=== PATIENT | female | born 1975 | race Caucasian/White ===

== ENCOUNTER 2017-10-29 17:30 | Inpatient (IN) | payer SELFPAY ==
[~2017-10-29] VITALS: Ht 162.6 cm; Wt 47.0 kg
[~2017-10-29 17:30] MED LIST: Z.0.NO CURRENT MEDS
[2017-10-29 17:32] VITALS: BP 131/87; PULSE 118; RESP 20; TEMP 99.1; O2SAT 99
[2017-10-29] MEDS ORDERED: CLINDAMYCIN INJ 900 MG in SODIUM CHLORIDE 0.9% INJ 100 ML IV ONE (19:45)
[2017-10-29] MEDS ORDERED: MORPHINE SULFATE 4 MG/ML INJ IV PUSH ONE (19:45)
[2017-10-29] MEDS ORDERED: SODIUM CHLORIDE 0.9% FLUSH 10 ML FLUSH IVF PRN (19:45)
[2017-10-29] MEDS ORDERED: ONDANSETRON HCL 4 MG/2 ML VIAL IV PUSH ONE (19:45)
--- NOTE | 2017-10-29 21:13 | PD ---
HPI . Lower extremity infection Chief Complaint: Skin Problem Time Seen by Provider: 19:36 Travel History International Travel<30 days: No Contact w/Intl Traveler<30days: No Traveled to known affect area: No History of Present Illness HPI This patient presents complaining with bilateral lower extremity pain. Onset of symptoms was approximately 5 days ago. She reports an associated low-grade fever. Her symptoms have been getting progressively worse. She rates the pain 10/10. It is worse on the left leg than the right leg. Patient denies IV drug abuse or skin popping. Patient admits that she was hospitalized an outside facility from approximately 10/26 until approximately 10/28. She then left AMA. She is not able to give me any meaningful history regarding her stay in the hospital there. PFSH Past Medical History Anxiety: Yes Diminished Hearing: No Gastrointestinal Disorders: Yes (crohn's) Hepatitis: Yes (hep c) Tetanus Vaccination: Unknown Influenza Vaccination: No ?: Not Past Surgical History Abdominal Surgery: Yes (EXPLORATORY LAP) Hysterectomy: Yes Social History Alcohol Use: No Tobacco Use: Yes (/2 PPD) Substance Use: Yes (HX IV DRUGS) Allergies-Medications (Allergen,Severity, Reaction): Coded Allergies: codeine (Verified Allergy, Severe, 10/29/17) ketorolac (Verified Allergy, Severe, 10/29/17) penicillin G (Unverified Allergy, Severe, 10/29/17) Reported Meds & Prescriptions Reported Meds & Active Scripts Active No Active Prescriptions or Reported Medications Review of Systems Except as stated in HPI: all other systems reviewed are Neg General / Constitutional: Positive: Fever Gastrointestinal: No: Nausea, Vomiting, Diarrhea Skin: Positive Change in Pigmentation, Positive Lesions Physical Exam Narrative GENERAL: This is a thin, chronically ill-appearing woman who looks older than her stated age of 42. SKIN: warm/dry. She has numerous pitted lesions on her arms and legs. She has large, black blisters on both lower extremities. Other areas of her lower extremities have tightly adherent black tissue. She has redness and warmth of the skin of the lower extremities, left worse than right. She has a similar lesion on the left auricle. HEAD: Normocephalic. EYES: Pupils equal and round. No scleral icterus. No injection or drainage. ENT: No nasal bleeding or discharge. Mucous membranes pink and moist. NECK: Trachea midline. Full range of motion without pain.. CARDIOVASCULAR: Regular rate and rhythm. Heart sounds are normal. RESPIRATORY: No accessory muscle use. Clear to auscultation. Breath sounds equal bilaterally. GASTROINTESTINAL: Abdomen soft. Nontender. Bowel sounds present. Nondistended. MUSCULOSKELETAL: No obvious deformities. NEUROLOGICAL: Awake and alert. No obvious cranial nerve deficits. Motor grossly within normal limits. Normal speech. PSYCHIATRIC: Appropriate mood and affect; insight and judgment normal. Data Data Last Documented VS Vital Signs Date Time Temp Pulse Resp B/P (MAP) Pulse Ox O2 Delivery O2 Flow Rate FiO2 10/29/17 17:32 99.1 118 20 131/87 (102) 99 Room Air Orders Orders Basic Metabolic Panel (Bmp) (10/29/17 19:43) Complete Blood Count With Diff (10/29/17 19:43) Blood Culture (10/29/17 19:43) Iv Access Insert/Monitor (10/29/17 19:43) Sodium Chloride 0.9% Flush (Ns Flush) (10/29/17 19:45) Clindamycin Inj (Cleocin Inj) (10/29/17 19:45) Morphine Inj (Morphine Inj) (10/29/17 19:45) Ondansetron Inj (Zofran Inj) (10/29/17 19:45) Ct Tib/Fib W Iv Contrast (10/29/17 ) Ct Tib/Fib W Iv Contrast (10/29/17 ) Drug Screen, Random Urine (10/29/17 20:47) Iohexol 350 Inj (Omnipaque 350 Inj) (10/29/17 23:19) Admit Order (Ed Use Only) (10/30/17 ) Vital Signs (Adult) Q4H (10/30/17 00:04) Diet Heart Healthy (10/30/17 Breakfast) Activity Oob With Assistance (10/30/17 00:04) Notify Dr: Other (10/30/17 00:04) Labs Laboratory Tests Test 10/29/17 21:08 10/29/17 21:35 Urine Opiates Screen POS Urine Barbiturates Screen NEG Urine Amphetamines Screen NEG Urine Benzodiazepines Screen NEG Urine Cocaine Screen POS Urine Cannabinoids Screen NEG White Blood Count 7.5 TH/MM3 Red Blood Count 4.13 MIL/MM3 Hemoglobin 11.2 GM/DL Hematocrit 33.5 % Mean Corpuscular Volume 81.2 FL Mean Corpuscular Hemoglobin 27.1 PG Mean Corpuscular Hemoglobin Concent 33.4 % Red Cell Distribution Width 15.7 % Platelet Count 211 TH/MM3 Mean Platelet Volume 8.4 FL Neutrophils (%) (Auto) 55.3 % Lymphocytes (%) (Auto) 32.7 % Monocytes (%) (Auto) 10.5 % Eosinophils (%) (Auto) 1.1 % Basophils (%) (Auto) 0.4 % Neutrophils # (Auto) 4.2 TH/MM3 Lymphocytes # (Auto) 2.5 TH/MM3 Monocytes # (Auto) 0.8 TH/MM3 Eosinophils # (Auto) 0.1 TH/MM3 Basophils # (Auto) 0.0 TH/MM3 CBC Comment DIFF FINAL Differential Comment Blood Urea Nitrogen 9 MG/DL Creatinine 0.73 MG/DL Random Glucose 89 MG/DL Calcium Level 8.3 MG/DL Sodium Level 133 MEQ/L Potassium Level 3.5 MEQ/L Chloride Level 99 MEQ/L Carbon Dioxide Level 27.7 MEQ/L Anion Gap 6 MEQ/L Estimat Glomerular Filtration Rate 87 ML/MIN MDM Medical Decision Making Medical Screen Exam Complete: Yes Emergency Medical Condition: Yes Medical Record Reviewed: Yes (medical records were obtained from [facility]. She had a drug screen positive for amphetamines, cocaine and opiates. She had a normal white blood count of 7.2 on 10/28. Blood cultures there were negative. Bilateral lower extremity ultrasounds were negative. ID consult was obtained. She was treated there with vancomycin, aztreonam and minocycline.) Differential Diagnosis My differential diagnosis includes but is not limited to localized wound infection, cellulitis, abscess Narrative Course This patient presents with cellulitis and necrotic skin of both lower extremities, left worse than right. I have ordered a CT of her lower extremities to rule out necrotizing fasciitis. Routine labs and blood cultures are also pending. I have ordered clindamycin. This was before I saw ID's recommendations for vancomycin, aztreonam and minocycline. However, her blood cultures there were negative. These medications were possibly not working. CBC & BMP Diagram 10/29/17 21:35 Calcium Level 8.3 L Drug screen is positive for opiates and cocaine CTs shows soft tissue swelling but no evidence of abscess and no evidence of necrotizing fasciitis. The patient will be admitted to the hospital for IV antibiotics and aggressive wound care. Sepsis Criteria SIRS Criteria (2 or more): Heart rate over 90 Sepsis Criteria (SIRS+source): Infect source susp/known Physician Communication Physician Communication Dr. Cifuentes Diagnosis Primary Impression: Cellulitis of leg, right Additional Impression: Cellulitis of leg, left Admitting Information Admitting Physician Requests: Admit Scripts No Active Prescriptions or Reported Meds Condition: Stable Oralia Dinh MD Oct 29, 2017 21:13
[2017-10-29 22:29] LABS: AUTOMATED NEUTROPHIL # 4.2 TH/MM3 (1.8-7.7); BASOPHIL % 0.4 % (0.0-2.0); EOSINOPHIL # 0.1 TH/MM3 (0-0.4); EOSINOPHIL % 1.1 % (0.0-4.0); HEMATOCRIT 33.5 % (35.0-46.0); HEMO FLAGS DIFF FINAL; LYMPH % 32.7 % (9.0-44.0); LYMPHOCYTE # 2.5 TH/MM3 (1.0-4.8); MEAN CELL VOLUME 81.2 FL (80.0-100.0); MEAN CORPUSCULAR HEMOGLOBIN 27.1 PG (27.0-34.0); MEAN CORPUSCULAR HGB CONC 33.4 % (32.0-36.0); MONO % 10.5 % (0.0-8.0); NEUT % 55.3 % (16.0-70.0); PLATELET COUNT 211 TH/MM3 (150-450); RED BLOOD COUNT 4.13 MIL/MM3 (4.00-5.30); RED CELL DISTRIBUTION WIDTH 15.7 % (11.6-17.2); WHITE BLOOD COUNT 7.5 TH/MM3 (4.0-11.0)
[2017-10-29 22:51] LABS: BICARBONATE 27.7 MEQ/L (21.0-32.0); POTASSIUM 3.5 MEQ/L (3.5-5.1)
[2017-10-29] MEDS ORDERED: IOHEXOL 350 MG/ML 10 ML VIAL (for RAD DIAG) IVCONTRAST ONE (23:19)
--- NOTE | 2017-10-29 23:44 | RADRPT ---
EXAM DATE/TIME: 10/29/2017 23:14 [facility] COMPARISON: No previous studies available for comparison. INDICATIONS : Bilateral lower leg infections. IV CONTRAST: 100 cc Omnipaque 350 (iohexol) IV ; Cumulative dose for multiple exams. RADIATION DOSE: 7.29 CTDIvol (mGy) ; Combined studies MEDICAL HISTORY : Hepatitis C. IVDU SURGICAL HISTORY : None. ENCOUNTER: Initial ACUITY: 1 day PAIN SCALE: 10/10 LOCATION: Bilateral lower legs. TECHNIQUE: Volumetric scanning of the tibia and fibula was performed. Using automated exposure control and adju stment of the mA and/or kV according to patient size, radiation dose was kept as low as reasonably ac hievable to obtain optimal diagnostic quality images. DICOM format image data is available [facility] for review and comparison. FINDINGS: BONES: No evidence of fracture. Alignment is within normal limits. JOINTS: No evidence of joint narrowing or effusion. SOFT TISSUES: Muscles, tendons, and neurovascular structures are grossly unremarkable. No evidence of mass, organi zed fluid collection or foreign body. There is subcutaneous edema of the left leg from the knee infer iorly to the foot greatest dorsally. No focal fluid collections are identified. No evidence of absces s. There is prominent edema along the lateral posterior aspect of the foot in the region of the heel. CONCLUSION: Soft tissue swelling without evidence for abscess or evidence of osteomyelitis. Juan Walker MD on October 29, 2017 at 23:40 Board Certified Radiologist. This report was verified electronically.
--- NOTE | 2017-10-29 23:45 | RADRPT ---
EXAM DATE/TIME: 10/29/2017 23:14 [facility] COMPARISON: CT TIBIA/FIBULA, W/CONTRAST, LEFT, October 29, 2017, 23:14. INDICATIONS : Bilateral lower leg infections. IV CONTRAST: 100 cc Omnipaque 350 (iohexol) IV ; Cumulative dose for multiple exams. RADIATION DOSE: 7.29 CTDIvol (mGy) ; Combined studies MEDICAL HISTORY : Hepatitis C. IVDU SURGICAL HISTORY : None. ENCOUNTER: Initial ACUITY: 1 week PAIN SCALE: 10/10 LOCATION: Bilateral lower legs. TECHNIQUE: Volumetric scanning of the tibia and fibula was performed. Using automated exposure control and adju stment of the mA and/or kV according to patient size, radiation dose was kept as low as reasonably ac hievable to obtain optimal diagnostic quality images. DICOM format image data is available [facility] for review and comparison. FINDINGS: BONES: No evidence of fracture. Alignment is within normal limits. JOINTS: No evidence of joint narrowing or effusion. SOFT TISSUES: Muscles, tendons, and neurovascular structures are grossly unremarkable. No evidence of mass, organi zed fluid collection or foreign body. The there is mild subcutaneous edema of the lower leg increasin g dorsally at the level of the foot without evidence for abscess, mass or osteomyelitis. CONCLUSION: Mild diffuse subcutaneous edema as above. No abscess. Juan Walker MD on October 29, 2017 at 23:43 Board Certified Radiologist. This report was verified electronically.
[2017-10-30] VITALS (8 sets, daily range): BP systolic 103–144; BP diastolic 65–101; PULSE 91–106; RESP 18–20; TEMP 98.4–99.5; O2SAT 95–100
[2017-10-30] MEDS ORDERED: SENNOSIDES 8.6 MG TAB PO PRN (00:15)
[2017-10-30] MEDS: HEPARIN SODIUM - SQ 10,000 UNITS/ML VIAL SQ SCH ×2 (00:15→14:30)
[2017-10-30] MEDS ORDERED: ACETAMINOPHEN 325 MG TAB PO PRN (00:15)
[2017-10-30] MEDS ORDERED: MAGNESIUM HYDROXIDE SUSP 30 ML CUP PO PRN (00:15)
[2017-10-30] MEDS ORDERED: SODIUM CHLORIDE 0.9% FLUSH 10 ML FLUSH IV FLUSH PRN (00:15)
[2017-10-30] MEDS ORDERED: NALOXONE HCL 0.4 MG/ML AMP IV PUSH PRN (00:15)
[2017-10-30] MEDS ORDERED: LACTULOSE SYRUP 20 GM/30 ML CUP PO PRN (00:15)
[2017-10-30] MEDS ORDERED: BISACODYL 10 MG SUPP RECTAL PRN (00:15)
[2017-10-30] MEDS ORDERED: Vancomycin Consult Pharmacy 1 EA OTHER SCH (00:15)
[2017-10-30] MEDS ORDERED: PIPERACIL-TAZO 3.375 GM PREMIX 50 ML IV SCH ×2 (01:30→09:00)
[2017-10-30] MEDS ORDERED: VANCOMYCIN INJ 800 MG in SODIUM CHLOR 0.9% 250 ML INJ 250 ML IV SCH (02:00)
[2017-10-30 07:53] LABS: AUTOMATED NEUTROPHIL # 3.5 TH/MM3 (1.8-7.7); BASOPHIL % 0.5 % (0.0-2.0); EOSINOPHIL # 0.1 TH/MM3 (0-0.4); HEMATOCRIT 32.6 % (35.0-46.0); HEMO FLAGS DIFF FINAL; LYMPH % 28.8 % (9.0-44.0); LYMPHOCYTE # 1.7 TH/MM3 (1.0-4.8); MEAN CELL VOLUME 80.8 FL (80.0-100.0); MEAN CORPUSCULAR HEMOGLOBIN 26.5 PG (27.0-34.0); MEAN CORPUSCULAR HGB CONC 32.8 % (32.0-36.0); MONO % 10.1 % (0.0-8.0); NEUT % 59.6 % (16.0-70.0); PLATELET COUNT 232 TH/MM3 (150-450); RED BLOOD COUNT 4.03 MIL/MM3 (4.00-5.30); RED CELL DISTRIBUTION WIDTH 15.5 % (11.6-17.2); WHITE BLOOD COUNT 5.8 TH/MM3 (4.0-11.0)
[2017-10-30 08:11] LABS: POTASSIUM 3.8 MEQ/L (3.5-5.1)
[2017-10-30] MEDS: SODIUM CHLORIDE 0.9% FLUSH 10 ML FLUSH IV FLUSH SCH ×2 (08:30→21:51)
[2017-10-30] MEDS: DOCUSATE SODIUM 50 MG/SENNA 8.6 MG TAB PO SCH ×2 (08:30→21:50)
--- NOTE | 2017-10-30 08:33 | HHI.HP ---
[facility] Service [facility] Primary Care Physician No Primary Care Physician Admission Diagnosis cellulitis Diagnoses: (1) Cellulitis of leg, right Diagnosis: Principal Chief Complaint: infection of both legs Travel History International Travel<30 Days: No Contact w/Intl Traveler <30 Da: No Traveled to Known Affected Are: No History of Present Illness patient is a 42 y/o female with history of Crohn's disease and hepatitis C, who presented to ER with pain, swelling and erythema of both legs. she says that it started as a ' black spot' on the left leg. this gradually got worse with progressive swelling and erythema of both legs- more on the left side. she went to [place] where she was started on antibiotics- however she left against medical advice.she says that she had on and off low grade fever. pain was moderate at the time of my evaluation. Review of Systems Constitutional: COMPLAINS OF: Fever, DENIES: Weight loss, Chills, Night Sweats Eyes: DENIES: Blurred vision, Diplopia, Vision loss, Double Vision Ears, nose, mouth, throat: DENIES: Tinnitus, Vertigo, Throat pain, Epistaxis Respiratory: DENIES: Apneas, Cough, Snoring, Wheezing, Hemoptysis, Sputum production, Shortness of breath Cardiovascular: DENIES: Chest pain, Palpitations, Syncope, Dyspnea on Exertion , PND, Lower Extremity Edema, Orthopnea, Claudication Gastrointestinal: DENIES: Abdominal pain, Black stools, Bloody stools, Constipation, Diarrhea, Nausea, Vomiting, Difficulty Swallowing, Anorexia Genitourinary: DENIES: Urinary frequency, Urgency, Hematuria, Dysuria Musculoskeletal: COMPLAINS OF: Muscle aches (both legs.), DENIES: Joint pain, Stiffness, Joint Swelling Integumentary: DENIES: Rash Neurologic: DENIES: Abnormal gait, Headache, Localized weakness, Paresthesias, Seizures, Speech Problems, Tremor, Poor Balance Psychiatric: DENIES: Anxiety, Confusion, Mood changes, Depression, Hallucinations, Agitation, Suicidal Ideation, Homicidal Ideation, Delusions Past Family Social History Past Medical History Crohn's disease. hepatitis C. Past Surgical History hysterectomy. Reported Medications none reported. Allergies: Coded Allergies: codeine (Verified Allergy, Severe, 10/29/17) ketorolac (Verified Allergy, Severe, 10/29/17) penicillin G (Verified Allergy, Intermediate, Rash, 10/30/17) Active Ordered Medications Current Medications Sodium Chloride (NS Flush) 2 ml UNSCH PRN IVF FLUSH AFTER USING IV ACCESS; Start 10/29/17 at 19:45 Clindamycin Phosphate 900 mg/ Sodium Chloride 106 ml @ 200 mls/hr ONCE ONCE IV Last administered on 10/29/17 21:56; Start 10/29/17 at 19:45; Stop at 20:16; Status DC Morphine Sulfate (Morphine Inj) 4 mg ONCE ONCE IV PUSH Last administered on 21:56; Start 10/29/17 at 19:45; Stop 10/29/17 at 19:49; Status DC Ondansetron HCl (Zofran Inj) 4 mg ONCE ONCE IV PUSH Last administered on 21:57; Start 10/29/17 at 19:45; Stop 10/29/17 at 19:49; Status DC Iohexol (Omnipaque 350 Inj) 100 ml STK-MED ONCE IVCONTRAST Last administered on 10/29/17 23:19; Start 10/29/17 at 23:19; Stop 10/29/17 at 23:20; Status DC Sodium Chloride (NS Flush) 2 ml UNSCH PRN IV FLUSH FLUSH AFTER USING IV ACCESS ; Start 10/30/17 at 00:15 Sodium Chloride (NS Flush) 2 ml BID IV FLUSH ; Start 10/30/17 at 09:00 Acetaminophen (Tylenol) 650 mg Q4H PRN PO TEMP > 100.4; Start 10/30/17 at 00:15 Ondansetron HCl (Zofran Inj) 4 mg Q6H PRN IVP NAUSEA OR VOMITING; Start at 00:15 Heparin Sodium (Porcine) (Heparin Inj) 5,000 units Q12H SQ ; Start 10/30/17 at 00:15 Naloxone HCl (Narcan Inj) 0.4 mg UNSCH PRN IV PUSH SEE LABEL COMMENTS; Start 10/30/17 at 00:15 Senna/Docusate Sodium (Damari-Colace) 1 tab BID PO ; Start 10/30/17 at 09:00 Magnesium Hydroxide (Milk Of Magnesia Liq) 30 ml Q12H PRN PO Mild constipation ; Start 10/30/17 at 00:15 Sennosides (Senokot) 17.2 mg Q12H PRN PO Moderate constipation; Start 10/30/17 at 00:15 Bisacodyl (Dulcolax Supp) 10 mg DAILY PRN RECTAL SEVERE CONSITIPATION/ IF NPO; Start 10/30/17 at 00:15 Lactulose (Lactulose Liq) 30 ml DAILY PRN PO SEVERE CONSITIPATION/ IF PO; Start 10/30/17 at 00:15 Pharmacy Profile Note 0 ml @ 0 mls/hr UNSCH OTHER ; Start 10/30/17 at 00:15 Vancomycin HCl 800 mg/Sodium Chloride 258 ml @ 250 mls/hr DAILY@0200 IV Last administered on 10/30/17 02:43; Start 10/30/17 at 02:00; Stop 10/30/17 at 06:00 ; Status DC Piperacillin Sod/ Tazobactam Sod 50 ml @ 100 mls/hr Q6H IV Last administered on 10/30/17 02:43; Start 10/30/17 at 01:30; Stop 10/30/17 at 07:31; Status DC Piperacillin Sod/ Tazobactam Sod 50 ml @ 100 mls/hr Q6H IV ; Start 10/30/17 at 09:00 Family History not relevant to this presentation. Social History smokes half a pack a day. doesn't drink. no illicit drug abuse. Physical Exam Vital Signs Vital Signs Date Time Temp Pulse Resp B/P (MAP) Pulse Ox O2 Delivery O2 Flow Rate FiO2 10/30/17 08:18 99.5 101 18 122/88 (99) 96 10/30/17 06:34 99.5 106 18 109/65 (80) 95 10/30/17 01:50 99.1 104 19 106/76 (86) 97 10/30/17 01:00 102 20 103/67 (79) 96 10/29/17 17:32 99.1 118 20 131/87 (102) 99 Room Air Physical Exam GENERAL: This is a well-nourished, well-developed patient, in no apparent distress. SKIN: erythema of both legs. HEAD: Atraumatic. Normocephalic. No temporal or scalp tenderness. EYES: Pupils equal round and reactive. Extraocular motions intact. No scleral icterus. No injection or drainage. ENT: Nose without bleeding, purulent drainage or septal hematoma. Throat without erythema, tonsillar hypertrophy or exudate. Uvula midline. Airway patent. NECK: Trachea midline. No JVD or lymphadenopathy. Supple, nontender, no meningeal signs. CARDIOVASCULAR: Regular rate and rhythm without murmurs, gallops, or rubs. RESPIRATORY: Clear to auscultation. Breath sounds equal bilaterally. No wheezes , rales, or rhonchi. GASTROINTESTINAL: Abdomen soft, non-tender, nondistended. No hepato-splenomegaly , or palpable masses. No guarding. MUSCULOSKELETAL: both legs/ feet warm, tender with some erythema- more on the left side. NEUROLOGICAL: Awake and alert. Cranial nerves II through XII intact. Motor and sensory grossly within normal limits. Five out of 5 muscle strength in all muscle groups. Normal speech. Laboratory Laboratory Tests Test 10/29/17 21:08 10/29/17 21:35 10/30/17 07:19 Urine Opiates Screen POS Urine Barbiturates Screen NEG Urine Amphetamines Screen NEG Urine Benzodiazepines Screen NEG Urine Cocaine Screen POS Urine Cannabinoids Screen NEG White Blood Count 7.5 5.8 Red Blood Count 4.13 4.03 Hemoglobin 11.2 10.7 Hematocrit 33.5 32.6 Mean Corpuscular Volume 81.2 80.8 Mean Corpuscular Hemoglobin 27.1 26.5 Mean Corpuscular Hemoglobin Concent 33.4 32.8 Red Cell Distribution Width 15.7 15.5 Platelet Count 211 232 Mean Platelet Volume 8.4 7.8 Neutrophils (%) (Auto) 55.3 59.6 Lymphocytes (%) (Auto) 32.7 28.8 Monocytes (%) (Auto) 10.5 10.1 Eosinophils (%) (Auto) 1.1 1.0 Basophils (%) (Auto) 0.4 0.5 Neutrophils # (Auto) 4.2 3.5 Lymphocytes # (Auto) 2.5 1.7 Monocytes # (Auto) 0.8 0.6 Eosinophils # (Auto) 0.1 0.1 Basophils # (Auto) 0.0 0.0 CBC Comment DIFF FINAL DIFF FINAL Differential Comment Blood Urea Nitrogen 9 7 Creatinine 0.73 0.60 Random Glucose 89 106 Calcium Level 8.3 8.2 Sodium Level 133 135 Potassium Level 3.5 3.8 Chloride Level 99 101 Carbon Dioxide Level 27.7 26.0 Anion Gap 6 8 Estimat Glomerular Filtration Rate 87 109 Date/Time Source Procedure Growth Status 10/29/17 21:50 Blood Peripheral Aerobic Blood Culture Pending Received 10/29/17 21:50 Blood Peripheral Anaerobic Blood Culture Pending Received Result Diagram: 10/30/17 0719 10/30/17 0719 Imaging Last Impressions Lower Extremity CT 10/29/17 0000 Signed Impressions: Service Date/Time: Sunday, October 29, 2017 23:14 - CONCLUSION: Mild diffuse subcutaneous edema as above. No abscess. MD Hernán Luong VTE Risk Assessment Hernán VTE Risk Assessment: Mod/High Risk (score >= 2) [place] Risk Assessment Model Point Value = 1 Point Value = 2 Point Value = 3 Point Value = 5 Age 41-60 Minor surgery BMI > 25 kg/m2 Swollen legs Varicose veins or History of unexplained or recurrent spontaneous Oral contraceptives or hormone replacement Sepsis (< 1 month) Serious lung disease, including pneumonia (< 1 month) Abnormal pulmonary function Acute myocardial infarction Congestive heart failure (< 1 month) History of inflammatory bowel disease Medical patient at bed rest Age 61-74 Arthroscopic surgery Major open surgery (> 45 min) Laparoscopic surgery (> 45 min) Malignancy Confined to bed (> 72 hours) Immobilizing plaster cast Central venous access Age >= 75 History of VTE Family history of VTE Factor V Leiden Prothrombin [id number] Lupus anticoagulant Anticardiolipin antibodies Elevated serum homocysteine Heparin-induced thrombocytopenia Other congenital or acquired thrombophilia Stroke (< 1 month) Elective arthroplasty Hip, pelvis, or leg fracture Acute spinal cord injury (< 1 month) Prophylaxis Regimen Total Risk Factor Score Risk Level Prophylaxis Regimen 0-1 Low Early ambulation 2 Moderate Order ONE of the following: *Sequential Compression Device (SCD) *Heparin 5000 units SQ BID 3-4 Higher Order ONE of the following medications: *Heparin 5000 units SQ TID *Enoxaparin/Lovenox 40 mg SQ daily (WT < 150 kg, CrCl > 30 mL/min) *Enoxaparin/Lovenox 30 mg SQ daily (WT < 150 kg, CrCl > 10-29 mL/min) *Enoxaparin/Lovenox 30 mg SQ BID (WT < 150 kg, CrCl > 30 mL/min) AND/OR *Sequential Compression Device (SCD) 5 or more Highest Order ONE of the following medications: *Heparin 5000 units SQ TID (Preferred with Epidurals) *Enoxaparin/Lovenox 40 mg SQ daily (WT < 150 kg, CrCl > 30 mL/min) *Enoxaparin/Lovenox 30 mg SQ daily (WT < 150 kg, CrCl > 10-29 mL/min) *Enoxaparin/Lovenox 30 mg SQ BID (WT < 150 kg, CrCl > 30 mL/min) AND *Sequential Compression Device (SCD) Assessment and Plan Assessment and Plan A/P - cellulitis of both lower extremities continue with broad spectrum IV antibiotics- follow the cultures- consulted wound care- will consult ID. -history of Crohn's disease and hepatitis C- f/u as outpatient. -DVT prophylaxis with subq Heparin. Discussed Condition With the patient. Physician Certification 2 Midnight Certification Type: Admission for Inpatient Services Order for Inpatient Services The services are ordered in accordance with Medicare regulations or non- Medicare payer requirements, as applicable. In the case of services not specified as inpatient-only, they are appropriately provided as inpatient services in accordance with the 2-midnight benchmark. Estimated LOS (days): 2 days is the estimated time the patient will need to remain in the hospital, assuming treatment plan goals are met and no additional complications. Post-Hospital Plan: Home Brandin Davis MD Oct 30, 2017 08:32
[2017-10-30] MEDS ORDERED: ACETAMINOPHEN/HYDROcodone 325 MG/5 MG TAB PO PRN (08:45)
[2017-10-30] MEDS: oxyCODONE/ACETAMINOPHEN 5 MG/325 MG TAB PO PRN ×3 (09:43→21:57)
--- NOTE | 2017-10-30 13:32 | PD.ID.CON ---
History of Present Illness Service ID Consult Requested By Reason for Consult Evaluation and Mment of Cellulitis bilateral LE and vasculitis. 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 Patient was recently seen at that hospital between 10/26/2017 to 10/28/2017. Per records it appears patient was thought to have severe sepsis and underwent sepsis workup including blood cultures which are negative on 2016 when I reviewed the received the records. The cultures are not final and need to be followed up. Patient was noted to have an acute change in mental status and had extensive purpura involving bilateral lower extremities and behind both ears. Presenting complaint per review of records is bruising of the lower extremities and pain. She reportedly was positive for cocaine and also had injected a synthetic IV illicit drug (per review of ID MD notes). Patient underwent a CT brain which did not show any acute abnormalities. CT Abd pelvis did not show any abscesses or infectious foci. Patient reportedly improved in mentation and then due to some unknown reason signed out AMA from . Patient received Azactam IV, Vanco IV, Minocycline and Levaquin at other hospital. ID consulted for evaluation and MMent of cellulitis bilateral LE and vasculitis. Review of Systems ROS Limitations: Poor Historian Past Family Social History Allergies: Coded Allergies: codeine (Verified Allergy, Severe, 10/29/17) ketorolac (Verified Allergy, Severe, 10/29/17) penicillin G (Verified Allergy, Intermediate, Rash, 10/30/17) Past Medical History Crohn's disease per history Hepatitis C treatment melissa Recurrent cellulitis Past Surgical History Appendectomy Hysterectomy ? Some bowel surgery for Crohn's Reported Medications Reported Meds & Active Scripts Active No Active Prescriptions or Reported Medications Active Ordered Medications Current Medications Medications (Trade) Dose Ordered Sig/Malgorzata Route Start Time Stop Time Status Last Admin (NS Flush) 2 ml UNSCH PRN IVF 10/29/17 19:45 (NS Flush) 2 ml UNSCH PRN IV FLUSH 10/30/17 00:15 (NS Flush) 2 ml BID IV FLUSH 10/30/17 09:00 10/30/17 08:30 (Tylenol) 650 mg Q4H PRN PO 10/30/17 00:15 (Zofran Inj) 4 mg Q6H PRN IVP 10/30/17 00:15 (Heparin Inj) 5,000 units Q12H SQ 10/30/17 00:15 (Narcan Inj) 0.4 mg UNSCH PRN IV PUSH 10/30/17 00:15 (Damari-Colace) 1 tab BID PO 10/30/17 09:00 (Milk Of Magnesia Liq) 30 ml Q12H PRN PO 10/30/17 00:15 (Senokot) 17.2 mg Q12H PRN PO 10/30/17 00:15 (Dulcolax Supp) 10 mg DAILY PRN RECTAL 10/30/17 00:15 (Lactulose Liq) 30 ml DAILY PRN PO 10/30/17 00:15 Pharmacy Profile Note 0 ml @ 0 mls/hr UNSCH OTHER 10/30/17 00:15 Piperacillin Sod/ Tazobactam Sod 50 ml @ 100 mls/hr Q6H IV 10/30/17 09:00 10/30/17 08:30 (Percocet 5-325 Mg) 1 tab Q4H PRN PO 10/30/17 10:00 10/30/17 09:43 Miscellaneous Information SPECIFIC LAB TO BE DRAWN:VANCO DATE TO... ONCE ONCE .XX 10/31/17 14:45 10/31/17 14:46 Vancomycin HCl 750 mg/Sodium Chloride 257.5 ml @ 250 mls/hr Q12H IV 10/30/17 15:00 Family History reviewed and NC to current ID problems. Social History reports her 1 year back. She denies IVDA but records indicate she admitted to RN at that hospital "used synthetic IV drugs" Drug screen positive for Cocaine. Smokes 1 ppd or more for many years. Does not want to quit. Counseled for 15 mins. Denies alcohol. Physical Exam Vital Signs Vital Signs Date Time Temp Pulse Resp B/P (MAP) Pulse Ox O2 Delivery O2 Flow Rate FiO2 10/30/17 11:54 98.5 101 18 126/88 (101) 100 10/30/17 08:18 99.5 101 18 122/88 (99) 96 10/30/17 06:34 99.5 106 18 109/65 (80) 95 12/9/17 01:50 99.1 104 19 106/76 (86) 97 10/30/17 01:00 102 20 103/67 (79) 96 10/29/17 17:32 99.1 118 20 131/87 (102) 99 Room Air Physical Exam GENERAL: This is a well-nourished, well-developed patient, in no apparent distress. SKIN: No rashes, ecchymoses or lesions. Cool and dry. HEAD: Atraumatic. Normocephalic. No temporal or scalp tenderness. EYES: Pupils equal round and reactive. Extraocular motions intact. No scleral icterus. No injection or drainage. ENT: Nose without bleeding, purulent drainage or septal hematoma. Throat without erythema, tonsillar hypertrophy or exudate. Uvula midline. Airway patent. NECK: Trachea midline. Supple, nontender, no meningeal signs. CARDIOVASCULAR: Regular rate and rhythm without murmurs, gallops, or rubs. RESPIRATORY: Clear to auscultation. Breath sounds equal bilaterally. No wheezes , rales, or rhonchi. GASTROINTESTINAL: Abdomen soft, non-tender, nondistended. MUSCULOSKELETAL: Bilateral LE with bluish black discoloration on legs, toes, hand finger tips, behind the ears. LLE with blister on heel with fluid. Tenderness on Left foot and sensitive to touch. Around these skin lesions there is area of erythema, warmth noted. NEUROLOGICAL: Awake and alert. Cranial nerves II through XII intact. Motor and sensory grossly within normal limits. Five out of 5 muscle strength in all muscle groups. Normal speech. Psych cooperative IV line sites with no e.o infection. Laboratory Laboratory Tests Test 10/29/17 21:08 10/29/17 21:35 10/30/17 07:19 Urine Opiates Screen POS Urine Barbiturates Screen NEG Urine Amphetamines Screen NEG Urine Benzodiazepines Screen NEG Urine Cocaine Screen POS Urine Cannabinoids Screen NEG White Blood Count 7.5 5.8 Red Blood Count 4.13 4.03 Hemoglobin 11.2 10.7 Hematocrit 33.5 32.6 Mean Corpuscular Volume 81.2 80.8 Mean Corpuscular Hemoglobin 27.1 26.5 Mean Corpuscular Hemoglobin Concent 33.4 32.8 Red Cell Distribution Width 15.7 15.5 Platelet Count 211 232 Mean Platelet Volume 8.4 7.8 Neutrophils (%) (Auto) 55.3 59.6 Lymphocytes (%) (Auto) 32.7 28.8 Monocytes (%) (Auto) 10.5 10.1 Eosinophils (%) (Auto) 1.1 1.0 Basophils (%) (Auto) 0.4 0.5 Neutrophils # (Auto) 4.2 3.5 Lymphocytes # (Auto) 2.5 1.7 Monocytes # (Auto) 0.8 0.6 Eosinophils # (Auto) 0.1 0.1 Basophils # (Auto) 0.0 0.0 CBC Comment DIFF FINAL DIFF FINAL Differential Comment Blood Urea Nitrogen 9 7 Creatinine 0.73 0.60 Random Glucose 89 106 Calcium Level 8.3 8.2 Sodium Level 133 135 Potassium Level 3.5 3.8 Chloride Level 99 101 Carbon Dioxide Level 27.7 26.0 Anion Gap 6 8 Estimat Glomerular Filtration Rate 87 109 Date/Time Source Procedure Growth Status 10/29/17 21:50 Blood Peripheral Aerobic Blood Culture - Preliminary NO GROWTH IN 1 DAY Resulted 10/29/17 21:50 Blood Peripheral Anaerobic Blood Culture - Preliminary NO GROWTH IN 1 DAY Resulted Result Diagram: 10/30/17 0719 10/30/17 0719 Imaging Last Impressions Lower Extremity CT 10/29/17 0000 Signed Impressions: Service Date/Time: Sunday, October 29, 2017 23:14 - CONCLUSION: Mild diffuse subcutaneous edema as above. No abscess. Juan Walker MD Assessment and Plan Assessment and Plan Cellulitis bilateral LE associated vasculitic changes. Heel with vasculitis changes. 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 Possible Endocarditis but these lesions don't look like septic emboli as they are on the ears bilaterally. Hepatitis C (can cause cryoglobulinemia) IVDA per records at Blood cultures pending from need to be followed. Penicillin allergy: rash, N/V. Recs DC Zosyn IV (patient reportedly allergic to Penicillin and recd Azactam at other hospital) Start Cefepime IV d/w RN to watch for s.o allergy and call if airway issues or rash. Already switching antibiotic but the Penicillin will likely be still in her body till eliminated for another 24 hours. Continue Vanco IV (target 10-15) Vascular surgery consult (vasculitis) Vasculitis workup: AMIE, SLE, RA, Cryoglobulinemia (cocaine, synthetic drugs IV, Hep C induced cryoglobulinemia) Check 2 D ECHO to r/o endocarditis. Follow blood cultures from [facility]. d/w RN and pt. Critical thinking and decision making. Allergies reviewed. [facility] records reviewed. Zora Pompa MD Oct 30, 2017 13:32
[2017-10-30] MEDS: ONDANSETRON HCL 4 MG/2 ML VIAL IVP PRN ×2 (14:38→20:31)
[2017-10-30] MEDS: CEFEPIME INJ 2,000 MG in SODIUM CHLORIDE 0.9% INJ 100 ML IV SCH ×2 (16:02→21:50)
[2017-10-30] MEDS: VANCOMYCIN INJ 750 MG in SODIUM CHLOR 0.9% 250 ML INJ 250 ML IV SCH (17:28)
[2017-10-30 17:35] LABS: RHEUMATOID FACTOR TRIGGER LESS THAN 10.0 IU/ML (0.0-14.9)
[2017-10-30] MEDS ORDERED: oxyCODONE/ACETAMINOPHEN 5 MG/325 MG TAB PO PRN (19:45)
[2017-10-30] MEDS: MORPHINE SULFATE 4 MG/ML INJ IV PRN (20:32)
[2017-10-31] VITALS: BP 143/100; PULSE 89; RESP 18; TEMP 98.4; O2SAT 97
[2017-10-31] MEDS: MORPHINE SULFATE 4 MG/ML INJ IV PRN ×6 (00:40→21:41)
[2017-10-31] MEDS: HEPARIN SODIUM - SQ 10,000 UNITS/ML VIAL SQ SCH ×3 (00:41→23:57)
[2017-10-31] MEDS: VANCOMYCIN INJ 750 MG in SODIUM CHLOR 0.9% 250 ML INJ 250 ML IV SCH ×2 (03:08→16:33)
[2017-10-31] MEDS: oxyCODONE/ACETAMINOPHEN 5 MG/325 MG TAB PO PRN ×6 (03:08→23:57)
[2017-10-31 04:00] VITALS: BP 139/95; PULSE 101; RESP 17; TEMP 98.2; O2SAT 97
[2017-10-31] MEDS: CEFEPIME INJ 2,000 MG in SODIUM CHLORIDE 0.9% INJ 100 ML IV SCH ×3 (04:52→21:41)
[2017-10-31 08:24] VITALS: BP 137/101; PULSE 94; RESP 17; TEMP 97.6; O2SAT 99
--- NOTE | 2017-10-31 08:47 | HHI.PR ---
Subjective Remarks f/u; lower extremity cellulitis in no acute distress. remains afebrile. still with some pain to both lower extremities. d/w the RN. Objective Vitals Vital Signs Date Time Temp Pulse Resp B/P (MAP) Pulse Ox O2 Delivery O2 Flow Rate FiO2 10/31/17 08:24 97.6 94 17 137/101 (113) 99 10/31/17 04:00 98.2 101 17 139/95 (110) 97 10/31/17 00:00 98.4 89 18 143/100 (114) 97 10/30/17 21:58 141/92 (108) 10/30/17 20:45 98.4 96 20 144/101 (115) 97 10/30/17 16:27 98.4 91 18 135/98 (110) 98 10/30/17 11:54 98.5 101 18 126/88 (101) 100 I/O 10/30/17 10/30/17 10/30/17 10/31/17 10/31/17 10/31/17 07:00 15:00 23:00 07:00 15:00 23:00 Intake Total 300 ml 290 ml 200 ml 590 ml Balance 300 ml 290 ml 200 ml 590 ml Intake Oral 240 ml 240 ml IV Total 300 ml 50 ml 200 ml 350 ml # Voids 2 4 1 # Bowel Movements 1 Result Diagram: 10/30/17 0719 10/30/17 0719 Imaging Last Impressions Lower Extremity CT 10/29/17 0000 Signed Impressions: Service Date/Time: Sunday, October 29, 2017 23:14 - CONCLUSION: Mild diffuse subcutaneous edema as above. No abscess. Juan Walker MD Objective Remarks GENERAL: This is a well-nourished, well-developed patient, in no apparent distress. CARDIOVASCULAR: Regular rate and regular rhythm without murmurs, gallops, or rubs. RESPIRATORY: Clear to auscultation. Breath sounds equal bilaterally. No wheezes , rales, or rhonchi. GASTROINTESTINAL: Abdomen soft, non-tender, nondistended. Normal, active bowel sounds MUSCULOSKELETAL: swelling of the left foot/leg NEURO: Alert & Oriented x4 to person, place, time, situation. Moves all ext x4 skin; erythema over both lower extremities Medications and IVs Current Medications Sodium Chloride (NS Flush) 2 ml UNSCH PRN IVF FLUSH AFTER USING IV ACCESS; Start 10/29/17 at 19:45; Stop 10/30/17 at 19:46; Status DC Clindamycin Phosphate 900 mg/ Sodium Chloride 106 ml @ 200 mls/hr ONCE ONCE IV Last administered on 10/29/17 21:56; Start 10/29/17 at 19:45; Stop at 20:16; Status DC Morphine Sulfate (Morphine Inj) 4 mg ONCE ONCE IV PUSH Last administered on 21:56; Start 10/29/17 at 19:45; Stop 10/29/17 at 19:49; Status DC Ondansetron HCl (Zofran Inj) 4 mg ONCE ONCE IV PUSH Last administered on 21:57; Start 10/29/17 at 19:45; Stop 10/29/17 at 19:49; Status DC Iohexol (Omnipaque 350 Inj) 100 ml STK-MED ONCE IVCONTRAST Last administered on 10/29/17 23:19; Start 10/29/17 at 23:19; Stop 10/29/17 at 23:20; Status DC Sodium Chloride (NS Flush) 2 ml UNSCH PRN IV FLUSH FLUSH AFTER USING IV ACCESS ; Start 10/30/17 at 00:15 Sodium Chloride (NS Flush) 2 ml BID IV FLUSH Last administered on 10/30/17 21: 51; Start 10/30/17 at 09:00 Acetaminophen (Tylenol) 650 mg Q4H PRN PO FEVER; Start 10/30/17 at 00:15 Ondansetron HCl (Zofran Inj) 4 mg Q6H PRN IVP NAUSEA OR VOMITING Last administered on 10/30/17 20:31; Start 10/30/17 at 00:15 Heparin Sodium (Porcine) (Heparin Inj) 5,000 units Q12H SQ Last administered on 10/30/17 14:30; Start 10/30/17 at 00:15 Naloxone HCl (Narcan Inj) 0.4 mg UNSCH PRN IV PUSH SEE LABEL COMMENTS; Start 10/30/17 at 00:15 Senna/Docusate Sodium (Damari-Colace) 1 tab BID PO ; Start 10/30/17 at 09:00 Magnesium Hydroxide (Milk Of Magnesia Liq) 30 ml Q12H PRN PO Mild constipation ; Start 10/30/17 at 00:15 Sennosides (Senokot) 17.2 mg Q12H PRN PO Moderate constipation; Start 10/30/17 at 00:15 Bisacodyl (Dulcolax Supp) 10 mg DAILY PRN RECTAL SEVERE CONSITIPATION/ IF NPO; Start 10/30/17 at 00:15 Lactulose (Lactulose Liq) 30 ml DAILY PRN PO SEVERE CONSITIPATION/ IF PO; Start 10/30/17 at 00:15 Pharmacy Profile Note 0 ml @ 0 mls/hr UNSCH OTHER ; Start 10/30/17 at 00:15 Vancomycin HCl 800 mg/Sodium Chloride 258 ml @ 250 mls/hr DAILY@0200 IV Last administered on 10/30/17 02:43; Start 10/30/17 at 02:00; Stop 10/30/17 at 06:00 ; Status DC Piperacillin Sod/ Tazobactam Sod 50 ml @ 100 mls/hr Q6H IV Last administered on 10/30/17 02:43; Start 10/30/17 at 01:30; Stop 10/30/17 at 07:31; Status DC Piperacillin Sod/ Tazobactam Sod 50 ml @ 100 mls/hr Q6H IV Last administered on 10/30/17 08:30; Start 10/30/17 at 09:00; Stop 10/30/17 at 13:56; Status DC Acetaminophen/ Hydrocodone Bitart (Festus 5-325 Mg) 1 tab Q4H PRN PO PAIN 6-10 ; Start 10/30/17 at 08:45; Status UNV Oxycodone/ Acetaminophen (Percocet 5-325 Mg) 1 tab Q4H PRN PO PAIN SCALE 6 TO 10 Last administered on 10/30/17 14:29; Start 10/30/17 at 10:00; Stop 10/30/17 at 19:43; Status DC Miscellaneous Information SPECIFIC LAB TO BE DRAWN:VANCO DATE TO... ONCE ONCE .XX ; Start 10/31/17 at 14:45; Stop 10/31/17 at 14:46 Vancomycin HCl 750 mg/Sodium Chloride 257.5 ml @ 250 mls/hr Q12H IV Last administered on 10/31/17 03:08; Start 10/30/17 at 15:00 Cefepime HCl 2000 mg/Sodium Chloride 100 ml @ 200 mls/hr Q8H IV Last administered on 10/31/17 04:52; Start 10/30/17 at 14:00 Oxycodone/ Acetaminophen (Percocet 5-325 Mg) 1 tab Q4H PRN PO PAIN SCALE 1 TO 5; Start 10/30/17 at 19:45 Oxycodone/ Acetaminophen (Percocet 5-325 Mg) 2 tab Q4H PRN PO PAIN SCALE 6 TO 10 Last administered on 10/31/17 07:20; Start 10/30/17 at 19:45 Morphine Sulfate (Morphine Inj) 2 mg Q4H PRN IV BREAKTHROUGH PAIN Last administered on 10/31/17 04:23; Start 10/30/17 at 20:00 A/P Problem List: (1) Cellulitis of leg, right ICD Code: L03.115 - Cellulitis of right lower limb Status: Acute Assessment and Plan A/P - cellulitis of both lower extremities ID consult appreciated; started on Vanco and Cefepime- blood cultures negative so far. RF negative- AMIE / HIV screen pending- echo pending- will follow the serology. vascular surgery consulted. ( [facility] records reviewed.) -history of Crohn's disease and hepatitis C- f/u as outpatient. -DVT prophylaxis with subq Heparin. Brandin Davis MD Oct 31, 2017 08:47
[2017-10-31] MEDS: DOCUSATE SODIUM 50 MG/SENNA 8.6 MG TAB PO SCH ×2 (09:00→19:51)
[2017-10-31] MEDS: SODIUM CHLORIDE 0.9% FLUSH 10 ML FLUSH IV FLUSH SCH ×2 (09:00→21:41)
--- NOTE | 2017-10-31 10:12 | PD.VS.CON ---
History of Present Illness Chief Complaint: B LE vasculitis Consult Requested by: Medical service History of Present Illness 42 yo female with hepatitis and Crohn's who presents with worsening of recurrent B LE skin lesions that are very painful. They have happened in the past and are on both legs as well as finger and ears. She is not on steroids chronically. She admits to cocaine use. Past/Family/Social History Past Medical History Crohn's hepatitis Past Surgical History ex lap for Crohn's [employer] surgery Social History + tobacco + IVDA + cocaine Family History NC Home Medications No Active Prescriptions or Reported Meds Coded Allergies: codeine (Verified Allergy, Severe, 10/29/17) ketorolac (Verified Allergy, Severe, 10/29/17) penicillin G (Verified Allergy, Intermediate, Rash, 10/30/17) Review of Systems Constitutional: COMPLAINS OF: Chills Cardiovascular: DENIES: Chest pain, Lower Extremity Edema, Claudication Gastrointestinal: COMPLAINS OF: Abdominal pain, Diarrhea Musculoskeletal: COMPLAINS OF: Joint Swelling, Back pain Integumentary: COMPLAINS OF: Abnormal pigmentation, Rash Neurologic: COMPLAINS OF: Abnormal gait Physical Exam Vitals/I&O Date Time Temp Pulse Resp B/P (MAP) Pulse Ox O2 Delivery O2 Flow Rate FiO2 10/31/17 08:24 97.6 94 17 137/101 (113) 99 10/31/17 04:00 98.2 101 17 139/95 (110) 97 10/31/17 00:00 98.4 89 18 143/100 (114) 97 10/30/17 21:58 141/92 (108) 10/30/17 20:45 98.4 96 20 144/101 (115) 97 10/30/17 16:27 98.4 91 18 135/98 (110) 98 10/30/17 11:54 98.5 101 18 126/88 (101) 100 10/31/17 10/31/17 10/31/17 07:00 15:00 23:00 Intake Total 590 ml Balance 590 ml Neuro: No distress, conversant HEENT: anicteric sclera Neck: no JVD Heart: reg rate Lungs: coarse B Vascular: palpable DP bilaterally Extremities: erythematous irregularly shaped lesions B LE paz anterior shins, sparing the feet Laboratory Tests Test 10/30/17 15:40 Rheumatoid Factor Screen NEGATIVE Rheumatoid Factor Titer Date/Time Source Procedure Growth Status 10/29/17 21:50 Blood Peripheral Aerobic Blood Culture - Preliminary NO GROWTH IN 1 DAY Resulted 10/29/17 21:50 Blood Peripheral Anaerobic Blood Culture - Preliminary NO GROWTH IN 1 DAY Resulted Assessment and Plan Plan Likely vasculitis of some etiology - drugs/autoimmune. 1. Wound care 2. Potentially steroids, check ESR 3. Dermatology/rheumatology consult 4. Unlikely to need vascular intervention Thomas Jerome MD FACS [employer] car chauffeur [facility] - Heart and Vascular Surgery at [facility] [phone] Thomas Jerome MD Oct 31, 2017 10:12
[2017-10-31 12:19] VITALS: BP 143/102; PULSE 118; RESP 18; TEMP 97.9; O2SAT 99
--- NOTE | 2017-10-31 13:35 | HHI.IDPN ---
Subjective Subjective Remarks is a 42 y/o CF with PMHx significant for recurrent cellulitis, Hepatitis C treatment naive, reported history of IVDA per [facility] records. Patient was recently seen at that hospital between 10/26/2017 to 10/28/2017. Per records it appears patient was thought to have severe sepsis and underwent sepsis workup including blood cultures which are negative on 2016 when I reviewed the received the records. The cultures are not final and need to be followed up. Patient was noted to have an acute change in mental status and had extensive purpura involving bilateral lower extremities and behind both ears. Presenting complaint per review of records is bruising of the lower extremities and pain. She reportedly was positive for cocaine and also had injected a synthetic IV illicit drug (per review of ID MD notes). Patient underwent a CT brain which did not show any acute abnormalities. CT Abd pelvis did not show any abscesses or infectious foci. Patient reportedly improved in mentation and then due to some unknown reason signed out AMA from . Patient received Azactam IV, Vanco IV, Minocycline and Levaquin at other hospital. ID consulted for evaluation and MMent of cellulitis bilateral LE and vasculitis. Overnight events reviewed. No fevers No rash Reports 3 bowel movements On further questioning patient reports she has nausea and diarrhea every few weeks but not on any treatment for Crohns disease. She reports being diagnosed with Crohns disease in [id number] period at a hospital in [place]. she reports she had appendectomy after which her flares started. she had an EGD and ? colonoscopy then. Antibiotics cefepime IV Vanco IV Lines PIV sites with no e.o infection Past Medical History Past Medical History Crohn's disease per history Hepatitis C treatment melissa Recurrent cellulitis Past Surgical History Appendectomy Hysterectomy ? Some bowel surgery for Crohn's Allergies: Coded Allergies: codeine (Verified Allergy, Severe, 10/29/17) ketorolac (Verified Allergy, Severe, 10/29/17) penicillin G (Verified Allergy, Intermediate, Rash, 10/30/17) Objective . Vital Signs Date Time Temp Pulse Resp B/P (MAP) Pulse Ox O2 Delivery O2 Flow Rate FiO2 10/31/17 12:19 97.9 118 18 143/102 (116) 99 10/31/17 08:24 97.6 94 17 137/101 (113) 99 10/31/17 04:00 98.2 101 17 139/95 (110) 97 10/31/17 00:00 98.4 89 18 143/100 (114) 97 10/30/17 21:58 141/92 (108) 10/30/17 20:45 98.4 96 20 144/101 (115) 97 10/30/17 16:27 98.4 91 18 135/98 (110) 98 10/31/17 10/31/17 11/01/17 15:00 23:00 07:00 # Voids 1 . Laboratory Tests Test 10/29/17 21:35 10/30/17 07:19 White Blood Count 7.5 TH/MM3 5.8 TH/MM3 Red Blood Count 4.13 MIL/MM3 4.03 MIL/MM3 Hemoglobin 11.2 GM/DL 10.7 GM/DL Hematocrit 33.5 % 32.6 % Mean Corpuscular Volume 81.2 FL 80.8 FL Mean Corpuscular Hemoglobin 27.1 PG 26.5 PG Mean Corpuscular Hemoglobin Concent 33.4 % 32.8 % Red Cell Distribution Width 15.7 % 15.5 % Platelet Count 211 TH/MM3 232 TH/MM3 Mean Platelet Volume 8.4 FL 7.8 FL Neutrophils (%) (Auto) 55.3 % 59.6 % Lymphocytes (%) (Auto) 32.7 % 28.8 % Monocytes (%) (Auto) 10.5 % 10.1 % Eosinophils (%) (Auto) 1.1 % 1.0 % Basophils (%) (Auto) 0.4 % 0.5 % Neutrophils # (Auto) 4.2 TH/MM3 3.5 TH/MM3 Lymphocytes # (Auto) 2.5 TH/MM3 1.7 TH/MM3 Monocytes # (Auto) 0.8 TH/MM3 0.6 TH/MM3 Eosinophils # (Auto) 0.1 TH/MM3 0.1 TH/MM3 Basophils # (Auto) 0.0 TH/MM3 0.0 TH/MM3 CBC Comment DIFF FINAL DIFF FINAL Differential Comment Laboratory Tests Test 10/29/17 21:35 10/30/17 07:19 Blood Urea Nitrogen 9 MG/DL 7 MG/DL Creatinine 0.73 MG/DL 0.60 MG/DL Random Glucose 89 MG/DL 106 MG/DL Calcium Level 8.3 MG/DL 8.2 MG/DL Sodium Level 133 MEQ/L 135 MEQ/L Potassium Level 3.5 MEQ/L 3.8 MEQ/L Chloride Level 99 MEQ/L 101 MEQ/L Carbon Dioxide Level 27.7 MEQ/L 26.0 MEQ/L Anion Gap 6 MEQ/L 8 MEQ/L Estimat Glomerular Filtration Rate 87 ML/MIN 109 ML/MIN Microbiology Date/Time Source Procedure Growth Status 10/29/17 21:50 Blood Peripheral Aerobic Blood Culture - Preliminary NO GROWTH IN 2 DAYS Resulted 10/29/17 21:50 Blood Peripheral Anaerobic Blood Culture - Preliminary NO GROWTH IN 2 DAYS Resulted 10/29/17 21:35 Blood Peripheral Aerobic Blood Culture - Preliminary NO GROWTH IN 2 DAYS Resulted 10/29/17 21:35 Blood Peripheral Anaerobic Blood Culture - Preliminary NO GROWTH IN 2 DAYS Resulted Imaging Last Impressions Lower Extremity CT 10/29/17 0000 Signed Impressions: Service Date/Time: Sunday, October 29, 2017 23:14 - CONCLUSION: Mild diffuse subcutaneous edema as above. No abscess. Juan Walker MD Physical Exam GENERAL: This is a well-nourished, well-developed patient, in no apparent distress. SKIN: No rashes, ecchymoses or lesions. Cool and dry. HEAD: Atraumatic. Normocephalic. No temporal or scalp tenderness. EYES: Pupils equal round and reactive. Extraocular motions intact. No scleral icterus. No injection or drainage. ENT: Nose without bleeding, purulent drainage or septal hematoma. Throat without erythema, tonsillar hypertrophy or exudate. Uvula midline. Airway patent. NECK: Trachea midline. Supple, nontender, no meningeal signs. CARDIOVASCULAR: Regular rate and rhythm without murmurs, gallops, or rubs. RESPIRATORY: Clear to auscultation. Breath sounds equal bilaterally. No wheezes , rales, or rhonchi. GASTROINTESTINAL: Abdomen soft, non-tender, nondistended. MUSCULOSKELETAL: Bilateral LE with bluish black discoloration on legs, toes, hand finger tips, behind the ears. LLE with blister on heel with fluid. Tenderness on Left foot and sensitive to touch. Around these skin lesions there is area of erythema, warmth noted. NEUROLOGICAL: Awake and alert. Cranial nerves II through XII intact. Motor and sensory grossly within normal limits. Five out of 5 muscle strength in all muscle groups. Normal speech. Psych cooperative IV line sites with no e.o infection. Assessment & Plan Remarks Cellulitis bilateral LE associated vasculitic changes. Heel with vasculitis changes. 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 Possible Endocarditis but these lesions don't look like septic emboli as they are on the ears bilaterally. Hepatitis C (can cause cryoglobulinemia) IVDA per records at Blood cultures pending from need to be followed. Penicillin allergy: rash, N/V. Recs Continue Cefepime IV Continue Vanco IV (target 10-15) Vascular surgery consult (vasculitis) appreciated. Follow Vasculitis workup: AMIE, SLE, RA, Cryoglobulinemia (cocaine, synthetic drugs IV, Hep C induced cryoglobulinemia) Follow 2 D ECHO to r/o endocarditis. Follow blood cultures from [facility]. d/w Dr. Davis: needs GI eval to confirm diagnosis of Crohns related vasculitis or pyoderma gangreonosum etc. Once EGD and Colonoscopy done patient can be started on steroid trial. 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 d/w RN and pt. Critical thinking and decision making. Allergies reviewed. records reviewed. Zora Pompa MD Oct 31, 2017 13:35
--- NOTE | 2017-10-31 14:18 | ECHRPT ---
Indication: sepsis/ endocarditis CONCLUSIONS The left ventricular systolic function is moderately reduced with an estimated ejection fraction in the range of 40-45%. Trace mitral valve regurgitation. There is trace tricuspid valve regurgitation. No evidence for endocarditis BP: 139 / 95 HR: 110 Rhythm: MEASUREMENTS (Male / Female) Normal Values Technical Quality:Good 2D ECHO LV Diastolic Diameter PLAX 4.2 cm 4.2 - 5.9 / 3.9 - 5.3 cm LV Systolic Diameter PLAX 3.3 cm IVS Diastolic Thickness 1.0 cm 0.6 - 1.0 / 0.6 - 0.9 cm LVPW Diastolic Thickness 0.7 cm 0.6 - 1.0 / 0.6 - 0.9 cm LV Relative Wall Thickness 0.4 RV Internal Dim ED PLAX 1.7 cm LA Systolic Diameter LX 3.5 cm 3.0 - 4.0 / 2.7 - 3.8 cm LV Ejection Fraction MOD 4C 40.5 % LV Cardiac Index MOD 4C 2414.2 cm/minm LV Ejection Fraction 4C AL 40.0 % LV Cardiac Index 4C AL 2467.4 cm/minm DOPPLER MR Peak Velocity 543.0 cm/s MR Peak Gradient 117.9 mmHg Mitral E Point Velocity 58.2 cm/s Mitral A Point Velocity 63.7 cm/s Mitral E to A Ratio 0.9 TR Peak Velocity 221.0 cm/s TR Peak Gradient 19.5 mmHg Right Atrial Pressure 10.0 mmHg Pulmonary Artery Systolic Pressu 29.5 mmHg Right Ventricular Systolic Press 29.5 mmHg FINDINGS LEFT VENTRICLE Normal left ventricular size. Wall thickness is normal. The left ventricular systolic function is moderately reduced with an estimated ejection fraction in the range of 40-45%. There is global left ventricular dysfunction. RIGHT VENTRICLE Normal right ventricular size and systolic function. LEFT ATRIUM The left atrial size is normal. RIGHT ATRIUM The right atrial size is normal. ATRIAL SEPTUM Normal atrial septal thickness without atrial level shunting by limited color doppler interrogation. AORTA The aortic root and proximal ascending aorta are normal in size on limited imaging. MITRAL VALVE Structurally normal mitral valve. No mitral valve stenosis. Trace mitral valve regurgitation. AORTIC VALVE Trileaflet aortic valve. No aortic valve regurgitation. No aortic valve stenosis. TRICUSPID VALVE Structurally normal tricuspid valve. There is trace tricuspid valve regurgitation. No tricuspid valve stenosis. PULMONARY VALVE No pulmonary valve regurgitation or stenosis. VESSELS The inferior vena cava is normal in size. PERICARDIUM No pericardial effusion. Prosper Conner DO (Electronically Signed) Final Date:31 October 2017 14:17
[2017-10-31] MEDS ORDERED: PHARMACY ORDERED LAB ONE (14:45)
[2017-10-31 15:47] LABS: VANCOMYCIN TROUGH 5.4 MCG/ML (5.0-10.0)
[2017-10-31 16:53] VITALS: BP 111/80; PULSE 98; RESP 18; TEMP 97.4; O2SAT 98
[2017-10-31 18:42] LABS: BACTERIA, URINE RARE /hpf; BLOOD, URINE MOD (NEG); COMMENT (UR) CULTURE INDICATED; CULTURE IF INDICATED CULTURE INDICATED; GLUCOSE,URINE NEG (NEG); KETONE, URINE TRACE mg/dL (NEG); MUCUS URINE FEW /lpf (OCC); NITRITE,URINE NEG (NEG); SQUAMOUS EPITHELIAL CELL URINE 7 /hpf (0-5); URINE COLOR YELLOW (YELLW/STRAW)
[2017-10-31 19:52] VITALS: BP 134/85; PULSE 119; RESP 18; TEMP 98.6; O2SAT 96
[2017-11-01] VITALS: BP 131/94; PULSE 103; RESP 21; TEMP 99.9; O2SAT 96
[2017-11-01] MEDS: MORPHINE SULFATE 4 MG/ML INJ IV PRN ×5 (01:53→17:58)
[2017-11-01] MEDS: VANCOMYCIN INJ 750 MG in SODIUM CHLOR 0.9% 250 ML INJ 250 ML IV SCH ×3 (01:53→23:59)
[2017-11-01] MEDS: oxyCODONE/ACETAMINOPHEN 5 MG/325 MG TAB PO PRN ×5 (04:54→20:53)
[2017-11-01] MEDS: CEFEPIME INJ 2,000 MG in SODIUM CHLORIDE 0.9% INJ 100 ML IV SCH ×3 (05:05→23:59)
[2017-11-01 05:09] VITALS: BP 139/98; PULSE 115; RESP 20; TEMP 99.3; O2SAT 97
--- NOTE | 2017-11-01 07:37 | HHI.PR ---
Subjective Remarks in no acute distress. Tmax 99.9. pain to the legs seems to be better. no new complaints. Objective Vitals Vital Signs Date Time Temp Pulse Resp B/P (MAP) Pulse Ox O2 Delivery O2 Flow Rate FiO2 11/01/17 05:09 99.3 115 20 139/98 (112) 97 11/01/17 00:00 99.9 103 21 131/94 (106) 96 10/31/17 19:52 98.6 119 18 134/85 (101) 96 10/31/17 16:53 97.4 98 18 111/80 (90) 98 10/31/17 12:19 97.9 118 18 143/102 (116) 99 10/31/17 08:24 97.6 94 17 137/101 (113) 99 I/O 10/31/17 10/31/17 10/31/17 11/01/17 11/01/17 11/01/17 07:00 15:00 23:00 07:00 15:00 23:00 Intake Total 590 ml 100 ml 837.5 ml 350 ml Balance 590 ml 100 ml 837.5 ml 350 ml Intake Oral 240 ml 480 ml IV Total 350 ml 100 ml 357.5 ml 350 ml # Voids 4 1 3 Result Diagram: 10/30/1719 10/30/1719 Imaging Last Impressions Lower Extremity CT 10/29/17 0000 Signed Impressions: Service Date/Time: Sunday, October 29, 2017 23:14 - CONCLUSION: Mild diffuse subcutaneous edema as above. No abscess. Juan Walker MD Objective Remarks GENERAL: This is a well-nourished, well-developed patient, in no apparent distress. CARDIOVASCULAR: Regular rate and regular rhythm without murmurs, gallops, or rubs. RESPIRATORY: Clear to auscultation. Breath sounds equal bilaterally. No wheezes , rales, or rhonchi. GASTROINTESTINAL: Abdomen soft, non-tender, nondistended. Normal, active bowel sounds MUSCULOSKELETAL: swelling of the left foot/leg NEURO: Alert & Oriented x4 to person, place, time, situation. Moves all ext x4 skin; erythema over both lower extremities Medications and IVs Current Medications Sodium Chloride (NS Flush) 2 ml UNSCH PRN IVF FLUSH AFTER USING IV ACCESS; Start 10/29/17 at 19:45; Stop 10/30/17 at 19:46; Status DC Clindamycin Phosphate 900 mg/ Sodium Chloride 106 ml @ 200 mls/hr ONCE ONCE IV Last administered on 10/29/17 21:56; Start 10/29/17 at 19:45; Stop at 20:16; Status DC Morphine Sulfate (Morphine Inj) 4 mg ONCE ONCE IV PUSH Last administered on 21:56; Start 10/29/17 at 19:45; Stop 10/29/17 at 19:49; Status DC Ondansetron HCl (Zofran Inj) 4 mg ONCE ONCE IV PUSH Last administered on 21:57; Start 10/29/17 at 19:45; Stop 10/29/17 at 19:49; Status DC Iohexol (Omnipaque 350 Inj) 100 ml STK-MED ONCE IVCONTRAST Last administered on 10/29/17 23:19; Start 10/29/17 at 23:19; Stop 10/29/17 at 23:20; Status DC Sodium Chloride (NS Flush) 2 ml UNSCH PRN IV FLUSH FLUSH AFTER USING IV ACCESS ; Start 10/30/17 at 00:15 Sodium Chloride (NS Flush) 2 ml BID IV FLUSH Last administered on 10/31/17 21 :41; Start 10/30/17 at 09:00 Acetaminophen (Tylenol) 650 mg Q4H PRN PO FEVER; Start 10/30/17 at 00:15 Ondansetron HCl (Zofran Inj) 4 mg Q6H PRN IVP NAUSEA OR VOMITING Last administered on 10/30/17 20:31; Start 10/30/17 at 00:15 Heparin Sodium (Porcine) (Heparin Inj) 5,000 units Q12H SQ Last administered on 10/31/17 13:25; Start 10/30/17 at 00:15 Naloxone HCl (Narcan Inj) 0.4 mg UNSCH PRN IV PUSH SEE LABEL COMMENTS; Start 10/30/17 at 00:15 Senna/Docusate Sodium (Damari-Colace) 1 tab BID PO ; Start 10/30/17 at 09:00 Magnesium Hydroxide (Milk Of Magnesia Liq) 30 ml Q12H PRN PO Mild constipation ; Start 10/30/17 at 00:15 Sennosides (Senokot) 17.2 mg Q12H PRN PO Moderate constipation; Start 10/30/17 at 00:15 Bisacodyl (Dulcolax Supp) 10 mg DAILY PRN RECTAL SEVERE CONSITIPATION/ IF NPO; Start 10/30/17 at 00:15 Lactulose (Lactulose Liq) 30 ml DAILY PRN PO SEVERE CONSITIPATION/ IF PO; Start 10/30/17 at 00:15 Pharmacy Profile Note 0 ml @ 0 mls/hr UNSCH OTHER ; Start 10/30/17 at 00:15 Vancomycin HCl 800 mg/Sodium Chloride 258 ml @ 250 mls/hr DAILY@0200 IV Last administered on 10/30/17 02:43; Start 10/30/17 at 02:00; Stop 10/30/17 at 06:00 ; Status DC Piperacillin Sod/ Tazobactam Sod 50 ml @ 100 mls/hr Q6H IV Last administered on 10/30/17 02:43; Start 10/30/17 at 01:30; Stop 10/30/17 at 07:31; Status DC Piperacillin Sod/ Tazobactam Sod 50 ml @ 100 mls/hr Q6H IV Last administered on 10/30/17 08:30; Start 10/30/17 at 09:00; Stop 10/30/17 at 13:56; Status DC Acetaminophen/ Hydrocodone Bitart (Grulla 5-325 Mg) 1 tab Q4H PRN PO PAIN 6-10 ; Start 10/30/17 at 08:45; Status UNV Oxycodone/ Acetaminophen (Percocet 5-325 Mg) 1 tab Q4H PRN PO PAIN SCALE 6 TO 10 Last administered on 10/30/17 14:29; Start 10/30/17 at 10:00; Stop 10/30/17 at 19:43; Status DC Miscellaneous Information SPECIFIC LAB TO BE DRAWN:VANCO DATE TO... ONCE ONCE .XX Last administered on 10/31/17 14:35; Start 10/31/17 at 14:45; Stop 09/07 at 14:46; Status DC Vancomycin HCl 750 mg/Sodium Chloride 257.5 ml @ 250 mls/hr Q12H IV Last administered on 11/01/17 01:53; Start 10/30/17 at 15:00 Cefepime HCl 2000 mg/Sodium Chloride 100 ml @ 200 mls/hr Q8H IV Last administered on 11/01/17 05:05; Start 10/30/17 at 14:00 Oxycodone/ Acetaminophen (Percocet 5-325 Mg) 1 tab Q4H PRN PO PAIN SCALE 1 TO 5; Start 10/30/17 at 19:45 Oxycodone/ Acetaminophen (Percocet 5-325 Mg) 2 tab Q4H PRN PO PAIN SCALE 6 TO 10 Last administered on 11/01/17 04:54; Start 10/30/17 at 19:45 Morphine Sulfate (Morphine Inj) 2 mg Q4H PRN IV BREAKTHROUGH PAIN Last administered on 11/01/17 06:09; Start 10/30/17 at 20:00 Miscellaneous Information SPECIFIC LAB TO BE DRAWN:VANCO DATE TO... 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 ESR 69- RF negative- AMIE / HIV screen pending- echo with EF45% and no endocarditis- will follow the serology. vascular surgery consult appreciated; and no surgical interventions at this time. previously d/w ; GI consulted for questionable history of Crohn's disease- will consider steroid trial after the GI evaluation/ work-up. ( [facility] records reviewed.) - hepatitis C- f/u as outpatient. -DVT prophylaxis with subq Heparin. Discharge Planning not ready for discharge yet- pending GI evaluation/ work-up. Brandin Davis MD Nov 01, 2017 07:37
[2017-11-01 08:00] VITALS: BP 144/91; PULSE 100; RESP 20; TEMP 98.3; O2SAT 99
[2017-11-01 08:08] LABS: AUTOMATED NEUTROPHIL # 7.4 TH/MM3 (1.8-7.7); BASOPHIL # 0.1 TH/MM3 (0-0.2); BASOPHIL % 0.6 % (0.0-2.0); EOSINOPHIL # 0.1 TH/MM3 (0-0.4); EOSINOPHIL % 0.7 % (0.0-4.0); HEMATOCRIT 36.7 % (35.0-46.0); HEMO FLAGS DIFF FINAL; LYMPH % 12.5 % (9.0-44.0); LYMPHOCYTE # 1.1 TH/MM3 (1.0-4.8); MEAN CORPUSCULAR HEMOGLOBIN 27.9 PG (27.0-34.0); MONO % 4.5 % (0.0-8.0); NEUT % 81.7 % (16.0-70.0); PLATELET COUNT 322 TH/MM3 (150-450); RED BLOOD COUNT 4.48 MIL/MM3 (4.00-5.30); RED CELL DISTRIBUTION WIDTH 16.1 % (11.6-17.2); WHITE BLOOD COUNT 9.1 TH/MM3 (4.0-11.0)
[2017-11-01] MEDS: SODIUM CHLORIDE 0.9% FLUSH 10 ML FLUSH IV FLUSH SCH ×2 (08:43→20:54)
[2017-11-01] MEDS: DOCUSATE SODIUM 50 MG/SENNA 8.6 MG TAB PO SCH ×2 (08:45→20:54)
[2017-11-01 08:46] LABS: ALKALINE PHOSPHATASE 87 U/L (45-117); ALT (GPT) 12 U/L (10-53); ANION GAP 7 MEQ/L (5-15); AST (GOT) 19 U/L (15-37); BLOOD UREA NITROGEN 8 MG/DL (7-18); CHLORIDE 97 MEQ/L (98-107); GLOMERULAR FILTRATION RATE 92 ML/MIN (>89); SODIUM (NA) 131 MEQ/L (136-145); TOTAL BILIRUBIN ADULT 0.3 MG/DL (0.2-1.0)
--- NOTE | 2017-11-01 10:47 | PD.CONS ---
HPI History of Present Illness This is a frail 42 year old who came into the hospital on 10/30/17 with pain, cellulitis, and edema in her lower extremities bilateral. Patient is currently being treated with IV antibiotics and medical management for her lower extremities. Patient has a history of Crohn's disease and hepatitis C which was diagnosed approximately 10-15 years ago according to patient. She has not been on any active treatment for many years. Current symptoms are nausea and vomiting 1 week, which are now resolving with medical treatment; patient has had dark brown diarrhea for the past couple of days at least 2 times a day. Patient has no history that she remembers for EGD/colonoscopy, this does note some symptoms of her sclera being dry and icteric. Patient has had many stressors in her life over the past year which include losing a male partner, she also notes a 25 pound weight loss, decreased appetite and fraility. Patient states she had a significant history of drug usage predominantly cocaine and currently patient tested positive for her current hospital stay. She states that she had been clean for several years, up until this past week. Gastroenterology has been consult could to assist with her history of Crohn's disease and hepatitis C. (Jazmine Schroeder) PFSH Past Medical History Crohn's disease. hepatitis C. Illicit drug usage predominantly cocaine Fraility was weight loss Diarrhea Nausea vomiting Anorexia Stressors Past Surgical History hysterectomy. (Jazmine Schroeder) Coded Allergies: codeine (Verified Allergy, Severe, 10/29/17) ketorolac (Verified Allergy, Severe, 10/29/17) penicillin G (Verified Allergy, Intermediate, Rash, 10/30/17) Medications Administered Medications Medications (Trade) Dose Ordered Sig/Malgorzata Route PRN Reason Start Time Stop Time Status Last Admin Dose Admin Sodium Chloride (NS Flush) 2 ml BID IV FLUSH 10/30/17 09:00 11/01/17 08:43 Ondansetron HCl (Zofran Inj) 4 mg Q6H PRN IVP NAUSEA OR VOMITING 10/30/17 00:15 10/30/17 20:31 Heparin Sodium (Porcine) (Heparin Inj) 5,000 units Q12H SQ 10/30/17 00:15 10/31/17 13:25 Vancomycin HCl 750 mg/Sodium Chloride 257.5 ml @ 250 mls/hr Q12H IV 10/30/17 15:00 11/01/17 01:53 Cefepime HCl 2000 mg/Sodium Chloride 100 ml @ 200 mls/hr Q8H IV 10/30/17 14:00 11/01/17 05:05 Oxycodone/ Acetaminophen (Percocet 5-325 Mg) 2 tab Q4H PRN PO PAIN SCALE 6 TO 10 10/30/17 19:45 11/01/17 08:44 Morphine Sulfate (Morphine Inj) 2 mg Q4H PRN IV BREAKTHROUGH PAIN 10/30/17 20:00 11/01/17 10:10 Family History not relevant to this presentation. Social History smokes half a pack a day. doesn't drink. Smoked crack cocaine approximately a week ago (Jazmine Schroeder) Review of Systems Constitutional: COMPLAINS OF: Fatigue, Weight loss Gastrointestinal: COMPLAINS OF: Diarrhea, Nausea, Vomiting Musculoskeletal: COMPLAINS OF: Stiffness Integumentary: COMPLAINS OF: Rash (cellulitis lower extremities with unhealed wounds) (Jazmine Schroeder) GI Exam Vitals I&O Vital Signs Date Time Temp Pulse Resp B/P (MAP) Pulse Ox O2 Delivery O2 Flow Rate FiO2 11/01/17 08:00 98.3 100 20 144/91 (108) 99 11/01/17 05:09 99.3 115 20 139/98 (112) 97 11/01/17 00:00 99.9 103 21 131/94 (106) 96 10/31/17 19:52 98.6 119 18 134/85 (101) 96 10/31/17 16:53 97.4 98 18 111/80 (90) 98 10/31/17 12:19 97.9 118 18 143/102 (116) 99 I/O 10/31/17 10/31/17 10/31/17 11/01/17 11/01/17 11/01/17 07:00 15:00 23:00 07:00 15:00 23:00 Intake Total 590 ml 100 ml 837.5 ml 350 ml Balance 590 ml 100 ml 837.5 ml 350 ml Intake Oral 240 ml 480 ml IV Total 350 ml 100 ml 357.5 ml 350 ml # Voids 4 1 3 Imaging Last Impressions Lower Extremity CT 10/29/17 0000 Signed Impressions: Service Date/Time: Sunday, October 29, 2017 23:14 - CONCLUSION: Mild diffuse subcutaneous edema as above. No abscess. Juan Walker MD Laboratory Test 10/31/17 14:40 10/31/17 16:35 11/01/17 07:00 Erythrocyte Sedimentation Rate 69 mm/hr C-Reactive Protein 2.66 MG/DL Vancomycin Level Trough 5.4 MCG/ML Complement C3 139 MG/DL Complement C4 17 MG/DL Urine Color YELLOW Urine Turbidity HAZY Urine pH 6.0 Urine Specific [place] 1.033 Urine Protein 30 mg/dL Urine Glucose (UA) NEG mg/dL Urine Ketones TRACE mg/dL Urine Occult Blood MOD Urine Nitrite NEG Urine Bilirubin NEG Urine Urobilinogen LESS THAN 2.0 MG/DL Urine Leukocyte Esterase LARGE Urine RBC 32 /hpf Urine WBC 53 /hpf Urine Squamous Epithelial Cells 7 /hpf Urine Bacteria RARE /hpf Urine Mucus FEW /lpf Microscopic Urinalysis Comment CULTURE INDICATED White Blood Count 9.1 TH/MM3 Red Blood Count 4.48 MIL/MM3 Hemoglobin 12.5 GM/DL Hematocrit 36.7 % Mean Corpuscular Volume 82.0 FL Mean Corpuscular Hemoglobin 27.9 PG Mean Corpuscular Hemoglobin Concent 34.0 % Red Cell Distribution Width 16.1 % Platelet Count 322 TH/MM3 Mean Platelet Volume 8.8 FL Neutrophils (%) (Auto) 81.7 % Lymphocytes (%) (Auto) 12.5 % Monocytes (%) (Auto) 4.5 % Eosinophils (%) (Auto) 0.7 % Basophils (%) (Auto) 0.6 % Neutrophils # (Auto) 7.4 TH/MM3 Lymphocytes # (Auto) 1.1 TH/MM3 Monocytes # (Auto) 0.4 TH/MM3 Eosinophils # (Auto) 0.1 TH/MM3 Basophils # (Auto) 0.1 TH/MM3 CBC Comment DIFF FINAL Differential Comment Blood Urea Nitrogen 8 MG/DL Creatinine 0.69 MG/DL Random Glucose 102 MG/DL Total Protein 7.9 GM/DL Albumin 2.8 GM/DL Calcium Level 9.1 MG/DL Alkaline Phosphatase 87 U/L Aspartate Amino Transf (AST/SGOT) 19 U/L Alanine Aminotransferase (ALT/SGPT) 12 U/L Total Bilirubin 0.3 MG/DL Sodium Level 131 MEQ/L Potassium Level 4.0 MEQ/L Chloride Level 97 MEQ/L Carbon Dioxide Level 27.0 MEQ/L Anion Gap 7 MEQ/L Estimat Glomerular Filtration Rate 92 ML/MIN Date/Time Source Procedure Growth Status 10/29/17 21:50 Blood Peripheral Aerobic Blood Culture - Preliminary NO GROWTH IN 2 DAYS Resulted 10/29/17 21:50 Blood Peripheral Anaerobic Blood Culture - Preliminary NO GROWTH IN 2 DAYS Resulted 10/31/17 16:35 Urine Clean Catch Urine Culture Pending Received Physical Examination HEENT: Pupils round and reactive to light; normocephalic; atraumatic; pale Throat is dry, reddened tongue NECK: Neck is supple, no JVD, no lymphadenopathy. CHEST: Chest is clear to auscultation and percussion. CARDIAC: Mild tachycardia, Regular rate and rhythm with no murmur gallop or rubs. ABDOMEN: Soft, flat, nondistended, nontender; no hepatosplenomegaly; bowel sounds are present in all four quadrants. EXTREMITIES: No clubbing, cyanosis, or edema., Cellulitis with wounds bilateral lower extremities SKIN: Thin skin turgor, left upper arm scarring; no rash; no jaundice. PENSION ADMINISTRATOR: No focal deficits; alert and oriented times three. (Jazmine Schroeder) Assessment and Plan Assessment: (1) Cocaine abuse ICD Codes: F14.10 - Cocaine abuse, uncomplicated (2) Nausea & vomiting ICD Codes: R11.2 - Nausea with vomiting, unspecified (3) Diarrhea ICD Codes: R19.7 - Diarrhea, unspecified (4) Hepatitis C ICD Codes: B19.20 - Unspecified viral hepatitis C without hepatic coma (5) Crohn's disease ICD Codes: K50.90 - Crohn's disease, unspecified, without complications Plan Crohn's disease, patient has labs that are pending which includes AMIE, still having diarrhea stools worse over the past 2 days, denies any obvious blood, no history of colonoscopy that she remembers Plan CT of the abdomen for initial workup, plan for colonoscopy in the a.m.. Be nothing by mouth at midnight, currently we'll maintain nothing by mouth for CT abdomen today, GoLYTELY prep at 1600. We will add clear liquids this p.m. for her diet., Elevated CRP level noted from admission 2.66 Nausea and vomiting, weight loss, Medical management, EGD scheduled for a.m. with colonoscopy. After testing completed this morning patient can have clear liquids. Protonix 40 mg IV daily Diarrhea Plan stool studies for ova and parasite, culture, C. difficile, H pylori, lesli After testing and workup complete will decide on any acute changes in her plan of care Patient was seen per myself and Dr. Juárez, this note was done on his behalf (Jazmine Schroeder) Assessment: (1) Cocaine abuse ICD Codes: F14.10 - Cocaine abuse, uncomplicated (2) Nausea & vomiting ICD Codes: R11.2 - Nausea with vomiting, unspecified (3) Diarrhea ICD Codes: R19.7 - Diarrhea, unspecified (4) Hepatitis C ICD Codes: B19.20 - Unspecified viral hepatitis C without hepatic coma (5) Crohn's disease ICD Codes: K50.90 - Crohn's disease, unspecified, without complications Physician Comments Patient seen and examined Agree with above Continue with current supportive care Monitor labs Await stool studies, C. difficile negative so far Plan for an EGD and a colonoscopy Await CT of the abdomen Patient advised to stop substance abuse (Nilay Juárez MD) Problem Qualifiers (1) Hepatitis C: Qualified Codes: B18.2 - Chronic viral hepatitis C Jazmine Schroeder Nov 01, 2017 10:47 Nilay Juárez MD Nov 01, 2017 20:53
[2017-11-01 11:49] VITALS: BP 134/90; PULSE 103; RESP 20; TEMP 98.1; O2SAT 97
[2017-11-01] MEDS ORDERED: DIATRIZOATE MEGLUM/DIATRIZOATE SOD 9 ML CUP PO ONE (12:00)
[2017-11-01] MEDS: HEPARIN SODIUM - SQ 10,000 UNITS/ML VIAL SQ SCH ×2 (12:21→23:23)
[2017-11-01] MEDS ORDERED: PHARMACY ORDERED LAB ONE (13:45)
--- NOTE | 2017-11-01 15:59 | PD.WCN.NOT ---
Wound Consult Description: Received consult from Doctor Esau for wound management of Bilateral LE Communicated with: RN José Luis lucio and Doctor Gareth Recommendation: 1. Please consult podiatry 2.Please paint all blisters, wounds covered by intact discolored purple skin and intact eschar to BLE with povidone-iodine BID and leave all areas open to air, until seen by podiatry Additional Information: Patient seen on for evaluation of bilateral LE wound management. Patient already seen by Vascular surgery. No dressings or surgery was recommended by Vascular surgeon.Patient is noted with areas of intact purple discolored skin that is not open, and large bulla that is partially deflated to L heel. Entire area from L lower leg to L heel measures ~21cm x ~18cm . R austin is noted with diffuse areas of eschar from Anterior R austin extending to R heel. Measuring 16 cm x 19cm x eschar. Painted all intact discolored skin, bulla and areas of intact eschar with povidone -iodine and left areas open to air.Recommendations noted above Kady Chaparro [facility] Nov 01, 2017 15:59
[2017-11-01] MEDS ORDERED: PEG (High)/E-LYTE SOLN 4000 ML BTL PO ONE (16:00)
[2017-11-01 16:58] VITALS: BP 129/85; PULSE 104; RESP 20; TEMP 98.9; O2SAT 96
[2017-11-01] MEDS ORDERED: VANCOMYCIN INJ 750 MG in SODIUM CHLOR 0.9% 250 ML INJ 250 ML IV SCH (17:00)
--- NOTE | 2017-11-01 18:10 | HHI.IDPN ---
Note Infectious Disease Note ID Coverage: Notes reviewed. Patient tells me that she left [facility] because she was not being treated with respect there. She has large purpuric patches with surrounding erythema at the legs at large blister at the left heel, and several other purpuric small patches at the extremities and behind the ears. Afebrile. 2D ECHO without signs of endocarditis. ROS - General Review of Systems ROS Limitations: Poor Historian PFSH Past Family Social History Allergies: Coded Allergies: codeine (Verified Allergy, Severe, 10/29/17) ketorolac (Verified Allergy, Severe, 10/29/17) penicillin G (Verified Allergy, Intermediate, Rash, 10/30/17) Past Medical History Crohn's disease per history Hepatitis C treatment melissa Recurrent cellulitis Past Surgical History Appendectomy Hysterectomy ? Some bowel surgery for Crohn's Reported Medications Reported Meds & Active Scripts Active No Active Prescriptions or Reported Medications Active Ordered Medications Current Medications Medications (Trade) Dose Ordered Sig/Malgorzata Route PRN Reason Start Time Stop Time Status Last Admin Dose Admin Sodium Chloride (NS Flush) 2 ml UNSCH PRN IV FLUSH FLUSH AFTER USING IV ACCESS 10/30/17 00:15 Sodium Chloride (NS Flush) 2 ml BID IV FLUSH 10/30/17 09:00 11/01/17 08:43 Acetaminophen (Tylenol) 650 mg Q4H PRN PO FEVER 10/30/17 00:15 Ondansetron HCl (Zofran Inj) 4 mg Q6H PRN IVP NAUSEA OR VOMITING 10/30/17 00:15 10/30/17 20:31 Heparin Sodium (Porcine) (Heparin Inj) 5,000 units Q12H SQ 10/30/17 00:15 10/31/17 13:25 Naloxone HCl (Narcan Inj) 0.4 mg UNSCH PRN IV PUSH SEE LABEL COMMENTS 10/30/17 00:15 Senna/Docusate Sodium (Damari-Colace) 1 tab BID PO 10/30/17 09:00 Magnesium Hydroxide (Milk Of Magnesia Liq) 30 ml Q12H PRN PO Mild constipation 10/30/17 00:15 Sennosides (Senokot) 17.2 mg Q12H PRN PO Moderate constipation 10/30/17 00:15 Bisacodyl (Dulcolax Supp) 10 mg DAILY PRN RECTAL SEVERE CONSITIPATION/ IF NPO 10/30/17 00:15 Lactulose (Lactulose Liq) 30 ml DAILY PRN PO SEVERE CONSITIPATION/ IF PO 10/30/17 00:15 Pharmacy Profile Note 0 ml @ 0 mls/hr UNSCH OTHER 10/30/17 00:15 Cefepime HCl 2000 mg/Sodium Chloride 100 ml @ 200 mls/hr Q8H IV 10/30/17 14:00 11/01/17 12:21 Oxycodone/ Acetaminophen (Percocet 5-325 Mg) 1 tab Q4H PRN PO PAIN SCALE 1 TO 5 10/30/17 19:45 Oxycodone/ Acetaminophen (Percocet 5-325 Mg) 2 tab Q4H PRN PO PAIN SCALE 6 TO 10 10/30/17 19:45 11/01/17 17:04 Morphine Sulfate (Morphine Inj) 2 mg Q4H PRN IV BREAKTHROUGH PAIN 10/30/17 20:00 11/01/17 13:57 Vancomycin HCl 750 mg/Sodium Chloride 257.5 ml @ 250 mls/hr Q8H IV 11/02/17 00:00 Miscellaneous Information SPECIFIC LAB TO BE ... ONCE ONCE .XX 11/02/17 15:45 11/02/17 15:46 Social History per record. reports her 1 year back. She denies IVDA but records indicate she admitted to RN at that hospital "used synthetic IV drugs" Drug screen positive for Cocaine. Smokes 1 ppd or more for many years. Does not want to quit. Counseled for 15 mins. Denies alcohol. Physical Exam OBJECTIVE: Vital Signs Date Time Temp Pulse Resp B/P (MAP) Pulse Ox O2 Delivery O2 Flow Rate FiO2 11/01/17 16:58 98.9 104 20 129/85 (100) 96 11/01/17 11:49 98.1 103 20 134/90 (105) 97 11/01/17 08:00 98.3 100 20 144/91 (108) 99 11/01/17 05:09 99.3 115 20 139/98 (112) 97 11/01/17 00:00 99.9 103 21 131/94 (106) 96 10/31/17 19:52 98.6 119 18 134/85 (101) 96 Laboratory Tests Test 10/31/17 14:40 11/01/17 07:00 Erythrocyte Sedimentation Rate 69 mm/hr White Blood Count 9.1 TH/MM3 Red Blood Count 4.48 MIL/MM3 Hemoglobin 12.5 GM/DL Hematocrit 36.7 % Mean Corpuscular Volume 82.0 FL Mean Corpuscular Hemoglobin 27.9 PG Mean Corpuscular Hemoglobin Concent 34.0 % Red Cell Distribution Width 16.1 % Platelet Count 322 TH/MM3 Mean Platelet Volume 8.8 FL Neutrophils (%) (Auto) 81.7 % Lymphocytes (%) (Auto) 12.5 % Monocytes (%) (Auto) 4.5 % Eosinophils (%) (Auto) 0.7 % Basophils (%) (Auto) 0.6 % Neutrophils # (Auto) 7.4 TH/MM3 Lymphocytes # (Auto) 1.1 TH/MM3 Monocytes # (Auto) 0.4 TH/MM3 Eosinophils # (Auto) 0.1 TH/MM3 Basophils # (Auto) 0.1 TH/MM3 CBC Comment DIFF FINAL Differential Comment Laboratory Tests Test 10/31/17 14:40 11/01/17 07:00 C-Reactive Protein 2.66 MG/DL Blood Urea Nitrogen 8 MG/DL Creatinine 0.69 MG/DL Random Glucose 102 MG/DL Total Protein 7.9 GM/DL Albumin 2.8 GM/DL Calcium Level 9.1 MG/DL Alkaline Phosphatase 87 U/L Aspartate Amino Transf (AST/SGOT) 19 U/L Alanine Aminotransferase (ALT/SGPT) 12 U/L Total Bilirubin 0.3 MG/DL Sodium Level 131 MEQ/L Potassium Level 4.0 MEQ/L Chloride Level 97 MEQ/L Carbon Dioxide Level 27.0 MEQ/L Anion Gap 7 MEQ/L Estimat Glomerular Filtration Rate 92 ML/MIN Microbiology Date/Time Source Procedure Growth Status 10/29/17 21:50 Blood Peripheral Aerobic Blood Culture - Preliminary NO GROWTH IN 3 DAYS Resulted 10/29/17 21:50 Blood Peripheral Anaerobic Blood Culture - Preliminary NO GROWTH IN 3 DAYS Resulted 10/29/17 21:35 Blood Peripheral Aerobic Blood Culture - Preliminary NO GROWTH IN 3 DAYS Resulted 10/29/17 21:35 Blood Peripheral Anaerobic Blood Culture - Preliminary NO GROWTH IN 3 DAYS Resulted 10/31/17 16:35 Urine Clean Catch Urine Culture - Preliminary NO GROWTH IN 24 HOURS. Resulted GENERAL: Patient is in no acute distress. HEENT: EOMI, No icterus. NECK: Supple. LUNGS: Clear breath sounds. CARDIAC: Regular rate and rhythm ABDOMEN: Soft, non tender. EXTREMITIES: No CCE. large purpuric patches with surrounding erythema at the legs at large blister at the left heel, and several other purpuric small patches at the extremities and the ears. SKIN: No diffuse rash. Assessment and Plan Assessment and Plan Assessment and Plan Cellulitis bilateral LE associated vasculitic changes. Heel with vasculitis changes. 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 Possible Endocarditis but these lesions don't look like septic emboli as they are on the ears bilaterally. Hepatitis C (can cause cryoglobulinemia) IVDA per records at Blood cultures pending from need to be followed. Penicillin allergy: rash, N/V. Recs Continue Cefepime IV Watch for allergic reaction and call if airway issues or rash. Already switching antibiotic but the Penicillin will likely be still in her body till eliminated for another 24 hours. Continue Vanco IV (target 10-15) Vascular surgery consult (vasculitis) Vasculitis workup: AMIE, SLE, RA, Cryoglobulinemia (cocaine, synthetic drugs IV, Hep C induced cryoglobulinemia) Check 2 D ECHO to r/o endocarditis. Follow blood cultures from [facility]. Sean Julien MD Nov 01, 2017 18:10
[2017-11-01 20:00] VITALS: BP 143/96; PULSE 128; RESP 18; TEMP 100.8; O2SAT 98
[2017-11-01 20:07] LABS: C. DIFF EPI 027 PRESUMPTIVE NEGATIVE (NEGATIVE)
[2017-11-01] MEDS ORDERED: IOHEXOL 350 MG/ML 10 ML VIAL (for RAD DIAG) IVCONTRAST ONE (21:18)
--- NOTE | 2017-11-01 21:46 | RADRPT ---
EXAM DATE/TIME: 11/01/2017 21:16 [facility] COMPARISON: No previous studies available for comparison. INDICATIONS : Abdomen pain. IV CONTRAST: 75 cc Omnipaque 350 (iohexol) IV ORAL CONTRAST: Prescribed oral contrast ingested. RADIATION DOSE: 5.15 CTDIvol (mGy) MEDICAL HISTORY : Cirrhosis. Hepatitis C. carcinoma; cervical. SURGICAL HISTORY : Hysterectomy. ENCOUNTER: Initial ACUITY: 1 day PAIN SCALE: 5/10 LOCATION: Bilateral abdomen TECHNIQUE: Volumetric scanning of the abdomen and pelvis was performed. Using automated exposure control and ad justment of the mA and/or kV according to patient size, radiation dose was kept as low as reasonably achievable to obtain optimal diagnostic quality images. DICOM format image data is available electro nically for review and comparison. FINDINGS: LOWER LUNGS: The visualized lower lungs are clear. LIVER: Homogeneous density without lesion. There is no dilation of the biliary tree. No calcified gallston es. SPLEEN: Normal size without lesion. PANCREAS: Within normal limits. KIDNEYS: Normal in size and shape. There is no mass, stone or hydronephrosis. ADRENAL GLANDS: Within normal limits. VASCULAR: There is no aortic aneurysm. BOWEL/MESENTERY: The stomach, small bowel, and colon demonstrate no acute abnormality. There is no free intraperitone al air or fluid. ABDOMINAL WALL: Within normal limits. RETROPERITONEUM: There is no lymphadenopathy. BLADDER: No wall thickening or mass. REPRODUCTIVE: Within normal limits. INGUINAL: There is no lymphadenopathy or hernia. MUSCULOSKELETAL: Within normal limits for patient age. CONCLUSION: 1. No acute findings on abdomen and pelvic CT. Kevin Wells MD on November 01, 2017 at 21:40 Board Certified Radiologist. This report was verified electronically.
--- NOTE | 2017-11-01 23:51 | PD.CONS ---
History of Present Illness Service Foot and Ankle Surgery/Podiatry Consult Requested By Reason for Consult Bilateral ischemic ulcers Primary Care Physician No Primary Care Physician Diagnoses: History of Present Illness is a 42 y/o female with PMHx significant for recurrent cellulitis, Hepatitis C, reported history of IVDA per [facility] records, reports IV drug use about 15-20 years ago but denies current IV drug use. Patient was admitted for treatment of severe sepsis at [facility] however she left AMA because she did not like how she was being treated. She had extensive purpura involving bilateral lower extremities and behind both ears. Per admitting physician she reportedly was positive for cocaine and also had injected a synthetic IV illicit drug. She states the lesions to her b/l are very painful. She reports multiple lesions to upper and lower extremities in the past but this is the worst she has seen it. Patient denies any N,V,F,Ch at this time. States the blister to her left LE started first and it has progressively worsened. Review of Systems Constitutional: COMPLAINS OF: Fatigue, Weight loss Endocrine: COMPLAINS OF: Heat/cold intolerance Eyes: DENIES: Blurred vision Ears, nose, mouth, throat: COMPLAINS OF: Ear Pain, DENIES: Vertigo Respiratory: DENIES: Cough Cardiovascular: DENIES: Chest pain Gastrointestinal: COMPLAINS OF: Abdominal pain Musculoskeletal: COMPLAINS OF: Muscle aches Hematologic/lymphatic: COMPLAINS OF: Bruising Neurologic: DENIES: Abnormal gait Psychiatric: DENIES: Confusion Past Family Social History Allergies: Coded Allergies: codeine (Verified Allergy, Severe, 10/29/17) ketorolac (Verified Allergy, Severe, 10/29/17) penicillin G (Verified Allergy, Intermediate, Rash, 10/30/17) Past Medical History Hep C and Crohn's Disease Active Ordered Medications Current Medications Medications (Trade) Dose Ordered Sig/Malgorzata Route Start Time Stop Time Status Last Admin (NS Flush) 2 ml UNSCH PRN IV FLUSH 10/30/17 00:15 (NS Flush) 2 ml BID IV FLUSH 10/30/17 09:00 11/01/17 20:54 (Tylenol) 650 mg Q4H PRN PO 10/30/17 00:15 (Zofran Inj) 4 mg Q6H PRN IVP 10/30/17 00:15 10/30/17 20:31 (Heparin Inj) 5,000 units Q12H SQ 10/30/17 00:15 10/31/17 13:25 (Narcan Inj) 0.4 mg UNSCH PRN IV PUSH 10/30/17 00:15 (Damari-Colace) 1 tab BID PO 10/30/17 09:00 (Milk Of Magnesia Liq) 30 ml Q12H PRN PO 10/30/17 00:15 (Senokot) 17.2 mg Q12H PRN PO 10/30/17 00:15 (Dulcolax Supp) 10 mg DAILY PRN RECTAL 10/30/17 00:15 (Lactulose Liq) 30 ml DAILY PRN PO 10/30/17 00:15 Pharmacy Profile Note 0 ml @ 0 mls/hr UNSCH OTHER 10/30/17 00:15 Cefepime HCl 2000 mg/Sodium Chloride 100 ml @ 200 mls/hr Q8H IV 10/30/17 14:00 11/01/17 12:21 (Percocet 5-325 Mg) 1 tab Q4H PRN PO 10/30/17 19:45 (Percocet 5-325 Mg) 2 tab Q4H PRN PO 10/30/17 19:45 11/01/17 20:53 (Morphine Inj) 2 mg Q4H PRN IV 10/30/17 20:00 11/01/17 17:58 Vancomycin HCl 750 mg/Sodium Chloride 257.5 ml @ 250 mls/hr Q8H IV 11/02/17 00:00 Miscellaneous Information SPECIFIC LAB TO BE SURY... ONCE ONCE .XX 11/02/17 15:45 11/02/17 15:46 Social History Reported use of IV drugs in the past Physical Exam Vital Signs Vital Signs Date Time Temp Pulse Resp B/P (MAP) Pulse Ox O2 Delivery O2 Flow Rate FiO2 11/01/17 16:58 98.9 104 20 129/85 (100) 96 11/01/17 11:49 98.1 103 20 134/90 (105) 97 11/01/17 08:00 98.3 100 20 144/91 (108) 99 11/01/17 05:09 99.3 115 20 139/98 (112) 97 11/01/17 00:00 99.9 103 21 131/94 (106) 96 Physical Exam GENERAL: In no apparent distress. SKIN: Cool and dry. Ecchymosis, bilateral LE ischemic lesions. HEAD: Atraumatic. EYES: Pupils equal round and reactive. ENT: . Airway patent. RESPIRATORY: No labored breathing. MUSCULOSKELETAL: Pain on palpation to bilateral LE. NEUROLOGICAL: Awake and alert. Normal Speech. Lower Extremity Physical Exam: Vasc: DP/PT 2/4 bilaterally. SOFTWARE MANAGER under 3 secs to bilateral LE. No edema noted to bilateral LE. Neuro: Gross sensation intact. No hyperalgesia noted to bilateral LE. Derm: Bilateral LE purpura with ischemic ulcers encompassion over 50% of bilateral LE. Eschars noted with no clear final demarcations noted to lesions. Mild damari eschar erythema noted. No drainage noted to bilateral LE lesions. Left lateral ankle blood blister with fluctuant in nature. Upon puncture with 18 ' gauge needle sero-sanginous drainage noted, no purulent drainage noted. MSK: Pain on palpation to bilateral LE. ROM WNL to bilateral ankles. No pain on ROM to bilateral ankles. Laboratory Laboratory Tests Test 11/01/17 07:00 11/01/17 15:15 11/01/17 17:30 White Blood Count 9.1 Red Blood Count 4.48 Hemoglobin 12.5 Hematocrit 36.7 Mean Corpuscular Volume 82.0 Mean Corpuscular Hemoglobin 27.9 Mean Corpuscular Hemoglobin Concent 34.0 Red Cell Distribution Width 16.1 Platelet Count 322 Mean Platelet Volume 8.8 Neutrophils (%) (Auto) 81.7 Lymphocytes (%) (Auto) 12.5 Monocytes (%) (Auto) 4.5 Eosinophils (%) (Auto) 0.7 Basophils (%) (Auto) 0.6 Neutrophils # (Auto) 7.4 Lymphocytes # (Auto) 1.1 Monocytes # (Auto) 0.4 Eosinophils # (Auto) 0.1 Basophils # (Auto) 0.1 CBC Comment DIFF FINAL Differential Comment Blood Urea Nitrogen 8 Creatinine 0.69 Random Glucose 102 Total Protein 7.9 Albumin 2.8 Calcium Level 9.1 Alkaline Phosphatase 87 Aspartate Amino Transf (AST/SGOT) 19 Alanine Aminotransferase (ALT/SGPT) 12 Total Bilirubin 0.3 Sodium Level 131 Potassium Level 4.0 Chloride Level 97 Carbon Dioxide Level 27.0 Anion Gap 7 Estimat Glomerular Filtration Rate 92 Vancomycin Level Trough 4.8 Stool C. difficile Toxin (PCR) NEGATIVE Stl C. difficile Toxin Epiderm 027 PRESUMPTIVE NEGATIVE Date/Time Source Procedure Growth Status 10/29/17 21:50 Blood Peripheral Aerobic Blood Culture - Preliminary NO GROWTH IN 3 DAYS Resulted 10/29/17 21:50 Blood Peripheral Anaerobic Blood Culture - Preliminary NO GROWTH IN 3 DAYS Resulted 11/01/17 17:30 Stool Stool Cryptosporidium Exam Pending Received 11/01/17 17:30 Stool Stool Stool Pus (JACOB) Pending Received 11/01/17 17:30 Stool Stool Giardia Antigen (JACOB) Pending Received 10/31/17 16:35 Urine Clean Catch Urine Culture - Preliminary NO GROWTH IN 24 HOURS. Resulted Result Diagram: 11/01/17 0700 11/01/17 0700 Assessment and Plan Assessment and Plan 42 year old female with bilateral ischemic ulcers Patient evaluated and treated with all questions answered Recommend awaiting demarcation before proceeding with enzymatic debridement with Santyl No surgical intervention anticipated at this time Left lateral ankle blister decompressed with 18 gauge need with nurse present, time out performed, oral consent given by patient Dressed left lateral ankle with DSD Will follow patient while in house and monitor progress Xrays to bilateral Steph Vogel DPM Nov 01, 2017 23:51
[2017-11-01] MEDS: ONDANSETRON HCL 4 MG/2 ML VIAL IVP PRN (23:58)
[2017-11-02] VITALS: BP 94/62; PULSE 94; RESP 18; TEMP 98.5; O2SAT 97
[2017-11-02] MEDS: oxyCODONE/ACETAMINOPHEN 5 MG/325 MG TAB PO PRN ×3 (02:54→20:14)
[2017-11-02 04:00] VITALS: BP 109/69; PULSE 92; RESP 18; TEMP 97.9; O2SAT 99
[2017-11-02] MEDS: CEFEPIME INJ 2,000 MG in SODIUM CHLORIDE 0.9% INJ 100 ML IV SCH ×3 (06:08→22:11)
[2017-11-02] MEDS: MORPHINE SULFATE 4 MG/ML INJ IV PRN ×5 (06:11→22:10)
[2017-11-02 08:00] VITALS: BP 124/86; PULSE 92; RESP 18; TEMP 98.4; O2SAT 98
[2017-11-02] MEDS: VANCOMYCIN INJ 750 MG in SODIUM CHLOR 0.9% 250 ML INJ 250 ML IV SCH ×3 (08:00→23:15)
--- NOTE | 2017-11-02 08:16 | HHI.PR ---
Subjective Remarks in no acute distress. febrile last night; T max 100.8. pain to the legs seems to be fairly controlled. awaiting colonoscopy. Objective Vitals Vital Signs Date Time Temp Pulse Resp B/P (MAP) Pulse Ox O2 Delivery O2 Flow Rate FiO2 11/02/17 04:00 97.9 92 18 109/69 (82) 99 11/02/17 00:00 98.5 94 18 94/62 (73) 97 11/01/17 20:00 100.8 128 18 143/96 (112) 98 11/01/17 16:58 98.9 104 20 129/85 (100) 96 11/01/17 11:49 98.1 103 20 134/90 (105) 97 I/O 11/01/17 11/01/17 11/01/17 11/02/17 11/02/17 11/02/17 07:00 15:00 23:00 07:00 15:00 23:00 Intake Total 350 ml Balance 350 ml IV Total 350 ml # Voids 3 Result Diagram: 11/01/17 0700 11/01/17 0700 Imaging Last Impressions Abdomen/Pelvis CT 11/01/17 0000 Signed Impressions: Service Date/Time: Wednesday, November 01, 2017 21:16 - CONCLUSION: 1. No acute findings on abdomen and pelvic CT. Kevin Wells MD Lower Extremity CT 10/29/17 0000 Signed Impressions: Service Date/Time: Sunday, October 29, 2017 23:14 - CONCLUSION: Mild diffuse subcutaneous edema as above. No abscess. Juan Walker MD Objective Remarks GENERAL: This is a well-nourished, well-developed patient, in no apparent distress. CARDIOVASCULAR: Regular rate and regular rhythm without murmurs, gallops, or rubs. RESPIRATORY: Clear to auscultation. Breath sounds equal bilaterally. No wheezes , rales, or rhonchi. GASTROINTESTINAL: Abdomen soft, non-tender, nondistended. Normal, active bowel sounds MUSCULOSKELETAL: swelling of the left foot/leg NEURO: Alert & Oriented x4 to person, place, time, situation. Moves all ext x4 skin; erythema over both lower extremities Procedures decompression of the left ankle blister- Medications and IVs Current Medications Sodium Chloride (NS Flush) 2 ml UNSCH PRN IVF FLUSH AFTER USING IV ACCESS; Start 10/29/17 at 19:45; Stop 10/30/17 at 19:46; Status DC Clindamycin Phosphate 900 mg/ Sodium Chloride 106 ml @ 200 mls/hr ONCE ONCE IV Last administered on 10/29/17 21:56; Start 10/29/17 at 19:45; Stop at 20:16; Status DC Morphine Sulfate (Morphine Inj) 4 mg ONCE ONCE IV PUSH Last administered on 21:56; Start 10/29/17 at 19:45; Stop 10/29/17 at 19:49; Status DC Ondansetron HCl (Zofran Inj) 4 mg ONCE ONCE IV PUSH Last administered on 21:57; Start 10/29/17 at 19:45; Stop 10/29/17 at 19:49; Status DC Iohexol (Omnipaque 350 Inj) 100 ml STK-MED ONCE IVCONTRAST Last administered on 10/29/17 23:19; Start 10/29/17 at 23:19; Stop 10/29/17 at 23:20; Status DC Sodium Chloride (NS Flush) 2 ml UNSCH PRN IV FLUSH FLUSH AFTER USING IV ACCESS ; Start 10/30/17 at 00:15 Sodium Chloride (NS Flush) 2 ml BID IV FLUSH Last administered on 11/01/17 20 :54; Start 10/30/17 at 09:00 Acetaminophen (Tylenol) 650 mg Q4H PRN PO FEVER; Start 10/30/17 at 00:15 Ondansetron HCl (Zofran Inj) 4 mg Q6H PRN IVP NAUSEA OR VOMITING Last administered on 11/01/17 23:58; Start 10/30/17 at 00:15 Heparin Sodium (Porcine) (Heparin Inj) 5,000 units Q12H SQ Last administered on 10/31/17 13:25; Start 10/30/17 at 00:15 Naloxone HCl (Narcan Inj) 0.4 mg UNSCH PRN IV PUSH SEE LABEL COMMENTS; Start 10/30/17 at 00:15 Senna/Docusate Sodium (Damari-Colace) 1 tab BID PO ; Start 10/30/17 at 09:00 Magnesium Hydroxide (Milk Of Magnesia Liq) 30 ml Q12H PRN PO Mild constipation ; Start 10/30/17 at 00:15 Sennosides (Senokot) 17.2 mg Q12H PRN PO Moderate constipation; Start 10/30/17 at 00:15 Bisacodyl (Dulcolax Supp) 10 mg DAILY PRN RECTAL SEVERE CONSITIPATION/ IF NPO; Start 10/30/17 at 00:15 Lactulose (Lactulose Liq) 30 ml DAILY PRN PO SEVERE CONSITIPATION/ IF PO; Start 10/30/17 at 00:15 Pharmacy Profile Note 0 ml @ 0 mls/hr UNSCH OTHER ; Start 10/30/17 at 00:15 Vancomycin HCl 800 mg/Sodium Chloride 258 ml @ 250 mls/hr DAILY@0200 IV Last administered on 10/30/17 02:43; Start 10/30/17 at 02:00; Stop 10/30/17 at 06:00 ; Status DC Piperacillin Sod/ Tazobactam Sod 50 ml @ 100 mls/hr Q6H IV Last administered on 10/30/17 02:43; Start 10/30/17 at 01:30; Stop 10/30/17 at 07:31; Status DC Piperacillin Sod/ Tazobactam Sod 50 ml @ 100 mls/hr Q6H IV Last administered on 10/30/17 08:30; Start 10/30/17 at 09:00; Stop 10/30/17 at 13:56; Status DC Acetaminophen/ Hydrocodone Bitart (Warren 5-325 Mg) 1 tab Q4H PRN PO PAIN 6-10 ; Start 10/30/17 at 08:45; Status UNV Oxycodone/ Acetaminophen (Percocet 5-325 Mg) 1 tab Q4H PRN PO PAIN SCALE 6 TO 10 Last administered on 10/30/17 14:29; Start 10/30/17 at 10:00; Stop 10/30/17 at 19:43; Status DC Miscellaneous Information SPECIFIC LAB TO BE DRAWN:VANCO DATE TO... ONCE ONCE .XX Last administered on 10/31/17 14:35; Start 10/31/17 at 14:45; Stop 09/07 at 14:46; Status DC Vancomycin HCl 750 mg/Sodium Chloride 257.5 ml @ 250 mls/hr Q12H IV Last administered on 11/01/17 16:00; Start 10/30/17 at 15:00; Stop 11/01/17 at 17: 11; Status DC Cefepime HCl 2000 mg/Sodium Chloride 100 ml @ 200 mls/hr Q8H IV Last administered on 11/02/17 06:08; Start 10/30/17 at 14:00 Oxycodone/ Acetaminophen (Percocet 5-325 Mg) 1 tab Q4H PRN PO PAIN SCALE 1 TO 5; Start 10/30/17 at 19:45 Oxycodone/ Acetaminophen (Percocet 5-325 Mg) 2 tab Q4H PRN PO PAIN SCALE 6 TO 10 Last administered on 11/02/17 02:54; Start 10/30/17 at 19:45 Morphine Sulfate (Morphine Inj) 2 mg Q4H PRN IV BREAKTHROUGH PAIN Last administered on 11/02/17 06:11; Start 10/30/17 at 20:00 Miscellaneous Information SPECIFIC LAB TO BE DRAWN:VANCO DATE TO... ONCE ONCE .XX Last administered on 11/01/17 13:58; Start 11/01/17 at 13:45; Stop 10/08 at 13:46; Status DC Polyethylene Glycol/ Electrolytes (Colyte Liq) 4,000 ml ONCE ONCE PO Last administered on 11/01/17 16:00; Start 11/01/17 at 16:00; Stop 11/01/17 at 16 :01; Status DC Diatrizoate Meglum/ Diatrizoate Sod ( Gastroview Liq) 18 ml ONCE ONCE PO Last administered on 11/01/17 12:21; Start 11/01/17 at 12:00; Stop 11/01/17 at 12:01; Status DC Vancomycin HCl 750 mg/Sodium Chloride 257.5 ml @ 250 mls/hr Q8H IV ; Start 10/08 at 17:00; Stop 11/01/17 at 17:13; Status DC Vancomycin HCl 750 mg/Sodium Chloride 257.5 ml @ 250 mls/hr Q8H IV Last administered on 11/01/17 23:59; Start 11/02/17 at 00:00 Miscellaneous Information SPECIFIC LAB TO BE SURY... ONCE ONCE .XX ; Start 11/07 at 15:45; Stop 11/02/17 at 15:46 Iohexol (Omnipaque 350 Inj) 75 ml STK-MED ONCE IVCONTRAST Last administered on 11/01/17t 21:18; Start 11/01/17 at 21:18; Stop 11/01/17 at 21:19; Status DC A/P Problem List: (1) Cellulitis of leg, right ICD Code: L03.115 - Cellulitis of right lower limb Status: Acute Assessment and Plan A/P - cellulitis of both lower extremities superimposed on vasculitis continue Vanco and Cefepime- blood cultures negative so far. ESR 69- RF negative- AMIE negative / HIV screen negative- echo with EF45% and no endocarditis- will follow the serology. vascular surgery consult appreciated; and no surgical interventions at this time. podiatry consult appreciated- s/p decompression of the left ankle blister. wound care following. previously d/w ; GI consulted for questionable history of Crohn's disease- will consider steroid trial after the GI evaluation/ work-up. awaiting colonoscopy today. - hepatitis C- f/u as outpatient. -DVT prophylaxis with subq Heparin. Discharge Planning not ready for discharge yet- work-up on cellulitis/vasculitis in progress. Brandin Davis MD Nov 02, 2017 08:16
[2017-11-02] MEDS: SODIUM CHLORIDE 0.9% FLUSH 10 ML FLUSH IV FLUSH SCH ×2 (08:25→20:12)
[2017-11-02] MEDS: DOCUSATE SODIUM 50 MG/SENNA 8.6 MG TAB PO SCH ×2 (08:26→20:12)
[2017-11-02] MEDS ORDERED: MORPHINE SULFATE 2 MG/ML INJ IV PUSH ONE (09:00)
--- NOTE | 2017-11-02 09:29 | RADRPT ---
EXAM DATE/TIME: 11/02/2017 08:47 [facility] COMPARISON: No previous studies available for comparison. INDICATIONS : Chronic ulcers. Pain in entire ankle. MEDICAL HISTORY : Cirrhosis. Hepatitis C. carcinoma; cervical SURGICAL HISTORY : Hysterectomy. ENCOUNTER: Subsequent ACUITY: 4 - 6 days PAIN SCORE: 7/10 LOCATION: Right Ankle FINDINGS: Three view exam was performed of the right ankle. The bony structures are in normal alignment. No e vidence of fracture or dislocation. Small probable ulcer in the heel region. No significant soft tiss ue emphysema. The ankle mortise is intact. No radiopaque foreign bodies are seen. Bony mineralizati on is normal. CONCLUSION: 1. Small ulcer in the heel region without significant subcutaneous emphysema, radiopaque foreign body or bony erosive change. Lenny Dee MD on November 02, 2017 at 9:26 Board Certified Radiologist. This report was verified electronically.
--- NOTE | 2017-11-02 09:30 | RADRPT ---
EXAM DATE/TIME: 11/02/2017 08:48 [place] COMPARISON: No previous studies available for comparison. INDICATIONS : Chronic ulcers. Pain in entire ankle. MEDICAL HISTORY : Cirrhosis. Hepatitis C. carcinoma; cervical SURGICAL HISTORY : Hysterectomy. ENCOUNTER: Subsequent ACUITY: 4 - 6 days PAIN SCORE: 7/10 LOCATION: Left Ankle FINDINGS: Three view exam was performed of the left ankle. The bony structures are in normal alignment. No ev idence of fracture, dislocation, or soft tissue swelling. The ankle mortise is intact. No radiopaqu e foreign bodies are seen. Bony mineralization is normal. CONCLUSION: 1. Unremarkable radiographs of the left ankle. Specifically, no subcutaneous emphysema or erosive bon y change. Lenny Dee MD on November 02, 2017 at 9:28 Board Certified Radiologist. This report was verified electronically.
--- NOTE | 2017-11-02 11:10 | HHI.IDPN ---
Note Infectious Disease Note ID Coverage: Patient without complaints. Afebrile. Going for colonoscopy today. 2D ECHO without signs of endocarditis. Past Family Social History Allergies: Coded Allergies: codeine (Verified Allergy, Severe, 10/29/17) ketorolac (Verified Allergy, Severe, 10/29/17) penicillin G (Verified Allergy, Intermediate, Rash, 10/30/17) Past Medical History Crohn's disease per history Hepatitis C treatment melissa Recurrent cellulitis Past Surgical History Appendectomy Hysterectomy ? Some bowel surgery for Crohn's Reported Medications Reported Meds & Active Scripts Active No Active Prescriptions or Reported Medications Active Ordered Medications Current Medications Medications (Trade) Dose Ordered Sig/Malgorzata Route PRN Reason Start Time Stop Time Status Last Admin Dose Admin Sodium Chloride (NS Flush) 2 ml UNSCH PRN IV FLUSH FLUSH AFTER USING IV ACCESS 10/30/17 00:15 Sodium Chloride (NS Flush) 2 ml BID IV FLUSH 10/30/17 09:00 11/01/17 20:54 Acetaminophen (Tylenol) 650 mg Q4H PRN PO FEVER 10/30/17 00:15 Ondansetron HCl (Zofran Inj) 4 mg Q6H PRN IVP NAUSEA OR VOMITING 10/30/17 00:15 11/01/17 23:58 Heparin Sodium (Porcine) (Heparin Inj) 5,000 units Q12H SQ 10/30/17 00:15 10/31/17 13:25 Naloxone HCl (Narcan Inj) 0.4 mg UNSCH PRN IV PUSH SEE LABEL COMMENTS 10/30/17 00:15 Senna/Docusate Sodium (Damari-Colace) 1 tab BID PO 10/30/17 09:00 Magnesium Hydroxide (Milk Of Magnesia Liq) 30 ml Q12H PRN PO Mild constipation 10/30/17 00:15 Sennosides (Senokot) 17.2 mg Q12H PRN PO Moderate constipation 10/30/17 00:15 Bisacodyl (Dulcolax Supp) 10 mg DAILY PRN RECTAL SEVERE CONSITIPATION/ IF NPO 10/30/17 00:15 Lactulose (Lactulose Liq) 30 ml DAILY PRN PO SEVERE CONSITIPATION/ IF PO 10/30/17 00:15 Pharmacy Profile Note 0 ml @ 0 mls/hr UNSCH OTHER 10/30/17 00:15 Cefepime HCl 2000 mg/Sodium Chloride 100 ml @ 200 mls/hr Q8H IV 10/30/17 14:00 11/02/17 06:08 Oxycodone/ Acetaminophen (Percocet 5-325 Mg) 1 tab Q4H PRN PO PAIN SCALE 1 TO 5 10/30/17 19:45 Oxycodone/ Acetaminophen (Percocet 5-325 Mg) 2 tab Q4H PRN PO PAIN SCALE 6 TO 10 10/30/17 19:45 11/02/17 02:54 Morphine Sulfate (Morphine Inj) 2 mg Q4H PRN IV BREAKTHROUGH PAIN 10/30/17 20:00 11/02/17 06:11 Vancomycin HCl 750 mg/Sodium Chloride 257.5 ml @ 250 mls/hr Q8H IV 11/02/17 00:00 11/01/17 23:59 Miscellaneous Information SPECIFIC LAB TO BE ... ONCE ONCE .XX 11/02/17 15:45 11/02/17 15:46 Social History per record. reports her 1 year back. She denies IVDA but records indicate she admitted to RN at that hospital "used synthetic IV drugs" Drug screen positive for Cocaine. Smokes 1 ppd or more for many years. Does not want to quit. Counseled for 15 mins. Denies alcohol. Physical Exam OBJECTIVE: Vital Signs Date Time Temp Pulse Resp B/P (MAP) Pulse Ox O2 Delivery O2 Flow Rate FiO2 11/02/17 08:00 98.4 92 18 124/86 (99) 98 11/02/17 04:00 97.9 92 18 109/69 (82) 99 11/02/17 00:00 98.5 94 18 94/62 (73) 97 11/01/17 20:00 100.8 128 18 143/96 (112) 98 11/01/17 16:58 98.9 104 20 129/85 (100) 96 11/01/17 11:49 98.1 103 20 134/90 (105) 97 Laboratory Tests Test 10/31/17 14:40 11/01/17 07:00 Erythrocyte Sedimentation Rate 69 mm/hr White Blood Count 9.1 TH/MM3 Red Blood Count 4.48 MIL/MM3 Hemoglobin 12.5 GM/DL Hematocrit 36.7 % Mean Corpuscular Volume 82.0 FL Mean Corpuscular Hemoglobin 27.9 PG Mean Corpuscular Hemoglobin Concent 34.0 % Red Cell Distribution Width 16.1 % Platelet Count 322 TH/MM3 Mean Platelet Volume 8.8 FL Neutrophils (%) (Auto) 81.7 % Lymphocytes (%) (Auto) 12.5 % Monocytes (%) (Auto) 4.5 % Eosinophils (%) (Auto) 0.7 % Basophils (%) (Auto) 0.6 % Neutrophils # (Auto) 7.4 TH/MM3 Lymphocytes # (Auto) 1.1 TH/MM3 Monocytes # (Auto) 0.4 TH/MM3 Eosinophils # (Auto) 0.1 TH/MM3 Basophils # (Auto) 0.1 TH/MM3 CBC Comment DIFF FINAL Differential Comment Laboratory Tests Test 10/31/17 14:40 11/01/17 07:00 C-Reactive Protein 2.66 MG/DL Blood Urea Nitrogen 8 MG/DL Creatinine 0.69 MG/DL Random Glucose 102 MG/DL Total Protein 7.9 GM/DL Albumin 2.8 GM/DL Calcium Level 9.1 MG/DL Alkaline Phosphatase 87 U/L Aspartate Amino Transf (AST/SGOT) 19 U/L Alanine Aminotransferase (ALT/SGPT) 12 U/L Total Bilirubin 0.3 MG/DL Sodium Level 131 MEQ/L Potassium Level 4.0 MEQ/L Chloride Level 97 MEQ/L Carbon Dioxide Level 27.0 MEQ/L Anion Gap 7 MEQ/L Estimat Glomerular Filtration Rate 92 ML/MIN Microbiology Date/Time Source Procedure Growth Status 11/01/17 17:30 Stool Stool Cryptosporidium Exam Pending Resulted 11/01/17 17:30 Stool Stool Stool Pus (JACOB) - Final Resulted 11/01/17 17:30 Stool Stool Giardia Antigen (JACOB) Pending Resulted 11/01/17 17:30 Stool Stool Pending Received 10/31/17 16:35 Urine Clean Catch Urine Culture - Final NO GROWTH IN 48 HOURS. Complete GENERAL: Patient is in no acute distress. HEENT: EOMI, No icterus. NECK: Supple. No adenopathy. LUNGS: Clear breath sounds. CARDIAC: Regular rate and rhythm ABDOMEN: Soft, non tender. EXTREMITIES: No CCE. large purpuric patches with surrounding erythema at the legs and large blister at the left heel, and several other purpuric small patches at the extremities and at the left ear. SKIN: No diffuse rash. Assessment and Plan Cellulitis bilateral LE associated vasculitic changes. Heel with vasculitic changes. 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 Possible Endocarditis but these lesions don't look like septic emboli. Hepatitis C (can cause cryoglobulinemia) IVDA per records at Blood cultures pending from need to be followed. Penicillin allergy: rash, N/V. Recs Continue Cefepime IV Watch for allergic reaction and call if airway issues or rash. Already switching antibiotic but the Penicillin will likely be still in her body till eliminated for another 24 hours. Continue Vanco IV (target 10-15) Vascular surgery consult (vasculitis) Vasculitis workup: AMIE, SLE, RA, Cryoglobulinemia (cocaine, synthetic drugs IV, Hep C induced cryoglobulinemia) Follow blood cultures from [facility]. Negative blood cultures here. Sean Julien MD Nov 02, 2017 11:10
[2017-11-02 12:00] VITALS: BP 127/90; PULSE 95; RESP 18; TEMP 98.5; O2SAT 99
[2017-11-02] MEDS ORDERED: VANCOMYCIN INJ 750 MG in SODIUM CHLOR 0.9% 250 ML INJ 250 ML IV SCH (12:00)
[2017-11-02] MEDS: HEPARIN SODIUM - SQ 10,000 UNITS/ML VIAL SQ SCH ×2 (12:15→23:15)
[2017-11-02] MEDS ORDERED: MAGNESIUM CITRATE SOLN 300 ML BTL PO ONE ×2 (15:15→20:00)
--- NOTE | 2017-11-02 15:18 | PD.PROCEDR ---
GI Procedure PROCEDURE PERFORMED EGD followed by an incomplete colonoscopy due to poor prep INDICATION FOR PROCEDURE Nausea, vomiting, diarrhea, history of Crohn's disease PROCEDURE: The procedure, risks and benefits were discussed with Ms. Sprague and informed consent was obtained. Anesthesia sedated her with Diprivan. She was placed in the left lateral decubitus position. EGD: The Pentax videoscope was introduced through the oropharynx and advanced to the second portion of the duodenum under direct visualization. Retroflexion was performed in the stomach. FINDINGS: The esophagus this was normal The stomach this was normal The duodenum this was normal Colonoscopy: The Pentax videoscope was introduced through the rectum and advanced to the proximal transverse colon. Retroflexion was performed in the rectum. Colonic prep was poor FINDINGS: This was an incomplete colonoscopy due to poor prep but what little colonic mucosa that was seen was unremarkable and within normal limits ESTIMATED BLOOD LOSS: None SPECIMENS REMOVED: None COMPLICATIONS: None IMPRESSION: Normal EGD Incomplete colonoscopy PLAN: Repeat colonoscopy No evidence of Crohn's at this point, unremarkable CT of the abdomen Continue with current supportive care Nilay Juárez MD Nov 02, 2017 15:18
[2017-11-02] MEDS ORDERED: PHARMACY ORDERED LAB ONE (15:45)
[2017-11-02 16:00] VITALS: BP 152/100; PULSE 97; RESP 18; TEMP 98.3; O2SAT 99
[2017-11-02] MEDS ORDERED: DO NOT ADM ANY ANTICOAGULANT DRUGS PRN (19:00)
[2017-11-02 20:00] VITALS: BP 122/80; PULSE 87; RESP 18; TEMP 98.4; O2SAT 97
[2017-11-03] VITALS (8 sets, daily range): BP systolic 115–128; BP diastolic 69–82; PULSE 76–107; RESP 16–22; TEMP 97.6–98.9; O2SAT 95–100
[2017-11-03] MEDS: oxyCODONE/ACETAMINOPHEN 5 MG/325 MG TAB PO PRN ×5 (00:28→20:54)
[2017-11-03] MEDS: MORPHINE SULFATE 4 MG/ML INJ IV PRN ×5 (02:44→21:58)
[2017-11-03] MEDS ORDERED: MAGNESIUM CITRATE SOLN 300 ML BTL PO ONE (05:00)
[2017-11-03] MEDS: CEFEPIME INJ 2,000 MG in SODIUM CHLORIDE 0.9% INJ 100 ML IV SCH ×3 (05:49→18:00)
--- NOTE | 2017-11-03 07:43 | HHI.PR ---
Subjective Remarks in no acute distress. pain seems to be better. afebrile. awaiting colonoscopy. Objective Vitals Vital Signs Date Time Temp Pulse Resp B/P (MAP) Pulse Ox O2 Delivery O2 Flow Rate FiO2 11/03/17 04:00 97.6 82 18 124/82 (96) 99 11/03/17 01:02 97 11/03/17 00:00 98.1 90 18 118/78 (91) 97 11/02/17 20:00 98.4 87 18 122/80 (94) 97 11/02/17 16:00 98.3 97 18 152/100 (117) 99 11/02/17 15:00 108 18 123/86 (98) 97 Room Air 11/02/17 12:36 18 11/02/17 12:00 98.5 95 18 127/90 (102) 99 11/02/17 08:00 98.4 92 18 124/86 (99) 98 I/O 11/02/17 11/02/17 11/02/17 11/03/17 11/03/17 11/03/17 07:00 15:00 23:00 07:00 15:00 23:00 Intake Total 300 ml Balance 300 ml Other 300 ml Result Diagram: 11/01/17 0700 11/01/17 0700 Imaging Last Impressions Ankle X-Ray 11/02/17 0000 Signed Impressions: Service Date/Time: Thursday, November 02, 2017 08:47 - CONCLUSION: 1. Small ulcer in the heel region without significant subcutaneous emphysema, radiopaque foreign body or bony erosive change. Lenny Dee MD Abdomen/Pelvis CT 11/01/17 0000 Signed Impressions: Service Date/Time: Wednesday, November 01, 2017 21:16 - CONCLUSION: 1. No acute findings on abdomen and pelvic CT. Kevin Wells MD Lower Extremity CT 10/29/17 0000 Signed Impressions: Service Date/Time: Sunday, October 29, 2017 23:14 - CONCLUSION: Mild diffuse subcutaneous edema as above. No abscess. Juan Walker MD Objective Remarks GENERAL: This is a well-nourished, well-developed patient, in no apparent distress. CARDIOVASCULAR: Regular rate and regular rhythm without murmurs, gallops, or rubs. RESPIRATORY: Clear to auscultation. Breath sounds equal bilaterally. No wheezes , rales, or rhonchi. GASTROINTESTINAL: Abdomen soft, non-tender, nondistended. Normal, active bowel sounds MUSCULOSKELETAL: swelling of the left foot/leg NEURO: Alert & Oriented x4 to person, place, time, situation. Moves all ext x4 skin; erythema over both lower extremities Procedures decompression of the left ankle blister- EGD/ colonoscopy. Medications and IVs Inpatient Medications Acetaminophen (Tylenol) 650 mg Q4H PRN PO FEVER; Start 10/30/17 at 00:15 Bisacodyl (Dulcolax Supp) 10 mg DAILY PRN RECTAL SEVERE CONSITIPATION/ IF NPO; Start 10/30/17 at 00:15 Cefepime HCl 2000 mg/Sodium Chloride 100 ml @ 200 mls/hr Q8H IV Last administered on 11/03/17 05:49; Start 10/30/17 at 14:00 Clindamycin Phosphate 900 mg/ Sodium Chloride 106 ml @ 200 mls/hr ONCE ONCE IV Last administered on 10/29/17 21:56; Start 10/29/17 at 19:45; Stop at 20:16; Status DC Diatrizoate Meglum/ Diatrizoate Sod ( Gastroview Liq) 18 ml ONCE ONCE PO Last administered on 11/01/17 12:21; Start 11/01/17 at 12:00; Stop 11/01/17 at 12:01; Status DC Heparin Sodium (Porcine) (Heparin Inj) 5,000 units Q12H SQ Last administered on 10/31/17 13:25; Start 10/30/17 at 00:15 Lactulose (Lactulose Liq) 30 ml DAILY PRN PO SEVERE CONSITIPATION/ IF PO; Start 10/30/17 at 00:15 Magnesium Hydroxide (Milk Of Magnesia Liq) 30 ml Q12H PRN PO Mild constipation ; Start 10/30/17 at 00:15 Magnesium Citrate (Citroma Liq) 300 ml ONCE ONCE PO Last administered on 11/03 05:00; Start 11/03/17 at 05:00; Stop 11/03/17 at 05:01; Status DC Miscellaneous Information ALL NURSING DEPARTME... UNSCH PRN .XX SEE LABEL COMMENTS; Start 11/02/17 at 19:00; Stop 11/03/17 at 18:59 Morphine Sulfate (Morphine Inj) 2 mg ONCE ONCE IV PUSH Last administered on 08:31; Start 11/02/17 at 09:00; Stop 11/02/17 at 09:01; Status DC Naloxone HCl (Narcan Inj) 0.4 mg UNSCH PRN IV PUSH SEE LABEL COMMENTS; Start 10/30/17 at 00:15 Ondansetron HCl (Zofran Inj) 4 mg Q6H PRN IVP NAUSEA OR VOMITING Last administered on 11/01/17 23:58; Start 10/30/17 at 00:15 Oxycodone/ Acetaminophen (Percocet 5-325 Mg) 2 tab Q4H PRN PO PAIN SCALE 6 TO 10 Last administered on 11/03/17 05:51; Start 10/30/17 at 19:45 Pharmacy Profile Note 0 ml @ 0 mls/hr UNSCH OTHER ; Start 10/30/17 at 00:15 Piperacillin Sod/ Tazobactam Sod 50 ml @ 100 mls/hr Q6H IV Last administered on 10/30/17 08:30; Start 10/30/17 at 09:00; Stop 10/30/17 at 13:56; Status DC Polyethylene Glycol/ Electrolytes (Colyte Liq) 4,000 ml ONCE ONCE PO Last administered on 11/01/17 16:00; Start 11/01/17 at 16:00; Stop 11/01/17 at 16 :01; Status DC Senna/Docusate Sodium (Damari-Colace) 1 tab BID PO ; Start 10/30/17 at 09:00 Sennosides (Senokot) 17.2 mg Q12H PRN PO Moderate constipation; Start 10/30/17 at 00:15 Sodium Chloride (NS Flush) 2 ml BID IV FLUSH Last administered on 11/02/17 20 :12; Start 10/30/17 at 09:00 Vancomycin HCl 750 mg/Sodium Chloride 257.5 ml @ 250 mls/hr Q8H IV Last administered on 11/02/17 23:15; Start 11/02/17 at 16:00 Vancomycin HCl 800 mg/Sodium Chloride 258 ml @ 250 mls/hr DAILY@0200 IV Last administered on 12/9/17at 02:43; Start 10/30/17 at 02:00; Stop 10/30/17 at 06:00 ; Status DC A/P Problem List: (1) Cellulitis of leg, right ICD Code: L03.115 - Cellulitis of right lower limb Status: Acute Assessment and Plan A/P - cellulitis of both lower extremities superimposed on vasculitis continue Vanco and Cefepime- blood cultures negative so far. ESR 69- RF negative- AMIE negative / HIV screen negative- echo with EF45% and no endocarditis- will follow the serology. vascular surgery consult appreciated; and no surgical interventions at this time. podiatry consult appreciated- s/p decompression of the left ankle blister. wound care following. previously d/w ; GI consulted for questionable history of Crohn's disease- will consider steroid trial after the GI evaluation/ work-up. s/p EGD which was unremarkable- colonoscopy was a poor prep; plan for repeat colonoscopy today. f/u with rheumatology as outpatient. - hepatitis C- f/u as outpatient. -DVT prophylaxis with subq Heparin. Discharge Planning not ready for discharge yet- work-up for cellulitis/vasculitis in progress. Brandin Davis MD Nov 03, 2017 07:43
[2017-11-03] MEDS: VANCOMYCIN INJ 750 MG in SODIUM CHLOR 0.9% 250 ML INJ 250 ML IV SCH ×3 (08:00→16:27)
[2017-11-03] MEDS: SODIUM CHLORIDE 0.9% FLUSH 10 ML FLUSH IV FLUSH SCH ×2 (08:31→20:55)
[2017-11-03] MEDS: DOCUSATE SODIUM 50 MG/SENNA 8.6 MG TAB PO SCH ×2 (08:31→20:54)
[2017-11-03] MEDS: HEPARIN SODIUM - SQ 10,000 UNITS/ML VIAL SQ SCH (11:43)
[2017-11-03] MEDS ORDERED: PHARMACY ORDERED LAB ONE (15:45)
--- NOTE | 2017-11-03 15:58 | EKG ---
Date Performed: 11/02/2017 Time Performed: 13:14:38 PTAGE: 42 years EKG: Sinus rhythm MODERATE T-WAVE ABNORMALITY, CONSIDER ANTERIOR ISCHEMIA ABNORMAL ECG NO PREVIOUS TRACING DOCTOR: Johnny Reynolds Interpretating Date/Time 11/03/2017 15:56:58
--- NOTE | 2017-11-03 22:30 | HHI.GIFU ---
Subjective Remarks Patient seen in the holding area prior to colonoscopy she was complaining that she had been waiting for a couple of hours Objective Vitals I&O Vital Signs Date Time Temp Pulse Resp B/P (MAP) Pulse Ox O2 Delivery O2 Flow Rate FiO2 11/03/17 20:00 98.9 107 22 127/79 (95) 97 11/03/17 17:45 99 21 11/03/17 12:57 97.9 79 16 128/69 (88) 100 11/03/17 12:00 100 11/03/17 08:12 97.9 76 18 115/76 (89) 95 11/03/17 04:00 97.6 82 18 124/82 (96) 99 11/03/17 01:02 97 11/03/17 00:00 98.1 90 18 118/78 (91) 97 I/O 11/02/17 11/02/17 11/02/17 11/03/17 11/03/17 11/03/17 07:00 15:00 23:00 07:00 15:00 23:00 Intake Total 300 ml 257.5 ml 757.5 ml Balance 300 ml 257.5 ml 757.5 ml IV Total 257.5 ml 757.5 ml Other 300 ml # Voids 4 Laboratory Laboratory Tests Test 11/03/17 12:15 11/03/17 15:45 Creatinine 0.58 Estimat Glomerular Filtration Rate 113 Vancomycin Level Trough 16.5 Date/Time Source Procedure Growth Status 10/29/17 21:50 Blood Peripheral Aerobic Blood Culture - Final NO GROWTH IN 5 DAYS Complete 10/29/17 21:50 Blood Peripheral Anaerobic Blood Culture - Final NO GROWTH IN 5 DAYS Complete 11/01/17 17:30 Stool Stool Cryptosporidium Exam Pending Resulted 11/01/17 17:30 Stool Stool Stool Pus (JACOB) - Final Resulted 11/01/17 17:30 Stool Stool Giardia Antigen (JACOB) Pending Resulted 10/31/17 16:35 Urine Clean Catch Urine Culture - Final NO GROWTH IN 48 HOURS. Complete Imaging Last Impressions Ankle X-Ray 11/02/17 0000 Signed Impressions: Service Date/Time: Thursday, November 02, 2017 08:47 - CONCLUSION: 1. Small ulcer in the heel region without significant subcutaneous emphysema, radiopaque foreign body or bony erosive change. Lenny Dee MD Abdomen/Pelvis CT 11/01/17 0000 Signed Impressions: Service Date/Time: Wednesday, November 01, 2017 21:16 - CONCLUSION: 1. No acute findings on abdomen and pelvic CT. Kevin Wells MD Lower Extremity CT 10/29/17 0000 Signed Impressions: Service Date/Time: Sunday, October 29, 2017 23:14 - CONCLUSION: Mild diffuse subcutaneous edema as above. No abscess. Juan Walker MD Physical Exam HEENT: normocephalic; atraumatic; no jaundice. Throat is clear. NECK: Neck is supple, CHEST: Chest is clear to auscultation and percussion. CARDIAC: Regular rate and rhythm with no murmur gallop or rubs. ABDOMEN: Soft, nondistended, mildly tender with no rebound or guarding; no hepatosplenomegaly; bowel sounds are present in all four quadrants. EXTREMITIES: No clubbing, cyanosis, or edema. SKIN: Normal; no rash; no jaundice. CONTINUOUS TOWEL ROLLER: No focal deficits; alert and oriented times three. Assessment and Plan Assessment: (1) Cocaine abuse ICD Codes: F14.10 - Cocaine abuse, uncomplicated (2) Nausea & vomiting ICD Codes: R11.2 - Nausea with vomiting, unspecified (3) Diarrhea ICD Codes: R19.7 - Diarrhea, unspecified (4) Hepatitis C ICD Codes: B19.20 - Unspecified viral hepatitis C without hepatic coma (5) Crohn's disease ICD Codes: K50.90 - Crohn's disease, unspecified, without complications Plan Crohn's disease by history and his fact when asking about the detail this is a very weak history this was a diagnosis that occurred about 15 years ago and there has been no recurrences since then and the CT scan of the abdomen shows no small bowel or large bowel abnormalities, patient has labs that are pending which includes AMIE, still having diarrhea stools worse over the past 2 days, denies any obvious blood, no history of colonoscopy that she remembers Plan CT of the abdomen for initial workup, plan for colonoscopy in the a.m.. Be nothing by mouth at midnight, currently we'll maintain nothing by mouth for CT abdomen today, GoLYTELY prep at 1600. We will add clear liquids this p.m. for her diet., Elevated CRP level noted from admission 2.66 Nausea and vomiting, weight loss, Medical management, EGD scheduled for a.m. with colonoscopy. After testing completed this morning patient can have clear liquids. Protonix 40 mg IV daily Diarrhea Plan stool studies for ova and parasite, culture, C. difficile, H pylori, lesli After testing and workup complete will decide on any acute changes in her plan of care Unfortunately in spite of the fact that the patient was almost due for her endoscopy and she had prepped she made a decision not to go through with the endoscopy and decided to go back to the floor We will revisit this issue tomorrow with the patient In the meanwhile continue with current supportive care Problem Qualifiers (1) Hepatitis C: Qualified Codes: B18.2 - Chronic viral hepatitis C Nilay Juárez MD Nov 03, 2017 22:30
[2017-11-04] MEDS: CEFEPIME INJ 2,000 MG in SODIUM CHLORIDE 0.9% INJ 100 ML IV SCH ×2 (00:53→09:10)
[2017-11-04] MEDS: HEPARIN SODIUM - SQ 10,000 UNITS/ML VIAL SQ SCH ×2 (00:53→11:18)
[2017-11-04] MEDS: oxyCODONE/ACETAMINOPHEN 5 MG/325 MG TAB PO PRN ×6 (00:53→21:45)
[2017-11-04] MEDS: MORPHINE SULFATE 4 MG/ML INJ IV PRN (02:10)
[2017-11-04 04:00] VITALS: BP 128/73; PULSE 95; RESP 18; TEMP 99.5; O2SAT 94
[2017-11-04] MEDS: VANCOMYCIN INJ 750 MG in SODIUM CHLOR 0.9% 250 ML INJ 250 ML IV SCH ×2 (05:49→17:41)
[2017-11-04 07:23] LABS: AUTOMATED NEUTROPHIL # 3.6 TH/MM3 (1.8-7.7); BASOPHIL # 0.1 TH/MM3 (0-0.2); BASOPHIL % 0.9 % (0.0-2.0); EOSINOPHIL # 0.2 TH/MM3 (0-0.4); HEMATOCRIT 36.4 % (35.0-46.0); HEMO FLAGS DIFF FINAL; LYMPH % 23.2 % (9.0-44.0); LYMPHOCYTE # 1.3 TH/MM3 (1.0-4.8); MEAN CELL VOLUME 81.9 FL (80.0-100.0); MEAN CORPUSCULAR HEMOGLOBIN 26.3 PG (27.0-34.0); MEAN CORPUSCULAR HGB CONC 32.2 % (32.0-36.0); MONO % 8.1 % (0.0-8.0); NEUT % 63.8 % (16.0-70.0); PLATELET COUNT 306 TH/MM3 (150-450); RED BLOOD COUNT 4.45 MIL/MM3 (4.00-5.30); RED CELL DISTRIBUTION WIDTH 15.8 % (11.6-17.2); WHITE BLOOD COUNT 5.6 TH/MM3 (4.0-11.0)
[2017-11-04 07:44] LABS: BICARBONATE 24.9 MEQ/L (21.0-32.0); POTASSIUM 4.2 MEQ/L (3.5-5.1)
[2017-11-04] MEDS: DOCUSATE SODIUM 50 MG/SENNA 8.6 MG TAB PO SCH ×2 (07:59→20:13)
[2017-11-04] MEDS: MORPHINE SULFATE 2 MG/ML INJ IV PUSH PRN ×4 (08:00→20:13)
[2017-11-04 08:12] VITALS: BP 140/65; PULSE 94; RESP 20; TEMP 98.8; O2SAT 96
[2017-11-04] MEDS: SODIUM CHLORIDE 0.9% FLUSH 10 ML FLUSH IV FLUSH SCH ×2 (08:16→20:12)
[2017-11-04 12:01] VITALS: BP 131/82; PULSE 93; RESP 20; TEMP 98.5; O2SAT 95
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
--- NOTE | 2017-11-04 13:19 | HHI.IDPN ---
Note Infectious Disease Note ID Coverage: Notes reviewed. Patient notes that she feels okay. Notes that she had severe pain after the bedsheet pulled off a dried part of the skin lesion at the lateral left leg last night. Afebrile. Previous large purpuric patches with surrounding erythema at the legs are now drying and forming necrotic scabs. 2D ECHO without signs of endocarditis. Past Family Social History Allergies: Coded Allergies: codeine (Verified Allergy, Severe, 10/29/17) ketorolac (Verified Allergy, Severe, 10/29/17) penicillin G (Verified Allergy, Intermediate, Rash, 10/30/17) Past Medical History Crohn's disease per history Hepatitis C treatment melissa Recurrent cellulitis Past Surgical History Appendectomy Hysterectomy ? Some bowel surgery for Crohn's Reported Medications Reported Meds & Active Scripts Active No Active Prescriptions or Reported Medications Active Ordered Medications Current Medications Medications (Trade) Dose Ordered Sig/Malgorzata Route PRN Reason Start Time Stop Time Status Last Admin Dose Admin Sodium Chloride (NS Flush) 2 ml UNSCH PRN IV FLUSH FLUSH AFTER USING IV ACCESS 10/30/17 00:15 Sodium Chloride (NS Flush) 2 ml BID IV FLUSH 10/30/17 09:00 11/04/17 08:16 Acetaminophen (Tylenol) 650 mg Q4H PRN PO FEVER 10/30/17 00:15 Ondansetron HCl (Zofran Inj) 4 mg Q6H PRN IVP NAUSEA OR VOMITING 10/30/17 00:15 11/01/17 23:58 Heparin Sodium (Porcine) (Heparin Inj) 5,000 units Q12H SQ 10/30/17 00:15 11/04/17 00:53 Naloxone HCl (Narcan Inj) 0.4 mg UNSCH PRN IV PUSH SEE LABEL COMMENTS 10/30/17 00:15 Senna/Docusate Sodium (Damari-Colace) 1 tab BID PO 10/30/17 09:00 Magnesium Hydroxide (Milk Of Magnesia Liq) 30 ml Q12H PRN PO Mild constipation 10/30/17 00:15 Sennosides (Senokot) 17.2 mg Q12H PRN PO Moderate constipation 10/30/17 00:15 Bisacodyl (Dulcolax Supp) 10 mg DAILY PRN RECTAL SEVERE CONSITIPATION 10/30/17 00:15 Lactulose (Lactulose Liq) 30 ml DAILY PRN PO SEVERE CONSITIPATION 10/30/17 00:15 Pharmacy Profile Note 0 ml @ 0 mls/hr UNSCH OTHER 10/30/17 00:15 Oxycodone/ Acetaminophen (Percocet 5-325 Mg) 1 tab Q4H PRN PO PAIN SCALE 1 TO 5 10/30/17 19:45 Oxycodone/ Acetaminophen (Percocet 5-325 Mg) 2 tab Q4H PRN PO PAIN SCALE 6 TO 10 10/30/17 19:45 11/04/17 09:47 Cefepime HCl 2000 mg/Sodium Chloride 100 ml @ 200 mls/hr Q8H IV 11/03/17 18:00 11/04/17 09:10 Vancomycin HCl 750 mg/Sodium Chloride 257.5 ml @ 250 mls/hr Q12H IV 11/04/17 06:00 11/04/17 05:49 Miscellaneous Information SPECIFIC LAB TO BE DRAWN:VA... ONCE ONCE .XX 11/04/17 17:45 11/04/17 17:46 Morphine Sulfate (Morphine Inj) 2 mg Q4H PRN IV PUSH BREAKTHROUGH PAIN 11/04/17 07:30 11/04/17 11:59 Social History per record. reports her 1 year back. She denies IVDA but records indicate she admitted to RN at that hospital "used synthetic IV drugs" Drug screen positive for Cocaine. Smokes 1 ppd or more for many years. Does not want to quit. Counseled for 15 mins. Denies alcohol. Physical Exam OBJECTIVE: Vital Signs Date Time Temp Pulse Resp B/P (MAP) Pulse Ox O2 Delivery O2 Flow Rate FiO2 11/04/17 12:31 18 11/04/17 12:01 98.5 93 20 131/82 (98) 95 11/04/17 10:38 16 11/04/17 08:12 98.8 94 20 140/65 (90) 96 11/04/17 04:00 99.5 95 18 128/73 (91) 94 11/03/17 20:00 98.9 107 17 127/79 (95) 97 11/03/17 17:45 99 21 Laboratory Tests Test 11/04/17 05:44 White Blood Count 5.6 TH/MM3 Red Blood Count 4.45 MIL/MM3 Hemoglobin 11.7 GM/DL Hematocrit 36.4 % Mean Corpuscular Volume 81.9 FL Mean Corpuscular Hemoglobin 26.3 PG Mean Corpuscular Hemoglobin Concent 32.2 % Red Cell Distribution Width 15.8 % Platelet Count 306 TH/MM3 Mean Platelet Volume 8.0 FL Neutrophils (%) (Auto) 63.8 % Lymphocytes (%) (Auto) 23.2 % Monocytes (%) (Auto) 8.1 % Eosinophils (%) (Auto) 4.0 % Basophils (%) (Auto) 0.9 % Neutrophils # (Auto) 3.6 TH/MM3 Lymphocytes # (Auto) 1.3 TH/MM3 Monocytes # (Auto) 0.5 TH/MM3 Eosinophils # (Auto) 0.2 TH/MM3 Basophils # (Auto) 0.1 TH/MM3 CBC Comment DIFF FINAL Differential Comment Laboratory Tests Test 11/03/17 12:15 11/04/17 05:44 Creatinine 0.58 MG/DL 0.61 MG/DL Estimat Glomerular Filtration Rate 113 ML/MIN 107 ML/MIN Blood Urea Nitrogen 10 MG/DL Random Glucose 86 MG/DL Calcium Level 8.4 MG/DL Sodium Level 131 MEQ/L Potassium Level 4.2 MEQ/L Chloride Level 98 MEQ/L Carbon Dioxide Level 24.9 MEQ/L Anion Gap 8 MEQ/L Microbiology Date/Time Source Procedure Growth Status 11/01/17 17:30 Stool Stool Cryptosporidium Exam - Final NEGATIVE - NO CRYPTOSPORIDIUM ANTIGEN... Complete 11/01/17 17:30 Stool Stool Stool Pus (JACOB) - Final Complete 11/01/17 17:30 Stool Stool Giardia Antigen (JACOB) - Final NEGATIVE - NO GIARDIA ANTIGEN DETECTE... Complete 11/01/17 17:30 Stool Stool - Final NO ENTERIC PATHOGENS DETECTED BY PCR... Complete GENERAL: Patient is in no acute distress. HEENT: NIKKO. EOMI, No icterus. NECK: Supple. No adenopathy. LUNGS: Clear breath sounds. CARDIAC: Regular rate and rhythm ABDOMEN: Soft, non tender. EXTREMITIES: No CCE. large purpuric patches now necrotic scabs with less erythema at the legs. Large blister at the left heel has broken. SKIN: No diffuse rash. NEUROLOGIC: Non focal. Assessment and Plan Assessment and Plan Cellulitis bilateral LE associated vasculitic changes. Heel with vasculitis changes. 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 Possible Endocarditis but these lesions don't look like septic emboli as they are on the ears bilaterally. Hepatitis C (can cause cryoglobulinemia) IVDA per records at Blood cultures pending from need to be followed. Penicillin allergy: rash, N/V. Recs Stop Cefepime. 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 Sean Julien MD Nov 04, 2017 13:19
[2017-11-04] MEDS ORDERED: diphenhydrAMINE HCL 50 MG/ML VIAL IV PRN (13:30)
[2017-11-04] MEDS ORDERED: diphenhydrAMINE HCL 50 MG/ML VIAL IM ONE (13:30)
--- NOTE | 2017-11-04 13:38 | HHI.GIFU ---
Subjective Remarks Pt sitting up in bad in NAD. Asking to do colonoscopy again. c/o itchy red welts on legs. (Sallie Salazar) Objective Vitals I&O Vital Signs Date Time Temp Pulse Resp B/P (MAP) Pulse Ox O2 Delivery O2 Flow Rate FiO2 11/04/17 12:31 18 11/04/17 12:01 98.5 93 20 131/82 (98) 95 11/04/17 10:38 16 11/04/17 08:12 98.8 94 20 140/65 (90) 96 11/04/17 04:00 99.5 95 18 128/73 (91) 94 11/03/17 20:00 98.9 107 17 127/79 (95) 97 11/03/17 17:45 99 21 I/O 11/03/17 11/03/17 11/03/17 11/04/17 11/04/17 11/04/17 07:00 15:00 23:00 07:00 15:00 23:00 Intake Total 257.5 ml 757.5 ml Balance 257.5 ml 757.5 ml IV Total 257.5 ml 757.5 ml # Voids 4 7 # Bowel Movements 2 Laboratory Laboratory Tests Test 11/03/17 15:45 11/04/17 05:44 Vancomycin Level Trough 16.5 White Blood Count 5.6 Red Blood Count 4.45 Hemoglobin 11.7 Hematocrit 36.4 Mean Corpuscular Volume 81.9 Mean Corpuscular Hemoglobin 26.3 Mean Corpuscular Hemoglobin Concent 32.2 Red Cell Distribution Width 15.8 Platelet Count 306 Mean Platelet Volume 8.0 Neutrophils (%) (Auto) 63.8 Lymphocytes (%) (Auto) 23.2 Monocytes (%) (Auto) 8.1 Eosinophils (%) (Auto) 4.0 Basophils (%) (Auto) 0.9 Neutrophils # (Auto) 3.6 Lymphocytes # (Auto) 1.3 Monocytes # (Auto) 0.5 Eosinophils # (Auto) 0.2 Basophils # (Auto) 0.1 CBC Comment DIFF FINAL Differential Comment Blood Urea Nitrogen 10 Creatinine 0.61 Random Glucose 86 Calcium Level 8.4 Sodium Level 131 Potassium Level 4.2 Chloride Level 98 Carbon Dioxide Level 24.9 Anion Gap 8 Estimat Glomerular Filtration Rate 107 Date/Time Source Procedure Growth Status 10/29/17 21:50 Blood Peripheral Aerobic Blood Culture - Final NO GROWTH IN 5 DAYS Complete 10/29/17 21:50 Blood Peripheral Anaerobic Blood Culture - Final NO GROWTH IN 5 DAYS Complete 11/01/17 17:30 Stool Stool Cryptosporidium Exam - Final NEGATIVE - NO CRYPTOSPORIDIUM ANTIGEN... Complete 11/01/17 17:30 Stool Stool Stool Pus (JACOB) - Final Complete 11/01/17 17:30 Stool Stool Giardia Antigen (JACOB) - Final NEGATIVE - NO GIARDIA ANTIGEN DETECTE... Complete 10/31/17 16:35 Urine Clean Catch Urine Culture - Final NO GROWTH IN 48 HOURS. Complete Physical Exam HEENT: normocephalic; atraumatic; no jaundice. Throat is clear. NECK: Neck is supple, CHEST: Chest is clear to auscultation and percussion. CARDIAC: Regular rate and rhythm with no murmur gallop or rubs. ABDOMEN: Soft, nondistended, mildly tender with no rebound or guarding; no hepatosplenomegaly; bowel sounds are present in all four quadrants. EXTREMITIES: No clubbing, cyanosis, necrotic skin right ankle SKIN: Normal; no jaundice. wheels and erythema BLE COMPUTER INFORMATION SYSTEMS INSTRUCTOR: No focal deficits; alert and oriented times three. (Sallie Salazar) Assessment and Plan Plan -Crohn's disease by history and his fact when asking about the detail this is a very weak history this was a diagnosis that occurred about 15 years ago and there has been no recurrences since then and the CT scan of the abdomen shows no small bowel or large bowel abnormalities, AMIE neg. will do colonoscopy tomorrow -Nausea and vomiting, weight loss- s/p EGD normal. incomplete colonoscopy with poor prep. was scheduled for colonoscopy yesterday and she refused -Diarrhea stool studies neg, c diff neg - ?allergic reaction - wheels and redness BLE d/w primary, getting benadryl PLAN - colonoscopy tomorrow - obtain consent - clears today - NPO after midnight - Mg Citrate x 3 (2 today, 1 tomorrow am) - further recs to follow This pt seen by myself and Dr Juárez and this note is written on her behalf (Sallie Salazar) Physician Comments Patient seen and examined Agree with above Continue with current supportive care Monitor labs Colonoscopy tomorrow (Nilay Juárez MD) Sallie Salazar Nov 04, 2017 13:38 Nilay Juárez MD Nov 04, 2017 20:19
[2017-11-04 13:39] VITALS: O2SAT 95
[2017-11-04] MEDS: predniSONE 20 MG TAB PO SCH ×2 (13:45→20:13)
[2017-11-04] MEDS ORDERED: MAGNESIUM CITRATE SOLN 300 ML BTL PO ONE ×2 (13:45→18:00)
[2017-11-04 15:51] LABS: CRYOCRIT ND % (NONE DETECTED)
[2017-11-04 16:50] VITALS: BP 154/99; PULSE 107; RESP 20; TEMP 99; O2SAT 99
[2017-11-04] MEDS ORDERED: PHARMACY ORDERED LAB ONE (17:45)
[2017-11-05] VITALS (7 sets, daily range): BP systolic 84–155; BP diastolic 66–98; PULSE 71–105; RESP 18–20; TEMP 97.7–98.7; O2SAT 96–100
[2017-11-05] MEDS: HEPARIN SODIUM - SQ 10,000 UNITS/ML VIAL SQ SCH ×2 (00:15→12:15)
[2017-11-05] MEDS: MORPHINE SULFATE 2 MG/ML INJ IV PUSH PRN ×6 (00:25→23:29)
[2017-11-05] MEDS: oxyCODONE/ACETAMINOPHEN 5 MG/325 MG TAB PO PRN ×5 (02:23→21:47)
[2017-11-05] MEDS ORDERED: LACTATED RINGER'S 1000 ML IV PRN (03:15)
[2017-11-05] MEDS ORDERED: POVIDONE IODINE 5% (ANTISEPSIS KIT) 4 APPLICATIONS EACH NARE PRN (03:15)
[2017-11-05] MEDS ORDERED: CHLORHEXIDINE GLUCONATE 2 % 1 PACK (2 CLOTHS) TOPICAL PRN (03:15)
[2017-11-05] MEDS: VANCOMYCIN INJ 750 MG in SODIUM CHLOR 0.9% 250 ML INJ 250 ML IV SCH ×2 (06:35→18:32)
[2017-11-05] MEDS: ONDANSETRON HCL 4 MG/2 ML VIAL IVP PRN (06:36)
[2017-11-05] MEDS ORDERED: MAGNESIUM CITRATE SOLN 300 ML BTL PO ONE (07:00)
[2017-11-05 07:53] LABS: THROMBIN TIME FOR LA ND sec (13-19)
[2017-11-05] MEDS: SODIUM CHLORIDE 0.9% FLUSH 10 ML FLUSH IV FLUSH SCH ×2 (08:27→21:00)
[2017-11-05] MEDS: predniSONE 20 MG TAB PO SCH ×2 (08:29→21:47)
[2017-11-05] MEDS: DOCUSATE SODIUM 50 MG/SENNA 8.6 MG TAB PO SCH ×2 (08:29→21:00)
--- NOTE | 2017-11-05 10:21 | HHI.PR ---
Subjective Remarks Pt seen earlier this morning, denies any CP/SOB/N/V waiting for her colonoscopy Objective Vitals Vital Signs Date Time Temp Pulse Resp B/P (MAP) Pulse Ox O2 Delivery O2 Flow Rate FiO2 11/05/17 08:04 97.8 72 20 84/ 98 11/05/17 04:00 98.7 71 18 127/73 (91) 97 11/05/17 00:00 98.6 94 18 127/66 (86) 96 11/04/17 18:59 16 11/04/17 16:50 99.0 107 20 154/99 (117) 99 11/04/17 16:06 16 11/04/17 13:39 95 11/04/17 12:01 98.5 93 20 131/82 (98) 95 I/O 11/04/17 11/04/17 11/04/17 11/05/17 11/05/17 11/05/17 07:00 15:00 23:00 07:00 15:00 23:00 Intake Total 960 ml Balance 960 ml Intake Oral 960 ml # Voids 7 4 # Bowel Movements 2 Result Diagram: 11/04/17 0544 11/05/17 0510 Imaging Last Impressions Ankle X-Ray 11/02/17 0000 Signed Impressions: Service Date/Time: Thursday, November 02, 2017 08:47 - CONCLUSION: 1. Small ulcer in the heel region without significant subcutaneous emphysema, radiopaque foreign body or bony erosive change. Lenny Dee MD Abdomen/Pelvis CT 11/01/17 0000 Signed Impressions: Service Date/Time: Wednesday, November 01, 2017 21:16 - CONCLUSION: 1. No acute findings on abdomen and pelvic CT. Kevin Wells MD Lower Extremity CT 10/29/17 0000 Signed Impressions: Service Date/Time: Sunday, October 29, 2017 23:14 - CONCLUSION: Mild diffuse subcutaneous edema as above. No abscess. Juan Walker MD Objective Remarks GENERAL: sitting up in bed CARDIOVASCULAR: Regular rate and regular rhythm without murmurs RESPIRATORY: Clear to auscultation. Breath sounds equal bilaterally. No wheezes GASTROINTESTINAL: Abdomen soft, non-tender, nondistended. Normal, active bowel sounds MUSCULOSKELETAL: multiple open sores in leg, non draining NEURO: Moves all ext x4 skin; erythema improving over both lower extremities Procedures decompression of the left ankle blister- EGD/ colonoscopy. A/P Problem List: (1) Cellulitis of leg, right ICD Code: L03.115 - Cellulitis of right lower limb Status: Acute Assessment and Plan - cellulitis of both lower extremities superimposed on vasculitis on Vanco. Pt did have an allergic reaction to the cefepime which was d/zeferino yesterday. On benadryl prn and prednisone 20mg PO BID. blood cultures negative so far. ESR 69- RF negative- AMIE negative / HIV screen negative- echo with EF45% and no endocarditis- thus far serology testing neg. vascular surgery consult appreciated; and no surgical interventions at this time. Pt does need to f/u w rheumatology/derm as an outpatient. podiatry consult appreciated- s/p decompression of the left ankle blister. dressing in place. wound care following. previously d/w ; GI consulted for questionable history of Crohn's disease- plan was initially to start steroid trial after the GI evaluation/ work -up, however pt developped hives w cefepime and was started on prednisone 20mg po BID Pt is scheduled for a repeat colonoscopy today s/p EGD which was unremarkable- colonoscopy was a poor prep; plan for repeat tomorrow as stated above. - hepatitis C- f/u as outpatient. -DVT prophylaxis with subq Heparin. Discharge Planning colonoscopy scheduled for today. Awaiting final recs from ID and GI continue vanco. needs f/u w rheumatology/derm as outpatient. Christina Lyons MD Nov 05, 2017 10:21
[2017-11-05] MEDS ORDERED: LIDOCAINE HCL 1% PF 5 ML SYRINGE OTHER ONE (12:00)
[2017-11-05] MEDS ORDERED: PROPOFOL 200 MG/20 ML AMP IV ONE (12:00)
--- NOTE | 2017-11-05 12:52 | HHI.GIFU ---
Subjective Remarks Colonoscopy performed to the on license of [facility]. Prep was suboptimal but copious washing was performed. No polyps or tumor were seen. There is mild diverticulosis. Tortuous colon. No bleeding sites seen. Objective Vitals I&O Vital Signs Date Time Temp Pulse Resp B/P (MAP) Pulse Ox O2 Delivery O2 Flow Rate FiO2 11/05/17 08:04 97.8 72 20 122/84 (97) 98 11/05/17 04:00 98.7 71 18 127/73 (91) 97 11/05/17 00:00 98.6 94 18 127/66 (86) 96 11/04/17 18:59 16 11/04/17 16:50 99.0 107 20 154/99 (117) 99 11/04/17 16:06 16 11/04/17 13:39 95 I/O 11/04/17 11/04/17 11/04/17 11/05/17 11/05/17 11/05/17 07:00 15:00 23:00 07:00 15:00 23:00 Intake Total 960 ml Balance 960 ml Intake Oral 960 ml # Voids 7 4 # Bowel Movements 2 Laboratory Laboratory Tests Test 11/05/17 05:10 Creatinine 0.48 Estimat Glomerular Filtration Rate 140 Date/Time Source Procedure Growth Status 10/29/17 21:50 Blood Peripheral Aerobic Blood Culture - Final NO GROWTH IN 5 DAYS Complete 10/29/17 21:50 Blood Peripheral Anaerobic Blood Culture - Final NO GROWTH IN 5 DAYS Complete 11/01/17 17:30 Stool Stool Cryptosporidium Exam - Final NEGATIVE - NO CRYPTOSPORIDIUM ANTIGEN... Complete 11/01/17 17:30 Stool Stool Stool Pus (JACOB) - Final Complete 11/01/17 17:30 Stool Stool Giardia Antigen (JACOB) - Final NEGATIVE - NO GIARDIA ANTIGEN DETECTE... Complete 10/31/17 16:35 Urine Clean Catch Urine Culture - Final NO GROWTH IN 48 HOURS. Complete Physical Exam HEENT: normocephalic; atraumatic; no jaundice. Throat is clear. NECK: Neck is supple, CHEST: Chest is clear to auscultation and percussion. CARDIAC: Regular rate and rhythm with no murmur gallop or rubs. ABDOMEN: Soft, nondistended, mildly tender with no rebound or guarding; no hepatosplenomegaly; bowel sounds are present in all four quadrants. EXTREMITIES: No clubbing, cyanosis, necrotic skin right ankle SKIN: Normal; no jaundice. wheels and erythema BLE SATELLITE INSTRUCTION FACILITATOR: No focal deficits; alert and oriented times three. Assessment and Plan Assessment: (1) Cocaine abuse ICD Codes: F14.10 - Cocaine abuse, uncomplicated (2) Nausea & vomiting ICD Codes: R11.2 - Nausea with vomiting, unspecified (3) Diarrhea ICD Codes: R19.7 - Diarrhea, unspecified (4) Hepatitis C ICD Codes: B19.20 - Unspecified viral hepatitis C without hepatic coma (5) Crohn's disease ICD Codes: K50.90 - Crohn's disease, unspecified, without complications Plan -Crohn's disease by history and his fact when asking about the detail this is a very weak history this was a diagnosis that occurred about 15 years ago and there has been no recurrences since then and the CT scan of the abdomen shows no small bowel or large bowel abnormalities, AMIE neg. will do colonoscopy tomorrow -Nausea and vomiting, weight loss- s/p EGD normal. incomplete colonoscopy with poor prep. was scheduled for colonoscopy yesterday and she refused -Diarrhea stool studies neg, c diff neg - ?allergic reaction - wheels and redness BLE d/w primary, getting benadryl PLAN - colonoscopy tomorrow - obtain consent - clears today - NPO after midnight - Mg Citrate x 3 (2 today, 1 tomorrow am) - further recs to follow This pt seen by myself and Dr Juárez and this note is written on her behalf Physician Comments No evidence of crohns disease on colonoscopy, but subopitmal exam due to retained stool. Terminal ileum not seen due to looping. Problem Qualifiers (1) Hepatitis C: Qualified Codes: B18.2 - Chronic viral hepatitis C Emile Galvan MD Nov 05, 2017 12:52
[2017-11-06] VITALS (7 sets, daily range): BP systolic 113–162; BP diastolic 73–93; PULSE 79–122; RESP 18–20; TEMP 97.9–98.6; O2SAT 94–99
[2017-11-06] MEDS: HEPARIN SODIUM - SQ 10,000 UNITS/ML VIAL SQ SCH ×2 (00:07→11:34)
[2017-11-06] MEDS: oxyCODONE/ACETAMINOPHEN 5 MG/325 MG TAB PO PRN ×6 (01:43→22:11)
[2017-11-06] MEDS: MORPHINE SULFATE 2 MG/ML INJ IV PUSH PRN ×6 (03:26→23:28)
[2017-11-06] MEDS ORDERED: PHARMACY ORDERED LAB ONE (05:45)
[2017-11-06] MEDS: DOCUSATE SODIUM 50 MG/SENNA 8.6 MG TAB PO SCH ×2 (09:00→21:00)
[2017-11-06] MEDS: predniSONE 20 MG TAB PO SCH ×2 (09:31→21:02)
[2017-11-06] MEDS: SODIUM CHLORIDE 0.9% FLUSH 10 ML FLUSH IV FLUSH SCH ×2 (09:34→21:04)
--- NOTE | 2017-11-06 11:33 | HHI.PR ---
Subjective Remarks patient seen bedside. States her legs are very painful and she has noticed improvement. Reports pain to left ankle. Objective Vital Signs Date Time Temp Pulse Resp B/P (MAP) Pulse Ox O2 Delivery O2 Flow Rate FiO2 11/06/17 08:00 97.9 90 19 113/79 (90) 99 11/06/17 07:56 94 21 11/06/17 04:45 98.2 88 20 123/73 (90) 98 11/06/17 00:22 98.6 122 20 162/81 (108) 95 11/05/17 21:46 97 11/05/17 20:00 98.5 105 20 155/98 (117) 100 11/05/17 15:36 97.7 87 20 132/91 (105) 100 11/05/17 14:10 100 11/05/17 12:52 97.7 75 16 116/75 (89) 100 I/O 11/05/17 11/05/17 11/05/17 11/06/17 11/06/17 11/06/17 07:00 15:00 23:00 07:00 15:00 23:00 Intake Total 460 ml Balance 460 ml Intake Oral 460 ml # Voids 3 3 # Bowel Movements 1 Result Diagram: 11/04/17 0544 11/05/17 0510 Other Results Laboratory Tests Test 11/05/17 05:10 11/06/17 07:25 Creatinine 0.48 MG/DL Estimat Glomerular Filtration Rate 140 ML/MIN Vancomycin Level Trough 3.8 MCG/ML Objective Remarks Vasc: DP/PT 2/4 bilaterally. WORLD LANGUAGE TEACHER under 3 secs to bilateral LE. No edema noted to bilateral LE. Neuro: Gross sensation intact. No hyperalgesia noted to bilateral LE. Derm: Bilateral LE purpura with ischemic ulcers encompassion over 50% of bilateral LE. Eschars noted with demarcation improvement noted to lesions. Mild damari eschar erythema noted. No drainage noted to bilateral LE lesions. Left lateral ankle blood blister resolving and improvement noted. MSK: Pain on palpation to bilateral LE. Decreased ROM noted to left ankle. Increased edema and erythema noted to left ankle. Pain on palpation to anterior ankle. Medications and IVs Current Medications Medications (Trade) Dose Ordered Sig/Malgorzata Route Start Time Stop Time Status Last Admin (NS Flush) 2 ml UNSCH PRN IV FLUSH 10/30/17 00:15 (NS Flush) 2 ml BID IV FLUSH 10/30/17 09:00 11/06/17 09:34 (Tylenol) 650 mg Q4H PRN PO 10/30/17 00:15 (Zofran Inj) 4 mg Q6H PRN IVP 10/30/17 00:15 11/05/17 06:36 (Heparin Inj) 5,000 units Q12H SQ 10/30/17 00:15 11/04/17 00:53 (Narcan Inj) 0.4 mg UNSCH PRN IV PUSH 10/30/17 00:15 (Damari-Colace) 1 tab BID PO 10/30/17 09:00 (Milk Of Magnesia Liq) 30 ml Q12H PRN PO 10/30/17 00:15 (Senokot) 17.2 mg Q12H PRN PO 10/30/17 00:15 (Dulcolax Supp) 10 mg DAILY PRN RECTAL 10/30/17 00:15 (Lactulose Liq) 30 ml DAILY PRN PO 10/30/17 00:15 Pharmacy Profile Note 0 ml @ 0 mls/hr UNSCH OTHER 10/30/17 00:15 (Percocet 5-325 Mg) 1 tab Q4H PRN PO 10/30/17 19:45 (Percocet 5-325 Mg) 2 tab Q4H PRN PO 10/30/17 19:45 11/06/17 09:55 (Morphine Inj) 2 mg Q4H PRN IV PUSH 11/04/17 07:30 11/06/17 07:03 (Deltasone) 20 mg BID PO 11/04/17 13:45 11/06/17 09:31 Lactated Ringer's 1,000 ml @ 30 mls/hr Q24H PRN IV 11/05/17 03:15 11/08/17 03:14 11/05/17 11:05 (Betadine 5% Antisepsis Kit) 1 applic REAL ESTATE SALESPERSON PRN EACH NARE 11/05/17 03:15 11/08/17 03:14 (Chlorhexidine 2% Cloth) 3 pack REAL ESTATE SALESPERSON PRN TOPICAL 11/05/17 03:15 11/08/17 03:14 Vancomycin HCl 750 mg/Sodium Chloride 257.5 ml @ 250 mls/hr Q8H IV 11/06/17 12:00 Miscellaneous Information SPECIFIC LAB TO BE SURY... ONCE ONCE .XX 11/07/17 11:45 11/07/17 11:46 Assessment and Plan Assessment and Plan 42 year old female with bilateral skin necrosis/ulcers Patient evaluated and treated with all questions answered Ok to proceed with santyl to Left lateral heel, Anterior tibial ulcer; Right medial heel ulcer and anterior leg ulcer. Apply nickel thick and only to areas with demarcated eschar. Dressed left lateral ankle with DSD Xrays reviewed Concern for possible septic ankle/ankle infection secondary to increased redness pain and decreased mobility to left ankle -MRI ordered of the left ankle Steph Zhou DPM Nov 06, 2017 11:33
--- NOTE | 2017-11-06 11:44 | HHI.GIFU ---
Subjective Remarks Pt sitting up in bed, in no apparent distress. Just finished eating breakfast. Matthew nausea, vomiting, abdominal pain. Continued diarrhea since drinking GoLYTELY for procedure. Objective Vitals I&O Vital Signs Date Time Temp Pulse Resp B/P (MAP) Pulse Ox O2 Delivery O2 Flow Rate FiO2 11/06/17 08:00 97.9 90 19 113/79 (90) 99 11/06/17 07:56 94 21 11/06/17 04:45 98.2 88 20 123/73 (90) 98 11/06/17 00:22 98.6 122 20 162/81 (108) 95 11/05/17 21:46 97 11/05/17 20:00 98.5 105 20 155/98 (117) 100 11/05/17 15:36 97.7 87 20 132/91 (105) 100 11/05/17 14:10 100 11/05/17 12:52 97.7 75 16 116/75 (89) 100 I/O 11/05/17 11/05/17 11/05/17 11/06/17 11/06/17 11/06/17 07:00 15:00 23:00 07:00 15:00 23:00 Intake Total 460 ml Balance 460 ml Intake Oral 460 ml # Voids 3 3 # Bowel Movements 1 Laboratory Laboratory Tests Test 11/06/17 07:25 Vancomycin Level Trough 3.8 Date/Time Source Procedure Growth Status 10/29/17 21:50 Blood Peripheral Aerobic Blood Culture - Final NO GROWTH IN 5 DAYS Complete 10/29/17 21:50 Blood Peripheral Anaerobic Blood Culture - Final NO GROWTH IN 5 DAYS Complete 11/01/17 17:30 Stool Stool Cryptosporidium Exam - Final NEGATIVE - NO CRYPTOSPORIDIUM ANTIGEN... Complete 11/01/17 17:30 Stool Stool Stool Pus (JACOB) - Final Complete 11/01/17 17:30 Stool Stool Giardia Antigen (JACOB) - Final NEGATIVE - NO GIARDIA ANTIGEN DETECTE... Complete 10/31/17 16:35 Urine Clean Catch Urine Culture - Final NO GROWTH IN 48 HOURS. Complete Imaging Last Impressions Ankle X-Ray 11/02/17 0000 Signed Impressions: Service Date/Time: Thursday, November 02, 2017 08:47 - CONCLUSION: 1. Small ulcer in the heel region without significant subcutaneous emphysema, radiopaque foreign body or bony erosive change. Lenny Dee MD Abdomen/Pelvis CT 11/01/17 0000 Signed Impressions: Service Date/Time: Wednesday, November 01, 2017 21:16 - CONCLUSION: 1. No acute findings on abdomen and pelvic CT. Kevin Wells MD Lower Extremity CT 10/29/17 0000 Signed Impressions: Service Date/Time: Sunday, October 29, 2017 23:14 - CONCLUSION: Mild diffuse subcutaneous edema as above. No abscess. Juan Walker MD Physical Exam HEENT: Normocephalic; atraumatic CHEST: CTA CARDIAC: RRR ABDOMEN: Soft, nondistended, nontender; no hepatosplenomegaly; bowel sounds active x 4. EXTREMITIES: No clubbing, cyanosis, necrotic skin right ankle. CHILDREN'S AIDE: No focal deficits; alert and oriented times three. Assessment and Plan Assessment: (1) Cocaine abuse ICD Codes: F14.10 - Cocaine abuse, uncomplicated (2) Nausea & vomiting ICD Codes: R11.2 - Nausea with vomiting, unspecified (3) Diarrhea ICD Codes: R19.7 - Diarrhea, unspecified (4) Hepatitis C ICD Codes: B19.20 - Unspecified viral hepatitis C without hepatic coma (5) Crohn's disease ICD Codes: K50.90 - Crohn's disease, unspecified, without complications Plan Assessment: - Diarrhea- Stool studies and C. Diff negative. Continued diarrhea since taking GoLYTELY. Colonoscopy (11/05) --> Prep was suboptimal but copious washing was performed. No polyps or tumor were seen. Mild diverticulosis. Tortuous colon. No bleeding sites seen. - Nausea/vomiting/weight loss- EGD (11/02) --> Normal EGD. Pt reported history of Crohns disease, not on medical management, reports diagnosis approx 15 years ago. No evidence on EGD or colonoscopy. AMIE negative. CT abdomen/pelvis (11/01) --> No acute findings on CT. PLAN - Continue current supportive care - Will add Cholestyramine 4gm daily as needed for continued diarrhea This pt has been seen and examined by myself and Dr. Galvan and this note is written on his behalf Problem Qualifiers (1) Hepatitis C: Qualified Codes: B18.2 - Chronic viral hepatitis C Day Arias [facility] Nov 06, 2017 11:44
[2017-11-06] MEDS: SILVER SULFADIAZINE 1% CR 400 GM JAR TOPICAL SCH (12:00)
[2017-11-06] MEDS: VANCOMYCIN INJ 750 MG in SODIUM CHLOR 0.9% 250 ML INJ 250 ML IV SCH ×2 (12:28→21:03)
--- NOTE | 2017-11-06 15:36 | HHI.IDPN ---
Note Infectious Disease Note ID Coverage: Notes reviewed. Patient notes that she feels okay. She had developed itchy rash at the thighs and lower abdomen 2 days ago and cefepime was stopped. Notes itching at the legs. Rash has resolved. Afebrile. Colonoscopy show no evidence of chron's disease. Previous large purpuric patches with surrounding erythema at the legs are now drying and forming necrotic scabs. 2D ECHO without signs of endocarditis. Past Family Social History Allergies: Coded Allergies: codeine (Verified Allergy, Severe, 10/29/17) ketorolac (Verified Allergy, Severe, 10/29/17) penicillin G (Verified Allergy, Intermediate, Rash, 10/30/17) Past Medical History Crohn's disease per history Hepatitis C treatment melissa Recurrent cellulitis Past Surgical History Appendectomy Hysterectomy ? Some bowel surgery for Crohn's Reported Medications Reported Meds & Active Scripts Active No Active Prescriptions or Reported Medications Active Ordered Medications Current Medications Medications (Trade) Dose Ordered Sig/Malgorzata Route PRN Reason Start Time Stop Time Status Last Admin Dose Admin Sodium Chloride (NS Flush) 2 ml UNSCH PRN IV FLUSH FLUSH AFTER USING IV ACCESS 10/30/17 00:15 Sodium Chloride (NS Flush) 2 ml BID IV FLUSH 10/30/17 09:00 11/06/17 09:34 Acetaminophen (Tylenol) 650 mg Q4H PRN PO FEVER 10/30/17 00:15 Ondansetron HCl (Zofran Inj) 4 mg Q6H PRN IVP NAUSEA OR VOMITING 10/30/17 00:15 11/05/17 06:36 Heparin Sodium (Porcine) (Heparin Inj) 5,000 units Q12H SQ 10/30/17 00:15 11/04/17 00:53 Naloxone HCl (Narcan Inj) 0.4 mg UNSCH PRN IV PUSH SEE LABEL COMMENTS 10/30/17 00:15 Senna/Docusate Sodium (Damari-Colace) 1 tab BID PO 10/30/17 09:00 Magnesium Hydroxide (Milk Of Magnesia Liq) 30 ml Q12H PRN PO Mild constipation 10/30/17 00:15 Sennosides (Senokot) 17.2 mg Q12H PRN PO Moderate constipation 10/30/17 00:15 Bisacodyl (Dulcolax Supp) 10 mg DAILY PRN RECTAL SEVERE CONSITIPATION 10/30/17 00:15 Lactulose (Lactulose Liq) 30 ml DAILY PRN PO SEVERE CONSITIPATION 10/30/17 00:15 Pharmacy Profile Note 0 ml @ 0 mls/hr UNSCH OTHER 10/30/17 00:15 Oxycodone/ Acetaminophen (Percocet 5-325 Mg) 1 tab Q4H PRN PO PAIN SCALE 1 TO 5 10/30/17 19:45 Oxycodone/ Acetaminophen (Percocet 5-325 Mg) 2 tab Q4H PRN PO PAIN SCALE 6 TO 10 10/30/17 19:45 11/06/17 14:16 Morphine Sulfate (Morphine Inj) 2 mg Q4H PRN IV PUSH BREAKTHROUGH PAIN 11/04/17 07:30 11/06/17 15:18 Prednisone (Deltasone) 20 mg BID PO 11/04/17 13:45 11/06/17 09:31 Lactated Ringer's 1,000 ml @ 30 mls/hr Q24H PRN IV SEE LABEL COMMENTS 11/05/17 03:15 11/08/17 03:14 11/05/17 11:05 Povidone Iodine (Betadine 5% Antisepsis Kit) 1 applic HYDROLOGIC MODELER PRN EACH NARE SEE LABEL COMMENTS 11/05/17 03:15 11/08/17 03:14 Chlorhexidine Gluconate (Chlorhexidine 2% Cloth) 3 pack HYDROLOGIC MODELER PRN TOPICAL SEE LABEL COMMENTS 11/05/17 03:15 11/08/17 03:14 Vancomycin HCl 750 mg/Sodium Chloride 257.5 ml @ 250 mls/hr Q8H IV 11/06/17 12:00 11/06/17 12:28 Miscellaneous Information SPECIFIC LAB TO BE SURY... ONCE ONCE .XX 11/07/17 11:45 11/07/17 11:46 Cholestyramine Resin (Questran 4 Gm Pkt) 4 gm DAILY PO 11/07/17 09:00 Silver Sulfadiazine (Silvadene 1% Cream (400 Gm)) 1 applic DAILY TOPICAL 11/06/17 12:00 Social History per record. reports her 1 year back. She denies IVDA but records indicate she admitted to RN at that hospital "used synthetic IV drugs" Drug screen positive for Cocaine. Smokes 1 ppd or more for many years. Does not want to quit. Counseled for 15 mins. Denies alcohol. Physical Exam OBJECTIVE: Vital Signs Date Time Temp Pulse Resp B/P (MAP) Pulse Ox O2 Delivery O2 Flow Rate FiO2 11/06/17 12:00 98.0 115 18 146/93 (110) 98 11/06/17 08:00 97.9 90 19 113/79 (90) 99 11/06/17 07:56 94 21 11/06/17 04:45 98.2 88 20 123/73 (90) 98 11/06/17 00:22 98.6 122 20 162/81 (108) 95 11/05/17 21:46 97 11/05/17 20:00 98.5 105 20 155/98 (117) 100 11/05/17 15:36 97.7 87 20 132/91 (105) 100 Laboratory Tests Test 11/05/17 05:10 Creatinine 0.48 MG/DL Estimat Glomerular Filtration Rate 140 ML/MIN Microbiology Date/Time Source Procedure Growth Status 11/01/17 17:30 Stool Stool Cryptosporidium Exam - Final NEGATIVE - NO CRYPTOSPORIDIUM ANTIGEN... Complete 11/01/17 17:30 Stool Stool Stool Pus (JACOB) - Final Complete 11/01/17 17:30 Stool Stool Giardia Antigen (JACOB) - Final NEGATIVE - NO GIARDIA ANTIGEN DETECTE... Complete 11/01/17 17:30 Stool Stool - Final NO ENTERIC PATHOGENS DETECTED BY PCR... Complete GENERAL: Patient is in no acute distress. HEENT: NIKKO. EOMI, No icterus. NECK: Supple. No adenopathy. LUNGS: Clear breath sounds. CARDIAC: Regular rate and rhythm ABDOMEN: Soft, non tender. EXTREMITIES: No CCE. large necrotic scabbed patches at the legs. No new lesions. SKIN: No diffuse rash. NEUROLOGIC: Non focal. Assessment and Plan Assessment and Plan Cellulitis bilateral LE associated vasculitic changes. Heel with vasculitis changes. 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 Possible Endocarditis but these lesions don't look like septic emboli as they are on the ears bilaterally. Hepatitis C (can cause cryoglobulinemia) IVDA per records at Blood cultures pending from need to be followed. Penicillin allergy: rash, N/V. Developed rash with Cefepime. Skin lesions are improving. Continue prednisone. 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 Reordered for am. Blood cultures from [facility] are negative. Sean Julien MD Nov 06, 2017 15:36
[2017-11-06] MEDS: diphenhydrAMINE HCL 25 MG CAP PO PRN ×2 (16:13→21:02)
--- NOTE | 2017-11-06 16:29 | RADRPT ---
EXAM DATE/TIME: 11/06/2017 14:39 [place] COMPARISON: No previous studies available for comparison. INDICATIONS : Osteomyelitis. MEDICAL HISTORY : None. SURGICAL HISTORY : Hysterectomy. Appendectomy. ENCOUNTER: Initial ACUITY: 1 day PAIN SCORE: 5/10 LOCATION: Left ankle TECHNIQUE: Multiplanar, multisequence MRI examination was performed without contrast. FINDINGS: There is focal marrow edema at the lateral malleolus on the T2-weighted sequences. This is not associ ated with any significant signal abnormality on T1. This makes osteomyelitis less likely. A small ank le joint effusion. Tendons and ligaments appear intact. Ankle mortise is intact. No fracture identifi ed. CONCLUSION: 1. No definite evidence for osteomyelitis. Mild focal marrow edema at the lateral malleolus posterior ly. Trace joint fluid. No tendon rupture. Kevin Wells MD on November 06, 2017 at 16:23 Board Certified Radiologist. This report was verified electronically.
--- NOTE | 2017-11-06 19:57 | HHI.PR ---
Subjective Remarks Pt. mostly complains of pain in her ankles, and shows me large healing areas of denuded skin. She is glad to hear her colonoscopy did not show active Crohn's disease. Objective Vital Signs Date Time Temp Pulse Resp B/P (MAP) Pulse Ox O2 Delivery O2 Flow Rate FiO2 11/06/17 16:00 97.9 80 19 132/76 (94) 97 11/06/17 12:00 98.0 115 18 146/93 (110) 98 11/06/17 11:39 17 11/06/17 08:00 97.9 90 19 113/79 (90) 99 11/06/17 07:56 94 21 11/06/17 04:45 98.2 88 20 123/73 (90) 98 11/06/17 00:22 98.6 122 20 162/81 (108) 95 11/05/17 21:46 97 11/05/17 20:00 98.5 105 20 155/98 (117) 100 I/O 11/05/17 11/05/17 11/05/17 11/06/17 11/06/17 11/06/17 07:00 15:00 23:00 07:00 15:00 23:00 Intake Total 460 ml 480 ml Balance 460 ml 480 ml Intake Oral 460 ml 480 ml # Voids 3 3 2 # Bowel Movements 1 1 Result Diagram: 11/04/17 0544 11/05/17 0510 Objective Remarks GENERAL: Thin woman, alert, oriented, appropriate SKIN: Warm and dry. HEAD: Normocephalic. EYES: No scleral icterus. No injection or drainage. NECK: Supple, trachea midline. No JVD or lymphadenopathy. CARDIOVASCULAR: Regular rate and rhythm without murmurs, gallops, or rubs. RESPIRATORY: Breath sounds equal bilaterally. No accessory muscle use. GASTROINTESTINAL: Abdomen soft, non-tender, nondistended. MUSCULOSKELETAL: No cyanosis, or edema. BACK: Nontender without obvious deformity. No CVA tenderness. EXTREMITIES: large areas of scabs and deflated blisters overlying raw skin on both ankles that look similar to a healing 3rd degree burn. Scabs are dry and pulling from edges. No erythema or edema. Assessment and Plan Problem List: (1) Cellulitis of leg, left ICD Codes: L03.116 - Cellulitis of left lower limb Status: Acute (2) Cellulitis of leg, right ICD Codes: L03.115 - Cellulitis of right lower limb Status: Acute (3) Hepatitis C ICD Codes: B19.20 - Unspecified viral hepatitis C without hepatic coma Assessment and Plan Cellulitis of both extremities - Vasculitis may have been underlying cause based on quality of ulcerations - Continue Vancomycin - Cefepime stopped due to drug reaction - Appreciate podiatry and vascular surgery consult - Appreciate wound care - Silvadene cream added due to dry quality of scabs and edges beginning to tear h/o Crohn's Disease - Colonoscopy showed no active disease h/o Hep C - no change in therapy DVT Prophylaxis - Sub Q Heparin Discharge planning - She will need outpatient wound care, will discuss with case management - ID to recommend antibiotic course based on cultures Problem Qualifiers (1) Hepatitis C: Qualified Codes: B18.2 - Chronic viral hepatitis C Naresh Kruse MD Nov 06, 2017 19:57
--- NOTE | 2017-11-06 23:33 | HHI.PR ---
Subjective Remarks Patient seen bedside. States her legs are improving with painful and she has noticed improvement. Reports improving pain to left ankle. Objective Vital Signs Date Time Temp Pulse Resp B/P (MAP) Pulse Ox O2 Delivery O2 Flow Rate FiO2 11/06/17 20:00 97.9 79 19 131/83 (99) 96 11/06/17 16:00 97.9 80 19 132/76 (94) 97 11/06/17 12:00 98.0 115 18 146/93 (110) 98 11/06/17 11:39 17 11/06/17 08:00 97.9 90 19 113/79 (90) 99 11/06/17 07:56 94 21 11/06/17 04:45 98.2 88 20 123/73 (90) 98 11/06/17 00:22 98.6 122 20 162/81 (108) 95 I/O 11/06/17 11/06/17 11/06/17 11/07/17 11/07/17 11/07/17 07:00 15:00 23:00 07:00 15:00 23:00 Intake Total 480 ml Balance 480 ml Intake Oral 480 ml # Voids 3 2 # Bowel Movements 1 1 Result Diagram: 11/04/17 0544 11/05/17 0510 Imaging Last 72 hours Impressions Ankle MRI 11/06/17 0000 Signed Impressions: Service Date/Time: Monday, November 06, 2017 14:39 - CONCLUSION: 1. No definite evidence for osteomyelitis. Mild focal marrow edema at the lateral malleolus posteriorly. Trace joint fluid. No tendon rupture. Kevin Wells MD Other Results Laboratory Tests Test 11/05/17 05:10 11/06/17 07:25 Creatinine 0.48 MG/DL Estimat Glomerular Filtration Rate 140 ML/MIN Vancomycin Level Trough 3.8 MCG/ML Objective Remarks Vasc: DP/PT 2/4 bilaterally. POWER PLANT MECHANIC under 3 secs to bilateral LE. No edema noted to bilateral LE. Neuro: Gross sensation intact. No hyperalgesia noted to bilateral LE. Derm: Bilateral LE purpura with ischemic ulcers encompassion over 50% of bilateral LE. Eschars noted with demarcation improvement noted to lesions. Mild damari eschar erythema noted. No drainage noted to bilateral LE lesions. Left lateral ankle blood blister resolving and improvement noted. MSK: Pain on palpation to bilateral LE. Decreased ROM noted to left ankle - improvement noted. Decreasing edema and erythema noted to left ankle. Pain on palpation to anterior ankle. Medications and IVs Current Medications Medications (Trade) Dose Ordered Sig/Malgorzata Route Start Time Stop Time Status Last Admin (NS Flush) 2 ml UNSCH PRN IV FLUSH 10/30/17 00:15 (NS Flush) 2 ml BID IV FLUSH 10/30/17 09:00 11/06/17 21:04 (Tylenol) 650 mg Q4H PRN PO 10/30/17 00:15 (Zofran Inj) 4 mg Q6H PRN IVP 10/30/17 00:15 11/05/17 06:36 (Heparin Inj) 5,000 units Q12H SQ 10/30/17 00:15 11/04/17 00:53 (Narcan Inj) 0.4 mg UNSCH PRN IV PUSH 10/30/17 00:15 (Damari-Colace) 1 tab BID PO 10/30/17 09:00 (Milk Of Magnesia Liq) 30 ml Q12H PRN PO 10/30/17 00:15 (Senokot) 17.2 mg Q12H PRN PO 10/30/17 00:15 (Dulcolax Supp) 10 mg DAILY PRN RECTAL 10/30/17 00:15 (Lactulose Liq) 30 ml DAILY PRN PO 10/30/17 00:15 Pharmacy Profile Note 0 ml @ 0 mls/hr UNSCH OTHER 10/30/17 00:15 (Percocet 5-325 Mg) 1 tab Q4H PRN PO 10/30/17 19:45 (Percocet 5-325 Mg) 2 tab Q4H PRN PO 10/30/17 19:45 11/06/17 22:11 (Morphine Inj) 2 mg Q4H PRN IV PUSH 11/04/17 07:30 11/06/17 19:35 (Deltasone) 20 mg BID PO 11/04/17 13:45 11/06/17 21:02 Lactated Ringer's 1,000 ml @ 30 mls/hr Q24H PRN IV 11/05/17 03:15 11/08/17 03:14 11/05/17 11:05 (Betadine 5% Antisepsis Kit) 1 applic AS400 PROGRAMMER PRN EACH NARE 11/05/17 03:15 11/08/17 03:14 (Chlorhexidine 2% Cloth) 3 pack AS400 PROGRAMMER PRN TOPICAL 11/05/17 03:15 11/08/17 03:14 Vancomycin HCl 750 mg/Sodium Chloride 257.5 ml @ 250 mls/hr Q8H IV 11/06/17 12:00 11/06/17 21:03 Miscellaneous Information SPECIFIC LAB TO BE SURY... ONCE ONCE .XX 11/07/17 11:45 11/07/17 11:46 (Questran 4 Gm Pkt) 4 gm DAILY PO 11/07/17 09:00 (Silvadene 1% Cream (400 Gm)) 1 applic DAILY TOPICAL 11/06/17 12:00 (Benadryl) 25 mg Q6H PRN PO 11/06/17 15:30 11/06/17 21:02 Assessment and Plan Assessment and Plan 42 year old female with bilateral skin necrosis/ulcers Patient evaluated and treated with all questions answered Ok to proceed with santyl to left lateral heel, Anterior tibial ulcer; Right medial heel ulcer and anterior leg ulcer. Apply nickel thick and only to areas with demarcated eschar. Dressed left lateral ankle with DSD MRI reviewed Please reconsult of there are any changes Steph Zhou DPM Nov 06, 2017 23:33
[2017-11-07] VITALS: BP 144/91; PULSE 76; RESP 18; TEMP 97.9; O2SAT 97
[2017-11-07] MEDS: HEPARIN SODIUM - SQ 10,000 UNITS/ML VIAL SQ SCH ×3 (00:15→23:34)
[2017-11-07] MEDS: oxyCODONE/ACETAMINOPHEN 5 MG/325 MG TAB PO PRN ×5 (02:38→20:18)
[2017-11-07 04:00] VITALS: BP 139/91; PULSE 66; RESP 18; TEMP 98; O2SAT 98
[2017-11-07] MEDS: MORPHINE SULFATE 2 MG/ML INJ IV PUSH PRN ×4 (04:32→22:45)
[2017-11-07] MEDS: VANCOMYCIN INJ 750 MG in SODIUM CHLOR 0.9% 250 ML INJ 250 ML IV SCH ×3 (04:33→20:18)
[2017-11-07] MEDS: diphenhydrAMINE HCL 25 MG CAP PO PRN ×4 (04:41→22:44)
[2017-11-07 08:00] VITALS: BP 144/89; PULSE 82; RESP 18; TEMP 98; O2SAT 97
[2017-11-07] MEDS: DOCUSATE SODIUM 50 MG/SENNA 8.6 MG TAB PO SCH ×2 (09:00→20:19)
[2017-11-07] MEDS: SODIUM CHLORIDE 0.9% FLUSH 10 ML FLUSH IV FLUSH SCH ×2 (09:00→20:18)
[2017-11-07] MEDS ORDERED: MORPHINE SULFATE 2 MG/ML INJ IM ONE (09:30)
[2017-11-07] MEDS: CHOLESTYRAMINE 4 GM PACKET PO SCH (10:09)
[2017-11-07] MEDS: SILVER SULFADIAZINE 1% CR 400 GM JAR TOPICAL SCH (10:09)
[2017-11-07] MEDS: predniSONE 20 MG TAB PO SCH ×2 (10:09→20:18)
[2017-11-07] MEDS ORDERED: PHARMACY ORDERED LAB ONE ×2 (11:45→19:45)
--- NOTE | 2017-11-07 13:05 | HHI.GIFU ---
Subjective Remarks Lying in bed, in no apparent distress. Tolerating diet. Reports intermittent abdominal cramping. Continues to have diarrhea, but states this is improving. Objective Vitals I&O Vital Signs Date Time Temp Pulse Resp B/P (MAP) Pulse Ox O2 Delivery O2 Flow Rate FiO2 11/07/17 08:00 98.0 82 18 144/89 (107) 97 11/07/17 07:31 18 11/07/17 04:00 98.0 66 18 139/91 (107) 98 11/07/17 00:00 97.9 76 18 144/91 (108) 97 11/06/17 20:00 97.9 79 19 131/83 (99) 96 11/06/17 16:00 97.9 80 19 132/76 (94) 97 I/O 11/06/17 11/06/17 11/06/17 11/07/17 11/07/17 11/07/17 06:59 14:59 22:59 06:59 14:59 22:59 Intake Total 480 ml Balance 480 ml Intake Oral 480 ml # Voids 3 4 2 # Bowel Movements 1 1 0 Laboratory Laboratory Tests Test 11/07/17 06:37 Creatinine 0.52 Estimat Glomerular Filtration Rate 128 Date/Time Source Procedure Growth Status 10/29/17 21:50 Blood Peripheral Aerobic Blood Culture - Final NO GROWTH IN 5 DAYS Complete 10/29/17 21:50 Blood Peripheral Anaerobic Blood Culture - Final NO GROWTH IN 5 DAYS Complete 11/01/17 17:30 Stool Stool Cryptosporidium Exam - Final NEGATIVE - NO CRYPTOSPORIDIUM ANTIGEN... Complete 11/01/17 17:30 Stool Stool Stool Pus (JACOB) - Final Complete 11/01/17 17:30 Stool Stool Giardia Antigen (JACOB) - Final NEGATIVE - NO GIARDIA ANTIGEN DETECTE... Complete 10/31/17 16:35 Urine Clean Catch Urine Culture - Final NO GROWTH IN 48 HOURS. Complete Imaging Last Impressions Ankle MRI 11/06/17 0000 Signed Impressions: Service Date/Time: Monday, November 06, 2017 14:39 - CONCLUSION: 1. No definite evidence for osteomyelitis. Mild focal marrow edema at the lateral malleolus posteriorly. Trace joint fluid. No tendon rupture. Kevin Wells MD Ankle X-Ray 11/02/17 0000 Signed Impressions: Service Date/Time: Thursday, November 02, 2017 08:47 - CONCLUSION: 1. Small ulcer in the heel region without significant subcutaneous emphysema, radiopaque foreign body or bony erosive change. Lenny Dee MD Abdomen/Pelvis CT 11/01/17 0000 Signed Impressions: Service Date/Time: Wednesday, November 01, 2017 21:16 - CONCLUSION: 1. No acute findings on abdomen and pelvic CT. Kevin Wells MD Lower Extremity CT 10/29/17 0000 Signed Impressions: Service Date/Time: Sunday, October 29, 2017 23:14 - CONCLUSION: Mild diffuse subcutaneous edema as above. No abscess. Juan Walker MD Physical Exam HEENT: Normocephalic; atraumatic CHEST: CTA CARDIAC: RRR ABDOMEN: Soft, nondistended, nontender; no hepatosplenomegaly; bowel sounds active x 4. EXTREMITIES: No clubbing, cyanosis, necrotic skin right ankle. ENTRY LEVEL RECEPTIONIST: No focal deficits; alert and oriented times three. Assessment and Plan Assessment: (1) Cocaine abuse ICD Codes: F14.10 - Cocaine abuse, uncomplicated (2) Nausea & vomiting ICD Codes: R11.2 - Nausea with vomiting, unspecified (3) Diarrhea ICD Codes: R19.7 - Diarrhea, unspecified (4) Hepatitis C ICD Codes: B19.20 - Unspecified viral hepatitis C without hepatic coma (5) Crohn's disease ICD Codes: K50.90 - Crohn's disease, unspecified, without complications Plan ASSESSMENT: - Diarrhea- Stool studies and C. Diff negative. Continued diarrhea since taking GoLYTELY. Colonoscopy (11/05) --> Prep was suboptimal but copious washing was performed. No polyps or tumor were seen. Mild diverticulosis. Tortuous colon. No bleeding sites seen. - Nausea/vomiting/weight loss- EGD (11/02) --> Normal EGD. Pt reported history of Crohns disease, not on medical management, reports diagnosis approx 15 years ago. No evidence on EGD or colonoscopy. AMIE negative. CT abdomen/pelvis (11/01) --No acute findings on CT. 11/07/17--Reports continued diarrhea, but improving. Has mild abdominal cramping , intermittent. PLAN: - Continue current supportive care - Cholestyramine 4gm daily as needed for continued diarrhea - Patient stable from GI standpoint, will sign off. Please re-consult as needed. Patient seen and examined by Dr. Galvan and myself and this note is written on his behalf. Problem Qualifiers (1) Hepatitis C: Qualified Codes: B18.2 - Chronic viral hepatitis C Rhoda Farmer Nov 07, 2017 13:05
--- NOTE | 2017-11-07 15:28 | HHI.PR ---
Subjective Remarks Pt. complains of tight skin on ulceration scars/scabs that are healing following vasculitis/cellulitis. She is ambulatory. Objective Vital Signs Date Time Temp Pulse Resp B/P (MAP) Pulse Ox O2 Delivery O2 Flow Rate FiO2 11/07/17 08:00 98.0 82 18 144/89 (107) 97 11/07/17 07:31 18 11/07/17 04:00 98.0 66 18 139/91 (107) 98 11/07/17 00:00 97.9 76 18 144/91 (108) 97 11/06/17 20:00 97.9 79 19 131/83 (99) 96 11/06/17 16:00 97.9 80 19 132/76 (94) 97 I/O 11/06/17 11/06/17 11/06/17 11/07/17 11/07/17 11/07/17 07:00 15:00 23:00 07:00 15:00 23:00 Intake Total 480 ml Balance 480 ml Intake Oral 480 ml # Voids 3 4 2 # Bowel Movements 1 1 0 Result Diagram: 11/04/17 0544 11/07/17 0637 Objective Remarks GENERAL: Thin woman, alert, oriented, appropriate SKIN: Warm and dry. HEAD: Normocephalic. EYES: No scleral icterus. No injection or drainage. NECK: Supple, trachea midline. No JVD or lymphadenopathy. CARDIOVASCULAR: Regular rate and rhythm without murmurs, gallops, or rubs. RESPIRATORY: Breath sounds equal bilaterally. No accessory muscle use. GASTROINTESTINAL: Abdomen soft, non-tender, nondistended. MUSCULOSKELETAL: No cyanosis, or edema. BACK: Nontender without obvious deformity. No CVA tenderness. EXTREMITIES: large areas of scabs and deflated blisters overlying raw skin on both ankles that look similar to a healing 3rd degree burn. Scabs are dry and pulling from edges. No erythema or edema. Assessment and Plan Problem List: (1) Cellulitis of leg, left ICD Codes: L03.116 - Cellulitis of left lower limb Status: Acute (2) Cellulitis of leg, right ICD Codes: L03.115 - Cellulitis of right lower limb Status: Acute (3) Hepatitis C ICD Codes: B19.20 - Unspecified viral hepatitis C without hepatic coma Assessment and Plan Cellulitis of both extremities - Vasculitis may have been underlying cause based on quality of ulcerations - Continue Vancomycin - Cefepime stopped due to drug reaction - Appreciate podiatry and vascular surgery consult - Silvadene cream to moisten scars and reduce risk of infection h/o Crohn's Disease - Colonoscopy showed no active disease h/o Hep C - no change in therapy DVT Prophylaxis - Sub Q Heparin Discharge planning - She will need outpatient wound care, will discuss with case management - ID to recommend antibiotic course based on cultures - Likely discharge on Wednesday Problem Qualifiers (1) Hepatitis C: Qualified Codes: B18.2 - Chronic viral hepatitis C Naresh Kruse MD Nov 07, 2017 15:28
[2017-11-07 16:00] VITALS: BP 139/93; PULSE 91; RESP 18; TEMP 97.6; O2SAT 99
[2017-11-07 20:14] VITALS: BP 133/86; PULSE 86; RESP 20; TEMP 98.1; O2SAT 97
[2017-11-08] VITALS (7 sets, daily range): BP systolic 133–171; BP diastolic 85–104; PULSE 79–92; RESP 18–20; TEMP 97.7–98.5; O2SAT 96–99
[2017-11-08] MEDS: oxyCODONE/ACETAMINOPHEN 5 MG/325 MG TAB PO PRN ×6 (00:30→20:42)
[2017-11-08] MEDS: MORPHINE SULFATE 2 MG/ML INJ IV PUSH PRN ×6 (02:49→23:22)
[2017-11-08] MEDS: VANCOMYCIN INJ 750 MG in SODIUM CHLOR 0.9% 250 ML INJ 250 ML IV SCH ×2 (03:03→12:56)
[2017-11-08] MEDS: diphenhydrAMINE HCL 25 MG CAP PO PRN ×3 (06:41→20:42)
[2017-11-08] MEDS: DOCUSATE SODIUM 50 MG/SENNA 8.6 MG TAB PO SCH ×2 (09:00→20:42)
[2017-11-08] MEDS: CHOLESTYRAMINE 4 GM PACKET PO SCH (09:00)
[2017-11-08] MEDS: SODIUM CHLORIDE 0.9% FLUSH 10 ML FLUSH IV FLUSH SCH ×2 (09:00→20:42)
[2017-11-08] MEDS: predniSONE 20 MG TAB PO SCH ×2 (09:00→20:42)
[2017-11-08] MEDS: SILVER SULFADIAZINE 1% CR 400 GM JAR TOPICAL SCH (09:01)
[2017-11-08 11:42] LABS: AUTOMATED NEUTROPHIL # 6.6 TH/MM3 (1.8-7.7); BASOPHIL % 0.2 % (0.0-2.0); EOSINOPHIL % 0.4 % (0.0-4.0); HEMATOCRIT 31.4 % (35.0-46.0); HEMO FLAGS DIFF FINAL; LYMPH % 14.8 % (9.0-44.0); LYMPHOCYTE # 1.3 TH/MM3 (1.0-4.8); MEAN CELL VOLUME 80.8 FL (80.0-100.0); MEAN CORPUSCULAR HEMOGLOBIN 27.3 PG (27.0-34.0); MEAN CORPUSCULAR HGB CONC 33.7 % (32.0-36.0); MONO % 8.5 % (0.0-8.0); NEUT % 76.1 % (16.0-70.0); PLATELET COUNT 425 TH/MM3 (150-450); RED BLOOD COUNT 3.88 MIL/MM3 (4.00-5.30); RED CELL DISTRIBUTION WIDTH 16.1 % (11.6-17.2); WHITE BLOOD COUNT 8.7 TH/MM3 (4.0-11.0)
[2017-11-08] MEDS ORDERED: PHARMACY ORDERED LAB ONE (11:45)
[2017-11-08] MEDS: HEPARIN SODIUM - SQ 10,000 UNITS/ML VIAL SQ SCH (12:15)
[2017-11-08 12:46] LABS: BACTERIA, URINE OCC /hpf; BLOOD, URINE MOD (NEG); COMMENT (UR) CULT NOT INDICATED; CULTURE IF INDICATED CULT NOT INDICATED; GLUCOSE,URINE NEG (NEG); KETONE, URINE NEG (NEG); MUCUS URINE FEW /lpf (OCC); NITRITE,URINE NEG (NEG); PH, URINE 5.5 (5.0-8.5); SQUAMOUS EPITHELIAL CELL URINE 1 /hpf (0-5); URINE COLOR LIGHT-YELLOW (YELLW/STRAW)
--- NOTE | 2017-11-08 15:11 | HHI.IDPN ---
Note Infectious Disease Note ID Coverage: Notes reviewed. Patient notes that she feels okay. No itching. Afebrile Rash has resolved. . Colonoscopy show no evidence of chron's disease. Previous large purpuric patches with surrounding erythema at the legs became dry and are being treated with Silverdene cream. 2D ECHO without signs of endocarditis. Past Family Social History Allergies: Coded Allergies: codeine (Verified Allergy, Severe, 10/29/17) ketorolac (Verified Allergy, Severe, 10/29/17) penicillin G (Verified Allergy, Intermediate, Rash, 10/30/17) Past Medical History Crohn's disease per history Hepatitis C treatment melissa Recurrent cellulitis Past Surgical History Appendectomy Hysterectomy ? Some bowel surgery for Crohn's Reported Medications Reported Meds & Active Scripts Active No Active Prescriptions or Reported Medications Active Ordered Medications Current Medications Medications (Trade) Dose Ordered Sig/Malgorzata Route PRN Reason Start Time Stop Time Status Last Admin Dose Admin Sodium Chloride (NS Flush) 2 ml UNSCH PRN IV FLUSH FLUSH AFTER USING IV ACCESS 10/30/17 00:15 Sodium Chloride (NS Flush) 2 ml BID IV FLUSH 10/30/17 09:00 11/08/17 09:00 Acetaminophen (Tylenol) 650 mg Q4H PRN PO FEVER 10/30/17 00:15 Ondansetron HCl (Zofran Inj) 4 mg Q6H PRN IVP NAUSEA OR VOMITING 10/30/17 00:15 11/05/17 06:36 Heparin Sodium (Porcine) (Heparin Inj) 5,000 units Q12H SQ 10/30/17 00:15 11/07/17 12:22 Naloxone HCl (Narcan Inj) 0.4 mg UNSCH PRN IV PUSH SEE LABEL COMMENTS 10/30/17 00:15 Senna/Docusate Sodium (Damari-Colace) 1 tab BID PO 10/30/17 09:00 Magnesium Hydroxide (Milk Of Magnesia Liq) 30 ml Q12H PRN PO Mild constipation 10/30/17 00:15 Sennosides (Senokot) 17.2 mg Q12H PRN PO Moderate constipation 10/30/17 00:15 Bisacodyl (Dulcolax Supp) 10 mg DAILY PRN RECTAL SEVERE CONSITIPATION 10/30/17 00:15 Lactulose (Lactulose Liq) 30 ml DAILY PRN PO SEVERE CONSITIPATION 10/30/17 00:15 Pharmacy Profile Note 0 ml @ 0 mls/hr UNSCH OTHER 10/30/17 00:15 Oxycodone/ Acetaminophen (Percocet 5-325 Mg) 1 tab Q4H PRN PO PAIN SCALE 1 TO 5 10/30/17 19:45 Oxycodone/ Acetaminophen (Percocet 5-325 Mg) 2 tab Q4H PRN PO PAIN SCALE 6 TO 10 10/30/17 19:45 11/08/17 12:56 Morphine Sulfate (Morphine Inj) 2 mg Q4H PRN IV PUSH BREAKTHROUGH PAIN 11/04/17 07:30 11/08/17 10:48 Prednisone (Deltasone) 20 mg BID PO 11/04/17 13:45 11/08/17 09:00 Vancomycin HCl 750 mg/Sodium Chloride 257.5 ml @ 250 mls/hr Q8H IV 11/06/17 12:00 11/08/17 12:56 Cholestyramine Resin (Questran 4 Gm Pkt) 4 gm DAILY PO 11/07/17 09:00 11/08/17 09:00 Silver Sulfadiazine (Silvadene 1% Cream (400 Gm)) 1 applic DAILY TOPICAL 11/06/17 12:00 11/08/17 09:01 Diphenhydramine HCl (Benadryl) 25 mg Q6H PRN PO itch 11/06/17 15:30 11/08/17 12:30 Social History per record. reports her 1 year back. She denies IVDA but records indicate she admitted to RN at that hospital "used synthetic IV drugs" Drug screen positive for Cocaine. Smokes 1 ppd or more for many years. Does not want to quit. Counseled for 15 mins. Denies alcohol. Physical Exam OBJECTIVE: Vital Signs Date Time Temp Pulse Resp B/P (MAP) Pulse Ox O2 Delivery O2 Flow Rate FiO2 11/08/17 12:00 97.8 91 18 142/85 (104) 97 11/08/17 08:00 98.3 91 18 171/98 (122) 99 11/08/17 06:39 159/100 (119) 11/08/17 05:07 97.7 79 18 153/104 (120) 98 11/08/17 00:27 98.1 88 20 140/97 (111) 96 11/07/17 20:14 98.1 86 20 133/86 (102) 97 11/07/17 18:32 18 11/07/17 16:50 17 11/07/17 16:00 97.6 91 18 139/93 (108) 99 Laboratory Tests Test 11/08/17 11:12 White Blood Count 8.7 TH/MM3 Red Blood Count 3.88 MIL/MM3 Hemoglobin 10.6 GM/DL Hematocrit 31.4 % Mean Corpuscular Volume 80.8 FL Mean Corpuscular Hemoglobin 27.3 PG Mean Corpuscular Hemoglobin Concent 33.7 % Red Cell Distribution Width 16.1 % Platelet Count 425 TH/MM3 Mean Platelet Volume 7.7 FL Neutrophils (%) (Auto) 76.1 % Lymphocytes (%) (Auto) 14.8 % Monocytes (%) (Auto) 8.5 % Eosinophils (%) (Auto) 0.4 % Basophils (%) (Auto) 0.2 % Neutrophils # (Auto) 6.6 TH/MM3 Lymphocytes # (Auto) 1.3 TH/MM3 Monocytes # (Auto) 0.7 TH/MM3 Eosinophils # (Auto) 0.0 TH/MM3 Basophils # (Auto) 0.0 TH/MM3 CBC Comment DIFF FINAL Differential Comment Laboratory Tests Test 11/07/17 06:37 Creatinine 0.52 MG/DL Estimat Glomerular Filtration Rate 128 ML/MIN PE: GENERAL: Patient is in no acute distress. HEENT: NIKKO. EOMI, No icterus. NECK: Supple. No adenopathy. LUNGS: Clear breath sounds. CARDIAC: Regular rate and rhythm ABDOMEN: Soft, non tender. EXTREMITIES: No CCE. large necrotic scabbed patches at the legs. Silverdene dressing applied. SKIN: No diffuse rash. NEUROLOGIC: Non focal. Assessment and Plan Assessment and Plan Cellulitis bilateral LE associated vasculitic changes. Heel with vasculitis changes. 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 Hepatitis C (can cause cryoglobulinemia) IVDA per records at Penicillin allergy: rash, N/V. Developed rash with Cefepime. Skin lesions are improving. I think that she is responding well to the steroids. Recs Stop Vancomycin. Continue prednisone PO taper. Wound care. She can be discharged from ID standpoint. Sean Julien MD Nov 08, 2017 15:11
--- NOTE | 2017-11-08 18:42 | HHI.PR ---
Subjective Remarks Pt. still has pain with ambulation and request crutches for her discharge. Objective Vital Signs Date Time Temp Pulse Resp B/P (MAP) Pulse Ox O2 Delivery O2 Flow Rate FiO2 11/08/17 16:00 98.5 92 18 133/88 (103) 97 11/08/17 12:00 97.8 91 18 142/85 (104) 97 11/08/17 08:00 98.3 91 18 171/98 (122) 99 11/08/17 06:39 159/100 (119) 11/08/17 05:07 97.7 79 18 153/104 (120) 98 11/08/17 00:27 98.1 88 20 140/97 (111) 96 11/07/17 20:14 98.1 86 20 133/86 (102) 97 I/O 11/07/17 11/07/17 11/07/17 11/08/17 11/08/17 11/08/17 07:00 15:00 23:00 07:00 15:00 23:00 Intake Total 250 ml 1000 ml Balance 250 ml 1000 ml Intake Oral 1000 ml IV Total 250 ml # Voids 2 3 2 # Bowel Movements 0 1 Result Diagram: 11/08/17 1112 11/07/17 0637 Objective Remarks GENERAL: Thin woman, alert, oriented, appropriate SKIN: Warm and dry. HEAD: Normocephalic. EYES: No scleral icterus. No injection or drainage. NECK: Supple, trachea midline. No JVD or lymphadenopathy. CARDIOVASCULAR: Regular rate and rhythm without murmurs, gallops, or rubs. RESPIRATORY: Breath sounds equal bilaterally. No accessory muscle use. GASTROINTESTINAL: Abdomen soft, non-tender, nondistended. MUSCULOSKELETAL: No cyanosis, or edema. BACK: Nontender without obvious deformity. No CVA tenderness. EXTREMITIES: large areas of scabs and deflated blisters overlying raw skin on both ankles that look similar to a healing 3rd degree burn. Wounds have silvadene cream now and are under dressings. Assessment and Plan Problem List: (1) Cellulitis of leg, left ICD Codes: L03.116 - Cellulitis of left lower limb Status: Acute (2) Cellulitis of leg, right ICD Codes: L03.115 - Cellulitis of right lower limb Status: Acute (3) Hepatitis C ICD Codes: B19.20 - Unspecified viral hepatitis C without hepatic coma Assessment and Plan Cellulitis of both extremities, wide wounds - Vasculitis may have been underlying cause based on quality of ulcerations - Cultures were negative, IV antibiotic stopped by ID, recommend PO taper of prednisone - Appreciate podiatry and vascular surgery consult - Silvadene cream to moisten scars and reduce risk of infection h/o Crohn's Disease - Colonoscopy showed no active disease h/o Hep C - no change in therapy DVT Prophylaxis - Sub Q Heparin Discharge planning - Discharge once outpatient wound care follow up is arranged Problem Qualifiers (1) Hepatitis C: Qualified Codes: B18.2 - Chronic viral hepatitis C Naresh Kruse MD Nov 08, 2017 6:42 pm
[2017-11-09] MEDS: HEPARIN SODIUM - SQ 10,000 UNITS/ML VIAL SQ SCH (00:15)
[2017-11-09 00:41] VITALS: BP 153/96; PULSE 99; RESP 19; TEMP 98; O2SAT 97
[2017-11-09] MEDS: oxyCODONE/ACETAMINOPHEN 5 MG/325 MG TAB PO PRN (00:57)
== END 2017-11-09 01:22 | disposition left against medical advice (07) | DRG 603 ==
LOC: NEPC 17:30 → NEDA 10-30 00:05 → N05A 10-30 01:31
PROVIDERS: ADMIT Family Medicine; ATTEND Family Medicine
PROC: 0DJ08ZZ Inspection of Upper Intestinal Tract, Via Natural or Artificial Opening Endoscopic (ICD-10-PCS; principal; 2017-11-02 14:28)
PROC: 0DJD8ZZ Inspection of Lower Intestinal Tract, Via Natural or Artificial Opening Endoscopic (ICD-10-PCS; 2017-11-02 14:28)
PROC: 0DJD8ZZ Inspection of Lower Intestinal Tract, Via Natural or Artificial Opening Endoscopic (ICD-10-PCS; 2017-11-05)
DX: L03.115 Cellulitis of right lower limb (principal); D69.2 Other nonthrombocytopenic purpura; Z68.1 Body mass index [BMI] 19.9 or less, adult; F14.10 Cocaine abuse, uncomplicated; L03.116 Cellulitis of left lower limb; B18.2 Chronic viral hepatitis C; F17.210 Nicotine dependence, cigarettes, uncomplicated; I77.6 Arteritis, unspecified; Z88.0 Allergy status to penicillin; R63.4 Abnormal weight loss; K57.30 Diverticulosis of large intestine without perforation or abscess without bleeding; F41.9 Anxiety disorder, unspecified; T36.1X5A Adverse effect of cephalosporins and other beta-lactam antibiotics, initial encounter; L50.0 Allergic urticaria
CPT/HCPCS: 36415; 73610; 73701; 73721; 74177; 76937; 80048; 80053; 80202; 80307; 81001; 82565; 82595; 82948; 85025; 85598; 85613; 85652; 85730; 86038; 86140; 86160; 86430; 86703; 87015; 87040; 87086; 87205; 87328; 87329; 87338; 87493; 87506; 93005; 93306; 96365; 96375; J0692; J1200; J1644; J2270; J2405; J2543; J3370; J7050; J7120; J7512; Q9963; Q9967

== ENCOUNTER 2017-12-31 10:59 | Inpatient (IN) | payer SELFPAY ==
[~2017-12-31] VITALS: Ht 162.6 cm; Wt 45.0 kg
[2017-12-31] MEDS ORDERED: SODIUM CHLOR 0.9% 1000 ML INJ 800 ML IV ONE (12:03)
[2017-12-31] MEDS ORDERED: AZTREONAM INJ 2,000 MG in SODIUM CHLORIDE 0.9% INJ 100 ML IV STA (12:03)
[2017-12-31] MEDS ORDERED: metroNIDAZOLE 500 MG INJ 100 ML IV STA (12:03)
[2017-12-31] MEDS ORDERED: SODIUM CHLOR 0.9% 1000 ML INJ 1,000 ML IV ONE (12:03)
[2017-12-31] MEDS ORDERED: VANCOMYCIN INJ 1,000 MG in SODIUM CHLOR 0.9% 250 ML INJ 250 ML IV STA (12:03)
[2017-12-31] MEDS ORDERED: MORPHINE SULFATE 2 MG/ML INJ IV PUSH ONE ×2 (12:15→15:45)
[2017-12-31] MEDS ORDERED: ONDANSETRON HCL 4 MG/2 ML VIAL IV PUSH ONE (12:15)
--- NOTE | 2017-12-31 12:17 | PD ---
HPI Chief Complaint: Skin Problem Time Seen by Provider: 11:32 Travel History International Travel<30 days: No Contact w/Intl Traveler<30days: No Traveled to known affect area: No History of Present Illness HPI 42-year-old female with history of asthma, Crohn's, COPD, presents to emergency department for evaluation of wounds on her bilateral lower extremities. Patient was seen, evaluated, and admitted to the hospital in October 2017 for evaluation of lower extremity cellulitis. Patient states then she did have some wounds but they were healing. She was unable to follow-up with any outpatient providers. She states over the last week the wound that were once scabbed over and black and have began to blister and peel off. They're weeping. She reports subjective fever and chills. She states that she feels weak. She reports severe pain in the lower extremities. It is constant. She has no other symptoms to report. PFSH Past Medical History Asthma: Yes (HAVE BEEN TOLD IN THE PAST TO HAVE ASTHMA ) Anxiety: Yes Cancer: Yes (CERVICAL CANCER ) Cardiovascular Problems: No Diminished Hearing: No Endocrine: No Gastrointestinal Disorders: Yes (crohn's) Genitourinary: No Hepatitis: Yes (hep c) Immune Disorder: No Neurologic: No Reproductive: Yes Respiratory: Yes Past Surgical History Abdominal Surgery: Yes (EXPLORATORY LAP) Hysterectomy: Yes Social History Alcohol Use: No Tobacco Use: Yes (/2 PPD) Substance Use: No Allergies-Medications (Allergen,Severity, Reaction): Coded Allergies: codeine (Verified Allergy, Severe, 10/29/17) ketorolac (Verified Allergy, Severe, 10/29/17) penicillin G (Verified Allergy, Intermediate, Rash, 10/30/17) Reported Meds & Prescriptions Reported Meds & Active Scripts Active No Active Prescriptions or Reported Medications Review of Systems Except as stated in HPI: all other systems reviewed are Neg Physical Exam Narrative GENERAL: Disheveled, ill-appearing female patient, lying in bed, in no acute distress. SKIN: Focused skin assessment warm/dry. Multiple skin lesions on the extremities. On the left posterior lateral lower extremity there is a 20 cm x 8 cm open wound with serous drainage and some yellow soft. There is a 10 cm diameter necrotic wound on the left heel. On the right lateral distal lower extremity there is also a wound that appears to be necrotic in nature. Mild swelling of the bilateral distal lower extremities. Distal pulses are palpable. HEAD: Atraumatic. Normocephalic. EYES: Pupils equal and round. No scleral icterus. No injection or drainage. ENT: No nasal bleeding or discharge. Mucous membranes pink and moist. NECK: Trachea midline. No JVD. CARDIOVASCULAR: Tachycardic rate and rhythm. No murmur appreciated. RESPIRATORY: No accessory muscle use. Clear to auscultation. Breath sounds equal bilaterally. GASTROINTESTINAL: Abdomen soft, non-tender, nondistended. Hepatic and splenic margins not palpable. MUSCULOSKELETAL: No obvious deformities. No clubbing. No cyanosis. NEUROLOGICAL: Awake and alert. No obvious cranial nerve deficits. Motor grossly within normal limits. Normal speech. Data Data Last Documented VS Vital Signs Date Time Temp Pulse Resp B/P (MAP) Pulse Ox O2 Delivery O2 Flow Rate FiO2 12/31/17 14:15 89 16 116/81 (93) 98 Room Air 12/31/17 12:15 2.00 Orders Orders Sepsis Workup Initiated (12/31/17 ) Electrocardiogram (12/31/17 12:03) Complete Blood Count With Diff (12/31/17 12:03) Comprehensive Metabolic Panel (12/31/17 12:03) Lactic Acid Sepsis Protocol (12/31/17 12:03) Urinalysis - C+S If Indicated (12/31/17 12:03) Blood Culture (12/31/17 12:03) Chest, Single Ap (12/31/17 12:03) Blood Glucose (12/31/17 12:03) Ecg Monitoring (12/31/17 12:03) Iv Access Insert/Monitor (12/31/17 12:03) Oximetry (12/31/17 12:03) Oxygen Administration (12/31/17 12:03) Ondansetron Inj (Zofran Inj) (12/31/17 12:15) Sodium Chlor 0.9% 1000 Ml Inj (Ns 1000 M (12/31/17 12:03) Sodium Chlor 0.9% 1000 Ml Inj (Ns 1000 M (12/31/17 12:03) Aztreonam Inj (Azactam Inj) (12/31/17 12:03) Metronidazole 500 Mg Inj (Flagyl 500 Mg (12/31/17 12:03) Vancomycin Inj (Vancomycin Inj) (12/31/17 12:03) Morphine Inj (Morphine Inj) (12/31/17 12:15) Wound Culture And Gram Stain (12/31/17 12:31) Tibia/Fibula (Ap/Lat) (12/31/17 ) Tibia/Fibula (Ap/Lat) (12/31/17 ) Morphine Inj (Morphine Inj) (12/31/17 15:45) Labs Laboratory Tests Test 12/31/17 12:20 12/31/17 14:15 White Blood Count 6.3 TH/MM3 Red Blood Count 4.85 MIL/MM3 Hemoglobin 12.3 GM/DL Hematocrit 37.1 % Mean Corpuscular Volume 76.6 FL Mean Corpuscular Hemoglobin 25.4 PG Mean Corpuscular Hemoglobin Concent 33.2 % Red Cell Distribution Width 16.9 % Platelet Count 296 TH/MM3 Mean Platelet Volume 8.3 FL Neutrophils (%) (Auto) 67.8 % Lymphocytes (%) (Auto) 23.8 % Monocytes (%) (Auto) 7.0 % Eosinophils (%) (Auto) 0.6 % Basophils (%) (Auto) 0.8 % Neutrophils # (Auto) 4.2 TH/MM3 Lymphocytes # (Auto) 1.5 TH/MM3 Monocytes # (Auto) 0.4 TH/MM3 Eosinophils # (Auto) 0.0 TH/MM3 Basophils # (Auto) 0.1 TH/MM3 CBC Comment DIFF FINAL Differential Comment Blood Urea Nitrogen 7 MG/DL Creatinine 0.76 MG/DL Random Glucose 96 MG/DL Total Protein 8.6 GM/DL Albumin 2.9 GM/DL Calcium Level 8.8 MG/DL Alkaline Phosphatase 137 U/L Aspartate Amino Transf (AST/SGOT) 20 U/L Alanine Aminotransferase (ALT/SGPT) 15 U/L Total Bilirubin 0.3 MG/DL Sodium Level 128 MEQ/L Potassium Level 3.7 MEQ/L Chloride Level 92 MEQ/L Carbon Dioxide Level 29.6 MEQ/L Anion Gap 6 MEQ/L Estimat Glomerular Filtration Rate 83 ML/MIN Lactic Acid Level 1.3 mmol/L Urine Color LIGHT-YELLOW Urine Turbidity CLEAR Urine pH 6.5 Urine Specific [place] 1.003 Urine Protein NEG mg/dL Urine Glucose (UA) NEG mg/dL Urine Ketones NEG mg/dL Urine Occult Blood SMALL Urine Nitrite NEG Urine Bilirubin NEG Urine Urobilinogen LESS THAN 2.0 MG/DL Urine Leukocyte Esterase LARGE Urine RBC 5 /hpf Urine WBC 4 /hpf Urine Squamous Epithelial Cells <1 /hpf Microscopic Urinalysis Comment CATH-CULT NOT IND MDM Medical Decision Making Medical Screen Exam Complete: Yes Emergency Medical Condition: Yes Medical Record Reviewed: Yes Differential Diagnosis Cellulitis versus abscess versus chronic wound versus acute wound versus necrotizing fasciitis versus recurrent wound versus sepsis Narrative Course 42-year-old female presents to emergency department for evaluation of worsening bilateral lower extremity wounds. Patient appears unwell. She is tachycardic with a known source. She does meet sepsis criteria. Sepsis protocol was initiated. Patient is treated for pain and given antibiotics for wound coverage. Laboratory Tests Test 12/31/17 12:20 12/31/17 14:15 White Blood Count 6.3 TH/MM3 Red Blood Count 4.85 MIL/MM3 Hemoglobin 12.3 GM/DL Hematocrit 37.1 % Mean Corpuscular Volume 76.6 FL Mean Corpuscular Hemoglobin 25.4 PG Mean Corpuscular Hemoglobin Concent 33.2 % Red Cell Distribution Width 16.9 % Platelet Count 296 TH/MM3 Mean Platelet Volume 8.3 FL Neutrophils (%) (Auto) 67.8 % Lymphocytes (%) (Auto) 23.8 % Monocytes (%) (Auto) 7.0 % Eosinophils (%) (Auto) 0.6 % Basophils (%) (Auto) 0.8 % Neutrophils # (Auto) 4.2 TH/MM3 Lymphocytes # (Auto) 1.5 TH/MM3 Monocytes # (Auto) 0.4 TH/MM3 Eosinophils # (Auto) 0.0 TH/MM3 Basophils # (Auto) 0.1 TH/MM3 CBC Comment DIFF FINAL Differential Comment Blood Urea Nitrogen 7 MG/DL Creatinine 0.76 MG/DL Random Glucose 96 MG/DL Total Protein 8.6 GM/DL Albumin 2.9 GM/DL Calcium Level 8.8 MG/DL Alkaline Phosphatase 137 U/L Aspartate Amino Transf (AST/SGOT) 20 U/L Alanine Aminotransferase (ALT/SGPT) 15 U/L Total Bilirubin 0.3 MG/DL Sodium Level 128 MEQ/L Potassium Level 3.7 MEQ/L Chloride Level 92 MEQ/L Carbon Dioxide Level 29.6 MEQ/L Anion Gap 6 MEQ/L Estimat Glomerular Filtration Rate 83 ML/MIN Lactic Acid Level 1.3 mmol/L Urine Color LIGHT-YELLOW Urine Turbidity CLEAR Urine pH 6.5 Urine Specific [place] 1.003 Urine Protein NEG mg/dL Urine Glucose (UA) NEG mg/dL Urine Ketones NEG mg/dL Urine Occult Blood SMALL Urine Nitrite NEG Urine Bilirubin NEG Urine Urobilinogen LESS THAN 2.0 MG/DL Urine Leukocyte Esterase LARGE Urine RBC 5 /hpf Urine WBC 4 /hpf Urine Squamous Epithelial Cells <1 /hpf Microscopic Urinalysis Comment CATH-CULT NOT IND Last Impressions Chest X-Ray 12/31/17 1203 Signed Impressions: Service Date/Time: Sunday, December 31, 2017 12:35 - CONCLUSION: 1. Scattered emphysematous changes bilaterally. 2. No focal infiltrate or pulmonary vascular congestion. Thomas Kennedy MD Tibia/Fibula X-Ray 12/31/17 0000 Signed Impressions: Service Date/Time: Sunday, December 31, 2017 13:43 - CONCLUSION: No osteomyelitis. Ata Friedman MD FACR Tibia/Fibula X-Ray 12/31/17 0000 Signed Impressions: Service Date/Time: Sunday, December 31, 2017 13:43 - CONCLUSION: 1. Plain film findings suggestive of multiple soft tissue ulcers in the left lower leg. 2. Osseous structures are all intact. No fracture or osteomyelitis. Nathan Ryder MD Findings are reviewed and discussed with my attending physician. She is also assess the patient. We feel it is in the patient's best interest to be admitted for further evaluation and care of these wounds. Plan is discussed with the patient. She is in agreement with this plan care. Sepsis Criteria SIRS Criteria (2 or more): Heart rate over 90 Sepsis Criteria (SIRS+source): Infect source susp/known Diagnosis Primary Impression: Sepsis Qualified Codes: A41.9 - Sepsis, unspecified organism Additional Impressions: Bilateral leg ulcer Qualified Codes: L97.912 - Non-pressure chronic ulcer of unspecified part of right lower leg with fat layer exposed; L97.922 - Non-pressure chronic ulcer of unspecified part of left lower leg with fat layer exposed Cellulitis of leg Qualified Codes: L03.119 - Cellulitis of unspecified part of limb Admitting Information Admitting Physician Requests: Admit Scripts No Active Prescriptions or Reported Meds Condition: Stable Florencia Torres Dec 31, 2017 12:17
[2017-12-31 12:42] LABS: AUTOMATED NEUTROPHIL # 4.2 TH/MM3 (1.8-7.7); BASOPHIL # 0.1 TH/MM3 (0-0.2); BASOPHIL % 0.8 % (0.0-2.0); EOSINOPHIL % 0.6 % (0.0-4.0); HEMATOCRIT 37.1 % (35.0-46.0); HEMOGLOBIN 12.3 GM/DL (11.6-15.3); LYMPH % 23.8 % (9.0-44.0); LYMPHOCYTE # 1.5 TH/MM3 (1.0-4.8); MEAN CELL VOLUME 76.6 FL (80.0-100.0); MEAN CORPUSCULAR HEMOGLOBIN 25.4 PG (27.0-34.0); MEAN CORPUSCULAR HGB CONC 33.2 % (32.0-36.0); MEAN PLATELET VOLUME 8.3 FL (7.0-11.0); MONOCYTE # 0.4 TH/MM3 (0-0.9); NEUT % 67.8 % (16.0-70.0); PLATELET COUNT 296 TH/MM3 (150-450); RED BLOOD COUNT 4.85 MIL/MM3 (4.00-5.30); RED CELL DISTRIBUTION WIDTH 16.9 % (11.6-17.2); WHITE BLOOD COUNT 6.3 TH/MM3 (4.0-11.0)
[2017-12-31 12:57] LABS: ALBUMIN 2.9 GM/DL (3.4-5.0); ALT (GPT) 15 U/L (10-53); AST (GOT) 20 U/L (15-37); BICARBONATE 29.6 MEQ/L (21.0-32.0); BLOOD UREA NITROGEN 7 MG/DL (7-18); CALCIUM 8.8 MG/DL (8.5-10.1); CHLORIDE 92 MEQ/L (98-107); CREATININE 0.76 MG/DL (0.50-1.00); GLOMERULAR FILTRATION RATE 83 ML/MIN (>89); GLUCOSE,RANDOM 96 MG/DL (74-106); SODIUM (NA) 128 MEQ/L (136-145)
[2017-12-31 12:59] LABS: ALKALINE PHOSPHATASE 137 U/L (45-117); TOTAL BILIRUBIN ADULT 0.3 MG/DL (0.2-1.0); TOTAL PROTEIN 8.6 GM/DL (6.4-8.2)
--- NOTE | 2017-12-31 13:13 | RADRPT ---
EXAM DATE/TIME: 12/31/2017 12:35 [facility] COMPARISON: No previous studies available for comparison. INDICATIONS : Fever. MEDICAL HISTORY : None. SURGICAL HISTORY : Hysterectomy. Appendectomy. ENCOUNTER: Initial ACUITY: 1 day PAIN SCORE: 0/10 LOCATION: Bilateral chest FINDINGS: Scattered emphysematous changes are noted bilaterally. There is no acute focal alveolar consolidation . No pulmonary edema is noted. The heart is normal. CONCLUSION: 1. Scattered emphysematous changes bilaterally. 2. No focal infiltrate or pulmonary vascular congestion. Thomas Kennedy MD on December 31, 2017 at 13:09 Board Certified Radiologist. This report was verified electronically.
[2017-12-31 14:15] VITALS: BP 116/81; PULSE 89; RESP 16; O2SAT 98
[2017-12-31 14:30] LABS: BILIRUBIN, URINE NEG (NEG); BLOOD, URINE SMALL (NEG); GLUCOSE,URINE NEG (NEG); KETONE, URINE NEG (NEG); NITRITE,URINE NEG (NEG); PH, URINE 6.5 (5.0-8.5); SQUAMOUS EPITHELIAL CELL URINE <1 /hpf (0-5); URINE COLOR LIGHT-YELLOW (YELLW/STRAW); URINE LEUKOCYTE ESTERASE LARGE (NEG)
--- NOTE | 2017-12-31 14:39 | PD ---
Physical Exam Date Seen by Provider: Dec 31, 2017 Time Seen by Provider: 12:30 Narrative I, Dr. Velázquez , have reviewed the advance practice practitioner's documentation and am in agreement, met with the patient face to face, made the diagnosis, and the medical decision making was done by me. *My assessment and Findings: Patient seen and evaluated nurse practitioner, please see nurse practitioner note for further details. Patient is here with worsening and leg wounds, appears to have large wounds to the legs which have been worsening. She has significant edema as well in both legs and surrounding cellulitis. IV antibiotics are initiated after cultures were drawn. At this point, my plan would be to admit the patient for further treatment and will likely need evaluation for possible need for debridement and wound care. Laboratory Tests Test 12/31/17 12:20 12/31/17 14:15 Mean Corpuscular Volume 76.6 FL (80.0-100.0) Mean Corpuscular Hemoglobin 25.4 PG (27.0-34.0) Total Protein 8.6 GM/DL (6.4-8.2) Albumin 2.9 GM/DL (3.4-5.0) Alkaline Phosphatase 137 U/L (45-117) Sodium Level 128 MEQ/L (136-145) Chloride Level 92 MEQ/L (98-107) Estimat Glomerular Filtration Rate 83 ML/MIN (>89) Urine Occult Blood SMALL (NEG) Urine Leukocyte Esterase LARGE (NEG) Urine RBC 5 /hpf (0-3) Last 24 hours Impressions Chest X-Ray 12/31/17 1203 Signed Impressions: Service Date/Time: Sunday, December 31, 2017 12:35 - CONCLUSION: 1. Scattered emphysematous changes bilaterally. 2. No focal infiltrate or pulmonary vascular congestion. Thomas Kennedy MD Data Data Last Documented VS Vital Signs Date Time Temp Pulse Resp B/P (MAP) Pulse Ox O2 Delivery O2 Flow Rate FiO2 12/31/17 14:15 89 16 116/81 (93) 98 Room Air 12/31/17 12:15 2.00 Orders Orders Sepsis Workup Initiated (12/31/17 ) Electrocardiogram (12/31/17 12:03) Complete Blood Count With Diff (12/31/17 12:03) Comprehensive Metabolic Panel (12/31/17 12:03) Lactic Acid Sepsis Protocol (12/31/17 12:03) Urinalysis - C+S If Indicated (12/31/17 12:03) Blood Culture (12/31/17 12:03) Chest, Single Ap (12/31/17 12:03) Blood Glucose (12/31/17 12:03) Ecg Monitoring (12/31/17 12:03) Iv Access Insert/Monitor (12/31/17 12:03) Oximetry (12/31/17 12:03) Oxygen Administration (12/31/17 12:03) Ondansetron Inj (Zofran Inj) (12/31/17 12:15) Sodium Chlor 0.9% 1000 Ml Inj (Ns 1000 M (12/31/17 12:03) Sodium Chlor 0.9% 1000 Ml Inj (Ns 1000 M (12/31/17 12:03) Aztreonam Inj (Azactam Inj) (12/31/17 12:03) Metronidazole 500 Mg Inj (Flagyl 500 Mg (12/31/17 12:03) Vancomycin Inj (Vancomycin Inj) (12/31/17 12:03) Morphine Inj (Morphine Inj) (12/31/17 12:15) Wound Culture And Gram Stain (12/31/17 12:31) Tibia/Fibula (Ap/Lat) (12/31/17 ) Tibia/Fibula (Ap/Lat) (12/31/17 ) Labs Laboratory Tests Test 12/31/17 12:20 12/31/17 14:15 White Blood Count 6.3 TH/MM3 Red Blood Count 4.85 MIL/MM3 Hemoglobin 12.3 GM/DL Hematocrit 37.1 % Mean Corpuscular Volume 76.6 FL Mean Corpuscular Hemoglobin 25.4 PG Mean Corpuscular Hemoglobin Concent 33.2 % Red Cell Distribution Width 16.9 % Platelet Count 296 TH/MM3 Mean Platelet Volume 8.3 FL Neutrophils (%) (Auto) 67.8 % Lymphocytes (%) (Auto) 23.8 % Monocytes (%) (Auto) 7.0 % Eosinophils (%) (Auto) 0.6 % Basophils (%) (Auto) 0.8 % Neutrophils # (Auto) 4.2 TH/MM3 Lymphocytes # (Auto) 1.5 TH/MM3 Monocytes # (Auto) 0.4 TH/MM3 Eosinophils # (Auto) 0.0 TH/MM3 Basophils # (Auto) 0.1 TH/MM3 CBC Comment DIFF FINAL Differential Comment Blood Urea Nitrogen 7 MG/DL Creatinine 0.76 MG/DL Random Glucose 96 MG/DL Total Protein 8.6 GM/DL Albumin 2.9 GM/DL Calcium Level 8.8 MG/DL Alkaline Phosphatase 137 U/L Aspartate Amino Transf (AST/SGOT) 20 U/L Alanine Aminotransferase (ALT/SGPT) 15 U/L Total Bilirubin 0.3 MG/DL Sodium Level 128 MEQ/L Potassium Level 3.7 MEQ/L Chloride Level 92 MEQ/L Carbon Dioxide Level 29.6 MEQ/L Anion Gap 6 MEQ/L Estimat Glomerular Filtration Rate 83 ML/MIN Lactic Acid Level 1.3 mmol/L Urine Color LIGHT-YELLOW Urine Turbidity CLEAR Urine pH 6.5 Urine Specific [place] 1.003 Urine Protein NEG mg/dL Urine Glucose (UA) NEG mg/dL Urine Ketones NEG mg/dL Urine Occult Blood SMALL Urine Nitrite NEG Urine Bilirubin NEG Urine Urobilinogen LESS THAN 2.0 MG/DL Urine Leukocyte Esterase LARGE Urine RBC 5 /hpf Urine WBC 4 /hpf Urine Squamous Epithelial Cells <1 /hpf Microscopic Urinalysis Comment CATH-CULT NOT IND MDM Medical Record Reviewed: Yes Supervised Visit with JUNIOR: Yes Diagnosis Primary Impression: Cellulitis of leg Additional Impression: Bilateral leg ulcer Admitting Information Admitting Physician Requests: Admit Scripts No Active Prescriptions or Reported Meds Fili Velázquez MD Dec 31, 2017 14:39
--- NOTE | 2017-12-31 14:57 | RADRPT ---
EXAM DATE/TIME: 12/31/2017 13:43 [facility] COMPARISON: No previous studies available for comparison. INDICATIONS : Infection, inflammation,large open sores covering both lower legs on all sides for 2 months MEDICAL HISTORY : cellulitis SURGICAL HISTORY : Hysterectomy. Appendectomy. ENCOUNTER: Initial ACUITY: 2 months PAIN SCORE: 10/10 LOCATION: Left lower legs FINDINGS: Soft tissue swelling with skin defects. No osteo myelitis or subcutaneous air. CONCLUSION: No osteomyelitis. Ata Friedman MD FACR on December 31, 2017 at 14:54 Board Certified Radiologist. This report was verified electronically.
--- NOTE | 2017-12-31 15:05 | RADRPT ---
EXAM DATE/TIME: 12/31/2017 13:43 [place] COMPARISON: No previous studies available for comparison. INDICATIONS : Left lower leg pain, swelling for 2 months MEDICAL HISTORY : Cellulitis SURGICAL HISTORY : Hysterectomy. Appendectomy. ENCOUNTER: Initial ACUITY: 2 months PAIN SCORE: 10/10 LOCATION: Left lower leg FINDINGS: Two view examination of the left tibia demonstrates multiple low density areas overlying the tibia an d fibula appear to represent regional soft tissue ulcers. These are seen anteriorly, posteriorly and laterally. Osseous structures themselves appear intact CONCLUSION: 1. Plain film findings suggestive of multiple soft tissue ulcers in the left lower leg. 2. Osseous structures are all intact. No fracture or osteomyelitis. Nathan Ryder MD on December 31, 2017 at 15:01 Board Certified Radiologist. This report was verified electronically.
[2017-12-31] MEDS ORDERED: diphenhydrAMINE HCL 50 MG/ML VIAL IV PUSH ONE (16:00)
[2017-12-31] MEDS ORDERED: methylPREDNISolone SOD SUCC 125 MG/2 ML VIAL IV PUSH ONE (16:00)
[2017-12-31 16:01] VITALS: BP 131/89; PULSE 115; RESP 16; O2SAT 96
--- NOTE | 2017-12-31 16:38 | HHI.HP ---
HPI Service [facility] Primary Care Physician No Primary Care Physician Admission Diagnosis Diagnoses: Chief Complaint: Leg Ulcers Travel History International Travel<30 Days: No Contact w/Intl Traveler <30 Da: No Traveled to Known Affected Are: No History of Present Illness This is a pleasant 42 y/o Female with History of COPD, Crohn's Disease, who came to ER with bilateral lower extremities ulcers Patient was seen, evaluated, and admitted to the hospital in October 2017 for evaluation of lower extremity cellulitis. Patient states then she did have some wounds but they were healing. She was unable to follow-up with any outpatient providers. She states over the last week the wound that were once scabbed over and black and have began to blister and peel off. They're weeping. She reports subjective fever and chills. She states that she feels weak. She reports severe pain in the lower extremities. seen in her bedroom, has chronic ulcer specially on the left foot and ankle, had allergic reaction to Vancomycin will continue Aztreonam asked for Podiatry specialist and Vascular epic willow specialist, wound care consult. Review of Systems Constitutional: DENIES: Fever, Chills, Change in appetite Endocrine: DENIES: Heat/cold intolerance Eyes: DENIES: Blurred vision, Eye pain Except as stated in HPI: all other systems reviewed are Neg Past Family Social History Past Medical History COPD Anxiety Cervical Cancer 1993 Crohn's Disease Hepatitis C Past Surgical History Exploratory Laparotomy Hysterectomy Reported Medications Reported Meds & Active Scripts Active No Active Prescriptions or Reported Medications Allergies: Coded Allergies: codeine (Verified Allergy, Severe, 12/31/17) ketorolac (Verified Allergy, Severe, 12/31/17) vancomycin (Verified Allergy, Severe, 12/31/17) hives, itching, dyspnea penicillin G (Verified Allergy, Intermediate, Rash, 12/31/17) Active Ordered Medications Current Medications Medications (Trade) Dose Ordered Sig/Malgorzata Route Start Time Stop Time Status Last Admin Sodium Chloride 1,000 ml @ 100 mls/hr Q10H IV 12/31/17 18:00 (NS Flush) 2 ml UNSCH PRN IV FLUSH 12/31/17 16:45 (NS Flush) 2 ml BID IV FLUSH 12/31/17 21:00 (Tylenol) 650 mg Q4H PRN PO 12/31/17 16:45 (Zofran Inj) 4 mg Q6H PRN IVP 12/31/17 16:45 (Narcan Inj) 0.4 mg UNSCH PRN IV PUSH 12/31/17 16:45 (Senokot) 17.2 mg Q12H PRN PO 12/31/17 16:45 (Dulcolax Supp) 10 mg DAILY PRN RECTAL 12/31/17 16:45 (Lactulose Liq) 30 ml DAILY PRN PO 12/31/17 16:45 (Duoneb Neb) 1 ampule Q4HR NEB NEB 12/31/17 20:00 (Mucinex Er) 600 mg BID PO 12/31/17 21:00 Family History Asked and denied. Social History Tobacco dependence half pack daily Physical Exam Vital Signs Vital Signs Date Time Temp Pulse Resp B/P (MAP) Pulse Ox O2 Delivery O2 Flow Rate FiO2 12/31/17 16:01 115 16 131/89 (103) 96 Room Air 12/31/17 14:15 89 16 116/81 (93) 98 Room Air 12/31/17 12:15 98 Nasal Cannula 2.00 Physical Exam GENERAL: Disheveled, ill-appearing female patient, lying in bed, in no acute distress. SKIN: Focused skin assessment warm/dry. Multiple skin lesions on the extremities. On the left posterior lateral lower extremity there is a 20 cm x 8 cm open wound with serous drainage and some yellow soft. There is a 10 cm diameter necrotic wound on the left heel. On the right lateral distal lower extremity there is also a wound that appears to be necrotic in nature. Mild swelling of the bilateral distal lower extremities. Distal pulses are palpable. HEAD: Atraumatic. Normocephalic. EYES: Pupils equal and round. No scleral icterus. No injection or drainage. ENT: No nasal bleeding or discharge. Mucous membranes pink and moist. NECK: Trachea midline. No JVD. CARDIOVASCULAR: Tachycardic rate and rhythm. No murmur appreciated. RESPIRATORY: No accessory muscle use. Clear to auscultation. Breath sounds equal bilaterally. GASTROINTESTINAL: Abdomen soft, non-tender, nondistended. Hepatic and splenic margins not palpable. MUSCULOSKELETAL: No obvious deformities. No clubbing. No cyanosis. NEUROLOGICAL: Awake and alert. No obvious cranial nerve deficits. Motor grossly within normal limits. Normal speech. Laboratory Laboratory Tests Test 12/31/17 12:20 12/31/17 14:15 White Blood Count 6.3 Red Blood Count 4.85 Hemoglobin 12.3 Hematocrit 37.1 Mean Corpuscular Volume 76.6 Mean Corpuscular Hemoglobin 25.4 Mean Corpuscular Hemoglobin Concent 33.2 Red Cell Distribution Width 16.9 Platelet Count 296 Mean Platelet Volume 8.3 Neutrophils (%) (Auto) 67.8 Lymphocytes (%) (Auto) 23.8 Monocytes (%) (Auto) 7.0 Eosinophils (%) (Auto) 0.6 Basophils (%) (Auto) 0.8 Neutrophils # (Auto) 4.2 Lymphocytes # (Auto) 1.5 Monocytes # (Auto) 0.4 Eosinophils # (Auto) 0.0 Basophils # (Auto) 0.1 CBC Comment DIFF FINAL Differential Comment Blood Urea Nitrogen 7 Creatinine 0.76 Random Glucose 96 Total Protein 8.6 Albumin 2.9 Calcium Level 8.8 Alkaline Phosphatase 137 Aspartate Amino Transf (AST/SGOT) 20 Alanine Aminotransferase (ALT/SGPT) 15 Total Bilirubin 0.3 Sodium Level 128 Potassium Level 3.7 Chloride Level 92 Carbon Dioxide Level 29.6 Anion Gap 6 Estimat Glomerular Filtration Rate 83 Lactic Acid Level 1.3 Urine Color LIGHT-YELLOW Urine Turbidity CLEAR Urine pH 6.5 Urine Specific [place] 1.003 Urine Protein NEG Urine Glucose (UA) NEG Urine Ketones NEG Urine Occult Blood SMALL Urine Nitrite NEG Urine Bilirubin NEG Urine Urobilinogen LESS THAN 2.0 Urine Leukocyte Esterase LARGE Urine RBC 5 Urine WBC 4 Urine Squamous Epithelial Cells <1 Microscopic Urinalysis Comment CATH-CULT NOT IND Date/Time Source Procedure Growth Status 12/31/17 12:20 Blood Peripheral Aerobic Blood Culture Pending Received 12/31/17 12:20 Blood Peripheral Anaerobic Blood Culture Pending Received 12/31/17 12:50 Wound Leg Gram Stain Pending Received 12/31/17 12:50 Wound Leg Wound Culture Pending Received Result Diagram: 12/31/17 1220 12/31/17 1220 Imaging Last Impressions Chest X-Ray 12/31/17 1203 Signed Impressions: Service Date/Time: Sunday, December 31, 2017 12:35 - CONCLUSION: 1. Scattered emphysematous changes bilaterally. 2. No focal infiltrate or pulmonary vascular congestion. Thomas Kennedy MD Tibia/Fibula X-Ray 12/31/17 0000 Signed Impressions: Service Date/Time: Sunday, December 31, 2017 13:43 - CONCLUSION: No osteomyelitis. Ata Friedman MD FACR Caprini VTE Risk Assessment Caprini VTE Risk Assessment: Mod/High Risk (score >= 2) Caprini Risk Assessment Model Point Value = 1 Point Value = 2 Point Value = 3 Point Value = 5 Age 41-60 Minor surgery BMI > 25 kg/m2 Swollen legs Varicose veins or History of unexplained or recurrent spontaneous Oral contraceptives or hormone replacement Sepsis (< 1 month) Serious lung disease, including pneumonia (< 1 month) Abnormal pulmonary function Acute myocardial infarction Congestive heart failure (< 1 month) History of inflammatory bowel disease Medical patient at bed rest Age 61-74 Arthroscopic surgery Major open surgery (> 45 min) Laparoscopic surgery (> 45 min) Malignancy Confined to bed (> 72 hours) Immobilizing plaster cast Central venous access Age >= 75 History of VTE Family history of VTE Factor V Leiden Prothrombin [id number] Lupus anticoagulant Anticardiolipin antibodies Elevated serum homocysteine Heparin-induced thrombocytopenia Other congenital or acquired thrombophilia Stroke (< 1 month) Elective arthroplasty Hip, pelvis, or leg fracture Acute spinal cord injury (< 1 month) Prophylaxis Regimen Total Risk Factor Score Risk Level Prophylaxis Regimen 0-1 Low Early ambulation 2 Moderate Order ONE of the following: *Sequential Compression Device (SCD) *Heparin 5000 units SQ BID 3-4 Higher Order ONE of the following medications: *Heparin 5000 units SQ TID *Enoxaparin/Lovenox 40 mg SQ daily (WT < 150 kg, CrCl > 30 mL/min) *Enoxaparin/Lovenox 30 mg SQ daily (WT < 150 kg, CrCl > 10-29 mL/min) *Enoxaparin/Lovenox 30 mg SQ BID (WT < 150 kg, CrCl > 30 mL/min) AND/OR *Sequential Compression Device (SCD) 5 or more Highest Order ONE of the following medications: *Heparin 5000 units SQ TID (Preferred with Epidurals) *Enoxaparin/Lovenox 40 mg SQ daily (WT < 150 kg, CrCl > 30 mL/min) *Enoxaparin/Lovenox 30 mg SQ daily (WT < 150 kg, CrCl > 10-29 mL/min) *Enoxaparin/Lovenox 30 mg SQ BID (WT < 150 kg, CrCl > 30 mL/min) AND *Sequential Compression Device (SCD) Assessment and Plan Assessment and Plan 1. Bilateral Leg Ulcer specially on left leg extensive ulcer Stage III that covers left ankle area, Achilles tendon area and ankle posterior and medial area with purulent secretion, will continue Aztreonam Flagyl asked for Vascular epic willow specialist, wound care consult. 2. COPD by history will continue Bronchodilator, Mucolytic and incentive spirometry non exacerbated at this time 3. Crohn's Disease by history 4. Hepatitis C by history 5. Anxiety disorder 6. Cervical Cancer 1992 7. UTI continue antibiotics. 8. tobacco dependence strongly recommended to stop smoking. Nicotine replacement started. DVT prophylaxis with Heparin. Code Status Full code. Discussed Condition With Florencia Torres Physician Certification 2 Midnight Certification Type: Admission for Inpatient Services Order for Inpatient Services The services are ordered in accordance with Medicare regulations or non- Medicare payer requirements, as applicable. In the case of services not specified as inpatient-only, they are appropriately provided as inpatient services in accordance with the 2-midnight benchmark. Estimated LOS (days): 3 days is the estimated time the patient will need to remain in the hospital, assuming treatment plan goals are met and no additional complications. Post-Hospital Plan: Not yet determined Spenser Hernandez MD Dec 31, 2017 16:38
[2017-12-31] MEDS ORDERED: BISACODYL 10 MG SUPP RECTAL PRN (16:45)
[2017-12-31] MEDS ORDERED: ACETAMINOPHEN 325 MG TAB PO PRN (16:45)
[2017-12-31] MEDS ORDERED: LACTULOSE SYRUP 20 GM/30 ML CUP PO PRN (16:45)
[2017-12-31] MEDS ORDERED: SENNOSIDES 8.6 MG TAB PO PRN (16:45)
[2017-12-31] MEDS ORDERED: NALOXONE HCL 0.4 MG/ML AMP IV PUSH PRN (16:45)
[2017-12-31 18:30] VITALS: BP 125/92; PULSE 96; RESP 16; O2SAT 96
[2017-12-31 20:00] VITALS: BP 120/79; PULSE 97; RESP 16; TEMP 97.2; O2SAT 96
[2017-12-31] MEDS: RESP: ALBUTEROL 2.5 MG/IPRATROPIUM 0.5 MG NEB (SCH) NEB (20:00)
[2017-12-31] MEDS: ENOXAPARIN SODIUM 40 MG/0.4 ML SYRINGE SQ SCH (20:00)
[2017-12-31] MEDS: ACETAMINOPHEN/HYDROcodone 325 MG/5 MG TAB PO PRN (21:45)
[2017-12-31] MEDS: SODIUM CHLOR 0.9% 1000 ML INJ 1,000 ML IV SCH (21:49)
[2017-12-31] MEDS: guaiFENesin E.R. 600 MG TAB PO SCH (21:50)
[2017-12-31] MEDS: metroNIDAZOLE 500 MG INJ 100 ML IV SCH (21:50)
[2017-12-31] MEDS: SODIUM CHLORIDE 0.9% FLUSH 10 ML FLUSH IV FLUSH SCH (21:51)
[2017-12-31] MEDS: MORPHINE SULFATE 2 MG/ML INJ IV PUSH PRN (23:44)
[2017-12-31 23:47] LABS: CHOLESTEROL/ HDL RATIO 7.77 RATIO; FREE T4 2.51 NG/DL (0.76-1.46); HDL CHOLESTEROL 21.1 MG/DL (40.0-60.0)
[2018-01-01] VITALS (7 sets, daily range): BP systolic 104–120; BP diastolic 71–81; PULSE 69–100; RESP 16–18; TEMP 95.4–98; O2SAT 95–98
[2018-01-01] MEDS: AZTREONAM INJ 2,000 MG in SODIUM CHLORIDE 0.9% INJ 100 ML IV SCH ×2 (00:37→10:56)
[2018-01-01] MEDS: ACETAMINOPHEN/HYDROcodone 325 MG/5 MG TAB PO PRN ×2 (01:43→05:35)
[2018-01-01] MEDS: MORPHINE SULFATE 2 MG/ML INJ IV PUSH PRN ×6 (02:49→23:05)
[2018-01-01] MEDS: RESP: ALBUTEROL 2.5 MG/IPRATROPIUM 0.5 MG NEB (SCH) NEB ×6 (04:00→19:22)
[2018-01-01] MEDS: SODIUM CHLOR 0.9% 1000 ML INJ 1,000 ML IV SCH ×3 (04:00→23:11)
[2018-01-01] MEDS: metroNIDAZOLE 500 MG INJ 100 ML IV SCH ×2 (05:35→12:38)
[2018-01-01] MEDS: SODIUM CHLORIDE 0.9% FLUSH 10 ML FLUSH IV FLUSH SCH ×2 (07:36→23:04)
[2018-01-01] MEDS: NICOTINE 21 MG/24 HR PATCH T-DERMAL SCH (07:37)
[2018-01-01] MEDS: guaiFENesin E.R. 600 MG TAB PO SCH ×2 (07:38→23:04)
[2018-01-01] MEDS: REMOVE OLD PATCH T-DERMAL SCH (07:41)
[2018-01-01 08:13] LABS: AUTOMATED NEUTROPHIL # 2.3 TH/MM3 (1.8-7.7); BASOPHIL % 1.3 % (0.0-2.0); EOSINOPHIL % 0.1 % (0.0-4.0); HEMATOCRIT 29.9 % (35.0-46.0); HEMOGLOBIN 10.1 GM/DL (11.6-15.3); LYMPH % 22.7 % (9.0-44.0); LYMPHOCYTE # 0.8 TH/MM3 (1.0-4.8); MEAN CELL VOLUME 77.4 FL (80.0-100.0); MEAN CORPUSCULAR HEMOGLOBIN 26.1 PG (27.0-34.0); MEAN CORPUSCULAR HGB CONC 33.7 % (32.0-36.0); MEAN PLATELET VOLUME 8.7 FL (7.0-11.0); MONO % 6.9 % (0.0-8.0); MONOCYTE # 0.2 TH/MM3 (0-0.9); PLATELET COUNT 202 TH/MM3 (150-450); RED BLOOD COUNT 3.87 MIL/MM3 (4.00-5.30); RED CELL DISTRIBUTION WIDTH 16.6 % (11.6-17.2); WHITE BLOOD COUNT 3.4 TH/MM3 (4.0-11.0)
[2018-01-01 08:18] LABS: INTERNATIONAL NORMALIZED RATIO 1.1 RATIO; PROTHROMBIN TIME - PATIENT 10.7 SEC (9.8-11.6)
[2018-01-01 08:39] LABS: ALBUMIN 1.9 GM/DL (3.4-5.0); ALKALINE PHOSPHATASE 88 U/L (45-117); ALT (GPT) 10 U/L (10-53); AST (GOT) 17 U/L (15-37); BICARBONATE 24.7 MEQ/L (21.0-32.0); BLOOD UREA NITROGEN 11 MG/DL (7-18); CALCIUM 8.3 MG/DL (8.5-10.1); CHLORIDE 108 MEQ/L (98-107); CREATININE 0.64 MG/DL (0.50-1.00); GLOMERULAR FILTRATION RATE 101 ML/MIN (>89); GLUCOSE,RANDOM 140 MG/DL (74-106); SODIUM (NA) 139 MEQ/L (136-145); TOTAL BILIRUBIN ADULT 0.1 MG/DL (0.2-1.0); TOTAL PROTEIN 5.9 GM/DL (6.4-8.2)
[2018-01-01] MEDS ORDERED: traMADol HCL 50 MG TAB PO PRN (10:00)
--- NOTE | 2018-01-01 10:01 | HHI.PR ---
Subjective Remarks Follow up wounds. Patient reports significant pain with removal of bandages on her lower extremities. She reports fever, chills. Objective Vitals Vital Signs Date Time Temp Pulse Resp B/P (MAP) Pulse Ox O2 Delivery O2 Flow Rate FiO2 01/01/18 08:00 96.5 69 16 104/77 (86) 98 01/01/18 07:41 18 01/01/18 04:58 96.3 100 16 108/71 (83) 96 01/01/18 00:00 98.0 85 18 106/74 (85) 95 12/31/17 20:00 97.2 97 16 120/79 (93) 96 12/31/17 18:55 12/31/17 18:30 96 16 125/92 (103) 96 Room Air 12/31/17 16:01 115 16 131/89 (103) 96 Room Air 12/31/17 14:15 89 16 116/81 (93) 98 Room Air 12/31/17 12:15 98 Nasal Cannula 2.00 I/O 12/31/17 12/31/17 12/31/17 01/01/18 01/01/18 01/01/18 07:00 15:00 23:00 07:00 15:00 23:00 Intake Total 100 ml 780 ml Balance 100 ml 780 ml Intake Oral 580 ml IV Total 100 ml 200 ml # Voids 3 Result Diagram: 01/01/18 0721 01/01/18 0721 Imaging Last Impressions Chest X-Ray 12/31/17 1203 Signed Impressions: Service Date/Time: Sunday, December 31, 2017 12:35 - CONCLUSION: 1. Scattered emphysematous changes bilaterally. 2. No focal infiltrate or pulmonary vascular congestion. Thomas Kennedy MD Tibia/Fibula X-Ray 12/31/17 0000 Signed Impressions: Service Date/Time: Sunday, December 31, 2017 13:43 - CONCLUSION: No osteomyelitis. Ata Friedman MD FACR Objective Remarks General: No acute distress. Heart: Regular rate and rhythm. No murmur. Lungs: Clear to auscultation bilaterally. No wheezes, rales, or rhonchi. Breathing is nonlabored. Abdomen: Soft, nontender, nondistended. Extremities: No lower extremity edema. Psych: Alert and oriented. Skin: Multiple wounds on both lower extremities, left greater than right. There is a necrotic wound overlying the left heel. There is a wound on the lateral right foot with central eschar. She also has smaller wounds on the fingers of both hands. Procedures None Urinary Catheter: No Vascular Central Line Catheter: No A/P Assessment and Plan 1. Bilateral lower extremity wounds: Patient has ulcerative lesions on both lower extremities. There is a large ulceration on the left lower leg that covers most of the ankle. Continue IV antibiotics. Vascular surgery and wound care consults are pending. Consult podiatry. 2. Bilateral hand wounds: Consult hand surgery. 3. History of COPD: Continue bronchodilators, incentive spirometry. Not currently in exacerbation. 4. History of Crohn's disease: Stable. 5. History of hepatitis C: Follow-up as outpatient. 6. UTI: Continue antibiotics. Urine cultures pending. 7. Tobacco abuse: Counseled to quit smoking. Continue nicotine patch. 8. DVT prophylaxis: Lovenox. 9. Hyponatremia: Sodium improved with IV fluids. James Hutchinson MD Jan 01, 2018 10:01
[2018-01-01] MEDS ORDERED: ACETAMINOPHEN/HYDROcodone 325 MG/5 MG TAB PO PRN (10:15)
[2018-01-01] MEDS: ACETAMINOPHEN/HYDROcodone 325 MG/7.5 MG TAB PO PRN ×3 (10:18→21:30)
[2018-01-01] MEDS: ONDANSETRON HCL 4 MG/2 ML VIAL IVP PRN (11:02)
[2018-01-01 11:32] LABS: HEMOGLOBIN A1C 5.7 % (4.3-6.0)
--- NOTE | 2018-01-01 12:10 | MB ---
cc: SALEEM RANDALL MD DATE OF CONSULTATION: 01/01/3018. REASON FOR CONSULTATION: Bilateral finger wounds. HISTORY OF PRESENT ILLNESS: The patient is a 42-year-old right hand dominant female with history of COPD, Crohn's and hepatitis C admitted to the hospital yesterday with complaints of bilateral lower extremity wounds and was found to have wounds over both hands; hence, hand surgery was consulted. Patient states she has noticed the lesion over the dorsal aspect of her fingers for the past three to four days. On further questioning, she states a similar kind of lesion started on both feet the past two to three years which used to resolve on its own. For the past two to three months, she has had worsening of the lesions involving both of her feet and now it has progressed to a big wound over both feet. The patient denies any injury. Denies any tingling or numbness. Denies any similar complaints over the fingers in the past. She also complains of mild drainage and pain over the lesions on the fingers. PAST MEDICAL HISTORY / PAST SURGICAL HISTORY: Significant for: 1. Crohn's. 2. Hepatitis C. PHYSICAL EXAMINATION: On examination, the patient is alert and oriented times three. Examination of the right hand reveals a scab-like lesion over the dorsal aspect of the proximal phalanx region of the index and middle fingers. Mild surrounding erythema noted. Very mild tenderness noted. No drainage noted. The scab appears to be dry. No evidence of drainage noted. She is able to make a full fist. She has full extension of the fingers. She has intact sensation distally. Examination of the left hand reveals scabbed lesions over the dorsal aspect of the proximal phalanx region of the index and middle fingers with mild surrounding swelling. No purulent drainage noted. Mild tenderness noted. Mild surrounding erythema noted. She is able to make a full fist. The patient has full extension of the fingers. The patient has intact sensation distally. LABORATORY STUDIES: Lab work was reviewed. She has a white count of 3.4 with neutrophils of 69%. ASSESSMENT: A 42-year-old female with history of Crohn's and hepatitis C with bilateral symmetrical scabbed lesions over the dorsal aspect of the fingers and chronic wounds over the lower extremities. PLAN: The patient has symmetrical scab-like lesions over the dorsal aspect of the fingers with crusting. She also has had similar lesions in the past involving her feet. I suspect she has systemic cause causing these lesions. No need for surgical debridement of the lesion at the present time. The recommendation will be to get an infectious disease consult for further input and systemic workup to rule out autoimmune conditions. Hand surgery will closely follow. Saleem Randall MD SE/MIKE /11:37 AM /11:57 AM CHEN
--- NOTE | 2018-01-01 13:10 | MB ---
cc: DAVID TORRES MD DATE OF CONSULTATION: 01/01/2018. REASON FOR CONSULTATION: Peripheral vascular changes and vasculitis wounds of the legs. HISTORY OF PRESENT ILLNESS: This 42-year-old female appearing much older than her actual age presents repeatedly to the hospital with a skin defect and ulcers of both legs, left more than right. She was here just about two months ago with bilateral lower extremity cellulitis and was treated, went out, did not receive any therapy from anywhere, did not follow with anybody, and now she is back. The patient now has severe erosive ulcers on both feet, left more than right, involving the heels and question arises about any vascular compromise. PAST SURGICAL HISTORY: 1. Exploratory laparotomy which was apparently negative. 2. Hysterectomy. PAST MEDICAL HISTORY: 1. Cervical cancer. 2. Crohn's disease. 3. Hepatitis C. 4. COPD. SOCIAL HISTORY: The patient smokes about a pack a day of cigarettes, of not more, and has been losing weight lately. PHYSICAL EXAMINATION: GENERAL: The physical examination reveals a 42-year-old female appearing much older than her actual age, appearing malnourished. HEAD, EYES, EARS, NOSE, THROAT: Normocephalic. No trauma to the head. Pupils equal and reactive. Extraocular muscles intact. NECK: Bilateral carotid pulses. No bruits. CHEST: Bilateral breath sounds decreased over both lung reddy. The patient has lost a lot of weight. She is essentially very thin and emaciated-appearing. HEART: Regular rhythm. The patient did not have any arrhythmias while I was there. ABDOMEN: Soft, patulous. Active bowel sounds. EXTREMITIES: The patient has palpable femoral, palpable popliteal and palpable dorsalis pedis and posterior tibial pulses bilaterally. There is no sign of vascular deficit. Below the level of the knee, the patient has multiple areas of black scabs and then on the left foot she has basically deep erosive lesions on the left heel/Achilles tendon area and somewhat laterally on the ankle. On the right side, it is somewhat less but similar. NEUROLOGIC: She is grossly intact. IMPRESSION AND RECOMMENDATIONS: 1. This patient does not have any significant degree of peripheral vascular disease that would require further workup for that. 2. As far as her general picture is concerned, just the very notion of Crohn's disease as a thought brings to the differential diagnosis a plethora of reticuloendothelial vasoreactive hypercoagulable states including Lupus, scleroderma, ankylosing spondylitis, the scope of Crohn's disease changes in the various types of vasculitides that we see in practice with immunoreactive elements causing distal embolization and occlusion of small vessels including, of course, Buerger's disease associated with smoking. This patient certainly presents almost like a Buerger's disease but with somewhat unusual pattern of skin changes. Therefore immune workup is essential. 3. As far as the vascular progression is concerned, while the patient does not have any major vessel disease, obviously capillaries are involved and the patient has atrophy of both legs. With these defects of her heels, she is at a high risk of losing both legs above the knee in the next few months if this infection progresses to osteomyelitis because then it will be unstoppable. 4. As far as the patient's weight loss is concerned, obviously this may related to the whole picture. The patient states she does not drink and I am not sure what other factors may be contributing to this. Right now from a vascular point, there is nothing to contribute; however, if the patient requires any amputations, I will be available. Thank you very much for the referral. David DANGELO/MIKE /12:13 PM /12:57 PM
[2018-01-01 14:12] LABS: RHEUMATOID FACTOR SCREEN NEGATIVE (NEGATIVE)
[2018-01-01] MEDS: SODIUM CHLORIDE 0.9% FLUSH 10 ML FLUSH IV FLUSH PRN ×2 (14:58→18:45)
--- NOTE | 2018-01-01 17:48 | PD.ID.CON ---
History of Present Illness Service Infectious disease Consult Requested By Dr. Hutchinson Reason for Consult Evaluation and management of bilateral lower extremity ulcers in a patient with hepatitis C and cryoglobulins positive Primary Care Physician No Primary Care Physician Diagnoses: History of Present Illness is a 42 y/o CF with PMHx significant for recurrent cellulitis, Hepatitis C treatment naive,, IV drug abuse, reported history of Crohn's disease , COPD. Patient was seen, evaluated, and admitted to the hospital in October 2017 for evaluation of lower extremity cellulitis. Patient states then she did have some wounds but they were healing. Upon review of the records it appears that she was discharged on a tapering steroid dose. She was unable to follow-up with any outpatient providers. She states over the last week the wound that were once scabbed over and black and have began to blister and peel off. She reports subjective fever and chills. She states that she feels weak. She reports severe pain in the lower extremities. During her past admission and her workup was positive for hepatitis C as well as cryoglobulins were positive. ID consulted for evaluation and MMent of cellulitis bilateral LE and vasculitis. Review of Systems ROS Limitations: Poor Historian Constitutional: COMPLAINS OF: Fever, Chills, DENIES: Diaphoretic episodes, Fatigue, Weight gain, Weight loss, Dizziness, Change in appetite, Night Sweats Endocrine: DENIES: Abnorml menstrual pattern, Heat/cold intolerance, Polydipsia , Polyuria, Polyphagia Eyes: DENIES: Blurred vision, Diplopia, Eye inflammation, Eye pain, Vision loss , Photosensitivity, Double Vision Ears, nose, mouth, throat: DENIES: Tinnitus, Hearing loss, Vertigo, Nasal discharge, Oral lesions, Throat pain, Hoarseness, Ear Pain, Running Nose, Epistaxis, Sinus Pain, Toothache, Odynophagia Respiratory: DENIES: Apneas, Cough, Snoring, Wheezing, Hemoptysis, Sputum production, Shortness of breath Cardiovascular: DENIES: Chest pain, Palpitations, Syncope, Dyspnea on Exertion , PND, Lower Extremity Edema, Orthopnea, Claudication Gastrointestinal: DENIES: Abdominal pain, Black stools, Bloody stools, Constipation, Diarrhea, Nausea, Vomiting, Difficulty Swallowing, Anorexia Genitourinary: DENIES: Abnormal vaginal bleeding, Dysmenorrhea, Dyspareunia, Sexual dysfunction, Urinary frequency, Urinary incontinence, Urgency, Hematuria , Dysuria, Nocturia, Vaginal discharge Musculoskeletal: DENIES: Joint pain, Muscle aches, Stiffness, Joint Swelling, Back pain, Neck pain Integumentary: COMPLAINS OF: Abnormal pigmentation, Rash, DENIES: Pruritus, Nail changes, Breast masses, Breast skin changes, Nipple discharge Hematologic/lymphatic: DENIES: Bruising, Lymphadenopathy Immunologic/allergic: DENIES: Eczema, Urticaria Neurologic: DENIES: Abnormal gait, Headache, Localized weakness, Paresthesias, Seizures, Speech Problems, Tremor, Poor Balance Psychiatric: DENIES: Anxiety, Confusion, Mood changes, Depression, Hallucinations, Agitation, Suicidal Ideation, Homicidal Ideation, Delusions Except as stated in HPI: all other systems reviewed are Neg Past Family Social History Allergies: Coded Allergies: codeine (Verified Allergy, Severe, 12/31/17) ketorolac (Verified Allergy, Severe, 12/31/17) vancomycin (Verified Allergy, Severe, 12/31/17) hives, itching, dyspnea penicillin G (Verified Allergy, Intermediate, Rash, 12/31/17) Past Medical History Crohn's disease per history Hepatitis C treatment melissa Recurrent cellulitis Past Surgical History Appendectomy Hysterectomy ? Some bowel surgery for Crohn's Reported Medications Reported Meds & Active Scripts Active No Active Prescriptions or Reported Medications Active Ordered Medications Current Medications Medications (Trade) Dose Ordered Sig/Malgorzata Route Start Time Stop Time Status Last Admin Sodium Chloride 1,000 ml @ 100 mls/hr Q10H IV 12/31/17 18:00 01/01/18 08:49 (NS Flush) 2 ml UNSCH PRN IV FLUSH 12/31/17 16:45 01/01/18 14:58 (NS Flush) 2 ml BID IV FLUSH 12/31/17 21:00 01/01/18 07:36 (Tylenol) 650 mg Q4H PRN PO 12/31/17 16:45 (Zofran Inj) 4 mg Q6H PRN IVP 12/31/17 16:45 01/01/18 11:02 (Narcan Inj) 0.4 mg UNSCH PRN IV PUSH 12/31/17 16:45 (Senokot) 17.2 mg Q12H PRN PO 12/31/17 16:45 (Dulcolax Supp) 10 mg DAILY PRN RECTAL 12/31/17 16:45 (Lactulose Liq) 30 ml DAILY PRN PO 12/31/17 16:45 (Duoneb Neb) 1 ampule Q4HR NEB NEB 12/31/17 20:00 (Mucinex Er) 600 mg BID PO 12/31/17 21:00 01/01/18 07:38 Aztreonam 2000 mg/ Sodium Chloride 100 ml @ 200 mls/hr Q12H IV 12/31/17 23:00 01/01/18 10:56 Metronidazole 100 ml @ 100 mls/hr Q8H IV 12/31/17 21:00 01/01/18 12:38 (Lovenox Inj) 40 mg Q24H SQ 12/31/17 20:00 (Habitrol 21 Mg Patch.24 Hr) 1 patch DAILY T-DERMAL 01/01/18 09:00 01/01/18 07:37 Miscellaneous Information 1 DAILY T-DERMAL 01/01/18 09:00 01/01/18 07:41 (Morphine Inj) 2 mg Q4H PRN IV PUSH 01/01/18 10:00 01/01/18 14:58 ([place] 5-325 Mg) 1 tab Q6H PRN PO 01/01/18 10:15 ([place] 7.5-325 Mg) 1 tab Q6H PRN PO 01/01/18 10:15 01/01/18 14:09 Family History reviewed and NC to current ID problems. Social History reports her 1 year back. She admits to intravenous drug abuse in the past Smokes 1 ppd or more for many years. Does not want to quit. Counseled for 15 mins. Denies alcohol. Physical Exam Vital Signs Vital Signs Date Time Temp Pulse Resp B/P (MAP) Pulse Ox O2 Delivery O2 Flow Rate FiO2 01/01/18 16:00 96.9 70 16 119/81 (94) 96 01/01/18 15:01 18 01/01/18 15:01 18 01/01/18 12:00 80 01/01/18 12:00 95.4 80 17 107/74 (85) 97 01/01/18 08:00 96.5 69 16 104/77 (86) 98 01/01/18 07:41 18 01/01/18 04:58 96.3 100 16 108/71 (83) 96 01/01/18 00:00 98.0 85 18 106/74 (85) 95 12/31/17 20:00 97.2 97 16 120/79 (93) 96 12/31/17 18:55 12/31/17 18:30 96 16 125/92 (103) 96 Room Air Physical Exam GENERAL: This is a thin built, poorly nourished patient, in no apparent distress. SKIN: Chronic skin changes. HEAD: Atraumatic. Normocephalic. No temporal or scalp tenderness. EYES: Pupils equal round and reactive. Extraocular motions intact. No scleral icterus. No injection or drainage. ENT: Nose without bleeding, purulent drainage or septal hematoma. Throat without erythema, tonsillar hypertrophy or exudate. Uvula midline. Airway patent. NECK: Trachea midline. Supple, nontender, no meningeal signs. CARDIOVASCULAR: Heart sounds audible RESPIRATORY: Clear to auscultation. Breath sounds equal bilaterally. No wheezes , rales, or rhonchi. GASTROINTESTINAL: Abdomen soft, non-tender, nondistended. MUSCULOSKELETAL: Bilateral lower extremity dressings patient deferred exam today. Upper extremity with eschar-like coin-shaped lesions. NEUROLOGICAL: Awake and alert. Cranial nerves II through XII intact. Motor and sensory grossly within normal limits. Five out of 5 muscle strength in all muscle groups. Normal speech. Psych cooperative IV line sites with no evidence of infection. Laboratory Laboratory Tests Test 01/01/18 07:21 01/01/18 13:20 White Blood Count 3.4 Red Blood Count 3.87 Hemoglobin 10.1 Hematocrit 29.9 Mean Corpuscular Volume 77.4 Mean Corpuscular Hemoglobin 26.1 Mean Corpuscular Hemoglobin Concent 33.7 Red Cell Distribution Width 16.6 Platelet Count 202 Mean Platelet Volume 8.7 Neutrophils (%) (Auto) 69.0 Lymphocytes (%) (Auto) 22.7 Monocytes (%) (Auto) 6.9 Eosinophils (%) (Auto) 0.1 Basophils (%) (Auto) 1.3 Neutrophils # (Auto) 2.3 Lymphocytes # (Auto) 0.8 Monocytes # (Auto) 0.2 Eosinophils # (Auto) 0.0 Basophils # (Auto) 0.0 CBC Comment DIFF FINAL Differential Comment Prothrombin Time 10.7 Prothromb Time International Ratio 1.1 Blood Urea Nitrogen 11 Creatinine 0.64 Random Glucose 140 Total Protein 5.9 Albumin 1.9 Calcium Level 8.3 Alkaline Phosphatase 88 Aspartate Amino Transf (AST/SGOT) 17 Alanine Aminotransferase (ALT/SGPT) 10 Total Bilirubin 0.1 Sodium Level 139 Potassium Level 4.3 Chloride Level 108 Carbon Dioxide Level 24.7 Anion Gap 6 Estimat Glomerular Filtration Rate 101 Erythrocyte Sedimentation Rate 49 C-Reactive Protein 4.46 Rheumatoid Factor Screen NEGATIVE Rheumatoid Factor Titer Date/Time Source Procedure Growth Status 12/31/17 12:20 Blood Peripheral Aerobic Blood Culture - Preliminary NO GROWTH IN 1 DAY Resulted 12/31/17 12:20 Blood Peripheral Anaerobic Blood Culture - Preliminary NO GROWTH IN 1 DAY Resulted 12/31/17 12:50 Wound Leg Gram Stain - Final Resulted 12/31/17 12:50 Wound Culture - Preliminary Staphylococcus Aureus Strep Not A,B D Resulted Result Diagram: 01/01/18 0721 01/01/18 0721 Imaging Last Impressions Chest X-Ray 12/31/17 1203 Signed Impressions: Service Date/Time: Sunday, December 31, 2017 12:35 - CONCLUSION: 1. Scattered emphysematous changes bilaterally. 2. No focal infiltrate or pulmonary vascular congestion. Thomas Kennedy MD Tibia/Fibula X-Ray 12/31/17 0000 Signed Impressions: Service Date/Time: Sunday, December 31, 2017 13:43 - CONCLUSION: No osteomyelitis. Ata Friedman MD FACR Assessment and Plan Assessment and Plan Chronic lower extremity skin ulcerations with infection versus colonization Staph aureus and strep infection versus colonization Possible lower extremity cellulitis Hepatitis C positive Cryoglobulinemia History of Crohn's disease Penicillin allergy Vanco allergy Recommendations: Discontinue Azactam discontinue Flagyl Start ceftriaxone IV(MSSA and strep). I reviewed with the patient is no history of airway swelling or lip swelling suggestive of anaphylaxis. Follow cultures Follow clinically Discussed with the patient: Needs to quit smoking. Needs follow-up with blade sharpener as well as GI for possible initiation of treatment for hep C. Treatment of hep C may help with controlling these chronic ulcers probably related to cryoglobulinemia. While in the hospital when site clinically evaluated on the subsequent follow- up visit and might consider using oral steroids for a short period of time. Zora Pompa MD Jan 01, 2018 17:48
[2018-01-01] MEDS: cefTRIAXone INJ 2,000 MG in SODIUM CHLORIDE 0.9% INJ 100 ML IV SCH (18:22)
[2018-01-01] MEDS: diphenhydrAMINE HCL 25 MG CAP PO PRN (18:38)
[2018-01-01] MEDS: ENOXAPARIN SODIUM 40 MG/0.4 ML SYRINGE SQ SCH (23:04)
[2018-01-02] VITALS (7 sets, daily range): BP systolic 127–149; BP diastolic 80–103; PULSE 72–107; RESP 16–18; TEMP 95.9–100.5; O2SAT 96–100
--- NOTE | 2018-01-02 00:16 | EKG ---
Date Performed: 12/31/2017 Time Performed: 12:34:15 PTAGE: 42 years EKG: SINUS TACHYCARDIA POSSIBLE RIGHT ATRIAL ENLARGEMENT POSSIBLE LEFT ATRIAL ENLARGEMENT ABNORM AL RHYTHM ECG PREVIOUS TRACING : 11/02/2017 13.14 Compared to prior tracing, no longer with anterior ST/T wa ve changes DOCTOR: Prosper Conner Interpretating Date/Time 01/02/2018 00:14:52
[2018-01-02] MEDS: MORPHINE SULFATE 2 MG/ML INJ IV PUSH PRN ×5 (03:01→20:16)
[2018-01-02] MEDS: SODIUM CHLORIDE 0.9% FLUSH 10 ML FLUSH IV FLUSH PRN ×2 (03:02→07:28)
[2018-01-02] MEDS: ACETAMINOPHEN/HYDROcodone 325 MG/7.5 MG TAB PO PRN ×4 (04:09→22:01)
[2018-01-02] MEDS: RESP: ALBUTEROL 2.5 MG/IPRATROPIUM 0.5 MG NEB (SCH) NEB ×6 (04:36→20:00)
[2018-01-02 06:13] LABS: AUTOMATED NEUTROPHIL # 3.9 TH/MM3 (1.8-7.7); BASOPHIL % 0.7 % (0.0-2.0); EOSINOPHIL # 0.1 TH/MM3 (0-0.4); EOSINOPHIL % 1.4 % (0.0-4.0); HEMATOCRIT 31.4 % (35.0-46.0); HEMOGLOBIN 10.2 GM/DL (11.6-15.3); LYMPH % 24.5 % (9.0-44.0); LYMPHOCYTE # 1.4 TH/MM3 (1.0-4.8); MEAN CELL VOLUME 78.1 FL (80.0-100.0); MEAN CORPUSCULAR HEMOGLOBIN 25.5 PG (27.0-34.0); MEAN CORPUSCULAR HGB CONC 32.6 % (32.0-36.0); MEAN PLATELET VOLUME 8.2 FL (7.0-11.0); MONO % 6.7 % (0.0-8.0); MONOCYTE # 0.4 TH/MM3 (0-0.9); NEUT % 66.7 % (16.0-70.0); PLATELET COUNT 308 TH/MM3 (150-450); RED BLOOD COUNT 4.01 MIL/MM3 (4.00-5.30); RED CELL DISTRIBUTION WIDTH 16.7 % (11.6-17.2); WHITE BLOOD COUNT 5.8 TH/MM3 (4.0-11.0)
[2018-01-02 06:43] LABS: BICARBONATE 26.3 MEQ/L (21.0-32.0); CALCIUM 7.8 MG/DL (8.5-10.1); CREATININE 0.57 MG/DL (0.50-1.00)
[2018-01-02] MEDS: SODIUM CHLOR 0.9% 1000 ML INJ 1,000 ML IV SCH ×2 (07:30→15:21)
[2018-01-02] MEDS: NICOTINE 21 MG/24 HR PATCH T-DERMAL SCH (08:42)
[2018-01-02] MEDS: guaiFENesin E.R. 600 MG TAB PO SCH ×2 (08:42→22:00)
[2018-01-02] MEDS: REMOVE OLD PATCH T-DERMAL SCH (08:44)
[2018-01-02] MEDS: SODIUM CHLORIDE 0.9% FLUSH 10 ML FLUSH IV FLUSH SCH ×2 (08:44→20:16)
--- NOTE | 2018-01-02 11:33 | HHI.PR ---
Subjective Remarks Follow up wounds, bacteremia. Patient states that she feels a little better today. Still with pain from the wounds. No dyspnea, chest pain. Objective Vitals Vital Signs Date Time Temp Pulse Resp B/P (MAP) Pulse Ox O2 Delivery O2 Flow Rate FiO2 01/02/18 10:52 17 01/02/18 08:00 95.9 83 17 140/103 (115) 97 01/02/18 08:00 72 01/02/18 07:33 18 01/02/18 04:00 96.2 84 18 131/84 (100) 97 01/02/18 00:00 97.4 82 18 132/80 (97) 97 01/01/18 20:00 97.0 80 18 120/79 (93) 98 01/01/18 19:22 97 21 01/01/18 16:00 96.9 70 16 119/81 (94) 96 01/01/18 12:00 80 01/01/18 12:00 95.4 80 17 107/74 (85) 97 I/O 01/01/18 01/01/18 01/01/18 01/02/18 01/02/18 01/02/18 07:00 15:00 23:00 07:00 15:00 23:00 Intake Total 780 ml 1920 ml 360 ml Output Total 1400 ml 1500 ml Balance 780 ml 520 ml -1140 ml Intake Oral 580 ml 1920 ml 360 ml IV Total 200 ml Output Urine Total 1400 ml 1500 ml # Voids 3 # Bowel Movements 0 0 Result Diagram: 01/02/18 0452 01/02/18 0452 Imaging Last Impressions Chest X-Ray 12/31/17 1203 Signed Impressions: Service Date/Time: Sunday, December 31, 2017 12:35 - CONCLUSION: 1. Scattered emphysematous changes bilaterally. 2. No focal infiltrate or pulmonary vascular congestion. Thomas Kennedy MD Tibia/Fibula X-Ray 12/31/17 0000 Signed Impressions: Service Date/Time: Sunday, December 31, 2017 13:43 - CONCLUSION: No osteomyelitis. Ata Friedman MD FACR Objective Remarks General: No acute distress. Heart: Regular rate and rhythm. No murmur. Lungs: Clear to auscultation bilaterally. No wheezes, rales, or rhonchi. Breathing is nonlabored. Abdomen: Soft, nontender, nondistended. Extremities: No lower extremity edema. Psych: Alert and oriented. Skin: Multiple wounds on both lower extremities are bandaged. She also has smaller wounds on the fingers of both hands. Procedures None Urinary Catheter: No Vascular Central Line Catheter: No A/P Assessment and Plan 1. Bilateral lower extremity wounds: Patient has ulcerative lesions on both lower extremities. There is a large ulceration on the left lower leg that covers most of the ankle. Continue IV antibiotics. Appreciate vascular surgery and infectious disease recommendations. Wound care consult is pending. Podiatry consult is pending. 2. Bilateral hand wounds: Appreciate hand surgery recommendations. 3. History of COPD: Continue bronchodilators, incentive spirometry. Not currently in exacerbation. 4. History of Crohn's disease: Stable. 5. History of hepatitis C: Follow-up as outpatient. 6. UTI: Continue antibiotics. 7. Tobacco abuse: Counseled to quit smoking. Continue nicotine patch. 8. DVT prophylaxis: Lovenox. 9. Hyponatremia: Resolved. 10. Bacteremia: Blood cultures growing gram positive cocci. Repeat blood cultures. Continue antibiotics. Await further ID of cultures. James Hutchinson MD Jan 02, 2018 11:33
[2018-01-02] MEDS: ONDANSETRON HCL 4 MG/2 ML VIAL IVP PRN (12:06)
[2018-01-02] MEDS: diphenhydrAMINE HCL 25 MG CAP PO PRN ×3 (12:06→22:00)
[2018-01-02] MEDS ORDERED: Vancomycin Consult Pharmacy 1 EA OTHER SCH (12:30)
[2018-01-02] MEDS: VANCOMYCIN INJ 750 MG in SODIUM CHLOR 0.9% 250 ML INJ 250 ML IV SCH (15:21)
[2018-01-02] MEDS: cefTRIAXone INJ 2,000 MG in SODIUM CHLORIDE 0.9% INJ 100 ML IV SCH (17:40)
[2018-01-02] MEDS: ENOXAPARIN SODIUM 40 MG/0.4 ML SYRINGE SQ SCH (20:00)
[2018-01-03] VITALS (8 sets, daily range): BP systolic 99–132; BP diastolic 70–94; PULSE 80–124; RESP 14–20; TEMP 95.7–100.7; O2SAT 91–98
[2018-01-03] MEDS: MORPHINE SULFATE 2 MG/ML INJ IV PUSH PRN ×6 (00:42→21:52)
[2018-01-03] MEDS: SODIUM CHLORIDE 0.9% FLUSH 10 ML FLUSH IV FLUSH PRN ×2 (00:42→05:11)
[2018-01-03] MEDS: VANCOMYCIN INJ 750 MG in SODIUM CHLOR 0.9% 250 ML INJ 250 ML IV SCH ×3 (00:50→15:04)
[2018-01-03] MEDS: RESP: ALBUTEROL 2.5 MG/IPRATROPIUM 0.5 MG NEB (SCH) NEB ×6 (03:00→19:28)
[2018-01-03] MEDS: diphenhydrAMINE HCL 25 MG CAP PO PRN ×4 (04:07→20:30)
[2018-01-03] MEDS: SODIUM CHLOR 0.9% 1000 ML INJ 1,000 ML IV SCH ×2 (05:12→16:53)
[2018-01-03] MEDS: guaiFENesin E.R. 600 MG TAB PO SCH ×2 (08:53→20:30)
[2018-01-03] MEDS: SODIUM CHLORIDE 0.9% FLUSH 10 ML FLUSH IV FLUSH SCH ×2 (08:53→20:31)
[2018-01-03] MEDS: NICOTINE 21 MG/24 HR PATCH T-DERMAL SCH (08:54)
[2018-01-03] MEDS: REMOVE OLD PATCH T-DERMAL SCH (08:54)
--- NOTE | 2018-01-03 09:46 | PD.CONS ---
History of Present Illness Service Foot and ankle surgery/podiatry Consult Requested By Reason for Consult bilateral lower extremity ulcers Primary Care Physician No Primary Care Physician Diagnoses: History of Present Illness Podiatry consulted for 42-year-old female well known to the service with past medical history recurrent cellulitis, hep Celsius, IV drug abuse, history of Crohn's disease, COPD for bilateral lower extremity ulcers. Patient was admitted back in October 2017 and she was discharged on Silvadene and dry sterile dressings. She states she has been performing dressing changes. When asked why she did not follow-up patient stated she did not get a chance to. She reports extreme pain in bilateral legs. Review of Systems Constitutional: DENIES: Fever Eyes: DENIES: Blurred vision Respiratory: DENIES: Cough, Shortness of breath Cardiovascular: DENIES: Chest pain Musculoskeletal: DENIES: Joint pain Neurologic: COMPLAINS OF: Abnormal gait Psychiatric: DENIES: Anxiety, Confusion, Mood changes Past Family Social History Allergies: Coded Allergies: codeine (Verified Allergy, Severe, 12/31/17) ketorolac (Verified Allergy, Severe, 12/31/17) vancomycin (Verified Allergy, Severe, 12/31/17) hives, itching, dyspnea penicillin G (Verified Allergy, Intermediate, Rash, 12/31/17) Past Medical History As reported in HPI Active Ordered Medications Current Medications Medications (Trade) Dose Ordered Sig/Malgorzata Route Start Time Stop Time Status Last Admin Sodium Chloride 1,000 ml @ 100 mls/hr Q10H IV 12/31/17 18:00 01/03/18 05:12 (NS Flush) 2 ml UNSCH PRN IV FLUSH 12/31/17 16:45 01/03/18 05:11 (NS Flush) 2 ml BID IV FLUSH 12/31/17 21:00 01/03/18 08:53 (Tylenol) 650 mg Q4H PRN PO 12/31/17 16:45 (Zofran Inj) 4 mg Q6H PRN IVP 12/31/17 16:45 01/02/18 12:06 (Narcan Inj) 0.4 mg UNSCH PRN IV PUSH 12/31/17 16:45 (Senokot) 17.2 mg Q12H PRN PO 12/31/17 16:45 (Dulcolax Supp) 10 mg DAILY PRN RECTAL 12/31/17 16:45 (Lactulose Liq) 30 ml DAILY PRN PO 12/31/17 16:45 (Duoneb Neb) 1 ampule Q4HR NEB NEB 12/31/17 20:00 (Mucinex Er) 600 mg BID PO 12/31/17 21:00 01/03/18 08:53 (Lovenox Inj) 40 mg Q24H SQ 12/31/17 20:00 01/01/18 23:04 (Habitrol 21 Mg Patch.24 Hr) 1 patch DAILY T-DERMAL 01/01/18 09:00 01/03/18 08:54 Miscellaneous Information 1 DAILY T-DERMAL 01/01/18 09:00 01/03/18 08:54 (Morphine Inj) 2 mg Q4H PRN IV PUSH 01/01/18 10:00 01/03/18 13:21 ([place] 5-325 Mg) 1 tab Q6H PRN PO 01/01/18 10:15 01/03/18 04:08 ([place] 7.5-325 Mg) 1 tab Q6H PRN PO 01/01/18 10:15 01/03/18 09:48 Ceftriaxone Sodium 2000 mg/ Sodium Chloride 100 ml @ 200 mls/hr Q24H IV 01/01/18 18:00 01/02/18 17:40 (Benadryl) 25 mg Q6H PRN PO 01/01/18 18:30 01/03/18 09:48 Pharmacy Profile Note 0 ml @ 0 mls/hr UNSCH OTHER 01/02/18 12:30 Vancomycin HCl 750 mg/Sodium Chloride 257.5 ml @ 250 mls/hr Q8H IV 01/02/18 15:00 01/03/18 06:24 Miscellaneous Information SPECIFIC LAB TO BE SURY... ONCE ONCE .XX 01/03/18 14:45 01/03/18 14:46 (Santyl Oint) 1 applic DAILY TOPICAL 01/03/18 09:45 01/03/18 13:20 Physical Exam Vital Signs Vital Signs Date Time Temp Pulse Resp B/P (MAP) Pulse Ox O2 Delivery O2 Flow Rate FiO2 01/03/18 08:00 100.0 94 17 115/87 (96) 95 01/03/18 04:00 98.4 112 20 130/87 (101) 95 01/03/18 00:00 100.7 103 18 132/94 (107) 94 01/02/18 22:06 97 Nasal Cannula 01/02/18 20:00 100.5 101 18 147/93 (111) 96 01/02/18 16:59 18 01/02/18 16:00 97.2 107 16 127/86 (100) 97 01/02/18 15:24 18 01/02/18 12:00 106 01/02/18 12:00 95.9 103 17 149/98 (115) 100 Physical Exam GENERAL: This is a well-nourished, well-developed patient, in no apparent distress. SKIN: . Cool and dry. HEAD: Atraumatic. Normocephalic. EYES: Pupils equal round and reactive. Extraocular motions intact. No scleral icterus. No injection or drainage. ENT: Airway patent. NECK: Trachea midline. . RESPIRATORY:Non labored breathing. MUSCULOSKELETAL: Pain on palpation to bilateral LE. NEUROLOGICAL: Awake and alert. Normal speech. Vasc: DP / PT 2/4 bilaterally. Capillary refill time under 3 seconds to bilateral digits. Neuro: Gross incision intact. No hyperalgesia noted. Derm: Bilateral lower extremity ulcers with granular bases, right lateral ulcer noted to have eschar as well as left posterior calcaneal ulcer. no thai wound erythema noted. No local signs of infection. No probe to bone, no exposed tendon or muscle MSK: Pain on palpation to bilateral LE. Laboratory Date/Time Source Procedure Growth Status 01/02/18 13:05 Blood Peripheral Aerobic Blood Culture Pending Received 01/02/18 13:05 Blood Peripheral Anaerobic Blood Culture Pending Received 12/31/17 12:50 Wound Leg Gram Stain - Final Complete 12/31/17 12:50 Wound Culture - Final Staphylococcus Aureus Strep Not A,B D Complete Result Diagram: 01/02/18 0452 01/02/18 0452 Imaging Last Impressions Chest X-Ray 12/31/17 1203 Signed Impressions: Service Date/Time: Sunday, December 31, 2017 12:35 - CONCLUSION: 1. Scattered emphysematous changes bilaterally. 2. No focal infiltrate or pulmonary vascular congestion. Thomsa Kennedy MD Tibia/Fibula X-Ray 12/31/17 0000 Signed Impressions: Service Date/Time: Sunday, December 31, 2017 13:43 - CONCLUSION: No osteomyelitis. Ata Friedman MD FACR Assessment and Plan Assessment and Plan 42-year-old female with bilateral lower extremity ulcers Patient evaluated examined of all questions answered Significant improvement noted from last admission in October granulation noted to base of the ulcers Continue with local wound care Local wound care to consist of Santyl with moist to dry dressing Encouraged patient to follow up in office with myself Dr. Zhou Podiatry signing off Please re-consult as needed Steph Zhou DPM Jan 03, 2018 09:46
[2018-01-03] MEDS: ACETAMINOPHEN/HYDROcodone 325 MG/7.5 MG TAB PO PRN ×3 (09:48→20:30)
--- NOTE | 2018-01-03 10:20 | PD.CAR.PN ---
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 and hence the changes Patient does not require any major vascular reconstruction at this time but in the face of advanced changes in her foot this may not be reversible and she may end up with an amputation We will be available but nothing to add right now to the care from vascular point Objective: Vital Signs Date Time Temp Pulse Resp B/P (MAP) Pulse Ox O2 Delivery O2 Flow Rate FiO2 01/03/18 10:12 95 01/03/18 08:00 100.0 94 17 115/87 (96) 95 01/03/18 04:00 98.4 112 20 130/87 (101) 95 01/03/18 00:00 100.7 103 18 132/94 (107) 94 01/02/18 22:06 97 Nasal Cannula 01/02/18 20:00 100.5 101 18 147/93 (111) 96 01/02/18 16:59 18 01/02/18 16:00 97.2 107 16 127/86 (100) 97 01/02/18 15:24 18 01/02/18 12:00 106 01/02/18 12:00 95.9 103 17 149/98 (115) 100 Result Diagram: 01/02/1845101/02/18451 David Mays MD Jan 03, 2018 10:20
--- NOTE | 2018-01-03 11:34 | HHI.PR ---
Subjective Remarks Follow up leg wounds, bacteremia. Patient states that the pain is a little better today. No chest pain, dyspnea. Some nausea. Objective Vitals Vital Signs Date Time Temp Pulse Resp B/P (MAP) Pulse Ox O2 Delivery O2 Flow Rate FiO2 01/03/18 10:12 95 01/03/18 08:00 100.0 94 17 115/87 (96) 95 01/03/18 04:00 98.4 112 20 130/87 (101) 95 01/03/18 00:00 100.7 103 18 132/94 (107) 94 01/02/18 22:06 97 Nasal Cannula 01/02/18 20:00 100.5 101 18 147/93 (111) 96 01/02/18 16:59 18 01/02/18 16:00 97.2 107 16 127/86 (100) 97 01/02/18 15:24 18 01/02/18 12:00 106 01/02/18 12:00 95.9 103 17 149/98 (115) 100 I/O 01/02/18 01/02/18 01/02/18 01/03/18 01/03/18 01/03/18 07:00 15:00 23:00 07:00 15:00 23:00 Intake Total 360 ml 1120 ml 1497.5 ml Output Total 1500 ml 1200 ml Balance -1140 ml 1120 ml 297.5 ml Intake Oral 360 ml 1120 ml 240 ml IV Total 1257.5 ml Output Urine Total 1500 ml 1200 ml # Voids 5 # Bowel Movements 0 2 0 Result Diagram: 01/02/18 0452 01/02/18 0452 Imaging Last Impressions Chest X-Ray 12/31/17 1203 Signed Impressions: Service Date/Time: Sunday, December 31, 2017 12:35 - CONCLUSION: 1. Scattered emphysematous changes bilaterally. 2. No focal infiltrate or pulmonary vascular congestion. Thomas Kennedy MD Tibia/Fibula X-Ray 12/31/17 0000 Signed Impressions: Service Date/Time: Sunday, December 31, 2017 13:43 - CONCLUSION: No osteomyelitis. Ata Friedman MD FACR Objective Remarks General: No acute distress. Heart: Regular rate and rhythm. No murmur. Lungs: Clear to auscultation bilaterally. No wheezes, rales, or rhonchi. Breathing is nonlabored. Abdomen: Soft, nontender, nondistended. Extremities: No lower extremity edema. Psych: Alert and oriented. Skin: Multiple wounds on both lower extremities are bandaged. She also has smaller wounds on the fingers of both hands. Procedures None Urinary Catheter: No Vascular Central Line Catheter: No A/P Assessment and Plan 1. Bilateral lower extremity wounds: Patient has ulcerative lesions on both lower extremities. There is a large ulceration on the left lower leg that covers most of the ankle. Continue IV antibiotics. Appreciate vascular surgery , podiatry, and infectious disease recommendations. Continue Santyl ointment with dressing changes. 2. Bilateral hand wounds: Appreciate hand surgery recommendations. 3. History of COPD: Continue bronchodilators, incentive spirometry. Not currently in exacerbation. 4. History of Crohn's disease: Stable. 5. History of hepatitis C: Follow-up as outpatient. 6. UTI: Continue antibiotics. 7. Tobacco abuse: Counseled to quit smoking. Continue nicotine patch. 8. DVT prophylaxis: Lovenox. 9. Hyponatremia: Resolved. 10. Bacteremia: Blood cultures growing gram positive cocci. Repeat blood cultures. Continue antibiotics. Await further ID of cultures. Patient has continued to have fevers. James Hutchinson MD Jan 03, 2018 11:34
[2018-01-03 13:01] LABS: ANA SCREEN POS (NEG)
[2018-01-03] MEDS: COLLAGENASE OINT 30 GM TUBE TOPICAL SCH (13:20)
[2018-01-03] MEDS ORDERED: PHARMACY ORDERED LAB ONE (14:45)
--- NOTE | 2018-01-03 17:05 | HHI.IDPN ---
Subjective Subjective Remarks is a 42 y/o CF with PMHx significant for recurrent cellulitis, Hepatitis C treatment naive,, IV drug abuse, reported history of Crohn's disease , COPD. Patient was seen, evaluated, and admitted to the hospital in October 2017 for evaluation of lower extremity cellulitis. Patient states then she did have some wounds but they were healing. Upon review of the records it appears that she was discharged on a tapering steroid dose. She was unable to follow-up with any outpatient providers. She states over the last week the wound that were once scabbed over and black and have began to blister and peel off. She reports subjective fever and chills. She states that she feels weak. She reports severe pain in the lower extremities. During her past admission and her workup was positive for hepatitis C as well as cryoglobulins were positive. ID consulted for evaluation and MMent of cellulitis bilateral LE and vasculitis. Overnight events reviewed. No fever No rash no diarrhea Has a girlfriend living in the room with her. Antibiotics Ceftriaxone IV Vancomycin IV Lines Line sites with no evidence of infection. Past Medical History Past Medical History Crohn's disease per history Hepatitis C treatment melissa Recurrent cellulitis Past Surgical History Appendectomy Hysterectomy ? Some bowel surgery for Crohn's Allergies: Coded Allergies: codeine (Verified Allergy, Severe, 12/31/17) ketorolac (Verified Allergy, Severe, 12/31/17) penicillin G (Verified Allergy, Intermediate, Rash, 12/31/17) Objective . Vital Signs Date Time Temp Pulse Resp B/P (MAP) Pulse Ox O2 Delivery O2 Flow Rate FiO2 01/03/18 13:26 18 01/03/18 10:48 18 01/03/18 10:12 95 01/03/18 10:00 95.7 120 19 104/74 (84) 91 01/03/18 08:00 100.0 94 17 115/87 (96) 95 01/03/18 08:00 95 01/03/18 04:00 98.4 112 20 130/87 (101) 95 01/03/18 00:00 100.7 103 18 132/94 (107) 94 01/02/18 22:06 97 Nasal Cannula 01/02/18 20:00 100.5 101 18 147/93 (111) 96 . Laboratory Tests Test 01/02/18 04:52 White Blood Count 5.8 TH/MM3 Red Blood Count 4.01 MIL/MM3 Hemoglobin 10.2 GM/DL Hematocrit 31.4 % Mean Corpuscular Volume 78.1 FL Mean Corpuscular Hemoglobin 25.5 PG Mean Corpuscular Hemoglobin Concent 32.6 % Red Cell Distribution Width 16.7 % Platelet Count 308 TH/MM3 Mean Platelet Volume 8.2 FL Neutrophils (%) (Auto) 66.7 % Lymphocytes (%) (Auto) 24.5 % Monocytes (%) (Auto) 6.7 % Eosinophils (%) (Auto) 1.4 % Basophils (%) (Auto) 0.7 % Neutrophils # (Auto) 3.9 TH/MM3 Lymphocytes # (Auto) 1.4 TH/MM3 Monocytes # (Auto) 0.4 TH/MM3 Eosinophils # (Auto) 0.1 TH/MM3 Basophils # (Auto) 0.0 TH/MM3 CBC Comment DIFF FINAL Differential Comment Laboratory Tests Test 01/02/18 04:52 Blood Urea Nitrogen 6 MG/DL Creatinine 0.57 MG/DL Random Glucose 89 MG/DL Calcium Level 7.8 MG/DL Sodium Level 137 MEQ/L Potassium Level 4.9 MEQ/L Chloride Level 103 MEQ/L Carbon Dioxide Level 26.3 MEQ/L Anion Gap 8 MEQ/L Estimat Glomerular Filtration Rate 115 ML/MIN C-Reactive Protein 2.30 MG/DL Microbiology Date/Time Source Procedure Growth Status 01/02/18 13:05 Blood Peripheral Aerobic Blood Culture - Preliminary NO GROWTH IN 1 DAY Resulted 01/02/18 13:05 Blood Peripheral Anaerobic Blood Culture - Preliminary NO GROWTH IN 1 DAY Resulted 01/02/18 12:59 Blood Peripheral Aerobic Blood Culture - Preliminary NO GROWTH IN 1 DAY Resulted 01/02/18 12:59 Blood Peripheral Anaerobic Blood Culture - Preliminary NO GROWTH IN 1 DAY Resulted Imaging Last Impressions Chest X-Ray 12/31/17 1203 Signed Impressions: Service Date/Time: Sunday, December 31, 2017 12:35 - CONCLUSION: 1. Scattered emphysematous changes bilaterally. 2. No focal infiltrate or pulmonary vascular congestion. Thomas Kennedy MD Tibia/Fibula X-Ray 12/31/17 0000 Signed Impressions: Service Date/Time: Sunday, December 31, 2017 13:43 - CONCLUSION: No osteomyelitis. Ata Friedman MD FACR Physical Exam GENERAL: This is a thin built, poorly nourished patient, in no apparent distress. SKIN: Chronic skin changes. HEAD: Atraumatic. Normocephalic. No temporal or scalp tenderness. EYES: Pupils equal round and reactive. Extraocular motions intact. No scleral icterus. No injection or drainage. ENT: Nose without bleeding, purulent drainage or septal hematoma. Throat without erythema, tonsillar hypertrophy or exudate. Uvula midline. Airway patent. NECK: Trachea midline. Supple, nontender, no meningeal signs. CARDIOVASCULAR: Heart sounds audible RESPIRATORY: Clear to auscultation. Breath sounds equal bilaterally. No wheezes , rales, or rhonchi. GASTROINTESTINAL: Abdomen soft, non-tender, nondistended. MUSCULOSKELETAL: Bilateral lower extremity dressings patient deferred exam today. Upper extremity with eschar-like coin-shaped lesions. NEUROLOGICAL: Awake and alert. Cranial nerves II through XII intact. Motor and sensory grossly within normal limits. Five out of 5 muscle strength in all muscle groups. Normal speech. Psych cooperative IV line sites with no evidence of infection. Assessment & Plan Remarks Chronic lower extremity skin ulcerations with infection versus colonization Staph aureus and strep infection versus colonization Possible lower extremity cellulitis Hepatitis C positive Cryoglobulinemia History of Crohn's disease Penicillin allergy Vanco allergy Recommendations: Continue ceftriaxone IV (MSSA and strep). Discontinue vancomycin IV 2-D echo no report in chart. Nurse as well as Dr. Hutchinson made aware. If ECHO negative for endocarditis and repeat blood cultures negative may be able to DC on shorter regimen. Needs wound care established. consult for hyperbaric oxygen and wound care clinic on discharge. Follow clinically Zora Pompa MD Jan 03, 2018 17:05
[2018-01-03] MEDS: cefTRIAXone INJ 2,000 MG in SODIUM CHLORIDE 0.9% INJ 100 ML IV SCH (17:35)
[2018-01-03] MEDS: ENOXAPARIN SODIUM 40 MG/0.4 ML SYRINGE SQ SCH (20:00)
[2018-01-03] MEDS ORDERED: VANCOMYCIN 1 GM/200 ML PREMIX IV SCH (23:00)
[2018-01-04] VITALS (9 sets, daily range): BP systolic 105–150; BP diastolic 72–91; PULSE 72–110; RESP 14–17; TEMP 95.9–98.6; O2SAT 92–98
[2018-01-04] MEDS: RESP: ALBUTEROL 2.5 MG/IPRATROPIUM 0.5 MG NEB (SCH) NEB ×6 (00:27→19:48)
[2018-01-04] MEDS: ACETAMINOPHEN/HYDROcodone 325 MG/7.5 MG TAB PO PRN ×4 (02:41→21:30)
[2018-01-04] MEDS: diphenhydrAMINE HCL 25 MG CAP PO PRN ×4 (02:43→21:31)
[2018-01-04] MEDS: SODIUM CHLOR 0.9% 1000 ML INJ 1,000 ML IV SCH ×3 (02:53→20:00)
[2018-01-04] MEDS: MORPHINE SULFATE 2 MG/ML INJ IV PUSH PRN ×6 (03:49→23:54)
[2018-01-04] MEDS: REMOVE OLD PATCH T-DERMAL SCH (07:54)
[2018-01-04] MEDS: SODIUM CHLORIDE 0.9% FLUSH 10 ML FLUSH IV FLUSH SCH ×2 (07:54→19:58)
[2018-01-04] MEDS: guaiFENesin E.R. 600 MG TAB PO SCH ×2 (07:55→19:58)
[2018-01-04] MEDS: COLLAGENASE OINT 30 GM TUBE TOPICAL SCH (07:55)
[2018-01-04] MEDS: NICOTINE 21 MG/24 HR PATCH T-DERMAL SCH (07:55)
--- NOTE | 2018-01-04 14:42 | ECHRPT ---
Indication: vasculitis vs emboli CONCLUSIONS The left ventricle is not well visualized. Normal left ventricular size. Wall thickness is normal. The left ventricular systolic function is normal with an estimated ejection fraction in the range of 50-55%. No definite regional wall motion abnormalities. Structurally normal mitral valve. [id number] mitral valve regurgitation. The aortic valve is not well visualized. Structurally normal tricuspid valve. There is trace tricuspid valve regurgitation. BP: / HR: Rhythm: MEASUREMENTS (Male / Female) Normal Values Technical Quality:Fair 2D ECHO LV Diastolic Diameter PLAX 4.9 cm 4.2 - 5.9 / 3.9 - 5.3 cm LV Systolic Diameter PLAX 3.9 cm IVS Diastolic Thickness 0.7 cm 0.6 - 1.0 / 0.6 - 0.9 cm LVPW Diastolic Thickness 0.8 cm 0.6 - 1.0 / 0.6 - 0.9 cm LV Relative Wall Thickness 0.3 RV Internal Dim ED PLAX 2.6 cm M-MODE Aortic Root Diameter MM 3.4 cm LA Systolic Diameter MM 2.1 cm LA Ao Ratio MM 0.6 AV Cusp Separation MM 2.4 cm DOPPLER Mitral E Point Velocity 55.3 cm/s Mitral A Point Velocity 56.8 cm/s Mitral E to A Ratio 1.0 LV E' Lateral Velocity 7.6 cm/s Mitral E to LV E' Lateral Ratio 7.3 LV E' Septal Velocity 6.2 cm/s Mitral E to LV E' Septal Ratio 8.9 FINDINGS LEFT VENTRICLE The left ventricle is not well visualized. Normal left ventricular size. Wall thickness is normal. The left ventricular systolic function is normal with an estimated ejection fraction in the range of 50-55%. No definite regional wall motion abnormalities. RIGHT VENTRICLE Normal right ventricular size and systolic function. LEFT ATRIUM The left atrial size is normal. RIGHT ATRIUM The right atrial size is normal. ATRIAL SEPTUM Normal atrial septal thickness without atrial level shunting by limited color doppler interrogation. AORTA The aortic root and proximal ascending aorta are normal in size on limited imaging. MITRAL VALVE Structurally normal mitral valve. [id number] mitral valve regurgitation. AORTIC VALVE The aortic valve is not well visualized. TRICUSPID VALVE Structurally normal tricuspid valve. There is trace tricuspid valve regurgitation. PULMONARY VALVE The pulmonary valve is not well visualized. VESSELS The inferior vena cava is normal in size. PERICARDIUM No pericardial effusion. Daryl Ferguson MD (Electronically Signed) Final Date:04 January 2018 14:42
--- NOTE | 2018-01-04 15:57 | HHI.PR ---
Subjective Remarks The patient reported that the pain medications were helping. She said that once she leaves the hospital she will be staying at a hotel. She said she worked with physical therapy today. Discussed with nursing. Objective Vitals Vital Signs Date Time Temp Pulse Resp B/P (MAP) Pulse Ox O2 Delivery O2 Flow Rate FiO2 01/04/18 12:00 95.9 91 15 110/80 (90) 95 01/04/18 08:47 97 01/04/18 08:00 96.9 72 16 120/88 (99) 97 01/04/18 04:00 98.6 81 14 110/72 (85) 98 01/04/18 04:00 90 01/04/18 03:54 18 01/04/18 03:41 18 01/04/18 00:00 79 01/04/18 00:00 98.6 81 14 105/74 (84) 98 01/03/18 20:00 89 01/03/18 20:00 98.6 80 14 102/74 (83) 98 01/03/18 16:00 124 01/03/18 16:00 99.0 109 17 99/70 (80) 94 I/O 01/03/18 01/03/18 01/03/18 01/04/18 01/04/18 01/04/18 07:00 15:00 23:00 07:00 15:00 23:00 Intake Total 1497.5 ml 950 ml 1000 ml Output Total 1200 ml 1050 ml Balance 297.5 ml -100 ml 1000 ml Intake Oral 240 ml 850 ml IV Total 1257.5 ml 100 ml 1000 ml Output Urine Total 1200 ml 1050 ml # Bowel Movements 0 0 Result Diagram: 01/02/18 0452 01/02/18 0452 Imaging Last Impressions Chest X-Ray 12/31/17 1203 Signed Impressions: Service Date/Time: Sunday, December 31, 2017 12:35 - CONCLUSION: 1. Scattered emphysematous changes bilaterally. 2. No focal infiltrate or pulmonary vascular congestion. Thomas Kennedy MD Tibia/Fibula X-Ray 12/31/17 0000 Signed Impressions: Service Date/Time: Sunday, December 31, 2017 13:43 - CONCLUSION: No osteomyelitis. Ata Friedman MD FACR Objective Remarks General: No acute distress. HEENT: NC, AT. Heart: Regular rate and rhythm. No murmur. Lungs: Clear to auscultation bilaterally. No wheezes, rales, or rhonchi. Breathing is nonlabored. Abdomen: Soft, nontender, nondistended. Extremities: No lower extremity edema. Neuro: Alert and oriented. Skin: Multiple wounds on both lower extremities are bandaged. She also has smaller wounds on the fingers of both hands. Psych: Mood and affect appropriate. Procedures None Medications and IVs Current Medications Medications (Trade) Dose Ordered Sig/Malgorzata Route Start Time Stop Time Status Last Admin Sodium Chloride 1,000 ml @ 100 mls/hr Q10H IV 12/31/17 18:00 01/04/18 10:49 (NS Flush) 2 ml UNSCH PRN IV FLUSH 12/31/17 16:45 01/03/18 05:11 (NS Flush) 2 ml BID IV FLUSH 12/31/17 21:00 01/04/18 07:54 (Tylenol) 650 mg Q4H PRN PO 12/31/17 16:45 (Zofran Inj) 4 mg Q6H PRN IVP 12/31/17 16:45 01/02/18 12:06 (Narcan Inj) 0.4 mg UNSCH PRN IV PUSH 12/31/17 16:45 (Senokot) 17.2 mg Q12H PRN PO 12/31/17 16:45 (Dulcolax Supp) 10 mg DAILY PRN RECTAL 12/31/17 16:45 (Lactulose Liq) 30 ml DAILY PRN PO 12/31/17 16:45 (Duoneb Neb) 1 ampule Q4HR NEB NEB 12/31/17 20:00 (Mucinex Er) 600 mg BID PO 12/31/17 21:00 01/04/18 07:55 (Lovenox Inj) 40 mg Q24H SQ 12/31/17 20:00 01/01/18 23:04 (Habitrol 21 Mg Patch.24 Hr) 1 patch DAILY T-DERMAL 01/01/18 09:00 01/04/18 07:55 Miscellaneous Information 1 DAILY T-DERMAL 01/01/18 09:00 01/04/18 07:54 (Morphine Inj) 2 mg Q4H PRN IV PUSH 01/01/18 10:00 01/04/18 12:32 ([place] 5-325 Mg) 1 tab Q6H PRN PO 01/01/18 10:15 01/03/18 04:08 ([place] 7.5-325 Mg) 1 tab Q6H PRN PO 01/01/18 10:15 01/04/18 15:21 Ceftriaxone Sodium 2000 mg/ Sodium Chloride 100 ml @ 200 mls/hr Q24H IV 01/01/18 18:00 01/03/18 17:35 (Benadryl) 25 mg Q6H PRN PO 01/01/18 18:30 01/04/18 15:23 (Santyl Oint) 1 applic DAILY TOPICAL 01/03/18 09:45 01/04/18 07:55 A/P Assessment and Plan Bilateral lower extremity wounds/ bacteremia Patient has ulcerative lesions on both lower extremities. There is a large ulceration on the left lower leg that covers most of the ankle. Appreciate vascular surgery, podiatry, and infectious disease recommendations. Blood cultures growing staph aureus and staph epidermidis. Wound culture growing strep and staph aureus. - Continue Santyl ointment with dressing changes. - continue IV antibiotics. - wound physician consult pending. Bilateral hand wounds Appreciate hand surgery recommendations. - autoimmune work-up in progress. AMIE is positive. History of COPD Stable. - Continue bronchodilators, incentive spirometry. Tobacco abuse Counseled to quit smoking. - Continue nicotine patch. DVT prophylaxis: Balaji Bellamy DO Jan 04, 2018 15:57
[2018-01-04] MEDS: cefTRIAXone INJ 2,000 MG in SODIUM CHLORIDE 0.9% INJ 100 ML IV SCH (16:45)
[2018-01-04] MEDS: ENOXAPARIN SODIUM 40 MG/0.4 ML SYRINGE SQ SCH (19:58)
[2018-01-05] VITALS: BP 149/82; PULSE 102; RESP 16; TEMP 98.4; O2SAT 95
[2018-01-05 04:00] VITALS: BP 137/62; PULSE 92; RESP 16; TEMP 98.9; O2SAT 97
[2018-01-05] MEDS: ACETAMINOPHEN/HYDROcodone 325 MG/7.5 MG TAB PO PRN ×4 (04:27→23:02)
[2018-01-05] MEDS: diphenhydrAMINE HCL 25 MG CAP PO PRN ×4 (04:28→23:02)
[2018-01-05] MEDS: MORPHINE SULFATE 2 MG/ML INJ IV PUSH PRN ×5 (05:35→22:10)
[2018-01-05 08:00] VITALS: BP 138/85; PULSE 79; PULSE 84; RESP 17; TEMP 96.3; O2SAT 96
[2018-01-05] MEDS: guaiFENesin E.R. 600 MG TAB PO SCH ×2 (09:12→20:42)
[2018-01-05] MEDS: NICOTINE 21 MG/24 HR PATCH T-DERMAL SCH (09:13)
[2018-01-05] MEDS: SODIUM CHLORIDE 0.9% FLUSH 10 ML FLUSH IV FLUSH SCH ×2 (09:13→20:42)
[2018-01-05] MEDS: REMOVE OLD PATCH T-DERMAL SCH (09:13)
[2018-01-05] MEDS: SODIUM CHLOR 0.9% 1000 ML INJ 1,000 ML IV SCH ×3 (09:14→22:12)
[2018-01-05] MEDS: COLLAGENASE OINT 30 GM TUBE TOPICAL SCH (09:16)
[2018-01-05 10:40] LABS: ANA PATTERN SPECKLED
[2018-01-05 12:00] VITALS: BP 138/92; PULSE 105; PULSE 106; RESP 17; TEMP 97.6; O2SAT 92
[2018-01-05 12:44] LABS: HEMATOCRIT 32.8 % (35.0-46.0); HEMOGLOBIN 10.7 GM/DL (11.6-15.3); MEAN CELL VOLUME 78.1 FL (80.0-100.0); MEAN CORPUSCULAR HEMOGLOBIN 25.4 PG (27.0-34.0); MEAN CORPUSCULAR HGB CONC 32.5 % (32.0-36.0); MEAN PLATELET VOLUME 7.7 FL (7.0-11.0); PLATELET COUNT 225 TH/MM3 (150-450); WHITE BLOOD COUNT 3.4 TH/MM3 (4.0-11.0)
[2018-01-05 12:46] LABS: BICARBONATE 26.2 MEQ/L (21.0-32.0); CALCIUM 7.9 MG/DL (8.5-10.1); CREATININE 0.54 MG/DL (0.50-1.00)
--- NOTE | 2018-01-05 15:14 | HHI.PR ---
Subjective Remarks The patient was shaving her legs. She said that she had significant pain, especially in her left heel. She said that she had some numbness and tingling in the left foot. Discussed with nursing. Objective Vitals Vital Signs Date Time Temp Pulse Resp B/P (MAP) Pulse Ox O2 Delivery O2 Flow Rate FiO2 01/05/18 12:00 97.6 105 17 138/92 (107) 92 01/05/18 08:00 79 01/05/18 08:00 96.3 84 17 138/85 (102) 96 01/05/18 05:40 17 01/05/18 05:27 18 01/05/18 04:00 98.9 92 16 137/62 (87) 97 01/05/18 00:00 98.4 102 16 149/82 (104) 95 01/04/18 23:58 105 01/04/18 20:00 98.4 102 16 150/89 (109) 95 01/04/18 19:45 101 01/04/18 16:00 98.3 110 17 146/91 (109) 92 I/O 01/04/18 01/04/18 01/04/18 01/05/18 01/05/18 01/05/18 07:00 15:00 23:00 07:00 15:00 23:00 Intake Total 1000 ml 1775 ml 480 ml Output Total 1100 ml Balance 1000 ml 675 ml 480 ml Intake Oral 675 ml 480 ml IV Total 1000 ml 1100 ml Output Urine Total 1100 ml # Voids 2 # Bowel Movements 1 0 Result Diagram: 01/05/18 1139 01/05/18 1139 Imaging Last Impressions Chest X-Ray 12/31/17 1203 Signed Impressions: Service Date/Time: Sunday, December 31, 2017 12:35 - CONCLUSION: 1. Scattered emphysematous changes bilaterally. 2. No focal infiltrate or pulmonary vascular congestion. Thomas Kennedy MD Tibia/Fibula X-Ray 12/31/17 0000 Signed Impressions: Service Date/Time: Sunday, December 31, 2017 13:43 - CONCLUSION: No osteomyelitis. Ata Friedman MD FACR Objective Remarks General: No acute distress. HEENT: NC, AT. Heart: Regular rate and rhythm. No murmur. Lungs: Clear to auscultation bilaterally. No wheezes, rales, or rhonchi. Breathing is nonlabored. Abdomen: Soft, nontender, nondistended. Extremities: No lower extremity edema. Neuro: Alert and oriented. Skin: Multiple wounds on both lower extremities. She also has smaller wounds on the fingers of both hands. Psych: Mood and affect appropriate. Procedures None Medications and IVs Current Medications Medications (Trade) Dose Ordered Sig/Malgorzata Route Start Time Stop Time Status Last Admin Sodium Chloride 1,000 ml @ 100 mls/hr Q10H IV 12/31/17 18:00 01/05/18 09:14 (NS Flush) 2 ml UNSCH PRN IV FLUSH 12/31/17 16:45 01/03/18 05:11 (NS Flush) 2 ml BID IV FLUSH 12/31/17 21:00 01/04/18 19:58 (Tylenol) 650 mg Q4H PRN PO 12/31/17 16:45 (Zofran Inj) 4 mg Q6H PRN IVP 12/31/17 16:45 01/02/18 12:06 (Narcan Inj) 0.4 mg UNSCH PRN IV PUSH 12/31/17 16:45 (Senokot) 17.2 mg Q12H PRN PO 12/31/17 16:45 (Dulcolax Supp) 10 mg DAILY PRN RECTAL 12/31/17 16:45 (Lactulose Liq) 30 ml DAILY PRN PO 12/31/17 16:45 (Mucinex Er) 600 mg BID PO 12/31/17 21:00 01/05/18 09:12 (Lovenox Inj) 40 mg Q24H SQ 12/31/17 20:00 01/01/18 23:04 (Habitrol 21 Mg Patch.24 Hr) 1 patch DAILY T-DERMAL 01/01/18 09:00 01/05/18 09:13 Miscellaneous Information 1 DAILY T-DERMAL 01/01/18 09:00 01/05/18 09:13 (Morphine Inj) 2 mg Q4H PRN IV PUSH 01/01/18 10:00 01/05/18 14:04 ([place] 5-325 Mg) 1 tab Q6H PRN PO 01/01/18 10:15 01/03/18 04:08 ([place] 7.5-325 Mg) 1 tab Q6H PRN PO 01/01/18 10:15 01/05/18 10:38 Ceftriaxone Sodium 2000 mg/ Sodium Chloride 100 ml @ 200 mls/hr Q24H IV 01/01/18 18:00 01/04/18 16:45 (Benadryl) 25 mg Q6H PRN PO 01/01/18 18:30 01/05/18 10:37 (Santyl Oint) 1 applic DAILY TOPICAL 01/03/18 09:45 01/05/18 09:16 A/P Assessment and Plan Bilateral lower extremity wounds/ bacteremia Patient has ulcerative lesions on both lower extremities. There is a large ulceration on the left lower leg that covers most of the ankle. Appreciate vascular surgery, podiatry, and infectious disease recommendations. Blood cultures growing staph aureus and staph epidermidis. Wound culture growing strep and staph aureus. - Continue Santyl ointment with dressing changes. - continue IV antibiotics per ID. - wound physician consult pending. - PT. Bilateral hand wounds Appreciate hand surgery recommendations. - autoimmune work-up in progress. AMIE is positive. Will need outpt follow-up. History of COPD Stable. - Continue bronchodilators, incentive spirometry. Tobacco abuse Counseled to quit smoking. - Continue nicotine patch. DVT prophylaxis: Lovenox Discharge Planning The pt plans on going to a hotel upon discharge Balaji Barakat DO Jan 05, 2018 15:14
[2018-01-05 16:00] VITALS: BP 163/88; PULSE 112; RESP 17; TEMP 98.1; O2SAT 94
[2018-01-05] MEDS: cefTRIAXone INJ 2,000 MG in SODIUM CHLORIDE 0.9% INJ 100 ML IV SCH (16:31)
--- NOTE | 2018-01-05 17:39 | HHI.PR ---
Subjective Remarks hand wound follow up denies any pain or drainage over the fingers complains of pain over the leg region Objective Vital Signs Date Time Temp Pulse Resp B/P (MAP) Pulse Ox O2 Delivery O2 Flow Rate FiO2 01/05/18 16:00 98.1 112 17 163/88 (113) 94 01/05/18 12:00 106 01/05/18 12:00 97.6 105 17 138/92 (107) 92 01/05/18 08:00 79 01/05/18 08:00 96.3 84 17 138/85 (102) 96 01/05/18 05:40 17 01/05/18 05:27 18 01/05/18 04:00 98.9 92 16 137/62 (87) 97 01/05/18 00:00 98.4 102 16 149/82 (104) 95 01/04/18 23:58 105 01/04/18 20:00 98.4 102 16 150/89 (109) 95 01/04/18 19:45 101 I/O 01/04/18 01/04/18 01/04/18 01/05/18 01/05/18 01/05/18 07:00 15:00 23:00 07:00 15:00 23:00 Intake Total 1000 ml 1775 ml 480 ml 1000 ml Output Total 1100 ml Balance 1000 ml 675 ml 480 ml 1000 ml Intake Oral 675 ml 480 ml IV Total 1000 ml 1100 ml 1000 ml Output Urine Total 1100 ml # Voids 2 # Bowel Movements 1 0 bilateral hand: healing scabs over the dorsal aspect of the fingers no active infection noted able to make a full fist full extension of the fingers Result Diagram: 01/05/18 1139 01/05/18 1139 Assessment and Plan Assessment and Plan 42 year old female with bilateral finger wounds progressing well Plan: wounds are healing up no active hand surgery management needed at present time. Paul Marie MD Jan 05, 2018 17:39
[2018-01-05 20:00] VITALS: BP 134/90; PULSE 95; PULSE 96; RESP 20; TEMP 98.8; O2SAT 94
[2018-01-05] MEDS: ENOXAPARIN SODIUM 40 MG/0.4 ML SYRINGE SQ SCH (20:00)
[2018-01-06] VITALS: BP 129/88; PULSE 102; PULSE 109; RESP 22; TEMP 98.7; O2SAT 94
[2018-01-06] MEDS: MORPHINE SULFATE 2 MG/ML INJ IV PUSH PRN ×4 (02:07→19:54)
[2018-01-06 04:03] VITALS: BP 136/94; PULSE 92; RESP 16; TEMP 97.8; O2SAT 95
[2018-01-06 08:00] VITALS: BP 139/85; PULSE 121; RESP 20; TEMP 98.1; O2SAT 96
[2018-01-06] MEDS: guaiFENesin E.R. 600 MG TAB PO SCH ×2 (08:13→19:53)
[2018-01-06] MEDS: diphenhydrAMINE HCL 25 MG CAP PO PRN ×3 (08:13→21:48)
[2018-01-06] MEDS: ACETAMINOPHEN/HYDROcodone 325 MG/7.5 MG TAB PO PRN ×3 (08:13→21:49)
[2018-01-06] MEDS: REMOVE OLD PATCH T-DERMAL SCH (08:14)
[2018-01-06] MEDS: NICOTINE 21 MG/24 HR PATCH T-DERMAL SCH (08:14)
[2018-01-06] MEDS: SODIUM CHLORIDE 0.9% FLUSH 10 ML FLUSH IV FLUSH SCH ×2 (08:30→19:54)
[2018-01-06] MEDS: COLLAGENASE OINT 30 GM TUBE TOPICAL SCH (09:53)
--- NOTE | 2018-01-06 10:46 | PD.WOU.CON ---
Patient Intake Chief Complaint Bilateral lower extremity wounds. Consult Requested by Primary Care Physician No Primary Care Physician Coded Allergies: codeine (Verified Allergy, Severe, 12/31/17) ketorolac (Verified Allergy, Severe, 12/31/17) penicillin G (Verified Allergy, Intermediate, Rash, 12/31/17) Vital Signs Date Time Temp Pulse Resp B/P (MAP) Pulse Ox O2 Delivery O2 Flow Rate FiO2 01/06/18 08:00 98.1 121 20 139/85 (103) 96 01/06/18 04:03 97.8 92 16 136/94 (108) 95 01/06/18 00:00 102 01/06/18 00:00 98.7 109 22 129/88 (102) 94 01/05/18 20:00 96 01/05/18 20:00 98.8 95 20 134/90 (105) 94 01/05/18 16:00 98.1 112 17 163/88 (113) 94 01/05/18 12:00 106 01/05/18 12:00 97.6 105 17 138/92 (107) 92 Lab and Radiology Results Radiology Last Impressions Chest X-Ray 12/31/17 1203 Signed Impressions: Service Date/Time: Sunday, December 31, 2017 12:35 - CONCLUSION: 1. Scattered emphysematous changes bilaterally. 2. No focal infiltrate or pulmonary vascular congestion. Thomas Kennedy MD Tibia/Fibula X-Ray 12/31/17 0000 Signed Impressions: Service Date/Time: Sunday, December 31, 2017 13:43 - CONCLUSION: No osteomyelitis. Ata Friedman MD FACR Alaina Rey MD Jan 06, 2018 10:46
--- NOTE | 2018-01-06 11:51 | HHI.PR ---
Subjective Remarks The patient said that she still had a lot of pain in her left heel, especially with ambulating. She said she talked with the wound care doctor. Discussed with nursing and wound care. Objective Vitals Vital Signs Date Time Temp Pulse Resp B/P (MAP) Pulse Ox O2 Delivery O2 Flow Rate FiO2 01/06/18 08:00 98.1 121 20 139/85 (103) 96 01/06/18 04:03 97.8 92 16 136/94 (108) 95 01/06/18 00:00 102 01/06/18 00:00 98.7 109 22 129/88 (102) 94 01/05/18 20:00 96 01/05/18 20:00 98.8 95 20 134/90 (105) 94 01/05/18 16:00 98.1 112 17 163/88 (113) 94 01/05/18 12:00 106 01/05/18 12:00 97.6 105 17 138/92 (107) 92 I/O 01/05/18 01/05/18 01/05/18 01/06/18 01/06/18 01/06/18 07:00 15:00 23:00 07:00 15:00 23:00 Intake Total 480 ml 1000 ml 2182 ml 720 ml 120 ml Balance 480 ml 1000 ml 2182 ml 720 ml 120 ml Intake Oral 480 ml 1182 ml 720 ml 120 ml IV Total 1000 ml 1000 ml # Voids 2 10 3 # Bowel Movements 0 2 1 Result Diagram: 01/05/18 1139 01/05/18 1139 Imaging Last Impressions Chest X-Ray 12/31/17 1203 Signed Impressions: Service Date/Time: Sunday, December 31, 2017 12:35 - CONCLUSION: 1. Scattered emphysematous changes bilaterally. 2. No focal infiltrate or pulmonary vascular congestion. Thomas Kennedy MD Tibia/Fibula X-Ray 12/31/17 0000 Signed Impressions: Service Date/Time: Sunday, December 31, 2017 13:43 - CONCLUSION: No osteomyelitis. Ata Friedman MD FACR Objective Remarks General: No acute distress. HEENT: NC, AT. Heart: Regular rate and rhythm. No murmur. Lungs: Clear to auscultation bilaterally. No wheezes, rales, or rhonchi. Breathing is nonlabored. Abdomen: Soft, nontender, nondistended. Extremities: No lower extremity edema. Pain in left heel. Neuro: Alert and oriented. Skin: Multiple wounds on both lower extremities. She also has smaller wounds on the fingers of both hands. Psych: Mood and affect appropriate. Procedures None Medications and IVs Current Medications Medications (Trade) Dose Ordered Sig/Malgorzata Route Start Time Stop Time Status Last Admin Sodium Chloride 1,000 ml @ 100 mls/hr Q10H IV 12/31/17 18:00 01/05/18 22:12 (NS Flush) 2 ml UNSCH PRN IV FLUSH 12/31/17 16:45 01/03/18 05:11 (NS Flush) 2 ml BID IV FLUSH 12/31/17 21:00 01/06/18 08:30 (Tylenol) 650 mg Q4H PRN PO 12/31/17 16:45 (Zofran Inj) 4 mg Q6H PRN IVP 12/31/17 16:45 01/02/18 12:06 (Narcan Inj) 0.4 mg UNSCH PRN IV PUSH 12/31/17 16:45 (Senokot) 17.2 mg Q12H PRN PO 12/31/17 16:45 (Dulcolax Supp) 10 mg DAILY PRN RECTAL 12/31/17 16:45 (Lactulose Liq) 30 ml DAILY PRN PO 12/31/17 16:45 (Mucinex Er) 600 mg BID PO 12/31/17 21:00 01/06/18 08:13 (Lovenox Inj) 40 mg Q24H SQ 12/31/17 20:00 01/01/18 23:04 (Habitrol 21 Mg Patch.24 Hr) 1 patch DAILY T-DERMAL 01/01/18 09:00 01/06/18 08:14 Miscellaneous Information 1 DAILY T-DERMAL 01/01/18 09:00 01/06/18 08:14 (Morphine Inj) 2 mg Q4H PRN IV PUSH 01/01/18 10:00 01/06/18 09:29 ([place] 5-325 Mg) 1 tab Q6H PRN PO 01/01/18 10:15 01/03/18 04:08 ([place] 7.5-325 Mg) 1 tab Q6H PRN PO 01/01/18 10:15 01/06/18 08:13 Ceftriaxone Sodium 2000 mg/ Sodium Chloride 100 ml @ 200 mls/hr Q24H IV 01/01/18 18:00 01/05/18 16:31 (Benadryl) 25 mg Q6H PRN PO 01/01/18 18:30 01/06/18 08:13 (Santyl Oint) 1 applic DAILY TOPICAL 01/03/18 09:45 01/06/18 09:53 A/P Assessment and Plan Bilateral lower extremity wounds/ bacteremia Patient has ulcerative lesions on both lower extremities. There is a large ulceration on the left lower leg that covers most of the ankle. Appreciate vascular surgery, podiatry, and infectious disease recommendations. Blood cultures growing staph aureus and staph epidermidis. Wound culture growing strep and staph aureus. Wound care consult appreciated. - Continue Santyl ointment with dressing changes. - continue IV antibiotics per ID. - wound care clinic follow-up. Wounds are healing very well per physician. - PT. Bilateral hand wounds Appreciate hand surgery recommendations. - autoimmune work-up in progress. AMIE is positive. Will need outpt follow-up. History of COPD Stable. - Continue bronchodilators, incentive spirometry. Tobacco abuse Counseled to quit smoking. - Continue nicotine patch. Left heel pain Ongoing. - X ray pending. DVT prophylaxis: Lovenox Discharge Planning The pt plans on going to a hotel upon discharge Balaji Barakat DO Jan 06, 2018 11:51
[2018-01-06 12:00] VITALS: BP 125/83; PULSE 92; RESP 19; TEMP 98.4; O2SAT 95
[2018-01-06] MEDS: SODIUM CHLOR 0.9% 1000 ML INJ 1,000 ML IV SCH (15:10)
[2018-01-06 16:00] VITALS: BP 118/74; PULSE 105; RESP 19; TEMP 98.6; O2SAT 95
--- NOTE | 2018-01-06 17:02 | RADRPT ---
EXAM DATE/TIME: 01/06/2018 14:02 [facility] COMPARISON: No previous studies available for comparison. INDICATIONS : Left foot/heel pain. MEDICAL HISTORY : Cellulitis SURGICAL HISTORY : None. ENCOUNTER: Initial ACUITY: 1 week PAIN SCORE: 9/10 LOCATION: Left foot FINDINGS: Mild cortical irregularity of the talus near the subtalar joint. Osseous structures are otherwise int act. No evidence for erosive change or acute fracture. Mild soft tissue prominence along the plantar aspect of the hindfoot. No radiodense foreign bodies or subcutaneous emphysema. CONCLUSION: 1. Mild cortical irregularity of the talus near the subtalar joint which is likely artifactual. Howev er, a subtle fracture of the lateral process of the talus may have a similar appearance in the approp riate setting of trauma. This does not have the appearance of osteomyelitis. 2. Otherwise, no evidence for acute fracture or bony destruction to suggest osteomyelitis. Lenny Dee MD on January 06, 2018 at 16:57 Board Certified Radiologist. This report was verified electronically.
[2018-01-06] MEDS: cefTRIAXone INJ 2,000 MG in SODIUM CHLORIDE 0.9% INJ 100 ML IV SCH (17:15)
[2018-01-06] MEDS: ENOXAPARIN SODIUM 40 MG/0.4 ML SYRINGE SQ SCH (19:54)
[2018-01-06 20:00] VITALS: BP 134/92; PULSE 94; RESP 16; TEMP 98.7; O2SAT 97
[2018-01-07] VITALS: BP 152/87; PULSE 88; RESP 18; TEMP 98.1; O2SAT 95
[2018-01-07 00:20] VITALS: PULSE 87
[2018-01-07] MEDS: SODIUM CHLOR 0.9% 1000 ML INJ 1,000 ML IV SCH ×2 (00:56→09:39)
[2018-01-07] MEDS: MORPHINE SULFATE 2 MG/ML INJ IV PUSH PRN ×4 (00:57→15:08)
[2018-01-07] MEDS: diphenhydrAMINE HCL 25 MG CAP PO PRN ×3 (03:59→14:41)
[2018-01-07 04:00] VITALS: BP 167/89; PULSE 108; RESP 20; TEMP 99.4; O2SAT 94
[2018-01-07] MEDS: ACETAMINOPHEN/HYDROcodone 325 MG/7.5 MG TAB PO PRN ×3 (04:00→14:41)
[2018-01-07 08:00] VITALS: BP 124/87; PULSE 96; RESP 20; TEMP 98.9; O2SAT 98
[2018-01-07] MEDS: guaiFENesin E.R. 600 MG TAB PO SCH (08:05)
[2018-01-07] MEDS: SODIUM CHLORIDE 0.9% FLUSH 10 ML FLUSH IV FLUSH SCH (08:05)
[2018-01-07] MEDS: NICOTINE 21 MG/24 HR PATCH T-DERMAL SCH (08:05)
[2018-01-07] MEDS: REMOVE OLD PATCH T-DERMAL SCH (08:05)
[2018-01-07] MEDS: COLLAGENASE OINT 30 GM TUBE TOPICAL SCH (08:05)
[2018-01-07 12:00] VITALS: BP_SYST 130; BP_SYST 138; BP_DIAS 83; BP_DIAS 96; PULSE 82; PULSE 92; RESP 16; RESP 18; TEMP 97; TEMP 97.6; O2SAT 93
[2018-01-07] MEDS ORDERED: EPIN1INJ21 IV PUSH (13:51)
[2018-01-07] MEDS ORDERED: EPIN1INJ21 SQ (13:51)
[2018-01-07] MEDS ORDERED: SOLU250I IV PUSH (13:51)
[2018-01-07] MEDS ORDERED: DALB1SOL IV (13:51)
--- NOTE | 2018-01-07 13:54 | HHI.FF ---
Infusion Therapy Location of Infusion Therapy: Ambulatory Infusion Therapy Order Patient Information Appointment Date: Jan 07, 2018 Patient Weight 45 kg Diagnosis: Diagnosis Bilateral LE cellulitis and infected ulcers. Coded Allergies: codeine (Verified Allergy, Severe, 12/31/17) ketorolac (Verified Allergy, Severe, 12/31/17) penicillin G (Verified Allergy, Intermediate, Rash, 12/31/17) Administer Medication Dalvance (Dalbavancin) 1500 mg IV x 1 dose only. 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 [] May leave port accessed during therapy. [] May leave peripheral site accessed for duration of therapy. [x] If patient has SOB or respiratory distress, check oxygen saturation. If less than 90% or clinical signs of respiratory distress, administer oxygen at 2 L/min. via nasal cannula and notify physician. [x] Anaphylaxis/Reaction orders: * Stop infusion. * Keep IV line open with saline flush. * Notify physician. * Monitor vital signs every 15 minutes until symptoms resolve. * Check Oxygen saturation; Oxygen at 2 L/min. via nasal cannula if less than 90% or clinical signs of respiratory distress. * Administer diphenhydramine (Benadryl) 25 mg IV STAT, (unless patient has received as pre-med). May repeat once, if necessary. * Solu-Cortef 250 mg IVP over 30-60 seconds, use 100 mg vials for each dissolution. * Epinephrine (1mg/1 ml) 0.3 mg subcutaneously or IVP now with any signs of respiratory distress. * Check with physician for new additional pre-med orders if patient is re- challenged or re-treated. [x] May remove PICC line when treatment complete, after confirming with Physician. [x] If the patient is admitted to the hospital, the ED, or transferred via [facility] , complete transfer form including medication reconciliation order sheet. Laboratory Tests Additional Information Dose to be administered in infusion clinic at [facility] using a PIV. Ok to leave PIV from hospital in place. Zora Pompa MD Jan 07, 2018 13:54
--- NOTE | 2018-01-07 13:58 | HHI.PR ---
Addendum to Inpatient Note Addendum Reason: Additional Documentation Additional Information dw Hepas, CM Infusion orders in chart and EMAR for Dalvance. Dalvance infusion x 1 dose in infusion clinic at [facility] today. Ok to DC from ID standpoint. Will sign off please call back if any change in clinical condition or questions. Zora Pompa MD Jan 07, 2018 13:58
[2018-01-07] MEDS ORDERED: NICO21DI25 T-DERMAL (14:15)
[2018-01-07] MEDS ORDERED: HYDR-3516 PO (14:15)
[2018-01-07] MEDS ORDERED: DALBAVANCIN INJ 1,500 MG in DEXTROSE 5% IN WATE 500 ML INJ 500 ML IV STA ×2 (15:28)
[2018-01-07] MEDS ORDERED: ASP: Location of Dalbavancin administration OTHER ONE (15:30)
[2018-01-07] MEDS ORDERED: ASP: No known hypersensitivity to Vanco, Telavancin, Dalbavancin OTHER ONE (15:30)
[2018-01-07] MEDS ORDERED: ASP: Does not meet inpatient admission criteria OTHER ONE (15:30)
[2018-01-07] MEDS ORDERED: ASP: Only reason for admit - IV antibiotics OTHER ONE (15:30)
[2018-01-07] MEDS ORDERED: MISCELLANEOUS PHARMACY INFORMATION XX ONE (15:30)
--- NOTE | 2018-01-07 15:46 | HHI.PR ---
Subjective Remarks The patient says that she is unable to afford a hotel during week. She says she will be able to afford one on Wednesday. Discussed with nursing and infectious disease as well as case management. She still can't walk on her left foot. Objective Vitals Vital Signs Date Time Temp Pulse Resp B/P (MAP) Pulse Ox O2 Delivery O2 Flow Rate FiO2 01/07/18 12:00 97.0 92 18 138/96 (110) 93 01/07/18 11:11 18 01/07/18 08:00 98.9 96 20 124/87 (99) 98 01/07/18 04:00 99.4 108 20 167/89 (115) 94 01/07/18 00:20 87 01/07/18 00:00 98.1 88 18 152/87 (108) 95 01/06/18 20:00 98.7 94 16 134/92 (106) 97 01/06/18 16:00 98.6 105 19 118/74 (89) 95 I/O 01/06/18 01/06/18 01/06/18 01/07/18 01/07/18 01/07/18 07:00 15:00 23:00 07:00 15:00 23:00 Intake Total 720 ml 120 ml 480 ml Balance 720 ml 120 ml 480 ml Intake Oral 720 ml 120 ml 480 ml # Voids 3 2 # Bowel Movements 1 2 Result Diagram: 01/05/18 1139 01/05/18 1139 Imaging Last Impressions Foot X-Ray 01/06/18 0000 Signed Impressions: Service Date/Time: December 14:02 - CONCLUSION: 1. Mild cortical irregularity of the talus near the subtalar joint which is likely artifactual. However, a subtle fracture of the lateral process of the talus may have a similar appearance in the appropriate setting of trauma. This does not have the appearance of osteomyelitis. 2. Otherwise, no evidence for acute fracture or bony destruction to suggest osteomyelitis. Lenny Dee MD Chest X-Ray 12/31/17 1203 Signed Impressions: Service Date/Time: Sunday, December 31, 2017 12:35 - CONCLUSION: 1. Scattered emphysematous changes bilaterally. 2. No focal infiltrate or pulmonary vascular congestion. Thomas Kennedy MD Tibia/Fibula X-Ray 12/31/17 0000 Signed Impressions: Service Date/Time: Sunday, December 31, 2017 13:43 - CONCLUSION: No osteomyelitis. Ata Friedman MD FACR Objective Remarks General: No acute distress. HEENT: NC, AT. Heart: Regular rate and rhythm. No murmur. Lungs: Clear to auscultation bilaterally. No wheezes, rales, or rhonchi. Breathing is nonlabored. Abdomen: Soft, nontender, nondistended. Extremities: No lower extremity edema. Pain in left heel. Neuro: Alert and oriented. Skin: Multiple wounds on both lower extremities. She also has smaller wounds on the fingers of both hands. Psych: Mood and affect appropriate. Procedures None Medications and IVs Current Medications Medications (Trade) Dose Ordered Sig/Malgorzata Route Start Time Stop Time Status Last Admin (NS Flush) 2 ml UNSCH PRN IV FLUSH 12/31/17 16:45 01/03/18 05:11 (NS Flush) 2 ml BID IV FLUSH 12/31/17 21:00 01/06/18 19:54 (Tylenol) 650 mg Q4H PRN PO 12/31/17 16:45 (Zofran Inj) 4 mg Q6H PRN IVP 12/31/17 16:45 01/02/18 12:06 (Narcan Inj) 0.4 mg UNSCH PRN IV PUSH 12/31/17 16:45 (Senokot) 17.2 mg Q12H PRN PO 12/31/17 16:45 (Dulcolax Supp) 10 mg DAILY PRN RECTAL 12/31/17 16:45 (Lactulose Liq) 30 ml DAILY PRN PO 12/31/17 16:45 (Mucinex Er) 600 mg BID PO 12/31/17 21:00 01/07/18 08:05 (Lovenox Inj) 40 mg Q24H SQ 12/31/17 20:00 01/01/18 23:04 (Habitrol 21 Mg Patch.24 Hr) 1 patch DAILY T-DERMAL 01/01/18 09:00 01/07/18 08:05 Miscellaneous Information 1 DAILY T-DERMAL 01/01/18 09:00 01/07/18 08:05 ([place] 7.5-325 Mg) 1 tab Q6H PRN PO 01/01/18 10:15 01/07/18 14:41 (Benadryl) 25 mg Q6H PRN PO 01/01/18 18:30 01/07/18 14:41 (Santyl Oint) 1 applic DAILY TOPICAL 01/03/18 09:45 01/07/18 08:05 Dalbavancin 1500 mg/Dextrose 500 ml @ 1,000 mls/hr ONCE STAT IV 01/07/18 15:28 01/07/18 15:57 A/P Assessment and Plan Bilateral lower extremity wounds/ bacteremia Patient has ulcerative lesions on both lower extremities. There is a large ulceration on the left lower leg that covers most of the ankle. Appreciate vascular surgery, podiatry, and infectious disease recommendations. Blood cultures growing staph aureus and staph epidermidis. Wound culture growing strep and staph aureus. Wound care consult appreciated. - Continue Santyl ointment with dressing changes. - continue IV antibiotics per ID. Infusion of Dalvance has been ordered. - wound care clinic follow-up. Wounds are healing very well per physician. - PT. Bilateral hand wounds Appreciate hand surgery recommendations. - autoimmune work-up in progress. AMIE is positive. Will need outpt follow-up. History of COPD Stable. - Continue bronchodilators, incentive spirometry. Tobacco abuse Counseled to quit smoking. - Continue nicotine patch. Left heel pain Pt unable to bear weight. X ray with questionable fracture. - MRI pending. DVT prophylaxis: Lovenox Discharge Planning D/c to [facility] Wednesday Balaji Barakat DO Jan 07, 2018 15:46
[2018-01-07] MEDS ORDERED: GADODIAMIDE PF 287 MG/ML 10 ML VIAL (for RAD MRI) IVCONTRAST ONE (19:15)
[2018-01-07] MEDS: ENOXAPARIN SODIUM 40 MG/0.4 ML SYRINGE SQ SCH (19:17)
--- NOTE | 2018-01-07 20:19 | RADRPT ---
EXAM DATE/TIME: 01/07/2018 18:44 [facility] COMPARISON: TIBIA/FIBULA LEFT (AP/LAT), December 31, 2017, 13:43. INDICATIONS : Osteomyelitis. CONTRAST: 9 cc Omniscan (gadodiamide) IV MEDICAL HISTORY : Carcinoma, ovarian. SURGICAL HISTORY : Hysterectomy. ENCOUNTER: Initial ACUITY: 1 day PAIN SCORE: 5/10 LOCATION: Left foot. TECHNIQUE: Multiplanar, multisequence MRI examination was performed without contrast and after the intravenous a dministration of gadolinium. FINDINGS: There is some ulceration and soft tissue swelling around the heel spurs along the lateral aspect sara a and enhancement of the soft tissues postcontrast characteristic of a cellulitis. There is no signif icant marrow edema or marrow enhancement to suggest osteomyelitis at the calcaneus. There is no ankle joint effusion. The Achilles insertion demonstrates some mild tendinopathy. Plantar fascial insertio n intact. CONCLUSION: 1. Cellulitis at the right heel with some ulceration. No drainable fluid collections. No definite lyubov dence for osteomyelitis. Kevin Wells MD on January 07, 2018 at 20:12 Board Certified Radiologist. This report was verified electronically.
--- NOTE | 2018-01-08 10:28 | HHI.DCPOC ---
Discharge Care Plan Diagnosis: (1) Wounds, multiple open, lower extremity Goals to Promote Your Health * To prevent worsening of your condition and complications * To maintain your health at the optimal level Directions to Meet Your Goals Take your medications as prescribed Follow your dietary instruction Follow activity as directed Keep your appointments as scheduled Take your immunizations and boosters as scheduled If your symptoms worsen call your PCP, if no PCP go to Urgent Care Center or Emergency Room Smoking is Dangerous to Your Health. Avoid second hand smoke Call the 24-hour hour crisis hotline for domestic abuse at Balaji Barakat DO Jan 08, 2018 10:28
--- NOTE | 2018-01-08 10:32 | HHI.DS ---
Discharge Summary Admission Date Dec 31, 2017 at 16:33 Discharge Date: Jan 07, 2018 Admitting Diagnosis (1) Wounds, multiple open, lower extremity ICD Code: S81.809A - Unspecified open wound, unspecified lower leg, initial encounter Diagnosis: Principal Procedures None Brief History - From Admission This is a pleasant 42 y/o Female with History of COPD, Crohn's Disease, who came to ER with bilateral lower extremities ulcers Patient was seen, evaluated, and admitted to the hospital in October 2017 for evaluation of lower extremity cellulitis. Patient states then she did have some wounds but they were healing. She was unable to follow-up with any outpatient providers. She states over the last week the wound that were once scabbed over and black and have began to blister and peel off. They're weeping. She reports subjective fever and chills. She states that she feels weak. She reports severe pain in the lower extremities. 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 CBC/BMP: 01/05/18 1139 01/05/18 1139 Significant Findings Laboratory Tests Test 01/05/18 11:39 White Blood Count 3.4 TH/MM3 (4.0-11.0) Hemoglobin 10.7 GM/DL (11.6-15.3) Hematocrit 32.8 % (35.0-46.0) Mean Corpuscular Volume 78.1 FL (80.0-100.0) Mean Corpuscular Hemoglobin 25.4 PG (27.0-34.0) Blood Urea Nitrogen 4 MG/DL (7-18) Random Glucose 137 MG/DL (74-106) Calcium Level 7.9 MG/DL (8.5-10.1) Imaging Last Impressions Foot MRI 01/07/18 0000 Signed Impressions: Service Date/Time: Sunday, January 07, 2018 18:44 - CONCLUSION: 1. Cellulitis at the right heel with some ulceration. No drainable fluid collections. No definite evidence for osteomyelitis. Kevin Wells MD Foot X-Ray 01/06/18 0000 Signed Impressions: Service Date/Time: December 14:02 - CONCLUSION: 1. Mild cortical irregularity of the talus near the subtalar joint which is likely artifactual. However, a subtle fracture of the lateral process of the talus may have a similar appearance in the appropriate setting of trauma. This does not have the appearance of osteomyelitis. 2. Otherwise, no evidence for acute fracture or bony destruction to suggest osteomyelitis. Lenny Dee MD Chest X-Ray 12/31/17 1203 Signed Impressions: Service Date/Time: Sunday, December 31, 2017 12:35 - CONCLUSION: 1. Scattered emphysematous changes bilaterally. 2. No focal infiltrate or pulmonary vascular congestion. Thomas Kennedy MD Tibia/Fibula X-Ray 12/31/17 0000 Signed Impressions: Service Date/Time: Sunday, December 31, 2017 13:43 - CONCLUSION: No osteomyelitis. Ata Friedman MD FACR PE at Discharge General: No acute distress. HEENT: NC, AT. Heart: Regular rate and rhythm. No murmur. Lungs: Clear to auscultation bilaterally. No wheezes, rales, or rhonchi. Breathing is nonlabored. Abdomen: Soft, nontender, nondistended. Extremities: No lower extremity edema. Pain in left heel. Neuro: Alert and oriented. Skin: Multiple wounds on both lower extremities. She also has smaller wounds on the fingers of both hands. Psych: Mood and affect appropriate. Hospital Course Bilateral lower extremity wounds/ bacteremia Patient has ulcerative lesions on both lower extremities. There is a large ulceration on the left lower leg that covers most of the ankle. Vascular surgery , podiatry, and infectious disease were consulted. Blood cultures growing staph aureus and staph epidermidis. Wound culture growing strep and staph aureus. She was started on IV antibiotics. Wound care was then consulted. She was continued on Santyl ointment with dressing changes. She received an infusion of Dalvance on the day of discharge.She worked with PT. She will need to follow-up at the wound care clinic. Bilateral hand wounds Hand surgery was consulted. She will need to follow up at the wound clinic. Tobacco abuse She was counseled to quit smoking. She received a nicotine patch. Left heel pain Pt unable to bear weight. X ray and MRI without obvious acute process. She received pain medications as needed. Pt Condition on Discharge: Stable Discharge Disposition: Discharge Home Discharge Time: > 30 minutes Discharge Instructions DIET: Follow Instructions for: As Tolerated, No Restrictions Activities you can perform: Weight Bearing as [place] Follow up Referrals: PCP Follow-up - 1 Week Podiatry - 1 Week @ [facility] Steph Galvez DPM Franko will need follow up with podiatry. Expect 4 visits. Wound Care Clinic - 3-5 Days New Medications: Dalbavancin Inj (Dalvance Inj) 500 Mg Vial 1500 MG IV ONCE for Infection, #1 BAG 0 Refills Initial dose of two-dose regimen for CrCl <30 mL/min Epinephrine Inj (Epinephrine Inj) 1 Mg/Ml (1 Ml) Inj 0.3 MG IV PUSH ONCE PRN for ALLERGIC REACTION, #1 VIAL Epinephrine Inj (Epinephrine Inj) 1 Mg/Ml (1 Ml) Inj 0.3 MG SQ ONCE PRN for ALLERGIC REACTION, #1 VIAL Give with any signs of respiratory distress. Hydrocortisone Inj (Solu-Cortef Inj) 250 Mg/2 Ml Inj 250 MG IV PUSH ONCE PRN for ALLERGIC REACTION, #1 VIAL 0 Refills Give over 30-60 seconds. Hydrocodone/Acetaminophen (Hydrocodone-Acetamin 5-325 mg) 5 Mg-325 Mg Tablet 1 TAB PO Q6H PRN for PAIN SCALE 1 TO 10, #20 TAB Nicotine (Eq Nicotine) 21 Mg/24 Hour Dis 1 PATCH T-DERMAL DAILY for SMOKING, #30 PATCH Balaji Barakat DO Jan 08, 2018 10:32
== END 2018-01-07 19:57 | disposition left against medical advice (07) | DRG 593 ==
LOC: NEPE 10:59 → NEDA 16:33 → N07A 19:02
PROVIDERS: ADMIT Hospitalist; ATTEND Hospitalist
DX: L97.319 Non-pressure chronic ulcer of right ankle with unspecified severity (principal); L03.115 Cellulitis of right lower limb; R64 Cachexia; R78.81 Bacteremia; K50.90 Crohn's disease, unspecified, without complications; E87.1 Hypo-osmolality and hyponatremia; D89.1 Cryoglobulinemia; N39.0 Urinary tract infection, site not specified; Z68.1 Body mass index [BMI] 19.9 or less, adult; L03.116 Cellulitis of left lower limb; L97.329 Non-pressure chronic ulcer of left ankle with unspecified severity; L97.822 Non-pressure chronic ulcer of other part of left lower leg with fat layer exposed; J44.9 Chronic obstructive pulmonary disease, unspecified; B19.20 Unspecified viral hepatitis C without hepatic coma; F17.210 Nicotine dependence, cigarettes, uncomplicated; F41.9 Anxiety disorder, unspecified; T36.8X5A Adverse effect of other systemic antibiotics, initial encounter; B95.61 Methicillin susceptible Staphylococcus aureus infection as the cause of diseases classified elsewhere; R00.0 Tachycardia, unspecified; L98.9 Disorder of the skin and subcutaneous tissue, unspecified; Z88.0 Allergy status to penicillin; Z85.41 Personal history of malignant neoplasm of cervix uteri
CPT/HCPCS: 51702; 71045; 73590; 73650; 73720; 76937; 80048; 80053; 80061; 80202; 81001; 83036; 83605; 83735; 84439; 84443; 85025; 85027; 85610; 85652; 86038; 86039; 86140; 86403; 86430; 87040; 87070; 87147; 87186; 87205; 93005; 93306; 96365; 96367; 96375; 96376; A9579; J0696; J0875; J1200; J1650; J2270; J2405; J2930; J3370; J7030; J7050; J7060

== ENCOUNTER 2018-02-20 09:50 | Inpatient (IN) | payer MEDICAID, OTHER ==
[2018-02-20] VITALS (15 sets, daily range): BP systolic 67–179; BP diastolic 47–135; PULSE 119–152; RESP 7–56; TEMP 95.7–98.9; O2SAT 89–100
[~2018-02-20] VITALS: Ht 167.6 cm; Wt 40.1 kg
[~2018-02-20 09:50] MED LIST changes: +DALB1SOL IV; +EPIN1INJ21 IV PUSH; +EPIN1INJ21 SQ; +HYDR-3516 PO; +NICO21DI25 T-DERMAL; +SOLU250I IV PUSH; -Z.0.NO CURRENT MEDS
[2018-02-20] MEDS ORDERED: SODIUM CHLOR 0.9% 1000 ML INJ 1,000 ML IV ONE ×2 (10:10→11:30)
[2018-02-20] MEDS ORDERED: CLINDAMYCIN 900 MG/NS PREMIX 50 ML IV ONE (10:15)
[2018-02-20 10:45] LABS: AUTOMATED NEUTROPHIL # 3.1 TH/MM3 (1.8-7.7); BASOPHIL % 0.8 % (0.0-2.0); EOSINOPHIL % 0.3 % (0.0-4.0); HEMATOCRIT 36.7 % (35.0-46.0); HEMOGLOBIN 12.1 GM/DL (11.6-15.3); LYMPH % 19.7 % (9.0-44.0); LYMPHOCYTE # 0.8 TH/MM3 (1.0-4.8); MEAN CELL VOLUME 73.5 FL (80.0-100.0); MEAN CORPUSCULAR HEMOGLOBIN 24.3 PG (27.0-34.0); MEAN CORPUSCULAR HGB CONC 33.1 % (32.0-36.0); MEAN PLATELET VOLUME 8.4 FL (7.0-11.0); MONOCYTE # 0.2 TH/MM3 (0-0.9); NEUT % 74.2 % (16.0-70.0); PLATELET COUNT 137 TH/MM3 (150-450); RED BLOOD COUNT 4.99 MIL/MM3 (4.00-5.30); RED CELL DISTRIBUTION WIDTH 17.6 % (11.6-17.2); WHITE BLOOD COUNT 4.2 TH/MM3 (4.0-11.0)
[2018-02-20 11:06] LABS: ALBUMIN 2.9 GM/DL (3.4-5.0); AST (GOT) 39 U/L (15-37); BLOOD UREA NITROGEN 11 MG/DL (7-18); CALCIUM 8.5 MG/DL (8.5-10.1); CHLORIDE 96 MEQ/L (98-107); CREATININE 0.58 MG/DL (0.50-1.00); GLOMERULAR FILTRATION RATE 113 ML/MIN (>89); GLUCOSE,RANDOM 128 MG/DL (74-106); SODIUM (NA) 129 MEQ/L (136-145)
[2018-02-20 11:07] LABS: ALT (GPT) 18 U/L (10-53)
[2018-02-20 11:11] LABS: BILIRUBIN, URINE NEG (NEG); BLOOD, URINE SMALL (NEG); GLUCOSE,URINE NEG (NEG); KETONE, URINE NEG (NEG); MUCUS URINE FEW /lpf (OCC); NITRITE,URINE NEG (NEG); PH, URINE 6.5 (5.0-8.5); SQUAMOUS EPITHELIAL CELL URINE <1 /hpf (0-5); URINE COLOR YELLOW (YELLW/STRAW); URINE LEUKOCYTE ESTERASE NEG (NEG)
[2018-02-20] MEDS ORDERED: LORazepam 2 MG/ML VIAL IV PUSH ONE ×3 (11:15→12:45)
[2018-02-20 11:17] LABS: ALKALINE PHOSPHATASE 173 U/L (45-117); TOTAL BILIRUBIN ADULT 0.6 MG/DL (0.2-1.0); TOTAL PROTEIN 7.6 GM/DL (6.4-8.2)
--- NOTE | 2018-02-20 11:33 | RADRPT ---
EXAM DATE/TIME: 02/20/2018 10:57 [facility] COMPARISON: CHEST SINGLE AP, December 31, 2017, 12:35. INDICATIONS : Inflammation from IV drug use. MEDICAL HISTORY : None. SURGICAL HISTORY : None. ENCOUNTER: Initial ACUITY: 1 day PAIN SCORE: 0/10 LOCATION: Bilateral chest FINDINGS: A single view of the chest demonstrates the lungs to be symmetrically aerated without evidence of mas s, infiltrate or effusion. The cardiomediastinal contours are unremarkable. Osseous structures are intact. CONCLUSION: No acute disease. Balaji Zimmerman MD on February 20, 2018 at 11:30 Board Certified Radiologist. This report was verified electronically.
--- NOTE | 2018-02-20 11:34 | RADRPT ---
EXAM DATE/TIME: 02/20/2018 11:00 [facility] COMPARISON: No previous studies available for comparison. INDICATIONS : Inflammation from IV drug use. MEDICAL HISTORY : None. SURGICAL HISTORY : None. ENCOUNTER: Initial ACUITY: 1 day PAIN SCORE: 0/10 LOCATION: Left Foot. FINDINGS: AP, lateral and oblique views of the left foot were obtained and demonstrate soft tissue prominence o tee the dorsum of the foot with no evidence of fracture or malalignment. There is no destructive tompkins ge or cortical pneumonia formation. No gas bubbles or foreign body are identified. There is mild oste openia. CONCLUSION: Soft tissue swelling with no radiopaque foreign body or underlying bony abnormality. Balaji Zimmerman MD on February 20, 2018 at 11:31 Board Certified Radiologist. This report was verified electronically.
--- NOTE | 2018-02-20 11:35 | RADRPT ---
EXAM DATE/TIME: 02/20/2018 11:01 [facility] COMPARISON: TIBIA/FIBULA LEFT (AP/LAT), December 31, 2017, 13:43. INDICATIONS : Inflammation from IV drug use. MEDICAL HISTORY : None. SURGICAL HISTORY : None. ENCOUNTER: Initial ACUITY: 1 day PAIN SCORE: 0/10 LOCATION: Left Tib/Fib. FINDINGS: AP and lateral views left tibia and fibula were obtained and demonstrate soft tissue swelling and irr egularity along the lateral mid and distal leg no radiopaque foreign body. The underlying bony struct ures are intact with no periosteal new bone formation. CONCLUSION: Soft tissue swelling and irregularity with no radiopaque foreign body. Balaji Zimmerman MD on February 20, 2018 at 11:32 Board Certified Radiologist. This report was verified electronically.
--- NOTE | 2018-02-20 11:36 | RADRPT ---
EXAM DATE/TIME: 02/20/2018 11:04 [facility] COMPARISON: TIBIA/FIBULA RIGHT (AP/LAT), December 31, 2017, 13:43. INDICATIONS : Inflammation from IV drug use. MEDICAL HISTORY : None. SURGICAL HISTORY : None. ENCOUNTER: Initial ACUITY: 1 day PAIN SCORE: 0/10 LOCATION: Right Tib/Fib FINDINGS: Two view examination of the right tibia demonstrates no evidence of fracture or dislocation. Bony mi neralization is normal. There is mild soft tissue swelling and irregularity along the lateral mid fib tania. No radiopaque foreign body is identified. CONCLUSION: Soft tissue swelling and irregularity. Balaji Zimmerman MD on February 20, 2018 at 11:33 Board Certified Radiologist. This report was verified electronically.
--- NOTE | 2018-02-20 11:45 | PD ---
HPI Chief Complaint: Pain: Acute or Chronic Time Seen by Provider: 10:02 Travel History International Travel<30 days: No Contact w/Intl Traveler<30days: No Traveled to known affect area: No History of Present Illness HPI 42-year-old female with history of polysubstance abuse, IVDU, brought in by ambulance from a temporary longterm/living facility where she is staying for evaluation of bilateral leg pain and altered mental status. One of the other residents became concerned about the patient today because of the way she was acting. They noticed several sores on her bilateral lower extremities. The patient admits to IV drug abuse, last use was yesterday. She complains of pain in her bilateral legs, however is otherwise a very poor historian writhing in bed moaning in pain. Chart review shows that the patient has been admitted for this in the past. PFSH Past Medical History Asthma: Yes (HAVE BEEN TOLD IN THE PAST TO HAVE ASTHMA ) Anxiety: Yes Cancer: Yes (CERVICAL CANCER ) Cardiovascular Problems: No Diminished Hearing: No Endocrine: No Gastrointestinal Disorders: Yes (crohn's) Genitourinary: No Hepatitis: Yes (hep c) Immune Disorder: No Neurologic: No Reproductive: Yes Respiratory: Yes ?: Unknown Past Surgical History Abdominal Surgery: Yes (EXPLORATORY LAP) Hysterectomy: Yes Social History Alcohol Use: Yes Tobacco Use: Yes (11/23 PPD) Substance Use: Yes (possible iv heroine) Allergies-Medications (Allergen,Severity, Reaction): Coded Allergies: codeine (Verified Allergy, Severe, 02/20/18) ketorolac (Verified Allergy, Severe, 02/20/18) penicillin G (Verified Allergy, Intermediate, Rash, 02/20/18) Reported Meds & Prescriptions Reported Meds & Active Scripts Active Hydrocodone-Acetamin 5-325 mg (Hydrocodone/Acetaminophen) 5 Mg-325 Mg Tablet 1 Tab PO Q6H PRN Eq Nicotine (Nicotine) 21 Mg/24 Hour Dis 1 Patch T-DERMAL DAILY Epinephrine Inj 1 Mg/Ml (1 Ml) Inj 0.3 Mg SQ ONCE PRN Give with any signs of respiratory distress. Epinephrine Inj 1 Mg/Ml (1 Ml) Inj 0.3 Mg IV PUSH ONCE PRN Solu-Cortef Inj (Hydrocortisone Sodium Succinate) 250 Mg/2 Ml Inj 250 Mg IV PUSH ONCE PRN Give over 30-60 seconds. [place] Inj (Dalbavancin) 500 Mg Vial 1,500 Mg IV ONCE Initial dose of two-dose regimen for CrCl <30 mL/min Review of Systems Except as stated in HPI: all other systems reviewed are Neg Physical Exam Narrative GENERAL: Well-developed, cachectic appearing, writhing on the stretcher, moaning in pain. SKIN: Several wounds/ulcerations to bilateral lower extremities with surrounding ecchymosis, no purulent drainage, no crepitus, no fluctuance or induration. HEAD: Atraumatic. Normocephalic. EYES: Pupils equal and round, 3 mm, reactive to light. ENT: Mucous membranes pink and dry. NECK: Trachea midline. No JVD. No nuchal rigidity. CARDIOVASCULAR: Tachycardic, rate 120s, regular. No murmur appreciated. Bilateral dorsalis pedis pulses are brisk and equal. RESPIRATORY: No accessory muscle use. Clear to auscultation. Breath sounds equal bilaterally. GASTROINTESTINAL: Abdomen soft, non-tender, nondistended. MUSCULOSKELETAL: Skin exam as above with moderate edema to left foot and ankle. NEUROLOGICAL: Awake and alert. No obvious cranial nerve deficits. Motor grossly within normal limits. PSYCHIATRIC: Unable to assess. Data Data Last Documented VS Vital Signs Date Time Temp Pulse Resp B/P (MAP) Pulse Ox O2 Delivery O2 Flow Rate FiO2 02/20/18 12:13 98.2 123 26 173/109 (130) 100 Room Air Orders Orders Sepsis Workup Initiated (02/20/18 ) Complete Blood Count With Diff (02/20/18 10:10) Comprehensive Metabolic Panel (02/20/18 10:10) Lactic Acid Sepsis Protocol (02/20/18 10:10) Urinalysis - C+S If Indicated (02/20/18 10:10) Blood Culture (02/20/18 10:10) Chest, Single Ap (02/20/18 10:10) Ecg Monitoring (02/20/18 10:10) Iv Access Insert/Monitor (02/20/18 10:10) Oximetry (02/20/18 10:10) Sodium Chlor 0.9% 1000 Ml Inj (Ns 1000 M (02/20/18 10:10) Tibia/Fibula (Ap/Lat) (02/20/18 ) Tibia/Fibula (Ap/Lat) (02/20/18 ) Foot, Complete ([id number]) (02/20/18 ) Clindamycin 900 Mg/Ns Premix (Cleocin 90 (02/20/18 10:15) Ammonia (02/20/18 10:10) Ct Brain W/O Iv Contrast(Rout) (02/20/18 ) Thyroid Stimulating Hormone (02/20/18 10:10) Drug Screen, Random Urine (02/20/18 10:10) Cath For Specimen (02/20/18 10:18) Insert Temp Sensing Martin Cath (02/20/18 10:44) Urinary Catheter Management REINIER.Q8H (02/20/18 11:03) Lorazepam Inj (Ativan Inj) (02/20/18 11:15) Sodium Chlor 0.9% 1000 Ml Inj (Ns 1000 M (02/20/18 11:30) Lorazepam Inj (Ativan Inj) (02/20/18 11:30) Lorazepam Inj (Ativan Inj) (02/20/18 12:45) Labs Laboratory Tests Test 02/20/18 10:14 02/20/18 10:25 02/20/18 10:50 White Blood Count 4.2 TH/MM3 Red Blood Count 4.99 MIL/MM3 Hemoglobin 12.1 GM/DL Hematocrit 36.7 % Mean Corpuscular Volume 73.5 FL Mean Corpuscular Hemoglobin 24.3 PG Mean Corpuscular Hemoglobin Concent 33.1 % Red Cell Distribution Width 17.6 % Platelet Count 137 TH/MM3 Mean Platelet Volume 8.4 FL Neutrophils (%) (Auto) 74.2 % Lymphocytes (%) (Auto) 19.7 % Monocytes (%) (Auto) 5.0 % Eosinophils (%) (Auto) 0.3 % Basophils (%) (Auto) 0.8 % Neutrophils # (Auto) 3.1 TH/MM3 Lymphocytes # (Auto) 0.8 TH/MM3 Monocytes # (Auto) 0.2 TH/MM3 Eosinophils # (Auto) 0.0 TH/MM3 Basophils # (Auto) 0.0 TH/MM3 CBC Comment DIFF FINAL Differential Comment Blood Urea Nitrogen 11 MG/DL Creatinine 0.58 MG/DL Random Glucose 128 MG/DL Total Protein 7.6 GM/DL Albumin 2.9 GM/DL Calcium Level 8.5 MG/DL Alkaline Phosphatase 173 U/L Aspartate Amino Transf (AST/SGOT) 39 U/L Alanine Aminotransferase (ALT/SGPT) 18 U/L Total Bilirubin 0.6 MG/DL Sodium Level 129 MEQ/L Potassium Level 3.7 MEQ/L Chloride Level 96 MEQ/L Carbon Dioxide Level 25.0 MEQ/L Anion Gap 8 MEQ/L Estimat Glomerular Filtration Rate 113 ML/MIN Thyroid Stimulating Hormone 3rd Gen 1.580 uIU/ML Lactic Acid Level 1.0 mmol/L Ammonia 11 MCMOL/L Urine Color YELLOW Urine Turbidity CLEAR Urine pH 6.5 Urine Specific [place] 1.020 Urine Protein 30 mg/dL Urine Glucose (UA) NEG mg/dL Urine Ketones NEG mg/dL Urine Occult Blood SMALL Urine Nitrite NEG Urine Bilirubin NEG Urine Urobilinogen LESS THAN 2.0 MG/DL Urine Leukocyte Esterase NEG Urine RBC 17 /hpf Urine WBC 1 /hpf Urine Squamous Epithelial Cells <1 /hpf Urine Mucus FEW /lpf Microscopic Urinalysis Comment CATH-CULT NOT IND Urine Opiates Screen POS Urine Barbiturates Screen NEG Urine Amphetamines Screen POS Urine Benzodiazepines Screen POS Urine Cocaine Screen POS Urine Cannabinoids Screen NEG [facility] Medical Decision Making Medical Screen Exam Complete: Yes Emergency Medical Condition: Yes Medical Record Reviewed: Yes Differential Diagnosis Cellulitis, sepsis, metabolic encephalopathy, intracranial abnormality, neuroleptic malignant syndrome, serotonin syndrome, anticholinergic toxicity, polysubstance abuse Narrative Course Initial vital signs show heart rate 122, blood pressure 164/126, pulse ox 97% on room air, rectal temp of 96.7F. CBC: WBC 4.2, hemoglobin 12.1, hematocrit 36.7, platelets 137. CMP is remarkable for sodium 129, chloride 96, otherwise unremarkable. Lactic acid is 1.0. Ammonia is 11. TSH is 1.58. Urine drug screen is positive for opiates, amphetamines, benzodiazepines, cocaine. UA is not suggestive of UTI. Chest x-ray: No acute disease. Bilateral tib-fib x-rays show soft tissue swelling and irregularity with no radiopaque foreign bodies. Left foot x-ray: Soft tissue swelling with no radiopaque foreign body or underlying bony abnormality. CT head was limited by streak and motion artifact with no evidence of hemorrhage or mass-effect. Patient was provided 2 L normal saline IV and several doses of IV abdomen and continues to remain agitated and tachycardic with a heart rate in the 120s, sinus. Patient is also very altered, however there is no nuchal rigidity on exam and she does answer some questions appropriately. Case discussed with automat car attendant Dr. salgado who will admit the patient to his service to the ICU Diagnosis Primary Impression: Altered mental status Qualified Codes: R41.82 - Altered mental status, unspecified Additional Impressions: Polysubstance abuse Bilateral leg ulcer Qualified Codes: L97.919 - Non-pressure chronic ulcer of unspecified part of right lower leg with unspecified severity; L97.929 - Non-pressure chronic ulcer of unspecified part of left lower leg with unspecified severity Admitting Information Admitting Physician Requests: Admit Landon Harmon MD Feb 20, 2018 11:45
--- NOTE | 2018-02-20 12:41 | RADRPT ---
EXAM DATE/TIME: 02/20/2018 11:49 [facility] COMPARISON: No previous studies available for comparison. INDICATIONS : Altered mental status. RADIATION DOSE: 67.23 CTDIvol (mGy) ; Patient motion MEDICAL HISTORY : Hepatitis C. cervical cancer SURGICAL HISTORY : Hysterectomy. ENCOUNTER: Initial ACUITY: 1 day PAIN SCALE: Non-responsive LOCATION: Bilateral head TECHNIQUE: Multiple contiguous axial images were obtained of the head. Using automated exposure control and adj ustment of the mA and/or kV according to patient size, radiation dose was kept as low as reasonably a chievable to obtain optimal diagnostic quality images. DICOM format image data is available electro nically for review and comparison. FINDINGS: There is motion and streak artifact limiting the sensitivity of the exam. CEREBRUM: The ventricles are normal for age. No evidence of midline shift, mass lesion, hemorrhage or acute in farction. No extra-axial fluid collections are seen. POSTERIOR FOSSA: The cerebellum and brainstem are intact. The 4th ventricle is midline. The cerebellopontine angle i s unremarkable. EXTRACRANIAL: The visualized portion of the orbits is intact. SKULL: The calvaria is intact. No evidence of skull fracture. CONCLUSION: Suboptimal exam secondary to streak and motion artifact with no evidence of hemorrhag e or mass effect. Balaji Zimmerman MD on February 20, 2018 at 12:37 Board Certified Radiologist. This report was verified electronically.
[2018-02-20] MEDS ORDERED: CHLORHEXIDINE GLUCONATE 2 % 1 PACK (2 CLOTHS) TOP PRN (15:00)
[2018-02-20] MEDS ORDERED: POTASSIUM PHOSPHATE INJ 30 MMOL in SODIUM CHLOR 0.9% 250 ML INJ 250 ML IV PRN (15:00)
[2018-02-20] MEDS ORDERED: MISCELLANEOUS NURSING INFORMATION XX SCH (15:00)
[2018-02-20] MEDS ORDERED: SODIUM PHOSPHATE INJ 30 MMOL in SODIUM CHLOR 0.9% 250 ML INJ 240 ML IV PRN (15:00)
[2018-02-20] MEDS ORDERED: SODIUM CHLORIDE 0.9% FLUSH 10 ML FLUSH IV FLUSH PRN (15:00)
[2018-02-20] MEDS ORDERED: LACTULOSE SYRUP 20 GM/30 ML CUP PO PRN (15:00)
[2018-02-20] MEDS ORDERED: RESP: ALBUTEROL 2.5 MG/IPRATROPIUM 0.5 MG NEB (PRN) INH (15:00)
[2018-02-20] MEDS ORDERED: POTASSIUM CHLORIDE 25 MEQ EFFERVESCENT TAB PO PRN (15:00)
[2018-02-20] MEDS ORDERED: SENNOSIDES 8.6 MG TAB PO PRN (15:00)
[2018-02-20] MEDS ORDERED: POTASSIUM CHLOR 40 MEQ PREMIX 100 ML IV PRN ×2 (15:00)
[2018-02-20] MEDS ORDERED: MAGNESIUM HYDROXIDE SUSP 30 ML CUP PO PRN (15:00)
[2018-02-20] MEDS ORDERED: BISACODYL 10 MG SUPP RECTAL PRN (15:00)
[2018-02-20] MEDS ORDERED: POTASSIUM PHOSPHATE MONOBASIC 500 MG TAB PO PRN (15:00)
[2018-02-20] MEDS ORDERED: ONDANSETRON HCL 4 MG/2 ML VIAL IV PUSH PRN (15:00)
[2018-02-20] MEDS ORDERED: MAGNESIUM OXIDE 400 MG TAB PO PRN (15:00)
[2018-02-20] MEDS ORDERED: MAGNESIUM SULFATE INJ 4 GM in SODIUM CHLORIDE 0.9% INJ 92 ML IV PRN (15:00)
[2018-02-20] MEDS ORDERED: POTASSIUM PHOSPHATE MONOBASIC 500 MG TAB PO/TUBE PRN (15:00)
[2018-02-20 15:51] LABS: PHOSPHORUS 2.9 MG/DL (2.5-4.9)
[2018-02-20] MEDS: NS + KCL 20 MEQ INJ 1,000 ML IV SCH ×2 (16:29→20:40)
[2018-02-20] MEDS: LORazepam 2 MG/ML VIAL IV PUSH PRN (16:30)
[2018-02-20] MEDS: HEPARIN SODIUM - SQ 10,000 UNITS/ML VIAL SQ SCH (16:33)
[2018-02-20] MEDS ORDERED: LABETALOL HCL 100 MG/20 ML VIAL IV PUSH STA (16:43)
[2018-02-20] MEDS: METOPROLOL TARTRATE 5 MG/5 ML VIAL IV PUSH PRN (17:03)
--- NOTE | 2018-02-20 17:09 | HHI.HP ---
HPI Service Critical Care Medicine Primary Care Physician Unknown Admission Diagnosis Altered mental status, polysubstance abuse, bilateral leg wounds Diagnosis: Travel History International Travel<30 Days: No Contact w/Intl Traveler <30 Da: No Traveled to Known Affected Are: No History of Present Illness History of Present Illness HPI 42-year-old female with history of polysubstance abuse, IVDU, brought in by ambulance from a temporary longterm/living facility where she is staying for evaluation of bilateral leg pain and altered mental status. One of the other residents became concerned about the patient today because of the way she was acting. They noticed several sores on her bilateral lower extremities. The patient admits to IV drug abuse, last use was yesterday. She complains of pain in her bilateral legs, however is otherwise a very poor historian writhing in bed moaning in pain. Chart review shows that the patient has been admitted for this in the past. History PFSH Past Medical History Asthma: Yes (HAVE BEEN TOLD IN THE PAST TO HAVE ASTHMA ) Anxiety: Yes Cancer: Yes (CERVICAL CANCER ) Cardiovascular Problems: No Diminished Hearing: No Endocrine: No Gastrointestinal Disorders: Yes (crohn's) Genitourinary: No Hepatitis: Yes (hep c) Immune Disorder: No Neurologic: No Reproductive: Yes Respiratory: Yes ?: Unknown Past Surgical History Abdominal Surgery: Yes (EXPLORATORY LAP) Hysterectomy: Yes Social History Alcohol Use: Yes Tobacco Use: Yes (2 PPD) Substance Use: Yes (possible iv heroine) Allergies-Medications Allergies-Medications (Allergen,Severity, Reaction): Coded Allergies: codeine (Verified Allergy, Severe, 02/20/18) ketorolac (Verified Allergy, Severe, 02/20/18) penicillin G (Verified Allergy, Intermediate, Rash, 02/20/18) Reported Meds & Prescriptions Reported Meds & Active Scripts Active Need to be clarified ROS Review of Systems Except as stated in HPI: Difficult to be obtained as patient encephalopathic at the time of my evaluation. Physical Exam Vital Signs Vital Signs Date Time Temp Pulse Resp B/P (MAP) Pulse Ox O2 Delivery O2 Flow Rate FiO2 02/20/18 16:43 152 22 150/116 (127) 99 Room Air 02/20/18 15:30 135 20 171/135 (147) 99 Nasal Cannula 02/20/18 13:19 98.6 127 27 179/127 (144) 99 Room Air 02/20/18 12:13 98.2 123 26 173/109 (130) 100 Room Air 02/20/18 11:17 97.7 121 28 176/129 (145) 100 Room Air 02/20/18 10:48 95.7 119 18 168/118 (135) 99 Room Air 02/20/18 10:29 97 Room Air 02/20/18 10:27 122 28 02/20/18 10:27 96.7 122 33 164/126 (139) 97 Room Air Physical Exam Narrative GENERAL: Well-developed, cachectic appearing, writhing on the stretcher, moaning in pain. SKIN: Several wounds/ulcerations to bilateral lower extremities with surrounding ecchymosis, no purulent drainage, no crepitus, no fluctuance or induration. HEAD: Atraumatic. Normocephalic. EYES: Pupils equal and round, 3 mm, reactive to light. ENT: Mucous membranes pink and dry. NECK: Trachea midline. No JVD. No nuchal rigidity. CARDIOVASCULAR: Tachycardic, rate 130s, regular. No murmur appreciated. Bilateral dorsalis pedis pulses are brisk and equal. RESPIRATORY: No accessory muscle use. Clear to auscultation. Breath sounds equal bilaterally. GASTROINTESTINAL: Abdomen soft, non-tender, nondistended. MUSCULOSKELETAL: Skin exam as above with moderate edema to left foot and ankle. NEUROLOGICAL: Drowsy, arousable, encephalopathic, pupils 3 mm bilaterally reactive, not following commands. No obvious cranial nerve deficits. Motor grossly within normal limits. PSYCHIATRIC: Unable to assess. Laboratory Laboratory Tests Test 02/20/18 10:14 02/20/18 10:25 02/20/18 10:50 White Blood Count 4.2 Red Blood Count 4.99 Hemoglobin 12.1 Hematocrit 36.7 Mean Corpuscular Volume 73.5 Mean Corpuscular Hemoglobin 24.3 Mean Corpuscular Hemoglobin Concent 33.1 Red Cell Distribution Width 17.6 Platelet Count 137 Mean Platelet Volume 8.4 Neutrophils (%) (Auto) 74.2 Lymphocytes (%) (Auto) 19.7 Monocytes (%) (Auto) 5.0 Eosinophils (%) (Auto) 0.3 Basophils (%) (Auto) 0.8 Neutrophils # (Auto) 3.1 Lymphocytes # (Auto) 0.8 Monocytes # (Auto) 0.2 Eosinophils # (Auto) 0.0 Basophils # (Auto) 0.0 CBC Comment DIFF FINAL Differential Comment Blood Urea Nitrogen 11 Creatinine 0.58 Random Glucose 128 Total Protein 7.6 Albumin 2.9 Calcium Level 8.5 Phosphorus Level 2.9 Alkaline Phosphatase 173 Aspartate Amino Transf (AST/SGOT) 39 Alanine Aminotransferase (ALT/SGPT) 18 Total Bilirubin 0.6 Sodium Level 129 Potassium Level 3.7 Chloride Level 96 Carbon Dioxide Level 25.0 Anion Gap 8 Estimat Glomerular Filtration Rate 113 Thyroid Stimulating Hormone 3rd Gen 1.580 Lactic Acid Level 1.0 Ammonia 11 Urine Color YELLOW Urine Turbidity CLEAR Urine pH 6.5 Urine Specific [place] 1.020 Urine Protein 30 Urine Glucose (UA) NEG Urine Ketones NEG Urine Occult Blood SMALL Urine Nitrite NEG Urine Bilirubin NEG Urine Urobilinogen LESS THAN 2.0 Urine Leukocyte Esterase NEG Urine RBC 17 Urine WBC 1 Urine Squamous Epithelial Cells <1 Urine Mucus FEW Microscopic Urinalysis Comment CATH-CULT NOT IND Urine Opiates Screen POS Urine Barbiturates Screen NEG Urine Amphetamines Screen POS Urine Benzodiazepines Screen POS Urine Cocaine Screen POS Urine Cannabinoids Screen NEG Date/Time Source Procedure Growth Status 02/20/18 10:25 Blood Peripheral Aerobic Blood Culture Pending Received 02/20/18 10:25 Blood Peripheral Anaerobic Blood Culture Pending Received Result Diagram: 02/20/18 1014 02/20/18 1014 Imaging Last Impressions Chest X-Ray 02/20/18 1010 Signed Impressions: Service Date/Time: Tuesday, February 20, 2018 10:57 - CONCLUSION: No acute disease. Balaji Zimmerman MD Tibia/Fibula X-Ray 02/20/18 0000 Signed Impressions: Service Date/Time: Tuesday, February 20, 2018 11:01 - CONCLUSION: Soft tissue swelling and irregularity with no radiopaque foreign body. Balaji Zimmerman MD Head CT 02/20/18 0000 Signed Impressions: Service Date/Time: Tuesday, February 20, 2018 11:49 - CONCLUSION: Suboptimal exam secondary to streak and motion artifact with no evidence of hemorrhage or mass effect. Balaji Zimmerman MD Foot X-Ray 02/20/18 0000 Signed Impressions: Service Date/Time: Tuesday, February 20, 2018 11:00 - CONCLUSION: Soft tissue swelling with no radiopaque foreign body or underlying bony abnormality. MD Hernán Concepcion VTE Risk Assessment Caprini VTE Risk Assessment: Mod/High Risk (score >= 2) Caprini Risk Assessment Model Point Value = 1 Point Value = 2 Point Value = 3 Point Value = 5 Age 41-60 Minor surgery BMI > 25 kg/m2 Swollen legs Varicose veins or History of unexplained or recurrent spontaneous Oral contraceptives or hormone replacement Sepsis (< 1 month) Serious lung disease, including pneumonia (< 1 month) Abnormal pulmonary function Acute myocardial infarction Congestive heart failure (< 1 month) History of inflammatory bowel disease Medical patient at bed rest Age 61-74 Arthroscopic surgery Major open surgery (> 45 min) Laparoscopic surgery (> 45 min) Malignancy Confined to bed (> 72 hours) Immobilizing plaster cast Central venous access Age >= 75 History of VTE Family history of VTE Factor V Leiden Prothrombin [id number] Lupus anticoagulant Anticardiolipin antibodies Elevated serum homocysteine Heparin-induced thrombocytopenia Other congenital or acquired thrombophilia Stroke (< 1 month) Elective arthroplasty Hip, pelvis, or leg fracture Acute spinal cord injury (< 1 month) Prophylaxis Regimen Total Risk Factor Score Risk Level Prophylaxis Regimen 0-1 Low Early ambulation 2 Moderate Order ONE of the following: *Sequential Compression Device (SCD) *Heparin 5000 units SQ BID 3-4 Higher Order ONE of the following medications: *Heparin 5000 units SQ TID *Enoxaparin/Lovenox 40 mg SQ daily (WT < 150 kg, CrCl > 30 mL/min) *Enoxaparin/Lovenox 30 mg SQ daily (WT < 150 kg, CrCl > 10-29 mL/min) *Enoxaparin/Lovenox 30 mg SQ BID (WT < 150 kg, CrCl > 30 mL/min) AND/OR *Sequential Compression Device (SCD) 5 or more Highest Order ONE of the following medications: *Heparin 5000 units SQ TID (Preferred with Epidurals) *Enoxaparin/Lovenox 40 mg SQ daily (WT < 150 kg, CrCl > 30 mL/min) *Enoxaparin/Lovenox 30 mg SQ daily (WT < 150 kg, CrCl > 10-29 mL/min) *Enoxaparin/Lovenox 30 mg SQ BID (WT < 150 kg, CrCl > 30 mL/min) AND *Sequential Compression Device (SCD) Assessment and Plan Assessment and Plan 42-year-old female with: Encephalopathy secondary to substance abuse Hyponatremia Positive for amphetamines, cocaine, benzodiazepine, opioids Multiple leg ulcers/wounds which appeared chronic History of IV drug use Sinus Tachycardia Uncontrolled hypertension Plan: Neuro: Ativan when necessary for agitation. Will use Precedex if needed to control agitation/withdrawal symptoms. Follow neuro status. If neuro status not improved in a.m. Will obtain EEG. Cardiovascular: IV hydration. Received 2 L normal saline earlier. Watch for hypotension. Lopressor 2.5 mg IV every 6 hourly for tachycardia with labetalol 10 mg IV every 4 hourly when necessary for hypertension. Pulmonary: Supplemental O2 as needed. Bronchodilators when necessary GI/liver: Nothing by mouth till improvement of neurologic status. Renal/: IV hydration, strict intake output, monitor and replete elect lites, follow BUN/creatinine. Continue normal saline for hyponatremia. Endocrine: Watch for hyperglycemia, SSI for glycemic control if needed. Heme: Follow CBC Prophylaxis: Subcutaneous heparin, SCDs for DVT prophylaxis. If neuro status declines may require endotracheal intubation for airway protection. Time spent on critical care excluding procedures 45 minutes We'll continue to follow for critical care. Orlando Pompa MD Feb 20, 2018 17:09
[2018-02-20] MEDS ORDERED: ETOMIDATE 40 MG/20 ML VIAL ONE (19:08)
[2018-02-20] MEDS ORDERED: MIDAZOLAM HCL 5 MG/ML VIAL (1 ML) ONE (19:21)
[2018-02-20] MEDS: MIDAZOLAM 100 MG/100 ML INJ 100 ML IV PRN (19:54)
[2018-02-20] MEDS: fentaNYL DRIP 250 ML IV PRN (19:54)
[2018-02-20] MEDS: CHLORHEXIDINE 0.12% (ORAL KIT) 15 ML CUP MT SCH (20:00)
[2018-02-20] MEDS ORDERED: PROPOFOL 500 MG/50 ML INJ 50 ML ONE (20:48)
[2018-02-20] MEDS: PROPOFOL 1000 MG/100 ML INJ 100 ML IV PRN (20:54)
--- NOTE | 2018-02-20 20:56 | RADRPT ---
EXAM DATE/TIME: 02/20/2018 20:30 [facility] COMPARISON: CHEST SINGLE AP, February 20, 2018, 10:57. INDICATIONS : E-T and central line placements. MEDICAL HISTORY : Cirrhosis. Hepatitis C. Cervical ca, IV drug use SURGICAL HISTORY : Hysterectomy. ENCOUNTER: Subsequent ACUITY: 1 day PAIN SCORE: Non-responsive. LOCATION: Bilateral chest FINDINGS: Right jugular line tip overlies the SVC. Endotracheal tube tip at the inferior margin of the clavicle s. Hyperinflation. EKG leads and oxygen tubing overlie the chest. Lungs are clear. CONCLUSION: ET tube and jugular line as above. Juan Walker MD on February 20, 2018 at 20:54 Board Certified Radiologist. This report was verified electronically.
[2018-02-20] MEDS: SODIUM CHLORIDE 0.9% FLUSH 10 ML FLUSH IV FLUSH SCH (21:00)
[2018-02-21] VITALS (25 sets, daily range): BP systolic 91–137; BP diastolic 66–104; PULSE 119–138; RESP 0–29; TEMP 98.1–101.5; O2SAT 93–100
[2018-02-21] MEDS: PROPOFOL 1000 MG/100 ML INJ 100 ML IV PRN ×4 (02:10→21:14)
[2018-02-21] MEDS: NS + KCL 20 MEQ INJ 1,000 ML IV SCH ×3 (02:10→22:44)
[2018-02-21] MEDS: HEPARIN SODIUM - SQ 10,000 UNITS/ML VIAL SQ SCH ×2 (04:00→16:49)
[2018-02-21] MEDS: CHLORHEXIDINE GLUCONATE 2 % 1 PACK (2 CLOTHS) TOP SCH (04:00)
[2018-02-21 05:01] LABS: AUTOMATED NEUTROPHIL # 2.7 TH/MM3 (1.8-7.7); BASOPHIL % 0.7 % (0.0-2.0); EOSINOPHIL % 0.2 % (0.0-4.0); HEMATOCRIT 33.5 % (35.0-46.0); LYMPH % 34.2 % (9.0-44.0); LYMPHOCYTE # 1.8 TH/MM3 (1.0-4.8); MEAN CELL VOLUME 73.8 FL (80.0-100.0); MEAN CORPUSCULAR HEMOGLOBIN 24.2 PG (27.0-34.0); MEAN CORPUSCULAR HGB CONC 32.7 % (32.0-36.0); MEAN PLATELET VOLUME 8.2 FL (7.0-11.0); MONO % 13.5 % (0.0-8.0); MONOCYTE # 0.7 TH/MM3 (0-0.9); NEUT % 51.4 % (16.0-70.0); PLATELET COUNT 168 TH/MM3 (150-450); RED BLOOD COUNT 4.53 MIL/MM3 (4.00-5.30); RED CELL DISTRIBUTION WIDTH 17.8 % (11.6-17.2); WHITE BLOOD COUNT 5.3 TH/MM3 (4.0-11.0)
[2018-02-21] MEDS: MIDAZOLAM 100 MG/100 ML INJ 100 ML IV PRN (05:15)
[2018-02-21 05:38] LABS: ALT (GPT) 17 U/L (10-53); AST (GOT) 46 U/L (15-37); BICARBONATE 22.5 MEQ/L (21.0-32.0); BLOOD UREA NITROGEN 12 MG/DL (7-18); CALCIUM 7.9 MG/DL (8.5-10.1); CHLORIDE 103 MEQ/L (98-107); CREATININE 0.49 MG/DL (0.50-1.00); GLOMERULAR FILTRATION RATE 137 ML/MIN (>89); GLUCOSE,RANDOM 91 MG/DL (74-106); MAGNESIUM 1.7 MG/DL (1.5-2.5); SODIUM (NA) 135 MEQ/L (136-145)
[2018-02-21 05:39] LABS: ALKALINE PHOSPHATASE 121 U/L (45-117); TOTAL BILIRUBIN ADULT 0.4 MG/DL (0.2-1.0); TOTAL PROTEIN 5.9 GM/DL (6.4-8.2)
[2018-02-21] MEDS: fentaNYL DRIP 250 ML IV PRN (05:41)
[2018-02-21] MEDS: SODIUM CHLORIDE 0.9% FLUSH 10 ML FLUSH IV FLUSH SCH ×2 (09:03→21:13)
[2018-02-21] MEDS: DOCUSATE SODIUM 50 MG/SENNA 8.6 MG TAB PO SCH ×2 (09:03→21:00)
[2018-02-21] MEDS: CHLORHEXIDINE 0.12% (ORAL KIT) 15 ML CUP MT SCH ×2 (09:04→21:13)
[2018-02-21] MEDS ORDERED: ACETAMINOPHEN 1000 MG/100 ML 100 ML IV PRN (13:00)
--- NOTE | 2018-02-21 13:05 | HHI.CCPN ---
Subjective Remarks/Hospital Course 02/20: 42-year-old female with history of polysubstance abuse, IVDU, brought in by ambulance from a temporary long-term/living facility where she is staying for evaluation of bilateral leg pain and altered mental status. One of the other residents became concerned about the patient today because of the way she was acting. They noticed several sores on her bilateral lower extremities. The patient admits to IV drug abuse, last use was yesterday. She complains of pain in her bilateral legs, however is otherwise a very poor historian writhing in bed moaning in pain. Chart review shows that the patient has been admitted for this in the past. 02/21: Sedated, easily arousable, orally intubated on mechanical ventilation. Spiked a temperature 101.5 for which Arellano cultures ordered and we are initiating empiric vancomycin and Levaquin. 2-D echo ordered to evaluate heart valves. She had a normal white count this morning. Wounds or bilateral lower extremities unchanged since admission and appeared to be chronic. Objective Vital Signs Date Time Temp Pulse Resp B/P (MAP) Pulse Ox O2 Delivery O2 Flow Rate FiO2 02/21/18 11:30 100 30 02/21/18 08:00 100.7 123 107/83 (91) 02/21/18 05:00 22 02/20/18 16:43 Room Air Intake and Output 02/21/18 02/21/18 02/22/18 08:00 16:00 00:00 Intake Total 1350 ml Output Total 800 ml Balance 550 ml Result Diagram: 02/21/18 0450 02/21/18 0450 Other Results Laboratory Tests Test 02/20/18 20:28 Blood Gas Puncture Site RT BRACHIAL Blood Gas Patient Temperature 98.6 Blood Gas HCO3 20 mmol/L (22-26) Blood Gas Base Excess -3.5 mmol/L (-2-2) Blood Gas Oxygen Saturation 97 % (90-100) Arterial Blood pH 7.45 (7.380-7.420) Arterial Blood Partial Pressure CO2 29 mmHg (38-42) Arterial Blood Partial Pressure O2 193 mmHg (61-120) Arterial Blood Oxygen Content 16.3 Vol % (12.0-20.0) Arterial Blood Carboxyhemoglobin 1.3 % (0-4) Arterial Blood Methemoglobin 1.2 % (0-2) Blood Gas Hemoglobin 11.7 G/DL (12.0-16.0) Oxygen Delivery Device VENTILATOR Blood Gas Ventilator Setting PRVC/AC 14/450/ Blood Gas Inspired Oxygen 40 % Imaging Last Impressions Chest X-Ray 02/20/18 1010 Signed Impressions: Service Date/Time: Tuesday, February 20, 2018 10:57 - CONCLUSION: No acute disease. Balaij Zimmerman MD Tibia/Fibula X-Ray 02/20/18 0000 Signed Impressions: Service Date/Time: Tuesday, February 20, 2018 11:01 - CONCLUSION: Soft tissue swelling and irregularity with no radiopaque foreign body. Balaji Zimmerman MD Head CT 02/20/18 0000 Signed Impressions: Service Date/Time: Tuesday, February 20, 2018 11:49 - CONCLUSION: Suboptimal exam secondary to streak and motion artifact with no evidence of hemorrhage or mass effect. Balaji Zimmerman MD Foot X-Ray 02/20/18 0000 Signed Impressions: Service Date/Time: Tuesday, February 20, 2018 11:00 - CONCLUSION: Soft tissue swelling with no radiopaque foreign body or underlying bony abnormality. Balaji Zimmerman MD Objective Remarks Narrative GENERAL: Well-developed, cachectic appearing, orally intubated on mechanical ventilation, laying in bed. SKIN: Several wounds/ulcerations to bilateral lower extremities with surrounding ecchymosis, no purulent drainage, no crepitus, no fluctuance or induration. HEAD: Atraumatic. Normocephalic. EYES: Pupils equal and round, 3 mm, reactive to light. ENT: Mucous membranes pink and dry. NECK: Trachea midline. No JVD. No nuchal rigidity. CARDIOVASCULAR: S1-S2 regular, no gallop or murmur. No murmur appreciated. Bilateral dorsalis pedis pulses are brisk and equal. RESPIRATORY: Orally intubated on mechanical ventilation. Clear to auscultation. Breath sounds equal bilaterally. GASTROINTESTINAL: Abdomen soft, non-tender, nondistended. MUSCULOSKELETAL: Skin exam as above with moderate edema to left foot and ankle. NEUROLOGICAL: Sedated, arousable, orally intubated on mechanical ventilation, pupils 3 mm bilaterally reactive, follows commands on lightening sedation. No obvious cranial nerve deficits. Motor grossly within normal limits. PSYCHIATRIC: Unable to assess. A/P Assessment and Plan 42-year-old female with: Encephalopathy secondary to substance abuse Hyponatremia Positive for amphetamines, cocaine, benzodiazepine, opioids Acute respiratory failure on mechanical ventilation Fever with suspected sepsis Multiple leg ulcers/wounds which appeared chronic History of IV drug use Sinus Tachycardia Uncontrolled hypertension Plan: Neuro: Sedation with propofol/fentanyl gtt. Daily sedation vacation. Ativan when necessary for agitation. Will use Precedex if needed to control agitation/ withdrawal symptoms. Follow neuro status. Cardiovascular: IV hydration. Received 2 L normal saline earlier. Watch for hypotension. Lopressor 2.5 mg IV every 6 hourly for tachycardia with labetalol 10 mg IV every 4 hourly when necessary for hypertension. Pulmonary: Supplemental O2 as needed. Bronchodilators when necessary GI/liver: If not extubated we'll initiate tube feeds. Renal/: IV hydration, strict intake output, monitor and replete elect lites, follow BUN/creatinine. Continue normal saline for hyponatremia. ID: Patient had a normal white count however spiked fever 4/2. She has chronic leg wounds. Repeat chest x-ray and arellano culture and initiate empiric antibiotics with IV vancomycin and Levaquin. 2-D echo will be obtained to evaluate heart valves. Check pro calcitonin. Wound care consulted for lower extremity leg wounds. Endocrine: Watch for hyperglycemia, SSI for glycemic control if needed. Heme: Follow CBC Prophylaxis: Subcutaneous heparin, SCDs for DVT prophylaxis. Time spent on critical care excluding procedures 35 minutes Orlando Pompa MD Feb 21, 2018 13:05
[2018-02-21] MEDS: LEVOFLOXACIN 500 MG PREMIX INJ 100 ML IV SCH (13:38)
[2018-02-21 13:57] LABS: BILIRUBIN, URINE NEG (NEG); BLOOD, URINE SMALL (NEG); GLUCOSE,URINE NEG (NEG); KETONE, URINE 40 mg/dL (NEG); MUCUS URINE FEW /lpf (OCC); NITRITE,URINE NEG (NEG); URINE COLOR YELLOW (YELLW/STRAW); URINE LEUKOCYTE ESTERASE NEG (NEG)
[2018-02-21] MEDS: VANCOMYCIN INJ 550 MG in SODIUM CHLOR 0.9% 250 ML INJ 250 ML IV SCH (14:38)
--- NOTE | 2018-02-21 14:50 | RADRPT ---
EXAM DATE/TIME: 02/21/2018 14:09 [facility] COMPARISON: CHEST SINGLE AP, February 20, 2018, 20:30. INDICATIONS : Shortness of breath. MEDICAL HISTORY : Cirrhosis. Hepatitis C. Cervical ca, IV drug use SURGICAL HISTORY : Hysterectomy. ENCOUNTER: Subsequent ACUITY: 2 days PAIN SCORE: Non-responsive. LOCATION: Bilateral chest FINDINGS: The heart is normal size. ET tube and central line are in good position. There are COPD changes. The osseous structures are intact. CONCLUSION: 1. COPD changes. Clayton Friedman MD on February 21, 2018 at 14:46 Board Certified Radiologist. This report was verified electronically.
--- NOTE | 2018-02-21 15:41 | PD.WCN.NOT ---
Wound Consult Description: Wound consult ordered by Dr.N.Nemani POOLE Communicated with: Violeta COBB, Recommendation: 1. Please consult podiatry or vascular surgeon. 2. Skin prep bilateral lower extremities BID Additional Information: Patient was seen today by comic book writer on [facility].Patient currently sedated with supported airway.Cement Despatch Operator has seen patient on previous visits.Left lower extremity visualized patient has partially unroofed/roofed purple bulla from tip of digits to distal gaiter area.Previous intact stable eschar not visible at this time due to fluid filled bulla overlapping area.Pedal pulse not palpable to comic book writer in left lower extremity .Right lower extremity pedal pulse weak.Right lower extremity has scattered roofed purple bulla with scattered areas of intact stable eschar.Cultures obtained from Left lower lateral unroofed bulla and leaking medial bulla.Lower extremity skin prep applied.Patient has unknown etiology of wounds.With rapid onset of bulla and patient having temperature noted within 24 hour period. Purple bulla is suspicious of gas gangrene.Cement Despatch Operator would request gas gangrene be ruled out for further wound care to be recommended. Flakito Weller [facility] Feb 21, 2018 15:41
[2018-02-21] MEDS ORDERED: CLINDAMYCIN 600 MG/NS PREMIX 50 ML IV SCH (18:00)
[2018-02-21] MEDS ORDERED: IOHEXOL 350 MG/ML 10 ML VIAL (for RAD DIAG) IVCONTRAST ONE (18:26)
[2018-02-21] MEDS: CLINDAMYCIN INJ 600 MG in SODIUM CHLORIDE 0.9% INJ 100 ML IV SCH ×2 (18:32→23:52)
--- NOTE | 2018-02-21 18:33 | RADRPT ---
EXAM DATE/TIME: 02/21/2018 17:58 [facility] COMPARISON: No previous studies available for comparison. INDICATIONS : Evaluate for gas gangrene. IV CONTRAST: 93 cc Omnipaque 350 (iohexol) IV ; Cumulative dose for multiple exams. RADIATION DOSE: 7.29 CTDIvol (mGy) ; Combined studies MEDICAL HISTORY : Hepatitis C. substance abuse. SURGICAL HISTORY : Hysterectomy. ENCOUNTER: Initial ACUITY: 1 week PAIN SCALE: 10/10 LOCATION: Left lower extremity TECHNIQUE: Volumetric scanning of the tibia and fibula was performed. Using automated exposure control and adju stment of the mA and/or kV according to patient size, radiation dose was kept as low as reasonably ac hievable to obtain optimal diagnostic quality images. DICOM format image data is available [facility] for review and comparison. FINDINGS: There is extensive cellulitis in the left leg with edematous changes and subcutaneous tissue. There i s a probable small subcutaneous abscess in the anterior midportion of the leg. No air in soft tissues to suggest gas gangrene. There is also extensive soft tissue swelling on the dorsum of the foot with a multiple pustule present in the midfoot. No acute bony abnormalities are seen to suggest osteomyel itis. No bony destructive changes. CONCLUSION: 1. Extensive cellulitis in the left leg and foot with probable small subcutaneous abscess in the mid leg and midfoot anteriorly. No gas gangrene identified. Kevin Wells MD on February 21, 2018 at 18:26 Board Certified Radiologist. This report was verified electronically.
--- NOTE | 2018-02-21 18:40 | RADRPT ---
EXAM DATE/TIME: 02/21/2018 17:58 [facility] COMPARISON: No previous studies available for comparison. INDICATIONS : Evaluate for gas gangrene. IV CONTRAST: 93 cc Omnipaque 350 (iohexol) IV ; Cumulative dose for multiple exams. RADIATION DOSE: 7.29 CTDIvol (mGy) ; Combined studies MEDICAL HISTORY : Hepatitis C. substance abuse SURGICAL HISTORY : Hysterectomy. ENCOUNTER: Initial ACUITY: 1 week PAIN SCALE: 10/10 LOCATION: Left foot TECHNIQUE: Volumetric scanning of the foot was performed. Using automated exposure control and adjustment of th e mA and/or kV according to patient size, radiation dose was kept as low as reasonably achievable to obtain optimal diagnostic quality images. DICOM format image data is available electronically for re view and comparison. FINDINGS: There is soft tissue swelling of the foot especially the forefoot on the dorsum of the foot with a fo marcos area of soft tissue swelling present, possibly postural. No acute fracture identified. There is s ome patchy osteopenia present most notable in the talus although no aggressive bone destruction is se en. CONCLUSION: 1. No air locules to suggest gas gangrene. Extensive cellulitis of the foot as above. Patchy osteopen ia especially in the talus. Kevin Wells MD on February 21, 2018 at 18:34 Board Certified Radiologist. This report was verified electronically.
--- NOTE | 2018-02-21 18:42 | RADRPT ---
EXAM DATE/TIME: 02/21/2018 17:58 [facility] COMPARISON: No previous studies available for comparison. INDICATIONS : Evaluate for gas gangrene. IV CONTRAST: 93 cc Omnipaque 350 (iohexol) IV ; Cumulative dose for multiple exams. RADIATION DOSE: 7.29 CTDIvol (mGy) ; Combined studies MEDICAL HISTORY : Hepatitis C. substance abuse SURGICAL HISTORY : Hysterectomy. ENCOUNTER: Initial ACUITY: 1 week PAIN SCALE: 10/10 LOCATION: Right foot TECHNIQUE: Volumetric scanning of the foot was performed. Using automated exposure control and adjustment of th e mA and/or kV according to patient size, radiation dose was kept as low as reasonably achievable to obtain optimal diagnostic quality images. DICOM format image data is available electronically for re view and comparison. FINDINGS: There is a mild subcutaneous edema in the right foot. No discrete abscess. No acute bony abnormalitie s. No evidence for gas gangrene. CONCLUSION: 1. Mild subcutaneous edema in the right foot. Kevin Wells MD on February 21, 2018 at 18:39 Board Certified Radiologist. This report was verified electronically.
--- NOTE | 2018-02-21 18:42 | RADRPT ---
EXAM DATE/TIME: 02/21/2018 17:58 [facility] COMPARISON: No previous studies available for comparison. INDICATIONS : Evaluate for gas gangrene. IV CONTRAST: 93 cc Omnipaque 350 (iohexol) IV ; Cumulative dose for multiple exams. RADIATION DOSE: 7.29 CTDIvol (mGy) ; Combined studies MEDICAL HISTORY : Hepatitis C. substance abuse SURGICAL HISTORY : Hysterectomy. ENCOUNTER: Initial ACUITY: 1 week PAIN SCALE: 10/10 LOCATION: Right lower extremity TECHNIQUE: Volumetric scanning of the tibia and fibula was performed. Using automated exposure control and adju stment of the mA and/or kV according to patient size, radiation dose was kept as low as reasonably ac hievable to obtain optimal diagnostic quality images. DICOM format image data is available [facility] for review and comparison. FINDINGS: There is mild subcutaneous edema in the right leg and foot. No discrete abscess. No acute bony abnorm alities. Findings are similar to October 29, 2017. CONCLUSION: 1. Subcutaneous edema in the right lower extremity as above. No discrete abscess. No air locules to s uggest gas gangrene. Kevin Wells MD on February 21, 2018 at 18:38 Board Certified Radiologist. This report was verified electronically.
[2018-02-22] VITALS (26 sets, daily range): BP systolic 103–123; BP diastolic 76–97; PULSE 100–121; RESP 14–35; TEMP 98.4–99.4; O2SAT 95–100
[2018-02-22] MEDS: MIDAZOLAM 100 MG/100 ML INJ 100 ML IV PRN ×3 (00:03→21:13)
[2018-02-22] MEDS: VANCOMYCIN INJ 550 MG in SODIUM CHLOR 0.9% 250 ML INJ 250 ML IV SCH (01:37)
[2018-02-22] MEDS: fentaNYL DRIP 250 ML IV PRN ×2 (01:37→18:32)
[2018-02-22] MEDS: CHLORHEXIDINE GLUCONATE 2 % 1 PACK (2 CLOTHS) TOP SCH (03:27)
[2018-02-22] MEDS: HEPARIN SODIUM - SQ 10,000 UNITS/ML VIAL SQ SCH ×2 (03:32→16:00)
[2018-02-22] MEDS: PROPOFOL 1000 MG/100 ML INJ 100 ML IV PRN (03:33)
[2018-02-22] MEDS: CLINDAMYCIN INJ 600 MG in SODIUM CHLORIDE 0.9% INJ 100 ML IV SCH ×3 (05:37→18:31)
--- NOTE | 2018-02-22 08:25 | PD.POD ---
Past Med/Surg/Social History Social History Smoking Status: Current Every Day Smoker Objective Vital Signs Vital Signs Date Time Temp Pulse Resp B/P (MAP) Pulse Ox O2 Delivery O2 Flow Rate FiO2 02/22/18 06:00 115 02/22/18 04:07 100 30 02/22/18 04:00 99.4 115 17 119/97 (104) 100 02/22/18 04:00 115 02/22/18 04:00 30 02/22/18 02:00 119 02/22/18 01:06 100 30 02/22/18 00:00 30 02/22/18 00:00 121 100 02/22/18 00:00 99.3 121 120/93 (102) 100 02/22/18 00:00 121 02/21/18 22:00 119 02/21/18 20:00 122 02/21/18 20:00 99.0 122 108/83 (91) 99 02/21/18 20:00 30 02/21/18 19:26 100 30 02/21/18 18:48 130 22 123/92 (102) 02/21/18 18:00 120 02/21/18 17:45 99 100 02/21/18 17:02 100 30 02/21/18 16:00 123 02/21/18 16:00 100.7 127 20 100 02/21/18 16:00 30 02/21/18 14:00 136 18 137/104 (115) 100 02/21/18 14:00 30 02/21/18 14:00 130 02/21/18 12:00 130 02/21/18 12:00 101.5 132 24 131/100 (110) 97 02/21/18 11:30 100 30 02/21/18 11:00 30 02/21/18 10:00 124 18 107/82 (90) 100 02/21/18 10:00 130 02/21/18 09:00 122 0 99/78 (85) 100 02/21/18 08:28 100 30 Coded Allergies: codeine (Verified Allergy, Severe, 02/20/18) ketorolac (Verified Allergy, Severe, 02/20/18) penicillin G (Verified Allergy, Intermediate, Rash, 02/20/18) Assessment & Plan A/P FULL CONSULT DICTATED. Left > Right Foot ankle leg infection, puncture wounds, ischemic changes/ Advanced, BL anterior knee/ patellaearly infection noted. BL hands, fingers with bullae as well as nose. Severe infection with advancing ischemic changes to left foot, Likely Necrotizing fasciitis. CT reviewed no gas noted BL foot ankle and leg, clinically left foot and limb appears to be beyond limb salvage. Urgent consult to Dr Farley- Vascult, BKA Left?, right foot ankle may need debridement as well. Possible coordinate care with Vascular. Case reviewed with Critical Care- Dr Cronin. Infection borders outlined of BL LE, knee. May need, Hand consult and or Plastics for nose. Will return to re-evaluate in a few hours. Will Follow very closely. Very poor prognosis. Hernan Ramos DPM Feb 22, 2018 08:25
--- NOTE | 2018-02-22 08:45 | PD.ID.CON ---
History of Present Illness Service ID Consult Requested By [facility] Reason for Consult Evaluation and Mment of Left LE wet septic gangrene and Bilateral LE cellulitis. Primary Care Physician Unknown Diagnoses: History of Present Illness is a 42 y/o CF with PMHx significant for recurrent cellulitis, Hepatitis C treatment naive, IV drug abuse, reported history of Crohn's disease , COPD. Patient has had multiple hospitalizations most recently in Oct 2017 and 2017 for recurrent bilateral LE cellulitis. 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 Cryoglobulins were detected in low amounts and AMIE was positive. Patient received IV antibiotics and wound care and was discharged to follow up with in wound care clinic. Patient was discharged to infusion clinic to receive dose of Dalbavancin on 01/07 at that time her wounds her superficial fewer and not as many with less evidence of infection. To complicate matters patient does not have a home and her last year. She has been treated with steroids for her vasculitis related non infected ulcers in the past. The rest of the history was obtained by review of medical records. With this background patient was brought in by ambulance from a temporary senior care/living facility where she is staying for evaluation of bilateral leg pain and altered mental status. One of the other residents became concerned about the patient today because of the way she was acting. They noticed several sores on her bilateral lower extremities. The patient admitted to others that she abused drugs a day prior to admission. Due to worsening mentation patient was intubated for airway protection. ICU course: Patient has high grade fevers and foot appeared to be worsening due to concern for Necrotizing fascitis a Surgery consult was placed. Podiatry evaluated patient and a stat Vascular consult to has been placed. Gen Surgery evaluated patient with me. The general opinion seems to be non salvageable left leg but await Vascular opinion. Currently not on pressors. Remains sedated. UO good. Skin lesions noted on bilateral hands on dorsal aspect with blisters. Also tip of nose appears necrotic with surrounding erythema. ID consulted for evaluation of sepsis, Mment of LLE wet septic gangrene, Right foot heel gangrene and bilateral LE cellulitis. Review of Systems ROS Limitations: Intubated Past Family Social History Allergies: Coded Allergies: codeine (Verified Allergy, Severe, 02/20/18) ketorolac (Verified Allergy, Severe, 02/20/18) penicillin G (Verified Allergy, Intermediate, Rash, 02/20/18) Past Medical History Crohn's disease per history Hepatitis C treatment melissa Recurrent cellulitis Past Surgical History Appendectomy Hysterectomy ? Some bowel surgery for Crohn's Reported Medications Reported Meds & Active Scripts Active Hydrocodone-Acetamin 5-325 mg (Hydrocodone/Acetaminophen) 5 Mg-325 Mg Tablet 1 Tab PO Q6H PRN Eq Nicotine (Nicotine) 21 Mg/24 Hour Dis 1 Patch T-DERMAL DAILY Epinephrine Inj 1 Mg/Ml (1 Ml) Inj 0.3 Mg SQ ONCE PRN Give with any signs of respiratory distress. Epinephrine Inj 1 Mg/Ml (1 Ml) Inj 0.3 Mg IV PUSH ONCE PRN Solu-Cortef Inj (Hydrocortisone Sodium Succinate) 250 Mg/2 Ml Inj 250 Mg IV PUSH ONCE PRN Give over 30-60 seconds. Dalvance Inj (Dalbavancin) 500 Mg Vial 1,500 Mg IV ONCE Initial dose of two-dose regimen for CrCl <30 mL/min Active Ordered Medications Current Medications Medications (Trade) Dose Ordered Sig/Malgorzata Route Start Time Stop Time Status Last Admin Potassium Chloride/Sodium Chloride 1,000 ml @ 100 mls/hr Q10H IV 02/20/18 14:57 02/21/18 22:44 (NS Flush) 2 ml UNSCH PRN IV FLUSH 02/20/18 15:00 (NS Flush) 2 ml BID IV FLUSH 02/20/18 21:00 02/21/18 21:13 (Tylenol) 650 mg Q6H PRN PO 02/20/18 15:00 (Ativan Inj) 2 mg Q4H PRN IV PUSH 02/20/18 15:00 02/20/18 16:30 (Zofran Inj) 4 mg Q6H PRN IV PUSH 02/20/18 15:00 (Duoneb Neb) 1 ampule Q4HR NEB PRN INH 02/20/18 15:00 (Heparin Inj) 5,000 units Q12H SQ 02/20/18 16:00 02/22/18 03:32 Miscellaneous Information 1 Q361D XX 02/20/18 15:00 (Chlorhexidine 2% Cloth) 3 pack Taper DAILY@04 TOP 02/21/18 04:00 02/17/19 03:59 02/22/18 03:27 (Chlorhexidine 2% Cloth) 3 pack UNSCH PRN TOP 02/20/18 15:00 (Damari-Colace) 1 tab BID PO 02/21/18 09:00 02/21/18 09:03 (Milk Of Magnesia Liq) 30 ml Q12H PRN PO 02/20/18 15:00 (Senokot) 17.2 mg Q12H PRN PO 02/20/18 15:00 (Dulcolax Supp) 10 mg DAILY PRN RECTAL 02/20/18 15:00 (Lactulose Liq) 30 ml DAILY PRN PO 02/20/18 15:00 Potassium Chloride 100 ml @ 50 mls/hr Q2H PRN IV 02/20/18 15:00 Potassium Chloride 100 ml @ 50 mls/hr Q2H PRN IV 02/20/18 15:00 (K-Lyte Cl Eff) 50 meq UNSCH PRN PO 02/20/18 15:00 Potassium Chloride 100 ml @ 25 mls/hr UNSCH PRN IV 02/20/18 15:00 Potassium Chloride 100 ml @ 50 mls/hr Q2H PRN IV 02/20/18 15:00 Magnesium Sulfate 4 gm/Sodium Chloride 100 ml @ 50 mls/hr UNSCH PRN IV 02/20/18 15:00 (Mag-Ox) 800 mg UNSCH PRN PO 02/20/18 15:00 Magnesium Sulfate 2 gm/Sodium Chloride 100 ml @ 50 mls/hr UNSCH PRN IV 02/20/18 15:00 (K-Phos) 2,000 mg Q4H PRN PO 02/20/18 15:00 Sodium Phosphate 30 mmol/Sodium Chloride 250 ml @ 42 mls/hr UNSCH PRN IV 02/20/18 15:00 (K-Phos) 2,000 mg UNSCH PRN PO/TUBE 02/20/18 15:00 Potassium Phosphate 30 mmol/ Sodium Chloride 260 ml @ 42 mls/hr UNSCH PRN IV 02/20/18 15:00 (Lopressor Inj) 5 mg Q6H PRN IV PUSH 02/20/18 16:45 02/20/18 17:03 (Trandate Inj) 10 mg Q4H PRN IV PUSH 02/20/18 16:45 Dexmedetomidine HCl 200 mcg/ Sodium Chloride 52 ml @ 2.08 mls/hr TITRATE PRN IV 02/20/18 18:00 (Peridex 0.12% Liq) 15 ml BID@08,20 MT 02/20/18 20:00 02/21/18 21:13 Midazolam HCl 100 ml @ 2 mls/hr TITRATE PRN IV 02/20/18 19:15 02/22/18 00:03 Fentanyl Citrate 250 ml @ 5 mls/hr TITRATE PRN IV 02/20/18 19:15 02/22/18 01:37 Propofol 100 ml @ 1.2 mls/hr TITRATE PRN IV 02/20/18 21:00 02/22/18 03:33 Acetaminophen 100 ml @ 400 mls/hr Q6H PRN IV 02/21/18 13:00 Vancomycin HCl 550 mg/Sodium Chloride 255.5 ml @ 250 mls/hr Q12H IV 02/21/18 14:00 02/22/18 01:37 Levofloxacin/ Dextrose 100 ml @ 100 mls/hr Q24H IV 02/21/18 14:00 02/21/18 13:38 Clindamycin Phosphate 600 mg/ Sodium Chloride 104 ml @ 208 mls/hr Q6H IV 02/21/18 18:00 02/22/18 05:37 Family History Could not be obtained. Social History reports her 1 year back. She admits to intravenous drug abuse in the past Smokes 1 ppd or more for many years. Does not want to quit. Counseled for 15 mins. Denies alcohol Physical Exam Vital Signs Vital Signs Date Time Temp Pulse Resp B/P (MAP) Pulse Ox O2 Delivery O2 Flow Rate FiO2 02/22/18 06:00 115 02/22/18 04:07 100 30 02/22/18 04:00 99.4 115 17 119/97 (104) 100 02/22/18 04:00 115 02/22/18 04:00 30 02/22/18 02:00 119 02/22/18 01:06 100 30 02/22/18 00:00 30 02/22/18 00:00 121 100 02/22/18 00:00 99.3 121 120/93 (102) 100 02/22/18 00:00 121 02/21/18 22:00 119 02/21/18 20:00 122 02/21/18 20:00 99.0 122 108/83 (91) 99 02/21/18 20:00 30 02/21/18 19:26 100 30 02/21/18 18:48 130 22 123/92 (102) 02/21/18 18:00 120 02/21/18 17:45 99 100 02/21/18 17:02 100 30 02/21/18 16:00 123 02/21/18 16:00 100.7 127 20 100 02/21/18 16:00 30 02/21/18 14:00 136 18 137/104 (115) 100 02/21/18 14:00 30 02/21/18 14:00 130 02/21/18 12:00 130 02/21/18 12:00 101.5 132 24 131/100 (110) 97 02/21/18 11:30 100 30 02/21/18 11:00 30 02/21/18 10:00 124 18 107/82 (90) 100 02/21/18 10:00 130 02/21/18 09:00 122 0 99/78 (85) 100 Physical Exam GENERAL: This is a well-nourished, well-developed patient, in no apparent distress. SKIN: No rashes, ecchymoses or lesions. Cool and dry. HEAD: Atraumatic. Normocephalic. No temporal or scalp tenderness. EYES: Pupils equal round and reactive. No scleral icterus. No injection or drainage. ENT: Intubated. NECK: Trachea midline. Supple, nontender, no meningeal signs. CARDIOVASCULAR: Regular rate and rhythm without murmurs, gallops, or rubs. RESPIRATORY: Clear to auscultation. Breath sounds equal bilaterally. No wheezes , rales, or rhonchi. GASTROINTESTINAL: Abdomen soft, non-tender, nondistended. MUSCULOSKELETAL: LLE with areas of wet gangrene and blackening noted. Concern for gangrene. RLE heel with area of redness and blackening and redness of R leg noted as well. UE hand dorsum with areas of blackening and erythema and blisters noted. Tip of nose with area of blackening noted. NEUROLOGICAL: Sedated Psych cooperative IV line sites with no e.o infection. Laboratory Laboratory Tests Test 02/21/18 13:11 02/21/18 13:31 Urine Color YELLOW Urine Turbidity CLEAR Urine pH 6.0 Urine Specific [place] 1.026 Urine Protein 30 Urine Glucose (UA) NEG Urine Ketones 40 Urine Occult Blood SMALL Urine Nitrite NEG Urine Bilirubin NEG Urine Urobilinogen LESS THAN 2.0 Urine Leukocyte Esterase NEG Urine RBC 8 Urine WBC 2 Urine Mucus FEW Microscopic Urinalysis Comment CATH-CULT NOT IND Procalcitonin 1.80 Date/Time Source Procedure Growth Status 02/21/18 13:21 Blood Peripheral Aerobic Blood Culture Pending Received 02/21/18 13:21 Blood Peripheral Anaerobic Blood Culture Pending Received 02/21/18 13:11 Sputum Endotracheal Gram Stain - Final Resulted 02/21/18 13:11 Sputum Endotracheal Sputum Culture Pending Resulted 02/21/18 00:00 Wound Foot Gram Stain Pending Received 02/21/18 00:00 Wound Foot Wound Culture Pending Received Result Diagram: 02/21/18 0450 02/21/18 0450 Imaging Last Impressions Lower Extremity CT 02/21/18 0000 Signed Impressions: Service Date/Time: Wednesday, February 21, 2018 17:58 - CONCLUSION: 1. Subcutaneous edema in the right lower extremity as above. No discrete abscess. No air locules to suggest gas gangrene. Kevin Wells MD Chest X-Ray 02/21/18 0000 Signed Impressions: Service Date/Time: Wednesday, February 21, 2018 14:09 - CONCLUSION: 1. COPD changes. Clayton Friedman MD Tibia/Fibula X-Ray 02/20/18 0000 Signed Impressions: Service Date/Time: Tuesday, February 20, 2018 11:01 - CONCLUSION: Soft tissue swelling and irregularity with no radiopaque foreign body. Balaji Zimmerman MD Head CT 02/20/18 0000 Signed Impressions: Service Date/Time: Tuesday, February 20, 2018 11:49 - CONCLUSION: Suboptimal exam secondary to streak and motion artifact with no evidence of hemorrhage or mass effect. Balaji Zimmerman MD Foot X-Ray 02/20/18 0000 Signed Impressions: Service Date/Time: Tuesday, February 20, 2018 11:00 - CONCLUSION: Soft tissue swelling with no radiopaque foreign body or underlying bony abnormality. Balaji Zimmerman MD Assessment and Plan Assessment and Plan Sepsis present on admission Left leg and foot with cellulitis, abscess and gangrene. Right foot heel with cellulitis and gangrene Bilateral Hand cellulitis with blisters. Bilateral LE cellulitis with blisters. Clinically looks less likely to be Necrotizing fascitis and no gas on imaging. Does not appear to be spreading beyond margins demarcated with marker. Hepatitis C Cryoglobulinemia Vasculitis : AMIE positive. IVDA Acute resp failure on vent. Penicillin allergy: rash. has tolerated Cephalosporins in past. Recs: Continue Clindamycin IV Continue Vanco IV (target 15-20) Start Cefepime IV Continue Levaquin for now. Await Vascular consult Appreciate Podiatry and Gen Surgery recs. follow cultures follow clinically if areas on face and hands worsen consider hand surgery consult and plastics for nose. Critical thinking and decision making. Zora Pompa MD Feb 22, 2018 08:45
[2018-02-22] MEDS: CHLORHEXIDINE 0.12% (ORAL KIT) 15 ML CUP MT SCH ×2 (08:50→20:58)
[2018-02-22] MEDS: DOCUSATE SODIUM 50 MG/SENNA 8.6 MG TAB PO SCH ×2 (08:50→20:59)
[2018-02-22] MEDS: SODIUM CHLORIDE 0.9% FLUSH 10 ML FLUSH IV FLUSH SCH ×2 (08:51→20:59)
--- NOTE | 2018-02-22 08:59 | MB ---
cc: Hernan Ramos DPM DATE: 02/21/2018 REASON FOR CONSULTATION: Evaluate bilateral extremities, possible gangrene. HISTORY OF PRESENT ILLNESS: This is a 42-year-old female who is intubated and sedated, seen in the ICU. The history is taken from the admission H and P. The patient has a history of polysubstance abuse, IV drug abuse, who was brought in by ambulance from a temporary long term for bilateral leg pain and altered mental status. There was noticed of several sores of the extremities, hands and feet. PAST MEDICAL HISTORY: Asthma, anxiety, cervical cancer in 1992, Crohn's disease, hepatitis C. PAST SURGICAL HISTORY: Exploratory laparotomy. SOCIAL HISTORY: Alcohol: Yes. Tobacco: Yes. Possible IV heroin abuse in the past. CODED ALLERGIES: CODEINE, KETOROLAC, PENICILLIN G. INPATIENT MEDICATIONS: The patient is receiving clindamycin, vancomycin and Levaquin. Please see complete medication list in chart. PHYSICAL EXAMINATION: VITAL SIGNS: Temperature is 99, pulse rate 115, respiratory rate 17, blood pressure 119/97, pulse oximetry 100% FiO2 30. GENERAL: This is an underweight female, intubated, sedated. HEENT: The patient has an ischemic lesion of her nostril. EXTREMITIES: Upon examining her hands, there are a purple bullae seen on the proximal aspect of her fingers with mild swelling. The bilateral lower extremities are examined. Left lower extremity: There is an expansile circumferential ischemic bullae that encompasses near the entire foot, hindfoot and calcaneal fat pad. Upon attempting to palpate posterior tibialis pulse there is difficulty. The dorsalis pedis is also hard to palpate through the edema. There is no obvious fluctuance noted or crepitus of air within the soft tissue; however, there is extensive edema and this goes up to the posterior gastroc nemius junction at the level of the Achilles with obvious necrotic. There is no obvious odor or smell of anaerobes. The patient does have a palpable femoral pulse. The right lower extremity is examined. Similar findings are noted, but to a lesser degree, there is early ischemic bulla formation of the dorsal aspect of the foot and posterior heel. There is a readily palpable dorsalis pedis. There is no odor. There is no soft tissue emphysema felt. LABORATORY FINDINGS: White blood cell 5.3, hemoglobin and hematocrit, 11 and 33, platelet count is 168. Chem-7: Sodium was 135, potassium 4.0, chloride 103, CO2 22.5, BUN is 12, creatinine 0.49, random glucose is 91, AST 46, ALT 17, alkaline phosphatase is 121. Microbial findings: Blood culture is negative x 1 day. Gram's stain, wound and culture all pending imaging IMAGING STUDIES: X-ray of the foot, ankle, tib-fib show no obvious bony process. Lower extremity CT shows expansile swelling of the soft tissue envelope. No obvious abscess noted. Possible cellulitis is mentioned. No air bubbles noted within the fascial planes. ASSESSMENT AND PLAN: Left foot, ankle and leg infection. Multiple puncture wounds, ischemic changes, advanced, left worse than right. Bilateral prepatellar cellulitic findings. Bilateral hands bullae fingers as well as nose issue. Pertaining to the lower extremities. I am worrisome for severe infection with advancing ischemic changes to the left foot, likely necrotizing fasciitis. CT reviewed with no gas noted. However, I do feel that the left foot is likely beyond a limb salvage standpoint. I consulted urgently Dr. Mays for evaluation for likely below the knee amputation. The right foot and ankle may need debridement as well. We will attempt to coordinate care with vascular if deemed appropriate. The case was discussed with Dr. Cronin. All infection borders were outlined for possible spread. I may recommend hand or plastics consultation for the proximal beyond the podiatric scope evaluation. I will return within the next few hours to monitor if there is any spread of infection. This is a very poor prognosis. Thank you for this consultation. KRYSTINA Andrea/INGRID , 08:33 AM , 08:59 AM
--- NOTE | 2018-02-22 09:43 | PD.CONS ---
cc: Ramiro Miles MD HPI Service General Surgery Consult Requested By Dr. Pompa Reason for Consult Infected leg wounds; sepsis Primary Care Physician Unknown History of Present Illness This is a 42 year old female who is intubated and sedated on exam. The history is obtained from the electronic medical records. Reports state the patient has a past medical history of polysubstance abuse and reportedly her last use was this past , asthma, cervical cancer in 1992, Crohn's disease and hepatitis C. She has had multiple hospitalizations in the past year, the most recent being about 7 weeks ago. 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 Per reports, the patient was following [facility] but compliance may be any issue. The patient came to the ED for evaluation of BLE leg wounds. She is currently living in a temporary housing facility. The patient was intubated for airway protection. She was given a dose of Dalvance in the ED. CT scans of bilateral feet and tibia/fibula were obtained. Her WBC is normal. A General Surgery consultation has been requested as well as a Podiatry consult and Vascular consult. Review of Systems ROS Limitations: Clinical Condition, Intubated Past Family Social History Past Medical History Obtained for electronic medical record Polysubstance abuse Asthma Cervical cancer Crohn's disease Hepatitis C Past Surgical History Exploratory laparotomy Reported Medications Unknown Allergies: Coded Allergies: codeine (Verified Allergy, Severe, 02/20/18) ketorolac (Verified Allergy, Severe, 02/20/18) penicillin G (Verified Allergy, Intermediate, Rash, 02/20/18) Active Ordered Medications Current Medications Medications (Trade) Dose Ordered Sig/Malgorzata Route Start Time Stop Time Status Last Admin Potassium Chloride/Sodium Chloride 1,000 ml @ 100 mls/hr Q10H IV 02/20/18 14:57 02/21/18 22:44 (NS Flush) 2 ml UNSCH PRN IV FLUSH 02/20/18 15:00 (NS Flush) 2 ml BID IV FLUSH 02/20/18 21:00 02/22/18 08:51 (Tylenol) 650 mg Q6H PRN PO 02/20/18 15:00 (Ativan Inj) 2 mg Q4H PRN IV PUSH 02/20/18 15:00 02/20/18 16:30 (Zofran Inj) 4 mg Q6H PRN IV PUSH 02/20/18 15:00 (Duoneb Neb) 1 ampule Q4HR NEB PRN INH 02/20/18 15:00 (Heparin Inj) 5,000 units Q12H SQ 02/20/18 16:00 02/22/18 03:32 Miscellaneous Information 1 Q361D XX 02/20/18 15:00 (Chlorhexidine 2% Cloth) 3 pack Taper DAILY@04 TOP 02/21/18 04:00 02/17/19 03:59 02/22/18 03:27 (Chlorhexidine 2% Cloth) 3 pack UNSCH PRN TOP 02/20/18 15:00 (Damari-Colace) 1 tab BID PO 02/21/18 09:00 02/21/18 09:03 (Milk Of Magnesia Liq) 30 ml Q12H PRN PO 02/20/18 15:00 (Senokot) 17.2 mg Q12H PRN PO 02/20/18 15:00 (Dulcolax Supp) 10 mg DAILY PRN RECTAL 02/20/18 15:00 (Lactulose Liq) 30 ml DAILY PRN PO 02/20/18 15:00 Potassium Chloride 100 ml @ 50 mls/hr Q2H PRN IV 02/20/18 15:00 Potassium Chloride 100 ml @ 50 mls/hr Q2H PRN IV 02/20/18 15:00 (K-Lyte Cl Eff) 50 meq UNSCH PRN PO 02/20/18 15:00 Potassium Chloride 100 ml @ 25 mls/hr UNSCH PRN IV 02/20/18 15:00 Potassium Chloride 100 ml @ 50 mls/hr Q2H PRN IV 02/20/18 15:00 Magnesium Sulfate 4 gm/Sodium Chloride 100 ml @ 50 mls/hr UNSCH PRN IV 02/20/18 15:00 (Mag-Ox) 800 mg UNSCH PRN PO 02/20/18 15:00 Magnesium Sulfate 2 gm/Sodium Chloride 100 ml @ 50 mls/hr UNSCH PRN IV 02/20/18 15:00 (K-Phos) 2,000 mg Q4H PRN PO 02/20/18 15:00 Sodium Phosphate 30 mmol/Sodium Chloride 250 ml @ 42 mls/hr UNSCH PRN IV 02/20/18 15:00 (K-Phos) 2,000 mg UNSCH PRN PO/TUBE 02/20/18 15:00 Potassium Phosphate 30 mmol/ Sodium Chloride 260 ml @ 42 mls/hr UNSCH PRN IV 02/20/18 15:00 (Lopressor Inj) 5 mg Q6H PRN IV PUSH 02/20/18 16:45 02/20/18 17:03 (Trandate Inj) 10 mg Q4H PRN IV PUSH 02/20/18 16:45 Dexmedetomidine HCl 200 mcg/ Sodium Chloride 52 ml @ 2.08 mls/hr TITRATE PRN IV 02/20/18 18:00 (Peridex 0.12% Liq) 15 ml BID@08,20 MT 02/20/18 20:00 02/22/18 08:50 Midazolam HCl 100 ml @ 2 mls/hr TITRATE PRN IV 02/20/18 19:15 02/22/18 00:03 Fentanyl Citrate 250 ml @ 5 mls/hr TITRATE PRN IV 02/20/18 19:15 02/22/18 01:37 Propofol 100 ml @ 1.2 mls/hr TITRATE PRN IV 02/20/18 21:00 02/22/18 03:33 Acetaminophen 100 ml @ 400 mls/hr Q6H PRN IV 02/21/18 13:00 Vancomycin HCl 550 mg/Sodium Chloride 255.5 ml @ 250 mls/hr Q12H IV 02/21/18 14:00 02/22/18 01:37 Levofloxacin/ Dextrose 100 ml @ 100 mls/hr Q24H IV 02/21/18 14:00 02/21/18 13:38 Clindamycin Phosphate 600 mg/ Sodium Chloride 104 ml @ 208 mls/hr Q6H IV 02/21/18 18:00 02/22/18 05:37 Family History Unable to obtain Social History Unable to obtain Reports of polysubstance abuse; + drug toxicity for opiates, benzodiazepines, amphetamines, cocaine Physical Exam Vital Signs Vital Signs Date Time Temp Pulse Resp B/P (MAP) Pulse Ox O2 Delivery O2 Flow Rate FiO2 02/22/18 06:00 115 02/22/18 04:07 100 30 02/22/18 04:00 99.4 115 17 119/97 (104) 100 02/22/18 04:00 115 02/22/18 04:00 30 02/22/18 02:00 119 02/22/18 01:06 100 30 02/22/18 00:00 30 02/22/18 00:00 121 100 02/22/18 00:00 99.3 121 120/93 (102) 100 02/22/18 00:00 121 02/21/18 22:00 119 02/21/18 20:00 122 02/21/18 20:00 99.0 122 108/83 (91) 99 02/21/18 20:00 30 02/21/18 19:26 100 30 02/21/18 18:48 130 22 123/92 (102) 02/21/18 18:00 120 02/21/18 17:45 99 100 02/21/18 17:02 100 30 02/21/18 16:00 123 02/21/18 16:00 100.7 127 20 100 02/21/18 16:00 30 02/21/18 14:00 136 18 137/104 (115) 100 02/21/18 14:00 30 02/21/18 14:00 130 02/21/18 12:00 130 02/21/18 12:00 101.5 132 24 131/100 (110) 97 02/21/18 11:30 100 30 02/21/18 11:00 30 02/21/18 10:00 124 18 107/82 (90) 100 02/21/18 10:00 130 Physical Exam GENERAL: 42 year old critically ill appearing female orally intubated on mechanical ventilation SKIN: Tip of nose with dark area; Bilateral hands: each knuckle area has an area of black non draining wound; RIGHT leg: heal with black area with minimal oozing drainage; LEFT leg: from mid-calf down has areas of black areas with dark blisters---no crepitus. HEAD: Atraumatic. Normocephalic. EYES: Pupils equal and round. No scleral icterus. No injection or drainage. ENT: No nasal bleeding or discharge. Mucous membranes pink and moist. NECK: Trachea midline. CARDIOVASCULAR: Regular rate and rhythm. RESPIRATORY: No accessory muscle use. Clear to auscultation. Breath sounds equal bilaterally. GASTROINTESTINAL: Abdomen soft, non-tender, nondistended. Tattoo around umbilicus. MUSCULOSKELETAL: See above in skin assessment. NEUROLOGICAL: Intubated/Sedated. PSYCHIATRIC: Unable to examine. Laboratory Laboratory Tests Test 02/21/18 13:11 02/21/18 13:31 Urine Color YELLOW Urine Turbidity CLEAR Urine pH 6.0 Urine Specific [place] 1.026 Urine Protein 30 Urine Glucose (UA) NEG Urine Ketones 40 Urine Occult Blood SMALL Urine Nitrite NEG Urine Bilirubin NEG Urine Urobilinogen LESS THAN 2.0 Urine Leukocyte Esterase NEG Urine RBC 8 Urine WBC 2 Urine Mucus FEW Microscopic Urinalysis Comment CATH-CULT NOT IND Procalcitonin 1.80 Date/Time Source Procedure Growth Status 02/21/18 13:21 Blood Peripheral Aerobic Blood Culture Pending Received 02/21/18 13:21 Blood Peripheral Anaerobic Blood Culture Pending Received 02/21/18 13:11 Sputum Endotracheal Gram Stain - Final Resulted 02/21/18 13:11 Sputum Endotracheal Sputum Culture Pending Resulted 02/21/18 00:00 Wound Foot Gram Stain Pending Received 02/21/18 00:00 Wound Foot Wound Culture Pending Received Result Diagram: 02/24/18 0400 02/24/18 0400 Imaging Last 48 hours Impressions Lower Extremity CT 02/21/18 0000 Signed Impressions: Service Date/Time: Wednesday, February 21, 2018 17:58 - CONCLUSION: 1. Subcutaneous edema in the right lower extremity as above. No discrete abscess. No air locules to suggest gas gangrene. Kevin Wells MD Lower Extremity CT 02/21/18 0000 Signed Impressions: Service Date/Time: Wednesday, February 21, 2018 17:58 - CONCLUSION: 1. Mild subcutaneous edema in the right foot. Kevin Wells MD Lower Extremity CT 02/21/18 0000 Signed Impressions: Service Date/Time: Wednesday, February 21, 2018 17:58 - CONCLUSION: 1. Extensive cellulitis in the left leg and foot with probable small subcutaneous abscess in the mid leg and midfoot anteriorly. No gas gangrene identified. Kevin Wells MD Lower Extremity CT 02/21/18 0000 Signed Impressions: Service Date/Time: Wednesday, February 21, 2018 17:58 - CONCLUSION: 1. No air locules to suggest gas gangrene. Extensive cellulitis of the foot as above. Patchy osteopenia especially in the talus. Kevin Wells MD Chest X-Ray 02/21/18 0000 Signed Impressions: Service Date/Time: Wednesday, February 21, 2018 14:09 - CONCLUSION: 1. COPD changes. Clayton Friedman MD Chest X-Ray 02/20/18 1010 Signed Impressions: Service Date/Time: Tuesday, February 20, 2018 10:57 - CONCLUSION: No acute disease. Balaji Zimmerman MD Assessment and Plan Assessment and Plan This is a 42 year old female with multiple extremities wounds; ? gangrene -Appears the LEFT extremity is beyond salvage--- Vascular consult to Dr. Mays -Podiatry following--- may require surgical debridement of RIGHT heel -Could benefit from plastic/hand consult for nose/hand -ID following---On Clindamycin; Vancomycin; Cefepime ---Discussed with Dr. Pompa at bedside -Will defer surgical management to Vascular, Podiatry and Plastics -Thank you for this consult; We will be available on PRN basis. Discussed Condition With Dr. Jd Pompa Attending Statement Patient seen at bedside appears to have wet gangrene Appears septic but stable multiple necrotic wound areas worse on left foot will likely need amputation await vasc rescs ID for abx coverage will follow prn Attestation The exam, history, and the medical decision-making described in the above note were completed with the assistance of the mid-level provider. I reviewed and agree with the findings presented. I attest that I had a [id number] encounter with the patient on the same day, and personally performed and documented my assessment and findings in the medical record. Tameka Thompson/Stroboroma Operator LUCY Feb 22, 2018 09:42 Ramiro Miles MD Feb 24, 2018 11:21
[2018-02-22] MEDS: NS + KCL 20 MEQ INJ 1,000 ML IV SCH ×2 (11:01→21:42)
[2018-02-22] MEDS: CEFEPIME INJ 2,000 MG in SODIUM CHLORIDE 0.9% INJ 100 ML IV SCH ×2 (11:03→18:08)
[2018-02-22 11:11] LABS: AUTOMATED NEUTROPHIL # 1.9 TH/MM3 (1.8-7.7); BASOPHIL % 0.7 % (0.0-2.0); EOSINOPHIL % 0.7 % (0.0-4.0); HEMATOCRIT 27.1 % (35.0-46.0); HEMOGLOBIN 8.8 GM/DL (11.6-15.3); LYMPH % 36.5 % (9.0-44.0); LYMPHOCYTE # 1.4 TH/MM3 (1.0-4.8); MEAN CELL VOLUME 74.6 FL (80.0-100.0); MEAN CORPUSCULAR HEMOGLOBIN 24.2 PG (27.0-34.0); MEAN CORPUSCULAR HGB CONC 32.4 % (32.0-36.0); MEAN PLATELET VOLUME 8.1 FL (7.0-11.0); MONO % 11.4 % (0.0-8.0); MONOCYTE # 0.4 TH/MM3 (0-0.9); NEUT % 50.7 % (16.0-70.0); PLATELET COUNT 166 TH/MM3 (150-450); RED BLOOD COUNT 3.63 MIL/MM3 (4.00-5.30); RED CELL DISTRIBUTION WIDTH 18.4 % (11.6-17.2); WHITE BLOOD COUNT 3.8 TH/MM3 (4.0-11.0)
[2018-02-22 11:25] LABS: PROTHROMBIN TIME - PATIENT 10.4 SEC (9.8-11.6)
[2018-02-22 11:33] LABS: ALBUMIN 1.7 GM/DL (3.4-5.0); ALT (GPT) 21 U/L (10-53); AST (GOT) 60 U/L (15-37); BICARBONATE 23.9 MEQ/L (21.0-32.0); BLOOD UREA NITROGEN 12 MG/DL (7-18); CALCIUM 7.7 MG/DL (8.5-10.1); CHLORIDE 106 MEQ/L (98-107); CREATININE 0.33 MG/DL (0.50-1.00); GLOMERULAR FILTRATION RATE 216 ML/MIN (>89); GLUCOSE,RANDOM 76 MG/DL (74-106); MAGNESIUM 1.8 MG/DL (1.5-2.5); SODIUM (NA) 138 MEQ/L (136-145)
[2018-02-22 11:36] LABS: ALKALINE PHOSPHATASE 93 U/L (45-117); PHOSPHORUS 2.4 MG/DL (2.5-4.9); TOTAL BILIRUBIN ADULT 0.4 MG/DL (0.2-1.0); TOTAL PROTEIN 5.4 GM/DL (6.4-8.2)
--- NOTE | 2018-02-22 11:51 | HHI.CCPN ---
Subjective Remarks/Hospital Course 02/20: 42-year-old female with history of polysubstance abuse, IVDU, brought in by ambulance from a temporary residential/living facility where she is staying for evaluation of bilateral leg pain and altered mental status. One of the other residents became concerned about the patient today because of the way she was acting. They noticed several sores on her bilateral lower extremities. The patient admits to IV drug abuse, last use was yesterday. She complains of pain in her bilateral legs, however is otherwise a very poor historian writhing in bed moaning in pain. Chart review shows that the patient has been admitted for this in the past. 02/21: Sedated, easily arousable, orally intubated on mechanical ventilation. Spiked a temperature 101.5 for which Arellano cultures ordered and we are initiating empiric vancomycin and Levaquin. 2-D echo ordered to evaluate heart valves. She had a normal white count this morning. Wounds or bilateral lower extremities unchanged since admission and appeared to be chronic. 02/22: T-max 99.4. Patient underwent TTE this a.m., results pending. Consultation and evaluation performed by podiatry this a.m., vascular surgery urgently consulted. Plan scheduling for left BKA today. Multiple punctate lesions, possible emboli type wounds bilateral upper and lower extremities, as well as left nare. Patient remains sedated and intubated on fentanyl and Versed infusions currently. Objective Vital Signs Date Time Temp Pulse Resp B/P (MAP) Pulse Ox O2 Delivery O2 Flow Rate FiO2 02/22/18 10:40 100 30 02/22/18 08:00 110 02/22/18 04:00 99.4 17 119/97 (104) 02/20/18 16:43 Room Air Intake and Output 02/22/18 02/22/18 02/23/18 08:00 16:00 00:00 Intake Total 1562.3 ml Output Total 600 ml Balance 962.3 ml Result Diagram: 02/22/18 1050 02/22/18 1050 Imaging Last Impressions Chest X-Ray 02/20/18 1010 Signed Impressions: Service Date/Time: Tuesday, February 20, 2018 10:57 - CONCLUSION: No acute disease. Balaji Zimmerman MD Tibia/Fibula X-Ray 02/20/18 0000 Signed Impressions: Service Date/Time: Tuesday, February 20, 2018 11:01 - CONCLUSION: Soft tissue swelling and irregularity with no radiopaque foreign body. Balaji Zimmerman MD Head CT 02/20/18 0000 Signed Impressions: Service Date/Time: Tuesday, February 20, 2018 11:49 - CONCLUSION: Suboptimal exam secondary to streak and motion artifact with no evidence of hemorrhage or mass effect. Balaji Zimmerman MD Foot X-Ray 02/20/18 0000 Signed Impressions: Service Date/Time: Tuesday, February 20, 2018 11:00 - CONCLUSION: Soft tissue swelling with no radiopaque foreign body or underlying bony abnormality. Balaji Zimmerman MD Objective Remarks Physical exam GENERAL: Well-developed, cachectic appearing, orally intubated on mechanical ventilation, lying in bed. SKIN: Several wounds/ulcerations to bilateral lower extremities with surrounding ecchymosis, no purulent drainage, no crepitus, no fluctuance or induration. HEAD: Atraumatic. Normocephalic. EYES: Pupils equal and round, 3 mm, reactive to light. ENT: Mucous membranes pink and dry. NECK: Trachea midline. No JVD. No nuchal rigidity. CARDIOVASCULAR: S1-S2 regular, no gallop or murmur. No murmur appreciated. Bilateral dorsalis pedis pulses are brisk and equal. RESPIRATORY: Orally intubated on mechanical ventilation. Clear to auscultation. Breath sounds equal bilaterally. GASTROINTESTINAL: Abdomen soft, non-tender, nondistended. MUSCULOSKELETAL: Skin exam as above with moderate edema to left foot and ankle. Multiple large blood blistering bilateral left and right lower extremities,L> R. Multiple petechiae bilateral hands with blistering NEUROLOGICAL: Sedated, arousable, orally intubated on mechanical ventilation, pupils 3 mm bilaterally reactive, follows commands on lightening sedation. No obvious cranial nerve deficits. Motor grossly within normal limits. PSYCHIATRIC: Unable to assess. A/P Assessment and Plan Assessment 42 year old female: Encephalopathy secondary to substance abuse Hyponatremia Polysubstance abuse positive for amphetamines, cocaine, benzodiazepine, opioids Acute respiratory failure on mechanical ventilation Fever with suspected sepsis Multiple leg ulcers/wounds which appeared chronic History of IV drug use Sinus Tachycardia Uncontrolled hypertension Hypoalbuminemia Malnutrition Plan: Neuro: Sedation with Midazolam/ Propofol/fentanyl gtt. Daily sedation vacation. Ativan when necessary for agitation. Will use Precedex if needed to control agitation/withdrawal symptoms. Follow neuro status. Cardiovascular: IV hydration. Received 2 L normal saline earlier. Watch for hypotension. Lopressor 2.5 mg IV every 6 hourly for tachycardia with labetalol 10 mg IV every 4 hourly when necessary for hypertension. Continue normal saline with 20 of K at 100 cc/hr. 02/22 Follow-up echo report- 2-D echo will be obtained to evaluate heart valves. Obtain EKG Pulmonary: Supplemental O2 as needed. Bronchodilators when necessary GI/liver: If not extubated we'll initiate tube feeds. Dietary consult for tubefeeds Renal/: IV hydration, strict intake output, monitor and replete elect lites, follow BUN/creatinine. Continue normal saline for hyponatremia. ID: Patient had a normal WBC however spiked fever 02/21. She has chronic leg wounds. Repeat chest x-ray and arellano culture and initiate empiric antibiotics with IV vancomycin and Levaquin. Check pro calcitonin. Wound care consulted for lower extremity leg wounds. Endocrine: Watch for hyperglycemia, SSI for glycemic control if needed. Heme: Follow CBC. Type and screen placed 2 units packed red blood cells on hold for surgery. Msk: Vascular surgery consulted-planned left BKA. Podiatry consulted-possible debridement right heel in the near future. Discussed with Prophylaxis:SQ Heparin placed on hold for impending surgery, SCDs for DVT prophylaxis. my billing statement This patient remains critically ill with one or more organ systems which are or may become a threat to life. I have spent in excess of 37 minutes discontinuously in the care and management of this patient. This time is exclusive of procedures, and includes, but is not limited to, evaluation of the patient, review of the medical record, discussions with family, consultants, nursing staff, or respiratory therapy, and documentation in the medical record. D/W PRODUCT DEVELOPMENT DIRECTOR (Kait), and Dr. Ramos Physician Vandana Ty MD Feb 22, 2018 11:51
[2018-02-22] MEDS ORDERED: VECURONIUM BROMIDE 20 MG VIAL IV ONE (12:00)
[2018-02-22] MEDS ORDERED: LACTATED RINGER'S 1000 ML INJ 1,000 ML IV ONE (12:00)
[2018-02-22] MEDS ORDERED: STERILE WATER FOR INJECTION 20 ML VIAL IV ONE (12:00)
[2018-02-22] MEDS ORDERED: Vancomycin Consult Pharmacy 1 EA OTHER SCH (12:00)
[2018-02-22] MEDS ORDERED: ARTIFICIAL TEARS OPTH SOLN 15 ML BTL EACH EYE PRN (13:00)
[2018-02-22] MEDS: LEVOFLOXACIN 500 MG PREMIX INJ 100 ML IV SCH (13:09)
[2018-02-22] MEDS ORDERED: SODIUM PHOSPHATE INJ 15 MMOL in SODIUM CHLORIDE 0.9% INJ 100 ML IV ONE (13:45)
[2018-02-22] MEDS: VANCOMYCIN INJ 750 MG in SODIUM CHLOR 0.9% 250 ML INJ 250 ML IV SCH ×2 (14:17→20:59)
--- NOTE | 2018-02-22 14:24 | PD.WCN.NOT ---
Wound Consult Description: Follow up of LLE Recommendation: Please reconsult wound care if need post op Additional Information: Wound care will follow patient under orders of Surgeon or car oiler.Please reconsult wound care if needed after surgery. Flakito Weller [facility] Feb 22, 2018 14:24
--- NOTE | 2018-02-22 14:50 | PD.CAR.PN ---
CVT Progress Note Subjective/Hospital Course: 42-year-old female intubated ventilated and sedated Patient is apparently a IV drug abuser was brought in hypotensive and septic to our institution is currently under care Podiatry was consulted for evaluation of the feet and spoke with Dr. Ramos about it On exam patient has palpable bilateral femoral pulses and palpable popliteal pulses on the right side posterior tibial is palpable dorsalis pedis is by Doppler patient has multiple ulcers and necrotic areas over the right foot. On the left foot I can Doppler posterior tibial pulse and dorsalis pedis pulse but the entire foot is at this point involved in gangrene which has started from the skin down and that this time the entire foot is essentially black Fluid covered bulla and gangrenous soft tissue is going all the way down to the tendons and gangrene involves entire foot from the metatarsals, over the metatarsals to the tarsals and to the ankle and then over to the heel. Toes are spared. This is a result of multiple injections in this area and gangrenous spread. This patient clearly has inflow vessels which are open but she is perfusing a devitalized foot She needs immediate amputation patient will undergo two-stage amputation in the guillotine fashion with secondary closure in a few days. I fully agree with Dr. Ramos's assessment Objective: Vital Signs Date Time Temp Pulse Resp B/P (MAP) Pulse Ox O2 Delivery O2 Flow Rate FiO2 02/22/18 12:34 106 14 107/81 (90) 100 02/22/18 12:29 97 30 02/22/18 12:00 99.3 107 17 106/83 (91) 100 02/22/18 12:00 107 02/22/18 12:00 30 02/22/18 11:30 107 15 111/83 (92) 100 02/22/18 11:00 107 15 110/85 (93) 100 02/22/18 10:40 100 30 02/22/18 10:30 108 15 109/82 (91) 100 02/22/18 10:00 108 02/22/18 10:00 108 35 107/76 (86) 100 02/22/18 09:30 109 17 103/77 (86) 100 02/22/18 09:00 108 17 110/81 (91) 100 02/22/18 08:30 111 15 109/82 (91) 100 02/22/18 08:00 110 02/22/18 08:00 99.4 112 17 108/81 (90) 100 02/22/18 08:00 30 02/22/18 06:00 115 02/22/18 04:07 100 30 02/22/18 04:00 99.4 115 17 119/97 (104) 100 02/22/18 04:00 115 02/22/18 04:00 30 02/22/18 02:00 119 02/22/18 01:06 100 30 02/22/18 00:00 30 02/22/18 00:00 121 100 02/22/18 00:00 99.3 121 120/93 (102) 100 02/22/18 00:00 121 02/21/18 22:00 119 02/21/18 20:00 122 02/21/18 20:00 99.0 122 108/83 (91) 99 02/21/18 20:00 30 02/21/18 19:26 100 30 02/21/18 18:48 130 22 123/92 (102) 02/21/18 18:00 120 02/21/18 17:45 99 100 02/21/18 17:02 100 30 02/21/18 16:00 123 02/21/18 16:00 100.7 127 20 100 02/21/18 16:00 30 Labs: Laboratory Tests Test 02/22/18 10:50 02/22/18 13:30 White Blood Count 3.8 TH/MM3 (4.0-11.0) Red Blood Count 3.63 MIL/MM3 (4.00-5.30) Hemoglobin 8.8 GM/DL (11.6-15.3) Hematocrit 27.1 % (35.0-46.0) Mean Corpuscular Volume 74.6 FL (80.0-100.0) Mean Corpuscular Hemoglobin 24.2 PG (27.0-34.0) Mean Corpuscular Hemoglobin Concent 32.4 % (32.0-36.0) Red Cell Distribution Width 18.4 % (11.6-17.2) Platelet Count 166 TH/MM3 (150-450) Mean Platelet Volume 8.1 FL (7.0-11.0) Neutrophils (%) (Auto) 50.7 % (16.0-70.0) Lymphocytes (%) (Auto) 36.5 % (9.0-44.0) Monocytes (%) (Auto) 11.4 % (0.0-8.0) Eosinophils (%) (Auto) 0.7 % (0.0-4.0) Basophils (%) (Auto) 0.7 % (0.0-2.0) Neutrophils # (Auto) 1.9 TH/MM3 (1.8-7.7) Lymphocytes # (Auto) 1.4 TH/MM3 (1.0-4.8) Monocytes # (Auto) 0.4 TH/MM3 (0-0.9) Eosinophils # (Auto) 0.0 TH/MM3 (0-0.4) Basophils # (Auto) 0.0 TH/MM3 (0-0.2) CBC Comment DIFF FINAL Differential Comment Prothrombin Time 10.4 SEC (9.8-11.6) Prothromb Time International Ratio 1.0 RATIO Activated Partial Thromboplast Time 26.1 SEC (24.3-30.1) Blood Urea Nitrogen 12 MG/DL (7-18) Creatinine 0.33 MG/DL (0.50-1.00) Random Glucose 76 MG/DL (74-106) Total Protein 5.4 GM/DL (6.4-8.2) Albumin 1.7 GM/DL (3.4-5.0) Calcium Level 7.7 MG/DL (8.5-10.1) Phosphorus Level 2.4 MG/DL (2.5-4.9) Magnesium Level 1.8 MG/DL (1.5-2.5) Alkaline Phosphatase 93 U/L (45-117) Aspartate Amino Transf (AST/SGOT) 60 U/L (15-37) Alanine Aminotransferase (ALT/SGPT) 21 U/L (10-53) Total Bilirubin 0.4 MG/DL (0.2-1.0) Sodium Level 138 MEQ/L (136-145) Potassium Level 4.2 MEQ/L (3.5-5.1) Chloride Level 106 MEQ/L (98-107) Carbon Dioxide Level 23.9 MEQ/L (21.0-32.0) Anion Gap 8 MEQ/L (5-15) Estimat Glomerular Filtration Rate 216 ML/MIN (>89) Result Diagram: 02/22/18 1050 02/22/18 1050 David Mays MD Feb 22, 2018 14:50
--- NOTE | 2018-02-22 16:15 | EKG ---
Date Performed: 02/22/2018 Time Performed: 11:48:32 PTAGE: 42 years EKG: SINUS TACHYCARDIA WITH SHORT DC INTERVAL MARKED T-WAVE ABNORMALITY, CONSIDER ANTEROLATERAL ISCHEMIA MODERATE T-WAVE ABNORMALITY, CONSIDER INFERIOR ISCHEMIA ABNORMAL ECG PREVIOUS TRACING : 12/31/2017 12.34 Diffuse ischemic change is new since prior tracing. Clinica l correlation is strongly recommended. Cannot rule out injury pattern. DOCTOR: Sukh Ferrer Interpretating Date/Time 02/22/2018 16:11:20
--- NOTE | 2018-02-22 17:35 | ECHRPT ---
Indication: Endocarditis CONCLUSIONS The left ventricular systolic function is severely reduced with an estimated ejection fraction in th e range of 25-30%. There is global left ventricular dysfunction with distal anteroseptal and apical akinesis. The right ventricular systoilc function is mildly decreased. Trace mitral valve regurgitation. There is trace tricuspid valve regurgitation. BP: 107 / 83 HR: 123 Rhythm: Sinus MEASUREMENTS (Male / Female) Normal Values Technical Quality:Fair 2D ECHO LV Diastolic Diameter PLAX 4.8 cm 4.2 - 5.9 / 3.9 - 5.3 cm LV Systolic Diameter PLAX 4.1 cm IVS Diastolic Thickness 0.7 cm 0.6 - 1.0 / 0.6 - 0.9 cm LVPW Diastolic Thickness 0.7 cm 0.6 - 1.0 / 0.6 - 0.9 cm LV Relative Wall Thickness 0.3 RV Internal Dim ED PLAX 1.9 cm LV Ejection Fraction MOD BP 30.6 % >= 55 % LV Ejection Fraction MOD 4C 24.5 % LV Ejection Fraction 4C AL 23.1 % LV Ejection Fraction MOD 2C 31.9 % LV Ejection Fraction 2C AL 31.5 % FINDINGS LEFT VENTRICLE The left ventricular systolic function is severely reduced with an estimated ejection fraction in th e range of 25-30%. Normal left ventricular size. Wall thickness is normal. There is global left ventricular dysfunction with distal anteroseptal and apical akinesis. RIGHT VENTRICLE The right ventricular size is normal. The right ventricular systoilc function is mildly decreased. LEFT ATRIUM The left atrial size is normal. RIGHT ATRIUM The right atrial size is normal. ATRIAL SEPTUM Normal atrial septal thickness. MITRAL VALVE Grossly normal Trace mitral valve regurgitation. No mitral valve stenosis. AORTIC VALVE Grossly normal No aortic valve stenosis. No aortic valve regurgitation. TRICUSPID VALVE Grossly normal There is trace tricuspid valve regurgitation. No tricuspid valve stenosis. PULMONARY VALVE The pulmonary valve is not well visualized. Prosper Conner DO (Electronically Signed) Final Date:22 February 2018 17:34
--- NOTE | 2018-02-22 17:36 | MP ---
cc: David Mays MD DATE OF OPERATION: 02/22/2018 PREOPERATIVE DIAGNOSIS: Gangrene of the left foot, sepsis. POSTOPERATIVE DIAGNOSIS: Gangrene of the left foot, sepsis. OPERATIVE PROCEDURE: Left below-knee guillotine amputation. SURGEON: David Mays MD ANESTHESIA: General. ESTIMATED BLOOD LOSS: 50 mL INDICATION FOR PROCEDURE: This 42-year-old female presented to the hospital with septic shock after shooting drugs in her leg. The patient is a known drug abuser. She is now on the ventilator. I was asked to see her after electrolytic etcher, Dr. Ramos, evaluated the patient and deemed her left foot not to be salvageable. On physical exam, the patient indeed has gangrene of most of the left foot extending from metatarsal area to the ankle, foot being black and gangrenous. DESCRIPTION OF PROCEDURE: The patient was prepped and draped in the usual fashion. Incision was made circumferentially over the left leg about [address] from the ankle. This wound was deepened with cautery down to the tibia and fibula, which were then transected with oscillating saw, and the posterior amount of tissues removed. Meticulous hemostasis was obtained using 2-0 Vicryl stick ties and cautery and then a wound VAC was applied. The patient will be now taken to the operating room in a few days for washout and closure of the same amputation. MD LORETO Winters/INGRID , 05:02 PM , 05:35 PM
[2018-02-22 18:38] LABS: HEMATOCRIT 27.3 % (35.0-46.0); HEMOGLOBIN 8.8 GM/DL (11.6-15.3)
--- NOTE | 2018-02-22 19:04 | RADRPT ---
EXAM DATE/TIME: 02/22/2018 17:47 [facility] COMPARISON: No previous studies available for comparison. INDICATIONS : Ng tube placement. MEDICAL HISTORY : Hepatitis C. substance abuse SURGICAL HISTORY : Hysterectomy. ENCOUNTER: Subsequent ACUITY: 3 days PAIN SCORE: Non-responsive. LOCATION: Abdomen. FINDINGS: NGT tip in the stomach. Nonspecific bowel gas pattern without obstruction or free air. CONCLUSION: 1. NG tip in stomach. Kevin Wells MD on February 22, 2018 at 19:01 Board Certified Radiologist. This report was verified electronically.
[2018-02-22] MEDS: FAMOTIDINE 40 MG/5 ML LIQ 50 ML BTL NG SCH (20:59)
[2018-02-23] VITALS (25 sets, daily range): BP systolic 99–133; BP diastolic 73–110; PULSE 85–126; RESP 14–36; TEMP 97.5–99.1; O2SAT 96–100
[2018-02-23] MEDS: PROPOFOL 1000 MG/100 ML INJ 100 ML IV PRN ×2 (00:43→07:49)
[2018-02-23] MEDS: CLINDAMYCIN INJ 600 MG in SODIUM CHLORIDE 0.9% INJ 100 ML IV SCH ×5 (00:50→23:49)
[2018-02-23] MEDS: CEFEPIME INJ 2,000 MG in SODIUM CHLORIDE 0.9% INJ 100 ML IV SCH ×3 (01:43→17:36)
[2018-02-23] MEDS: CHLORHEXIDINE GLUCONATE 2 % 1 PACK (2 CLOTHS) TOP SCH (04:00)
--- NOTE | 2018-02-23 05:51 | RADRPT ---
EXAM DATE/TIME: 02/23/2018 02:40 [facility] COMPARISON: CHEST SINGLE AP, February 21, 2018, 14:09. INDICATIONS : Short of breath. MEDICAL HISTORY : Cirrhosis. Hepatitis C. Cervical ca, IV drug use SURGICAL HISTORY : Hysterectomy. ENCOUNTER: Subsequent ACUITY: 3 days PAIN SCORE: 0/10 LOCATION: Bilateral chest FINDINGS: Endotracheal tube is present good position. Nasogastric tube assess the stomach. Right central line s pratibha the SVC. Lungs are symmetrically aerated and grossly clear. Cardiac contours are stable and sati sfactory. CONCLUSION: Satisfactory chest appearance Francisco Shabazz MD on February 23, 2018 at 5:48 Board Certified Radiologist. This report was verified electronically.
[2018-02-23 05:55] LABS: AUTOMATED NEUTROPHIL # 1.5 TH/MM3 (1.8-7.7); BASOPHIL % 0.5 % (0.0-2.0); EOSINOPHIL # 0.1 TH/MM3 (0-0.4); EOSINOPHIL % 2.7 % (0.0-4.0); HEMATOCRIT 23.1 % (35.0-46.0); HEMOGLOBIN 7.6 GM/DL (11.6-15.3); LYMPH % 40.2 % (9.0-44.0); LYMPHOCYTE # 1.3 TH/MM3 (1.0-4.8); MEAN CELL VOLUME 75.4 FL (80.0-100.0); MEAN CORPUSCULAR HEMOGLOBIN 24.7 PG (27.0-34.0); MEAN CORPUSCULAR HGB CONC 32.8 % (32.0-36.0); MEAN PLATELET VOLUME 8.7 FL (7.0-11.0); MONO % 10.9 % (0.0-8.0); MONOCYTE # 0.4 TH/MM3 (0-0.9); NEUT % 45.7 % (16.0-70.0); PLATELET COUNT 159 TH/MM3 (150-450); RED BLOOD COUNT 3.06 MIL/MM3 (4.00-5.30); RED CELL DISTRIBUTION WIDTH 18.1 % (11.6-17.2); WHITE BLOOD COUNT 3.3 TH/MM3 (4.0-11.0)
[2018-02-23] MEDS: VANCOMYCIN INJ 750 MG in SODIUM CHLOR 0.9% 250 ML INJ 250 ML IV SCH ×2 (06:06→14:55)
[2018-02-23] MEDS: HEPARIN SODIUM - SQ 10,000 UNITS/ML VIAL SQ SCH ×2 (06:07→17:35)
[2018-02-23 06:25] LABS: BICARBONATE 23.1 MEQ/L (21.0-32.0); BLOOD UREA NITROGEN 9 MG/DL (7-18); CALCIUM 7.4 MG/DL (8.5-10.1); CHLORIDE 106 MEQ/L (98-107); CREATININE 0.27 MG/DL (0.50-1.00); GLOMERULAR FILTRATION RATE 273 ML/MIN (>89); GLUCOSE,RANDOM 64 MG/DL (74-106); MAGNESIUM 1.7 MG/DL (1.5-2.5); PHOSPHORUS 2.8 MG/DL (2.5-4.9); SODIUM (NA) 137 MEQ/L (136-145)
[2018-02-23 06:41] LABS: CALCIUM-PROTEIN CORRECTED 8.5 MG/DL (8.5-10.1); TOTAL PROTEIN 5.1 GM/DL (6.4-8.2)
[2018-02-23] MEDS: MIDAZOLAM 100 MG/100 ML INJ 100 ML IV PRN ×2 (07:19→19:26)
[2018-02-23] MEDS: NS + KCL 20 MEQ INJ 1,000 ML IV SCH ×2 (07:42→23:35)
[2018-02-23] MEDS: SODIUM CHLORIDE 0.9% FLUSH 10 ML FLUSH IV FLUSH SCH ×2 (07:48→21:20)
[2018-02-23] MEDS: DOCUSATE SODIUM 50 MG/SENNA 8.6 MG TAB PO SCH ×2 (07:48→21:00)
[2018-02-23] MEDS: FAMOTIDINE 40 MG/5 ML LIQ 50 ML BTL NG SCH ×2 (07:48→23:35)
[2018-02-23] MEDS: fentaNYL DRIP 250 ML IV PRN (07:49)
--- NOTE | 2018-02-23 08:40 | PD.POD ---
Subjective Remarks intubated sedated Past Med/Surg/Social History Social History Smoking Status: Current Every Day Smoker Objective Vital Signs Vital Signs Date Time Temp Pulse Resp B/P (MAP) Pulse Ox O2 Delivery O2 Flow Rate FiO2 02/23/18 07:45 100 30 02/23/18 06:00 93 02/23/18 04:36 100 30 02/23/18 04:00 85 02/23/18 04:00 98.6 85 15 111/85 (94) 100 02/23/18 04:00 30 02/23/18 02:00 90 02/23/18 01:16 100 30 02/23/18 00:00 97.7 101 14 114/89 (97) 100 02/23/18 00:00 101 02/23/18 00:00 30 02/22/18 23:57 100 02/22/18 22:15 100 30 02/22/18 20:00 106 02/22/18 20:00 30 02/22/18 20:00 98.4 106 15 117/90 (99) 100 02/22/18 19:40 100 30 02/22/18 16:30 98.6 121 14 123/92 (102) 95 02/22/18 16:20 96 30 02/22/18 16:00 30 02/22/18 14:45 100 100 02/22/18 14:00 111 02/22/18 12:34 106 14 107/81 (90) 100 02/22/18 12:29 97 30 02/22/18 12:00 99.3 107 17 106/83 (91) 100 02/22/18 12:00 107 02/22/18 12:00 30 02/22/18 11:30 107 15 111/83 (92) 100 02/22/18 11:00 107 15 110/85 (93) 100 02/22/18 10:40 100 30 02/22/18 10:30 108 15 109/82 (91) 100 02/22/18 10:00 108 02/22/18 10:00 108 35 107/76 (86) 100 02/22/18 09:30 109 17 103/77 (86) 100 02/22/18 09:00 108 17 110/81 (91) 100 Coded Allergies: codeine (Verified Allergy, Severe, 02/20/18) ketorolac (Verified Allergy, Severe, 02/20/18) penicillin G (Verified Allergy, Intermediate, Rash, 02/20/18) Medications and IVs Administered Medications Medications (Trade) Dose Ordered Sig/Malgorzata Route PRN Reason Start Time Stop Time Status Last Admin Dose Admin Potassium Chloride/Sodium Chloride 1,000 ml @ 100 mls/hr Q10H IV 02/20/18 14:57 02/23/18 07:42 Sodium Chloride (NS Flush) 2 ml BID IV FLUSH 02/20/18 21:00 02/23/18 07:48 Lorazepam (Ativan Inj) 2 mg Q4H PRN IV PUSH Agitation/Sedation 02/20/18 15:00 02/20/18 16:30 Heparin Sodium (Porcine) (Heparin Inj) 5,000 units Q12H SQ 02/20/18 16:00 02/23/18 06:07 Chlorhexidine Gluconate (Chlorhexidine 2% Cloth) 3 pack Taper DAILY@04 TOP 02/21/18 04:00 02/17/19 03:59 02/23/18 04:00 Senna/Docusate Sodium (Damari-Colace) 1 tab BID PO 02/21/18 09:00 02/23/18 07:48 Metoprolol Tartrate (Lopressor Inj) 5 mg Q6H PRN IV PUSH heart rate greater than 130/m 02/20/18 16:45 02/20/18 17:03 Chlorhexidine Gluconate (Peridex 0.12% Liq) 15 ml BID@08,20 MT 02/20/18 20:00 02/22/18 20:58 Midazolam HCl 100 ml @ 2 mls/hr TITRATE PRN IV SEDATION 02/20/18 19:15 02/23/18 07:19 Fentanyl Citrate 250 ml @ 5 mls/hr TITRATE PRN IV SEDATION 02/20/18 19:15 02/23/18 07:49 Propofol 100 ml @ 1.2 mls/hr TITRATE PRN IV SEDATION 02/20/18 21:00 02/23/18 07:49 Levofloxacin/ Dextrose 100 ml @ 100 mls/hr Q24H IV 02/21/18 14:00 02/22/18 13:09 Clindamycin Phosphate 600 mg/ Sodium Chloride 104 ml @ 208 mls/hr Q6H IV 02/21/18 18:00 02/23/18 06:06 Cefepime HCl 2000 mg/Sodium Chloride 100 ml @ 200 mls/hr Q8H IV 02/22/18 10:00 02/23/18 01:43 Vancomycin HCl 750 mg/Sodium Chloride 257.5 ml @ 250 mls/hr Q8H IV 02/22/18 14:00 02/23/18 06:06 Famotidine (Pepcid Liq) 20 mg BID NG 02/22/18 21:00 02/23/18 07:48 Artificial Tears (Tears Naturale Opth Soln) 1 drop Q4H PRN EACH EYE DRY EYE 02/22/18 13:00 02/23/18 07:47 Other Results Laboratory Tests Test 02/22/18 10:50 02/22/18 17:30 02/23/18 04:00 White Blood Count 3.8 TH/MM3 3.3 TH/MM3 Red Blood Count 3.63 MIL/MM3 3.06 MIL/MM3 Hemoglobin 8.8 GM/DL 8.8 GM/DL 7.6 GM/DL Hematocrit 27.1 % 27.3 % 23.1 % Mean Corpuscular Volume 74.6 FL 75.4 FL Mean Corpuscular Hemoglobin 24.2 PG 24.7 PG Mean Corpuscular Hemoglobin Concent 32.4 % 32.8 % Red Cell Distribution Width 18.4 % 18.1 % Platelet Count 166 TH/MM3 159 TH/MM3 Mean Platelet Volume 8.1 FL 8.7 FL Neutrophils (%) (Auto) 50.7 % 45.7 % Lymphocytes (%) (Auto) 36.5 % 40.2 % Monocytes (%) (Auto) 11.4 % 10.9 % Eosinophils (%) (Auto) 0.7 % 2.7 % Basophils (%) (Auto) 0.7 % 0.5 % Neutrophils # (Auto) 1.9 TH/MM3 1.5 TH/MM3 Lymphocytes # (Auto) 1.4 TH/MM3 1.3 TH/MM3 Monocytes # (Auto) 0.4 TH/MM3 0.4 TH/MM3 Eosinophils # (Auto) 0.0 TH/MM3 0.1 TH/MM3 Basophils # (Auto) 0.0 TH/MM3 0.0 TH/MM3 CBC Comment DIFF FINAL DIFF FINAL Differential Comment Laboratory Tests Test 02/21/18 13:31 02/22/18 10:50 02/23/18 04:00 Procalcitonin 1.80 ng/mL Blood Urea Nitrogen 12 MG/DL 9 MG/DL Creatinine 0.33 MG/DL 0.27 MG/DL Random Glucose 76 MG/DL 64 MG/DL Total Protein 5.4 GM/DL 5.1 GM/DL Albumin 1.7 GM/DL Calcium Level 7.7 MG/DL 7.4 MG/DL Phosphorus Level 2.4 MG/DL 2.8 MG/DL Magnesium Level 1.8 MG/DL 1.7 MG/DL Alkaline Phosphatase 93 U/L Aspartate Amino Transf (AST/SGOT) 60 U/L Alanine Aminotransferase (ALT/SGPT) 21 U/L Total Bilirubin 0.4 MG/DL Sodium Level 138 MEQ/L 137 MEQ/L Potassium Level 4.2 MEQ/L 4.0 MEQ/L Chloride Level 106 MEQ/L 106 MEQ/L Carbon Dioxide Level 23.9 MEQ/L 23.1 MEQ/L Anion Gap 8 MEQ/L 8 MEQ/L Estimat Glomerular Filtration Rate 216 ML/MIN 273 ML/MIN Protein Corrected Calcium 8.5 MG/DL Human Chorionic Gonadotropin, Quant LESS THAN 1 MIU/ML Microbiology Date/Time Source Procedure Growth Status 02/21/18 13:21 Blood Peripheral Aerobic Blood Culture - Preliminary NO GROWTH IN 1 DAY Resulted 02/21/18 13:21 Blood Peripheral Anaerobic Blood Culture - Preliminary NO GROWTH IN 1 DAY Resulted 02/21/18 13:11 Blood Peripheral Aerobic Blood Culture - Preliminary NO GROWTH IN 1 DAY Resulted 02/21/18 13:11 Blood Peripheral Anaerobic Blood Culture - Preliminary NO GROWTH IN 1 DAY Resulted 02/20/18 10:25 Blood Peripheral Aerobic Blood Culture - Preliminary NO GROWTH IN 2 DAYS Resulted 02/20/18 10:25 Blood Peripheral Anaerobic Blood Culture - Preliminary NO GROWTH IN 2 DAYS Resulted 02/20/18 10:15 Blood Peripheral Aerobic Blood Culture - Preliminary NO GROWTH IN 2 DAYS Resulted 02/20/18 10:15 Blood Peripheral Anaerobic Blood Culture - Preliminary NO GROWTH IN 2 DAYS Resulted 02/21/18 13:11 Sputum Endotracheal Gram Stain - Final Complete 02/21/18 13:11 Sputum Culture - Final Klebsiella Pneumoniae Complete 02/21/18 00:00 Wound Foot Gram Stain - Final Resulted 02/21/18 00:00 Wound Foot Wound Culture - Preliminary Resulted 02/21/18 00:00 Wound Foot Gram Stain - Final Resulted 02/21/18 00:00 Wound Culture - Preliminary Staphylococcus Aureus Resulted Physical Exam Remarks Left- wound vac intact, BKA Right LE: some decreas in edema, no obvious increase in redness beyond cellulitic lines, anterior austin posterior lateral ankle and heel eschar appear to be dry and more stable today foot is warm, pulses palpable, extensive muscle wasting noted of distal leg. Assessment & Plan A/P Left > Right Foot ankle leg infection, puncture wounds, ischemic changes/ Advanced, BL anterior knee/ patella early infection noted. BL hands, fingers with bullae as well as nose. Severe infection with advancing ischemic changes to left foot, Likely Necrotizing fasciitis- SP BKA 02/22 Right foot and ankle needs offloading boot- ordered from project technician. For now ordering betadine swab to eschars, reviewed with nursing. Hold on debridement for now. Hernan Ramos DPM Feb 23, 2018 08:40
--- NOTE | 2018-02-23 10:43 | HHI.IDPN ---
Subjective Subjective Remarks is a 42 y/o CF with PMHx significant for recurrent cellulitis, Hepatitis C treatment naive, IV drug abuse, reported history of Crohn's disease , COPD. Patient has had multiple hospitalizations most recently in Oct 2017 and 2017 for recurrent bilateral LE cellulitis. 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 Cryoglobulins were detected in low amounts and AMIE was positive. Patient received IV antibiotics and wound care and was discharged to follow up with in wound care clinic. Patient was discharged to infusion clinic to receive dose of Dalbavancin on 01/07 at that time her wounds her superficial fewer and not as many with less evidence of infection. To complicate matters patient does not have a home and her last year. She has been treated with steroids for her vasculitis related non infected ulcers in the past. The rest of the history was obtained by review of medical records. With this background patient was brought in by ambulance from a temporary jail/living facility where she is staying for evaluation of bilateral leg pain and altered mental status. One of the other residents became concerned about the patient today because of the way she was acting. They noticed several sores on her bilateral lower extremities. The patient admitted to others that she abused drugs a day prior to admission. Due to worsening mentation patient was intubated for airway protection. ICU course: Patient has high grade fevers and foot appeared to be worsening due to concern for Necrotizing fascitis a Surgery consult was placed. Podiatry evaluated patient and a stat Vascular consult to has been placed. Gen Surgery evaluated patient with me. The general opinion seems to be non salvageable left leg but await Vascular opinion. Currently not on pressors. Remains sedated. UO good. Skin lesions noted on bilateral hands on dorsal aspect with blisters. Also tip of nose appears necrotic with surrounding erythema. ID consulted for evaluation of sepsis, Mment of LLE wet septic gangrene, Right foot heel gangrene and bilateral LE cellulitis. Overnight events reviewed s/p Left BKA yday. No fevers No rash No diarrhea Not on pressors. Remains on vent. Antibiotics Cefepime IV Vanco IV Clinda Levaquin Lines Line sites with no e.o infection Past Medical History Past Medical History Crohn's disease per history Hepatitis C treatment melissa Recurrent cellulitis Past Surgical History Appendectomy Hysterectomy ? Some bowel surgery for Crohn's Allergies: Coded Allergies: codeine (Verified Allergy, Severe, 02/20/18) ketorolac (Verified Allergy, Severe, 02/20/18) penicillin G (Verified Allergy, Intermediate, Rash, 02/20/18) Objective . Vital Signs Date Time Temp Pulse Resp B/P (MAP) Pulse Ox O2 Delivery O2 Flow Rate FiO2 02/23/18 10:00 89 02/23/18 10:00 89 14 99/75 (83) 100 02/23/18 09:00 86 02/23/18 09:00 86 14 106/80 (89) 100 02/23/18 08:00 86 02/23/18 08:00 98.9 86 14 115/89 (98) 100 02/23/18 07:45 100 30 02/23/18 07:00 91 14 112/82 (92) 100 02/23/18 07:00 91 02/23/18 06:00 93 02/23/18 04:36 100 30 02/23/18 04:00 85 02/23/18 04:00 98.6 85 15 111/85 (94) 100 02/23/18 04:00 30 02/23/18 02:00 90 02/23/18 01:16 100 30 02/23/18 00:00 97.7 101 14 114/89 (97) 100 02/23/18 00:00 101 02/23/18 00:00 30 02/22/18 23:57 100 02/22/18 22:15 100 30 02/22/18 20:00 106 02/22/18 20:00 30 02/22/18 20:00 98.4 106 15 117/90 (99) 100 02/22/18 19:40 100 30 02/22/18 16:30 98.6 121 14 123/92 (102) 95 02/22/18 16:20 96 30 02/22/18 16:00 30 02/22/18 14:45 100 100 02/22/18 14:00 111 02/22/18 12:34 106 14 107/81 (90) 100 02/22/18 12:29 97 30 02/22/18 12:00 99.3 107 17 106/83 (91) 100 02/22/18 12:00 107 02/22/18 12:00 30 02/22/18 11:30 107 15 111/83 (92) 100 02/22/18 11:00 107 15 110/85 (93) 100 . Laboratory Tests Test 02/22/18 10:50 02/22/18 17:30 02/23/18 04:00 White Blood Count 3.8 TH/MM3 3.3 TH/MM3 Red Blood Count 3.63 MIL/MM3 3.06 MIL/MM3 Hemoglobin 8.8 GM/DL 8.8 GM/DL 7.6 GM/DL Hematocrit 27.1 % 27.3 % 23.1 % Mean Corpuscular Volume 74.6 FL 75.4 FL Mean Corpuscular Hemoglobin 24.2 PG 24.7 PG Mean Corpuscular Hemoglobin Concent 32.4 % 32.8 % Red Cell Distribution Width 18.4 % 18.1 % Platelet Count 166 TH/MM3 159 TH/MM3 Mean Platelet Volume 8.1 FL 8.7 FL Neutrophils (%) (Auto) 50.7 % 45.7 % Lymphocytes (%) (Auto) 36.5 % 40.2 % Monocytes (%) (Auto) 11.4 % 10.9 % Eosinophils (%) (Auto) 0.7 % 2.7 % Basophils (%) (Auto) 0.7 % 0.5 % Neutrophils # (Auto) 1.9 TH/MM3 1.5 TH/MM3 Lymphocytes # (Auto) 1.4 TH/MM3 1.3 TH/MM3 Monocytes # (Auto) 0.4 TH/MM3 0.4 TH/MM3 Eosinophils # (Auto) 0.0 TH/MM3 0.1 TH/MM3 Basophils # (Auto) 0.0 TH/MM3 0.0 TH/MM3 CBC Comment DIFF FINAL DIFF FINAL Differential Comment Laboratory Tests Test 02/21/18 13:31 02/22/18 10:50 02/23/18 04:00 Procalcitonin 1.80 ng/mL Blood Urea Nitrogen 12 MG/DL 9 MG/DL Creatinine 0.33 MG/DL 0.27 MG/DL Random Glucose 76 MG/DL 64 MG/DL Total Protein 5.4 GM/DL 5.1 GM/DL Albumin 1.7 GM/DL Calcium Level 7.7 MG/DL 7.4 MG/DL Phosphorus Level 2.4 MG/DL 2.8 MG/DL Magnesium Level 1.8 MG/DL 1.7 MG/DL Alkaline Phosphatase 93 U/L Aspartate Amino Transf (AST/SGOT) 60 U/L Alanine Aminotransferase (ALT/SGPT) 21 U/L Total Bilirubin 0.4 MG/DL Sodium Level 138 MEQ/L 137 MEQ/L Potassium Level 4.2 MEQ/L 4.0 MEQ/L Chloride Level 106 MEQ/L 106 MEQ/L Carbon Dioxide Level 23.9 MEQ/L 23.1 MEQ/L Anion Gap 8 MEQ/L 8 MEQ/L Estimat Glomerular Filtration Rate 216 ML/MIN 273 ML/MIN Protein Corrected Calcium 8.5 MG/DL Human Chorionic Gonadotropin, Quant LESS THAN 1 MIU/ML Microbiology Date/Time Source Procedure Growth Status 02/21/18 13:21 Blood Peripheral Aerobic Blood Culture - Preliminary NO GROWTH IN 1 DAY Resulted 02/21/18 13:21 Blood Peripheral Anaerobic Blood Culture - Preliminary NO GROWTH IN 1 DAY Resulted 02/21/18 13:11 Blood Peripheral Aerobic Blood Culture - Preliminary NO GROWTH IN 1 DAY Resulted 02/21/18 13:11 Blood Peripheral Anaerobic Blood Culture - Preliminary NO GROWTH IN 1 DAY Resulted 02/21/18 13:11 Sputum Endotracheal Gram Stain - Final Complete 02/21/18 13:11 Sputum Culture - Final Klebsiella Pneumoniae Complete 02/21/18 00:00 Wound Foot Gram Stain - Final Complete 02/21/18 00:00 Wound Culture - Final Staphylococcus Aureus Complete 02/21/18 00:00 Wound Foot Gram Stain - Final Complete 02/21/18 00:00 Wound Culture - Final Staphylococcus Aureus Complete Imaging Last Impressions Chest X-Ray 02/23/18 0600 Signed Impressions: Service Date/Time: Friday, February 23, 2018 02:40 - CONCLUSION: Satisfactory chest appearance Francisco Shabazz MD Abdomen X-Ray 02/22/18 0000 Signed Impressions: Service Date/Time: Thursday, February 22, 2018 17:47 - CONCLUSION: 1. NG tip in stomach. Kevin Wells MD Lower Extremity CT 02/21/18 0000 Signed Impressions: Service Date/Time: Wednesday, February 21, 2018 17:58 - CONCLUSION: 1. Subcutaneous edema in the right lower extremity as above. No discrete abscess. No air locules to suggest gas gangrene. Kevin Wells MD Tibia/Fibula X-Ray 02/20/18 0000 Signed Impressions: Service Date/Time: Tuesday, February 20, 2018 11:01 - CONCLUSION: Soft tissue swelling and irregularity with no radiopaque foreign body. Balaji Zimmerman MD Head CT 02/20/18 0000 Signed Impressions: Service Date/Time: Tuesday, February 20, 2018 11:49 - CONCLUSION: Suboptimal exam secondary to streak and motion artifact with no evidence of hemorrhage or mass effect. Balaji Zimmerman MD Foot X-Ray 02/20/18 0000 Signed Impressions: Service Date/Time: Tuesday, February 20, 2018 11:00 - CONCLUSION: Soft tissue swelling with no radiopaque foreign body or underlying bony abnormality. Balaji Zimmerman MD Physical Exam GENERAL: This is a well-nourished, well-developed patient, in no apparent distress. SKIN: No rashes, ecchymoses or lesions. Cool and dry. HEAD: Atraumatic. Normocephalic. No temporal or scalp tenderness. EYES: Pupils equal round and reactive. Extraocular motions intact. No scleral icterus. No injection or drainage. ENT: Nose without bleeding, purulent drainage or septal hematoma. Throat without erythema, tonsillar hypertrophy or exudate. Uvula midline. Airway patent. NECK: Trachea midline. No JVD or lymphadenopathy. Supple, nontender, no meningeal signs. CARDIOVASCULAR: Regular rate and rhythm without murmurs, gallops, or rubs. RESPIRATORY: Clear to auscultation. Breath sounds equal bilaterally. No wheezes , rales, or rhonchi. GASTROINTESTINAL: Abdomen soft, non-tender, nondistended. MUSCULOSKELETAL: Extremities without clubbing, cyanosis, or edema. NEUROLOGICAL: Sedated Psych cooperative IV line sites with no e.o infection. Assessment & Plan Remarks Sepsis present on admission Left leg and foot with cellulitis, abscess and gangrene. s/p BKA. Right foot heel with cellulitis and gangrene Bilateral Hand cellulitis with blisters. Bilateral LE cellulitis with blisters. Clinically looks less likely to be Necrotizing fascitis and no gas on imaging. Does not appear to be spreading beyond margins demarcated with marker. Hepatitis C Cryoglobulinemia Vasculitis : AMIE positive. IVDA Acute resp failure on vent. Penicillin allergy: rash. has tolerated Cephalosporins in past. Recs: Continue Clindamycin IV Continue Vanco IV (target 15-20) Continue Cefepime IV DC Levaquin Follow cultures to adjust antibiotics. follow clinically if areas on face and hands worsen consider hand surgery consult and plastics for nose. Addendum at 5:26 pm Add Ancef IV for better MSSA coverage. Zora Pompa MD Feb 23, 2018 10:43
[2018-02-23] MEDS: CHLORHEXIDINE 0.12% (ORAL KIT) 15 ML CUP MT SCH ×2 (11:33→21:20)
[2018-02-23] MEDS ORDERED: PHARMACY ORDERED LAB ONE (13:45)
--- NOTE | 2018-02-23 14:18 | PD.CAR.PN ---
CVT Progress Note Subjective/Hospital Course: 42-year-old female intubated ventilated and sedated Patient is apparently a IV drug abuser was brought in hypotensive and septic to our institution is currently under care Podiatry was consulted for evaluation of the feet and spoke with Dr. Ramos about it On exam patient has palpable bilateral femoral pulses and palpable popliteal pulses on the right side posterior tibial is palpable dorsalis pedis is by Doppler patient has multiple ulcers and necrotic areas over the right foot. On the left foot I can Doppler posterior tibial pulse and dorsalis pedis pulse but the entire foot is at this point involved in gangrene which has started from the skin down and that this time the entire foot is essentially black Fluid covered bulla and gangrenous soft tissue is going all the way down to the tendons and gangrene involves entire foot from the metatarsals, over the metatarsals to the tarsals and to the ankle and then over to the heel. Toes are spared. This is a result of multiple injections in this area and gangrenous spread. This patient clearly has inflow vessels which are open but she is perfusing a devitalized foot She needs immediate amputation patient will undergo two-stage amputation in the guillotine fashion with secondary closure in a few days. I fully agree with Dr. 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 At the same time I will debride few of these necrotic areas It should be noted that patient's blood supply to the foot was severely compromised and that vessels below the level of the knee look really diseased fibrotic and the only true viable vessel is anterior tibial Objective: Vital Signs Date Time Temp Pulse Resp B/P (MAP) Pulse Ox O2 Delivery O2 Flow Rate FiO2 02/23/18 12:20 30 02/23/18 11:11 100 30 02/23/18 10:00 89 02/23/18 10:00 89 14 99/75 (83) 100 02/23/18 09:00 86 02/23/18 09:00 86 14 106/80 (89) 100 02/23/18 08:00 86 02/23/18 08:00 98.9 86 14 115/89 (98) 100 02/23/18 07:45 100 30 02/23/18 07:00 91 14 112/82 (92) 100 02/23/18 07:00 91 02/23/18 06:00 93 02/23/18 04:36 100 30 02/23/18 04:00 85 02/23/18 04:00 98.6 85 15 111/85 (94) 100 02/23/18 04:00 30 02/23/18 02:00 90 02/23/18 01:16 100 30 02/23/18 00:00 97.7 101 14 114/89 (97) 100 02/23/18 00:00 101 02/23/18 00:00 30 02/22/18 23:57 100 02/22/18 22:15 100 30 02/22/18 20:00 106 02/22/18 20:00 30 02/22/18 20:00 98.4 106 15 117/90 (99) 100 02/22/18 19:40 100 30 02/22/18 16:30 98.6 121 14 123/92 (102) 95 02/22/18 16:20 96 30 02/22/18 16:00 30 02/22/18 14:45 100 100 Labs: Laboratory Tests Test 02/23/18 04:00 White Blood Count 3.3 TH/MM3 (4.0-11.0) Red Blood Count 3.06 MIL/MM3 (4.00-5.30) Hemoglobin 7.6 GM/DL (11.6-15.3) Hematocrit 23.1 % (35.0-46.0) Mean Corpuscular Volume 75.4 FL (80.0-100.0) Mean Corpuscular Hemoglobin 24.7 PG (27.0-34.0) Mean Corpuscular Hemoglobin Concent 32.8 % (32.0-36.0) Red Cell Distribution Width 18.1 % (11.6-17.2) Platelet Count 159 TH/MM3 (150-450) Mean Platelet Volume 8.7 FL (7.0-11.0) Neutrophils (%) (Auto) 45.7 % (16.0-70.0) Lymphocytes (%) (Auto) 40.2 % (9.0-44.0) Monocytes (%) (Auto) 10.9 % (0.0-8.0) Eosinophils (%) (Auto) 2.7 % (0.0-4.0) Basophils (%) (Auto) 0.5 % (0.0-2.0) Neutrophils # (Auto) 1.5 TH/MM3 (1.8-7.7) Lymphocytes # (Auto) 1.3 TH/MM3 (1.0-4.8) Monocytes # (Auto) 0.4 TH/MM3 (0-0.9) Eosinophils # (Auto) 0.1 TH/MM3 (0-0.4) Basophils # (Auto) 0.0 TH/MM3 (0-0.2) CBC Comment DIFF FINAL Differential Comment Blood Urea Nitrogen 9 MG/DL (7-18) Creatinine 0.27 MG/DL (0.50-1.00) Random Glucose 64 MG/DL (74-106) Total Protein 5.1 GM/DL (6.4-8.2) Calcium Level 7.4 MG/DL (8.5-10.1) Phosphorus Level 2.8 MG/DL (2.5-4.9) Magnesium Level 1.7 MG/DL (1.5-2.5) Sodium Level 137 MEQ/L (136-145) Potassium Level 4.0 MEQ/L (3.5-5.1) Chloride Level 106 MEQ/L (98-107) Carbon Dioxide Level 23.1 MEQ/L (21.0-32.0) Anion Gap 8 MEQ/L (5-15) Estimat Glomerular Filtration Rate 273 ML/MIN (>89) Protein Corrected Calcium 8.5 MG/DL (8.5-10.1) Human Chorionic Gonadotropin, Quant LESS THAN 1 MIU/ML (0-5) Result Diagram: 02/23/1839902/23/18399 David Mays MD Feb 23, 2018 14:18
--- NOTE | 2018-02-23 15:20 | HHI.CCPN ---
Subjective Remarks/Hospital Course 02/20: 42-year-old female with history of polysubstance abuse, IVDU, brought in by ambulance from a temporary long-term/living facility where she is staying for evaluation of bilateral leg pain and altered mental status. One of the other residents became concerned about the patient today because of the way she was acting. They noticed several sores on her bilateral lower extremities. The patient admits to IV drug abuse, last use was yesterday. She complains of pain in her bilateral legs, however is otherwise a very poor historian writhing in bed moaning in pain. Chart review shows that the patient has been admitted for this in the past. 02/21: Sedated, easily arousable, orally intubated on mechanical ventilation. Spiked a temperature 101.5 for which Arellano cultures ordered and we are initiating empiric vancomycin and Levaquin. 2-D echo ordered to evaluate heart valves. She had a normal white count this morning. Wounds or bilateral lower extremities unchanged since admission and appeared to be chronic. 02/22: T-max 99.4. Patient underwent TTE this a.m., results pending. Consultation and evaluation performed by podiatry this a.m., vascular surgery urgently consulted. Plan scheduling for left BKA today. Multiple punctate lesions, possible emboli type wounds bilateral upper and lower extremities, as well as left nare. Patient remains sedated and intubated on fentanyl and Versed infusions currently. 02/23: CPAP trials initiated today, patient tolerated for approximately 30 minutes. Tube feeds initiated Jevity 1.5. Wound VAC to left BKA with minimal drainage. Patient to receive 2 units PRBCs per vascular surgery. Objective Vital Signs Date Time Temp Pulse Resp B/P (MAP) Pulse Ox O2 Delivery O2 Flow Rate FiO2 02/23/18 14:00 109 02/23/18 12:20 30 02/23/18 11:11 100 02/23/18 10:00 14 99/75 (83) 02/23/18 08:00 98.9 02/20/18 16:43 Room Air Intake and Output 02/23/18 02/23/18 02/23/18 07:59 15:59 23:59 Intake Total 1112 ml Output Total 750 ml Balance 362 ml Result Diagram: 02/23/18 0400 02/23/18 0400 Other Results Microbiology Date/Time Source Procedure Growth Status 02/21/18 13:11 Sputum Endotracheal Gram Stain - Final Complete 02/21/18 13:11 Sputum Culture - Final Klebsiella Pneumoniae Complete 02/21/18 00:00 Wound Foot Gram Stain - Final Complete 02/21/18 00:00 Wound Culture - Final Staphylococcus Aureus Complete 02/21/18 00:00 Wound Foot Gram Stain - Final Complete 02/21/18 00:00 Wound Culture - Final Staphylococcus Aureus Complete Imaging Last Impressions Chest X-Ray 02/23/18 0600 Signed Impressions: Service Date/Time: Friday, February 23, 2018 02:40 - CONCLUSION: Satisfactory chest appearance Francisco Shabazz MD Abdomen X-Ray 02/22/18 0000 Signed Impressions: Service Date/Time: Thursday, February 22, 2018 17:47 - CONCLUSION: 1. NG tip in stomach. Kevin Wells MD Lower Extremity CT 02/21/18 0000 Signed Impressions: Service Date/Time: Wednesday, February 21, 2018 17:58 - CONCLUSION: 1. Subcutaneous edema in the right lower extremity as above. No discrete abscess. No air locules to suggest gas gangrene. Kevin Wells MD Tibia/Fibula X-Ray 02/20/18 0000 Signed Impressions: Service Date/Time: Tuesday, February 20, 2018 11:01 - CONCLUSION: Soft tissue swelling and irregularity with no radiopaque foreign body. Balaji Zimmerman MD Head CT 02/20/18 0000 Signed Impressions: Service Date/Time: Tuesday, February 20, 2018 11:49 - CONCLUSION: Suboptimal exam secondary to streak and motion artifact with no evidence of hemorrhage or mass effect. Balaji Zimmerman MD Foot X-Ray 02/20/18 0000 Signed Impressions: Service Date/Time: Tuesday, February 20, 2018 11:00 - CONCLUSION: Soft tissue swelling with no radiopaque foreign body or underlying bony abnormality. Balaji Zimmerman MD Last Impressions Chest X-Ray 02/20/18 1010 Signed Impressions: Service Date/Time: Tuesday, February 20, 2018 10:57 - CONCLUSION: No acute disease. Balaji Zimmerman MD Tibia/Fibula X-Ray 02/20/18 0000 Signed Impressions: Service Date/Time: Tuesday, February 20, 2018 11:01 - CONCLUSION: Soft tissue swelling and irregularity with no radiopaque foreign body. Balaji Zimmerman MD Head CT 02/20/18 0000 Signed Impressions: Service Date/Time: Tuesday, February 20, 2018 11:49 - CONCLUSION: Suboptimal exam secondary to streak and motion artifact with no evidence of hemorrhage or mass effect. Balaji Zimmerman MD Foot X-Ray 02/20/18 0000 Signed Impressions: Service Date/Time: Tuesday, February 20, 2018 11:00 - CONCLUSION: Soft tissue swelling with no radiopaque foreign body or underlying bony abnormality. Balaji Zimmerman MD Procedures 02/22 left BKA Objective Remarks Physical exam GENERAL: Well-developed, cachectic appearing, orally intubated on mechanical ventilation, lying in bed. SKIN: Several wounds/ulcerations to bilateral lower extremities with surrounding ecchymosis, no purulent drainage, no crepitus, no fluctuance or induration. HEAD: Atraumatic. Normocephalic. EYES: Pupils equal and round, 3 mm, reactive to light. ENT: Mucous membranes pink and dry. NECK: Trachea midline. No JVD. No nuchal rigidity. CARDIOVASCULAR: S1-S2 regular, no gallop or murmur. No murmur appreciated. Bilateral dorsalis pedis pulses are brisk and equal. RESPIRATORY: Orally intubated on mechanical ventilation. Clear to auscultation. Breath sounds equal bilaterally. GASTROINTESTINAL: Abdomen soft, non-tender, nondistended. MUSCULOSKELETAL: Skin exam as above with moderate edema to left foot and ankle. Multiple large blood blistering bilateral left and right lower extremities,L> R. Multiple petechiae bilateral hands with blistering NEUROLOGICAL: Sedated, arousable, orally intubated on mechanical ventilation, pupils 3 mm bilaterally reactive, follows commands on lightening sedation. No obvious cranial nerve deficits. Motor grossly within normal limits. PSYCHIATRIC: Unable to assess. A/P Assessment and Plan Assessment 42 year old female: Encephalopathy secondary to substance abuse Hyponatremia Polysubstance abuse positive for amphetamines, cocaine, benzodiazepine, opioids Acute respiratory failure on mechanical ventilation Fever with suspected sepsis Multiple leg ulcers/wounds which appeared chronic History of IV drug use Sinus Tachycardia Uncontrolled hypertension Hypoalbuminemia Malnutrition Postoperative pain Plan: Neuro: Sedation with Midazolam/ Propofol/fentanyl gtt. Daily sedation vacation. Ativan when necessary for agitation. Will use Precedex if needed to control agitation/withdrawal symptoms. Follow neuro status. [place] every 4 hours as needed for pain control status post BKA S/P L BKA POD #1 Cardiovascular: IV hydration. Received 2 L normal saline earlier. Lopressor 2.5 mg IV every 6 hourly for tachycardia with labetalol 10 mg IV every 4 hourly when necessary for hypertension. Discontinue Continue normal saline with 20 of K at 100 cc/hr. 02/22 Follow-up echo report- 2-D echo will be obtained to evaluate heart valves. Obtain EKG Pulmonary: Mechanical ventilation Bronchodilators when necessary Maintain O2 sat greater than 92% Begin CPAP trials GI/liver: Initiate tube feeds. Dietary consult for tubefeeds Jevity 1.5 with a goal rate of 45 cc/hr Renal/: IV hydration, strict intake output, monitor and replete elect lites, follow BUN/ creatinine. Continue normal saline for hyponatremia. 02/23 discontinue upon toleration of tube feed ID: Patient had a normal WBC however spiked fever 02/21. She has chronic leg wounds. Repeat chest x-ray and arellano culture and initiate empiric antibiotics with IV vancomycin and Levaquin. Check pro calcitonin. Wound care consulted for lower extremity leg wounds. Endocrine: Watch for hyperglycemia, SSI for glycemic control if needed. Heme: Follow CBC. Type and screen placed 2 units packed red blood cells on hold for surgery. Msk: Vascular surgery following , S/P left BKA. Podiatry consulted-possible debridement right heel in the near future. Prophylaxis:SQ Heparin placed on hold for impending surgery, SCDs for DVT prophylaxis deferred to vascular surgery my billing statement This patient remains critically ill with one or more organ systems which are or may become a threat to life. I have spent in excess of 30 minutes discontinuously in the care and management of this patient. This time is exclusive of procedures, and includes, but is not limited to, evaluation of the patient, review of the medical record, discussions with family, consultants, nursing staff, or respiratory therapy, and documentation in the medical record. D/W HYDRAULIC OIL TOOL OPERATOR (Emilee), and patient's mother at bedside Physician Vandana Ty MD Feb 23, 2018 15:20
[2018-02-23] MEDS: CEFAZOLIN INJ 2,000 MG in SODIUM CHLORIDE 0.9% INJ 100 ML IV SCH (20:00)
[2018-02-23] MEDS: VANCOMYCIN 1,000 MG/NS 250 ML IV SCH ×2 (22:11)
[2018-02-24] VITALS (19 sets, daily range): BP systolic 104–148; BP diastolic 80–110; PULSE 94–119; RESP 14–21; TEMP 98.2–100.3; O2SAT 97–100
[2018-02-24] MEDS: fentaNYL DRIP 250 ML IV PRN ×3 (00:17→10:57)
[2018-02-24] MEDS: CEFEPIME INJ 2,000 MG in SODIUM CHLORIDE 0.9% INJ 100 ML IV SCH ×3 (01:47→17:28)
[2018-02-24] MEDS: CHLORHEXIDINE GLUCONATE 2 % 1 PACK (2 CLOTHS) TOP SCH (04:00)
[2018-02-24] MEDS: CEFAZOLIN INJ 2,000 MG in SODIUM CHLORIDE 0.9% INJ 100 ML IV SCH ×3 (04:00→21:49)
[2018-02-24] MEDS: HEPARIN SODIUM - SQ 10,000 UNITS/ML VIAL SQ SCH ×2 (04:02→17:28)
[2018-02-24] MEDS: CLINDAMYCIN INJ 600 MG in SODIUM CHLORIDE 0.9% INJ 100 ML IV SCH ×4 (04:48→23:41)
[2018-02-24 05:07] LABS: BASOPHIL % 0.7 % (0.0-2.0); EOSINOPHIL # 0.2 TH/MM3 (0-0.4); EOSINOPHIL % 3.8 % (0.0-4.0); HEMATOCRIT 33.5 % (35.0-46.0); HEMOGLOBIN 11.2 GM/DL (11.6-15.3); LYMPH % 28.4 % (9.0-44.0); LYMPHOCYTE # 1.5 TH/MM3 (1.0-4.8); MEAN CELL VOLUME 76.9 FL (80.0-100.0); MEAN CORPUSCULAR HEMOGLOBIN 25.7 PG (27.0-34.0); MEAN CORPUSCULAR HGB CONC 33.4 % (32.0-36.0); MEAN PLATELET VOLUME 8.4 FL (7.0-11.0); MONO % 8.2 % (0.0-8.0); MONOCYTE # 0.4 TH/MM3 (0-0.9); NEUT % 58.9 % (16.0-70.0); PLATELET COUNT 181 TH/MM3 (150-450); RED BLOOD COUNT 4.36 MIL/MM3 (4.00-5.30); RED CELL DISTRIBUTION WIDTH 17.5 % (11.6-17.2); WHITE BLOOD COUNT 5.1 TH/MM3 (4.0-11.0)
[2018-02-24 05:22] LABS: BICARBONATE 24.3 MEQ/L (21.0-32.0); CALCIUM 7.4 MG/DL (8.5-10.1); CREATININE 0.31 MG/DL (0.50-1.00); MAGNESIUM 1.6 MG/DL (1.5-2.5)
[2018-02-24] MEDS: MIDAZOLAM 100 MG/100 ML INJ 100 ML IV PRN ×2 (05:22→15:43)
[2018-02-24] MEDS: VANCOMYCIN 1,000 MG/NS 250 ML IV SCH ×6 (05:22→22:22)
[2018-02-24 05:36] LABS: CALCIUM-PROTEIN CORRECTED 8.4 MG/DL (8.5-10.1); TOTAL PROTEIN 5.3 GM/DL (6.4-8.2)
--- NOTE | 2018-02-24 06:18 | RADRPT ---
EXAM DATE/TIME: 02/24/2018 03:43 [facility] COMPARISON: CHEST SINGLE AP, February 23, 2018, 2:40. INDICATIONS : Shortness of breath, possible pulmonary disease. MEDICAL HISTORY : Cirrhosis. Hepatitis C. cervical ca SURGICAL HISTORY : Hysterectomy. ENCOUNTER: Subsequent ACUITY: 4 - 6 days PAIN SCORE: Non-responsive. LOCATION: Bilateral chest FINDINGS: Endotracheal tube, nasogastric tube and right neck central line are stable. Lungs are symmetrically a erated and grossly clear. Cardiac contours stable. CONCLUSION: Stable chest appearance Francisco Shabazz MD on February 24, 2018 at 6:16 Board Certified Radiologist. This report was verified electronically.
[2018-02-24] MEDS: CHLORHEXIDINE 0.12% (ORAL KIT) 15 ML CUP MT SCH ×2 (08:00→21:49)
[2018-02-24] MEDS: SODIUM CHLORIDE 0.9% FLUSH 10 ML FLUSH IV FLUSH SCH ×2 (09:00→21:50)
[2018-02-24] MEDS: NS + KCL 20 MEQ INJ 1,000 ML IV SCH ×2 (09:25→19:10)
[2018-02-24] MEDS: PROPOFOL 1000 MG/100 ML INJ 100 ML IV PRN ×2 (09:39→15:43)
[2018-02-24] MEDS: DOCUSATE SODIUM 50 MG/SENNA 8.6 MG TAB PO SCH ×2 (09:40→22:20)
[2018-02-24] MEDS: FAMOTIDINE 40 MG/5 ML LIQ 50 ML BTL NG SCH ×2 (09:40→22:21)
--- NOTE | 2018-02-24 11:48 | HHI.IDPN ---
Subjective Subjective Remarks is a 42 y/o CF with PMHx significant for recurrent cellulitis, Hepatitis C treatment naive, IV drug abuse, reported history of Crohn's disease , COPD. Patient has had multiple hospitalizations most recently in Oct 2017 and 2017 for recurrent bilateral LE cellulitis. 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 Cryoglobulins were detected in low amounts and AMIE was positive. Patient received IV antibiotics and wound care and was discharged to follow up with in wound care clinic. Patient was discharged to infusion clinic to receive dose of Dalbavancin on 01/07 at that time her wounds her superficial fewer and not as many with less evidence of infection. To complicate matters patient does not have a home and her last year. She has been treated with steroids for her vasculitis related non infected ulcers in the past. The rest of the history was obtained by review of medical records. With this background patient was brought in by ambulance from a temporary halfway/living facility where she is staying for evaluation of bilateral leg pain and altered mental status. One of the other residents became concerned about the patient today because of the way she was acting. They noticed several sores on her bilateral lower extremities. The patient admitted to others that she abused drugs a day prior to admission. Due to worsening mentation patient was intubated for airway protection. ICU course: Patient has high grade fevers and foot appeared to be worsening due to concern for Necrotizing fascitis a Surgery consult was placed. Podiatry evaluated patient and a stat Vascular consult to has been placed. Gen Surgery evaluated patient with me. The general opinion seems to be non salvageable left leg but await Vascular opinion. Currently not on pressors. Remains sedated. UO good. Skin lesions noted on bilateral hands on dorsal aspect with blisters. Also tip of nose appears necrotic with surrounding erythema. ID consulted for evaluation of sepsis, Mment of LLE wet septic gangrene, Right foot heel gangrene and bilateral LE cellulitis. Overnight events reviewed s/p Left BKA Left limb no further new areas on skin noted. Chronic brown discoloration visible above wound vac area. Right foot with area of erythema beyond marking noted. No fevers No rash No diarrhea Not on pressors. Remains on vent. Antibiotics Cefepime IV Vanco IV Clinda Levaquin Lines Line sites with no e.o infection Past Medical History Past Medical History Crohn's disease per history Hepatitis C treatment melissa Recurrent cellulitis Past Surgical History Appendectomy Hysterectomy ? Some bowel surgery for Crohn's Allergies: Coded Allergies: codeine (Verified Allergy, Severe, 02/20/18) ketorolac (Verified Allergy, Severe, 02/20/18) penicillin G (Verified Allergy, Intermediate, Rash, 02/20/18) Objective . Vital Signs Date Time Temp Pulse Resp B/P (MAP) Pulse Ox O2 Delivery O2 Flow Rate FiO2 02/24/18 11:41 97 30 02/24/18 07:49 100 30 02/24/18 06:00 100 02/24/18 04:36 100 30 02/24/18 04:00 106 02/24/18 04:00 98.3 106 14 130/102 (111) 100 02/24/18 04:00 30 02/24/18 02:00 108 02/24/18 00:05 100 30 02/24/18 00:00 98.2 117 14 136/99 (111) 100 02/24/18 00:00 30 02/24/18 00:00 117 02/23/18 22:00 107 02/23/18 21:04 99 30 02/23/18 20:00 30 02/23/18 20:00 104 02/23/18 20:00 98.7 104 15 110/79 (89) 96 02/23/18 17:00 103 15 124/93 (103) 100 02/23/18 16:00 99.1 103 16 119/85 (96) 100 02/23/18 16:00 30 02/23/18 15:12 100 30 02/23/18 15:00 108 16 129/96 (107) 100 02/23/18 14:00 109 02/23/18 14:00 109 16 128/92 (104) 96 02/23/18 13:01 117 20 133/110 (118) 100 02/23/18 12:20 30 02/23/18 12:20 97.6 126 36 97 02/23/18 12:05 99/75 02/23/18 12:05 97.5 91 14 100 02/23/18 12:00 99.1 90 15 99/75 (83) 100 02/23/18 12:00 90 02/23/18 12:00 30 . Laboratory Tests Test 02/22/18 17:30 02/23/18 04:00 02/24/18 04:00 Hemoglobin 8.8 GM/DL 7.6 GM/DL 11.2 GM/DL Hematocrit 27.3 % 23.1 % 33.5 % White Blood Count 3.3 TH/MM3 5.1 TH/MM3 Red Blood Count 3.06 MIL/MM3 4.36 MIL/MM3 Mean Corpuscular Volume 75.4 FL 76.9 FL Mean Corpuscular Hemoglobin 24.7 PG 25.7 PG Mean Corpuscular Hemoglobin Concent 32.8 % 33.4 % Red Cell Distribution Width 18.1 % 17.5 % Platelet Count 159 TH/MM3 181 TH/MM3 Mean Platelet Volume 8.7 FL 8.4 FL Neutrophils (%) (Auto) 45.7 % 58.9 % Lymphocytes (%) (Auto) 40.2 % 28.4 % Monocytes (%) (Auto) 10.9 % 8.2 % Eosinophils (%) (Auto) 2.7 % 3.8 % Basophils (%) (Auto) 0.5 % 0.7 % Neutrophils # (Auto) 1.5 TH/MM3 3.0 TH/MM3 Lymphocytes # (Auto) 1.3 TH/MM3 1.5 TH/MM3 Monocytes # (Auto) 0.4 TH/MM3 0.4 TH/MM3 Eosinophils # (Auto) 0.1 TH/MM3 0.2 TH/MM3 Basophils # (Auto) 0.0 TH/MM3 0.0 TH/MM3 CBC Comment DIFF FINAL DIFF FINAL Differential Comment Laboratory Tests Test 02/23/18 04:00 02/24/18 04:00 Blood Urea Nitrogen 9 MG/DL 4 MG/DL Creatinine 0.27 MG/DL 0.31 MG/DL Random Glucose 64 MG/DL 85 MG/DL Total Protein 5.1 GM/DL 5.3 GM/DL Calcium Level 7.4 MG/DL 7.4 MG/DL Phosphorus Level 2.8 MG/DL Magnesium Level 1.7 MG/DL 1.6 MG/DL Sodium Level 137 MEQ/L 134 MEQ/L Potassium Level 4.0 MEQ/L 4.2 MEQ/L Chloride Level 106 MEQ/L 101 MEQ/L Carbon Dioxide Level 23.1 MEQ/L 24.3 MEQ/L Anion Gap 8 MEQ/L 9 MEQ/L Estimat Glomerular Filtration Rate 273 ML/MIN 233 ML/MIN Protein Corrected Calcium 8.5 MG/DL 8.4 MG/DL Human Chorionic Gonadotropin, Quant LESS THAN 1 MIU/ML Microbiology Date/Time Source Procedure Growth Status 02/21/18 13:21 Blood Peripheral Aerobic Blood Culture - Preliminary NO GROWTH IN 3 DAYS Resulted 02/21/18 13:21 Blood Peripheral Anaerobic Blood Culture - Preliminary NO GROWTH IN 3 DAYS Resulted 02/21/18 13:11 Blood Peripheral Aerobic Blood Culture - Preliminary NO GROWTH IN 3 DAYS Resulted 02/21/18 13:11 Blood Peripheral Anaerobic Blood Culture - Preliminary NO GROWTH IN 3 DAYS Resulted 02/21/18 13:11 Sputum Endotracheal Gram Stain - Final Complete 02/21/18 13:11 Sputum Culture - Final Klebsiella Pneumoniae Complete Imaging Last Impressions Chest X-Ray 02/23/18 0600 Signed Impressions: Service Date/Time: Friday, February 23, 2018 02:40 - CONCLUSION: Satisfactory chest appearance Francisco Shabazz MD Abdomen X-Ray 02/22/18 0000 Signed Impressions: Service Date/Time: Thursday, February 22, 2018 17:47 - CONCLUSION: 1. NG tip in stomach. Kevin Wells MD Lower Extremity CT 02/21/18 0000 Signed Impressions: Service Date/Time: Wednesday, February 21, 2018 17:58 - CONCLUSION: 1. Subcutaneous edema in the right lower extremity as above. No discrete abscess. No air locules to suggest gas gangrene. Kevin Wells MD Tibia/Fibula X-Ray 02/20/18 0000 Signed Impressions: Service Date/Time: Tuesday, February 20, 2018 11:01 - CONCLUSION: Soft tissue swelling and irregularity with no radiopaque foreign body. Balaji Zimmerman MD Head CT 02/20/18 0000 Signed Impressions: Service Date/Time: Tuesday, February 20, 2018 11:49 - CONCLUSION: Suboptimal exam secondary to streak and motion artifact with no evidence of hemorrhage or mass effect. Balaji Zimmerman MD Foot X-Ray 02/20/18 0000 Signed Impressions: Service Date/Time: Tuesday, February 20, 2018 11:00 - CONCLUSION: Soft tissue swelling with no radiopaque foreign body or underlying bony abnormality. Balaji Zimmerman MD Physical Exam GENERAL: This is a well-nourished, well-developed patient, in no apparent distress. SKIN: No rashes, ecchymoses or lesions. Cool and dry. HEAD: Atraumatic. Normocephalic. No temporal or scalp tenderness. EYES: Pupils equal round and reactive. No scleral icterus. No injection or drainage. ENT: Intubated. NECK: Trachea midline. Supple, nontender, no meningeal signs. CARDIOVASCULAR: Regular rate and rhythm without murmurs, gallops, or rubs. RESPIRATORY: Clear to auscultation. Breath sounds equal bilaterally. No wheezes , rales, or rhonchi. GASTROINTESTINAL: Abdomen soft, non-tender, nondistended. MUSCULOSKELETAL: Left limb no further new areas on skin noted. Chronic brown discoloration visible above wound vac area. Right foot with area of erythema beyond marking noted. UE hand dorsum with areas of blackening and erythema and blisters noted. Tip of nose with area of blackening noted. NEUROLOGICAL: Sedated Psych cooperative IV line sites with no e.o infection. Assessment & Plan Remarks Sepsis present on admission Left leg and foot with cellulitis, abscess and gangrene. s/p BKA. Right foot heel with cellulitis and gangrene Bilateral Hand cellulitis with blisters. Bilateral LE cellulitis with blisters. Clinically looks less likely to be Necrotizing fascitis and no gas on imaging. Does not appear to be spreading beyond margins demarcated with marker. Hepatitis C Cryoglobulinemia Vasculitis : AMIE positive. IVDA Acute resp failure on vent. Penicillin allergy: rash. has tolerated Cephalosporins in past. Recs: Continue Clindamycin IV Continue Vanco IV (target 15-20) Continue Cefepime IV DC Levaquin Follow cultures to adjust antibiotics. follow clinically if areas on face and hands worsen consider hand surgery consult and plastics for nose. Addendum at 5:26 pm Add Ancef IV for better MSSA coverage. Zora Pompa MD Feb 24, 2018 11:48
--- NOTE | 2018-02-24 13:27 | PD.CAR.PN ---
CVT Progress Note Subjective/Hospital Course: 42-year-old female intubated ventilated and sedated Patient is apparently a IV drug abuser was brought in hypotensive and septic to our institution is currently under care Podiatry was consulted for evaluation of the feet and spoke with Dr. Ramos about it On exam patient has palpable bilateral femoral pulses and palpable popliteal pulses on the right side posterior tibial is palpable dorsalis pedis is by Doppler patient has multiple ulcers and necrotic areas over the right foot. On the left foot I can Doppler posterior tibial pulse and dorsalis pedis pulse but the entire foot is at this point involved in gangrene which has started from the skin down and that this time the entire foot is essentially black Fluid covered bulla and gangrenous soft tissue is going all the way down to the tendons and gangrene involves entire foot from the metatarsals, over the metatarsals to the tarsals and to the ankle and then over to the heel. Toes are spared. This is a result of multiple injections in this area and gangrenous spread. This patient clearly has inflow vessels which are open but she is perfusing a devitalized foot She needs immediate amputation patient will undergo two-stage amputation in the guillotine fashion with secondary closure in a few days. I fully agree with Dr. 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 At the same time I will debride few of these necrotic areas It should be noted that patient's blood supply to the foot was severely compromised and that vessels below the level of the knee look really diseased fibrotic and the only true viable vessel is anterior tibial 02/24/2018 Patient slightly improved Hemodynamically stable We will take him tomorrow for revision resection and closure of the left BKA stump Objective: Vital Signs Date Time Temp Pulse Resp B/P (MAP) Pulse Ox O2 Delivery O2 Flow Rate FiO2 02/24/18 11:41 97 30 02/24/18 07:49 100 30 02/24/18 06:00 100 02/24/18 04:36 100 30 02/24/18 04:00 106 02/24/18 04:00 98.3 106 14 130/102 (111) 100 02/24/18 04:00 30 02/24/18 02:00 108 02/24/18 00:05 100 30 02/24/18 00:00 98.2 117 14 136/99 (111) 100 02/24/18 00:00 30 02/24/18 00:00 117 02/23/18 22:00 107 02/23/18 21:04 99 30 02/23/18 20:00 30 02/23/18 20:00 104 02/23/18 20:00 98.7 104 15 110/79 (89) 96 02/23/18 17:00 103 15 124/93 (103) 100 02/23/18 16:00 99.1 103 16 119/85 (96) 100 02/23/18 16:00 30 02/23/18 15:12 100 30 02/23/18 15:00 108 16 129/96 (107) 100 02/23/18 14:00 109 02/23/18 14:00 109 16 128/92 (104) 96 Labs: Laboratory Tests Test 02/24/18 04:00 White Blood Count 5.1 TH/MM3 (4.0-11.0) Red Blood Count 4.36 MIL/MM3 (4.00-5.30) Hemoglobin 11.2 GM/DL (11.6-15.3) Hematocrit 33.5 % (35.0-46.0) Mean Corpuscular Volume 76.9 FL (80.0-100.0) Mean Corpuscular Hemoglobin 25.7 PG (27.0-34.0) Mean Corpuscular Hemoglobin Concent 33.4 % (32.0-36.0) Red Cell Distribution Width 17.5 % (11.6-17.2) Platelet Count 181 TH/MM3 (150-450) Mean Platelet Volume 8.4 FL (7.0-11.0) Neutrophils (%) (Auto) 58.9 % (16.0-70.0) Lymphocytes (%) (Auto) 28.4 % (9.0-44.0) Monocytes (%) (Auto) 8.2 % (0.0-8.0) Eosinophils (%) (Auto) 3.8 % (0.0-4.0) Basophils (%) (Auto) 0.7 % (0.0-2.0) Neutrophils # (Auto) 3.0 TH/MM3 (1.8-7.7) Lymphocytes # (Auto) 1.5 TH/MM3 (1.0-4.8) Monocytes # (Auto) 0.4 TH/MM3 (0-0.9) Eosinophils # (Auto) 0.2 TH/MM3 (0-0.4) Basophils # (Auto) 0.0 TH/MM3 (0-0.2) CBC Comment DIFF FINAL Differential Comment Blood Urea Nitrogen 4 MG/DL (7-18) Creatinine 0.31 MG/DL (0.50-1.00) Random Glucose 85 MG/DL (74-106) Total Protein 5.3 GM/DL (6.4-8.2) Calcium Level 7.4 MG/DL (8.5-10.1) Magnesium Level 1.6 MG/DL (1.5-2.5) Sodium Level 134 MEQ/L (136-145) Potassium Level 4.2 MEQ/L (3.5-5.1) Chloride Level 101 MEQ/L (98-107) Carbon Dioxide Level 24.3 MEQ/L (21.0-32.0) Anion Gap 9 MEQ/L (5-15) Estimat Glomerular Filtration Rate 233 ML/MIN (>89) Protein Corrected Calcium 8.4 MG/DL (8.5-10.1) Result Diagram: 02/24/1839902/24/18399 David Mays MD Feb 24, 2018 13:27
--- NOTE | 2018-02-24 16:19 | PD.POD ---
Subjective Remarks intubated sedated Past Med/Surg/Social History Social History Smoking Status: Current Every Day Smoker Objective Vital Signs Vital Signs Date Time Temp Pulse Resp B/P (MAP) Pulse Ox O2 Delivery O2 Flow Rate FiO2 02/24/18 14:00 108 02/24/18 12:00 100.3 119 21 148/110 (123) 98 02/24/18 12:00 30 02/24/18 12:00 119 02/24/18 11:41 97 30 02/24/18 10:00 101 02/24/18 08:00 99.3 97 14 120/92 (101) 100 02/24/18 08:00 30 02/24/18 08:00 97 02/24/18 07:49 100 30 02/24/18 06:00 100 02/24/18 04:36 100 30 02/24/18 04:00 106 02/24/18 04:00 98.3 106 14 130/102 (111) 100 02/24/18 04:00 30 02/24/18 02:00 108 02/24/18 00:05 100 30 02/24/18 00:00 98.2 117 14 136/99 (111) 100 02/24/18 00:00 30 02/24/18 00:00 117 02/23/18 22:00 107 02/23/18 21:04 99 30 02/23/18 20:00 30 02/23/18 20:00 104 02/23/18 20:00 98.7 104 15 110/79 (89) 96 02/23/18 17:00 103 15 124/93 (103) 100 Coded Allergies: codeine (Verified Allergy, Severe, 02/20/18) ketorolac (Verified Allergy, Severe, 02/20/18) penicillin G (Verified Allergy, Intermediate, Rash, 02/20/18) Medications and IVs Administered Medications Medications (Trade) Dose Ordered Sig/Malgorzata Route PRN Reason Start Time Stop Time Status Last Admin Dose Admin Potassium Chloride/Sodium Chloride 1,000 ml @ 100 mls/hr Q10H IV 02/20/18 14:57 02/24/18 09:25 Sodium Chloride (NS Flush) 2 ml BID IV FLUSH 02/20/18 21:00 02/24/18 09:00 Lorazepam (Ativan Inj) 2 mg Q4H PRN IV PUSH Agitation/Sedation 02/20/18 15:00 02/20/18 16:30 Heparin Sodium (Porcine) (Heparin Inj) 5,000 units Q12H SQ 02/20/18 16:00 02/24/18 04:02 Chlorhexidine Gluconate (Chlorhexidine 2% Cloth) 3 pack Taper DAILY@04 TOP 02/21/18 04:00 02/17/19 03:59 02/24/18 04:00 Senna/Docusate Sodium (Damari-Colace) 1 tab BID PO 02/21/18 09:00 02/24/18 09:40 Metoprolol Tartrate (Lopressor Inj) 5 mg Q6H PRN IV PUSH heart rate greater than 130/m 02/20/18 16:45 02/20/18 17:03 Chlorhexidine Gluconate (Peridex 0.12% Liq) 15 ml BID@08,20 MT 02/20/18 20:00 02/24/18 08:00 Midazolam HCl 100 ml @ 2 mls/hr TITRATE PRN IV SEDATION 02/20/18 19:15 02/24/18 15:43 Fentanyl Citrate 250 ml @ 5 mls/hr TITRATE PRN IV SEDATION 02/20/18 19:15 02/24/18 10:57 Propofol 100 ml @ 1.2 mls/hr TITRATE PRN IV SEDATION 02/20/18 21:00 02/24/18 15:43 Clindamycin Phosphate 600 mg/ Sodium Chloride 104 ml @ 208 mls/hr Q6H IV 02/21/18 18:00 02/24/18 13:21 Cefepime HCl 2000 mg/Sodium Chloride 100 ml @ 200 mls/hr Q8H IV 02/22/18 10:00 02/24/18 09:40 Famotidine (Pepcid Liq) 20 mg BID NG 02/22/18 21:00 02/24/18 09:40 Artificial Tears (Tears Naturale Opth Soln) 1 drop Q4H PRN EACH EYE DRY EYE 02/22/18 13:00 02/23/18 07:47 Vancomycin HCl 1000 mg/Sodium Chloride 250 ml @ 250 mls/hr Q8H IV 02/23/18 22:00 02/24/18 15:33 Cefazolin Sodium 2000 mg/Sodium Chloride 120 ml @ 240 mls/hr Q8H IV 02/23/18 20:00 02/24/18 13:20 Other Results Laboratory Tests Test 02/22/18 17:30 02/23/18 04:00 02/24/18 04:00 Hemoglobin 8.8 GM/DL 7.6 GM/DL 11.2 GM/DL Hematocrit 27.3 % 23.1 % 33.5 % White Blood Count 3.3 TH/MM3 5.1 TH/MM3 Red Blood Count 3.06 MIL/MM3 4.36 MIL/MM3 Mean Corpuscular Volume 75.4 FL 76.9 FL Mean Corpuscular Hemoglobin 24.7 PG 25.7 PG Mean Corpuscular Hemoglobin Concent 32.8 % 33.4 % Red Cell Distribution Width 18.1 % 17.5 % Platelet Count 159 TH/MM3 181 TH/MM3 Mean Platelet Volume 8.7 FL 8.4 FL Neutrophils (%) (Auto) 45.7 % 58.9 % Lymphocytes (%) (Auto) 40.2 % 28.4 % Monocytes (%) (Auto) 10.9 % 8.2 % Eosinophils (%) (Auto) 2.7 % 3.8 % Basophils (%) (Auto) 0.5 % 0.7 % Neutrophils # (Auto) 1.5 TH/MM3 3.0 TH/MM3 Lymphocytes # (Auto) 1.3 TH/MM3 1.5 TH/MM3 Monocytes # (Auto) 0.4 TH/MM3 0.4 TH/MM3 Eosinophils # (Auto) 0.1 TH/MM3 0.2 TH/MM3 Basophils # (Auto) 0.0 TH/MM3 0.0 TH/MM3 CBC Comment DIFF FINAL DIFF FINAL Differential Comment Laboratory Tests Test 02/23/18 04:00 02/24/18 04:00 Blood Urea Nitrogen 9 MG/DL 4 MG/DL Creatinine 0.27 MG/DL 0.31 MG/DL Random Glucose 64 MG/DL 85 MG/DL Total Protein 5.1 GM/DL 5.3 GM/DL Calcium Level 7.4 MG/DL 7.4 MG/DL Phosphorus Level 2.8 MG/DL Magnesium Level 1.7 MG/DL 1.6 MG/DL Sodium Level 137 MEQ/L 134 MEQ/L Potassium Level 4.0 MEQ/L 4.2 MEQ/L Chloride Level 106 MEQ/L 101 MEQ/L Carbon Dioxide Level 23.1 MEQ/L 24.3 MEQ/L Anion Gap 8 MEQ/L 9 MEQ/L Estimat Glomerular Filtration Rate 273 ML/MIN 233 ML/MIN Protein Corrected Calcium 8.5 MG/DL 8.4 MG/DL Human Chorionic Gonadotropin, Quant LESS THAN 1 MIU/ML Exam-Podiatry Remarks Left- wound vac intact, BKA Right LE: some decreas in edema, no obvious increase in redness beyond cellulitic lines, anterior [place] posterior lateral ankle and heel eschar appear to be dry and more stable today foot is warm, pulses palpable, extensive muscle wasting noted of distal leg. Assessment & Plan A/P Left > Right Foot ankle leg infection, puncture wounds, ischemic changes/ Advanced, BL anterior knee/ patella early infection noted. BL hands, fingers with bullae as well as nose. Severe infection with advancing ischemic changes to left foot, Likely Necrotizing fasciitis- SP BKA 4/3 Plan for OR Left foot ankle and leg debridement tomorrow in coordination with left BKA revision. Will attempt limb salvage, prognosis is poor. Hernan Ramos DPM Feb 24, 2018 16:19
--- NOTE | 2018-02-24 16:50 | HHI.CCPN ---
Subjective Remarks/Hospital Course 02/20: 42-year-old female with history of polysubstance abuse, IVDU, brought in by ambulance from a temporary custodial/living facility where she is staying for evaluation of bilateral leg pain and altered mental status. One of the other residents became concerned about the patient today because of the way she was acting. They noticed several sores on her bilateral lower extremities. The patient admits to IV drug abuse, last use was yesterday. She complains of pain in her bilateral legs, however is otherwise a very poor historian writhing in bed moaning in pain. Chart review shows that the patient has been admitted for this in the past. 02/21: Sedated, easily arousable, orally intubated on mechanical ventilation. Spiked a temperature 101.5 for which Arellano cultures ordered and we are initiating empiric vancomycin and Levaquin. 2-D echo ordered to evaluate heart valves. She had a normal white count this morning. Wounds or bilateral lower extremities unchanged since admission and appeared to be chronic. 02/22: T-max 99.4. Patient underwent TTE this a.m., results pending. Consultation and evaluation performed by podiatry this a.m., vascular surgery urgently consulted. Plan scheduling for left BKA today. Multiple punctate lesions, possible emboli type wounds bilateral upper and lower extremities, as well as left nare. Patient remains sedated and intubated on fentanyl and Versed infusions currently. 02/23: CPAP trials initiated today, patient tolerated for approximately 30 minutes. Tube feeds initiated Jevity 1.5. Wound VAC to left BKA with minimal drainage. Patient to receive 2 units PRBCs per vascular surgery. 02/24: Afebrile. She remains sedated and intubated. left BKA wound VAC intact. Discussion with for return to OR tomorrow for wound closure. Plan with Dr. Philipp Ramos possible debridement of right heel also schedule tentatively for tomorrow. Patient tolerating tube feeds. CPAP trials tolerated today. Patient continues on normal saline infusion with KCl@ 100cc/ hr. Plan for NPO status tonight sodium level 134. Salt Tabs added to medication regimen. Objective Vital Signs Date Time Temp Pulse Resp B/P (MAP) Pulse Ox O2 Delivery O2 Flow Rate FiO2 02/24/18 16:13 99 30 02/24/18 14:00 108 4/5/18 12:00 100.3 21 148/110 (123) 02/20/18 16:43 Room Air Intake and Output 02/24/18 02/24/18 02/25/18 08:00 16:00 00:00 Intake Total 734 ml Output Total 1200 ml Balance -466 ml Result Diagram: 02/24/18 0400 02/24/18 0400 Imaging Last Impressions Chest X-Ray 02/23/18 0600 Signed Impressions: Service Date/Time: Friday, February 23, 2018 02:40 - CONCLUSION: Satisfactory chest appearance Francisco Shabazz MD Abdomen X-Ray 02/22/18 0000 Signed Impressions: Service Date/Time: Thursday, February 22, 2018 17:47 - CONCLUSION: 1. NG tip in stomach. Kevin Wells MD Lower Extremity CT 02/21/18 0000 Signed Impressions: Service Date/Time: Wednesday, February 21, 2018 17:58 - CONCLUSION: 1. Subcutaneous edema in the right lower extremity as above. No discrete abscess. No air locules to suggest gas gangrene. Kevin Wells MD Tibia/Fibula X-Ray 02/20/18 0000 Signed Impressions: Service Date/Time: Tuesday, February 20, 2018 11:01 - CONCLUSION: Soft tissue swelling and irregularity with no radiopaque foreign body. Balaji Zimmerman MD Head CT 02/20/18 0000 Signed Impressions: Service Date/Time: Tuesday, February 20, 2018 11:49 - CONCLUSION: Suboptimal exam secondary to streak and motion artifact with no evidence of hemorrhage or mass effect. Balaji Zimmerman MD Foot X-Ray 02/20/18 0000 Signed Impressions: Service Date/Time: Tuesday, February 20, 2018 11:00 - CONCLUSION: Soft tissue swelling with no radiopaque foreign body or underlying bony abnormality. Balaji Zimmerman MD Last Impressions Chest X-Ray 02/20/18 1010 Signed Impressions: Service Date/Time: Tuesday, February 20, 2018 10:57 - CONCLUSION: No acute disease. Balaji Zimmerman MD Tibia/Fibula X-Ray 02/20/18 0000 Signed Impressions: Service Date/Time: Tuesday, February 20, 2018 11:01 - CONCLUSION: Soft tissue swelling and irregularity with no radiopaque foreign body. Balaji Zimmerman MD Head CT 02/20/18 0000 Signed Impressions: Service Date/Time: Tuesday, February 20, 2018 11:49 - CONCLUSION: Suboptimal exam secondary to streak and motion artifact with no evidence of hemorrhage or mass effect. Balaji Zimmerman MD Foot X-Ray 02/20/18 0000 Signed Impressions: Service Date/Time: Tuesday, February 20, 2018 11:00 - CONCLUSION: Soft tissue swelling with no radiopaque foreign body or underlying bony abnormality. Balaji Zimmerman MD Procedures 02/22 left BKA Objective Remarks Physical exam GENERAL: Well-developed, cachectic appearing, orally intubated on mechanical ventilation, lying in bed. SKIN: Several wounds/ulcerations to bilateral lower extremities with surrounding ecchymosis, no purulent drainage, no crepitus, no fluctuance or induration. HEAD: Atraumatic. Normocephalic. EYES: Pupils equal and round, 3 mm, reactive to light. ENT: Mucous membranes pink and dry. NECK: Trachea midline. No JVD. No nuchal rigidity. CARDIOVASCULAR: S1-S2 regular, no gallop or murmur. No murmur appreciated. Bilateral dorsalis pedis pulses are brisk and equal. RESPIRATORY: Orally intubated on mechanical ventilation. Clear to auscultation. Breath sounds equal bilaterally. GASTROINTESTINAL: Abdomen soft, non-tender, nondistended. MUSCULOSKELETAL: Skin exam as above with moderate edema to left foot and ankle. Multiple large blood blistering bilateral left and right lower extremities,L> R. Multiple petechiae bilateral hands with blistering NEUROLOGICAL: Sedated, arousable, orally intubated on mechanical ventilation, pupils 3 mm bilaterally reactive, follows commands on lightening sedation. No obvious cranial nerve deficits. Motor grossly within normal limits. PSYCHIATRIC: Unable to assess. A/P Assessment and Plan Assessment 42 year old female: Encephalopathy secondary to substance abuse Hyponatremia Polysubstance abuse positive for amphetamines, cocaine, benzodiazepine, opioids Acute respiratory failure on mechanical ventilation Fever with suspected sepsis Multiple leg ulcers/wounds which appeared chronic History of IV drug use Sinus Tachycardia Uncontrolled hypertension Hypoalbuminemia Malnutrition Postoperative pain Plan: Neuro: Sedation with Midazolam/ Propofol/fentanyl gtt. Daily sedation vacation. Ativan when necessary for agitation. Will use Precedex if needed to control agitation/withdrawal symptoms. Follow neuro status. [place] every 4 hours as needed for pain control status post BKA S/P L BKA POD #2 Cardiovascular: IV hydration. Received 2 L normal saline earlier. Lopressor 2.5 mg IV every 6 hourly for tachycardia with labetalol 10 mg IV every 4 hourly when necessary for hypertension. Discontinue Continue normal saline with 20 of K at 100 cc/hr. 02/22 02/22 2-D echo EF 25-30% Pulmonary: Mechanical ventilation Bronchodilators when necessary Maintain O2 sat greater than 92% Continue CPAP trials as tolerated GI/liver: Jevity 1.5 with a goal rate of 45 cc/hr-minimal residual 4/5 NPO after 12MN Renal/: IV hydration, strict intake output, monitor and replete elect lites, follow BUN/ creatinine. Continue normal saline for hyponatremia. 02/23 discontinue upon toleration of tube feeds / Salt tab 1 GM daily ID: Patient had a normal WBC however spiked fever 02/21. She has chronic leg wounds. Repeat chest x-ray and arellano culture and initiate empiric antibiotics with IV vancomycin and Levaquin. Check pro calcitonin. Wound care consulted for lower extremity leg wounds. Endocrine: Watch for hyperglycemia, SSI for glycemic control if needed. Heme: Follow CBC. Msk: Vascular surgery following , S/P left BKA. 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
[2018-02-24] MEDS: SODIUM CHLORIDE 1 GRAM TAB PO SCH (22:20)
[2018-02-25] VITALS (17 sets, daily range): BP systolic 110–131; BP diastolic 78–102; PULSE 84–105; RESP 12–14; TEMP 97.7–98.6; O2SAT 100
[2018-02-25] MEDS: fentaNYL DRIP 250 ML IV PRN ×2 (00:11→12:52)
[2018-02-25] MEDS: PROPOFOL 1000 MG/100 ML INJ 100 ML IV PRN ×3 (00:48→16:28)
[2018-02-25] MEDS: CEFEPIME INJ 2,000 MG in SODIUM CHLORIDE 0.9% INJ 100 ML IV SCH ×3 (01:51→17:55)
[2018-02-25] MEDS: MIDAZOLAM 100 MG/100 ML INJ 100 ML IV PRN ×2 (02:06→12:52)
[2018-02-25] MEDS: CEFAZOLIN INJ 2,000 MG in SODIUM CHLORIDE 0.9% INJ 100 ML IV SCH ×3 (03:10→19:54)
[2018-02-25] MEDS: CHLORHEXIDINE GLUCONATE 2 % 1 PACK (2 CLOTHS) TOP SCH (03:10)
[2018-02-25] MEDS: HEPARIN SODIUM - SQ 10,000 UNITS/ML VIAL SQ SCH ×3 (04:14→17:55)
[2018-02-25] MEDS: CLINDAMYCIN INJ 600 MG in SODIUM CHLORIDE 0.9% INJ 100 ML IV SCH ×4 (04:14→23:40)
[2018-02-25] MEDS: NS + KCL 20 MEQ INJ 1,000 ML IV SCH ×3 (04:17→23:40)
[2018-02-25 04:59] LABS: AUTOMATED NEUTROPHIL # 2.1 TH/MM3 (1.8-7.7); BASOPHIL % 1.1 % (0.0-2.0); EOSINOPHIL # 0.3 TH/MM3 (0-0.4); EOSINOPHIL % 6.4 % (0.0-4.0); HEMATOCRIT 35.7 % (35.0-46.0); HEMOGLOBIN 11.9 GM/DL (11.6-15.3); LYMPH % 37.6 % (9.0-44.0); LYMPHOCYTE # 1.6 TH/MM3 (1.0-4.8); MEAN CELL VOLUME 76.7 FL (80.0-100.0); MEAN CORPUSCULAR HEMOGLOBIN 25.7 PG (27.0-34.0); MEAN CORPUSCULAR HGB CONC 33.5 % (32.0-36.0); MONO % 7.1 % (0.0-8.0); MONOCYTE # 0.3 TH/MM3 (0-0.9); NEUT % 47.8 % (16.0-70.0); PLATELET COUNT 208 TH/MM3 (150-450); RED BLOOD COUNT 4.65 MIL/MM3 (4.00-5.30); WHITE BLOOD COUNT 4.3 TH/MM3 (4.0-11.0)
[2018-02-25 05:00] LABS: BICARBONATE 27.9 MEQ/L (21.0-32.0); CALCIUM 7.2 MG/DL (8.5-10.1); CREATININE 0.32 MG/DL (0.50-1.00); MAGNESIUM 1.6 MG/DL (1.5-2.5); PHOSPHORUS 2.1 MG/DL (2.5-4.9)
[2018-02-25 05:21] LABS: CALCIUM-PROTEIN CORRECTED 8.3 MG/DL (8.5-10.1)
[2018-02-25] MEDS ORDERED: PHARMACY ORDERED LAB ONE (05:45)
--- NOTE | 2018-02-25 05:52 | RADRPT ---
EXAM DATE/TIME: 02/25/2018 04:27 [facility] COMPARISON: CHEST SINGLE AP, February 24, 2018, 3:43. INDICATIONS : Respiratory disease. MEDICAL HISTORY : Cirrhosis. Hepatitis C. cervical ca SURGICAL HISTORY : Hysterectomy. ENCOUNTER: Subsequent ACUITY: 1 day PAIN SCORE: Non-responsive. LOCATION: Bilateral chest FINDINGS: Single AP view of the chest. Endotracheal tube, nasogastric tube, right IJ central venous catheter re main in place. Lungs are clear. No evidence of pleural effusion or pneumothorax. CONCLUSION: Lungs clear. Line and tubes remain in place. Martín Lambert MD on February 25, 2018 at 5:48 Board Certified Radiologist. This report was verified electronically.
[2018-02-25] MEDS: VANCOMYCIN 1,000 MG/NS 250 ML IV SCH ×6 (06:19→21:49)
[2018-02-25] MEDS: MAGNESIUM SULFATE INJ 2 GM in SODIUM CHLORIDE 0.9% INJ 96 ML IV PRN (06:37)
[2018-02-25] MEDS: CHLORHEXIDINE 0.12% (ORAL KIT) 15 ML CUP MT SCH ×2 (08:00→19:54)
[2018-02-25] MEDS: SODIUM CHLORIDE 0.9% FLUSH 10 ML FLUSH IV FLUSH SCH ×2 (09:00→19:55)
[2018-02-25] MEDS: FAMOTIDINE 40 MG/5 ML LIQ 50 ML BTL NG SCH ×2 (09:10→19:55)
[2018-02-25] MEDS: DOCUSATE SODIUM 50 MG/SENNA 8.6 MG TAB PO SCH ×2 (09:10→19:55)
[2018-02-25] MEDS: SODIUM CHLORIDE 1 GRAM TAB PO SCH (09:10)
--- NOTE | 2018-02-25 09:43 | HHI.CCPN ---
Subjective Remarks/Hospital Course 02/20: 42-year-old female with history of polysubstance abuse, IVDU, brought in by ambulance from a temporary halfway/living facility where she is staying for evaluation of bilateral leg pain and altered mental status. One of the other residents became concerned about the patient today because of the way she was acting. They noticed several sores on her bilateral lower extremities. The patient admits to IV drug abuse, last use was yesterday. She complains of pain in her bilateral legs, however is otherwise a very poor historian writhing in bed moaning in pain. Chart review shows that the patient has been admitted for this in the past. 02/21: Sedated, easily arousable, orally intubated on mechanical ventilation. Spiked a temperature 101.5 for which Syed cultures ordered and we are initiating empiric vancomycin and Levaquin. 2-D echo ordered to evaluate heart valves. She had a normal white count this morning. Wounds or bilateral lower extremities unchanged since admission and appeared to be chronic. 02/22: T-max 99.4. Patient underwent TTE this a.m., results pending. Consultation and evaluation performed by podiatry this a.m., vascular surgery urgently consulted. Plan scheduling for left BKA today. Multiple punctate lesions, possible emboli type wounds bilateral upper and lower extremities, as well as left nare. Patient remains sedated and intubated on fentanyl and Versed infusions currently. 02/23: CPAP trials initiated today, patient tolerated for approximately 30 minutes. Tube feeds initiated Jevity 1.5. Wound VAC to left BKA with minimal drainage. Patient to receive 2 units PRBCs per vascular surgery. 02/24: Afebrile. She remains sedated and intubated. left BKA wound VAC intact. Discussion with for return to OR tomorrow for wound closure. Plan with Dr. Philipp Ramos possible debridement of right heel also schedule tentatively for tomorrow. Patient tolerating tube feeds. CPAP trials tolerated today. Patient continues on normal saline infusion with KCl@ 100cc/ hr. Plan for NPO status tonight sodium level 134. Salt Tabs added to medication regimen. 02/25: Afebrile. No acute events overnight the patient remains sedated. Plan for scheduled revision and wound closure of left BKA with Dr. Cabrera as well as debridement of right heel with Dr. Ramos. Patient continues on intermittent CPAP trials. Tolerating tube feeding. Objective Vital Signs Date Time Temp Pulse Resp B/P (MAP) Pulse Ox O2 Delivery O2 Flow Rate FiO2 02/25/18 08:50 100 30 02/25/18 06:00 89 02/25/18 04:00 98.3 14 131/99 (110) Intake and Output 02/25/18 02/25/18 02/25/18 07:59 15:59 23:59 Intake Total 1878 ml Output Total 1900 ml Balance -22 ml Result Diagram: 02/25/18 0400 02/25/18 0400 Imaging Last Impressions Chest X-Ray 02/25/18 06 Signed Impressions: Service Date/Time: Sunday, February 25, 2018 04:27 - CONCLUSION: Lungs clear. Line and tubes remain in place. Martín Lambert MD Abdomen X-Ray 02/22/18 0000 Signed Impressions: Service Date/Time: Thursday, February 22, 2018 17:47 - CONCLUSION: 1. NG tip in stomach. Kevin Wells MD Lower Extremity CT 02/21/18 0000 Signed Impressions: Service Date/Time: Wednesday, February 21, 2018 17:58 - CONCLUSION: 1. Subcutaneous edema in the right lower extremity as above. No discrete abscess. No air locules to suggest gas gangrene. Kevin Wells MD Tibia/Fibula X-Ray 02/20/18 0000 Signed Impressions: Service Date/Time: Tuesday, February 20, 2018 11:01 - CONCLUSION: Soft tissue swelling and irregularity with no radiopaque foreign body. Balaji Zimmerman MD Head CT 02/20/18 0000 Signed Impressions: Service Date/Time: Tuesday, February 20, 2018 11:49 - CONCLUSION: Suboptimal exam secondary to streak and motion artifact with no evidence of hemorrhage or mass effect. Balaji Zimmerman MD Foot X-Ray 02/20/18 0000 Signed Impressions: Service Date/Time: Tuesday, February 20, 2018 11:00 - CONCLUSION: Soft tissue swelling with no radiopaque foreign body or underlying bony abnormality. Balaji Zimmerman MD Last Impressions Chest X-Ray 02/23/18 06 Signed Impressions: Service Date/Time: Friday, February 23, 2018 02:40 - CONCLUSION: Satisfactory chest appearance Francisco Shabazz MD Abdomen X-Ray 02/22/18 0000 Signed Impressions: Service Date/Time: Thursday, February 22, 2018 17:47 - CONCLUSION: 1. NG tip in stomach. Kevin Wells MD Lower Extremity CT 02/21/18 0000 Signed Impressions: Service Date/Time: Wednesday, February 21, 2018 17:58 - CONCLUSION: 1. Subcutaneous edema in the right lower extremity as above. No discrete abscess. No air locules to suggest gas gangrene. Kevin Wells MD Tibia/Fibula X-Ray 02/20/18 0000 Signed Impressions: Service Date/Time: Tuesday, February 20, 2018 11:01 - CONCLUSION: Soft tissue swelling and irregularity with no radiopaque foreign body. Balaji Zimmerman MD Head CT 02/20/18 0000 Signed Impressions: Service Date/Time: Tuesday, February 20, 2018 11:49 - CONCLUSION: Suboptimal exam secondary to streak and motion artifact with no evidence of hemorrhage or mass effect. Balaji Zimmerman MD Foot X-Ray 02/20/18 0000 Signed Impressions: Service Date/Time: Tuesday, February 20, 2018 11:00 - CONCLUSION: Soft tissue swelling with no radiopaque foreign body or underlying bony abnormality. Balaji Zimmerman MD Last Impressions Chest X-Ray 02/20/18 1010 Signed Impressions: Service Date/Time: Tuesday, February 20, 2018 10:57 - CONCLUSION: No acute disease. Balaji Zimmerman MD Tibia/Fibula X-Ray 02/20/18 0000 Signed Impressions: Service Date/Time: Tuesday, February 20, 2018 11:01 - CONCLUSION: Soft tissue swelling and irregularity with no radiopaque foreign body. Balaji Zimmerman MD Head CT 02/20/18 0000 Signed Impressions: Service Date/Time: Tuesday, February 20, 2018 11:49 - CONCLUSION: Suboptimal exam secondary to streak and motion artifact with no evidence of hemorrhage or mass effect. Balaji Zimmerman MD Foot X-Ray 02/20/18 0000 Signed Impressions: Service Date/Time: Tuesday, February 20, 2018 11:00 - CONCLUSION: Soft tissue swelling with no radiopaque foreign body or underlying bony abnormality. Balaji Zimmerman MD Procedures 02/22 left BKA Objective Remarks Physical exam GENERAL: Well-developed, cachectic appearing, orally intubated on mechanical ventilation, lying in bed. SKIN: Several wounds/ulcerations to bilateral lower extremities with surrounding ecchymosis, no purulent drainage, no crepitus, no fluctuance or induration. HEAD: Atraumatic. Normocephalic. EYES: Pupils equal and round, 3 mm, reactive to light. ENT: Mucous membranes pink and dry. NECK: Trachea midline. No JVD. No nuchal rigidity. CARDIOVASCULAR: S1-S2 regular, no gallop or murmur. No murmur appreciated. Bilateral dorsalis pedis pulses are brisk and equal. RESPIRATORY: Orally intubated on mechanical ventilation. Clear to auscultation. Breath sounds equal bilaterally. GASTROINTESTINAL: Abdomen soft, non-tender, nondistended. MUSCULOSKELETAL: Skin exam as above with moderate edema to left foot and ankle. Multiple large blood blistering bilateral left and right lower extremities,L> R. Multiple petechiae bilateral hands with blistering NEUROLOGICAL: Sedated, arousable, orally intubated on mechanical ventilation, pupils 3 mm bilaterally reactive, follows commands on lightening sedation. No obvious cranial nerve deficits. Motor grossly within normal limits. PSYCHIATRIC: Unable to assess. A/P Assessment and Plan Assessment 42 year old female: Encephalopathy secondary to substance abuse Hyponatremia Polysubstance abuse positive for amphetamines, cocaine, benzodiazepine, opioids Acute respiratory failure on mechanical ventilation Fever with suspected sepsis Multiple leg ulcers/wounds which appeared chronic History of IV drug use Sinus Tachycardia Uncontrolled hypertension Hypoalbuminemia Malnutrition Postoperative pain Plan: Neuro: Sedation with Midazolam/ Propofol/fentanyl gtt. Daily sedation vacation. Ativan when necessary for agitation. Will use Precedex if needed to control agitation/withdrawal symptoms. Follow neuro status. [place] every 4 hours as needed for pain control status post BKA S/P L BKA POD #3 4/6 begin p.o. narcotic dosing after surgery today. [place] 10-325 q 6hr Cardiovascular: Lopressor 2.5 mg IV every 6 hourly for tachycardia with labetalol 10 mg IV every 4 hourly when necessary for hypertension. Discontinue Continue normal saline with 20 of K at 100 cc/hr. 4/3 4/3 2-D echo EF 25-30% Pulmonary: Mechanical ventilation Bronchodilators when necessary Maintain O2 sat greater than 92% Continue CPAP trials as tolerated GI/liver: Jevity 1.5 with a goal rate of 45 cc/hr-minimal residual 4/5 NPO after 12MN for surgical revision of left BKA with wound closure and debridement of right heel Renal/: IV hydration, strict intake output, monitor and replete electrolytes, follow BUN /creatinine. 4/4 discontinue NS upon toleration of tube feeds 4/5 Salt tab 1 GM daily ID: Patient had a normal WBC however spiked fever 4/. She has chronic leg wounds. ID following Wound care consulted for lower extremity leg wounds. Wound culture-staph aureus Sputum culture-Klebsiella Endocrine: Watch for hyperglycemia, SSI for glycemic control if needed. Heme: Follow CBC. Obtain postop labs today after surgery, CBC and BMP Transfuse for hemoglobin less than 8 Msk: Vascular surgery following , S/P left BKA. 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
--- NOTE | 2018-02-25 12:28 | HHI.IDPN ---
Subjective Subjective Remarks is a 42 y/o CF with PMHx significant for recurrent cellulitis, Hepatitis C treatment naive, IV drug abuse, reported history of Crohn's disease , COPD. Patient has had multiple hospitalizations most recently in Oct 2017 and 2017 for recurrent bilateral LE cellulitis. 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 Cryoglobulins were detected in low amounts and AMIE was positive. Patient received IV antibiotics and wound care and was discharged to follow up with in wound care clinic. Patient was discharged to infusion clinic to receive dose of Dalbavancin on 01/07 at that time her wounds her superficial fewer and not as many with less evidence of infection. To complicate matters patient does not have a home and her last year. She has been treated with steroids for her vasculitis related non infected ulcers in the past. The rest of the history was obtained by review of medical records. With this background patient was brought in by ambulance from a temporary detention/living facility where she is staying for evaluation of bilateral leg pain and altered mental status. One of the other residents became concerned about the patient today because of the way she was acting. They noticed several sores on her bilateral lower extremities. The patient admitted to others that she abused drugs a day prior to admission. Due to worsening mentation patient was intubated for airway protection. ICU course: Patient has high grade fevers and foot appeared to be worsening due to concern for Necrotizing fascitis a Surgery consult was placed. Podiatry evaluated patient and a stat Vascular consult to has been placed. Gen Surgery evaluated patient with me. The general opinion seems to be non salvageable left leg but await Vascular opinion. Currently not on pressors. Remains sedated. UO good. Skin lesions noted on bilateral hands on dorsal aspect with blisters. Also tip of nose appears necrotic with surrounding erythema. ID consulted for evaluation of sepsis, Mment of LLE wet septic gangrene, Right foot heel gangrene and bilateral LE cellulitis. Overnight events reviewed s/p Left BKA Left limb no further new areas on skin noted. Chronic brown discoloration visible above wound vac area. Right foot with area of erythema beyond marking noted. No fevers No rash No diarrhea Not on pressors. Remains on vent. RN informs me plan for Left BKA revision and Rt heel debridement today. Antibiotics Cefepime IV Vanco IV Clinda Levaquin Lines Line sites with no e.o infection Past Medical History Past Medical History Crohn's disease per history Hepatitis C treatment melissa Recurrent cellulitis Past Surgical History Appendectomy Hysterectomy ? Some bowel surgery for Crohn's Allergies: Coded Allergies: codeine (Verified Allergy, Severe, 02/20/18) ketorolac (Verified Allergy, Severe, 02/20/18) penicillin G (Verified Allergy, Intermediate, Rash, 02/20/18) Objective . Vital Signs Date Time Temp Pulse Resp B/P (MAP) Pulse Ox O2 Delivery O2 Flow Rate FiO2 02/25/18 11:14 30 02/25/18 11:14 100 30 02/25/18 10:00 91 02/25/18 09:35 30 02/25/18 08:50 100 30 02/25/18 08:00 84 02/25/18 08:00 30 02/25/18 08:00 97.7 84 14 117/90 (99) 100 02/25/18 06:00 89 02/25/18 04:45 100 30 02/25/18 04:00 98.3 88 14 131/99 (110) 100 02/25/18 04:00 88 02/25/18 04:00 30 02/25/18 02:00 90 02/25/18 00:00 98.2 93 14 110/86 (94) 100 02/25/18 00:00 30 02/25/18 00:00 93 02/24/18 23:53 100 30 02/24/18 22:00 97 02/24/18 21:01 100 30 02/24/18 20:00 94 02/24/18 20:00 98.3 94 14 104/80 (88) 100 02/24/18 20:00 30 02/24/18 18:00 101 02/24/18 18:00 30 02/24/18 16:13 99 30 02/24/18 16:00 102 02/24/18 16:00 98.4 102 17 119/94 (102) 100 02/24/18 16:00 30 02/24/18 14:00 108 . Laboratory Tests Test 02/24/18 04:00 02/25/18 04:00 White Blood Count 5.1 TH/MM3 4.3 TH/MM3 Red Blood Count 4.36 MIL/MM3 4.65 MIL/MM3 Hemoglobin 11.2 GM/DL 11.9 GM/DL Hematocrit 33.5 % 35.7 % Mean Corpuscular Volume 76.9 FL 76.7 FL Mean Corpuscular Hemoglobin 25.7 PG 25.7 PG Mean Corpuscular Hemoglobin Concent 33.4 % 33.5 % Red Cell Distribution Width 17.5 % 18.0 % Platelet Count 181 TH/MM3 208 TH/MM3 Mean Platelet Volume 8.4 FL 8.0 FL Neutrophils (%) (Auto) 58.9 % 47.8 % Lymphocytes (%) (Auto) 28.4 % 37.6 % Monocytes (%) (Auto) 8.2 % 7.1 % Eosinophils (%) (Auto) 3.8 % 6.4 % Basophils (%) (Auto) 0.7 % 1.1 % Neutrophils # (Auto) 3.0 TH/MM3 2.1 TH/MM3 Lymphocytes # (Auto) 1.5 TH/MM3 1.6 TH/MM3 Monocytes # (Auto) 0.4 TH/MM3 0.3 TH/MM3 Eosinophils # (Auto) 0.2 TH/MM3 0.3 TH/MM3 Basophils # (Auto) 0.0 TH/MM3 0.0 TH/MM3 CBC Comment DIFF FINAL DIFF FINAL Differential Comment Laboratory Tests Test 02/24/18 04:00 02/25/18 04:00 Blood Urea Nitrogen 4 MG/DL 2 MG/DL Creatinine 0.31 MG/DL 0.32 MG/DL Random Glucose 85 MG/DL 88 MG/DL Total Protein 5.3 GM/DL 5.0 GM/DL Calcium Level 7.4 MG/DL 7.2 MG/DL Magnesium Level 1.6 MG/DL 1.6 MG/DL Sodium Level 134 MEQ/L 138 MEQ/L Potassium Level 4.2 MEQ/L 3.9 MEQ/L Chloride Level 101 MEQ/L 105 MEQ/L Carbon Dioxide Level 24.3 MEQ/L 27.9 MEQ/L Anion Gap 9 MEQ/L 5 MEQ/L Estimat Glomerular Filtration Rate 233 ML/MIN 224 ML/MIN Protein Corrected Calcium 8.4 MG/DL 8.3 MG/DL Phosphorus Level 2.1 MG/DL Imaging Last Impressions Chest X-Ray 02/23/18 0600 Signed Impressions: Service Date/Time: Friday, February 23, 2018 02:40 - CONCLUSION: Satisfactory chest appearance Francisco Shabazz MD Abdomen X-Ray 02/22/18 0000 Signed Impressions: Service Date/Time: Thursday, February 22, 2018 17:47 - CONCLUSION: 1. NG tip in stomach. Kevin Wells MD Lower Extremity CT 02/21/18 0000 Signed Impressions: Service Date/Time: Wednesday, February 21, 2018 17:58 - CONCLUSION: 1. Subcutaneous edema in the right lower extremity as above. No discrete abscess. No air locules to suggest gas gangrene. Kevin Wells MD Tibia/Fibula X-Ray 02/20/18 0000 Signed Impressions: Service Date/Time: Tuesday, February 20, 2018 11:01 - CONCLUSION: Soft tissue swelling and irregularity with no radiopaque foreign body. Balaji Zimmerman MD Head CT 02/20/18 0000 Signed Impressions: Service Date/Time: Tuesday, February 20, 2018 11:49 - CONCLUSION: Suboptimal exam secondary to streak and motion artifact with no evidence of hemorrhage or mass effect. Balaji Zimmerman MD Foot X-Ray 02/20/18 0000 Signed Impressions: Service Date/Time: Tuesday, February 20, 2018 11:00 - CONCLUSION: Soft tissue swelling with no radiopaque foreign body or underlying bony abnormality. Balaji Zimmerman MD Physical Exam GENERAL: This is a well-nourished, well-developed patient, in no apparent distress. SKIN: No rashes, ecchymoses or lesions. Cool and dry. HEAD: Atraumatic. Normocephalic. No temporal or scalp tenderness. EYES: Pupils equal round and reactive. No scleral icterus. No injection or drainage. ENT: Intubated. NECK: Trachea midline. Supple, nontender, no meningeal signs. CARDIOVASCULAR: Regular rate and rhythm without murmurs, gallops, or rubs. RESPIRATORY: Clear to auscultation. Breath sounds equal bilaterally. No wheezes , rales, or rhonchi. GASTROINTESTINAL: Abdomen soft, non-tender, nondistended. MUSCULOSKELETAL: Left limb no further new areas on skin noted. Chronic brown discoloration visible above wound vac area. Right foot with area of erythema beyond marking noted. UE hand dorsum with areas of blackening and erythema and blisters noted. Tip of nose with area of blackening noted. NEUROLOGICAL: Sedated Psych cooperative IV line sites with no e.o infection. Assessment & Plan Remarks Sepsis present on admission Left leg and foot with cellulitis, abscess and gangrene. s/p BKA. Right foot heel with cellulitis and gangrene Bilateral Hand cellulitis with blisters. Bilateral LE cellulitis with blisters. Clinically looks less likely to be Necrotizing fascitis and no gas on imaging. Does not appear to be spreading beyond margins demarcated with marker. Hepatitis C Cryoglobulinemia Vasculitis : AMIE positive. IVDA Acute resp failure on vent. Penicillin allergy: rash. has tolerated Cephalosporins in past. Recs: Continue Clindamycin IV Continue Vanco IV (target 15-20) Continue Cefepime IV Continue Ancef IV Keep above regimen till we get intra op cultures on right heel as organisms could be different. Follow cultures to adjust antibiotics. follow clinically if areas on face and hands worsen consider hand surgery consult and plastics for nose. Zora Pompa MD Feb 25, 2018 12:28
--- NOTE | 2018-02-25 21:22 | PD.CAR.PN ---
CVT Progress Note Subjective/Hospital Course: 42-year-old female intubated ventilated and sedated Patient is apparently a IV drug abuser was brought in hypotensive and septic to our institution is currently under care Podiatry was consulted for evaluation of the feet and spoke with Dr. Ramos about it On exam patient has palpable bilateral femoral pulses and palpable popliteal pulses on the right side posterior tibial is palpable dorsalis pedis is by Doppler patient has multiple ulcers and necrotic areas over the right foot. On the left foot I can Doppler posterior tibial pulse and dorsalis pedis pulse but the entire foot is at this point involved in gangrene which has started from the skin down and that this time the entire foot is essentially black Fluid covered bulla and gangrenous soft tissue is going all the way down to the tendons and gangrene involves entire foot from the metatarsals, over the metatarsals to the tarsals and to the ankle and then over to the heel. Toes are spared. This is a result of multiple injections in this area and gangrenous spread. This patient clearly has inflow vessels which are open but she is perfusing a devitalized foot She needs immediate amputation patient will undergo two-stage amputation in the guillotine fashion with secondary closure in a few days. I fully agree with Dr. 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 At the same time I will debride few of these necrotic areas It should be noted that patient's blood supply to the foot was severely compromised and that vessels below the level of the knee look really diseased fibrotic and the only true viable vessel is anterior tibial 02/24/2018 Patient slightly improved Hemodynamically stable We will take him tomorrow for revision resection and closure of the left BKA stump 02/25/2018 Patient with the guillotine amputation of left leg We will take for closure tomorrow for closure of the BKA stump and debridement Today, due to scheduling conflicts and emergencies surgery had to be postponed. Objective: Vital Signs Date Time Temp Pulse Resp B/P (MAP) Pulse Ox O2 Delivery O2 Flow Rate FiO2 02/25/18 18:00 105 02/25/18 16:00 30 02/25/18 16:00 99 02/25/18 16:00 98.5 99 14 129/102 (111) 100 02/25/18 15:56 100 30 02/25/18 14:00 95 02/25/18 13:50 30 02/25/18 12:00 95 02/25/18 12:00 30 02/25/18 12:00 97.8 95 12 129/101 (110) 100 02/25/18 11:14 30 02/25/18 11:14 100 30 02/25/18 10:00 91 02/25/18 09:35 30 02/25/18 08:50 100 30 02/25/18 08:00 84 02/25/18 08:00 30 02/25/18 08:00 97.7 84 14 117/90 (99) 100 02/25/18 06:00 89 02/25/18 04:45 100 30 02/25/18 04:00 98.3 88 14 131/99 (110) 100 02/25/18 04:00 88 02/25/18 04:00 30 02/25/18 02:00 90 02/25/18 00:00 98.2 93 14 110/86 (94) 100 02/25/18 00:00 30 02/25/18 00:00 93 02/24/18 23:53 100 30 02/24/18 22:00 97 Result Diagram: 02/25/18 0400 02/25/18 0400 David Mays MD Feb 25, 2018 21:22
[2018-02-26] VITALS (19 sets, daily range): BP systolic 107–143; BP diastolic 69–104; PULSE 90–137; RESP 14–44; TEMP 98.2–98.9; O2SAT 95–100
[2018-02-26] MEDS: MIDAZOLAM 100 MG/100 ML INJ 100 ML IV PRN ×2 (00:07→10:13)
[2018-02-26] MEDS: CEFEPIME INJ 2,000 MG in SODIUM CHLORIDE 0.9% INJ 100 ML IV SCH ×3 (02:18→18:28)
[2018-02-26] MEDS: fentaNYL DRIP 250 ML IV PRN ×2 (02:26→12:40)
[2018-02-26] MEDS: HEPARIN SODIUM - SQ 10,000 UNITS/ML VIAL SQ SCH ×2 (03:44→16:00)
[2018-02-26] MEDS: CEFAZOLIN INJ 2,000 MG in SODIUM CHLORIDE 0.9% INJ 100 ML IV SCH ×3 (03:44→19:40)
[2018-02-26] MEDS: CHLORHEXIDINE GLUCONATE 2 % 1 PACK (2 CLOTHS) TOP SCH (04:00)
[2018-02-26] MEDS: CLINDAMYCIN INJ 600 MG in SODIUM CHLORIDE 0.9% INJ 100 ML IV SCH ×4 (05:28→23:40)
[2018-02-26] MEDS: VANCOMYCIN 1,000 MG/NS 250 ML IV SCH ×6 (06:06→21:22)
[2018-02-26 06:12] LABS: HEMATOCRIT 37.1 % (35.0-46.0); HEMOGLOBIN 12.3 GM/DL (11.6-15.3); MEAN CELL VOLUME 77.8 FL (80.0-100.0); MEAN CORPUSCULAR HEMOGLOBIN 25.8 PG (27.0-34.0); MEAN CORPUSCULAR HGB CONC 33.2 % (32.0-36.0); MEAN PLATELET VOLUME 8.3 FL (7.0-11.0); PLATELET COUNT 223 TH/MM3 (150-450); RED BLOOD COUNT 4.76 MIL/MM3 (4.00-5.30); RED CELL DISTRIBUTION WIDTH 18.1 % (11.6-17.2)
[2018-02-26 06:27] LABS: BICARBONATE 27.1 MEQ/L (21.0-32.0); CALCIUM 7.5 MG/DL (8.5-10.1); CREATININE 0.32 MG/DL (0.50-1.00)
--- NOTE | 2018-02-26 06:33 | RADRPT ---
EXAM DATE/TIME: 02/26/2018 04:59 [facility] COMPARISON: CHEST SINGLE AP, February 25, 2018, 4:27. INDICATIONS : Shortness of breath, possible pulmonary disease. MEDICAL HISTORY : Cirrhosis. Hepatitis C. Cervical ca SURGICAL HISTORY : Hysterectomy. ENCOUNTER: Subsequent ACUITY: 1 week PAIN SCORE: Non-responsive. LOCATION: Bilateral chest FINDINGS: Single AP view of the chest. Right IJ central venous catheter, endotracheal tube, and nasogastric tub e again seen. Lungs are clear. Cardiomediastinal silhouette unchanged. No evidence of pleural effusio n or pneumothorax. CONCLUSION: No acute cardiopulmonary disease identified. Martín Lambert MD on February 26, 2018 at 6:31 Board Certified Radiologist. This report was verified electronically.
[2018-02-26] MEDS: PROPOFOL 1000 MG/100 ML INJ 100 ML IV PRN ×3 (06:35→18:47)
[2018-02-26] MEDS: CHLORHEXIDINE 0.12% (ORAL KIT) 15 ML CUP MT SCH ×2 (08:00→19:40)
[2018-02-26] MEDS: SODIUM CHLORIDE 0.9% FLUSH 10 ML FLUSH IV FLUSH SCH ×2 (08:26→19:41)
[2018-02-26] MEDS: DOCUSATE SODIUM 50 MG/SENNA 8.6 MG TAB PO SCH ×2 (08:28→19:41)
[2018-02-26] MEDS: FAMOTIDINE 40 MG/5 ML LIQ 50 ML BTL NG SCH ×2 (08:28→19:41)
[2018-02-26] MEDS: SODIUM CHLORIDE 1 GRAM TAB PO SCH (08:28)
[2018-02-26] MEDS ORDERED: BUPIVACAINE HCL PF 0.25% 30 ML VIAL ONE (09:00)
[2018-02-26] MEDS: NS + KCL 20 MEQ INJ 1,000 ML IV SCH ×2 (09:43→19:40)
[2018-02-26] MEDS ORDERED: KETAMINE HCL 50 MG/5 ML SYRINGE ONE (10:02)
[2018-02-26] MEDS ORDERED: ceFAZolin INJ 1,000 MG VIAL ONE (11:26)
[2018-02-26] MEDS ORDERED: CLINDAMYCIN PHOS 600 MG/4 ML VIAL ONE (11:26)
--- NOTE | 2018-02-26 11:37 | HHI.PR ---
Immediate Post Op Note Procedure Date: Feb 26, 2018 Pre Op Diagnosis: Right lower extremity ulcers infection Post Op Diagnosis: Same Surgeon: Hernan Cox Air Sealing Technician(s): ct scan technician's Procedure: Expansile full-thickness debridement of pretibial, lateral foot, posterior heel infected ulcers, right lower extremity Findings: The patient was brought in the operating room intubated and sedated from the unit. The bilateral lower extremities were scrubbed prepped and draped in the usual aseptic fashion the left lower extremity is being addressed by vascular surgery. The right lower extremity was examined there is noted to be an expansile full-thickness eschar the pretibial area measuring approximately 6 cm 3 cm with mild periwound erythema upon curettage and debridement there is noted to be viability at the wound borders. The lateral foot was then examined there is noted to be a full-thickness eschar that appears to be a puncture site that went down but probably on the deep dermal junction however no bone exposed. This measured approximately 3 cm 4 cm upon excising this lesion there is viable bleeding tissue beneath. There was mild pus noted to be within the eschar. A culture was taken at this point. The posterior heel was also examined. There is noted to be an eschar with erythematous borders upon debridement there is noted to be viable tissue. Xeroform was placed over all the wounds after cleansing with copious amounts of normal saline. Prognosis is poor regarding this extremity however will continue wound care and possible weekly debridements to attempt limb salvage as the patient already lost the left lower extremity to severe rapidly progressing septic limb. I reviewed the case with vascular surgeon who took over for revision of the left below-the- knee amputation. Complications: None Specimen(s) removed: Right foot wound culture Estimated blood loss: Less than 5 ML's Anesthesia: General Tourniquet time (min at mmHg) None Patient to: Other Patient Condition: Critical Implant/Devices: SEE IMPLANT LOG (if applicable) Date/Time of Procedure: SEE SURGICAL CARE RECORD Hernan Cox M Feb 26, 2018 11:37
[2018-02-26] MEDS ORDERED: PROPOFOL 200 MG/20 ML AMP IV ONE (12:00)
[2018-02-26] MEDS ORDERED: PHENYLEPH/NS 1000 MCG/10 ML SYR IV ONE (12:00)
[2018-02-26] MEDS ORDERED: DEXAMETHASONE SOD PHOS 4 MG/ML VIAL IV ONE (12:00)
[2018-02-26] MEDS ORDERED: ROCURONIUM INJ 50 MG/5 ML SYRINGE IV PUSH ONE (12:00)
[2018-02-26] MEDS ORDERED: ONDANSETRON HCL 4 MG/2 ML VIAL IV PUSH ONE (12:00)
[2018-02-26] MEDS ORDERED: LIDOCAINE HCL 1% PF 5 ML SYRINGE OTHER ONE (12:00)
[2018-02-26 15:34] LABS: AUTOMATED NEUTROPHIL # 6.4 TH/MM3 (1.8-7.7); BASOPHIL % 0.3 % (0.0-2.0); EOSINOPHIL % 0.2 % (0.0-4.0); HEMATOCRIT 38.7 % (35.0-46.0); HEMOGLOBIN 13.2 GM/DL (11.6-15.3); LYMPH % 4.4 % (9.0-44.0); LYMPHOCYTE # 0.3 TH/MM3 (1.0-4.8); MEAN CORPUSCULAR HEMOGLOBIN 26.2 PG (27.0-34.0); MEAN PLATELET VOLUME 8.1 FL (7.0-11.0); MONO % 3.1 % (0.0-8.0); MONOCYTE # 0.2 TH/MM3 (0-0.9); PLATELET COUNT 228 TH/MM3 (150-450); RED BLOOD COUNT 5.02 MIL/MM3 (4.00-5.30)
[2018-02-26 16:05] LABS: BICARBONATE 26.9 MEQ/L (21.0-32.0); CALCIUM 7.8 MG/DL (8.5-10.1); CREATININE 0.35 MG/DL (0.50-1.00)
--- NOTE | 2018-02-26 16:10 | MP ---
cc: David Mays MD DATE OF OPERATION: 02/26/2018 DATE OF SURGERY: 02/26/2018 PREOPERATIVE DIAGNOSIS: Gangrene of the left foot, status post guillotine amputation. POSTOPERATIVE DIAGNOSIS: Gangrene of the left foot, status post guillotine amputation. OPERATIVE PROCEDURE: Stage 2 of the 2-stage amputation with below-knee amputation and closure of the left leg stump. SURGEON: David Mays MD ANESTHESIA: General. ESTIMATED BLOOD LOSS: 100 mL. DESCRIPTION OF PROCEDURE: The patient prepped and draped in usual fashion. The wound VAC is removed. The stump is now observed. The patient has most of the leg above the level of the ankle and foot had been removed. The area now appears much sack cleaner and less swollen than it used to be in the first operation a few days ago. This wound is thoroughly irrigated with some saline and then incision was made anteriorly over the tibia, carried down laterally with a 10 blade, deepened down with the cautery, anterior tibial artery and veins ligated and divided. The periosteum is now elevated about an inch above the level of the incision with periosteal elevator and then tibia and fibula were transected with the oscillating saw and the posterior flap created with amputation ____ specimen removed. The trifurcation vessels are now ligated with 0 Vicryl stick ties and small bleeders cauterized. The anterior tibial nerve was allowed to retract. The tibia is now trimmed and anterior sharp portion resected and then rounded with a rasp. The area irrigated with copious amounts of saline and then closure obtained, deep layer to deep layer, superficial to superificial with 0 Vicryl stitches and there is an area of the skin on the posterior flap that is necrotic. This one is resected in a triangular fashion and then a rotational flap of the posterior skin is carried out from medial to lateral in order to cover the stump. Skin is now closed with 2-0 Prolene and the rotational flap is closed with 2-0 Prolene. This completely closes and covered the stump. The patient tolerated the procedure well. MD LORETO Winters/ABIMAEL , 02:47 PM , 04:09 PM
--- NOTE | 2018-02-26 19:18 | HHI.CCPN ---
Subjective Remarks/Hospital Course 02/20: 42-year-old female with history of polysubstance abuse, IVDU, brought in by ambulance from a temporary group home/living facility where she is staying for evaluation of bilateral leg pain and altered mental status. One of the other residents became concerned about the patient today because of the way she was acting. They noticed several sores on her bilateral lower extremities. The patient admits to IV drug abuse, last use was yesterday. She complains of pain in her bilateral legs, however is otherwise a very poor historian writhing in bed moaning in pain. Chart review shows that the patient has been admitted for this in the past. 02/21: Sedated, easily arousable, orally intubated on mechanical ventilation. Spiked a temperature 101.5 for which Syed cultures ordered and we are initiating empiric vancomycin and Levaquin. 2-D echo ordered to evaluate heart valves. She had a normal white count this morning. Wounds or bilateral lower extremities unchanged since admission and appeared to be chronic. 02/22: T-max 99.4. Patient underwent TTE this a.m., results pending. Consultation and evaluation performed by podiatry this a.m., vascular surgery urgently consulted. Plan scheduling for left BKA today. Multiple punctate lesions, possible emboli type wounds bilateral upper and lower extremities, as well as left nare. Patient remains sedated and intubated on fentanyl and Versed infusions currently. 02/23: CPAP trials initiated today, patient tolerated for approximately 30 minutes. Tube feeds initiated Jevity 1.5. Wound VAC to left BKA with minimal drainage. Patient to receive 2 units PRBCs per vascular surgery. 02/24: Afebrile. She remains sedated and intubated. left BKA wound VAC intact. Discussion with for return to OR tomorrow for wound closure. Plan with Dr. Philipp Ramos possible debridement of right heel also schedule tentatively for tomorrow. Patient tolerating tube feeds. CPAP trials tolerated today. Patient continues on normal saline infusion with KCl@ 100cc/ hr. Plan for NPO status tonight sodium level 134. Salt Tabs added to medication regimen. 02/25: Afebrile. No acute events overnight the patient remains sedated. Plan for scheduled revision and wound closure of left BKA with Dr. Cabrera as well as debridement of right heel with Dr. Ramos. Patient continues on intermittent CPAP trials. Tolerating tube feeding. 02/26: Patient underwent revision and wound closure of left BKA, as well as debridement right heel. Posttransfusion CBC is stable. Plan initiation of CPAP trials this afternoon, plan to transition to Precedex for SBT trial in a.m. for possible extubation secondary to high opioid requirements secondary to history of polysubstance abuse.PO narcotics added to medication regimen. IV fluids discontinued. Objective Vital Signs Date Time Temp Pulse Resp B/P (MAP) Pulse Ox O2 Delivery O2 Flow Rate FiO2 02/26/18 18:00 114 02/26/18 17:14 100 40 02/26/18 16:00 98.3 15 108/72 (84) Intake and Output 02/26/18 02/26/18 02/27/18 08:00 16:00 00:00 Intake Total 424 ml 500 ml Output Total 2600 ml 1500 ml Balance -2176 ml -1000 ml Result Diagram: 02/26/18 1455 02/26/18 1455 Imaging Last Impressions Chest X-Ray 02/25/18 0600 Signed Impressions: Service Date/Time: Sunday, February 25, 2018 04:27 - CONCLUSION: Lungs clear. Line and tubes remain in place. Martín Lambert MD Abdomen X-Ray 02/22/18 0000 Signed Impressions: Service Date/Time: Thursday, February 22, 2018 17:47 - CONCLUSION: 1. NG tip in stomach. Kevin Wells MD Lower Extremity CT 02/21/18 0000 Signed Impressions: Service Date/Time: Wednesday, February 21, 2018 17:58 - CONCLUSION: 1. Subcutaneous edema in the right lower extremity as above. No discrete abscess. No air locules to suggest gas gangrene. Kevin Wells MD Tibia/Fibula X-Ray 02/20/18 0000 Signed Impressions: Service Date/Time: Tuesday, February 20, 2018 11:01 - CONCLUSION: Soft tissue swelling and irregularity with no radiopaque foreign body. Balaji Zimmerman MD Head CT 02/20/18 0000 Signed Impressions: Service Date/Time: Tuesday, February 20, 2018 11:49 - CONCLUSION: Suboptimal exam secondary to streak and motion artifact with no evidence of hemorrhage or mass effect. Balaji Zimmerman MD Foot X-Ray 02/20/18 0000 Signed Impressions: Service Date/Time: Tuesday, February 20, 2018 11:00 - CONCLUSION: Soft tissue swelling with no radiopaque foreign body or underlying bony abnormality. Balaji Zimmerman MD Last Impressions Chest X-Ray 02/23/18 0600 Signed Impressions: Service Date/Time: Friday, February 23, 2018 02:40 - CONCLUSION: Satisfactory chest appearance Francisco Shabazz MD Abdomen X-Ray 02/22/18 0000 Signed Impressions: Service Date/Time: Thursday, February 22, 2018 17:47 - CONCLUSION: 1. NG tip in stomach. Kevin Wells MD Lower Extremity CT 02/21/18 0000 Signed Impressions: Service Date/Time: Wednesday, February 21, 2018 17:58 - CONCLUSION: 1. Subcutaneous edema in the right lower extremity as above. No discrete abscess. No air locules to suggest gas gangrene. Kevin Wells MD Tibia/Fibula X-Ray 02/20/18 0000 Signed Impressions: Service Date/Time: Tuesday, February 20, 2018 11:01 - CONCLUSION: Soft tissue swelling and irregularity with no radiopaque foreign body. Balaji Zimmerman MD Head CT 02/20/18 0000 Signed Impressions: Service Date/Time: Tuesday, February 20, 2018 11:49 - CONCLUSION: Suboptimal exam secondary to streak and motion artifact with no evidence of hemorrhage or mass effect. Balaji Zimmerman MD Foot X-Ray 02/20/18 0000 Signed Impressions: Service Date/Time: Tuesday, February 20, 2018 11:00 - CONCLUSION: Soft tissue swelling with no radiopaque foreign body or underlying bony abnormality. Balaji Zimmerman MD Last Impressions Chest X-Ray 02/20/18 1010 Signed Impressions: Service Date/Time: Tuesday, February 20, 2018 10:57 - CONCLUSION: No acute disease. Balaji Zimmerman MD Tibia/Fibula X-Ray 02/20/18 0000 Signed Impressions: Service Date/Time: Tuesday, February 20, 2018 11:01 - CONCLUSION: Soft tissue swelling and irregularity with no radiopaque foreign body. Balaji Zimmerman MD Head CT 02/20/18 0000 Signed Impressions: Service Date/Time: Tuesday, February 20, 2018 11:49 - CONCLUSION: Suboptimal exam secondary to streak and motion artifact with no evidence of hemorrhage or mass effect. Balaji Zimmerman MD Foot X-Ray 02/20/18 0000 Signed Impressions: Service Date/Time: Tuesday, February 20, 2018 11:00 - CONCLUSION: Soft tissue swelling with no radiopaque foreign body or underlying bony abnormality. Balaji Zimmerman MD Procedures 02/22 left BKA 02/26 revision and wound closure left BKA and right heel debridement Objective Remarks Physical exam GENERAL: Well-developed, cachectic appearing, orally intubated on mechanical ventilation, lying in bed. SKIN: Several wounds/ulcerations to bilateral lower extremities with surrounding ecchymosis, no purulent drainage, no crepitus, no fluctuance or induration. HEAD: Atraumatic. Normocephalic. EYES: Pupils equal and round, 3 mm, reactive to light. ENT: Mucous membranes pink and dry. NECK: Trachea midline. No JVD. No nuchal rigidity. CARDIOVASCULAR: S1-S2 regular, no gallop or murmur. No murmur appreciated. Bilateral dorsalis pedis pulses are brisk and equal. RESPIRATORY: Orally intubated on mechanical ventilation. Clear to auscultation. Breath sounds equal bilaterally. GASTROINTESTINAL: Abdomen soft, non-tender, nondistended. MUSCULOSKELETAL: Skin exam as above with moderate edema to left foot and ankle. Multiple large blood blistering bilateral left and right lower extremities,L> R. Multiple petechiae bilateral hands with blistering NEUROLOGICAL: Sedated, arousable, orally intubated on mechanical ventilation, pupils 3 mm bilaterally reactive, follows commands on lightening sedation. No obvious cranial nerve deficits. Motor grossly within normal limits. PSYCHIATRIC: Unable to assess. A/P Assessment and Plan Assessment 42 year old female: Encephalopathy secondary to substance abuse Hyponatremia Polysubstance abuse positive for amphetamines, cocaine, benzodiazepine, opioids Acute respiratory failure on mechanical ventilation Fever with suspected sepsis Multiple leg ulcers/wounds which appeared chronic History of IV drug use Sinus Tachycardia Uncontrolled hypertension Hypoalbuminemia Malnutrition Postoperative pain Plan: Neuro: Sedation with Midazolam/ Propofol/fentanyl infusion to maintain ventilator synchrony. Consider Precedex infusion for transitioning for SBT trials and extubation Daily sedation vacation. Ativan when necessary for agitation. Will use Precedex if needed to transition for SBT trials and possible extubation [place] every 4 hours as needed for pain control status post LBKA S/P L BKA POD #4, S/P revision and closure of left BKA, and debridement of right heel 4/6 [place] 10-325 q 6hr Cardiovascular: Lopressor 2.5 mg IV every 6 hourly for tachycardia with labetalol 10 mg IV every 4 hourly when necessary for hypertension. Hep-Lock IV 4/ 2-D echo EF 25-30% Pulmonary: Mechanical ventilation Bronchodilators when necessary Maintain O2 sat greater than 92% Continue CPAP trials as tolerated. Plan for SBT parameters GI/liver: Restart Jevity 1.5 with a goal rate of 45 cc/hr-minimal residual Bowel regimen Renal/: strict intake output monitor and replete electrolytes follow BUN/creatinine. 4/ Salt tab 1 GM daily ID: Patient had a normal WBC however spiked fever /. Wound care consulted and following chronic leg wounds. ID following Wound care consulted for lower extremity leg wounds. Wound culture-staph aureus Sputum culture-Klebsiella Endocrine: Watch for hyperglycemia, SSI for glycemic control if needed. Heme: Follow CBC. Obtain postop labs today after surgery, CBC and BMP Transfuse for hemoglobin less than 8 Msk: Vascular surgery following , S/P left BKA. S/P wound closure and right heel debridement today. 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
[2018-02-26] MEDS: DEXMEDETOMIDINE INJ 200 MCG in SODIUM CHLORIDE 0.9% INJ 50 ML IV PRN (21:12)
[2018-02-27] VITALS (20 sets, daily range): BP systolic 100–167; BP diastolic 64–103; PULSE 84–125; RESP 17–36; TEMP 98.4–99.4; O2SAT 86–100
[2018-02-27] MEDS: DEXMEDETOMIDINE INJ 200 MCG in SODIUM CHLORIDE 0.9% INJ 50 ML IV PRN ×3 (01:30→08:31)
[2018-02-27] MEDS: CEFEPIME INJ 2,000 MG in SODIUM CHLORIDE 0.9% INJ 100 ML IV SCH ×2 (02:22→08:30)
[2018-02-27] MEDS: CHLORHEXIDINE GLUCONATE 2 % 1 PACK (2 CLOTHS) TOP SCH (04:00)
[2018-02-27] MEDS: HEPARIN SODIUM - SQ 10,000 UNITS/ML VIAL SQ SCH ×2 (04:00→16:00)
[2018-02-27] MEDS: CEFAZOLIN INJ 2,000 MG in SODIUM CHLORIDE 0.9% INJ 100 ML IV SCH ×3 (04:16→20:05)
[2018-02-27 04:20] LABS: HEMATOCRIT 30.8 % (35.0-46.0); HEMOGLOBIN 10.4 GM/DL (11.6-15.3); MEAN CORPUSCULAR HGB CONC 33.8 % (32.0-36.0); MEAN PLATELET VOLUME 7.9 FL (7.0-11.0); PLATELET COUNT 216 TH/MM3 (150-450); RED BLOOD COUNT 4.01 MIL/MM3 (4.00-5.30); RED CELL DISTRIBUTION WIDTH 18.2 % (11.6-17.2); WHITE BLOOD COUNT 4.7 TH/MM3 (4.0-11.0)
--- NOTE | 2018-02-27 04:42 | RADRPT ---
EXAM DATE/TIME: 02/27/2018 03:52 [facility] COMPARISON: CHEST SINGLE AP, February 26, 2018, 4:59. INDICATIONS : Shortness of breath, possible pulmonary disease. MEDICAL HISTORY : Cirrhosis. Hepatitis C. Cervical ca SURGICAL HISTORY : Hysterectomy. ENCOUNTER: Subsequent ACUITY: 1 week PAIN SCORE: Non-responsive. LOCATION: Bilateral chest FINDINGS: Single AP view of the chest. Endotracheal tube and nasogastric, right IJ central venous catheter donn in in place. New medial left lower lobe consolidation versus atelectasis and small left pleural effus ion. Cardiomediastinal silhouette within normal limits. No evidence of pneumothorax. CONCLUSION: New medial left lung base consolidation versus atelectasis and small pleural effusion. Martín Lambert MD on February 27, 2018 at 4:40 Board Certified Radiologist. This report was verified electronically.
[2018-02-27 04:45] LABS: BICARBONATE 29.7 MEQ/L (21.0-32.0); CALCIUM 7.4 MG/DL (8.5-10.1); CREATININE 0.36 MG/DL (0.50-1.00); MAGNESIUM 1.6 MG/DL (1.5-2.5); PHOSPHORUS 2.7 MG/DL (2.5-4.9)
[2018-02-27 04:56] LABS: CALCIUM-PROTEIN CORRECTED 8.5 MG/DL (8.5-10.1); TOTAL PROTEIN 5.1 GM/DL (6.4-8.2)
[2018-02-27] MEDS: CLINDAMYCIN INJ 600 MG in SODIUM CHLORIDE 0.9% INJ 100 ML IV SCH (05:44)
[2018-02-27] MEDS: NS + KCL 20 MEQ INJ 1,000 ML IV SCH (05:45)
[2018-02-27] MEDS: VANCOMYCIN 1,000 MG/NS 250 ML IV SCH ×2 (05:45)
[2018-02-27] MEDS: CHLORHEXIDINE 0.12% (ORAL KIT) 15 ML CUP MT SCH ×2 (08:00→20:00)
[2018-02-27] MEDS: SODIUM CHLORIDE 0.9% FLUSH 10 ML FLUSH IV FLUSH SCH ×2 (08:22→20:06)
[2018-02-27] MEDS: DOCUSATE SODIUM 50 MG/SENNA 8.6 MG TAB PO SCH ×2 (08:22→20:06)
[2018-02-27] MEDS: FAMOTIDINE 40 MG/5 ML LIQ 50 ML BTL NG SCH ×2 (08:22→20:06)
[2018-02-27] MEDS: SODIUM CHLORIDE 1 GRAM TAB PO SCH (08:22)
--- NOTE | 2018-02-27 10:22 | HHI.IDPN ---
Subjective Subjective Remarks is a 42 y/o CF with PMHx significant for recurrent cellulitis, Hepatitis C treatment naive, IV drug abuse, reported history of Crohn's disease , COPD. Patient has had multiple hospitalizations most recently in Oct 2017 and 2017 for recurrent bilateral LE cellulitis. 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 Cryoglobulins were detected in low amounts and AMIE was positive. Patient received IV antibiotics and wound care and was discharged to follow up with in wound care clinic. Patient was discharged to infusion clinic to receive dose of Dalbavancin on 01/07 at that time her wounds her superficial fewer and not as many with less evidence of infection. To complicate matters patient does not have a home and her last year. She has been treated with steroids for her vasculitis related non infected ulcers in the past. The rest of the history was obtained by review of medical records. With this background patient was brought in by ambulance from a temporary fdc/living facility where she is staying for evaluation of bilateral leg pain and altered mental status. One of the other residents became concerned about the patient today because of the way she was acting. They noticed several sores on her bilateral lower extremities. The patient admitted to others that she abused drugs a day prior to admission. Due to worsening mentation patient was intubated for airway protection. ICU course: Patient has high grade fevers and foot appeared to be worsening due to concern for Necrotizing fascitis a Surgery consult was placed. Podiatry evaluated patient and a stat Vascular consult to has been placed. Gen Surgery evaluated patient with me. The general opinion seems to be non salvageable left leg but await Vascular opinion. Currently not on pressors. Remains sedated. UO good. Skin lesions noted on bilateral hands on dorsal aspect with blisters. Also tip of nose appears necrotic with surrounding erythema. ID consulted for evaluation of sepsis, Mment of LLE wet septic gangrene, Right foot heel gangrene and bilateral LE cellulitis. Overnight events reviewed s/p Left BKA 02/27 had further revision of Left BKA and Right foot heel I&D in OR. Left limb no further new areas on skin noted. Chronic brown discoloration visible above wound vac area. No fevers No rash No diarrhea Not on pressors. Remains on vent. on CPAP trial. Antibiotics Cefepime IV Vanco IV Clinda Levaquin Lines Line sites with no e.o infection Past Medical History Past Medical History Crohn's disease per history Hepatitis C treatment melissa Recurrent cellulitis Past Surgical History Appendectomy Hysterectomy ? Some bowel surgery for Crohn's Allergies: Coded Allergies: codeine (Verified Allergy, Severe, 02/20/18) ketorolac (Verified Allergy, Severe, 02/20/18) penicillin G (Verified Allergy, Intermediate, Rash, 02/20/18) Objective . Vital Signs Date Time Temp Pulse Resp B/P (MAP) Pulse Ox O2 Delivery O2 Flow Rate FiO2 02/27/18 09:50 100 40 02/27/18 06:00 94 02/27/18 04:00 88 02/27/18 04:00 98.8 88 17 100/64 (76) 100 02/27/18 04:00 40 02/27/18 03:25 98 40 02/27/18 02:00 110 02/27/18 00:00 40 02/27/18 00:00 99.4 117 28 137/87 (104) 97 02/27/18 00:00 117 02/26/18 22:00 109 02/26/18 21:00 40 02/26/18 20:59 100 40 02/26/18 20:56 40 02/26/18 20:00 107 02/26/18 20:00 40 02/26/18 20:00 98.9 107 14 107/73 (84) 100 02/26/18 18:00 114 02/26/18 17:14 100 40 02/26/18 16:00 122 02/26/18 16:00 98.3 122 15 108/72 (84) 99 02/26/18 16:00 40 02/26/18 14:00 128 02/26/18 13:35 96 40 02/26/18 12:00 40 02/26/18 12:00 98.9 128 16 118/69 (85) 95 02/26/18 12:00 127 02/26/18 10:20 100 100 . Laboratory Tests Test 02/26/18 04:20 02/26/18 14:55 02/27/18 04:00 White Blood Count 4.0 TH/MM3 7.0 TH/MM3 4.7 TH/MM3 Red Blood Count 4.76 MIL/MM3 5.02 MIL/MM3 4.01 MIL/MM3 Hemoglobin 12.3 GM/DL 13.2 GM/DL 10.4 GM/DL Hematocrit 37.1 % 38.7 % 30.8 % Mean Corpuscular Volume 77.8 FL 77.0 FL 77.0 FL Mean Corpuscular Hemoglobin 25.8 PG 26.2 PG 26.0 PG Mean Corpuscular Hemoglobin Concent 33.2 % 34.0 % 33.8 % Red Cell Distribution Width 18.1 % 18.0 % 18.2 % Platelet Count 223 TH/MM3 228 TH/MM3 216 TH/MM3 Mean Platelet Volume 8.3 FL 8.1 FL 7.9 FL Neutrophils (%) (Auto) 92.0 % Lymphocytes (%) (Auto) 4.4 % Monocytes (%) (Auto) 3.1 % Eosinophils (%) (Auto) 0.2 % Basophils (%) (Auto) 0.3 % Neutrophils # (Auto) 6.4 TH/MM3 Lymphocytes # (Auto) 0.3 TH/MM3 Monocytes # (Auto) 0.2 TH/MM3 Eosinophils # (Auto) 0.0 TH/MM3 Basophils # (Auto) 0.0 TH/MM3 CBC Comment DIFF FINAL Differential Comment Laboratory Tests Test 02/26/18 04:20 02/26/18 14:55 02/27/18 04:00 Blood Urea Nitrogen 3 MG/DL 3 MG/DL 6 MG/DL Creatinine 0.32 MG/DL 0.35 MG/DL 0.36 MG/DL Random Glucose 84 MG/DL 112 MG/DL 128 MG/DL Calcium Level 7.5 MG/DL 7.8 MG/DL 7.4 MG/DL Sodium Level 136 MEQ/L 134 MEQ/L 134 MEQ/L Potassium Level 4.1 MEQ/L 5.0 MEQ/L 3.8 MEQ/L Chloride Level 102 MEQ/L 100 MEQ/L 99 MEQ/L Carbon Dioxide Level 27.1 MEQ/L 26.9 MEQ/L 29.7 MEQ/L Anion Gap 7 MEQ/L 7 MEQ/L 5 MEQ/L Estimat Glomerular Filtration Rate 224 ML/MIN 202 ML/MIN 196 ML/MIN Total Protein 5.1 GM/DL Phosphorus Level 2.7 MG/DL Magnesium Level 1.6 MG/DL Protein Corrected Calcium 8.5 MG/DL Microbiology Date/Time Source Procedure Growth Status 02/26/18 11:15 Wound Foot Fungal Smear Pending Received 02/26/18 11:15 Wound Foot Fungal Culture Pending Received 02/26/18 11:15 Wound Foot Acid Fast Stain Pending Received 02/26/18 11:15 Wound Foot Mycobacterial Culture Pending Received 02/26/18 11:15 Wound Foot Gram Stain - Final Resulted 02/26/18 11:15 Wound Foot Wound Culture Pending Resulted Imaging Last Impressions Chest X-Ray 02/23/18 0600 Signed Impressions: Service Date/Time: Friday, February 23, 2018 02:40 - CONCLUSION: Satisfactory chest appearance Francisco Shabazz MD Abdomen X-Ray 02/22/18 0000 Signed Impressions: Service Date/Time: Thursday, February 22, 2018 17:47 - CONCLUSION: 1. NG tip in stomach. Kevin Wells MD Lower Extremity CT 02/21/18 0000 Signed Impressions: Service Date/Time: Wednesday, February 21, 2018 17:58 - CONCLUSION: 1. Subcutaneous edema in the right lower extremity as above. No discrete abscess. No air locules to suggest gas gangrene. Kevin Wells MD Tibia/Fibula X-Ray 02/20/18 0000 Signed Impressions: Service Date/Time: Tuesday, February 20, 2018 11:01 - CONCLUSION: Soft tissue swelling and irregularity with no radiopaque foreign body. Balaji Zimmerman MD Head CT 02/20/18 0000 Signed Impressions: Service Date/Time: Tuesday, February 20, 2018 11:49 - CONCLUSION: Suboptimal exam secondary to streak and motion artifact with no evidence of hemorrhage or mass effect. Balaji Zimmerman MD Foot X-Ray 02/20/18 0000 Signed Impressions: Service Date/Time: Tuesday, February 20, 2018 11:00 - CONCLUSION: Soft tissue swelling with no radiopaque foreign body or underlying bony abnormality. Balaji Zimmerman MD Physical Exam GENERAL: This is a well-nourished, well-developed patient, in no apparent distress. SKIN: No rashes, ecchymoses or lesions. Cool and dry. HEAD: Atraumatic. Normocephalic. No temporal or scalp tenderness. EYES: Pupils equal round and reactive. No scleral icterus. No injection or drainage. ENT: Intubated. NECK: Trachea midline. Supple, nontender, no meningeal signs. CARDIOVASCULAR: Regular rate and rhythm without murmurs, gallops, or rubs. RESPIRATORY: Clear to auscultation. Breath sounds equal bilaterally. No wheezes , rales, or rhonchi. GASTROINTESTINAL: Abdomen soft, non-tender, nondistended. MUSCULOSKELETAL: Left limb no further new areas on skin noted. Chronic brown discoloration visible above wound vac area. Right foot in post op dressing. UE hand dorsum with areas of blackening and erythema and blisters noted. Tip of nose with area of blackening noted. NEUROLOGICAL: Sedated Psych cooperative IV line sites with no e.o infection. Assessment & Plan Remarks Sepsis present on admission Left leg and foot with cellulitis, abscess and gangrene. s/p BKA. Right foot heel with cellulitis and gangrene Bilateral Hand cellulitis with blisters. Bilateral LE cellulitis with blisters. Clinically looks less likely to be Necrotizing fascitis and no gas on imaging. Does not appear to be spreading beyond margins demarcated with marker. Hepatitis C Cryoglobulinemia Vasculitis : AMIE positive. IVDA Acute resp failure on vent. Penicillin allergy: rash. has tolerated Cephalosporins in past. Recs: DC Clindamycin IV DC Vanco IV DC Cefepime IV Continue Ancef IV Start Levaquin oral. Follow cultures to adjust antibiotics. follow clinically if areas on face and hands worsen consider hand surgery consult and plastics for nose. Zora Pompa MD Feb 27, 2018 10:22
--- NOTE | 2018-02-27 10:54 | PD.CAR.PN ---
CVT Progress Note Subjective/Hospital Course: 42-year-old female intubated ventilated and sedated Patient is apparently a IV drug abuser was brought in hypotensive and septic to our institution is currently under care Podiatry was consulted for evaluation of the feet and spoke with Dr. Ramos about it On exam patient has palpable bilateral femoral pulses and palpable popliteal pulses on the right side posterior tibial is palpable dorsalis pedis is by Doppler patient has multiple ulcers and necrotic areas over the right foot. On the left foot I can Doppler posterior tibial pulse and dorsalis pedis pulse but the entire foot is at this point involved in gangrene which has started from the skin down and that this time the entire foot is essentially black Fluid covered bulla and gangrenous soft tissue is going all the way down to the tendons and gangrene involves entire foot from the metatarsals, over the metatarsals to the tarsals and to the ankle and then over to the heel. Toes are spared. This is a result of multiple injections in this area and gangrenous spread. This patient clearly has inflow vessels which are open but she is perfusing a devitalized foot She needs immediate amputation patient will undergo two-stage amputation in the guillotine fashion with secondary closure in a few days. I fully agree with Dr. 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 At the same time I will debride few of these necrotic areas It should be noted that patient's blood supply to the foot was severely compromised and that vessels below the level of the knee look really diseased fibrotic and the only true viable vessel is anterior tibial 02/24/2018 Patient slightly improved Hemodynamically stable We will take him tomorrow for revision resection and closure of the left BKA stump 02/25/2018 Patient with the guillotine amputation of left leg We will take for closure tomorrow for closure of the BKA stump and debridement Today, due to scheduling conflicts and emergencies surgery had to be postponed. 02/27/2018 Status post second stage left below-knee amputation with closure and advancement of skin flap Dressing clean and dry Discussed case with Dr. Ramos and is more and more likely that patient will require amputation on the right side as well Objective: Vital Signs Date Time Temp Pulse Resp B/P (MAP) Pulse Ox O2 Delivery O2 Flow Rate FiO2 02/27/18 09:50 100 40 02/27/18 06:00 94 02/27/18 04:00 88 02/27/18 04:00 98.8 88 17 100/64 (76) 100 02/27/18 04:00 40 02/27/18 03:25 98 40 02/27/18 02:00 110 02/27/18 00:00 40 02/27/18 00:00 99.4 117 28 137/87 (104) 97 02/27/18 00:00 117 02/26/18 22:00 109 02/26/18 21:00 40 02/26/18 20:59 100 40 02/26/18 20:56 40 02/26/18 20:00 107 02/26/18 20:00 40 02/26/18 20:00 98.9 107 14 107/73 (84) 100 02/26/18 18:00 114 02/26/18 17:14 100 40 02/26/18 16:00 122 02/26/18 16:00 98.3 122 15 108/72 (84) 99 02/26/18 16:00 40 02/26/18 14:00 128 02/26/18 13:35 96 40 02/26/18 12:00 40 02/26/18 12:00 98.9 128 16 118/69 (85) 95 02/26/18 12:00 127 Labs: Laboratory Tests Test 02/27/18 04:00 02/27/18 04:59 White Blood Count 4.7 TH/MM3 (4.0-11.0) Red Blood Count 4.01 MIL/MM3 (4.00-5.30) Hemoglobin 10.4 GM/DL (11.6-15.3) Hematocrit 30.8 % (35.0-46.0) Mean Corpuscular Volume 77.0 FL (80.0-100.0) Mean Corpuscular Hemoglobin 26.0 PG (27.0-34.0) Mean Corpuscular Hemoglobin Concent 33.8 % (32.0-36.0) Red Cell Distribution Width 18.2 % (11.6-17.2) Platelet Count 216 TH/MM3 (150-450) Mean Platelet Volume 7.9 FL (7.0-11.0) Blood Urea Nitrogen 6 MG/DL (7-18) Creatinine 0.36 MG/DL (0.50-1.00) Random Glucose 128 MG/DL (74-106) Total Protein 5.1 GM/DL (6.4-8.2) Calcium Level 7.4 MG/DL (8.5-10.1) Phosphorus Level 2.7 MG/DL (2.5-4.9) Magnesium Level 1.6 MG/DL (1.5-2.5) Sodium Level 134 MEQ/L (136-145) Potassium Level 3.8 MEQ/L (3.5-5.1) Chloride Level 99 MEQ/L (98-107) Carbon Dioxide Level 29.7 MEQ/L (21.0-32.0) Anion Gap 5 MEQ/L (5-15) Estimat Glomerular Filtration Rate 196 ML/MIN (>89) Protein Corrected Calcium 8.5 MG/DL (8.5-10.1) Blood Gas Puncture Site RT RADIAL Blood Gas Patient Temperature 98.6 Blood Gas HCO3 27 mmol/L (22-26) Blood Gas Base Excess 4.3 mmol/L (-2-2) Blood Gas Oxygen Saturation 97 % (90-100) Arterial Blood pH 7.51 (7.380-7.420) Arterial Blood Partial Pressure CO2 34 mmHg (38-42) Arterial Blood Partial Pressure O2 126 mmHg (61-120) Arterial Blood Oxygen Content 14.3 Vol % (12.0-20.0) Arterial Blood Carboxyhemoglobin 0.9 % (0-4) Arterial Blood Methemoglobin 1.1 % (0-2) Blood Gas Hemoglobin 10.3 G/DL (12.0-16.0) Oxygen Delivery Device VENTILATOR Blood Gas Ventilator Setting CPAP 10/+5 PEEP Blood Gas Inspired Oxygen 40 % Result Diagram: 02/27/1839902/27/18399 David Mays MD Feb 27, 2018 10:54
--- NOTE | 2018-02-27 11:56 | HHI.CCPN ---
Subjective Remarks/Hospital Course 02/20: 42-year-old female with history of polysubstance abuse, IVDU, brought in by ambulance from a temporary [facility] facility where she is staying for evaluation of bilateral leg pain and altered mental status. One of the other residents became concerned about the patient today because of the way she was acting. They noticed several sores on her bilateral lower extremities. The patient admits to IV drug abuse, last use was yesterday. She complains of pain in her bilateral legs, however is otherwise a very poor historian writhing in bed moaning in pain. Chart review shows that the patient has been admitted for this in the past. 02/21: Sedated, easily arousable, orally intubated on mechanical ventilation. Spiked a temperature 101.5 for which Syed cultures ordered and we are initiating empiric vancomycin and Levaquin. 2-D echo ordered to evaluate heart valves. She had a normal white count this morning. Wounds or bilateral lower extremities unchanged since admission and appeared to be chronic. 02/22: T-max 99.4. Patient underwent TTE this a.m., results pending. Consultation and evaluation performed by podiatry this a.m., vascular surgery urgently consulted. Plan scheduling for left BKA today. Multiple punctate lesions, possible emboli type wounds bilateral upper and lower extremities, as well as left nare. Patient remains sedated and intubated on fentanyl and Versed infusions currently. 02/23: CPAP trials initiated today, patient tolerated for approximately 30 minutes. Tube feeds initiated Jevity 1.5. Wound VAC to left BKA with minimal drainage. Patient to receive 2 units PRBCs per vascular surgery. 02/24: Afebrile. She remains sedated and intubated. left BKA wound VAC intact. Discussion with for return to OR tomorrow for wound closure. Plan with Dr. Philipp Ramos possible debridement of right heel also schedule tentatively for tomorrow. Patient tolerating tube feeds. CPAP trials tolerated today. Patient continues on normal saline infusion with KCl@ 100cc/ hr. Plan for NPO status tonight sodium level 134. Salt Tabs added to medication regimen. 02/25: Afebrile. No acute events overnight the patient remains sedated. Plan for scheduled revision and wound closure of left BKA with Dr. Cabrera as well as debridement of right heel with Dr. Ramos. Patient continues on intermittent CPAP trials. Tolerating tube feeding. 02/26: Patient underwent revision and wound closure of left BKA, as well as debridement right heel. Posttransfusion CBC is stable. Plan initiation of CPAP trials this afternoon, plan to transition to Precedex for SBT trial in a.m. for possible extubation secondary to high opioid requirements secondary to history of polysubstance abuse.PO narcotics added to medication regimen. IV fluids discontinued. 02/27: Currently tolerating CPAP 10/5, reduce pressure support of 5 if tolerated for 45 minutes get weaning parameters with possible extubation. Otherwise minimize sedation. Status post second stage left below-knee amputation. May need right-sided amputation also per Dr. Holder's note Objective Vital Signs Date Time Temp Pulse Resp B/P (MAP) Pulse Ox O2 Delivery O2 Flow Rate FiO2 02/27/18 09:50 100 40 02/27/18 06:00 94 02/27/18 04:00 98.8 17 100/64 (76) Intake and Output 02/27/18 02/27/18 02/28/18 08:00 16:00 00:00 Intake Total 950 ml Output Total 1300 ml Balance -350 ml Result Diagram: 02/27/18 0400 02/27/18 0400 Other Results Laboratory Tests Test 02/27/18 04:59 Blood Gas Puncture Site RT RADIAL Blood Gas Patient Temperature 98.6 Blood Gas HCO3 27 mmol/L (22-26) Blood Gas Base Excess 4.3 mmol/L (-2-2) Blood Gas Oxygen Saturation 97 % (90-100) Arterial Blood pH 7.51 (7.380-7.420) Arterial Blood Partial Pressure CO2 34 mmHg (38-42) Arterial Blood Partial Pressure O2 126 mmHg (61-120) Arterial Blood Oxygen Content 14.3 Vol % (12.0-20.0) Arterial Blood Carboxyhemoglobin 0.9 % (0-4) Arterial Blood Methemoglobin 1.1 % (0-2) Blood Gas Hemoglobin 10.3 G/DL (12.0-16.0) Oxygen Delivery Device VENTILATOR Blood Gas Ventilator Setting CPAP 10/+5 PEEP Blood Gas Inspired Oxygen 40 % Imaging Last Impressions Chest X-Ray 02/25/18 0600 Signed Impressions: Service Date/Time: Sunday, February 25, 2018 04:27 - CONCLUSION: Lungs clear. Line and tubes remain in place. Martín Lambert MD Abdomen X-Ray 02/22/18 0000 Signed Impressions: Service Date/Time: Thursday, February 22, 2018 17:47 - CONCLUSION: 1. NG tip in stomach. Kevin Wells MD Lower Extremity CT 02/21/18 0000 Signed Impressions: Service Date/Time: Wednesday, February 21, 2018 17:58 - CONCLUSION: 1. Subcutaneous edema in the right lower extremity as above. No discrete abscess. No air locules to suggest gas gangrene. Kevin Wells MD Tibia/Fibula X-Ray 02/20/18 0000 Signed Impressions: Service Date/Time: Tuesday, February 20, 2018 11:01 - CONCLUSION: Soft tissue swelling and irregularity with no radiopaque foreign body. Balaji Zimmerman MD Head CT 02/20/18 0000 Signed Impressions: Service Date/Time: Tuesday, February 20, 2018 11:49 - CONCLUSION: Suboptimal exam secondary to streak and motion artifact with no evidence of hemorrhage or mass effect. Balaji Zimmerman MD Foot X-Ray 02/20/18 0000 Signed Impressions: Service Date/Time: Tuesday, February 20, 2018 11:00 - CONCLUSION: Soft tissue swelling with no radiopaque foreign body or underlying bony abnormality. Balaji Zimmerman MD Last Impressions Chest X-Ray 02/23/18 0600 Signed Impressions: Service Date/Time: Friday, February 23, 2018 02:40 - CONCLUSION: Satisfactory chest appearance Francisco Shabazz MD Abdomen X-Ray 02/22/18 0000 Signed Impressions: Service Date/Time: Thursday, February 22, 2018 17:47 - CONCLUSION: 1. NG tip in stomach. Kevin Wells MD Lower Extremity CT 02/21/18 0000 Signed Impressions: Service Date/Time: Wednesday, February 21, 2018 17:58 - CONCLUSION: 1. Subcutaneous edema in the right lower extremity as above. No discrete abscess. No air locules to suggest gas gangrene. Kevin Wells MD Tibia/Fibula X-Ray 02/20/18 0000 Signed Impressions: Service Date/Time: Tuesday, February 20, 2018 11:01 - CONCLUSION: Soft tissue swelling and irregularity with no radiopaque foreign body. Balaji Zimmerman MD Head CT 02/20/18 0000 Signed Impressions: Service Date/Time: Tuesday, February 20, 2018 11:49 - CONCLUSION: Suboptimal exam secondary to streak and motion artifact with no evidence of hemorrhage or mass effect. Balaji Zimmerman MD Foot X-Ray 02/20/18 0000 Signed Impressions: Service Date/Time: Tuesday, February 20, 2018 11:00 - CONCLUSION: Soft tissue swelling with no radiopaque foreign body or underlying bony abnormality. Balaji Zimmerman MD Last Impressions Chest X-Ray 02/20/18 1010 Signed Impressions: Service Date/Time: Tuesday, February 20, 2018 10:57 - CONCLUSION: No acute disease. Balaji Zimmerman MD Tibia/Fibula X-Ray 02/20/18 0000 Signed Impressions: Service Date/Time: Tuesday, February 20, 2018 11:01 - CONCLUSION: Soft tissue swelling and irregularity with no radiopaque foreign body. Balaji Zimmerman MD Head CT 02/20/18 0000 Signed Impressions: Service Date/Time: Tuesday, February 20, 2018 11:49 - CONCLUSION: Suboptimal exam secondary to streak and motion artifact with no evidence of hemorrhage or mass effect. Balaji Zimmerman MD Foot X-Ray 02/20/18 0000 Signed Impressions: Service Date/Time: Tuesday, February 20, 2018 11:00 - CONCLUSION: Soft tissue swelling with no radiopaque foreign body or underlying bony abnormality. Balaji Zimmerman MD Procedures 02/22 left BKA 02/26 revision and wound closure left BKA and right heel debridement Objective Remarks Physical exam GENERAL: Well-developed, cachectic appearing, orally intubated on mechanical ventilation, lying in bed. SKIN: Several wounds/ulcerations to bilateral lower extremities with surrounding ecchymosis, no purulent drainage, no crepitus, no fluctuance or induration. s/p L BKA HEAD: Atraumatic. Normocephalic. EYES: Pupils equal and round, 3 mm, reactive to light. ENT: Mucous membranes pink and dry. NECK: Trachea midline. No JVD. No nuchal rigidity. CARDIOVASCULAR: S1-S2 regular, no gallop or murmur. No murmur appreciated. RESPIRATORY: Orally intubated on mechanical ventilation. Clear to auscultation. Breath sounds equal bilaterally. GASTROINTESTINAL: Abdomen soft, non-tender, nondistended. MUSCULOSKELETAL: Skin exam as above s/p L BKA. Multiple large blistering right lower extremities wounds. Multiple petechiae bilateral hands with blistering NEUROLOGICAL: Sedated with Precedex and Fentanyl, orally intubated on mechanical ventilation, pupils 3 mm bilaterally reactive, follows commands on lightening sedation. Motor grossly within normal limits. A/P Assessment and Plan Assessment 42 year old female: Acute respiratory failure on mechanical ventilation Encephalopathy secondary to substance abuse Hyponatremia Polysubstance abuse positive for amphetamines, cocaine, benzodiazepine, opioids Fever with suspected sepsis Left LLE with cellulitis, abscess and gangrene. s/p BKA. History of IV drug use Sinus Tachycardia Uncontrolled hypertension Hypoalbuminemia Malnutrition Postoperative pain Plan: Neuro: Sedation with Precedex/fentanyl gtt. Daily sedation vacation. Ativan when necessary for agitation. Rosebud every 4 hours as needed for pain control status post BKA Rosebud 10-325 q 6hr Cardiovascular: Lopressor 2.5 mg IV every 6 hourly for tachycardia with labetalol 10 mg IV every 4 hourly when necessary for hypertension. Discontinue Continue normal saline with 20 of K at 100 cc/hr. 4/3 2-D echo EF 25-30% Pulmonary: Mechanical ventilation Bronchodilators when necessary Maintain O2 sat greater than 92% CPAP trials with possible extubation GI/liver: Jevity 1.5 with a goal rate of 45 cc/hr-minimal residual Currently n.p.o. for possible extubation Renal/: IV hydration, strict intake output, monitor and replete electrolytes, follow BUN /creatinine. 4/5 Salt tab 1 GM daily ID: ID following, antibiotics were narrowed to Levaquin only. Status post left BKA which will give source control Wound care consulted for lower extremity leg wounds. Wound culture-staph aureus Sputum culture-Klebsiella Endocrine: Watch for hyperglycemia, SSI for glycemic control if needed. Heme: Follow CBC. Transfuse for hemoglobin less than 8 Msk: Vascular surgery following , S/P staged left BKA. Prophylaxis:SQ Heparin placed on hold for impending surgery-receiving 24 hour, SCDs for DVT prophylaxis deferred to vascular surgery Level 3 followup D/W DIRECTOR OF OPERATIONS HOME HEALTH and RT Ramirez Singh MD Feb 27, 2018 11:56
[2018-02-27] MEDS: ACETAMINOPHEN/HYDROcodone 325 MG/10 MG TAB PO PRN ×2 (14:31→20:07)
[2018-02-28] VITALS (12 sets, daily range): BP systolic 139–164; BP diastolic 92–125; PULSE 90–122; RESP 27–39; TEMP 98.5–98.9; O2SAT 96–100
[2018-02-28] MEDS: ACETAMINOPHEN/HYDROcodone 325 MG/10 MG TAB PO PRN ×3 (02:05→22:14)
[2018-02-28] MEDS: HEPARIN SODIUM - SQ 10,000 UNITS/ML VIAL SQ SCH ×2 (04:00→15:52)
[2018-02-28] MEDS: CHLORHEXIDINE GLUCONATE 2 % 1 PACK (2 CLOTHS) TOP SCH (04:00)
[2018-02-28] MEDS: CEFAZOLIN INJ 2,000 MG in SODIUM CHLORIDE 0.9% INJ 100 ML IV SCH ×3 (04:33→21:27)
[2018-02-28 06:46] LABS: INTERNATIONAL NORMALIZED RATIO 1.1 RATIO; PROTHROMBIN TIME - PATIENT 11.2 SEC (9.8-11.6)
[2018-02-28 07:01] LABS: AUTOMATED NEUTROPHIL # 4.6 TH/MM3 (1.8-7.7); BASOPHIL % 0.2 % (0.0-2.0); EOSINOPHIL % 0.5 % (0.0-4.0); HEMATOCRIT 34.2 % (35.0-46.0); HEMOGLOBIN 11.7 GM/DL (11.6-15.3); LYMPH % 15.1 % (9.0-44.0); LYMPHOCYTE # 0.9 TH/MM3 (1.0-4.8); MEAN CELL VOLUME 75.8 FL (80.0-100.0); MEAN CORPUSCULAR HEMOGLOBIN 25.8 PG (27.0-34.0); MEAN CORPUSCULAR HGB CONC 34.1 % (32.0-36.0); MEAN PLATELET VOLUME 8.3 FL (7.0-11.0); MONO % 8.9 % (0.0-8.0); MONOCYTE # 0.5 TH/MM3 (0-0.9); NEUT % 75.3 % (16.0-70.0); PLATELET COUNT 254 TH/MM3 (150-450); RED BLOOD COUNT 4.51 MIL/MM3 (4.00-5.30); RED CELL DISTRIBUTION WIDTH 18.3 % (11.6-17.2); WHITE BLOOD COUNT 6.1 TH/MM3 (4.0-11.0)
[2018-02-28 07:26] LABS: ALBUMIN 2.3 GM/DL (3.4-5.0); ALKALINE PHOSPHATASE 112 U/L (45-117); ALT (GPT) 43 U/L (10-53); AST (GOT) 161 U/L (15-37); BICARBONATE 26.2 MEQ/L (21.0-32.0); BLOOD UREA NITROGEN 3 MG/DL (7-18); CALCIUM 8.2 MG/DL (8.5-10.1); CHLORIDE 87 MEQ/L (98-107); CREATININE 0.34 MG/DL (0.50-1.00); GLOMERULAR FILTRATION RATE 209 ML/MIN (>89); GLUCOSE,RANDOM 102 MG/DL (74-106); MAGNESIUM 1.7 MG/DL (1.5-2.5); PHOSPHORUS 1.7 MG/DL (2.5-4.9); SODIUM (NA) 128 MEQ/L (136-145); TOTAL BILIRUBIN ADULT 0.6 MG/DL (0.2-1.0); TOTAL PROTEIN 6.8 GM/DL (6.4-8.2)
[2018-02-28] MEDS ORDERED: DEXTROSE 50% IN WATER 50 ML VIAL(D50) IV PUSH PRN (08:45)
[2018-02-28] MEDS ORDERED: GLUCAGON 1 MG/ML VIAL OTHER PRN (08:45)
--- NOTE | 2018-02-28 08:50 | HHI.CCPN ---
Subjective Remarks/Hospital Course 02/20: 42-year-old female with history of polysubstance abuse, IVDU, brought in by ambulance from a temporary detention/living facility where she is staying for evaluation of bilateral leg pain and altered mental status. One of the other residents became concerned about the patient today because of the way she was acting. They noticed several sores on her bilateral lower extremities. The patient admits to IV drug abuse, last use was yesterday. She complains of pain in her bilateral legs, however is otherwise a very poor historian writhing in bed moaning in pain. Chart review shows that the patient has been admitted for this in the past. 02/21: Sedated, easily arousable, orally intubated on mechanical ventilation. Spiked a temperature 101.5 for which Syed cultures ordered and we are initiating empiric vancomycin and Levaquin. 2-D echo ordered to evaluate heart valves. She had a normal white count this morning. Wounds or bilateral lower extremities unchanged since admission and appeared to be chronic. 02/22: T-max 99.4. Patient underwent TTE this a.m., results pending. Consultation and evaluation performed by podiatry this a.m., vascular surgery urgently consulted. Plan scheduling for left BKA today. Multiple punctate lesions, possible emboli type wounds bilateral upper and lower extremities, as well as left nare. Patient remains sedated and intubated on fentanyl and Versed infusions currently. 02/23: CPAP trials initiated today, patient tolerated for approximately 30 minutes. Tube feeds initiated Jevity 1.5. Wound VAC to left BKA with minimal drainage. Patient to receive 2 units PRBCs per vascular surgery. 02/24: Afebrile. She remains sedated and intubated. left BKA wound VAC intact. Discussion with for return to OR tomorrow for wound closure. Plan with Dr. Philipp Ramos possible debridement of right heel also schedule tentatively for tomorrow. Patient tolerating tube feeds. CPAP trials tolerated today. Patient continues on normal saline infusion with KCl@ 100cc/ hr. Plan for NPO status tonight sodium level 134. Salt Tabs added to medication regimen. 02/25: Afebrile. No acute events overnight the patient remains sedated. Plan for scheduled revision and wound closure of left BKA with Dr. Cabrera as well as debridement of right heel with Dr. Ramos. Patient continues on intermittent CPAP trials. Tolerating tube feeding. 02/26: Patient underwent revision and wound closure of left BKA, as well as debridement right heel. Posttransfusion CBC is stable. Plan initiation of CPAP trials this afternoon, plan to transition to Precedex for SBT trial in a.m. for possible extubation secondary to high opioid requirements secondary to history of polysubstance abuse.PO narcotics added to medication regimen. IV fluids discontinued. 02/27: Currently tolerating CPAP 10/5, reduce pressure support of 5 if tolerated for 45 minutes get weaning parameters with possible extubation. Otherwise minimize sedation. Status post second stage left below-knee amputation. May need right-sided amputation also per Dr. Holder's note 02/28 Patient s/p extubation yesterday on room air oxygen when seen, afebrile. On no drips Objective Vital Signs Date Time Temp Pulse Resp B/P (MAP) Pulse Ox O2 Delivery O2 Flow Rate FiO2 02/28/18 06:00 96 02/28/18 04:00 98.9 30 145/99 (114) 96 02/27/18 09:50 40 Intake and Output 02/28/18 02/28/18 03/01/18 08:00 16:00 00:00 Intake Total 120 ml Output Total 5325 ml Balance -5205 ml Result Diagram: 02/28/1860402/28/18 06 Other Results Laboratory Tests Test 02/28/18 06:05 White Blood Count 6.1 TH/MM3 Red Blood Count 4.51 MIL/MM3 Hemoglobin 11.7 GM/DL Hematocrit 34.2 % Mean Corpuscular Volume 75.8 FL Mean Corpuscular Hemoglobin 25.8 PG Mean Corpuscular Hemoglobin Concent 34.1 % Red Cell Distribution Width 18.3 % Platelet Count 254 TH/MM3 Mean Platelet Volume 8.3 FL Neutrophils (%) (Auto) 75.3 % Lymphocytes (%) (Auto) 15.1 % Monocytes (%) (Auto) 8.9 % Eosinophils (%) (Auto) 0.5 % Basophils (%) (Auto) 0.2 % Neutrophils # (Auto) 4.6 TH/MM3 Lymphocytes # (Auto) 0.9 TH/MM3 Monocytes # (Auto) 0.5 TH/MM3 Eosinophils # (Auto) 0.0 TH/MM3 Basophils # (Auto) 0.0 TH/MM3 CBC Comment DIFF FINAL Differential Comment Prothrombin Time 11.2 SEC Prothromb Time International Ratio 1.1 RATIO Blood Urea Nitrogen 3 MG/DL Creatinine 0.34 MG/DL Random Glucose 102 MG/DL Total Protein 6.8 GM/DL Albumin 2.3 GM/DL Calcium Level 8.2 MG/DL Phosphorus Level 1.7 MG/DL Magnesium Level 1.7 MG/DL Alkaline Phosphatase 112 U/L Aspartate Amino Transf (AST/SGOT) 161 U/L Alanine Aminotransferase (ALT/SGPT) 43 U/L Total Bilirubin 0.6 MG/DL Sodium Level 128 MEQ/L Potassium Level 2.5 MEQ/L Chloride Level 87 MEQ/L Carbon Dioxide Level 26.2 MEQ/L Anion Gap 15 MEQ/L Estimat Glomerular Filtration Rate 209 ML/MIN Imaging Last Impressions Chest X-Ray 02/27/18 0600 Signed Impressions: Service Date/Time: Tuesday, February 27, 2018 03:52 - CONCLUSION: New medial left lung base consolidation versus atelectasis and small pleural effusion. Martín Lambert MD Abdomen X-Ray 02/22/18 0000 Signed Impressions: Service Date/Time: Thursday, February 22, 2018 17:47 - CONCLUSION: 1. NG tip in stomach. Kevin Wells MD Lower Extremity CT 02/21/18 0000 Signed Impressions: Service Date/Time: Wednesday, February 21, 2018 17:58 - CONCLUSION: 1. Subcutaneous edema in the right lower extremity as above. No discrete abscess. No air locules to suggest gas gangrene. Kevin Wells MD Tibia/Fibula X-Ray 02/20/18 0000 Signed Impressions: Service Date/Time: Tuesday, February 20, 2018 11:01 - CONCLUSION: Soft tissue swelling and irregularity with no radiopaque foreign body. Balaji Zimmerman MD Head CT 02/20/18 0000 Signed Impressions: Service Date/Time: Tuesday, February 20, 2018 11:49 - CONCLUSION: Suboptimal exam secondary to streak and motion artifact with no evidence of hemorrhage or mass effect. Balaji Zimmerman MD Foot X-Ray 02/20/18 0000 Signed Impressions: Service Date/Time: Tuesday, February 20, 2018 11:00 - CONCLUSION: Soft tissue swelling with no radiopaque foreign body or underlying bony abnormality. Balaji Zimmerman MD Procedures 02/22 left BKA 02/26 revision and wound closure left BKA and right heel debridement Objective Remarks Physical exam GENERAL: Well-developed, cachectic appearing lying in bed in NAD SKIN: Several wounds/ulcerations to bilateral lower extremities with surrounding ecchymosis, no purulent drainage, no crepitus, no fluctuance or induration. s/p L BKA HEAD: Atraumatic. Normocephalic. EYES: Pupils equal and round, 3 mm, reactive to light. ENT: Mucous membranes pink and dry. NECK: Trachea midline. No JVD. No nuchal rigidity. CARDIOVASCULAR: S1-S2 regular, no gallop or murmur. No murmur appreciated. RESPIRATORY: Orally intubated on mechanical ventilation. Clear to auscultation. Breath sounds equal bilaterally. GASTROINTESTINAL: Abdomen soft, non-tender, nondistended. MUSCULOSKELETAL: Skin exam as above s/p L BKA. Multiple large blistering right lower extremities wounds. Multiple petechiae bilateral hands with blistering NEUROLOGICAL: Awake and alert A/P Assessment and Plan Assessment 42 year old female: Acute respiratory failure on mechanical ventilation Encephalopathy secondary to substance abuse Hyponatremia Polysubstance abuse positive for amphetamines, cocaine, benzodiazepine, opioids Fever with suspected sepsis Left LLE with cellulitis, abscess and gangrene. s/p BKA. History of IV drug use Sinus Tachycardia Uncontrolled hypertension Hypoalbuminemia Malnutrition Postoperative pain Plan: Neuro: Monitor neuro status, awake and alert. UDS: Cocaine, Amphetamines, Opiates, Benzos Huntington every 4 hours as needed for pain control status post BKA Huntington 10-325 q 6hr 1145: Patient had seizure episode per nursing staff now postictal Will place on Keppra, check EEG, CT brain and consult Neuro Cardiovascular: Monitor HR and BP keep MAP>65mmHg Place on Lisinopril 5mg daily. On Lopressor/Labetalol IV PRN 02/22 2-D echo EF 25-30% Pulmonary: Oxygen PRN keep SATs >92% Bronchodilators GI/liver: Speech eval, diet per speech Elevated AST, check US liver and Hepatitis profile. Renal/: Monitor renal function, I/O's, electrolytes replacement per protocol. Place on NS@84ml/hr ID: ID following, on Cefazolin and Levaquin Status post left BKA Wound care consulted for lower extremity leg wounds. Wound culture-staph aureus Sputum culture-Klebsiella Check C-diff PCR Endocrine: Watch for hyperglycemia, SSI for glycemic control if needed. Heme: Follow CBC. Transfuse for hemoglobin less than 8 Msk: Vascular surgery following , S/P left BKA. Prophylaxis:SQ Heparin, SCDs for DVT prophylaxis , on Pepcid for GI prophylaxis Level 3 Louie Siddiqui MD Feb 28, 2018 08:50
[2018-02-28] MEDS: LISINOPRIL 5 MG TAB PO SCH (09:00)
[2018-02-28] MEDS: SODIUM CHLORIDE 1 GRAM TAB PO SCH (09:00)
[2018-02-28] MEDS: SODIUM CHLOR 0.9% 1000 ML INJ 1,000 ML IV SCH ×2 (09:00→21:32)
[2018-02-28] MEDS: SODIUM CHLORIDE 0.9% FLUSH 10 ML FLUSH IV FLUSH SCH ×2 (09:00→21:33)
[2018-02-28] MEDS: DOCUSATE SODIUM 50 MG/SENNA 8.6 MG TAB PO SCH ×2 (09:00→21:27)
[2018-02-28] MEDS: INSULIN NovoLIN REGULAR SUPPLEMENTAL SCALE SQ SCH ×3 (10:00→22:00)
[2018-02-28] MEDS: LEVOFLOXACIN 500 MG TAB PO SCH (11:00)
--- NOTE | 2018-02-28 12:03 | RADRPT ---
EXAM DATE/TIME: 02/28/2018 09:14 [facility] COMPARISON: No previous studies available for comparison. INDICATIONS : Increased lab values. MEDICAL HISTORY : Crohn's disease. Hepatitis C. Dentures. Asthma. Anxiety. Claustrophobia. Cervical cancer. Measles. SURGICAL HISTORY : Hysterectomy. Exploratory laproscopy procedure. ENCOUNTER: Initial ACUITY: 1 day PAIN SCORE: Nonresponsive. LOCATION: Right upper quadrant MEASUREMENTS: LIVER: 17.0 cm length COMMON DUCT: 3 mm RIGHT KIDNEY: 11.0 x 5.6 x 4.0 cm SPLEEN: 9.2 cm length FINDINGS: The liver is normal in size and free of focal defects. The right kidney is echogenic characteristic o f medical renal disease. Small amount of fluid is present in a pattern renal fossa. Sludge is present within the gallbladder. No gallstones are identified. The pancreas demonstrates no evidence of mass and there is no dilatation of the pancreatic duct. CONCLUSION: 1. Gallbladder sludge 2. Medical renal disease Floyd Villatoro MD on February 28, 2018 at 11:59 Board Certified Radiologist. This report was verified electronically.
--- NOTE | 2018-02-28 12:55 | RADRPT ---
EXAM DATE/TIME: 02/28/2018 12:31 [facility] COMPARISON: CT BRAIN W/O CONTRAST, February 20, 2018, 11:49. INDICATIONS : Seizure. RADIATION DOSE: 56.35 CTDIvol (mGy) MEDICAL HISTORY : Hepatitis C. Cervical cancer, asthma. SURGICAL HISTORY : Hysterectomy. ENCOUNTER: Initial ACUITY: 1 day PAIN SCALE: Non-responsive LOCATION: cranial TECHNIQUE: Multiple contiguous axial images were obtained of the head. Using automated exposure control and adj ustment of the mA and/or kV according to patient size, radiation dose was kept as low as reasonably a chievable to obtain optimal diagnostic quality images. DICOM format image data is available electro nically for review and comparison. FINDINGS: CEREBRUM: The ventricles are normal for age. No evidence of midline shift, mass lesion, hemorrhage or acute in farction. No extra-axial fluid collections are seen. POSTERIOR FOSSA: The cerebellum and brainstem are intact. The 4th ventricle is midline. The cerebellopontine angle i s unremarkable. EXTRACRANIAL: The visualized portion of the orbits is intact. Air is seen within the soft tissues posterior and lat eral to the right maxillary sinus. SKULL: The calvaria is intact. No evidence of skull fracture. CONCLUSION: 1. No intracranial abnormalities seen. 2. Air within the soft tissues adjacent to the posterior and lateral aspects of the right maxillary s inus. Francisco Figueroa MD on February 28, 2018 at 12:51 Board Certified Radiologist. This report was verified electronically.
[2018-02-28] MEDS ORDERED: LORazepam 2 MG/ML VIAL IV PUSH PRN (13:00)
[2018-02-28] MEDS: MAGNESIUM SULFATE 1 GM PREMIX 100 ML IV SCH ×2 (13:04→18:37)
[2018-02-28] MEDS: levETIRAcetam INJ 500 MG in SODIUM CHLORIDE 0.9% INJ 100 ML IV SCH (13:04)
--- NOTE | 2018-02-28 15:16 | PD.CAR.PN ---
CVT Progress Note Subjective/Hospital Course: 42-year-old female intubated ventilated and sedated Patient is apparently a IV drug abuser was brought in hypotensive and septic to our institution is currently under care Podiatry was consulted for evaluation of the feet and spoke with Dr. Ramos about it On exam patient has palpable bilateral femoral pulses and palpable popliteal pulses on the right side posterior tibial is palpable dorsalis pedis is by Doppler patient has multiple ulcers and necrotic areas over the right foot. On the left foot I can Doppler posterior tibial pulse and dorsalis pedis pulse but the entire foot is at this point involved in gangrene which has started from the skin down and that this time the entire foot is essentially black Fluid covered bulla and gangrenous soft tissue is going all the way down to the tendons and gangrene involves entire foot from the metatarsals, over the metatarsals to the tarsals and to the ankle and then over to the heel. Toes are spared. This is a result of multiple injections in this area and gangrenous spread. This patient clearly has inflow vessels which are open but she is perfusing a devitalized foot She needs immediate amputation patient will undergo two-stage amputation in the guillotine fashion with secondary closure in a few days. I fully agree with Dr. 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 At the same time I will debride few of these necrotic areas It should be noted that patient's blood supply to the foot was severely compromised and that vessels below the level of the knee look really diseased fibrotic and the only true viable vessel is anterior tibial 02/24/2018 Patient slightly improved Hemodynamically stable We will take him tomorrow for revision resection and closure of the left BKA stump 02/25/2018 Patient with the guillotine amputation of left leg We will take for closure tomorrow for closure of the BKA stump and debridement Today, due to scheduling conflicts and emergencies surgery had to be postponed. 02/27/2018 Status post second stage left below-knee amputation with closure and advancement of skin flap Dressing clean and dry Discussed case with Dr. Ramos and is more and more likely that patient will require amputation on the right side as well 02/28/2018 Status post BKA closure. Dressing intact clean We will keep dressing on until tomorrow and then remove Patient might need right below-knee amputation in the future, depending on how the debrided areas heal Objective: Vital Signs Date Time Temp Pulse Resp B/P (MAP) Pulse Ox O2 Delivery O2 Flow Rate FiO2 02/28/18 14:00 122 02/28/18 12:00 98.6 122 164/125 (138) 02/28/18 12:00 96 02/28/18 10:00 96 02/28/18 08:00 98.6 109 151/94 (113) 02/28/18 08:00 96 02/28/18 06:00 96 02/28/18 04:00 104 02/28/18 04:00 98.9 104 30 145/99 (114) 96 02/28/18 02:00 109 02/28/18 00:00 114 02/28/18 00:00 98.8 114 27 141/100 (114) 100 02/27/18 22:00 92 02/27/18 20:00 111 02/27/18 20:00 111 26 154/92 (112) 96 02/27/18 19:30 107 21 143/97 (112) 02/27/18 19:00 106 24 157/103 (121) 02/27/18 18:30 104 18 145/96 (112) 02/27/18 18:00 106 02/27/18 18:00 106 20 140/93 (109) 02/27/18 17:30 106 20 151/91 (111) 02/27/18 17:00 106 23 148/93 (111) 99 02/27/18 16:30 125 36 167/94 (118) 86 02/27/18 16:00 106 02/27/18 16:00 99.2 106 25 142/86 (104) 97 02/27/18 16:00 106 02/27/18 16:00 16 Labs: Laboratory Tests Test 02/28/18 06:05 White Blood Count 6.1 TH/MM3 (4.0-11.0) Red Blood Count 4.51 MIL/MM3 (4.00-5.30) Hemoglobin 11.7 GM/DL (11.6-15.3) Hematocrit 34.2 % (35.0-46.0) Mean Corpuscular Volume 75.8 FL (80.0-100.0) Mean Corpuscular Hemoglobin 25.8 PG (27.0-34.0) Mean Corpuscular Hemoglobin Concent 34.1 % (32.0-36.0) Red Cell Distribution Width 18.3 % (11.6-17.2) Platelet Count 254 TH/MM3 (150-450) Mean Platelet Volume 8.3 FL (7.0-11.0) Neutrophils (%) (Auto) 75.3 % (16.0-70.0) Lymphocytes (%) (Auto) 15.1 % (9.0-44.0) Monocytes (%) (Auto) 8.9 % (0.0-8.0) Eosinophils (%) (Auto) 0.5 % (0.0-4.0) Basophils (%) (Auto) 0.2 % (0.0-2.0) Neutrophils # (Auto) 4.6 TH/MM3 (1.8-7.7) Lymphocytes # (Auto) 0.9 TH/MM3 (1.0-4.8) Monocytes # (Auto) 0.5 TH/MM3 (0-0.9) Eosinophils # (Auto) 0.0 TH/MM3 (0-0.4) Basophils # (Auto) 0.0 TH/MM3 (0-0.2) CBC Comment DIFF FINAL Differential Comment Prothrombin Time 11.2 SEC (9.8-11.6) Prothromb Time International Ratio 1.1 RATIO Blood Urea Nitrogen 3 MG/DL (7-18) Creatinine 0.34 MG/DL (0.50-1.00) Random Glucose 102 MG/DL (74-106) Total Protein 6.8 GM/DL (6.4-8.2) Albumin 2.3 GM/DL (3.4-5.0) Calcium Level 8.2 MG/DL (8.5-10.1) Phosphorus Level 1.7 MG/DL (2.5-4.9) Magnesium Level 1.7 MG/DL (1.5-2.5) Alkaline Phosphatase 112 U/L (45-117) Aspartate Amino Transf (AST/SGOT) 161 U/L (15-37) Alanine Aminotransferase (ALT/SGPT) 43 U/L (10-53) Total Bilirubin 0.6 MG/DL (0.2-1.0) Sodium Level 128 MEQ/L (136-145) Potassium Level 2.5 MEQ/L (3.5-5.1) Chloride Level 87 MEQ/L (98-107) Carbon Dioxide Level 26.2 MEQ/L (21.0-32.0) Anion Gap 15 MEQ/L (5-15) Estimat Glomerular Filtration Rate 209 ML/MIN (>89) Result Diagram: 02/28/1805 02/28/18 0605 David Mays MD Feb 28, 2018 15:16
[2018-02-28] MEDS ORDERED: MORPHINE SULFATE 2 MG/ML SYRINGE IV PUSH ONE (16:45)
[2018-02-28] MEDS: FAMOTIDINE 40 MG/5 ML LIQ 50 ML BTL NG SCH ×2 (18:27→21:27)
[2018-02-28] MEDS: LORazepam 2 MG/ML VIAL IV PUSH PRN (19:56)
--- NOTE | 2018-02-28 20:45 | MG ---
cc: Hai Hansen MD EEG RECORD NUMBER: [id number] A 42-year-old, history of seizure, noted constantly moving throughout the EEG recording. Background showed 6-8 Hz activity, 20-50 microvolts with admixed theta, frequent movement artifact, polyfrequencies, asynchrony noted. Head movement, blink artifact, extremity movements resulting in artifact. Limited driving with photic stimulation. Good EEG variability and reactivity. Single lead EKG. Initial sinus rhythm. INTERPRETATION: Moderate artifact related to constant patient movement with underlying probable, at least mild degree, of encephalopathy. No clear epileptic activity. Clinical correlation. Hai Hansen MD MG/SB , 08:13 PM , 08:44 PM
[2018-02-28] MEDS: CHLORHEXIDINE 0.12% (ORAL KIT) 15 ML CUP MT SCH ×2 (21:26→21:33)
[2018-02-28] MEDS: METOPROLOL TARTRATE 5 MG/5 ML VIAL IV PUSH PRN (21:45)
[2018-02-28] MEDS: LABETALOL HCL 100 MG/20 ML VIAL IV PUSH PRN (22:08)
[2018-02-28 23:54] LABS: CRYOGLOBULIN QUALITATIVE POSITIVE (NEGATIVE)
[2018-03-01] VITALS (13 sets, daily range): BP systolic 138–160; BP diastolic 104–119; PULSE 90–113; RESP 34–60; TEMP 97.9–98.4; O2SAT 100
[2018-03-01] MEDS: levETIRAcetam INJ 500 MG in SODIUM CHLORIDE 0.9% INJ 100 ML IV SCH ×2 (00:05→14:53)
[2018-03-01] MEDS: LORazepam 2 MG/ML VIAL IV PUSH PRN ×5 (00:06→20:37)
[2018-03-01] MEDS: POTASSIUM CHLOR 20 MEQ PREMIX 100 ML IV PRN ×2 (01:34→03:39)
[2018-03-01] MEDS: HEPARIN SODIUM - SQ 10,000 UNITS/ML VIAL SQ SCH (03:37)
[2018-03-01] MEDS: CEFAZOLIN INJ 2,000 MG in SODIUM CHLORIDE 0.9% INJ 100 ML IV SCH ×3 (03:37→22:04)
[2018-03-01] MEDS: CHLORHEXIDINE GLUCONATE 2 % 1 PACK (2 CLOTHS) TOP SCH (03:37)
[2018-03-01] MEDS: METOPROLOL TARTRATE 5 MG/5 ML VIAL IV PUSH PRN ×2 (03:38→21:51)
[2018-03-01] MEDS: INSULIN NovoLIN REGULAR SUPPLEMENTAL SCALE SQ SCH ×4 (04:00→22:00)
[2018-03-01 06:08] LABS: AUTOMATED NEUTROPHIL # 3.5 TH/MM3 (1.8-7.7); BASOPHIL % 0.6 % (0.0-2.0); EOSINOPHIL # 0.1 TH/MM3 (0-0.4); EOSINOPHIL % 1.5 % (0.0-4.0); HEMATOCRIT 35.6 % (35.0-46.0); HEMOGLOBIN 12.3 GM/DL (11.6-15.3); LYMPH % 27.4 % (9.0-44.0); LYMPHOCYTE # 1.7 TH/MM3 (1.0-4.8); MEAN CELL VOLUME 75.5 FL (80.0-100.0); MEAN CORPUSCULAR HGB CONC 34.4 % (32.0-36.0); MONO % 13.1 % (0.0-8.0); MONOCYTE # 0.8 TH/MM3 (0-0.9); NEUT % 57.4 % (16.0-70.0); PLATELET COUNT 297 TH/MM3 (150-450); RED BLOOD COUNT 4.72 MIL/MM3 (4.00-5.30); RED CELL DISTRIBUTION WIDTH 17.8 % (11.6-17.2); WHITE BLOOD COUNT 6.1 TH/MM3 (4.0-11.0)
[2018-03-01 06:42] LABS: ALBUMIN 2.4 GM/DL (3.4-5.0); ALKALINE PHOSPHATASE 109 U/L (45-117); ALT (GPT) 44 U/L (10-53); AST (GOT) 94 U/L (15-37); BICARBONATE 21.6 MEQ/L (21.0-32.0); BLOOD UREA NITROGEN 4 MG/DL (7-18); CALCIUM 8.2 MG/DL (8.5-10.1); CHLORIDE 87 MEQ/L (98-107); CREATININE 0.28 MG/DL (0.50-1.00); GLOMERULAR FILTRATION RATE 262 ML/MIN (>89); GLUCOSE,RANDOM 76 MG/DL (74-106); MAGNESIUM 1.7 MG/DL (1.5-2.5); PHOSPHORUS 1.6 MG/DL (2.5-4.9); TOTAL BILIRUBIN ADULT 0.6 MG/DL (0.2-1.0); TOTAL PROTEIN 6.9 GM/DL (6.4-8.2)
[2018-03-01 06:49] LABS: SODIUM (NA) 122 MEQ/L (136-145)
[2018-03-01] MEDS: CHLORHEXIDINE 0.12% (ORAL KIT) 15 ML CUP MT SCH ×2 (08:00→20:00)
--- NOTE | 2018-03-01 08:17 | MB ---
cc: Vaibhav Evans MD, PhD DATE: 02/28/2018 REASON FOR CONSULTATION: Seizure. HISTORY OF PRESENT ILLNESS: Ms. Sprague is a 42-year-old female who has a history of substance abuse, IV drug abuse, who came into the ambulance due to lower extremity pain and altered mental status. She is found to have multiple lower extremity lesions and is status post left below the knee amputation, as well as debridement of right lower extremity wounds. Earlier today, she was noted by nursing to have what appeared to be a generalized seizure, has been loaded with Keppra with no recurrent seizures. Apparently no history of seizures in the past. CURRENT MEDICATIONS: Are Keppra 500 mg b.i.d. Ativan p.r.n., insulin sliding scale, lisinopril 5 mg daily, cefazolin, Pepcid, propofol, metoprolol as needed. NEUROLOGICAL PHYSICAL EXAMINATION: VITAL SIGNS: Blood pressure 139/92, pulse is 100, respirations 33, temperature 98.5 degrees. NEUROLOGIC: higher cortical function. She is alert appearing. Does not follow commands, is nonverbal. Cranial nerves intact. Motor exam, there is no focal deficit. She is status post left BKA. IMAGING: CT brain, no acute change present. LABORATORY DATA: The white count is 6100, hemoglobin 11.7, hematocrit 34%, platelets are 254,000. Sodium is 128, potassium 2.5, chloride 87, CO2 26.2, the BUN is 3, creatinine 0.34, GFR is 209. Tox screen positive on admission for opiates, amphetamines, benzodiazepines, cocaine. IMPRESSION AND PLAN: Generalized seizure. I suspect probably from drug withdrawal, however, rule out other etiologies. We will get an MRI of the brain, as well as an EEG. Continue Keppra. Vaibhav Evans MD, PhD CARA/CASANDRA , 07:36 PM , 07:53 PM
--- NOTE | 2018-03-01 08:18 | HHI.CCPN ---
Subjective Remarks/Hospital Course 02/20: 42-year-old female with history of polysubstance abuse, IVDU, brought in by ambulance from a temporary nursing home/living facility where she is staying for evaluation of bilateral leg pain and altered mental status. One of the other residents became concerned about the patient today because of the way she was acting. They noticed several sores on her bilateral lower extremities. The patient admits to IV drug abuse, last use was yesterday. She complains of pain in her bilateral legs, however is otherwise a very poor historian writhing in bed moaning in pain. Chart review shows that the patient has been admitted for this in the past. 02/21: Sedated, easily arousable, orally intubated on mechanical ventilation. Spiked a temperature 101.5 for which Syed cultures ordered and we are initiating empiric vancomycin and Levaquin. 2-D echo ordered to evaluate heart valves. She had a normal white count this morning. Wounds or bilateral lower extremities unchanged since admission and appeared to be chronic. 02/22: T-max 99.4. Patient underwent TTE this a.m., results pending. Consultation and evaluation performed by podiatry this a.m., vascular surgery urgently consulted. Plan scheduling for left BKA today. Multiple punctate lesions, possible emboli type wounds bilateral upper and lower extremities, as well as left nare. Patient remains sedated and intubated on fentanyl and Versed infusions currently. 02/23: CPAP trials initiated today, patient tolerated for approximately 30 minutes. Tube feeds initiated Jevity 1.5. Wound VAC to left BKA with minimal drainage. Patient to receive 2 units PRBCs per vascular surgery. 02/24: Afebrile. She remains sedated and intubated. left BKA wound VAC intact. Discussion with for return to OR tomorrow for wound closure. Plan with Dr. Philipp Ramos possible debridement of right heel also schedule tentatively for tomorrow. Patient tolerating tube feeds. CPAP trials tolerated today. Patient continues on normal saline infusion with KCl@ 100cc/ hr. Plan for NPO status tonight sodium level 134. Salt Tabs added to medication regimen. 02/25: Afebrile. No acute events overnight the patient remains sedated. Plan for scheduled revision and wound closure of left BKA with Dr. Cabrera as well as debridement of right heel with Dr. Ramos. Patient continues on intermittent CPAP trials. Tolerating tube feeding. 02/26: Patient underwent revision and wound closure of left BKA, as well as debridement right heel. Posttransfusion CBC is stable. Plan initiation of CPAP trials this afternoon, plan to transition to Precedex for SBT trial in a.m. for possible extubation secondary to high opioid requirements secondary to history of polysubstance abuse.PO narcotics added to medication regimen. IV fluids discontinued. 02/27: Currently tolerating CPAP 08/26, reduce pressure support of 5 if tolerated for 45 minutes get weaning parameters with possible extubation. Otherwise minimize sedation. Status post second stage left below-knee amputation. May need right-sided amputation also per Dr. Holder's note 02/28 Patient s/p extubation yesterday on room air oxygen when seen, afebrile. On no drips 03/01 Patient had ? seizure yesterday for MRI brain today per neuro. CT brain yesterday showed no acute findings, EEG showed mild encephalopathy no epileptic activity Objective Vital Signs Date Time Temp Pulse Resp B/P (MAP) Pulse Ox O2 Delivery O2 Flow Rate FiO2 03/01/18 06:00 92 03/01/18 04:00 98.4 41 148/114 (125) 100 02/27/18 09:50 40 Intake and Output 03/01/18 03/01/18 03/02/18 08:00 16:00 00:00 Output Total 1500 ml Balance -1500 ml Result Diagram: 03/01/18 0600 03/01/18 06 Other Results Laboratory Tests Test 02/28/18 22:45 03/01/18 06:00 Potassium Level 3.5 MEQ/L 4.2 MEQ/L Hepatitis A IgM Antibody NONREACTIVE Hepatitis B Surface Antigen NONREACTIVE Hepatitis B Core IgM Antibody NONREACTIVE Hepatitis C IgG Antibody REACTIVE White Blood Count 6.1 TH/MM3 Red Blood Count 4.72 MIL/MM3 Hemoglobin 12.3 GM/DL Hematocrit 35.6 % Mean Corpuscular Volume 75.5 FL Mean Corpuscular Hemoglobin 26.0 PG Mean Corpuscular Hemoglobin Concent 34.4 % Red Cell Distribution Width 17.8 % Platelet Count 297 TH/MM3 Mean Platelet Volume 8.0 FL Neutrophils (%) (Auto) 57.4 % Lymphocytes (%) (Auto) 27.4 % Monocytes (%) (Auto) 13.1 % Eosinophils (%) (Auto) 1.5 % Basophils (%) (Auto) 0.6 % Neutrophils # (Auto) 3.5 TH/MM3 Lymphocytes # (Auto) 1.7 TH/MM3 Monocytes # (Auto) 0.8 TH/MM3 Eosinophils # (Auto) 0.1 TH/MM3 Basophils # (Auto) 0.0 TH/MM3 CBC Comment DIFF FINAL Differential Comment Blood Urea Nitrogen 4 MG/DL Creatinine 0.28 MG/DL Random Glucose 76 MG/DL Total Protein 6.9 GM/DL Albumin 2.4 GM/DL Calcium Level 8.2 MG/DL Phosphorus Level 1.6 MG/DL Magnesium Level 1.7 MG/DL Alkaline Phosphatase 109 U/L Aspartate Amino Transf (AST/SGOT) 94 U/L Alanine Aminotransferase (ALT/SGPT) 44 U/L Total Bilirubin 0.6 MG/DL Sodium Level 122 MEQ/L Chloride Level 87 MEQ/L Carbon Dioxide Level 21.6 MEQ/L Anion Gap 13 MEQ/L Estimat Glomerular Filtration Rate 262 ML/MIN Imaging Last Impressions Liver Ultrasound 02/28/18 0000 Signed Impressions: Service Date/Time: Wednesday, February 28, 2018 09:14 - CONCLUSION: 1. Gallbladder sludge 2. Medical renal disease Flody Villatoro MD Head CT 02/28/18 0000 Signed Impressions: Service Date/Time: Wednesday, February 28, 2018 12:31 - CONCLUSION: 1. No intracranial abnormalities seen. 2. Air within the soft tissues adjacent to the posterior and lateral aspects of the right maxillary sinus. Francisco Figueroa MD Chest X-Ray 02/27/18 0600 Signed Impressions: Service Date/Time: Tuesday, February 27, 2018 03:52 - CONCLUSION: New medial left lung base consolidation versus atelectasis and small pleural effusion. Martín Lambert MD Abdomen X-Ray 02/22/18 0000 Signed Impressions: Service Date/Time: Thursday, February 22, 2018 17:47 - CONCLUSION: 1. NG tip in stomach. Kevin Wells MD Lower Extremity CT 02/21/18 0000 Signed Impressions: Service Date/Time: Wednesday, February 21, 2018 17:58 - CONCLUSION: 1. Subcutaneous edema in the right lower extremity as above. No discrete abscess. No air locules to suggest gas gangrene. Kevin Wells MD Tibia/Fibula X-Ray 02/20/18 0000 Signed Impressions: Service Date/Time: Tuesday, February 20, 2018 11:01 - CONCLUSION: Soft tissue swelling and irregularity with no radiopaque foreign body. Balaji Zimmerman MD Foot X-Ray 02/20/18 0000 Signed Impressions: Service Date/Time: Tuesday, February 20, 2018 11:00 - CONCLUSION: Soft tissue swelling with no radiopaque foreign body or underlying bony abnormality. Balaji Zimmerman MD Procedures 02/22 left BKA 02/26 revision and wound closure left BKA and right heel debridement Objective Remarks Physical exam GENERAL: Well-developed, cachectic appearing lying in bed in [facility] SKIN: Several wounds/ulcerations to bilateral lower extremities with surrounding ecchymosis, no purulent drainage, no crepitus, no fluctuance or induration. s/p L BKA HEAD: Atraumatic. Normocephalic. EYES: Pupils equal and round, 3 mm, reactive to light. ENT: Mucous membranes pink and dry. NECK: Trachea midline. No JVD. No nuchal rigidity. CARDIOVASCULAR: S1-S2 regular, no gallop or murmur. No murmur appreciated. RESPIRATORY: Orally intubated on mechanical ventilation. Clear to auscultation. Breath sounds equal bilaterally. GASTROINTESTINAL: Abdomen soft, non-tender, nondistended. MUSCULOSKELETAL: Skin exam as above s/p L BKA. Multiple large blistering right lower extremities wounds. Multiple petechiae bilateral hands with blistering NEUROLOGICAL: Awake and alert A/P Assessment and Plan Assessment 42 year old female: Resp Insuff Encephalopathy secondary to substance abuse Hyponatremia Polysubstance abuse positive for amphetamines, cocaine, benzodiazepine, opioids Fever with suspected sepsis Left LLE with cellulitis, abscess and gangrene. s/p BKA. History of IV drug use Sinus Tachycardia Uncontrolled hypertension Hypoalbuminemia Malnutrition Postoperative pain Plan: Neuro: Monitor neuro status, awake and alert. UDS: Cocaine, Amphetamines, Opiates, Benzos Chancellor every 4 hours as needed for pain control status post BKA Chancellor 10-325 q 6hr 1145: Patient had seizure episode per nursing staff now postictal on Kera, Neuro is following. For MRI brain today EEG 02/28: Mild encephalopathy no epileptic activity CT brain 02/28: No acute intracranial abnormalities Cardiovascular: Monitor HR and BP keep MAP>65mmHg On Lisinopril 5mg daily. add Coreg 3.125mg BID, On Lopressor/Labetalol IV PRN 02/22 2-D echo EF 25-30% Pulmonary: Oxygen PRN keep satss >92% Bronchodilators GI/liver: kept NPO per speech will insert NGT and start tube feeds Elevated AST, US liver: Gallbladder sludge. Medical renal disease Hepatitis profile reactive Hep C IgG ab Renal/: Monitor renal function, I/O's, electrolytes replacement per protocol. Increase NS@125ml/hr, check serum. urine osm, TSH: 1.58 ID: ID following, on Cefazolin and Levaquin Status post left BKA Wound care consulted for lower extremity leg wounds. Wound culture-staph aureus Sputum culture-Klebsiella follow up on C-diff PCR Endocrine: Watch for hyperglycemia, SSI for glycemic control if needed. Heme: Follow CBC. Transfuse for hemoglobin less than 8 Msk: Vascular surgery following , S/P left BKA. Prophylaxis:SQ Heparin, SCDs for DVT prophylaxis , on Pepcid for GI prophylaxis Level 3 Louie Siddiqui MD Mar 01, 2018 08:18
[2018-03-01] MEDS: LISINOPRIL 5 MG TAB PO SCH (09:00)
[2018-03-01] MEDS: SODIUM CHLORIDE 1 GRAM TAB PO SCH (09:00)
[2018-03-01] MEDS: FAMOTIDINE 40 MG/5 ML LIQ 50 ML BTL NG SCH ×2 (09:00→21:00)
[2018-03-01] MEDS: CARVEDILOL 3.125 MG TAB PO SCH ×2 (09:00→21:00)
[2018-03-01] MEDS: DOCUSATE SODIUM 50 MG/SENNA 8.6 MG TAB PO SCH ×2 (09:00→21:00)
[2018-03-01] MEDS: SODIUM CHLORIDE 0.9% FLUSH 10 ML FLUSH IV FLUSH SCH ×2 (09:30→22:04)
[2018-03-01] MEDS: SODIUM CHLOR 0.9% 1000 ML INJ 1,000 ML IV SCH ×2 (09:30→14:59)
--- NOTE | 2018-03-01 10:48 | HHI.IDPN ---
Subjective Subjective Remarks is a 42 y/o CF with PMHx significant for recurrent cellulitis, Hepatitis C treatment naive, IV drug abuse, reported history of Crohn's disease , COPD. Patient has had multiple hospitalizations most recently in Oct 2017 and 2017 for recurrent bilateral LE cellulitis. 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 Cryoglobulins were detected in low amounts and AMIE was positive. Patient received IV antibiotics and wound care and was discharged to follow up with in wound care clinic. Patient was discharged to infusion clinic to receive dose of Dalbavancin on 01/07 at that time her wounds her superficial fewer and not as many with less evidence of infection. To complicate matters patient does not have a home and her last year. She has been treated with steroids for her vasculitis related non infected ulcers in the past. The rest of the history was obtained by review of medical records. With this background patient was brought in by ambulance from a temporary skilled nursing/living facility where she is staying for evaluation of bilateral leg pain and altered mental status. One of the other residents became concerned about the patient today because of the way she was acting. They noticed several sores on her bilateral lower extremities. The patient admitted to others that she abused drugs a day prior to admission. Due to worsening mentation patient was intubated for airway protection. ICU course: Patient has high grade fevers and foot appeared to be worsening due to concern for Necrotizing fascitis a Surgery consult was placed. Podiatry evaluated patient and a stat Vascular consult to has been placed. Gen Surgery evaluated patient with me. The general opinion seems to be non salvageable left leg but await Vascular opinion. Currently not on pressors. Remains sedated. UO good. Skin lesions noted on bilateral hands on dorsal aspect with blisters. Also tip of nose appears necrotic with surrounding erythema. ID consulted for evaluation of sepsis, Mment of LLE wet septic gangrene, Right foot heel gangrene and bilateral LE cellulitis. Overnight events reviewed 02/27 had further revision of Left BKA and Right foot heel I&D in OR. No fevers No rash No diarrhea Not on pressors. Extubated. Less alert today, Antibiotics Cefepime IV Vanco IV Lines Line sites with no e.o infection Past Medical History Past Medical History Crohn's disease per history Hepatitis C treatment melissa Recurrent cellulitis Past Surgical History Appendectomy Hysterectomy ? Some bowel surgery for Crohn's Allergies: Coded Allergies: codeine (Verified Allergy, Severe, 02/20/18) ketorolac (Verified Allergy, Severe, 02/20/18) penicillin G (Verified Allergy, Intermediate, Rash, 02/20/18) Objective . Vital Signs Date Time Temp Pulse Resp B/P (MAP) Pulse Ox O2 Delivery O2 Flow Rate FiO2 03/01/18 09:57 100 Nasal Cannula 2.00 03/01/18 06:00 92 03/01/18 04:00 93 03/01/18 04:00 98.4 93 41 148/114 (125) 100 03/01/18 02:00 94 03/01/18 00:00 95 03/01/18 00:00 98.2 95 34 155/119 (131) 100 02/28/18 22:00 90 02/28/18 20:00 100 02/28/18 20:00 98.6 100 39 161/99 (119) 02/28/18 18:00 100 02/28/18 16:00 98.5 100 33 139/92 (108) 02/28/18 16:00 100 02/28/18 14:00 122 02/28/18 12:00 98.6 122 164/125 (138) 02/28/18 12:00 96 . Laboratory Tests Test 02/28/18 06:05 03/01/18 06:00 White Blood Count 6.1 TH/MM3 6.1 TH/MM3 Red Blood Count 4.51 MIL/MM3 4.72 MIL/MM3 Hemoglobin 11.7 GM/DL 12.3 GM/DL Hematocrit 34.2 % 35.6 % Mean Corpuscular Volume 75.8 FL 75.5 FL Mean Corpuscular Hemoglobin 25.8 PG 26.0 PG Mean Corpuscular Hemoglobin Concent 34.1 % 34.4 % Red Cell Distribution Width 18.3 % 17.8 % Platelet Count 254 TH/MM3 297 TH/MM3 Mean Platelet Volume 8.3 FL 8.0 FL Neutrophils (%) (Auto) 75.3 % 57.4 % Lymphocytes (%) (Auto) 15.1 % 27.4 % Monocytes (%) (Auto) 8.9 % 13.1 % Eosinophils (%) (Auto) 0.5 % 1.5 % Basophils (%) (Auto) 0.2 % 0.6 % Neutrophils # (Auto) 4.6 TH/MM3 3.5 TH/MM3 Lymphocytes # (Auto) 0.9 TH/MM3 1.7 TH/MM3 Monocytes # (Auto) 0.5 TH/MM3 0.8 TH/MM3 Eosinophils # (Auto) 0.0 TH/MM3 0.1 TH/MM3 Basophils # (Auto) 0.0 TH/MM3 0.0 TH/MM3 CBC Comment DIFF FINAL DIFF FINAL Differential Comment Laboratory Tests Test 02/28/18 06:05 02/28/18 22:45 03/01/18 06:00 Blood Urea Nitrogen 3 MG/DL 4 MG/DL Creatinine 0.34 MG/DL 0.28 MG/DL Random Glucose 102 MG/DL 76 MG/DL Total Protein 6.8 GM/DL 6.9 GM/DL Albumin 2.3 GM/DL 2.4 GM/DL Calcium Level 8.2 MG/DL 8.2 MG/DL Phosphorus Level 1.7 MG/DL 1.6 MG/DL Magnesium Level 1.7 MG/DL 1.7 MG/DL Alkaline Phosphatase 112 U/L 109 U/L Aspartate Amino Transf (AST/SGOT) 161 U/L 94 U/L Alanine Aminotransferase (ALT/SGPT) 43 U/L 44 U/L Total Bilirubin 0.6 MG/DL 0.6 MG/DL Sodium Level 128 MEQ/L 122 MEQ/L Potassium Level 2.5 MEQ/L 3.5 MEQ/L 4.2 MEQ/L Chloride Level 87 MEQ/L 87 MEQ/L Carbon Dioxide Level 26.2 MEQ/L 21.6 MEQ/L Anion Gap 15 MEQ/L 13 MEQ/L Estimat Glomerular Filtration Rate 209 ML/MIN 262 ML/MIN Microbiology Date/Time Source Procedure Growth Status 02/26/18 11:15 Wound Foot Fungal Smear - Final NO FUNGAL ELEMENTS SEEN. Resulted 02/26/18 11:15 Wound Foot Fungal Culture Pending Resulted 02/26/18 11:15 Wound Foot Acid Fast Stain - Final NO ACID FAST BACILLI SEEN Resulted 02/26/18 11:15 Wound Foot Mycobacterial Culture Pending Resulted 02/26/18 11:15 Wound Foot Gram Stain - Final Complete 02/26/18 11:15 Wound Foot Wound Culture - Final NO GROWTH IN 72 HRS.--AEROBICALLY OR ... Complete Imaging Last Impressions Chest X-Ray 02/23/18 0600 Signed Impressions: Service Date/Time: Friday, February 23, 2018 02:40 - CONCLUSION: Satisfactory chest appearance Francisco Shabazz MD Abdomen X-Ray 02/22/18 0000 Signed Impressions: Service Date/Time: Thursday, February 22, 2018 17:47 - CONCLUSION: 1. NG tip in stomach. Kevin Wells MD Lower Extremity CT 02/21/18 0000 Signed Impressions: Service Date/Time: Wednesday, February 21, 2018 17:58 - CONCLUSION: 1. Subcutaneous edema in the right lower extremity as above. No discrete abscess. No air locules to suggest gas gangrene. Kevin Wells MD Tibia/Fibula X-Ray 02/20/18 0000 Signed Impressions: Service Date/Time: Tuesday, February 20, 2018 11:01 - CONCLUSION: Soft tissue swelling and irregularity with no radiopaque foreign body. Balaji Zimmerman MD Head CT 02/20/18 0000 Signed Impressions: Service Date/Time: Tuesday, February 20, 2018 11:49 - CONCLUSION: Suboptimal exam secondary to streak and motion artifact with no evidence of hemorrhage or mass effect. Balaji Zimmerman MD Foot X-Ray 02/20/18 0000 Signed Impressions: Service Date/Time: Tuesday, February 20, 2018 11:00 - CONCLUSION: Soft tissue swelling with no radiopaque foreign body or underlying bony abnormality. Balaji Zimmerman MD Physical Exam GENERAL: This is a well-nourished, well-developed patient, in no apparent distress. SKIN: No rashes, ecchymoses or lesions. Cool and dry. HEAD: Atraumatic. Normocephalic. No temporal or scalp tenderness. EYES: Pupils equal round and reactive. No scleral icterus. No injection or drainage. ENT: Gross exam NAD NECK: Trachea midline. Supple, nontender, no meningeal signs. CARDIOVASCULAR: Regular rate and rhythm without murmurs, gallops, or rubs. RESPIRATORY: Clear to auscultation. Breath sounds equal bilaterally. No wheezes , rales, or rhonchi. GASTROINTESTINAL: Abdomen soft, non-tender, nondistended. MUSCULOSKELETAL: Left limb no further new areas on skin noted. Chronic brown discoloration visible above wound vac area. Right foot in post op dressing. UE hand dorsum with areas of blackening and erythema and blisters noted. Tip of nose with area of blackening noted. NEUROLOGICAL: Sedated Psych cooperative IV line sites with no e.o infection. Assessment & Plan Remarks Sepsis present on admission MSSA foot infection Left leg and foot with cellulitis, abscess and gangrene. s/p BKA. Right foot heel with cellulitis and gangrene Bilateral Hand cellulitis with blisters. Kleb pneumo UTI. Bilateral LE cellulitis with blisters. Clinically looks less likely to be Necrotizing fascitis and no gas on imaging. Does not appear to be spreading beyond margins demarcated with marker. Hepatitis C Cryoglobulinemia Vasculitis : AMIE positive. IVDA Acute resp failure on vent. Penicillin allergy: rash. has tolerated Cephalosporins in past. Recs: Continue Ancef IV Continue Levaquin oral. CXR today. If improving will deescalate. Follow cultures to adjust antibiotics. follow clinically if areas on face and hands worsen consider hand surgery consult and plastics for nose. Zora Pompa MD Mar 01, 2018 10:48
[2018-03-01] MEDS: LEVOFLOXACIN 500 MG TAB PO SCH (11:00)
--- NOTE | 2018-03-01 12:20 | RADRPT ---
EXAM DATE/TIME: 03/01/2018 11:16 [facility] COMPARISON: CHEST SINGLE AP, February 27, 2018, 3:52. INDICATIONS : Short of breath. Evaluate for pneumonia. MEDICAL HISTORY : Hepatitis C. Cervical cancer. Asthma. SURGICAL HISTORY : Hysterectomy. ENCOUNTER: Subsequent ACUITY: 4 - 6 days PAIN SCORE: Non-responsive. LOCATION: Bilateral chest FINDINGS: The heart size is normal. There is an [id number] in place from the right internal jugular approach with the tip overlying the SVC. The lungs are clear. No effusion is seen. CONCLUSION: No acute disease. Francisco Figueroa MD on March 01, 2018 at 12:18 Board Certified Radiologist. This report was verified electronically.
[2018-03-01] MEDS ORDERED: GADODIAMIDE PF 287 MG/ML 10 ML VIAL (for RAD MRI) IVCONTRAST ONE (15:49)
--- NOTE | 2018-03-01 17:51 | RADRPT ---
EXAM DATE/TIME: 03/01/2018 15:27 [facility] COMPARISON: CT BRAIN W/O CONTRAST, February 28, 2018, 12:31. INDICATIONS : Seizures. CONTRAST: 7 cc Omniscan (gadodiamide) IV MEDICAL HISTORY : Hepatitis C. Crohn's disease. IVDU. SURGICAL HISTORY : Hysterectomy. Appendectomy. Left BKA. ENCOUNTER: Subsequent ACUITY: 1 week PAIN SCORE: 0/10 LOCATION: head. TECHNIQUE: Multiplanar, multisequence MRI of the brain was performed both prior to and following the administration of paramagnetic contrast. FINDINGS: CEREBRUM: The ventricles are normal for age. No evidence of midline shift, mass lesion, hemorrha ge or acute infarction. No extraaxial fluid collections are seen. The pituitary gland and suprasell ar cistern are normal in configuration. WHITE MATTER: Focal T2 prolongation in the left subinsular white matter. POSTERIOR FOSSA: The cerebellum and brainstem are intact. Hippocampi appear symmetrical with sym metrical signal. The 4th ventricle is midline. The cerebellopontine angle is unremarkable. The cereb ellar tonsils are normal in position. DIFFUSION IMAGING: No focal areas of restricted diffusion are seen. No evidence of acute infarct ion. EXTRACRANIAL: The visualized portions of the orbits and paranasal sinuses are unremarkable. POST-CONTRAST: No abnormal areas of parenchymal or dural enhancement. No evidence of blood-brain barrier breakdown. There is asymmetrical prominence of the right transverse sinus with inhomogeneous enhancement of the left transverse sinus. CONCLUSION: 1. 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 MRV examination may be performed if there is significant persistent clinical concern regarding dural venous sinus thrombosis. 2. Otherwise, unremarkable MRI examination of the brain. Lenny Dee MD on March 01, 2018 at 17:39 Board Certified Radiologist. This report was verified electronically.
[2018-03-01] MEDS: LABETALOL HCL 100 MG/20 ML VIAL IV PUSH PRN (22:15)
--- NOTE | 2018-03-01 22:34 | HHI.PR ---
Review/Management Diagnosis sz---probably related to drug abuse venous sinus asymmetry---r/o venous sinus thrombosis Plan MRV brain Diagnosis/Plan: Subjective Subjective Comments No acute events reported No sz. Active Medications Current Medications Medications (Trade) Dose Ordered Sig/Malgorzata Route Start Time Stop Time Status Last Admin (NS Flush) 2 ml UNSCH PRN IV FLUSH 02/20/18 15:00 (NS Flush) 2 ml BID IV FLUSH 02/20/18 21:00 03/01/18 22:04 (Tylenol) 650 mg Q6H PRN PO 02/20/18 15:00 (Ativan Inj) 2 mg Q4H PRN IV PUSH 02/20/18 15:00 03/01/18 20:37 (Zofran Inj) 4 mg Q6H PRN IV PUSH 02/20/18 15:00 02/27/18 20:06 (Duoneb Neb) 1 ampule Q4HR NEB PRN INH 02/20/18 15:00 02/27/18 03:21 (Heparin Inj) 5,000 units Q12H SQ 02/20/18 16:00 03/01/18 03:37 Miscellaneous Information 1 Q361D XX 02/20/18 15:00 (Chlorhexidine 2% Cloth) Taper DAILY@04 TOP 02/21/18 04:00 02/17/19 03:59 03/01/18 03:37 (Chlorhexidine 2% Cloth) 3 pack UNSCH PRN TOP 02/20/18 15:00 (Damari-Colace) 1 tab BID PO 02/21/18 09:00 02/28/18 21:27 (Milk Of Magnesia Liq) 30 ml Q12H PRN PO 02/20/18 15:00 (Senokot) 17.2 mg Q12H PRN PO 02/20/18 15:00 (Dulcolax Supp) 10 mg DAILY PRN RECTAL 02/20/18 15:00 (Lactulose Liq) 30 ml DAILY PRN PO 02/20/18 15:00 02/25/18 20:14 Potassium Chloride 100 ml @ 50 mls/hr Q2H PRN IV 02/20/18 15:00 Potassium Chloride 100 ml @ 50 mls/hr Q2H PRN IV 02/20/18 15:00 (K-Lyte Cl Eff) 50 meq UNSCH PRN PO 02/20/18 15:00 Potassium Chloride 100 ml @ 25 mls/hr UNSCH PRN IV 02/20/18 15:00 Potassium Chloride 100 ml @ 50 mls/hr Q2H PRN IV 02/20/18 15:00 03/01/18 03:39 Magnesium Sulfate 4 gm/Sodium Chloride 100 ml @ 50 mls/hr UNSCH PRN IV 02/20/18 15:00 (Mag-Ox) 800 mg UNSCH PRN PO 02/20/18 15:00 Magnesium Sulfate 2 gm/Sodium Chloride 100 ml @ 50 mls/hr UNSCH PRN IV 02/20/18 15:00 02/25/18 06:37 (K-Phos) 2,000 mg Q4H PRN PO 02/20/18 15:00 Sodium Phosphate 30 mmol/Sodium Chloride 250 ml @ 42 mls/hr UNSCH PRN IV 02/20/18 15:00 (K-Phos) 2,000 mg UNSCH PRN PO/TUBE 02/20/18 15:00 Potassium Phosphate 30 mmol/ Sodium Chloride 260 ml @ 42 mls/hr UNSCH PRN IV 02/20/18 15:00 (Lopressor Inj) 5 mg Q6H PRN IV PUSH 02/20/18 16:45 03/01/18 21:51 (Trandate Inj) 10 mg Q4H PRN IV PUSH 02/20/18 16:45 03/01/18 22:15 (Peridex 0.12% Liq) 15 ml BID@08,20 MT 02/20/18 20:00 02/28/18 21:33 Propofol 100 ml @ 1.2 mls/hr TITRATE PRN IV 02/20/18 21:00 02/26/18 18:47 Acetaminophen 100 ml @ 400 mls/hr Q6H PRN IV 02/21/18 13:00 (Pepcid Liq) 20 mg BID NG 02/22/18 21:00 02/28/18 21:27 (Tears Naturale Opth Soln) 1 drop Q4H PRN EACH EYE 02/22/18 13:00 02/23/18 07:47 Cefazolin Sodium 2000 mg/Sodium Chloride 120 ml @ 240 mls/hr Q8H IV 02/23/18 20:00 03/01/18 22:04 (Sodium Chloride) 1 gm DAILY PO 02/24/18 18:00 02/28/18 09:00 ([place] 10-325 Mg) 1 tab Q6H PRN PO 02/25/18 18:00 02/28/18 22:14 (Levaquin) 500 mg DAILY@1100 PO 02/28/18 11:00 02/28/18 11:00 (Prinivil) 5 mg DAILY PO 02/28/18 09:00 02/28/18 09:00 Sodium Chloride 1,000 ml @ 125 mls/hr Q8H IV 02/28/18 09:00 03/01/18 14:59 (D50w (Vial) Inj) 50 ml UNSCH PRN IV PUSH 02/28/18 08:45 (Glucagon Inj) 1 mg UNSCH PRN OTHER 02/28/18 08:45 (NovoLIN R SUPPLEMENTAL SCALE) 1 Q6H SQ 02/28/18 10:00 Levetriacetam 500 mg/Sodium Chloride 105 ml @ 420 mls/hr Q12H IV 02/28/18 12:00 03/01/18 14:53 (Ativan Inj) 1 mg Q2H PRN IV PUSH 02/28/18 13:00 (Coreg) 3.125 mg Q12HR PO 03/01/18 09:00 Allergies Allergies Coded Allergies codeine (Verified Allergy, Severe, 02/20/18) ketorolac (Verified Allergy, Severe, 02/20/18) penicillin G (Verified Allergy, Intermediate, Rash, 02/20/18) Exam I&O / VS 03/01/18 03/01/18 03/02/18 15:00 23:00 07:00 Intake Total 0 ml Output Total 2300 ml Balance -2300 ml Intake Oral 0 ml Output Urine Total 2000 ml Stool Total 300 ml Vital Signs Date Time Temp Pulse Resp B/P (MAP) Pulse Ox O2 Delivery O2 Flow Rate FiO2 03/01/18 18:00 97.9 108 60 100 03/01/18 18:00 108 03/01/18 14:00 101 03/01/18 12:00 93 03/01/18 12:00 98.1 93 35 138/109 (119) 100 03/01/18 10:00 91 03/01/18 09:57 100 Nasal Cannula 2.00 03/01/18 08:00 97 03/01/18 08:00 97.9 97 46 155/104 (121) 100 03/01/18 06:00 92 03/01/18 04:00 93 03/01/18 04:00 98.4 93 41 148/114 (125) 100 03/01/18 02:00 94 03/01/18 00:00 95 03/01/18 00:00 98.2 95 34 155/119 (131) 100 Exam Comments lethargic. CN intact MOTOR--no focal weakness Objective Radiology Results MRI brain--frances except sinus asymmetry--mrv recommended Micro and Labs Laboratory Tests Test 02/28/18 22:45 03/01/18 06:00 03/01/18 08:23 03/01/18 11:15 Potassium Level 3.5 4.2 Hepatitis A IgM Antibody NONREACTIVE Hepatitis B Surface Antigen NONREACTIVE Hepatitis B Core IgM Antibody NONREACTIVE Hepatitis C IgG Antibody REACTIVE White Blood Count 6.1 Red Blood Count 4.72 Hemoglobin 12.3 Hematocrit 35.6 Mean Corpuscular Volume 75.5 Mean Corpuscular Hemoglobin 26.0 Mean Corpuscular Hemoglobin Concent 34.4 Red Cell Distribution Width 17.8 Platelet Count 297 Mean Platelet Volume 8.0 Neutrophils (%) (Auto) 57.4 Lymphocytes (%) (Auto) 27.4 Monocytes (%) (Auto) 13.1 Eosinophils (%) (Auto) 1.5 Basophils (%) (Auto) 0.6 Neutrophils # (Auto) 3.5 Lymphocytes # (Auto) 1.7 Monocytes # (Auto) 0.8 Eosinophils # (Auto) 0.1 Basophils # (Auto) 0.0 CBC Comment DIFF FINAL Differential Comment Stool C. difficile Toxin (PCR) NEGATIVE Stl C. difficile Toxin Epiderm 027 PRESUMPTIVE NEGATIVE Blood Urea Nitrogen 4 Creatinine 0.28 Random Glucose 76 Total Protein 6.9 Albumin 2.4 Calcium Level 8.2 Phosphorus Level 1.6 Magnesium Level 1.7 Alkaline Phosphatase 109 Aspartate Amino Transf (AST/SGOT) 94 Alanine Aminotransferase (ALT/SGPT) 44 Total Bilirubin 0.6 Sodium Level 122 Chloride Level 87 Carbon Dioxide Level 21.6 Anion Gap 13 Estimat Glomerular Filtration Rate 262 Blood Gas Puncture Site RT BRACHIAL Blood Gas Patient Temperature 98.6 Blood Gas HCO3 17 Blood Gas Base Excess -5.5 Blood Gas Oxygen Saturation 96 Arterial Blood pH 7.50 Arterial Blood Partial Pressure CO2 22 Arterial Blood Partial Pressure O2 104 Arterial Blood Oxygen Content 17.0 Arterial Blood Carboxyhemoglobin 1.1 Arterial Blood Methemoglobin 1.1 Blood Gas Hemoglobin 12.5 Oxygen Delivery Device NASAL CANNULA Blood Gas Liter Flow 2 Urine Osmolality 627 Serum Osmolality 250 Test 03/01/18 18:40 Sodium Level 121 Date/Time Source Procedure Growth Status 02/21/18 13:21 Blood Peripheral Aerobic Blood Culture - Final NO GROWTH IN 5 DAYS Complete 02/21/18 13:21 Blood Peripheral Anaerobic Blood Culture - Final NO GROWTH IN 5 DAYS Complete 02/21/18 13:11 Sputum Endotracheal Gram Stain - Final Complete 02/21/18 13:11 Sputum Culture - Final Klebsiella Pneumoniae Complete 02/26/18 11:15 Wound Foot Fungal Smear - Final NO FUNGAL ELEMENTS SEEN. Resulted 02/26/18 11:15 Wound Foot Fungal Culture Pending Resulted Diagnostic Tests EEG----no epileptiform discharges Vaibhav Evans MD PhD Mar 01, 2018 22:34
[2018-03-02] VITALS (21 sets, daily range): BP systolic 137–158; BP diastolic 89–113; PULSE 81–106; RESP 28–48; TEMP 96.7–98.4; O2SAT 99–100
[2018-03-02] MEDS: SODIUM CHLOR 0.9% 1000 ML INJ 1,000 ML IV SCH ×2 (00:43→06:47)
[2018-03-02] MEDS: LORazepam 2 MG/ML VIAL IV PUSH PRN ×4 (00:48→19:57)
[2018-03-02] MEDS: levETIRAcetam INJ 500 MG in SODIUM CHLORIDE 0.9% INJ 100 ML IV SCH ×2 (00:48→12:21)
[2018-03-02] MEDS: INSULIN NovoLIN REGULAR SUPPLEMENTAL SCALE SQ SCH ×4 (04:00→20:53)
[2018-03-02] MEDS: CHLORHEXIDINE GLUCONATE 2 % 1 PACK (2 CLOTHS) TOP SCH (04:00)
[2018-03-02] MEDS: CEFAZOLIN INJ 2,000 MG in SODIUM CHLORIDE 0.9% INJ 100 ML IV SCH ×3 (04:06→19:55)
[2018-03-02] MEDS: HEPARIN SODIUM - SQ 10,000 UNITS/ML VIAL SQ SCH ×3 (04:06→16:16)
[2018-03-02] MEDS: METOPROLOL TARTRATE 5 MG/5 ML VIAL IV PUSH PRN (04:12)
[2018-03-02] MEDS: LABETALOL HCL 100 MG/20 ML VIAL IV PUSH PRN (06:21)
[2018-03-02 06:53] LABS: BASOPHIL % 0.5 % (0.0-2.0); EOSINOPHIL # 0.1 TH/MM3 (0-0.4); EOSINOPHIL % 1.4 % (0.0-4.0); HEMATOCRIT 33.9 % (35.0-46.0); HEMOGLOBIN 11.7 GM/DL (11.6-15.3); LYMPH % 34.5 % (9.0-44.0); MEAN CELL VOLUME 75.8 FL (80.0-100.0); MEAN CORPUSCULAR HEMOGLOBIN 26.1 PG (27.0-34.0); MEAN CORPUSCULAR HGB CONC 34.5 % (32.0-36.0); MEAN PLATELET VOLUME 7.9 FL (7.0-11.0); MONOCYTE # 0.7 TH/MM3 (0-0.9); NEUT % 51.6 % (16.0-70.0); PLATELET COUNT 296 TH/MM3 (150-450); RED BLOOD COUNT 4.47 MIL/MM3 (4.00-5.30); RED CELL DISTRIBUTION WIDTH 17.7 % (11.6-17.2); WHITE BLOOD COUNT 5.8 TH/MM3 (4.0-11.0)
[2018-03-02 07:29] LABS: ALBUMIN 2.2 GM/DL (3.4-5.0); ALKALINE PHOSPHATASE 90 U/L (45-117); ALT (GPT) 31 U/L (10-53); AST (GOT) 55 U/L (15-37); BICARBONATE 20.7 MEQ/L (21.0-32.0); BLOOD UREA NITROGEN 5 MG/DL (7-18); CALCIUM 7.6 MG/DL (8.5-10.1); CHLORIDE 88 MEQ/L (98-107); CREATININE 0.24 MG/DL (0.50-1.00); GLOMERULAR FILTRATION RATE 313 ML/MIN (>89); GLUCOSE,RANDOM 76 MG/DL (74-106); TOTAL BILIRUBIN ADULT 0.5 MG/DL (0.2-1.0); TOTAL PROTEIN 6.2 GM/DL (6.4-8.2)
[2018-03-02 07:37] LABS: SODIUM (NA) 121 MEQ/L (136-145)
[2018-03-02] MEDS: CHLORHEXIDINE 0.12% (ORAL KIT) 15 ML CUP MT SCH ×2 (08:00→19:55)
[2018-03-02] MEDS ORDERED: 3% SALINE INJ 250 ML IV ONE (08:00)
--- NOTE | 2018-03-02 08:05 | HHI.CCPN ---
Subjective Remarks/Hospital Course 02/20: 42-year-old female with history of polysubstance abuse, IVDU, brought in by ambulance from a temporary custodial/living facility where she is staying for evaluation of bilateral leg pain and altered mental status. One of the other residents became concerned about the patient today because of the way she was acting. They noticed several sores on her bilateral lower extremities. The patient admits to IV drug abuse, last use was yesterday. She complains of pain in her bilateral legs, however is otherwise a very poor historian writhing in bed moaning in pain. Chart review shows that the patient has been admitted for this in the past. 02/21: Sedated, easily arousable, orally intubated on mechanical ventilation. Spiked a temperature 101.5 for which Syed cultures ordered and we are initiating empiric vancomycin and Levaquin. 2-D echo ordered to evaluate heart valves. She had a normal white count this morning. Wounds or bilateral lower extremities unchanged since admission and appeared to be chronic. 02/22: T-max 99.4. Patient underwent TTE this a.m., results pending. Consultation and evaluation performed by podiatry this a.m., vascular surgery urgently consulted. Plan scheduling for left BKA today. Multiple punctate lesions, possible emboli type wounds bilateral upper and lower extremities, as well as left nare. Patient remains sedated and intubated on fentanyl and Versed infusions currently. 02/23: CPAP trials initiated today, patient tolerated for approximately 30 minutes. Tube feeds initiated Jevity 1.5. Wound VAC to left BKA with minimal drainage. Patient to receive 2 units PRBCs per vascular surgery. 02/24: Afebrile. She remains sedated and intubated. left BKA wound VAC intact. Discussion with for return to OR tomorrow for wound closure. Plan with Dr. Philipp Ramos possible debridement of right heel also schedule tentatively for tomorrow. Patient tolerating tube feeds. CPAP trials tolerated today. Patient continues on normal saline infusion with KCl@ 100cc/ hr. Plan for NPO status tonight sodium level 134. Salt Tabs added to medication regimen. 02/25: Afebrile. No acute events overnight the patient remains sedated. Plan for scheduled revision and wound closure of left BKA with Dr. Cabrera as well as debridement of right heel with Dr. Ramos. Patient continues on intermittent CPAP trials. Tolerating tube feeding. 02/26: Patient underwent revision and wound closure of left BKA, as well as debridement right heel. Posttransfusion CBC is stable. Plan initiation of CPAP trials this afternoon, plan to transition to Precedex for SBT trial in a.m. for possible extubation secondary to high opioid requirements secondary to history of polysubstance abuse.PO narcotics added to medication regimen. IV fluids discontinued. 02/27: Currently tolerating CPAP 08/26, reduce pressure support of 5 if tolerated for 45 minutes get weaning parameters with possible extubation. Otherwise minimize sedation. Status post second stage left below-knee amputation. May need right-sided amputation also per Dr. Holder's note 02/28 Patient s/p extubation yesterday on room air oxygen when seen, afebrile. On no drips 03/01 Patient had ? seizure yesterday for MRI brain today per neuro. CT brain yesterday showed no acute findings, EEG showed mild encephalopathy no epileptic activity 03/02 Patient is lethargic given Ativan 4mg total during night for agitation. For MRV brain per neuro. Objective Vital Signs Date Time Temp Pulse Resp B/P (MAP) Pulse Ox O2 Delivery O2 Flow Rate FiO2 03/02/18 06:00 96 03/02/18 04:00 98.4 35 139/99 (112) 99 03/01/18 19:55 21 03/01/18 09:57 Nasal Cannula 2.00 Intake and Output 03/02/18 03/02/18 03/03/18 08:00 16:00 00:00 Output Total 1600 ml Balance -1600 ml Result Diagram: 03/02/18 0610 03/02/18 0610 Other Results Laboratory Tests Test 03/01/18 08:23 03/01/18 11:15 03/01/18 18:40 03/02/18 03:47 Blood Gas Puncture Site RT BRACHIAL Blood Gas Patient Temperature 98.6 Blood Gas HCO3 17 mmol/L Blood Gas Base Excess -5.5 mmol/L Blood Gas Oxygen Saturation 96 % Arterial Blood pH 7.50 Arterial Blood Partial Pressure CO2 22 mmHg Arterial Blood Partial Pressure O2 104 mmHg Arterial Blood Oxygen Content 17.0 Vol % Arterial Blood Carboxyhemoglobin 1.1 % Arterial Blood Methemoglobin 1.1 % Blood Gas Hemoglobin 12.5 G/DL Oxygen Delivery Device NASAL CANNULA Blood Gas Liter Flow 2 L/M Urine Osmolality 627 MOSM/KG Serum Osmolality 250 MOSM/KG Sodium Level 121 MEQ/L 121 MEQ/L Test 03/02/18 06:10 White Blood Count 5.8 TH/MM3 Red Blood Count 4.47 MIL/MM3 Hemoglobin 11.7 GM/DL Hematocrit 33.9 % Mean Corpuscular Volume 75.8 FL Mean Corpuscular Hemoglobin 26.1 PG Mean Corpuscular Hemoglobin Concent 34.5 % Red Cell Distribution Width 17.7 % Platelet Count 296 TH/MM3 Mean Platelet Volume 7.9 FL Neutrophils (%) (Auto) 51.6 % Lymphocytes (%) (Auto) 34.5 % Monocytes (%) (Auto) 12.0 % Eosinophils (%) (Auto) 1.4 % Basophils (%) (Auto) 0.5 % Neutrophils # (Auto) 3.0 TH/MM3 Lymphocytes # (Auto) 2.0 TH/MM3 Monocytes # (Auto) 0.7 TH/MM3 Eosinophils # (Auto) 0.1 TH/MM3 Basophils # (Auto) 0.0 TH/MM3 CBC Comment DIFF FINAL Differential Comment Blood Urea Nitrogen 5 MG/DL Creatinine 0.24 MG/DL Random Glucose 76 MG/DL Total Protein 6.2 GM/DL Albumin 2.2 GM/DL Calcium Level 7.6 MG/DL Alkaline Phosphatase 90 U/L Aspartate Amino Transf (AST/SGOT) 55 U/L Alanine Aminotransferase (ALT/SGPT) 31 U/L Total Bilirubin 0.5 MG/DL Sodium Level 121 MEQ/L Potassium Level 2.9 MEQ/L Chloride Level 88 MEQ/L Carbon Dioxide Level 20.7 MEQ/L Anion Gap 12 MEQ/L Estimat Glomerular Filtration Rate 313 ML/MIN Imaging Last Impressions Chest X-Ray 03/01/18 0000 Signed Impressions: Service Date/Time: Thursday, March 01, 2018 11:16 - CONCLUSION: No acute disease. Francisco Figueroa MD Brain MRI 03/01/18 0000 Signed Impressions: Service Date/Time: Thursday, March 01, 2018 15:27 - CONCLUSION: 1. 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 MRV examination may be performed if there is significant persistent clinical concern regarding dural venous sinus thrombosis. 2. Otherwise, unremarkable MRI examination of the brain. Lenny Dee MD Liver Ultrasound 02/28/18 0000 Signed Impressions: Service Date/Time: Wednesday, February 28, 2018 09:14 - CONCLUSION: 1. Gallbladder sludge 2. Medical renal disease Floyd Villatoro MD Head CT 02/28/18 0000 Signed Impressions: Service Date/Time: Wednesday, February 28, 2018 12:31 - CONCLUSION: 1. No intracranial abnormalities seen. 2. Air within the soft tissues adjacent to the posterior and lateral aspects of the right maxillary sinus. Francisco Figueroa MD Abdomen X-Ray 02/22/18 0000 Signed Impressions: Service Date/Time: Thursday, February 22, 2018 17:47 - CONCLUSION: 1. NG tip in stomach. Kevin Wells MD Lower Extremity CT 02/21/18 0000 Signed Impressions: Service Date/Time: Wednesday, February 21, 2018 17:58 - CONCLUSION: 1. Subcutaneous edema in the right lower extremity as above. No discrete abscess. No air locules to suggest gas gangrene. Kevin Wells MD Tibia/Fibula X-Ray 02/20/18 0000 Signed Impressions: Service Date/Time: Tuesday, February 20, 2018 11:01 - CONCLUSION: Soft tissue swelling and irregularity with no radiopaque foreign body. Balaji Zimmerman MD Foot X-Ray 02/20/18 0000 Signed Impressions: Service Date/Time: Tuesday, February 20, 2018 11:00 - CONCLUSION: Soft tissue swelling with no radiopaque foreign body or underlying bony abnormality. Balaji Zimmerman MD Procedures 02/22 left BKA 02/26 revision and wound closure left BKA and right heel debridement Objective Remarks Physical exam GENERAL: Well-developed, cachectic appearing lying in bed in [facility] SKIN: Several wounds/ulcerations to bilateral lower extremities with surrounding ecchymosis, no purulent drainage, no crepitus, no fluctuance or induration. s/p L BKA HEAD: Atraumatic. Normocephalic. EYES: Pupils equal and round, 3 mm, reactive to light. ENT: Mucous membranes pink and dry. NECK: Trachea midline. No JVD. No nuchal rigidity. CARDIOVASCULAR: S1-S2 regular, no gallop or murmur. No murmur appreciated. RESPIRATORY: Orally intubated on mechanical ventilation. Clear to auscultation. Breath sounds equal bilaterally. GASTROINTESTINAL: Abdomen soft, non-tender, nondistended. MUSCULOSKELETAL: Skin exam as above s/p L BKA. Multiple large blistering right lower extremities wounds. Multiple petechiae bilateral hands with blistering NEUROLOGICAL: Awake and alert A/P Assessment and Plan Assessment 42 year old female: Resp Insuff Encephalopathy secondary to substance abuse Hyponatremia Polysubstance abuse positive for amphetamines, cocaine, benzodiazepine, opioids Fever with suspected sepsis Left LLE with cellulitis, abscess and gangrene. s/p BKA. History of IV drug use Sinus Tachycardia Uncontrolled hypertension Hypoalbuminemia Malnutrition Postoperative pain Seizures Plan: Neuro: Monitor neuro status, UDS: Cocaine, Amphetamines, Opiates, Benzos [place] every 4 hours as needed for pain control status post BKA [place] 10-325 q 6hr on Keppra, Neuro is following. 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 Coreg 3.125mg BID, On Lopressor/Labetalol IV PRN / 2-D echo EF 25-30% Pulmonary: Oxygen keep satss >92% Bronchodilators, aspiration precautions CXR: No acute disease GI/liver: kept NPO per speech, nursing staff couldn't be NGT or Dobbhoff tube yesterday will reattempt today Elevated AST, US liver: Gallbladder sludge. Medical renal disease Hepatitis profile reactive Hep C IgG ab Renal/: Monitor renal function, I/O's, electrolytes replacement per protocol. TSH: 1.[address] on 3% saline @30ml/hr, monitor sodium level Q4 hr, renal eval. Check urine sodium, serum osm: 250, urine osm: 627 likely SIADH ID: ID following, on Cefazolin and Levaquin Status post left BKA Wound care consulted for lower extremity leg wounds. Wound culture-staph aureus Sputum culture-Klebsiella follow up on C-diff PCR Endocrine: SSI for glycemic control if needed. Heme: Follow CBC. Transfuse for hemoglobin less than 8 Msk: Vascular surgery following , S/P left BKA. Prophylaxis:SQ Heparin, SCDs for DVT prophylaxis , on Pepcid for GI prophylaxis Level 3 Louie Siddiqui MD Mar 02, 2018 08:05
[2018-03-02] MEDS: DOCUSATE SODIUM 50 MG/SENNA 8.6 MG TAB PO SCH ×3 (09:00→19:58)
[2018-03-02] MEDS ORDERED: GADODIAMIDE PF 287 MG/ML 20 ML VIAL (for RAD MRI) IV PUSH ONE (09:00)
[2018-03-02] MEDS: SODIUM CHLORIDE 1 GRAM TAB PO SCH (09:00)
[2018-03-02] MEDS: POTASSIUM CHLOR 20 MEQ PREMIX 100 ML IV PRN ×4 (09:04→12:11)
--- NOTE | 2018-03-02 10:06 | RADRPT ---
EXAM DATE/TIME: 03/02/2018 08:36 COMPARISON: MRI BRAIN W & W/O CONTRAST, March 01, 2018, 15:27. INDICATIONS : Thrombosis. CONTRAST: 20 cc Omniscan (gadodiamide) IV MEDICAL HISTORY : None. SURGICAL HISTORY : Hysterectomy. Appendectomy. BKA left. ENCOUNTER: Initial ACUITY: 3 day PAIN SCORE: Nonresponsive. LOCATION: head FINDINGS: Mild asymmetry of the transverse sinus larger on the right than the left with no evidence for venous thrombosis. CONCLUSION: No evidence for cerebral venous thrombosis. Ata Friedman MD FACR on March 02, 2018 at 10:02 Board Certified Radiologist. This report was verified electronically.
[2018-03-02] MEDS: CARVEDILOL 3.125 MG TAB PO SCH ×2 (10:14→19:57)
[2018-03-02] MEDS: LEVOFLOXACIN 500 MG TAB PO SCH (10:14)
[2018-03-02] MEDS: SODIUM CHLORIDE 0.9% FLUSH 10 ML FLUSH IV FLUSH SCH ×2 (10:15→19:55)
[2018-03-02] MEDS: FAMOTIDINE 40 MG/5 ML LIQ 50 ML BTL NG SCH ×2 (10:15→19:56)
[2018-03-02] MEDS: LISINOPRIL 5 MG TAB PO SCH (10:15)
--- NOTE | 2018-03-02 14:13 | PD.CONS ---
HPI Service Nephrology Consult Requested By Dr. 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 Review of Systems Constitutional: COMPLAINS OF: Fatigue, Weight loss Musculoskeletal: COMPLAINS OF: Joint pain, Muscle aches, Stiffness, Joint Swelling, Back pain Integumentary: COMPLAINS OF: Rash Neurologic: COMPLAINS OF: Abnormal gait Past Family Social History Allergies: Coded Allergies: codeine (Verified Allergy, Severe, 02/20/18) ketorolac (Verified Allergy, Severe, 02/20/18) penicillin G (Verified Allergy, Intermediate, Rash, 02/20/18) Past Medical History Crohn's disease per history Hepatitis C treatment melissa Recurrent cellulitis Past Surgical History Appendectomy Hysterectomy Exploratory laparotomy Reported Medications Reported Meds & Active Scripts Active Hydrocodone-Acetamin 5-325 mg (Hydrocodone/Acetaminophen) 5 Mg-325 Mg Tablet 1 Tab PO Q6H PRN Eq Nicotine (Nicotine) 21 Mg/24 Hour Dis 1 Patch T-DERMAL DAILY Epinephrine Inj 1 Mg/Ml (1 Ml) Inj 0.3 Mg SQ ONCE PRN Give with any signs of respiratory distress. Epinephrine Inj 1 Mg/Ml (1 Ml) Inj 0.3 Mg IV PUSH ONCE PRN Solu-Cortef Inj (Hydrocortisone Sodium Succinate) 250 Mg/2 Ml Inj 250 Mg IV PUSH ONCE PRN Give over 30-60 seconds. Dalvance Inj (Dalbavancin) 500 Mg Vial 1,500 Mg IV ONCE Initial dose of two-dose regimen for CrCl <30 mL/min Active Ordered Medications Current Medications Medications (Trade) Dose Ordered Sig/Malgorzata Route Start Time Stop Time Status Last Admin (NS Flush) 2 ml UNSCH PRN IV FLUSH 02/20/18 15:00 (NS Flush) 2 ml BID IV FLUSH 02/20/18 21:00 03/02/18 10:15 (Tylenol) 650 mg Q6H PRN PO 02/20/18 15:00 (Ativan Inj) 2 mg Q4H PRN IV PUSH 02/20/18 15:00 03/02/18 04:53 (Zofran Inj) 4 mg Q6H PRN IV PUSH 02/20/18 15:00 02/27/18 20:06 (Duoneb Neb) 1 ampule Q4HR NEB PRN INH 02/20/18 15:00 02/27/18 03:21 (Heparin Inj) 5,000 units Q12H SQ 02/20/18 16:00 03/02/18 04:11 Miscellaneous Information 1 Q361D XX 02/20/18 15:00 (Chlorhexidine 2% Cloth) Taper DAILY@04 TOP 02/21/18 04:00 02/17/19 03:59 03/02/18 04:00 (Chlorhexidine 2% Cloth) 3 pack UNSCH PRN TOP 02/20/18 15:00 (Damari-Colace) 1 tab BID PO 02/21/18 09:00 02/28/18 21:27 (Milk Of Magnesia Liq) 30 ml Q12H PRN PO 02/20/18 15:00 (Senokot) 17.2 mg Q12H PRN PO 02/20/18 15:00 (Dulcolax Supp) 10 mg DAILY PRN RECTAL 02/20/18 15:00 (Lactulose Liq) 30 ml DAILY PRN PO 02/20/18 15:00 02/25/18 20:14 Potassium Chloride 100 ml @ 50 mls/hr Q2H PRN IV 02/20/18 15:00 Potassium Chloride 100 ml @ 50 mls/hr Q2H PRN IV 02/20/18 15:00 03/02/18 12:11 (K-Lyte Cl Eff) 50 meq UNSCH PRN PO 02/20/18 15:00 Potassium Chloride 100 ml @ 25 mls/hr UNSCH PRN IV 02/20/18 15:00 Potassium Chloride 100 ml @ 50 mls/hr Q2H PRN IV 02/20/18 15:00 03/01/18 03:39 Magnesium Sulfate 4 gm/Sodium Chloride 100 ml @ 50 mls/hr UNSCH PRN IV 02/20/18 15:00 (Mag-Ox) 800 mg UNSCH PRN PO 02/20/18 15:00 Magnesium Sulfate 2 gm/Sodium Chloride 100 ml @ 50 mls/hr UNSCH PRN IV 02/20/18 15:00 02/25/18 06:37 (K-Phos) 2,000 mg Q4H PRN PO 02/20/18 15:00 Sodium Phosphate 30 mmol/Sodium Chloride 250 ml @ 42 mls/hr UNSCH PRN IV 02/20/18 15:00 (K-Phos) 2,000 mg UNSCH PRN PO/TUBE 02/20/18 15:00 Potassium Phosphate 30 mmol/ Sodium Chloride 260 ml @ 42 mls/hr UNSCH PRN IV 02/20/18 15:00 (Lopressor Inj) 5 mg Q6H PRN IV PUSH 02/20/18 16:45 03/02/18 04:12 (Trandate Inj) 10 mg Q4H PRN IV PUSH 02/20/18 16:45 03/02/18 06:21 (Peridex 0.12% Liq) 15 ml BID@08,20 MT 02/20/18 20:00 03/02/18 08:00 Acetaminophen 100 ml @ 400 mls/hr Q6H PRN IV 02/21/18 13:00 (Pepcid Liq) 20 mg BID NG 02/22/18 21:00 03/02/18 10:15 (Tears Naturale Opth Soln) 1 drop Q4H PRN EACH EYE 02/22/18 13:00 02/23/18 07:47 Cefazolin Sodium 2000 mg/Sodium Chloride 120 ml @ 240 mls/hr Q8H IV 02/23/18 20:00 03/02/18 12:21 (Sodium Chloride) 1 gm DAILY PO 02/24/18 18:00 02/28/18 09:00 ([place] 10-325 Mg) 1 tab Q6H PRN PO 02/25/18 18:00 02/28/18 22:14 (Levaquin) 500 mg DAILY@1100 PO 02/28/18 11:00 03/02/18 10:14 (Prinivil) 5 mg DAILY PO 02/28/18 09:00 03/02/18 10:15 (D50w (Vial) Inj) 50 ml UNSCH PRN IV PUSH 02/28/18 08:45 (Glucagon Inj) 1 mg UNSCH PRN OTHER 02/28/18 08:45 (NovoLIN R SUPPLEMENTAL SCALE) 1 Q6H SQ 02/28/18 10:00 Levetriacetam 500 mg/Sodium Chloride 105 ml @ 420 mls/hr Q12H IV 02/28/18 12:00 03/02/18 12:21 (Coreg) 3.125 mg Q12HR PO 03/01/18 09:00 03/02/18 10:14 Sodium Chloride 250 ml @ 30 mls/hr ONCE ONCE IV 03/02/18 08:00 03/02/18 16:19 03/02/18 08:00 Family History Noncontributory Social History She has history of of drug abuse smoking Physical Exam Vital Signs Vital Signs Date Time Temp Pulse Resp B/P (MAP) Pulse Ox O2 Delivery O2 Flow Rate FiO2 03/02/18 06:00 96 03/02/18 04:00 98.4 98 35 139/99 (112) 99 03/02/18 04:00 98 03/02/18 02:00 95 03/02/18 00:00 98.3 98 48 148/107 (121) 100 03/02/18 00:00 98 03/01/18 22:00 90 03/01/18 20:00 98.2 113 39 160/114 (129) 100 03/01/18 20:00 96 03/01/18 19:55 100 21 03/01/18 18:00 97.9 108 60 100 03/01/18 18:00 108 Physical Exam GENERAL: Well-nourished, well-developed patient. SKIN: Warm and dry. HEAD: Normocephalic. EYES: No scleral icterus. No injection or drainage. NECK: Supple, trachea midline. No JVD or lymphadenopathy. CARDIOVASCULAR: Regular rate and rhythm without murmurs, gallops, or rubs. RESPIRATORY: Breath sounds equal bilaterally. No accessory muscle use. GASTROINTESTINAL: Abdomen soft, non-tender, nondistended. EXTREMITIES: No cyanosis, or edema. Left BKA multiple lesions in both hands and lower extreme NEUROLOGICAL: Awake, alert, and oriented x 3. Non-focal. Laboratory Laboratory Tests Test 03/01/18 18:40 03/02/18 03:47 4/11/18 06:10 Sodium Level 121 121 121 White Blood Count 5.8 Red Blood Count 4.47 Hemoglobin 11.7 Hematocrit 33.9 Mean Corpuscular Volume 75.8 Mean Corpuscular Hemoglobin 26.1 Mean Corpuscular Hemoglobin Concent 34.5 Red Cell Distribution Width 17.7 Platelet Count 296 Mean Platelet Volume 7.9 Neutrophils (%) (Auto) 51.6 Lymphocytes (%) (Auto) 34.5 Monocytes (%) (Auto) 12.0 Eosinophils (%) (Auto) 1.4 Basophils (%) (Auto) 0.5 Neutrophils # (Auto) 3.0 Lymphocytes # (Auto) 2.0 Monocytes # (Auto) 0.7 Eosinophils # (Auto) 0.1 Basophils # (Auto) 0.0 CBC Comment DIFF FINAL Differential Comment Blood Urea Nitrogen 5 Creatinine 0.24 Random Glucose 76 Total Protein 6.2 Albumin 2.2 Calcium Level 7.6 Alkaline Phosphatase 90 Aspartate Amino Transf (AST/SGOT) 55 Alanine Aminotransferase (ALT/SGPT) 31 Total Bilirubin 0.5 Potassium Level 2.9 Chloride Level 88 Carbon Dioxide Level 20.7 Anion Gap 12 Estimat Glomerular Filtration Rate 313 Date/Time Source Procedure Growth Status 02/21/18 13:21 Blood Peripheral Aerobic Blood Culture - Final NO GROWTH IN 5 DAYS Complete 02/21/18 13:21 Blood Peripheral Anaerobic Blood Culture - Final NO GROWTH IN 5 DAYS Complete 02/21/18 13:11 Sputum Endotracheal Gram Stain - Final Complete 02/21/18 13:11 Sputum Culture - Final Klebsiella Pneumoniae Complete 02/26/18 11:15 Wound Foot Fungal Smear - Final NO FUNGAL ELEMENTS SEEN. Resulted 02/26/18 11:15 Wound Foot Fungal Culture Pending Resulted Result Diagram: 03/02/18 0610 03/02/18 0610 Imaging Last Impressions Head/Brain Mag Res Venography 03/02/18 0000 Signed Impressions: Service Date/Time: Friday, March 02, 2018 08:36 - CONCLUSION: No evidence for cerebral venous thrombosis. Ata Friedman MD FACR Chest X-Ray 03/01/18 0000 Signed Impressions: Service Date/Time: Thursday, March 01, 2018 11:16 - CONCLUSION: No acute disease. Francisco Figueroa MD Brain MRI 03/01/18 0000 Signed Impressions: Service Date/Time: Thursday, March 01, 2018 15:27 - CONCLUSION: 1. 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 MRV examination may be performed if there is significant persistent clinical concern regarding dural venous sinus thrombosis. 2. Otherwise, unremarkable MRI examination of the brain. Lenny Dee MD Liver Ultrasound 02/28/18 0000 Signed Impressions: Service Date/Time: Wednesday, February 28, 2018 09:14 - CONCLUSION: 1. Gallbladder sludge 2. Medical renal disease Floyd Villatoro MD Head CT 02/28/18 0000 Signed Impressions: Service Date/Time: Wednesday, February 28, 2018 12:31 - CONCLUSION: 1. No intracranial abnormalities seen. 2. Air within the soft tissues adjacent to the posterior and lateral aspects of the right maxillary sinus. Francisco Figueroa MD Abdomen X-Ray 02/22/18 0000 Signed Impressions: Service Date/Time: Thursday, February 22, 2018 17:47 - CONCLUSION: 1. NG tip in stomach. Kevin Wells MD Lower Extremity CT 02/21/18 0000 Signed Impressions: Service Date/Time: Wednesday, February 21, 2018 17:58 - CONCLUSION: 1. Subcutaneous edema in the right lower extremity as above. No discrete abscess. No air locules to suggest gas gangrene. Kevin Wells MD Tibia/Fibula X-Ray 02/20/18 0000 Signed Impressions: Service Date/Time: Tuesday, February 20, 2018 11:01 - CONCLUSION: Soft tissue swelling and irregularity with no radiopaque foreign body. Balaji Zimmerman MD Foot X-Ray 02/20/18 0000 Signed Impressions: Service Date/Time: Tuesday, February 20, 2018 11:00 - CONCLUSION: Soft tissue swelling with no radiopaque foreign body or underlying bony abnormality. 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, she has a low EF however no signs of congestive heart failure noted, patient was started on 3% hypertonic saline Continue to monitor sodium level (2) Polysubstance abuse ICD Codes: F19.10 - Other psychoactive substance abuse, uncomplicated Status: Acute Plan: Patient was counseled against (3) Bilateral leg ulcer ICD Codes: L97.919 - Non-pressure chronic ulcer of unspecified part of right lower leg with unspecified severity; L97.929 - Non-pressure chronic ulcer of unspecified part of left lower leg with unspecified severity Status: Acute Plan: Left BKA (4) Hypokalemia ICD Codes: E87.6 - Hypokalemia Plan: Continue to replace Problem Qualifiers (1) Bilateral leg ulcer: Qualified Codes: L97.919 - Non-pressure chronic ulcer of unspecified part of right lower leg with unspecified severity; L97.929 - Non-pressure chronic ulcer of unspecified part of left lower leg with unspecified severity Lebron Hill MD Mar 02, 2018 14:13
[2018-03-02 14:56] LABS: MAGNESIUM 1.5 MG/DL (1.5-2.5); PHOSPHORUS 1.4 MG/DL (2.5-4.9)
--- NOTE | 2018-03-02 15:43 | HHI.IDPN ---
Subjective Subjective Remarks ID COVERAGE is a 42 y/o CF with PMHx significant for recurrent cellulitis, Hepatitis C treatment naive, IV drug abuse, reported history of Crohn's disease , COPD. Patient has had multiple hospitalizations most recently in Oct 2017 and 2017 for recurrent bilateral LE cellulitis. 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 Cryoglobulins were detected in low amounts and AMIE was positive. Patient received IV antibiotics and wound care and was discharged to follow up with in wound care clinic. Patient was discharged to infusion clinic to receive dose of Dalbavancin on 01/07 at that time her wounds her superficial fewer and not as many with less evidence of infection. To complicate matters patient does not have a home and her last year. She has been treated with steroids for her vasculitis related non infected ulcers in the past. The rest of the history was obtained by review of medical records. With this background patient was brought in by ambulance from a temporary intermediate/living facility where she is staying for evaluation of bilateral leg pain and altered mental status. One of the other residents became concerned about the patient today because of the way she was acting. They noticed several sores on her bilateral lower extremities. The patient admitted to others that she abused drugs a day prior to admission. Due to worsening mentation patient was intubated for airway protection. ICU course: Patient has high grade fevers and foot appeared to be worsening due to concern for Necrotizing fascitis a Surgery consult was placed. Podiatry evaluated patient and a stat Vascular consult to has been placed. Gen Surgery evaluated patient with me. The general opinion seems to be non salvageable left leg but await Vascular opinion. Currently not on pressors. Remains sedated. UO good. Skin lesions noted on bilateral hands on dorsal aspect with blisters. Also tip of nose appears necrotic with surrounding erythema. ID consulted for evaluation of sepsis, Mment of LLE wet septic gangrene, Right foot heel gangrene and bilateral LE cellulitis. Notes reviewed Temps pk BP ok 02/27 had further revision of Left BKA and Right foot heel I&D in OR. Very agitated earlier, just got Ativan, currently sleeping Has good sats Mom at bedside No rash Extubated 02/27. Antibiotics Cefepime IV Vanco IV Lines Line sites with no e.o infection Past Medical History Past Medical History Crohn's disease per history Hepatitis C treatment melissa Recurrent cellulitis Past Surgical History Appendectomy Hysterectomy ? Some bowel surgery for Crohn's Allergies: Coded Allergies: codeine (Verified Allergy, Severe, 02/20/18) ketorolac (Verified Allergy, Severe, 02/20/18) penicillin G (Verified Allergy, Intermediate, Rash, 02/20/18) Objective . Vital Signs Date Time Temp Pulse Resp B/P (MAP) Pulse Ox O2 Delivery O2 Flow Rate FiO2 03/02/18 14:00 81 03/02/18 14:00 81 33 151/107 (122) 100 03/02/18 13:00 84 03/02/18 13:00 84 37 150/108 (122) 100 03/02/18 12:00 96.7 106 48 154/104 (121) 100 03/02/18 12:00 94 03/02/18 11:00 93 35 138/100 (113) 100 03/02/18 11:00 95 03/02/18 10:00 94 03/02/18 10:00 94 35 142/111 (121) 100 03/02/18 09:00 94 35 143/110 (121) 100 03/02/18 09:00 94 03/02/18 08:18 98 47 142/107 (119) 100 03/02/18 08:00 90 03/02/18 08:00 97.8 90 33 151/109 (123) 100 03/02/18 07:00 93 34 137/102 (114) 100 03/02/18 07:00 93 03/02/18 06:00 96 03/02/18 04:00 98.4 98 35 139/99 (112) 99 03/02/18 04:00 98 03/02/18 02:00 95 03/02/18 00:00 98.3 98 48 148/107 (121) 100 03/02/18 00:00 98 03/01/18 22:00 90 03/01/18 20:00 98.2 113 39 160/114 (129) 100 03/01/18 20:00 96 03/01/18 19:55 100 21 03/01/18 18:00 97.9 108 60 100 03/01/18 18:00 108 03/02/18 03/02/18 03/03/18 15:00 23:00 07:00 Intake Total 625 ml Balance 625 ml IV Total 625 ml . Laboratory Tests Test 03/01/18 06:00 03/02/18 06:10 White Blood Count 6.1 TH/MM3 5.8 TH/MM3 Red Blood Count 4.72 MIL/MM3 4.47 MIL/MM3 Hemoglobin 12.3 GM/DL 11.7 GM/DL Hematocrit 35.6 % 33.9 % Mean Corpuscular Volume 75.5 FL 75.8 FL Mean Corpuscular Hemoglobin 26.0 PG 26.1 PG Mean Corpuscular Hemoglobin Concent 34.4 % 34.5 % Red Cell Distribution Width 17.8 % 17.7 % Platelet Count 297 TH/MM3 296 TH/MM3 Mean Platelet Volume 8.0 FL 7.9 FL Neutrophils (%) (Auto) 57.4 % 51.6 % Lymphocytes (%) (Auto) 27.4 % 34.5 % Monocytes (%) (Auto) 13.1 % 12.0 % Eosinophils (%) (Auto) 1.5 % 1.4 % Basophils (%) (Auto) 0.6 % 0.5 % Neutrophils # (Auto) 3.5 TH/MM3 3.0 TH/MM3 Lymphocytes # (Auto) 1.7 TH/MM3 2.0 TH/MM3 Monocytes # (Auto) 0.8 TH/MM3 0.7 TH/MM3 Eosinophils # (Auto) 0.1 TH/MM3 0.1 TH/MM3 Basophils # (Auto) 0.0 TH/MM3 0.0 TH/MM3 CBC Comment DIFF FINAL DIFF FINAL Differential Comment Laboratory Tests Test 02/28/18 22:45 03/01/18 06:00 03/01/18 11:15 03/01/18 18:40 Potassium Level 3.5 MEQ/L 4.2 MEQ/L Blood Urea Nitrogen 4 MG/DL Creatinine 0.28 MG/DL Random Glucose 76 MG/DL Total Protein 6.9 GM/DL Albumin 2.4 GM/DL Calcium Level 8.2 MG/DL Phosphorus Level 1.6 MG/DL Magnesium Level 1.7 MG/DL Alkaline Phosphatase 109 U/L Aspartate Amino Transf (AST/SGOT) 94 U/L Alanine Aminotransferase (ALT/SGPT) 44 U/L Total Bilirubin 0.6 MG/DL Sodium Level 122 MEQ/L 121 MEQ/L Chloride Level 87 MEQ/L Carbon Dioxide Level 21.6 MEQ/L Anion Gap 13 MEQ/L Estimat Glomerular Filtration Rate 262 ML/MIN Serum Osmolality 250 MOSM/KG Test 03/02/18 03:47 03/02/18 06:10 03/02/18 12:32 Sodium Level 121 MEQ/L 121 MEQ/L 122 MEQ/L Blood Urea Nitrogen 5 MG/DL Creatinine 0.24 MG/DL Random Glucose 76 MG/DL Total Protein 6.2 GM/DL Albumin 2.2 GM/DL Calcium Level 7.6 MG/DL Alkaline Phosphatase 90 U/L Aspartate Amino Transf (AST/SGOT) 55 U/L Alanine Aminotransferase (ALT/SGPT) 31 U/L Total Bilirubin 0.5 MG/DL Potassium Level 2.9 MEQ/L Chloride Level 88 MEQ/L Carbon Dioxide Level 20.7 MEQ/L Anion Gap 12 MEQ/L Estimat Glomerular Filtration Rate 313 ML/MIN Phosphorus Level 1.4 MG/DL Magnesium Level 1.5 MG/DL Imaging Last Impressions Chest X-Ray 02/23/18 0600 Signed Impressions: Service Date/Time: Friday, February 23, 2018 02:40 - CONCLUSION: Satisfactory chest appearance Francisco Shabazz MD Abdomen X-Ray 02/22/18 0000 Signed Impressions: Service Date/Time: Thursday, February 22, 2018 17:47 - CONCLUSION: 1. NG tip in stomach. Kevin Wells MD Lower Extremity CT 02/21/18 0000 Signed Impressions: Service Date/Time: Wednesday, February 21, 2018 17:58 - CONCLUSION: 1. Subcutaneous edema in the right lower extremity as above. No discrete abscess. No air locules to suggest gas gangrene. Kevin Wells MD Tibia/Fibula X-Ray 02/20/18 0000 Signed Impressions: Service Date/Time: Tuesday, February 20, 2018 11:01 - CONCLUSION: Soft tissue swelling and irregularity with no radiopaque foreign body. Balaji Zimmerman MD Head CT 02/20/18 0000 Signed Impressions: Service Date/Time: Tuesday, February 20, 2018 11:49 - CONCLUSION: Suboptimal exam secondary to streak and motion artifact with no evidence of hemorrhage or mass effect. Balaji Zimmerman MD Foot X-Ray 02/20/18 0000 Signed Impressions: Service Date/Time: Tuesday, February 20, 2018 11:00 - CONCLUSION: Soft tissue swelling with no radiopaque foreign body or underlying bony abnormality. Balaji Zimmerman MD Physical Exam GENERAL: Thin female, looks older tho stated age, NAD SKIN: Cool and dry. Multiple wounds both hands, tip of nose and R foot HEAD: Atraumatic. Normocephalic. No temporal or scalp tenderness. EYES: Pupils equal round and reactive. No scleral icterus. No injection or drainage. ENT: No nasal discharge, has lesion tip of nose NECK: Trachea midline. Supple, nontender, no meningeal signs. CARDIOVASCULAR: Regular rate and rhythm without murmurs, gallops, or rubs. RESPIRATORY: Clear to auscultation. Breath sounds equal bilaterally. No wheezes , rales, or rhonchi. GASTROINTESTINAL: Abdomen soft, non-tender, nondistended. MUSCULOSKELETAL: Dry dressing LBKA stump. Wounds dry R foot. UE hand dorsum with areas of blackening and erythema and blisters noted. Tip of nose with area of blackening noted. NEUROLOGICAL: Sleeping after Ativan administration Psych unable to assess IV line sites with no e.o infection. Assessment & Plan Remarks Sepsis present on admission, better MSSA foot infection Left leg and foot with cellulitis, abscess and gangrene. s/p BKA. Right foot heel with cellulitis and gangrene Bilateral Hand cellulitis with blisters/wounds. Kleb pneumo UTI. Bilateral LE cellulitis with blisters. Clinically looks less likely to be Necrotizing fascitis and no gas on imaging. Does not appear to be spreading beyond margins demarcated with marker. Hepatitis C Cryoglobulinemia Vasculitis : AMIE positive. IVDA Acute resp failure on vent. Penicillin allergy: rash. has tolerated Cephalosporins in past. Recs: Continue Ancef IV Continue Levaquin oral. Follow cultures to adjust antibiotics. follow clinically if areas on face and hands worsen consider hand surgery consult and plastics for nose. Monitor progress D/W RN Spoke with Mireille Dempsey MD Mar 02, 2018 15:43
[2018-03-02] MEDS ORDERED: 3% SALINE INJ 250 ML IV SCH (16:45)
--- NOTE | 2018-03-02 17:21 | PD.WCN.NOT ---
Wound Consult Description: Kathy Cortez RN requested wound care nurse come assess patient's bottom for staging of possible pressure injury Communicated with: [place] [facility] [place]ena Oneill [place] [facility] and Doctor lA Recommendation: 1.Please cleanse wound to sacral area with normal saline only and pat dry. 2. Apply Santyl ointment linda thickness to wound bed 3. Apply skin barrier film (skin prep) to periwound 4. Apply bordered gauze over wound 5. Change dressing daily 6. Please turn patient from side to side, do not allow patient to lay on back 7. Please use ultra sorb pads in a staggered fashion for incontinence management. 8. Please DO NOT place cotton under pads on low airloss Additional Information: Kathy Cortez RN requested wound care nurse assess patient. Skin breakdown has been noted by nursing staff bottom. Assessed patient with Laura [facility], and repairer typewriter. Patinet was turned further toward the L side for wound assessment. Patinet noted with wound to sacrum measuring 6 cm x 4.5cm x eschar. Wound presents with ~40% pink tissue and ~60% island of dry eschar/ slough. Wound is dry without active drainage or odor. Periwound presents with both blanchable and non blanchable erythema. Wound margins are well defined from 8 to 12 o'clock with jagged uneven wound margins from 1 to 7 o'clock. Wound etiology presents mixed, moisture, pressure and friction.Cleansed wound with normal saline and patted dry. Wound was left open to air. Patient was positioned off bottom and blanket put back in place for comfort. RN to apply dressing when supplies arrive. Kady Chaparro [facility] Mar 02, 2018 17:21
[2018-03-02] MEDS: COLLAGENASE OINT 30 GM TUBE TOPICAL SCH (17:30)
[2018-03-02] MEDS: ACETAMINOPHEN/HYDROcodone 325 MG/10 MG TAB PO PRN (19:57)
--- NOTE | 2018-03-02 21:55 | HHI.PR ---
Subjective Remarks Patient seen bedside with family present. Significant weight loss noted from last admission. Objective Vital Signs Date Time Temp Pulse Resp B/P (MAP) Pulse Ox O2 Delivery O2 Flow Rate FiO2 03/02/18 21:33 20 03/02/18 20:00 95 03/02/18 20:00 97.5 95 28 150/98 (115) 100 03/02/18 19:00 105 03/02/18 18:00 96 03/02/18 17:00 96 03/02/18 17:00 96 33 152/109 (123) 100 03/02/18 16:41 100 03/02/18 16:00 97.8 90 34 138/89 (105) 100 03/02/18 16:00 90 03/02/18 15:00 91 33 158/113 (128) 100 03/02/18 15:00 91 03/02/18 14:00 81 03/02/18 14:00 81 33 151/107 (122) 100 03/02/18 13:00 84 03/02/18 13:00 84 37 150/108 (122) 100 03/02/18 12:00 96.7 106 48 154/104 (121) 100 03/02/18 12:00 94 03/02/18 11:00 93 35 138/100 (113) 100 03/02/18 11:00 95 03/02/18 10:00 94 03/02/18 10:00 94 35 142/111 (121) 100 03/02/18 09:00 94 35 143/110 (121) 100 03/02/18 09:00 94 03/02/18 08:18 98 47 142/107 (119) 100 03/02/18 08:00 90 03/02/18 08:00 97.8 90 33 151/109 (123) 100 03/02/18 07:00 93 34 137/102 (114) 100 03/02/18 07:00 93 03/02/18 06:00 96 03/02/18 04:00 98.4 98 35 139/99 (112) 99 03/02/18 04:00 98 03/02/18 02:00 95 03/02/18 00:00 98.3 98 48 148/107 (121) 100 03/02/18 00:00 98 03/01/18 22:00 90 I/O 03/01/18 03/01/18 03/01/18 03/02/18 03/02/18 03/02/18 07:00 15:00 23:00 07:00 15:00 23:00 Intake Total 0 ml 625 ml 300 ml Output Total 1500 ml 2300 ml 1600 ml 1475 ml Balance -1500 ml -2300 ml -1600 ml 625 ml -1175 ml Intake Oral 0 ml 180 ml IV Total 625 ml 120 ml Output Urine Total 1200 ml 2000 ml 1200 ml 1475 ml Stool Total 300 ml 300 ml 400 ml # Bowel Movements 6 5 Result Diagram: 03/02/18 0610 03/02/18 1720 Imaging Last Impressions Head/Brain Mag Res Venography 03/02/18 0000 Signed Impressions: Service Date/Time: Friday, March 02, 2018 08:36 - CONCLUSION: No evidence for cerebral venous thrombosis. Ata Friedman MD FACR Chest X-Ray 03/01/18 0000 Signed Impressions: Service Date/Time: Thursday, March 01, 2018 11:16 - CONCLUSION: No acute disease. Francisco Figueroa MD Brain MRI 03/01/18 0000 Signed Impressions: Service Date/Time: Thursday, March 01, 2018 15:27 - CONCLUSION: 1. 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 MRV examination may be performed if there is significant persistent clinical concern regarding dural venous sinus thrombosis. 2. Otherwise, unremarkable MRI examination of the brain. Lenny Dee MD Liver Ultrasound 02/28/18 0000 Signed Impressions: Service Date/Time: Wednesday, February 28, 2018 09:14 - CONCLUSION: 1. Gallbladder sludge 2. Medical renal disease Floyd Villatoro MD Head CT 02/28/18 0000 Signed Impressions: Service Date/Time: Wednesday, February 28, 2018 12:31 - CONCLUSION: 1. No intracranial abnormalities seen. 2. Air within the soft tissues adjacent to the posterior and lateral aspects of the right maxillary sinus. Francisco Figueroa MD Abdomen X-Ray 02/22/18 0000 Signed Impressions: Service Date/Time: Thursday, February 22, 2018 17:47 - CONCLUSION: 1. NG tip in stomach. Kevin Wells MD Lower Extremity CT 02/21/18 0000 Signed Impressions: Service Date/Time: Wednesday, February 21, 2018 17:58 - CONCLUSION: 1. Subcutaneous edema in the right lower extremity as above. No discrete abscess. No air locules to suggest gas gangrene. Kevin Wells MD Tibia/Fibula X-Ray 02/20/18 0000 Signed Impressions: Service Date/Time: Tuesday, February 20, 2018 11:01 - CONCLUSION: Soft tissue swelling and irregularity with no radiopaque foreign body. Balaji Zimmerman MD Foot X-Ray 02/20/18 0000 Signed Impressions: Service Date/Time: Tuesday, February 20, 2018 11:00 - CONCLUSION: Soft tissue swelling with no radiopaque foreign body or underlying bony abnormality. Balaji Zimmerman MD Procedures s/p Left BKA s/p Right ulcer debridement to heel and lower extremity Other Results Microbiology Date/Time Source Procedure Growth Status 02/21/18 13:21 Blood Peripheral Aerobic Blood Culture - Final NO GROWTH IN 5 DAYS Complete 02/21/18 13:21 Blood Peripheral Anaerobic Blood Culture - Final NO GROWTH IN 5 DAYS Complete 02/21/18 13:11 Sputum Endotracheal Gram Stain - Final Complete 02/21/18 13:11 Sputum Culture - Final Klebsiella Pneumoniae Complete 02/26/18 11:15 Wound Foot Fungal Smear - Final NO FUNGAL ELEMENTS SEEN. Resulted 02/26/18 11:15 Wound Foot Fungal Culture Pending Resulted Objective Remarks Multiple eschars noted to right lower extremity, heel eschar, anterior foot, ankle and leg eschar. Multiple puncture wounds noted. No increased erythema and edema noted to right lower extremity. Non palpable pulses to right lower extremity. Medications and IVs Current Medications Medications (Trade) Dose Ordered Sig/[place] Route Start Time Stop Time Status Last Admin (NS Flush) 2 ml UNSCH PRN IV FLUSH 02/20/18 15:00 (NS Flush) 2 ml BID IV FLUSH 02/20/18 21:00 03/02/18 19:55 (Tylenol) 650 mg Q6H PRN PO 02/20/18 15:00 (Ativan Inj) 2 mg Q4H PRN IV PUSH 02/20/18 15:00 03/02/18 19:57 (Zofran Inj) 4 mg Q6H PRN IV PUSH 02/20/18 15:00 02/27/18 20:06 (Duoneb Neb) 1 ampule Q4HR NEB PRN INH 02/20/18 15:00 02/27/18 03:21 (Heparin Inj) 5,000 units Q12H SQ 02/20/18 16:00 03/02/18 16:16 Miscellaneous Information 1 Q361D XX 02/20/18 15:00 (Chlorhexidine 2% Cloth) Taper DAILY@04 TOP 02/21/18 04:00 02/17/19 03:59 03/02/18 04:00 (Chlorhexidine 2% Cloth) 3 pack UNSCH PRN TOP 02/20/18 15:00 (Damari-Colace) 1 tab BID PO 02/21/18 09:00 02/28/18 21:27 (Milk Of Magnesia Liq) 30 ml Q12H PRN PO 02/20/18 15:00 (Senokot) 17.2 mg Q12H PRN PO 02/20/18 15:00 (Dulcolax Supp) 10 mg DAILY PRN RECTAL 02/20/18 15:00 (Lactulose Liq) 30 ml DAILY PRN PO 02/20/18 15:00 02/25/18 20:14 Potassium Chloride 100 ml @ 50 mls/hr Q2H PRN IV 02/20/18 15:00 Potassium Chloride 100 ml @ 50 mls/hr Q2H PRN IV 02/20/18 15:00 03/02/18 12:11 (K-Lyte Cl Eff) 50 meq UNSCH PRN PO 02/20/18 15:00 Potassium Chloride 100 ml @ 25 mls/hr UNSCH PRN IV 02/20/18 15:00 Potassium Chloride 100 ml @ 50 mls/hr Q2H PRN IV 02/20/18 15:00 03/01/18 03:39 Magnesium Sulfate 4 gm/Sodium Chloride 100 ml @ 50 mls/hr UNSCH PRN IV 02/20/18 15:00 (Mag-Ox) 800 mg UNSCH PRN PO 02/20/18 15:00 Magnesium Sulfate 2 gm/Sodium Chloride 100 ml @ 50 mls/hr UNSCH PRN IV 02/20/18 15:00 02/25/18 06:37 (K-Phos) 2,000 mg Q4H PRN PO 02/20/18 15:00 Sodium Phosphate 30 mmol/Sodium Chloride 250 ml @ 42 mls/hr UNSCH PRN IV 02/20/18 15:00 (K-Phos) 2,000 mg UNSCH PRN PO/TUBE 02/20/18 15:00 Potassium Phosphate 30 mmol/ Sodium Chloride 260 ml @ 42 mls/hr UNSCH PRN IV 02/20/18 15:00 (Lopressor Inj) 5 mg Q6H PRN IV PUSH 02/20/18 16:45 03/02/18 04:12 (Trandate Inj) 10 mg Q4H PRN IV PUSH 02/20/18 16:45 03/02/18 06:21 (Peridex 0.12% Liq) 15 ml BID@08,20 MT 02/20/18 20:00 03/02/18 19:55 Acetaminophen 100 ml @ 400 mls/hr Q6H PRN IV 02/21/18 13:00 (Pepcid Liq) 20 mg BID NG 02/22/18 21:00 03/02/18 19:56 (Tears Naturale Opth Soln) 1 drop Q4H PRN EACH EYE 02/22/18 13:00 02/23/18 07:47 Cefazolin Sodium 2000 mg/Sodium Chloride 120 ml @ 240 mls/hr Q8H IV 02/23/18 20:00 03/02/18 19:55 (Sodium Chloride) 1 gm DAILY PO 02/24/18 18:00 02/28/18 09:00 ([place] 10-325 Mg) 1 tab Q6H PRN PO 02/25/18 18:00 03/02/18 19:57 (Levaquin) 500 mg DAILY@1100 PO 02/28/18 11:00 03/02/18 10:14 (Prinivil) 5 mg DAILY PO 02/28/18 09:00 03/02/18 10:15 (D50w (Vial) Inj) 50 ml UNSCH PRN IV PUSH 02/28/18 08:45 (Glucagon Inj) 1 mg UNSCH PRN OTHER 02/28/18 08:45 (NovoLIN R SUPPLEMENTAL SCALE) 1 Q6H SQ 02/28/18 10:00 Levetriacetam 500 mg/Sodium Chloride 105 ml @ 420 mls/hr Q12H IV 02/28/18 12:00 03/02/18 12:21 (Coreg) 3.125 mg Q12HR PO 03/01/18 09:00 03/02/18 19:57 Sodium Chloride 250 ml @ 30 mls/hr CONTINUOUS IV 03/02/18 16:45 (Santyl Oint) 1 applic DAILY TOPICAL 03/02/18 17:30 03/02/18 17:30 Assessment and Plan Assessment and Plan 42 year old female s/p left BKA with right LE multiple eschars Patient examined and evaluated Eschar stable Recommend continued offloading of right heel ulcer Dry sterile dressing to right LE recommended Poor prognosis for right LE Steph Zhou DPM Mar 02, 2018 21:55
[2018-03-03] VITALS (20 sets, daily range): BP systolic 115–160; BP diastolic 82–113; PULSE 80–107; RESP 18–33; TEMP 94–98.2; O2SAT 96–100
[2018-03-03] MEDS: levETIRAcetam INJ 500 MG in SODIUM CHLORIDE 0.9% INJ 100 ML IV SCH ×3 (01:01→23:53)
[2018-03-03] MEDS: LORazepam 2 MG/ML VIAL IV PUSH PRN ×4 (01:01→22:12)
[2018-03-03] MEDS: INSULIN NovoLIN REGULAR SUPPLEMENTAL SCALE SQ SCH ×4 (04:00→22:00)
[2018-03-03] MEDS: CHLORHEXIDINE GLUCONATE 2 % 1 PACK (2 CLOTHS) TOP SCH (04:00)
[2018-03-03] MEDS: CEFAZOLIN INJ 2,000 MG in SODIUM CHLORIDE 0.9% INJ 100 ML IV SCH ×3 (04:14→20:41)
[2018-03-03] MEDS: ACETAMINOPHEN/HYDROcodone 325 MG/10 MG TAB PO PRN ×4 (04:14→23:54)
[2018-03-03] MEDS: HEPARIN SODIUM - SQ 10,000 UNITS/ML VIAL SQ SCH ×2 (04:14→17:56)
[2018-03-03 05:16] LABS: AUTOMATED NEUTROPHIL # 2.1 TH/MM3 (1.8-7.7); BASOPHIL % 0.7 % (0.0-2.0); EOSINOPHIL # 0.1 TH/MM3 (0-0.4); EOSINOPHIL % 1.5 % (0.0-4.0); HEMATOCRIT 31.5 % (35.0-46.0); HEMOGLOBIN 10.9 GM/DL (11.6-15.3); LYMPH % 36.1 % (9.0-44.0); LYMPHOCYTE # 1.5 TH/MM3 (1.0-4.8); MEAN CELL VOLUME 75.5 FL (80.0-100.0); MEAN CORPUSCULAR HEMOGLOBIN 26.2 PG (27.0-34.0); MEAN CORPUSCULAR HGB CONC 34.6 % (32.0-36.0); MEAN PLATELET VOLUME 7.7 FL (7.0-11.0); MONO % 10.8 % (0.0-8.0); MONOCYTE # 0.4 TH/MM3 (0-0.9); NEUT % 50.9 % (16.0-70.0); PLATELET COUNT 278 TH/MM3 (150-450); RED BLOOD COUNT 4.17 MIL/MM3 (4.00-5.30); RED CELL DISTRIBUTION WIDTH 18.1 % (11.6-17.2); WHITE BLOOD COUNT 4.1 TH/MM3 (4.0-11.0)
[2018-03-03 05:36] LABS: ALBUMIN 2.4 GM/DL (3.4-5.0); ALT (GPT) 27 U/L (10-53); AST (GOT) 41 U/L (15-37); BICARBONATE 24.1 MEQ/L (21.0-32.0); BLOOD UREA NITROGEN 2 MG/DL (7-18); CHLORIDE 92 MEQ/L (98-107); CREATININE 0.24 MG/DL (0.50-1.00); GLOMERULAR FILTRATION RATE 313 ML/MIN (>89); GLUCOSE,RANDOM 86 MG/DL (74-106); MAGNESIUM 1.6 MG/DL (1.5-2.5); SODIUM (NA) 126 MEQ/L (136-145)
[2018-03-03 05:38] LABS: ALKALINE PHOSPHATASE 88 U/L (45-117); PHOSPHORUS 1.9 MG/DL (2.5-4.9); TOTAL BILIRUBIN ADULT 0.5 MG/DL (0.2-1.0)
--- NOTE | 2018-03-03 07:34 | HHI.CCPN ---
Subjective Remarks/Hospital Course 02/20: 42-year-old female with history of polysubstance abuse, IVDU, brought in by ambulance from a temporary senior care/living facility where she is staying for evaluation of bilateral leg pain and altered mental status. One of the other residents became concerned about the patient today because of the way she was acting. They noticed several sores on her bilateral lower extremities. The patient admits to IV drug abuse, last use was yesterday. She complains of pain in her bilateral legs, however is otherwise a very poor historian writhing in bed moaning in pain. Chart review shows that the patient has been admitted for this in the past. 02/21: Sedated, easily arousable, orally intubated on mechanical ventilation. Spiked a temperature 101.5 for which Syed cultures ordered and we are initiating empiric vancomycin and Levaquin. 2-D echo ordered to evaluate heart valves. She had a normal white count this morning. Wounds or bilateral lower extremities unchanged since admission and appeared to be chronic. 02/22: T-max 99.4. Patient underwent TTE this a.m., results pending. Consultation and evaluation performed by podiatry this a.m., vascular surgery urgently consulted. Plan scheduling for left BKA today. Multiple punctate lesions, possible emboli type wounds bilateral upper and lower extremities, as well as left nare. Patient remains sedated and intubated on fentanyl and Versed infusions currently. 02/23: CPAP trials initiated today, patient tolerated for approximately 30 minutes. Tube feeds initiated Jevity 1.5. Wound VAC to left BKA with minimal drainage. Patient to receive 2 units PRBCs per vascular surgery. 02/24: Afebrile. She remains sedated and intubated. left BKA wound VAC intact. Discussion with for return to OR tomorrow for wound closure. Plan with Dr. Philipp Ramos possible debridement of right heel also schedule tentatively for tomorrow. Patient tolerating tube feeds. CPAP trials tolerated today. Patient continues on normal saline infusion with KCl@ 100cc/ hr. Plan for NPO status tonight sodium level 134. Salt Tabs added to medication regimen. 02/25: Afebrile. No acute events overnight the patient remains sedated. Plan for scheduled revision and wound closure of left BKA with Dr. Cabrera as well as debridement of right heel with Dr. Ramos. Patient continues on intermittent CPAP trials. Tolerating tube feeding. 02/26: Patient underwent revision and wound closure of left BKA, as well as debridement right heel. Posttransfusion CBC is stable. Plan initiation of CPAP trials this afternoon, plan to transition to Precedex for SBT trial in a.m. for possible extubation secondary to high opioid requirements secondary to history of polysubstance abuse.PO narcotics added to medication regimen. IV fluids discontinued. 02/27: Currently tolerating CPAP 08/26, reduce pressure support of 5 if tolerated for 45 minutes get weaning parameters with possible extubation. Otherwise minimize sedation. Status post second stage left below-knee amputation. May need right-sided amputation also per Dr. Holder's note 02/28 Patient s/p extubation yesterday on room air oxygen when seen, afebrile. On no drips 03/01 Patient had ? seizure yesterday for MRI brain today per neuro. CT brain yesterday showed no acute findings, EEG showed mild encephalopathy no epileptic activity 03/02 Patient is lethargic given Ativan 4mg total during night for agitation. For MRV brain per neuro. 03/03 Patient is more awake and alert this morning. On 3% saline with Na level 126 from 122 yesterday. MRV yesterday showed no cerebral venous thrombosis . Objective Vital Signs Date Time Temp Pulse Resp B/P (MAP) Pulse Ox O2 Delivery O2 Flow Rate FiO2 03/03/18 06:27 19 03/03/18 06:00 87 03/03/18 04:00 98.2 160/111 (127) 100 03/01/18 19:55 21 03/01/18 09:57 Nasal Cannula 2.00 Intake and Output 03/03/18 03/03/18 03/04/18 08:00 16:00 00:00 Intake Total 640 ml Output Total 1150 ml Balance -510 ml Result Diagram: 03/03/18 0450 03/03/18 0450 Other Results Laboratory Tests Test 03/02/18 12:32 03/02/18 17:20 03/02/18 20:50 03/03/18 01:00 Sodium Level 122 MEQ/L 122 MEQ/L 123 MEQ/L 125 MEQ/L Phosphorus Level 1.4 MG/DL Magnesium Level 1.5 MG/DL Potassium Level 3.7 MEQ/L Test 03/03/18 04:50 White Blood Count 4.1 TH/MM3 Red Blood Count 4.17 MIL/MM3 Hemoglobin 10.9 GM/DL Hematocrit 31.5 % Mean Corpuscular Volume 75.5 FL Mean Corpuscular Hemoglobin 26.2 PG Mean Corpuscular Hemoglobin Concent 34.6 % Red Cell Distribution Width 18.1 % Platelet Count 278 TH/MM3 Mean Platelet Volume 7.7 FL Neutrophils (%) (Auto) 50.9 % Lymphocytes (%) (Auto) 36.1 % Monocytes (%) (Auto) 10.8 % Eosinophils (%) (Auto) 1.5 % Basophils (%) (Auto) 0.7 % Neutrophils # (Auto) 2.1 TH/MM3 Lymphocytes # (Auto) 1.5 TH/MM3 Monocytes # (Auto) 0.4 TH/MM3 Eosinophils # (Auto) 0.1 TH/MM3 Basophils # (Auto) 0.0 TH/MM3 CBC Comment DIFF FINAL Differential Comment Sodium Level 127 MEQ/L Blood Urea Nitrogen 2 MG/DL Creatinine 0.24 MG/DL Random Glucose 86 MG/DL Total Protein 6.0 GM/DL Albumin 2.4 GM/DL Calcium Level 8.0 MG/DL Phosphorus Level 1.9 MG/DL Magnesium Level 1.6 MG/DL Alkaline Phosphatase 88 U/L Aspartate Amino Transf (AST/SGOT) 41 U/L Alanine Aminotransferase (ALT/SGPT) 27 U/L Total Bilirubin 0.5 MG/DL Potassium Level 3.1 MEQ/L Chloride Level 92 MEQ/L Carbon Dioxide Level 24.1 MEQ/L Anion Gap 10 MEQ/L Estimat Glomerular Filtration Rate 313 ML/MIN Imaging Last Impressions Head/Brain Mag Res Venography 03/02/18 0000 Signed Impressions: Service Date/Time: Friday, March 02, 2018 08:36 - CONCLUSION: No evidence for cerebral venous thrombosis. Ata Friedman MD FACR Chest X-Ray 03/01/18 0000 Signed Impressions: Service Date/Time: Thursday, March 01, 2018 11:16 - CONCLUSION: No acute disease. Francisco Figueroa MD Brain MRI 03/01/18 0000 Signed Impressions: Service Date/Time: Thursday, March 01, 2018 15:27 - CONCLUSION: 1. 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 MRV examination may be performed if there is significant persistent clinical concern regarding dural venous sinus thrombosis. 2. Otherwise, unremarkable MRI examination of the brain. Lenny Dee MD Liver Ultrasound 02/28/18 0000 Signed Impressions: Service Date/Time: Wednesday, February 28, 2018 09:14 - CONCLUSION: 1. Gallbladder sludge 2. Medical renal disease Floyd Villatoro MD Head CT 02/28/18 0000 Signed Impressions: Service Date/Time: Wednesday, February 28, 2018 12:31 - CONCLUSION: 1. No intracranial abnormalities seen. 2. Air within the soft tissues adjacent to the posterior and lateral aspects of the right maxillary sinus. Francisco Figueroa MD Abdomen X-Ray 02/22/18 0000 Signed Impressions: Service Date/Time: Thursday, February 22, 2018 17:47 - CONCLUSION: 1. NG tip in stomach. Kevin Wells MD Lower Extremity CT 02/21/18 0000 Signed Impressions: Service Date/Time: Wednesday, February 21, 2018 17:58 - CONCLUSION: 1. Subcutaneous edema in the right lower extremity as above. No discrete abscess. No air locules to suggest gas gangrene. Kevin Wells MD Tibia/Fibula X-Ray 02/20/18 0000 Signed Impressions: Service Date/Time: Tuesday, February 20, 2018 11:01 - CONCLUSION: Soft tissue swelling and irregularity with no radiopaque foreign body. Balaji Zimmerman MD Foot X-Ray 02/20/18 0000 Signed Impressions: Service Date/Time: Tuesday, February 20, 2018 11:00 - CONCLUSION: Soft tissue swelling with no radiopaque foreign body or underlying bony abnormality. Balaji Zimmerman MD Procedures 02/22 left BKA 02/26 revision and wound closure left BKA and right heel debridement Objective Remarks Physical exam GENERAL: Well-developed, cachectic appearing lying in bed in NAD SKIN: Several wounds/ulcerations to bilateral lower extremities with surrounding ecchymosis, no purulent drainage, no crepitus, no fluctuance or induration. s/p L BKA HEAD: Atraumatic. Normocephalic. EYES: Pupils equal and round, 3 mm, reactive to light. ENT: Mucous membranes pink and dry. NECK: Trachea midline. No JVD. No nuchal rigidity. CARDIOVASCULAR: S1-S2 regular, no gallop or murmur. No murmur appreciated. RESPIRATORY: Orally intubated on mechanical ventilation. Clear to auscultation. Breath sounds equal bilaterally. GASTROINTESTINAL: Abdomen soft, non-tender, nondistended. MUSCULOSKELETAL: Skin exam as above s/p L BKA. Multiple large blistering right lower extremities wounds. Multiple petechiae bilateral hands with blistering NEUROLOGICAL: Awake and alert A/P Assessment and Plan Assessment 42 year old female: Resp Insuff Encephalopathy secondary to substance abuse Hyponatremia Polysubstance abuse positive for amphetamines, cocaine, benzodiazepine, opioids Fever with suspected sepsis Left LLE with cellulitis, abscess and gangrene. s/p BKA. History of IV drug use Sinus Tachycardia Uncontrolled hypertension Hypoalbuminemia Malnutrition Postoperative pain Seizures Plan: Neuro: Monitor neuro status, UDS: Cocaine, Amphetamines, Opiates, Benzos [place] every 4 hours as needed for pain control status post BKA [place] 10-325 q 6hr on Keppra, Neuro is following. 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 Coreg 3.125mg BID, On Lopressor/Labetalol IV PRN 02/22 2-D echo EF 25-30% Pulmonary: Oxygen keep sats >92% Bronchodilators, aspiration precautions CXR 03/01: No acute disease GI/liver: On PO diet per speech Elevated AST, US liver: Gallbladder sludge. Medical renal disease Hepatitis profile reactive Hep C IgG ab Renal/: Monitor renal function, I/O's, electrolytes replacement per protocol. TSH: 1.58. Will need K, phos , Mag replacement today on 3% saline @30ml/hr, monitor sodium level Q4 hr, renal is following- Dr. Hill serum osm: 250, urine osm: 627 likely SIADH ID: ID following, on Cefazolin and Levaquin Status post left BKA Wound care consulted for lower extremity leg wounds. Wound culture-staph aureus Sputum culture-Klebsiella C-diff PCR negative on 03/01 Endocrine: SSI for glycemic control if needed. Heme: Follow CBC. Transfuse for hemoglobin less than 8 Msk: Vascular surgery following , S/P left BKA. Prophylaxis:SQ Heparin, SCDs for DVT prophylaxis , on Pepcid for GI prophylaxis Lines: Right infuse A port Level 2 Louie Siddiqui MD Mar 03, 2018 07:34
[2018-03-03] MEDS: CHLORHEXIDINE 0.12% (ORAL KIT) 15 ML CUP MT SCH ×2 (08:00→20:00)
[2018-03-03] MEDS ORDERED: POTASSIUM PHOSPHATE INJ 30 MMOL in SODIUM CHLOR 0.9% 250 ML INJ 250 ML IV PRN (08:00)
[2018-03-03] MEDS ORDERED: MAGNESIUM SULFATE INJ 2 GM in SODIUM CHLORIDE 0.9% INJ 96 ML IV PRN (08:00)
[2018-03-03] MEDS: DOCUSATE SODIUM 50 MG/SENNA 8.6 MG TAB PO SCH ×2 (09:00→20:45)
[2018-03-03] MEDS: SODIUM CHLORIDE 1 GRAM TAB PO SCH (09:00)
[2018-03-03] MEDS: LISINOPRIL 5 MG TAB PO SCH (09:11)
[2018-03-03] MEDS: SODIUM CHLORIDE 0.9% FLUSH 10 ML FLUSH IV FLUSH SCH ×2 (09:11→20:42)
[2018-03-03] MEDS: COLLAGENASE OINT 30 GM TUBE TOPICAL SCH (09:11)
[2018-03-03] MEDS: CARVEDILOL 3.125 MG TAB PO SCH ×2 (09:11→20:44)
[2018-03-03] MEDS: FAMOTIDINE 40 MG/5 ML LIQ 50 ML BTL NG SCH ×2 (09:14→20:44)
[2018-03-03] MEDS: LEVOFLOXACIN 500 MG TAB PO SCH (11:29)
--- NOTE | 2018-03-03 13:45 | PD.CAR.PN ---
CVT Progress Note Subjective/Hospital Course: 42-year-old female intubated ventilated and sedated Patient is apparently a IV drug abuser was brought in hypotensive and septic to our institution is currently under care Podiatry was consulted for evaluation of the feet and spoke with Dr. Ramos about it On exam patient has palpable bilateral femoral pulses and palpable popliteal pulses on the right side posterior tibial is palpable dorsalis pedis is by Doppler patient has multiple ulcers and necrotic areas over the right foot. On the left foot I can Doppler posterior tibial pulse and dorsalis pedis pulse but the entire foot is at this point involved in gangrene which has started from the skin down and that this time the entire foot is essentially black Fluid covered bulla and gangrenous soft tissue is going all the way down to the tendons and gangrene involves entire foot from the metatarsals, over the metatarsals to the tarsals and to the ankle and then over to the heel. Toes are spared. This is a result of multiple injections in this area and gangrenous spread. This patient clearly has inflow vessels which are open but she is perfusing a devitalized foot She needs immediate amputation patient will undergo two-stage amputation in the guillotine fashion with secondary closure in a few days. I fully agree with Dr. 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 At the same time I will debride few of these necrotic areas It should be noted that patient's blood supply to the foot was severely compromised and that vessels below the level of the knee look really diseased fibrotic and the only true viable vessel is anterior tibial 02/24/2018 Patient slightly improved Hemodynamically stable We will take him tomorrow for revision resection and closure of the left BKA stump 02/25/2018 Patient with the guillotine amputation of left leg We will take for closure tomorrow for closure of the BKA stump and debridement Today, due to scheduling conflicts and emergencies surgery had to be postponed. 02/27/2018 Status post second stage left below-knee amputation with closure and advancement of skin flap Dressing clean and dry Discussed case with Dr. Ramos and is more and more likely that patient will require amputation on the right side as well 02/28/2018 Status post BKA closure. Dressing intact clean We will keep dressing on until tomorrow and then remove Patient might need right below-knee amputation in the future, depending on how the debrided areas heal 03/03/2018 Daily dressing change Stump is clean and dry The plastic advancement flap is nicely perfused on the bottom of the stump Unfortunately patient is bending her leg and hitting against the bed so I have instructed him to try to have her move the leg and keep it more straight I would avoid putting a posterior splint on her considering the quality of her skin I discussed this at length with the patient's mother and there is still significant chance the patient will need a right below-knee amputation and if left below-knee develops decubitus ulcer than patient will need an above-knee amputation on the left side Right now everything looks okay continue care will see how it works out Objective: Vital Signs Date Time Temp Pulse Resp B/P (MAP) Pulse Ox O2 Delivery O2 Flow Rate FiO2 03/03/18 11:00 84 03/03/18 11:00 84 24 157/111 (126) 100 03/03/18 10:00 87 03/03/18 10:00 87 33 151/110 (124) 100 03/03/18 09:00 88 32 147/107 (120) 100 03/03/18 09:00 80 03/03/18 08:10 21 03/03/18 08:00 94.6 82 24 148/113 (125) 03/03/18 08:00 82 03/03/18 07:00 84 03/03/18 07:00 84 23 144/100 (115) 03/03/18 06:27 19 03/03/18 06:00 87 03/03/18 04:00 85 03/03/18 04:00 98.2 85 25 160/111 (127) 100 03/03/18 02:00 88 03/03/18 00:00 98.0 86 26 137/98 (111) 98 03/03/18 00:00 86 03/02/18 22:00 90 03/02/18 20:00 95 03/02/18 20:00 97.5 95 28 150/98 (115) 100 03/02/18 19:00 105 03/02/18 18:00 96 03/02/18 17:00 96 03/02/18 17:00 96 33 152/109 (123) 100 03/02/18 16:41 100 03/02/18 16:00 97.8 90 34 138/89 (105) 100 03/02/18 16:00 90 03/02/18 15:00 91 33 158/113 (128) 100 03/02/18 15:00 91 03/02/18 14:00 81 03/02/18 14:00 81 33 151/107 (122) 100 Labs: Laboratory Tests Test 03/03/18 04:50 03/03/18 13:10 White Blood Count 4.1 TH/MM3 (4.0-11.0) Red Blood Count 4.17 MIL/MM3 (4.00-5.30) Hemoglobin 10.9 GM/DL (11.6-15.3) Hematocrit 31.5 % (35.0-46.0) Mean Corpuscular Volume 75.5 FL (80.0-100.0) Mean Corpuscular Hemoglobin 26.2 PG (27.0-34.0) Mean Corpuscular Hemoglobin Concent 34.6 % (32.0-36.0) Red Cell Distribution Width 18.1 % (11.6-17.2) Platelet Count 278 TH/MM3 (150-450) Mean Platelet Volume 7.7 FL (7.0-11.0) Neutrophils (%) (Auto) 50.9 % (16.0-70.0) Lymphocytes (%) (Auto) 36.1 % (9.0-44.0) Monocytes (%) (Auto) 10.8 % (0.0-8.0) Eosinophils (%) (Auto) 1.5 % (0.0-4.0) Basophils (%) (Auto) 0.7 % (0.0-2.0) Neutrophils # (Auto) 2.1 TH/MM3 (1.8-7.7) Lymphocytes # (Auto) 1.5 TH/MM3 (1.0-4.8) Monocytes # (Auto) 0.4 TH/MM3 (0-0.9) Eosinophils # (Auto) 0.1 TH/MM3 (0-0.4) Basophils # (Auto) 0.0 TH/MM3 (0-0.2) CBC Comment DIFF FINAL Differential Comment Sodium Level 127 MEQ/L (136-145) Blood Urea Nitrogen 2 MG/DL (7-18) Creatinine 0.24 MG/DL (0.50-1.00) Random Glucose 86 MG/DL (74-106) Total Protein 6.0 GM/DL (6.4-8.2) Albumin 2.4 GM/DL (3.4-5.0) Calcium Level 8.0 MG/DL (8.5-10.1) Phosphorus Level 1.9 MG/DL (2.5-4.9) Magnesium Level 1.6 MG/DL (1.5-2.5) Alkaline Phosphatase 88 U/L (45-117) Aspartate Amino Transf (AST/SGOT) 41 U/L (15-37) Alanine Aminotransferase (ALT/SGPT) 27 U/L (10-53) Total Bilirubin 0.5 MG/DL (0.2-1.0) Potassium Level 3.1 MEQ/L (3.5-5.1) Chloride Level 92 MEQ/L (98-107) Carbon Dioxide Level 24.1 MEQ/L (21.0-32.0) Anion Gap 10 MEQ/L (5-15) Estimat Glomerular Filtration Rate 313 ML/MIN (>89) Result Diagram: 03/03/18 0450 03/03/18 0450 David Mays MD Mar 03, 2018 13:45
[2018-03-03] MEDS: MAGNESIUM SULFATE INJ 2 GM in SODIUM CHLORIDE 0.9% INJ 96 ML IV PRN (14:47)
--- NOTE | 2018-03-03 14:58 | HHI.IDPN ---
Subjective Subjective Remarks is a 42 y/o CF with PMHx significant for recurrent cellulitis, Hepatitis C treatment naive, IV drug abuse, reported history of Crohn's disease , COPD. Patient has had multiple hospitalizations most recently in Oct 2017 and 2017 for recurrent bilateral LE cellulitis. 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 Cryoglobulins were detected in low amounts and AMIE was positive. Patient received IV antibiotics and wound care and was discharged to follow up with in wound care clinic. Patient was discharged to infusion clinic to receive dose of Dalbavancin on 01/07 at that time her wounds her superficial fewer and not as many with less evidence of infection. To complicate matters patient does not have a home and her last year. She has been treated with steroids for her vasculitis related non infected ulcers in the past. The rest of the history was obtained by review of medical records. With this background patient was brought in by ambulance from a temporary senior care/living facility where she is staying for evaluation of bilateral leg pain and altered mental status. One of the other residents became concerned about the patient today because of the way she was acting. They noticed several sores on her bilateral lower extremities. The patient admitted to others that she abused drugs a day prior to admission. Due to worsening mentation patient was intubated for airway protection. ICU course: Patient has high grade fevers and foot appeared to be worsening due to concern for Necrotizing fascitis a Surgery consult was placed. Podiatry evaluated patient and a stat Vascular consult to has been placed. Gen Surgery evaluated patient with me. The general opinion seems to be non salvageable left leg but await Vascular opinion. Currently not on pressors. Remains sedated. UO good. Skin lesions noted on bilateral hands on dorsal aspect with blisters. Also tip of nose appears necrotic with surrounding erythema. ID consulted for evaluation of sepsis, Mment of LLE wet septic gangrene, Right foot heel gangrene and bilateral LE cellulitis. Notes reviewed O'Night events reviewed with RN. 02/27 had further revision of Left BKA and Right foot heel I&D in OR. No fevers No rash Extubated 02/27. Antibiotics Ancef IV Levaquin Lines Line sites with no e.o infection Past Medical History Past Medical History Crohn's disease per history Hepatitis C treatment melissa Recurrent cellulitis Past Surgical History Appendectomy Hysterectomy ? Some bowel surgery for Crohn's Allergies: Coded Allergies: codeine (Verified Allergy, Severe, 02/20/18) ketorolac (Verified Allergy, Severe, 02/20/18) penicillin G (Verified Allergy, Intermediate, Rash, 02/20/18) Objective . Vital Signs Date Time Temp Pulse Resp B/P (MAP) Pulse Ox O2 Delivery O2 Flow Rate FiO2 03/03/18 11:00 84 03/03/18 11:00 84 24 157/111 (126) 100 03/03/18 10:00 87 03/03/18 10:00 87 33 151/110 (124) 100 03/03/18 09:00 88 32 147/107 (120) 100 03/03/18 09:00 80 03/03/18 08:10 21 03/03/18 08:00 94.6 82 24 148/113 (125) 03/03/18 08:00 82 03/03/18 07:00 84 03/03/18 07:00 84 23 144/100 (115) 03/03/18 06:27 19 03/03/18 06:00 87 03/03/18 04:00 85 03/03/18 04:00 98.2 85 25 160/111 (127) 100 03/03/18 02:00 88 03/03/18 00:00 98.0 86 26 137/98 (111) 98 03/03/18 00:00 86 03/02/18 22:00 90 03/02/18 20:00 95 03/02/18 20:00 97.5 95 28 150/98 (115) 100 03/02/18 19:00 105 03/02/18 18:00 96 03/02/18 17:00 96 03/02/18 17:00 96 33 152/109 (123) 100 03/02/18 16:41 100 03/02/18 16:00 97.8 90 34 138/89 (105) 100 03/02/18 16:00 90 03/02/18 15:00 91 33 158/113 (128) 100 03/02/18 15:00 91 . Laboratory Tests Test 03/02/18 06:10 03/03/18 04:50 White Blood Count 5.8 TH/MM3 4.1 TH/MM3 Red Blood Count 4.47 MIL/MM3 4.17 MIL/MM3 Hemoglobin 11.7 GM/DL 10.9 GM/DL Hematocrit 33.9 % 31.5 % Mean Corpuscular Volume 75.8 FL 75.5 FL Mean Corpuscular Hemoglobin 26.1 PG 26.2 PG Mean Corpuscular Hemoglobin Concent 34.5 % 34.6 % Red Cell Distribution Width 17.7 % 18.1 % Platelet Count 296 TH/MM3 278 TH/MM3 Mean Platelet Volume 7.9 FL 7.7 FL Neutrophils (%) (Auto) 51.6 % 50.9 % Lymphocytes (%) (Auto) 34.5 % 36.1 % Monocytes (%) (Auto) 12.0 % 10.8 % Eosinophils (%) (Auto) 1.4 % 1.5 % Basophils (%) (Auto) 0.5 % 0.7 % Neutrophils # (Auto) 3.0 TH/MM3 2.1 TH/MM3 Lymphocytes # (Auto) 2.0 TH/MM3 1.5 TH/MM3 Monocytes # (Auto) 0.7 TH/MM3 0.4 TH/MM3 Eosinophils # (Auto) 0.1 TH/MM3 0.1 TH/MM3 Basophils # (Auto) 0.0 TH/MM3 0.0 TH/MM3 CBC Comment DIFF FINAL DIFF FINAL Differential Comment Laboratory Tests Test 03/01/18 18:40 03/02/18 03:47 03/02/18 06:10 03/02/18 12:32 Sodium Level 121 MEQ/L 121 MEQ/L 121 MEQ/L 122 MEQ/L Blood Urea Nitrogen 5 MG/DL Creatinine 0.24 MG/DL Random Glucose 76 MG/DL Total Protein 6.2 GM/DL Albumin 2.2 GM/DL Calcium Level 7.6 MG/DL Alkaline Phosphatase 90 U/L Aspartate Amino Transf (AST/SGOT) 55 U/L Alanine Aminotransferase (ALT/SGPT) 31 U/L Total Bilirubin 0.5 MG/DL Potassium Level 2.9 MEQ/L Chloride Level 88 MEQ/L Carbon Dioxide Level 20.7 MEQ/L Anion Gap 12 MEQ/L Estimat Glomerular Filtration Rate 313 ML/MIN Phosphorus Level 1.4 MG/DL Magnesium Level 1.5 MG/DL Test 03/02/18 17:20 03/02/18 20:50 03/03/18 01:00 03/03/18 04:50 Sodium Level 122 MEQ/L 123 MEQ/L 125 MEQ/L 127 MEQ/L Potassium Level 3.7 MEQ/L 3.1 MEQ/L Blood Urea Nitrogen 2 MG/DL Creatinine 0.24 MG/DL Random Glucose 86 MG/DL Total Protein 6.0 GM/DL Albumin 2.4 GM/DL Calcium Level 8.0 MG/DL Phosphorus Level 1.9 MG/DL Magnesium Level 1.6 MG/DL Alkaline Phosphatase 88 U/L Aspartate Amino Transf (AST/SGOT) 41 U/L Alanine Aminotransferase (ALT/SGPT) 27 U/L Total Bilirubin 0.5 MG/DL Chloride Level 92 MEQ/L Carbon Dioxide Level 24.1 MEQ/L Anion Gap 10 MEQ/L Estimat Glomerular Filtration Rate 313 ML/MIN Test 03/03/18 13:10 Sodium Level 128 MEQ/L Imaging Last Impressions Chest X-Ray 02/23/18 0600 Signed Impressions: Service Date/Time: Friday, February 23, 2018 02:40 - CONCLUSION: Satisfactory chest appearance Francisco Shabazz MD Abdomen X-Ray 02/22/18 0000 Signed Impressions: Service Date/Time: Thursday, February 22, 2018 17:47 - CONCLUSION: 1. NG tip in stomach. Kevin Wells MD Lower Extremity CT 02/21/18 0000 Signed Impressions: Service Date/Time: Wednesday, February 21, 2018 17:58 - CONCLUSION: 1. Subcutaneous edema in the right lower extremity as above. No discrete abscess. No air locules to suggest gas gangrene. Kevin Wells MD Tibia/Fibula X-Ray 02/20/18 0000 Signed Impressions: Service Date/Time: Tuesday, February 20, 2018 11:01 - CONCLUSION: Soft tissue swelling and irregularity with no radiopaque foreign body. Balaji Zimmerman MD Head CT 02/20/18 0000 Signed Impressions: Service Date/Time: Tuesday, February 20, 2018 11:49 - CONCLUSION: Suboptimal exam secondary to streak and motion artifact with no evidence of hemorrhage or mass effect. Balaji Zimmerman MD Foot X-Ray 02/20/18 0000 Signed Impressions: Service Date/Time: Tuesday, February 20, 2018 11:00 - CONCLUSION: Soft tissue swelling with no radiopaque foreign body or underlying bony abnormality. Balaji Zimmerman MD Physical Exam GENERAL: Thin female, looks older tho stated age, NAD SKIN: Cool and dry. Multiple wounds both hands, tip of nose and R foot HEAD: Atraumatic. Normocephalic. No temporal or scalp tenderness. EYES: Pupils equal round and reactive. No scleral icterus. No injection or drainage. ENT: No nasal discharge, has lesion tip of nose NECK: Trachea midline. Supple, nontender, no meningeal signs. CARDIOVASCULAR: Regular rate and rhythm without murmurs, gallops, or rubs. RESPIRATORY: Clear to auscultation. Breath sounds equal bilaterally. No wheezes , rales, or rhonchi. GASTROINTESTINAL: Abdomen soft, non-tender, nondistended. MUSCULOSKELETAL: Dry dressing LBKA stump. Wounds dry R foot. UE hand dorsum with areas of blackening and erythema and blisters noted. Tip of nose with area of blackening noted. NEUROLOGICAL: Sleeping after Ativan administration Psych unable to assess IV line sites with no e.o infection. Assessment & Plan Remarks Sepsis present on admission, better MSSA foot infection Left leg and foot with cellulitis, abscess and gangrene. s/p BKA. Right foot heel with cellulitis and gangrene Bilateral Hand cellulitis with blisters/wounds. Kleb pneumo UTI. Bilateral LE cellulitis with blisters. Clinically looks less likely to be Necrotizing fascitis and no gas on imaging. Does not appear to be spreading beyond margins demarcated with marker. Hepatitis C Cryoglobulinemia Vasculitis : AMIE positive. IVDA Acute resp failure on vent. Penicillin allergy: rash. has tolerated Cephalosporins in past. Recs: Continue Ancef IV Continue Levaquin oral. Follow cultures to adjust antibiotics. follow clinically if areas on face and hands worsen consider hand surgery consult and plastics for nose. Monitor progress D/W RN Will dw podiatry about Right foot heel to determine length of antibiotics. Zora Pompa MD Mar 03, 2018 14:58
--- NOTE | 2018-03-03 18:12 | HHI.NPPN ---
Subjective History of Present Illness 42 year old with IVDA , cellulitis low Na Review of Systems General Constitutional: Fatigue Objective Data Data 03/03/18 03/04/18 19:00 07:00 Intake Total 585 ml Balance 585 ml IV Total 585 ml Vital Signs Date Time Temp Pulse Resp B/P (MAP) Pulse Ox O2 Delivery O2 Flow Rate FiO2 03/03/18 15:00 102 03/03/18 15:00 102 32 131/94 (106) 100 03/03/18 14:00 93 25 127/97 (107) 100 03/03/18 14:00 93 03/03/18 13:00 84 26 141/98 (112) 03/03/18 13:00 84 03/03/18 12:00 94.0 83 27 145/101 (116) 100 03/03/18 12:00 83 03/03/18 11:00 84 03/03/18 11:00 84 24 157/111 (126) 100 03/03/18 10:00 87 03/03/18 10:00 87 33 151/110 (124) 100 03/03/18 09:00 88 32 147/107 (120) 100 03/03/18 09:00 80 03/03/18 08:10 21 03/03/18 08:00 94.6 82 24 148/113 (125) 03/03/18 08:00 82 03/03/18 07:00 84 03/03/18 07:00 84 23 144/100 (115) 03/03/18 06:27 19 03/03/18 06:00 87 03/03/18 04:00 85 03/03/18 04:00 98.2 85 25 160/111 (127) 100 03/03/18 02:00 88 03/03/18 00:00 98.0 86 26 137/98 (111) 98 03/03/18 00:00 86 03/02/18 22:00 90 03/02/18 20:00 95 03/02/18 20:00 97.5 95 28 150/98 (115) 100 03/02/18 19:00 105 -: 03/03/18 0450 03/03/18 1310 Physical Exam General Appearance: Malnourished Neck Neck Exam: Neck Supple Pulmonary Resp Exam: Decreased Bases Cardiology CV Exam: Regular Gastrointestinal/Abdomen GI Exam: Soft, Non-Tender, Bowel Sounds Present Extremeties Extremities Exam: No Edema (L BKA) Assessment/Plan Problem List: (1) Hyponatremia ICD Codes: E87.1 - Hypo-osmolality and hyponatremia Plan: 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, she has a low EF however no signs of congestive heart failure noted, Na improved inc salt tab 1 gm tid KPO4 given use Samsca (2) Polysubstance abuse ICD Codes: F19.10 - Other psychoactive substance abuse, uncomplicated Status: Acute Plan: Patient was counseled against (3) Bilateral leg ulcer ICD Codes: L97.919 - Non-pressure chronic ulcer of unspecified part of right lower leg with unspecified severity; L97.929 - Non-pressure chronic ulcer of unspecified part of left lower leg with unspecified severity Status: Acute Plan: Left BKA (4) Hypokalemia ICD Codes: E87.6 - Hypokalemia Plan: Continue to replace Problem Qualifiers (1) Bilateral leg ulcer: Qualified Codes: L97.919 - Non-pressure chronic ulcer of unspecified part of right lower leg with unspecified severity; L97.929 - Non-pressure chronic ulcer of unspecified part of left lower leg with unspecified severity Lebron Hill MD Mar 03, 2018 18:12
--- NOTE | 2018-03-03 19:59 | HHI.PR ---
Review/Management Diagnosis sz---probably related to drug abuse venous sinus asymmetry---r/o venous sinus thrombosis Plan MRV brain Diagnosis/Plan: Subjective Subjective Comments No acute events reported Active Medications Current Medications Medications (Trade) Dose Ordered Sig/Malgorzata Route Start Time Stop Time Status Last Admin (NS Flush) 2 ml UNSCH PRN IV FLUSH 02/20/18 15:00 (NS Flush) 2 ml BID IV FLUSH 02/20/18 21:00 03/03/18 09:11 (Tylenol) 650 mg Q6H PRN PO 02/20/18 15:00 (Ativan Inj) 2 mg Q4H PRN IV PUSH 02/20/18 15:00 03/03/18 17:56 (Zofran Inj) 4 mg Q6H PRN IV PUSH 02/20/18 15:00 02/27/18 20:06 (Duoneb Neb) 1 ampule Q4HR NEB PRN INH 02/20/18 15:00 02/27/18 03:21 (Heparin Inj) 5,000 units Q12H SQ 02/20/18 16:00 03/03/18 17:56 Miscellaneous Information 1 Q361D XX 02/20/18 15:00 (Chlorhexidine 2% Cloth) Taper DAILY@04 TOP 02/21/18 04:00 02/17/19 03:59 03/03/18 04:00 (Chlorhexidine 2% Cloth) 3 pack UNSCH PRN TOP 02/20/18 15:00 (Damari-Colace) 1 tab BID PO 02/21/18 09:00 02/28/18 21:27 (Milk Of Magnesia Liq) 30 ml Q12H PRN PO 02/20/18 15:00 (Senokot) 17.2 mg Q12H PRN PO 02/20/18 15:00 (Dulcolax Supp) 10 mg DAILY PRN RECTAL 02/20/18 15:00 (Lactulose Liq) 30 ml DAILY PRN PO 02/20/18 15:00 02/25/18 20:14 Potassium Chloride 100 ml @ 50 mls/hr Q2H PRN IV 02/20/18 15:00 Potassium Chloride 100 ml @ 50 mls/hr Q2H PRN IV 02/20/18 15:00 03/02/18 12:11 (K-Lyte Cl Eff) 50 meq UNSCH PRN PO 02/20/18 15:00 Potassium Chloride 100 ml @ 25 mls/hr UNSCH PRN IV 02/20/18 15:00 Potassium Chloride 100 ml @ 50 mls/hr Q2H PRN IV 02/20/18 15:00 03/01/18 03:39 Magnesium Sulfate 4 gm/Sodium Chloride 100 ml @ 50 mls/hr UNSCH PRN IV 02/20/18 15:00 (Mag-Ox) 800 mg UNSCH PRN PO 02/20/18 15:00 Magnesium Sulfate 2 gm/Sodium Chloride 100 ml @ 50 mls/hr UNSCH PRN IV 02/20/18 15:00 03/03/18 14:47 (K-Phos) 2,000 mg Q4H PRN PO 02/20/18 15:00 Sodium Phosphate 30 mmol/Sodium Chloride 250 ml @ 42 mls/hr UNSCH PRN IV 02/20/18 15:00 (K-Phos) 2,000 mg UNSCH PRN PO/TUBE 02/20/18 15:00 Potassium Phosphate 30 mmol/ Sodium Chloride 260 ml @ 42 mls/hr UNSCH PRN IV 02/20/18 15:00 (Lopressor Inj) 5 mg Q6H PRN IV PUSH 02/20/18 16:45 03/02/18 04:12 (Trandate Inj) 10 mg Q4H PRN IV PUSH 02/20/18 16:45 03/02/18 06:21 (Peridex 0.12% Liq) 15 ml BID@08,20 MT 02/20/18 20:00 03/03/18 08:00 Acetaminophen 100 ml @ 400 mls/hr Q6H PRN IV 02/21/18 13:00 (Pepcid Liq) 20 mg BID NG 02/22/18 21:00 03/03/18 09:14 (Tears Naturale Opth Soln) 1 drop Q4H PRN EACH EYE 02/22/18 13:00 02/23/18 07:47 Cefazolin Sodium 2000 mg/Sodium Chloride 120 ml @ 240 mls/hr Q8H IV 02/23/18 20:00 03/03/18 11:29 ([place] 10-325 Mg) 1 tab Q6H PRN PO 02/25/18 18:00 03/03/18 17:56 (Levaquin) 500 mg DAILY@1100 PO 02/28/18 11:00 03/03/18 11:29 (Prinivil) 5 mg DAILY PO 02/28/18 09:00 03/03/18 09:11 (D50w (Vial) Inj) 50 ml UNSCH PRN IV PUSH 02/28/18 08:45 (Glucagon Inj) 1 mg UNSCH PRN OTHER 02/28/18 08:45 (NovoLIN R SUPPLEMENTAL SCALE) 1 Q6H SQ 02/28/18 10:00 Levetriacetam 500 mg/Sodium Chloride 105 ml @ 420 mls/hr Q12H IV 02/28/18 12:00 03/03/18 14:09 (Coreg) 3.125 mg Q12HR PO 03/01/18 09:00 03/03/18 09:11 (Santyl Oint) 1 applic DAILY TOPICAL 03/02/18 17:30 03/03/18 09:11 Potassium Phosphate 30 mmol/ Sodium Chloride 260 ml @ 42 mls/hr UNSCH PRN IV 03/03/18 08:00 03/03/18 10:39 Magnesium Sulfate 2 gm/Sodium Chloride 100 ml @ 50 mls/hr UNSCH PRN IV 03/03/18 08:00 (Sodium Chloride) 1 gm TID PO 03/04/18 09:00 (Samsca) 15 mg ONCE ONCE PO 03/03/18 20:00 03/03/18 20:01 Allergies Allergies Coded Allergies codeine (Verified Allergy, Severe, 02/20/18) ketorolac (Verified Allergy, Severe, 02/20/18) penicillin G (Verified Allergy, Intermediate, Rash, 02/20/18) Exam I&O / VS 03/03/18 03/03/18 03/04/18 15:00 23:00 07:00 Intake Total 225 ml 760 ml Output Total 1202 ml Balance 225 ml -442 ml Intake Oral 400 ml IV Total 225 ml 360 ml Output Urine Total 1200 ml Stool Total 2 ml Vital Signs Date Time Temp Pulse Resp B/P (MAP) Pulse Ox O2 Delivery O2 Flow Rate FiO2 03/03/18 19:00 91 26 120/88 (99) 100 03/03/18 19:00 91 03/03/18 18:00 96 30 140/90 (107) 98 03/03/18 18:00 96 03/03/18 17:00 90 24 115/82 (93) 100 03/03/18 17:00 90 03/03/18 16:00 97.6 97 31 127/93 (104) 100 03/03/18 16:00 97 03/03/18 15:00 102 03/03/18 15:00 102 32 131/94 (106) 100 03/03/18 14:00 93 25 127/97 (107) 100 03/03/18 14:00 93 03/03/18 13:00 84 26 141/98 (112) 03/03/18 13:00 84 03/03/18 12:00 94.0 83 27 145/101 (116) 100 03/03/18 12:00 83 03/03/18 11:00 84 03/03/18 11:00 84 24 157/111 (126) 100 03/03/18 10:00 87 03/03/18 10:00 87 33 151/110 (124) 100 03/03/18 09:00 88 32 147/107 (120) 100 03/03/18 09:00 80 03/03/18 08:10 21 03/03/18 08:00 94.6 82 24 148/113 (125) 03/03/18 08:00 82 03/03/18 07:00 84 03/03/18 07:00 84 23 144/100 (115) 03/03/18 06:27 19 03/03/18 06:00 87 03/03/18 04:00 85 03/03/18 04:00 98.2 85 25 160/111 (127) 100 03/03/18 02:00 88 03/03/18 00:00 98.0 86 26 137/98 (111) 98 03/03/18 00:00 86 03/02/18 22:00 90 03/02/18 20:00 95 03/02/18 20:00 97.5 95 28 150/98 (115) 100 Exam Comments lethargic. CN intact MOTOR--no focal weakness Objective Radiology Results MRV brain--normal with no sign of venous sinus thrombosis Micro and Labs Laboratory Tests Test 03/02/18 20:50 03/03/18 01:00 03/03/18 04:50 03/03/18 13:10 Sodium Level 123 125 127 128 White Blood Count 4.1 Red Blood Count 4.17 Hemoglobin 10.9 Hematocrit 31.5 Mean Corpuscular Volume 75.5 Mean Corpuscular Hemoglobin 26.2 Mean Corpuscular Hemoglobin Concent 34.6 Red Cell Distribution Width 18.1 Platelet Count 278 Mean Platelet Volume 7.7 Neutrophils (%) (Auto) 50.9 Lymphocytes (%) (Auto) 36.1 Monocytes (%) (Auto) 10.8 Eosinophils (%) (Auto) 1.5 Basophils (%) (Auto) 0.7 Neutrophils # (Auto) 2.1 Lymphocytes # (Auto) 1.5 Monocytes # (Auto) 0.4 Eosinophils # (Auto) 0.1 Basophils # (Auto) 0.0 CBC Comment DIFF FINAL Differential Comment Blood Urea Nitrogen 2 Creatinine 0.24 Random Glucose 86 Total Protein 6.0 Albumin 2.4 Calcium Level 8.0 Phosphorus Level 1.9 Magnesium Level 1.6 Alkaline Phosphatase 88 Aspartate Amino Transf (AST/SGOT) 41 Alanine Aminotransferase (ALT/SGPT) 27 Total Bilirubin 0.5 Potassium Level 3.1 Chloride Level 92 Carbon Dioxide Level 24.1 Anion Gap 10 Estimat Glomerular Filtration Rate 313 Test 03/03/18 18:30 Sodium Level 129 Potassium Level 3.4 Date/Time Source Procedure Growth Status 02/21/18 13:21 Blood Peripheral Aerobic Blood Culture - Final NO GROWTH IN 5 DAYS Complete 02/21/18 13:21 Blood Peripheral Anaerobic Blood Culture - Final NO GROWTH IN 5 DAYS Complete 02/21/18 13:11 Sputum Endotracheal Gram Stain - Final Complete 02/21/18 13:11 Sputum Culture - Final Klebsiella Pneumoniae Complete 02/26/18 11:15 Wound Foot Fungal Smear - Final NO FUNGAL ELEMENTS SEEN. Resulted 02/26/18 11:15 Wound Foot Fungal Culture Pending Resulted Vaibhav Evans MD PhD Mar 03, 2018 19:59
[2018-03-03] MEDS ORDERED: TOLVAPTAN 15 MG TAB PO ONE (20:00)
[2018-03-03] MEDS: ACETAMINOPHEN 325 MG TAB PO PRN (20:45)
[2018-03-04] VITALS (19 sets, daily range): BP systolic 110–152; BP diastolic 77–108; PULSE 77–106; RESP 0–27; TEMP 97.7–97.9; O2SAT 94–100
[2018-03-04] MEDS: LORazepam 2 MG/ML VIAL IV PUSH PRN ×4 (02:15→23:12)
[2018-03-04 03:07] LABS: AUTOMATED NEUTROPHIL # 1.7 TH/MM3 (1.8-7.7); BASOPHIL % 0.9 % (0.0-2.0); EOSINOPHIL # 0.1 TH/MM3 (0-0.4); EOSINOPHIL % 1.9 % (0.0-4.0); HEMATOCRIT 29.1 % (35.0-46.0); HEMOGLOBIN 10.3 GM/DL (11.6-15.3); LYMPH % 38.3 % (9.0-44.0); LYMPHOCYTE # 1.3 TH/MM3 (1.0-4.8); MEAN CELL VOLUME 76.5 FL (80.0-100.0); MEAN CORPUSCULAR HEMOGLOBIN 27.1 PG (27.0-34.0); MEAN CORPUSCULAR HGB CONC 35.4 % (32.0-36.0); MEAN PLATELET VOLUME 8.2 FL (7.0-11.0); MONO % 9.7 % (0.0-8.0); MONOCYTE # 0.3 TH/MM3 (0-0.9); NEUT % 49.2 % (16.0-70.0); PLATELET COUNT 256 TH/MM3 (150-450); RED CELL DISTRIBUTION WIDTH 18.4 % (11.6-17.2); WHITE BLOOD COUNT 3.4 TH/MM3 (4.0-11.0)
[2018-03-04 03:14] LABS: BICARBONATE 24.7 MEQ/L (21.0-32.0); CREATININE 0.39 MG/DL (0.50-1.00); MAGNESIUM 2.1 MG/DL (1.5-2.5); PHOSPHORUS 3.2 MG/DL (2.5-4.9)
[2018-03-04] MEDS: INSULIN NovoLIN REGULAR SUPPLEMENTAL SCALE SQ SCH ×4 (04:00→21:55)
[2018-03-04] MEDS: CHLORHEXIDINE GLUCONATE 2 % 1 PACK (2 CLOTHS) TOP SCH ×2 (04:00→23:27)
[2018-03-04] MEDS: CEFAZOLIN INJ 2,000 MG in SODIUM CHLORIDE 0.9% INJ 100 ML IV SCH ×3 (04:40→20:03)
[2018-03-04] MEDS: ACETAMINOPHEN 325 MG TAB PO PRN (04:42)
[2018-03-04] MEDS: HEPARIN SODIUM - SQ 10,000 UNITS/ML VIAL SQ SCH ×2 (04:43→15:35)
[2018-03-04] MEDS: CHLORHEXIDINE 0.12% (ORAL KIT) 15 ML CUP MT SCH ×2 (08:00→20:00)
--- NOTE | 2018-03-04 08:04 | HHI.CCPN ---
Subjective Remarks/Hospital Course 02/20: 42-year-old female with history of polysubstance abuse, IVDU, brought in by ambulance from a temporary intermediate/living facility where she is staying for evaluation of bilateral leg pain and altered mental status. One of the other residents became concerned about the patient today because of the way she was acting. They noticed several sores on her bilateral lower extremities. The patient admits to IV drug abuse, last use was yesterday. She complains of pain in her bilateral legs, however is otherwise a very poor historian writhing in bed moaning in pain. Chart review shows that the patient has been admitted for this in the past. 02/21: Sedated, easily arousable, orally intubated on mechanical ventilation. Spiked a temperature 101.5 for which Syed cultures ordered and we are initiating empiric vancomycin and Levaquin. 2-D echo ordered to evaluate heart valves. She had a normal white count this morning. Wounds or bilateral lower extremities unchanged since admission and appeared to be chronic. 02/22: T-max 99.4. Patient underwent TTE this a.m., results pending. Consultation and evaluation performed by podiatry this a.m., vascular surgery urgently consulted. Plan scheduling for left BKA today. Multiple punctate lesions, possible emboli type wounds bilateral upper and lower extremities, as well as left nare. Patient remains sedated and intubated on fentanyl and Versed infusions currently. 02/23: CPAP trials initiated today, patient tolerated for approximately 30 minutes. Tube feeds initiated Jevity 1.5. Wound VAC to left BKA with minimal drainage. Patient to receive 2 units PRBCs per vascular surgery. 02/24: Afebrile. She remains sedated and intubated. left BKA wound VAC intact. Discussion with for return to OR tomorrow for wound closure. Plan with Dr. Philipp Ramos possible debridement of right heel also schedule tentatively for tomorrow. Patient tolerating tube feeds. CPAP trials tolerated today. Patient continues on normal saline infusion with KCl@ 100cc/ hr. Plan for NPO status tonight sodium level 134. Salt Tabs added to medication regimen. 02/25: Afebrile. No acute events overnight the patient remains sedated. Plan for scheduled revision and wound closure of left BKA with Dr. Cabrera as well as debridement of right heel with Dr. Ramos. Patient continues on intermittent CPAP trials. Tolerating tube feeding. 02/26: Patient underwent revision and wound closure of left BKA, as well as debridement right heel. Posttransfusion CBC is stable. Plan initiation of CPAP trials this afternoon, plan to transition to Precedex for SBT trial in a.m. for possible extubation secondary to high opioid requirements secondary to history of polysubstance abuse.PO narcotics added to medication regimen. IV fluids discontinued. 02/27: Currently tolerating CPAP 08/26, reduce pressure support of 5 if tolerated for 45 minutes get weaning parameters with possible extubation. Otherwise minimize sedation. Status post second stage left below-knee amputation. May need right-sided amputation also per Dr. Holder's note 02/28 Patient s/p extubation yesterday on room air oxygen when seen, afebrile. On no drips 03/01 Patient had ? seizure yesterday for MRI brain today per neuro. CT brain yesterday showed no acute findings, EEG showed mild encephalopathy no epileptic activity 03/02 Patient is lethargic given Ativan 4mg total during night for agitation. For MRV brain per neuro. 03/03 Patient is more awake and alert this morning. On 3% saline with Na level 126 from 122 yesterday. MRV yesterday showed no cerebral venous thrombosis . 03/04 No events overnight. Off 3%saline. Awake and alert. Objective Vital Signs Date Time Temp Pulse Resp B/P (MAP) Pulse Ox O2 Delivery O2 Flow Rate FiO2 03/04/18 06:00 84 03/04/18 05:42 16 03/04/18 04:00 97.8 110/83 (92) 100 03/03/18 19:06 21 03/01/18 09:57 Nasal Cannula 2.00 Intake and Output 03/04/18 03/04/18 03/05/18 08:00 16:00 00:00 Intake Total 225 ml Output Total 900 ml Balance -675 ml Result Diagram: 03/04/18 0200 03/04/18 0200 Other Results Laboratory Tests Test 03/03/18 13:10 03/03/18 18:30 03/04/18 02:00 Sodium Level 128 MEQ/L 129 MEQ/L 130 MEQ/L Potassium Level 3.4 MEQ/L 3.3 MEQ/L Phosphorus Level 3.2 MG/DL 3.2 MG/DL White Blood Count 3.4 TH/MM3 Red Blood Count 3.80 MIL/MM3 Hemoglobin 10.3 GM/DL Hematocrit 29.1 % Mean Corpuscular Volume 76.5 FL Mean Corpuscular Hemoglobin 27.1 PG Mean Corpuscular Hemoglobin Concent 35.4 % Red Cell Distribution Width 18.4 % Platelet Count 256 TH/MM3 Mean Platelet Volume 8.2 FL Neutrophils (%) (Auto) 49.2 % Lymphocytes (%) (Auto) 38.3 % Monocytes (%) (Auto) 9.7 % Eosinophils (%) (Auto) 1.9 % Basophils (%) (Auto) 0.9 % Neutrophils # (Auto) 1.7 TH/MM3 Lymphocytes # (Auto) 1.3 TH/MM3 Monocytes # (Auto) 0.3 TH/MM3 Eosinophils # (Auto) 0.1 TH/MM3 Basophils # (Auto) 0.0 TH/MM3 CBC Comment DIFF FINAL Differential Comment Blood Urea Nitrogen 4 MG/DL Creatinine 0.39 MG/DL Random Glucose 88 MG/DL Calcium Level 8.0 MG/DL Magnesium Level 2.1 MG/DL Chloride Level 97 MEQ/L Carbon Dioxide Level 24.7 MEQ/L Anion Gap 8 MEQ/L Estimat Glomerular Filtration Rate 179 ML/MIN Imaging Last Impressions Head/Brain Mag Res Venography 03/02/18 0000 Signed Impressions: Service Date/Time: Friday, March 02, 2018 08:36 - CONCLUSION: No evidence for cerebral venous thrombosis. Ata Friedman MD FACR Chest X-Ray 03/01/18 0000 Signed Impressions: Service Date/Time: Thursday, March 01, 2018 11:16 - CONCLUSION: No acute disease. Francisco Figueroa MD Brain MRI 03/01/18 0000 Signed Impressions: Service Date/Time: Thursday, March 01, 2018 15:27 - CONCLUSION: 1. 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 MRV examination may be performed if there is significant persistent clinical concern regarding dural venous sinus thrombosis. 2. Otherwise, unremarkable MRI examination of the brain. Lenny Dee MD Liver Ultrasound 02/28/18 0000 Signed Impressions: Service Date/Time: Wednesday, February 28, 2018 09:14 - CONCLUSION: 1. Gallbladder sludge 2. Medical renal disease Floyd Villatoro MD Head CT 02/28/18 0000 Signed Impressions: Service Date/Time: Wednesday, February 28, 2018 12:31 - CONCLUSION: 1. No intracranial abnormalities seen. 2. Air within the soft tissues adjacent to the posterior and lateral aspects of the right maxillary sinus. Francisco Figueroa MD Abdomen X-Ray 02/22/18 0000 Signed Impressions: Service Date/Time: Thursday, February 22, 2018 17:47 - CONCLUSION: 1. NG tip in stomach. Kevin Wells MD Lower Extremity CT 02/21/18 0000 Signed Impressions: Service Date/Time: Wednesday, February 21, 2018 17:58 - CONCLUSION: 1. Subcutaneous edema in the right lower extremity as above. No discrete abscess. No air locules to suggest gas gangrene. Kevin Wells MD Tibia/Fibula X-Ray 02/20/18 0000 Signed Impressions: Service Date/Time: Tuesday, February 20, 2018 11:01 - CONCLUSION: Soft tissue swelling and irregularity with no radiopaque foreign body. Balaji Zimmerman MD Foot X-Ray 02/20/18 0000 Signed Impressions: Service Date/Time: Tuesday, February 20, 2018 11:00 - CONCLUSION: Soft tissue swelling with no radiopaque foreign body or underlying bony abnormality. Balaji Zimmerman MD Procedures 02/22 left BKA 02/26 revision and wound closure left BKA and right heel debridement Objective Remarks Physical exam GENERAL: Well-developed, cachectic appearing lying in bed in [facility] SKIN: Several wounds/ulcerations to bilateral lower extremities with surrounding ecchymosis, no purulent drainage, no crepitus, no fluctuance or induration. s/p L BKA HEAD: Atraumatic. Normocephalic. EYES: Pupils equal and round, 3 mm, reactive to light. ENT: Mucous membranes pink and dry. NECK: Trachea midline. No JVD. No nuchal rigidity. CARDIOVASCULAR: S1-S2 regular, no gallop or murmur. No murmur appreciated. RESPIRATORY: Orally intubated on mechanical ventilation. Clear to auscultation. Breath sounds equal bilaterally. GASTROINTESTINAL: Abdomen soft, non-tender, nondistended. MUSCULOSKELETAL: Skin exam as above s/p L BKA. Multiple large blistering right lower extremities wounds. Multiple petechiae bilateral hands with blistering NEUROLOGICAL: Awake and alert A/P Assessment and Plan Assessment 42 year old female: Resp Insuff Encephalopathy secondary to substance abuse Hyponatremia Polysubstance abuse positive for amphetamines, cocaine, benzodiazepine, opioids Fever with suspected sepsis Left LLE with cellulitis, abscess and gangrene. s/p BKA. History of IV drug use Sinus Tachycardia Uncontrolled hypertension Hypoalbuminemia Malnutrition Postoperative pain Seizures Plan: Neuro: Monitor neuro status, UDS: Cocaine, Amphetamines, Opiates, Benzos [place] every 4 hours as needed for pain control status post BKA [place] 10-325 q 6hr on Keppra, Neuro is following. 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 Coreg 3.125mg BID, On Lopressor/Labetalol IV PRN 02/22 2-D echo EF 25-30% Pulmonary: Oxygen keep sats >92% Bronchodilators, aspiration precautions CXR 03/01: No acute disease GI/liver: On PO diet per speech Elevated AST, US liver: Gallbladder sludge. Medical renal disease Hepatitis profile reactive Hep C IgG ab Renal/: Monitor renal function, I/O's, electrolytes replacement per protocol. TSH: 1.58. Will need K replacement today Renal is following- Dr. Hill, off 3%saline, on salt tabs 1gram TID serum osm: 250, urine osm: 627 likely SIADH. Na level 130 ID: ID following, on Cefazolin and Levaquin Status post left BKA Wound care consulted for lower extremity leg wounds. Wound culture-staph aureus Sputum culture-Klebsiella C-diff PCR negative on 03/01 Endocrine: SSI for glycemic control if needed. Heme: Follow CBC. Transfuse for hemoglobin less than 8 Msk: Vascular surgery following , S/P left BKA. Prophylaxis:SQ Heparin, SCDs for DVT prophylaxis , on Pepcid for GI prophylaxis Lines: Right sided CVP Level 2 Louie Siddiqui MD Mar 04, 2018 08:03
[2018-03-04] MEDS: CARVEDILOL 3.125 MG TAB PO SCH ×2 (09:00→20:03)
[2018-03-04] MEDS: LISINOPRIL 5 MG TAB PO SCH (09:00)
[2018-03-04] MEDS: SODIUM CHLORIDE 1 GRAM TAB PO SCH ×3 (09:00→17:53)
[2018-03-04] MEDS: DOCUSATE SODIUM 50 MG/SENNA 8.6 MG TAB PO SCH ×2 (09:00→20:03)
[2018-03-04] MEDS: SODIUM CHLORIDE 0.9% FLUSH 10 ML FLUSH IV FLUSH SCH ×2 (11:44→20:03)
[2018-03-04] MEDS: COLLAGENASE OINT 30 GM TUBE TOPICAL SCH (11:46)
[2018-03-04] MEDS: FAMOTIDINE 40 MG/5 ML LIQ 50 ML BTL NG SCH ×2 (11:46→20:03)
[2018-03-04] MEDS: LEVOFLOXACIN 500 MG TAB PO SCH (11:47)
[2018-03-04] MEDS: levETIRAcetam INJ 500 MG in SODIUM CHLORIDE 0.9% INJ 100 ML IV SCH ×2 (11:47→23:38)
--- NOTE | 2018-03-04 12:12 | PD.CAR.PN ---
CVT Progress Note Subjective/Hospital Course: 42-year-old female intubated ventilated and sedated Patient is apparently a IV drug abuser was brought in hypotensive and septic to our institution is currently under care Podiatry was consulted for evaluation of the feet and spoke with Dr. Ramos about it On exam patient has palpable bilateral femoral pulses and palpable popliteal pulses on the right side posterior tibial is palpable dorsalis pedis is by Doppler patient has multiple ulcers and necrotic areas over the right foot. On the left foot I can Doppler posterior tibial pulse and dorsalis pedis pulse but the entire foot is at this point involved in gangrene which has started from the skin down and that this time the entire foot is essentially black Fluid covered bulla and gangrenous soft tissue is going all the way down to the tendons and gangrene involves entire foot from the metatarsals, over the metatarsals to the tarsals and to the ankle and then over to the heel. Toes are spared. This is a result of multiple injections in this area and gangrenous spread. This patient clearly has inflow vessels which are open but she is perfusing a devitalized foot She needs immediate amputation patient will undergo two-stage amputation in the guillotine fashion with secondary closure in a few days. I fully agree with Dr. 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 At the same time I will debride few of these necrotic areas It should be noted that patient's blood supply to the foot was severely compromised and that vessels below the level of the knee look really diseased fibrotic and the only true viable vessel is anterior tibial 02/24/2018 Patient slightly improved Hemodynamically stable We will take him tomorrow for revision resection and closure of the left BKA stump 02/25/2018 Patient with the guillotine amputation of left leg We will take for closure tomorrow for closure of the BKA stump and debridement Today, due to scheduling conflicts and emergencies surgery had to be postponed. 02/27/2018 Status post second stage left below-knee amputation with closure and advancement of skin flap Dressing clean and dry Discussed case with Dr. Ramos and is more and more likely that patient will require amputation on the right side as well 02/28/2018 Status post BKA closure. Dressing intact clean We will keep dressing on until tomorrow and then remove Patient might need right below-knee amputation in the future, depending on how the debrided areas heal 03/03/2018 Daily dressing change Stump is clean and dry The plastic advancement flap is nicely perfused on the bottom of the stump Unfortunately patient is bending her leg and hitting against the bed so I have instructed him to try to have her move the leg and keep it more straight I would avoid putting a posterior splint on her considering the quality of her skin I discussed this at length with the patient's mother and there is still significant chance the patient will need a right below-knee amputation and if left below-knee develops decubitus ulcer than patient will need an above-knee amputation on the left side Right now everything looks okay continue care will see how it works out 03/04/2018 Stump is clean and dry Patient is not following commands and keeps hitting the stump against the bed which of course is not going to end up well if skin gets damaged. Right foot debridement areas clean but I do not believe patient will be able to heal this due to noncompliance, malnutrition and severe tissue loss. Nothing to add to care at this time we will watch carefully the stump and right leg for any changes Objective: Vital Signs Date Time Temp Pulse Resp B/P (MAP) Pulse Ox O2 Delivery O2 Flow Rate FiO2 03/04/18 06:00 84 03/04/18 05:42 16 03/04/18 04:00 97.8 77 14 110/83 (92) 100 03/04/18 04:00 77 03/04/18 02:00 80 03/04/18 00:54 16 03/04/18 00:00 84 03/04/18 00:00 97.9 84 16 123/89 (100) 100 03/03/18 22:00 107 03/03/18 20:00 104 03/03/18 20:00 97.5 104 18 130/94 (106) 96 03/03/18 19:06 100 21 03/03/18 19:00 91 26 120/88 (99) 100 03/03/18 19:00 91 03/03/18 18:00 96 30 140/90 (107) 98 03/03/18 18:00 96 03/03/18 17:00 90 24 115/82 (93) 100 03/03/18 17:00 90 03/03/18 16:00 97.6 97 31 127/93 (104) 100 03/03/18 16:00 97 03/03/18 15:00 102 03/03/18 15:00 102 32 131/94 (106) 100 03/03/18 14:00 93 25 127/97 (107) 100 03/03/18 14:00 93 03/03/18 13:00 84 26 141/98 (112) 03/03/18 13:00 84 Labs: Laboratory Tests Test 03/04/18 02:00 White Blood Count 3.4 TH/MM3 (4.0-11.0) Red Blood Count 3.80 MIL/MM3 (4.00-5.30) Hemoglobin 10.3 GM/DL (11.6-15.3) Hematocrit 29.1 % (35.0-46.0) Mean Corpuscular Volume 76.5 FL (80.0-100.0) Mean Corpuscular Hemoglobin 27.1 PG (27.0-34.0) Mean Corpuscular Hemoglobin Concent 35.4 % (32.0-36.0) Red Cell Distribution Width 18.4 % (11.6-17.2) Platelet Count 256 TH/MM3 (150-450) Mean Platelet Volume 8.2 FL (7.0-11.0) Neutrophils (%) (Auto) 49.2 % (16.0-70.0) Lymphocytes (%) (Auto) 38.3 % (9.0-44.0) Monocytes (%) (Auto) 9.7 % (0.0-8.0) Eosinophils (%) (Auto) 1.9 % (0.0-4.0) Basophils (%) (Auto) 0.9 % (0.0-2.0) Neutrophils # (Auto) 1.7 TH/MM3 (1.8-7.7) Lymphocytes # (Auto) 1.3 TH/MM3 (1.0-4.8) Monocytes # (Auto) 0.3 TH/MM3 (0-0.9) Eosinophils # (Auto) 0.1 TH/MM3 (0-0.4) Basophils # (Auto) 0.0 TH/MM3 (0-0.2) CBC Comment DIFF FINAL Differential Comment Blood Urea Nitrogen 4 MG/DL (7-18) Creatinine 0.39 MG/DL (0.50-1.00) Random Glucose 88 MG/DL (74-106) Calcium Level 8.0 MG/DL (8.5-10.1) Phosphorus Level 3.2 MG/DL (2.5-4.9) Magnesium Level 2.1 MG/DL (1.5-2.5) Sodium Level 130 MEQ/L (136-145) Potassium Level 3.3 MEQ/L (3.5-5.1) Chloride Level 97 MEQ/L (98-107) Carbon Dioxide Level 24.7 MEQ/L (21.0-32.0) Anion Gap 8 MEQ/L (5-15) Estimat Glomerular Filtration Rate 179 ML/MIN (>89) Result Diagram: 03/04/1819903/04/180 David Mays MD Mar 04, 2018 12:12
--- NOTE | 2018-03-04 12:45 | HHI.NPPN ---
Subjective History of Present Illness 42 year old with IVDA , cellulitis low Na Review of Systems General Constitutional: Fatigue Objective Data Data Vital Signs Date Time Temp Pulse Resp B/P (MAP) Pulse Ox O2 Delivery O2 Flow Rate FiO2 03/04/18 06:00 84 03/04/18 05:42 16 03/04/18 04:00 97.8 77 14 110/83 (92) 100 03/04/18 04:00 77 03/04/18 02:00 80 03/04/18 00:54 16 03/04/18 00:00 84 03/04/18 00:00 97.9 84 16 123/89 (100) 100 03/03/18 22:00 107 03/03/18 20:00 104 03/03/18 20:00 97.5 104 18 130/94 (106) 96 03/03/18 19:06 100 21 03/03/18 19:00 91 26 120/88 (99) 100 03/03/18 19:00 91 03/03/18 18:00 96 30 140/90 (107) 98 03/03/18 18:00 96 03/03/18 17:00 90 24 115/82 (93) 100 03/03/18 17:00 90 03/03/18 16:00 97.6 97 31 127/93 (104) 100 03/03/18 16:00 97 03/03/18 15:00 102 03/03/18 15:00 102 32 131/94 (106) 100 03/03/18 14:00 93 25 127/97 (107) 100 03/03/18 14:00 93 03/03/18 13:00 84 26 141/98 (112) 03/03/18 13:00 84 -: 03/04/18 0200 03/04/18 0200 Physical Exam General Appearance: Malnourished Neck Neck Exam: Neck Supple Pulmonary Resp Exam: Decreased Bases Cardiology CV Exam: Regular Gastrointestinal/Abdomen GI Exam: Soft, Non-Tender, Bowel Sounds Present Extremeties Extremities Exam: No Edema (L BKA) Assessment/Plan Problem List: (1) Hyponatremia ICD Codes: E87.1 - Hypo-osmolality and hyponatremia Plan: 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6 - Hypokalemia Plan: Continue to replace Problem Qualifiers (1) Bilateral leg ulcer: Qualified Codes: L97.919 - Non-pressure chronic ulcer of unspecified part of right lower leg with unspecified severity; L97.929 - Non-pressure chronic ulcer of unspecified part of left lower leg with unspecified severity Lebron Hill MD Mar 04, 2018 12:45
--- NOTE | 2018-03-04 13:20 | HHI.IDPN ---
Subjective Subjective Remarks is a 42 y/o CF with PMHx significant for recurrent cellulitis, Hepatitis C treatment naive, IV drug abuse, reported history of Crohn's disease , COPD. Patient has had multiple hospitalizations most recently in Oct 2017 and 2017 for recurrent bilateral LE cellulitis. 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 Cryoglobulins were detected in low amounts and AMIE was positive. Patient received IV antibiotics and wound care and was discharged to follow up with in wound care clinic. Patient was discharged to infusion clinic to receive dose of Dalbavancin on 01/07 at that time her wounds her superficial fewer and not as many with less evidence of infection. To complicate matters patient does not have a home and her last year. She has been treated with steroids for her vasculitis related non infected ulcers in the past. The rest of the history was obtained by review of medical records. With this background patient was brought in by ambulance from a temporary penitentiary[facility]living facility where she is staying for evaluation of bilateral leg pain and altered mental status. One of the other residents became concerned about the patient today because of the way she was acting. They noticed several sores on her bilateral lower extremities. The patient admitted to others that she abused drugs a day prior to admission. Due to worsening mentation patient was intubated for airway protection. ICU course: Patient has high grade fevers and foot appeared to be worsening due to concern for Necrotizing fascitis a Surgery consult was placed. Podiatry evaluated patient and a stat Vascular consult to has been placed. Gen Surgery evaluated patient with me. The general opinion seems to be non salvageable left leg but await Vascular opinion. Currently not on pressors. Remains sedated. UO good. Skin lesions noted on bilateral hands on dorsal aspect with blisters. Also tip of nose appears necrotic with surrounding erythema. ID consulted for evaluation of sepsis, Mment of LLE wet septic gangrene, Right foot heel gangrene and bilateral LE cellulitis. Notes reviewed [facility]'Night events reviewed with RN. 02/27 had further revision of Left BKA and Right foot heel I&D in OR. No fevers No rash Extubated 02/27. Antibiotics Ancef IV Levaquin Lines Line sites with no e.o infection Past Medical History Past Medical History Crohn's disease per history Hepatitis C treatment melissa Recurrent cellulitis Past Surgical History Appendectomy Hysterectomy ? Some bowel surgery for Crohn's Allergies: Coded Allergies: codeine (Verified Allergy, Severe, 02/20/18) ketorolac (Verified Allergy, Severe, 02/20/18) penicillin G (Verified Allergy, Intermediate, Rash, 02/20/18) Objective . Vital Signs Date Time Temp Pulse Resp B/P (MAP) Pulse Ox O2 Delivery O2 Flow Rate FiO2 03/04/18 06:00 84 03/04/18 05:42 16 03/04/18 04:00 97.8 77 14 110/83 (92) 100 03/04/18 04:00 77 03/04/18 02:00 80 03/04/18 00:54 16 03/04/18 00:00 84 03/04/18 00:00 97.9 84 16 123/89 (100) 100 03/03/18 22:00 107 03/03/18 20:00 104 03/03/18 20:00 97.5 104 18 130/94 (106) 96 03/03/18 19:06 100 21 03/03/18 19:00 91 26 120/88 (99) 100 03/03/18 19:00 91 03/03/18 18:00 96 30 140/90 (107) 98 03/03/18 18:00 96 03/03/18 17:00 90 24 115/82 (93) 100 03/03/18 17:00 90 03/03/18 16:00 97.6 97 31 127/93 (104) 100 03/03/18 16:00 97 03/03/18 15:00 102 03/03/18 15:00 102 32 131/94 (106) 100 03/03/18 14:00 93 25 127/97 (107) 100 03/03/18 14:00 93 . Laboratory Tests Test 03/03/18 04:50 03/04/18 02:00 White Blood Count 4.1 TH/MM3 3.4 TH/MM3 Red Blood Count 4.17 MIL/MM3 3.80 MIL/MM3 Hemoglobin 10.9 GM/DL 10.3 GM/DL Hematocrit 31.5 % 29.1 % Mean Corpuscular Volume 75.5 FL 76.5 FL Mean Corpuscular Hemoglobin 26.2 PG 27.1 PG Mean Corpuscular Hemoglobin Concent 34.6 % 35.4 % Red Cell Distribution Width 18.1 % 18.4 % Platelet Count 278 TH/MM3 256 TH/MM3 Mean Platelet Volume 7.7 FL 8.2 FL Neutrophils (%) (Auto) 50.9 % 49.2 % Lymphocytes (%) (Auto) 36.1 % 38.3 % Monocytes (%) (Auto) 10.8 % 9.7 % Eosinophils (%) (Auto) 1.5 % 1.9 % Basophils (%) (Auto) 0.7 % 0.9 % Neutrophils # (Auto) 2.1 TH/MM3 1.7 TH/MM3 Lymphocytes # (Auto) 1.5 TH/MM3 1.3 TH/MM3 Monocytes # (Auto) 0.4 TH/MM3 0.3 TH/MM3 Eosinophils # (Auto) 0.1 TH/MM3 0.1 TH/MM3 Basophils # (Auto) 0.0 TH/MM3 0.0 TH/MM3 CBC Comment DIFF FINAL DIFF FINAL Differential Comment Laboratory Tests Test 03/02/18 17:20 03/02/18 20:50 03/03/18 01:00 03/03/18 04:50 Sodium Level 122 MEQ/L 123 MEQ/L 125 MEQ/L 127 MEQ/L Potassium Level 3.7 MEQ/L 3.1 MEQ/L Blood Urea Nitrogen 2 MG/DL Creatinine 0.24 MG/DL Random Glucose 86 MG/DL Total Protein 6.0 GM/DL Albumin 2.4 GM/DL Calcium Level 8.0 MG/DL Phosphorus Level 1.9 MG/DL Magnesium Level 1.6 MG/DL Alkaline Phosphatase 88 U/L Aspartate Amino Transf (AST/SGOT) 41 U/L Alanine Aminotransferase (ALT/SGPT) 27 U/L Total Bilirubin 0.5 MG/DL Chloride Level 92 MEQ/L Carbon Dioxide Level 24.1 MEQ/L Anion Gap 10 MEQ/L Estimat Glomerular Filtration Rate 313 ML/MIN Test 03/03/18 13:10 03/03/18 18:30 03/04/18 02:00 Sodium Level 128 MEQ/L 129 MEQ/L 130 MEQ/L Potassium Level 3.4 MEQ/L 3.3 MEQ/L Phosphorus Level 3.2 MG/DL 3.2 MG/DL Blood Urea Nitrogen 4 MG/DL Creatinine 0.39 MG/DL Random Glucose 88 MG/DL Calcium Level 8.0 MG/DL Magnesium Level 2.1 MG/DL Chloride Level 97 MEQ/L Carbon Dioxide Level 24.7 MEQ/L Anion Gap 8 MEQ/L Estimat Glomerular Filtration Rate 179 ML/MIN Imaging Last Impressions Chest X-Ray 02/23/18 0600 Signed Impressions: Service Date/Time: Friday, February 23, 2018 02:40 - CONCLUSION: Satisfactory chest appearance Francisco Shabazz MD Abdomen X-Ray 02/22/18 0000 Signed Impressions: Service Date/Time: Thursday, February 22, 2018 17:47 - CONCLUSION: 1. NG tip in stomach. Kevin Wells MD Lower Extremity CT 02/21/18 0000 Signed Impressions: Service Date/Time: Wednesday, February 21, 2018 17:58 - CONCLUSION: 1. Subcutaneous edema in the right lower extremity as above. No discrete abscess. No air locules to suggest gas gangrene. Kevin Wells MD Tibia/Fibula X-Ray 02/20/18 0000 Signed Impressions: Service Date/Time: Tuesday, February 20, 2018 11:01 - CONCLUSION: Soft tissue swelling and irregularity with no radiopaque foreign body. Balaji Zimmerman MD Head CT 02/20/18 0000 Signed Impressions: Service Date/Time: Tuesday, February 20, 2018 11:49 - CONCLUSION: Suboptimal exam secondary to streak and motion artifact with no evidence of hemorrhage or mass effect. Balaji Zimmerman MD Foot X-Ray 02/20/18 0000 Signed Impressions: Service Date/Time: Tuesday, February 20, 2018 11:00 - CONCLUSION: Soft tissue swelling with no radiopaque foreign body or underlying bony abnormality. Balaji Zimmerman MD Physical Exam GENERAL: Thin female, looks older tho stated age, NAD SKIN: Cool and dry. Multiple wounds both hands, tip of nose and R foot HEAD: Atraumatic. Normocephalic. No temporal or scalp tenderness. EYES: Pupils equal round and reactive. No scleral icterus. No injection or drainage. ENT: No nasal discharge, has lesion tip of nose NECK: Trachea midline. Supple, nontender, no meningeal signs. CARDIOVASCULAR: Regular rate and rhythm without murmurs, gallops, or rubs. RESPIRATORY: Clear to auscultation. Breath sounds equal bilaterally. No wheezes , rales, or rhonchi. GASTROINTESTINAL: Abdomen soft, non-tender, nondistended. MUSCULOSKELETAL: Dry dressing Lt BKA stump. Wounds dry R foot with eschar. Tenderness at heel. UE hand dorsum with areas of blackening and erythema and blisters noted. Tip of nose with area of blackening noted. NEUROLOGICAL: Sleeping after Ativan administration Psych unable to assess IV line sites with no e.o infection. Assessment & Plan Remarks Sepsis present on admission, better MSSA foot infection Left leg and foot with cellulitis, abscess and gangrene. s/p BKA. Right foot heel with cellulitis and gangrene Bilateral Hand cellulitis with blisters/wounds. Kleb pneumo UTI. Bilateral LE cellulitis with blisters. Clinically looks less likely to be Necrotizing fascitis and no gas on imaging. Does not appear to be spreading beyond margins demarcated with marker. Hepatitis C Cryoglobulinemia Vasculitis : AMIE positive. IVDA Acute resp failure on vent. Penicillin allergy: rash. has tolerated Cephalosporins in past. Recs: Continue Ancef IV Continue Levaquin oral for now. Follow cultures to adjust antibiotics. follow clinically if areas on face and hands worsen consider hand surgery consult and plastics for nose. The eschars in Right LE to be followed. Follow podiatry recs. Monitor progress D/W RN to cover for me this weekend and to cover 03/07/18 and 03/08/18. Zora Pompa MD Mar 04, 2018 13:20
[2018-03-04] MEDS: ACETAMINOPHEN/HYDROcodone 325 MG/10 MG TAB PO PRN (20:03)
[2018-03-05] VITALS (18 sets, daily range): BP systolic 121–161; BP diastolic 89–109; PULSE 78–109; RESP 21–33; TEMP 97.8–98.3; O2SAT 93–100
[2018-03-05] MEDS: ACETAMINOPHEN/HYDROcodone 325 MG/10 MG TAB PO PRN ×4 (01:52→21:58)
[2018-03-05] MEDS: INSULIN NovoLIN REGULAR SUPPLEMENTAL SCALE SQ SCH ×4 (04:00→22:00)
[2018-03-05] MEDS: CEFAZOLIN INJ 2,000 MG in SODIUM CHLORIDE 0.9% INJ 100 ML IV SCH ×3 (04:30→19:54)
[2018-03-05] MEDS: HEPARIN SODIUM - SQ 10,000 UNITS/ML VIAL SQ SCH ×2 (04:30→16:41)
[2018-03-05] MEDS: LORazepam 2 MG/ML VIAL IV PUSH PRN ×5 (04:31→21:58)
[2018-03-05 05:52] LABS: AUTOMATED NEUTROPHIL # 1.9 TH/MM3 (1.8-7.7); BASOPHIL % 0.8 % (0.0-2.0); EOSINOPHIL # 0.1 TH/MM3 (0-0.4); EOSINOPHIL % 2.1 % (0.0-4.0); HEMATOCRIT 29.6 % (35.0-46.0); HEMOGLOBIN 9.9 GM/DL (11.6-15.3); LYMPH % 40.3 % (9.0-44.0); LYMPHOCYTE # 1.6 TH/MM3 (1.0-4.8); MEAN CORPUSCULAR HEMOGLOBIN 26.1 PG (27.0-34.0); MEAN CORPUSCULAR HGB CONC 33.5 % (32.0-36.0); MEAN PLATELET VOLUME 7.9 FL (7.0-11.0); MONOCYTE # 0.3 TH/MM3 (0-0.9); NEUT % 48.8 % (16.0-70.0); PLATELET COUNT 326 TH/MM3 (150-450); RED CELL DISTRIBUTION WIDTH 18.1 % (11.6-17.2); WHITE BLOOD COUNT 3.9 TH/MM3 (4.0-11.0)
[2018-03-05 06:05] LABS: BICARBONATE 24.4 MEQ/L (21.0-32.0); CALCIUM 8.6 MG/DL (8.5-10.1); CREATININE 0.41 MG/DL (0.50-1.00)
[2018-03-05] MEDS: CHLORHEXIDINE 0.12% (ORAL KIT) 15 ML CUP MT SCH ×2 (08:00→19:54)
--- NOTE | 2018-03-05 08:34 | HHI.CCPN ---
Subjective Remarks/Hospital Course 02/20: 42-year-old female with history of polysubstance abuse, IVDU, brought in by ambulance from a temporary [place] [facility]living facility where she is staying for evaluation of bilateral leg pain and altered mental status. One of the other residents became concerned about the patient today because of the way she was acting. They noticed several sores on her bilateral lower extremities. The patient admits to IV drug abuse, last use was yesterday. She complains of pain in her bilateral legs, however is otherwise a very poor historian writhing in bed moaning in pain. Chart review shows that the patient has been admitted for this in the past. 02/21: Sedated, easily arousable, orally intubated on mechanical ventilation. Spiked a temperature 101.5 for which Syed cultures ordered and we are initiating empiric vancomycin and Levaquin. 2-D echo ordered to evaluate heart valves. She had a normal white count this morning. Wounds or bilateral lower extremities unchanged since admission and appeared to be chronic. 02/22: T-max 99.4. Patient underwent TTE this a.m., results pending. Consultation and evaluation performed by podiatry this a.m., vascular surgery urgently consulted. Plan scheduling for left BKA today. Multiple punctate lesions, possible emboli type wounds bilateral upper and lower extremities, as well as left nare. Patient remains sedated and intubated on fentanyl and Versed infusions currently. 02/23: CPAP trials initiated today, patient tolerated for approximately 30 minutes. Tube feeds initiated Jevity 1.5. Wound VAC to left BKA with minimal drainage. Patient to receive 2 units PRBCs per vascular surgery. 02/24: Afebrile. She remains sedated and intubated. left BKA wound VAC intact. Discussion with for return to OR tomorrow for wound closure. Plan with Dr. Philipp Ramos possible debridement of right heel also schedule tentatively for tomorrow. Patient tolerating tube feeds. CPAP trials tolerated today. Patient continues on normal saline infusion with KCl@ 100cc/ hr. Plan for NPO status tonight sodium level 134. Salt Tabs added to medication regimen. 02/25: Afebrile. No acute events overnight the patient remains sedated. Plan for scheduled revision and wound closure of left BKA with Dr. Cabrera as well as debridement of right heel with Dr. Ramos. Patient continues on intermittent CPAP trials. Tolerating tube feeding. 02/26: Patient underwent revision and wound closure of left BKA, as well as debridement right heel. Posttransfusion CBC is stable. Plan initiation of CPAP trials this afternoon, plan to transition to Precedex for SBT trial in a.m. for possible extubation secondary to high opioid requirements secondary to history of polysubstance abuse.PO narcotics added to medication regimen. IV fluids discontinued. 02/27: Currently tolerating CPAP 08/26, reduce pressure support of 5 if tolerated for 45 minutes get weaning parameters with possible extubation. Otherwise minimize sedation. Status post second stage left below-knee amputation. May need right-sided amputation also per Dr. Holder's note 02/28 Patient s/p extubation yesterday on room air oxygen when seen, afebrile. On no drips 03/01 Patient had ? seizure yesterday for MRI brain today per neuro. CT brain yesterday showed no acute findings, EEG showed mild encephalopathy no epileptic activity 03/02 Patient is lethargic given Ativan 4mg total during night for agitation. For MRV brain per neuro. 03/03 Patient is more awake and alert this morning. On 3% saline with Na level 126 from 122 yesterday. MRV yesterday showed no cerebral venous thrombosis . 03/04 No events overnight. Off 3%saline. Awake and alert. 03/05 No events overnight. Patient is lying in bed in NAD. Afebrile. Objective Vital Signs Date Time Temp Pulse Resp B/P (MAP) Pulse Ox O2 Delivery O2 Flow Rate FiO2 03/05/18 06:00 83 03/05/18 04:00 97.8 23 161/109 (126) 03/05/18 00:00 97 03/03/18 19:06 21 03/01/18 09:57 Nasal Cannula 2.00 Intake and Output 03/05/18 03/05/18 03/06/18 08:00 16:00 00:00 Intake Total 325 ml Output Total 1100 ml Balance -775 ml Result Diagram: 03/05/18 0510 03/05/18 0510 Other Results Laboratory Tests Test 03/05/18 05:10 White Blood Count 3.9 TH/MM3 Red Blood Count 3.80 MIL/MM3 Hemoglobin 9.9 GM/DL Hematocrit 29.6 % Mean Corpuscular Volume 78.0 FL Mean Corpuscular Hemoglobin 26.1 PG Mean Corpuscular Hemoglobin Concent 33.5 % Red Cell Distribution Width 18.1 % Platelet Count 326 TH/MM3 Mean Platelet Volume 7.9 FL Neutrophils (%) (Auto) 48.8 % Lymphocytes (%) (Auto) 40.3 % Monocytes (%) (Auto) 8.0 % Eosinophils (%) (Auto) 2.1 % Basophils (%) (Auto) 0.8 % Neutrophils # (Auto) 1.9 TH/MM3 Lymphocytes # (Auto) 1.6 TH/MM3 Monocytes # (Auto) 0.3 TH/MM3 Eosinophils # (Auto) 0.1 TH/MM3 Basophils # (Auto) 0.0 TH/MM3 CBC Comment DIFF FINAL Differential Comment Blood Urea Nitrogen 5 MG/DL Creatinine 0.41 MG/DL Random Glucose 84 MG/DL Calcium Level 8.6 MG/DL Sodium Level 134 MEQ/L Potassium Level 3.7 MEQ/L Chloride Level 101 MEQ/L Carbon Dioxide Level 24.4 MEQ/L Anion Gap 9 MEQ/L Estimat Glomerular Filtration Rate 169 ML/MIN Imaging Last Impressions Head/Brain Mag Res Venography 03/02/18 0000 Signed Impressions: Service Date/Time: Friday, March 02, 2018 08:36 - CONCLUSION: No evidence for cerebral venous thrombosis. Ata Friedman MD FACR Chest X-Ray 03/01/18 0000 Signed Impressions: Service Date/Time: Thursday, March 01, 2018 11:16 - CONCLUSION: No acute disease. Francisco Figueroa MD Brain MRI 03/01/18 0000 Signed Impressions: Service Date/Time: Thursday, March 01, 2018 15:27 - CONCLUSION: 1. 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 MRV examination may be performed if there is significant persistent clinical concern regarding dural venous sinus thrombosis. 2. Otherwise, unremarkable MRI examination of the brain. Lenny Dee MD Liver Ultrasound 02/28/18 0000 Signed Impressions: Service Date/Time: Wednesday, February 28, 2018 09:14 - CONCLUSION: 1. Gallbladder sludge 2. Medical renal disease Floyd Villatoro MD Head CT 02/28/18 0000 Signed Impressions: Service Date/Time: Wednesday, February 28, 2018 12:31 - CONCLUSION: 1. No intracranial abnormalities seen. 2. Air within the soft tissues adjacent to the posterior and lateral aspects of the right maxillary sinus. Francisco Figueroa MD Abdomen X-Ray 02/22/18 0000 Signed Impressions: Service Date/Time: Thursday, February 22, 2018 17:47 - CONCLUSION: 1. NG tip in stomach. Kevin Wells MD Lower Extremity CT 02/21/18 0000 Signed Impressions: Service Date/Time: Wednesday, February 21, 2018 17:58 - CONCLUSION: 1. Subcutaneous edema in the right lower extremity as above. No discrete abscess. No air locules to suggest gas gangrene. Kevin Wells MD Tibia/Fibula X-Ray 02/20/18 0000 Signed Impressions: Service Date/Time: Tuesday, February 20, 2018 11:01 - CONCLUSION: Soft tissue swelling and irregularity with no radiopaque foreign body. Balaji Zimmerman MD Foot X-Ray 02/20/18 0000 Signed Impressions: Service Date/Time: Tuesday, February 20, 2018 11:00 - CONCLUSION: Soft tissue swelling with no radiopaque foreign body or underlying bony abnormality. Balaji Zimmerman MD Procedures 02/22 left BKA 02/26 revision and wound closure left BKA and right heel debridement Objective Remarks Physical exam GENERAL: Well-developed, cachectic appearing lying in bed in [facility] SKIN: Several wounds/ulcerations to bilateral lower extremities with surrounding ecchymosis, no purulent drainage, no crepitus, no fluctuance or induration. s/p L BKA HEAD: Atraumatic. Normocephalic. EYES: Pupils equal and round, 3 mm, reactive to light. ENT: Mucous membranes pink and dry. NECK: Trachea midline. No JVD. No nuchal rigidity. CARDIOVASCULAR: S1-S2 regular, no gallop or murmur. No murmur appreciated. RESPIRATORY: Orally intubated on mechanical ventilation. Clear to auscultation. Breath sounds equal bilaterally. GASTROINTESTINAL: Abdomen soft, non-tender, nondistended. MUSCULOSKELETAL: Skin exam as above s/p L BKA. Multiple large blistering right lower extremities wounds. Multiple petechiae bilateral hands with blistering NEUROLOGICAL: Awake and alert A/P Assessment and Plan Assessment 42 year old female: Resp Insuff Encephalopathy secondary to substance abuse Hyponatremia Polysubstance abuse positive for amphetamines, cocaine, benzodiazepine, opioids Fever with suspected sepsis Left LLE with cellulitis, abscess and gangrene. s/p BKA. History of IV drug use Sinus Tachycardia Uncontrolled hypertension Hypoalbuminemia Malnutrition Postoperative pain Seizures Plan: Neuro: Monitor neuro status, awake and alert UDS: Cocaine, Amphetamines, Opiates, Benzos [place] every 4 hours as needed for pain control status post BKA [place] 10-325 q 6hr on Keppra, Neuro is following. 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 Coreg 3.125mg BID, On Lopressor/Labetalol IV PRN 02/22 2-D echo EF 25-30% Pulmonary: Oxygen keep sats >92% Bronchodilators, CXR 03/01: No acute disease GI/liver: On PO diet per speech Elevated AST, US liver: Gallbladder sludge. Medical renal disease Hepatitis profile reactive Hep C IgG ab Renal/: Monitor renal function, I/O's, electrolytes replacement per protocol. TSH: 1.58. Renal is following- on salt tabs 1gram TID serum osm: 250, urine osm: 627 likely SIADH. Na level 134 today ID: ID following, on Cefazolin and Levaquin Status post left BKA Wound care consulted for lower extremity leg wounds. Wound culture-staph aureus Sputum culture-Klebsiella C-diff PCR negative on 03/01 Endocrine: SSI for glycemic control if needed. Heme: Follow CBC. Transfuse for hemoglobin less than 8 Msk: Vascular surgery following , S/P left BKA. Prophylaxis:SQ Heparin, SCDs for DVT prophylaxis , on Pepcid for GI prophylaxis Lines: Right sided CVP, d/c central line Will sign off and transfer care to [facility] Level 2 Louie Siddiqui MD Mar 05, 2018 08:34
[2018-03-05] MEDS: SODIUM CHLORIDE 1 GRAM TAB PO SCH ×3 (08:51→18:00)
[2018-03-05] MEDS: LISINOPRIL 5 MG TAB PO SCH (08:51)
[2018-03-05] MEDS: CARVEDILOL 3.125 MG TAB PO SCH ×2 (08:51→19:54)
[2018-03-05] MEDS: SODIUM CHLORIDE 0.9% FLUSH 10 ML FLUSH IV FLUSH SCH ×2 (08:52→19:54)
[2018-03-05] MEDS: DOCUSATE SODIUM 50 MG/SENNA 8.6 MG TAB PO SCH ×2 (08:52→19:56)
[2018-03-05] MEDS: FAMOTIDINE 40 MG/5 ML LIQ 50 ML BTL NG SCH ×2 (08:53→19:55)
[2018-03-05] MEDS: COLLAGENASE OINT 30 GM TUBE TOPICAL SCH (08:53)
--- NOTE | 2018-03-05 10:04 | HHI.NPPN ---
Subjective History of Present Illness 42 year old with IVDA , cellulitis low Na Interval History Hyponatremia has improved. Review of Systems General Constitutional: Fatigue Objective Data Data Vital Signs Date Time Temp Pulse Resp B/P (MAP) Pulse Ox O2 Delivery O2 Flow Rate FiO2 03/05/18 08:00 83 03/05/18 08:00 98.0 83 26 146/104 (118) 98 03/05/18 06:00 83 03/05/18 04:00 87 03/05/18 04:00 97.8 87 23 161/109 (126) 03/05/18 02:00 90 03/05/18 00:00 98.0 86 28 135/97 (110) 97 03/05/18 00:00 86 03/04/18 22:00 87 03/04/18 20:00 106 03/04/18 20:00 97.9 106 0 152/108 (123) 98 03/04/18 19:00 101 22 132/95 (107) 97 03/04/18 19:00 101 03/04/18 18:00 101 03/04/18 18:00 101 27 122/101 (108) 100 03/04/18 17:00 85 03/04/18 17:00 85 24 121/88 (99) 99 03/04/18 16:00 96 03/04/18 16:00 97.7 96 21 138/107 (117) 94 03/04/18 15:00 88 03/04/18 15:00 88 22 141/98 (112) 03/04/18 14:00 102 132/92 (105) 99 03/04/18 14:00 102 03/04/18 13:00 82 25 127/87 (100) 100 03/04/18 13:00 82 03/04/18 12:00 97.9 83 22 119/79 (92) 100 03/04/18 12:00 83 03/04/18 11:00 84 27 120/84 (96) 100 03/04/18 11:00 84 -: 03/05/18 0510 03/05/18 0510 Physical Exam General Appearance: Malnourished Neck Neck Exam: Neck Supple Pulmonary Resp Exam: Decreased Bases Cardiology CV Exam: Regular Gastrointestinal/Abdomen GI Exam: Soft, Non-Tender, Bowel Sounds Present Extremeties Extremities Exam: No Edema (L BKA) Assessment/Plan Problem List: (1) Hyponatremia ICD Codes: E87.1 - Hypo-osmolality and hyponatremia Plan: Hyponatremia has improved. Needs fluid restriction. Salt tablet not to be used if patient has CHF as it will lead to fluid overload. (2) Polysubstance abuse ICD Codes: F19.10 - Other psychoactive substance abuse, uncomplicated Status: Acute Plan: Patient was counseled against (3) Bilateral leg ulcer ICD Codes: L97.919 - Non-pressure chronic ulcer of unspecified part of right lower leg with unspecified severity; L97.929 - Non-pressure chronic ulcer of unspecified part of left lower leg with unspecified severity Status: Acute Plan: Left BKA (4) Hypokalemia ICD Codes: E87.6 - Hypokalemia Plan: Continue to replace Problem Qualifiers (1) Bilateral leg ulcer: Qualified Codes: L97.919 - Non-pressure chronic ulcer of unspecified part of right lower leg with unspecified severity; L97.929 - Non-pressure chronic ulcer of unspecified part of left lower leg with unspecified severity Eriberto Santo MD Mar 05, 2018 10:04
[2018-03-05] MEDS: LEVOFLOXACIN 500 MG TAB PO SCH (10:27)
[2018-03-05] MEDS: levETIRAcetam INJ 500 MG in SODIUM CHLORIDE 0.9% INJ 100 ML IV SCH (12:20)
[2018-03-06] VITALS (21 sets, daily range): BP systolic 111–153; BP diastolic 81–106; PULSE 74–99; RESP 16–56; TEMP 97.5–98.2; O2SAT 94–100
[2018-03-06] MEDS: levETIRAcetam INJ 500 MG in SODIUM CHLORIDE 0.9% INJ 100 ML IV SCH ×3 (00:23→23:42)
[2018-03-06] MEDS: LORazepam 2 MG/ML VIAL IV PUSH PRN ×5 (02:36→23:42)
[2018-03-06] MEDS: INSULIN NovoLIN REGULAR SUPPLEMENTAL SCALE SQ SCH ×4 (04:00→21:30)
[2018-03-06] MEDS: CHLORHEXIDINE GLUCONATE 2 % 1 PACK (2 CLOTHS) TOP SCH (04:00)
[2018-03-06] MEDS: HEPARIN SODIUM - SQ 10,000 UNITS/ML VIAL SQ SCH ×2 (04:09→15:10)
[2018-03-06] MEDS: CEFAZOLIN INJ 2,000 MG in SODIUM CHLORIDE 0.9% INJ 100 ML IV SCH (04:09)
[2018-03-06] MEDS: ACETAMINOPHEN/HYDROcodone 325 MG/10 MG TAB PO PRN ×4 (04:10→21:37)
[2018-03-06 07:19] LABS: BASOPHIL # 0.1 TH/MM3 (0-0.2); BASOPHIL % 1.2 % (0.0-2.0); EOSINOPHIL # 0.1 TH/MM3 (0-0.4); EOSINOPHIL % 2.6 % (0.0-4.0); HEMATOCRIT 29.6 % (35.0-46.0); LYMPH % 41.7 % (9.0-44.0); LYMPHOCYTE # 1.9 TH/MM3 (1.0-4.8); MEAN CELL VOLUME 78.3 FL (80.0-100.0); MEAN CORPUSCULAR HEMOGLOBIN 26.6 PG (27.0-34.0); MEAN CORPUSCULAR HGB CONC 33.9 % (32.0-36.0); MEAN PLATELET VOLUME 8.5 FL (7.0-11.0); MONO % 9.1 % (0.0-8.0); MONOCYTE # 0.4 TH/MM3 (0-0.9); NEUT % 45.4 % (16.0-70.0); PLATELET COUNT 331 TH/MM3 (150-450); RED BLOOD COUNT 3.78 MIL/MM3 (4.00-5.30); WHITE BLOOD COUNT 4.5 TH/MM3 (4.0-11.0)
[2018-03-06 07:46] LABS: CREATININE 0.5 MG/DL (0.50-1.00)
[2018-03-06] MEDS: CHLORHEXIDINE 0.12% (ORAL KIT) 15 ML CUP MT SCH ×2 (08:00→20:00)
[2018-03-06] MEDS: DOCUSATE SODIUM 50 MG/SENNA 8.6 MG TAB PO SCH ×2 (09:00→21:00)
[2018-03-06] MEDS: LISINOPRIL 5 MG TAB PO SCH (09:08)
[2018-03-06] MEDS: CARVEDILOL 3.125 MG TAB PO SCH ×2 (09:08→21:27)
[2018-03-06] MEDS: SODIUM CHLORIDE 1 GRAM TAB PO SCH ×3 (09:08→17:10)
[2018-03-06] MEDS: COLLAGENASE OINT 30 GM TUBE TOPICAL SCH (09:11)
[2018-03-06] MEDS: FAMOTIDINE 40 MG/5 ML LIQ 50 ML BTL NG SCH ×2 (09:12→21:00)
[2018-03-06] MEDS: SODIUM CHLORIDE 0.9% FLUSH 10 ML FLUSH IV FLUSH SCH ×2 (09:12→21:23)
[2018-03-06] MEDS: LEVOFLOXACIN 500 MG TAB PO SCH (10:11)
[2018-03-06] MEDS: ceFAZolin 2 GM/DEX PREMIX 50 ML IV SCH ×2 (12:40→21:22)
--- NOTE | 2018-03-06 15:05 | HHI.PR ---
Subjective Remarks 02/20: 42-year-old female with history of polysubstance abuse, IVDU, brought in by ambulance from a temporary skilled nursing/living facility where she is staying for evaluation of bilateral leg pain and altered mental status. One of the other residents became concerned about the patient today because of the way she was acting. They noticed several sores on her bilateral lower extremities. The patient admits to IV drug abuse, last use was yesterday. She complains of pain in her bilateral legs, however is otherwise a very poor historian writhing in bed moaning in pain. Chart review shows that the patient has been admitted for this in the past. 02/21: Sedated, easily arousable, orally intubated on mechanical ventilation. Spiked a temperature 101.5 for which Syed cultures ordered and we are initiating empiric vancomycin and Levaquin. 2-D echo ordered to evaluate heart valves. She had a normal white count this morning. Wounds or bilateral lower extremities unchanged since admission and appeared to be chronic. 02/22: T-max 99.4. Patient underwent TTE this a.m., results pending. Consultation and evaluation performed by podiatry this a.m., vascular surgery urgently consulted. Plan scheduling for left BKA today. Multiple punctate lesions, possible emboli type wounds bilateral upper and lower extremities, as well as left nare. Patient remains sedated and intubated on fentanyl and Versed infusions currently. 02/23: CPAP trials initiated today, patient tolerated for approximately 30 minutes. Tube feeds initiated Jevity 1.5. Wound VAC to left BKA with minimal drainage. Patient to receive 2 units PRBCs per vascular surgery. 02/24: Afebrile. She remains sedated and intubated. left BKA wound VAC intact. Discussion with for return to OR tomorrow for wound closure. Plan with Dr. hPilipp Ramos possible debridement of right heel also schedule tentatively for tomorrow. Patient tolerating tube feeds. CPAP trials tolerated today. Patient continues on normal saline infusion with KCl@ 100cc/ hr. Plan for NPO status tonight sodium level 134. Salt Tabs added to medication regimen. 02/25: Afebrile. No acute events overnight the patient remains sedated. Plan for scheduled revision and wound closure of left BKA with Dr. Jazeravic as well as debridement of right heel with Dr. Ramos. Patient continues on intermittent CPAP trials. Tolerating tube feeding. 02/26: Patient underwent revision and wound closure of left BKA, as well as debridement right heel. Posttransfusion CBC is stable. Plan initiation of CPAP trials this afternoon, plan to transition to Precedex for SBT trial in a.m. for possible extubation secondary to high opioid requirements secondary to history of polysubstance abuse.PO narcotics added to medication regimen. IV fluids discontinued. 02/27: Currently tolerating CPAP 08/26, reduce pressure support of 5 if tolerated for 45 minutes get weaning parameters with possible extubation. Otherwise minimize sedation. Status post second stage left below-knee amputation. May need right-sided amputation also per Dr. Holder's note 02/28 Patient s/p extubation yesterday on room air oxygen when seen, afebrile. On no drips 03/01 Patient had ? seizure yesterday for MRI brain today per neuro. CT brain yesterday showed no acute findings, EEG showed mild encephalopathy no epileptic activity 03/02 Patient is lethargic given Ativan 4mg total during night for agitation. For MRV brain per neuro. 03/03 Patient is more awake and alert this morning. On 3% saline with Na level 126 from 122 yesterday. MRV yesterday showed no cerebral venous thrombosis . 03/04 No events overnight. Off 3%saline. Awake and alert. 03/05 No events overnight. Patient is lying in bed in NAD. Afebrile. 03-06 transferred to our service today no new complaints Monitor sodium Reconsult wound CARE Discussed with RN and patient Guarded prognosis Transfer out of ICU Objective Vitals Vital Signs Date Time Temp Pulse Resp B/P (MAP) Pulse Ox O2 Delivery O2 Flow Rate FiO2 03/06/18 12:40 22 03/06/18 12:00 98.0 81 24 144/106 (119) 100 03/06/18 12:00 81 03/06/18 10:00 99 03/06/18 09:00 99 22 131/93 (106) 99 03/06/18 08:00 98 03/06/18 08:00 97.7 98 20 128/94 (105) 100 03/06/18 06:00 82 03/06/18 04:30 98.2 88 56 100 03/06/18 04:00 86 03/06/18 04:00 86 24 137/105 (116) 100 03/06/18 03:30 89 24 100 03/06/18 03:00 84 25 125/94 (104) 100 03/06/18 02:30 75 24 100 03/06/18 02:00 80 03/06/18 02:00 80 21 153/104 (120) 100 03/06/18 01:30 79 21 03/06/18 01:00 82 21 131/95 (107) 100 03/06/18 00:30 83 25 100 03/06/18 00:00 92 03/06/18 00:00 98.0 92 21 111/81 (91) 99 03/05/18 23:30 101 23 98 03/05/18 23:00 93 25 128/89 (102) 99 03/05/18 22:30 94 33 99 03/05/18 22:00 100 23 136/92 (107) 100 03/05/18 22:00 100 03/05/18 21:30 78 25 100 03/05/18 21:00 83 25 134/98 (110) 100 03/05/18 20:30 97 26 100 03/05/18 20:00 100 03/05/18 20:00 98.1 100 28 123/93 (103) 100 03/05/18 18:00 92 03/05/18 16:00 98.3 100 23 121/93 (102) 100 03/05/18 16:00 100 I/O 03/05/18 03/05/18 03/05/18 03/06/18 03/06/18 03/06/18 07:00 15:00 23:00 07:00 15:00 23:00 Intake Total 325 ml 225 ml 320 ml 325 ml Output Total 1100 ml 525 ml 550 ml Balance -775 ml 225 ml -205 ml -225 ml Intake Oral 100 ml 200 ml 100 ml IV Total 225 ml 225 ml 120 ml 225 ml Output Urine Total 1100 ml 525 ml 550 ml # Bowel Movements 3 5 2 Result Diagram: 03/06/18 0505 03/06/18 0505 Other Results Laboratory Tests Test 03/03/18 18:30 03/04/18 02:00 03/05/18 05:10 03/06/18 05:05 Sodium Level 129 MEQ/L 130 MEQ/L 134 MEQ/L 131 MEQ/L Potassium Level 3.4 MEQ/L 3.3 MEQ/L 3.7 MEQ/L 3.6 MEQ/L Phosphorus Level 3.2 MG/DL 3.2 MG/DL White Blood Count 3.4 TH/MM3 3.9 TH/MM3 4.5 TH/MM3 Red Blood Count 3.80 MIL/MM3 3.80 MIL/MM3 3.78 MIL/MM3 Hemoglobin 10.3 GM/DL 9.9 GM/DL 10.0 GM/DL Hematocrit 29.1 % 29.6 % 29.6 % Mean Corpuscular Volume 76.5 FL 78.0 FL 78.3 FL Mean Corpuscular Hemoglobin 27.1 PG 26.1 PG 26.6 PG Mean Corpuscular Hemoglobin Concent 35.4 % 33.5 % 33.9 % Red Cell Distribution Width 18.4 % 18.1 % 19.0 % Platelet Count 256 TH/MM3 326 TH/MM3 331 TH/MM3 Mean Platelet Volume 8.2 FL 7.9 FL 8.5 FL Neutrophils (%) (Auto) 49.2 % 48.8 % 45.4 % Lymphocytes (%) (Auto) 38.3 % 40.3 % 41.7 % Monocytes (%) (Auto) 9.7 % 8.0 % 9.1 % Eosinophils (%) (Auto) 1.9 % 2.1 % 2.6 % Basophils (%) (Auto) 0.9 % 0.8 % 1.2 % Neutrophils # (Auto) 1.7 TH/MM3 1.9 TH/MM3 2.0 TH/MM3 Lymphocytes # (Auto) 1.3 TH/MM3 1.6 TH/MM3 1.9 TH/MM3 Monocytes # (Auto) 0.3 TH/MM3 0.3 TH/MM3 0.4 TH/MM3 Eosinophils # (Auto) 0.1 TH/MM3 0.1 TH/MM3 0.1 TH/MM3 Basophils # (Auto) 0.0 TH/MM3 0.0 TH/MM3 0.1 TH/MM3 CBC Comment DIFF FINAL DIFF FINAL DIFF FINAL Differential Comment Blood Urea Nitrogen 4 MG/DL 5 MG/DL 10 MG/DL Creatinine 0.39 MG/DL 0.41 MG/DL 0.50 MG/DL Random Glucose 88 MG/DL 84 MG/DL 88 MG/DL Calcium Level 8.0 MG/DL 8.6 MG/DL 9.0 MG/DL Magnesium Level 2.1 MG/DL Chloride Level 97 MEQ/L 101 MEQ/L 98 MEQ/L Carbon Dioxide Level 24.7 MEQ/L 24.4 MEQ/L 24.0 MEQ/L Anion Gap 8 MEQ/L 9 MEQ/L 9 MEQ/L Estimat Glomerular Filtration Rate 179 ML/MIN 169 ML/MIN 134 ML/MIN Imaging Last Impressions Head/Brain Mag Res Venography 03/02/18 0000 Signed Impressions: Service Date/Time: Friday, March 02, 2018 08:36 - CONCLUSION: No evidence for cerebral venous thrombosis. Ata Friedman MD FACR Chest X-Ray 03/01/18 0000 Signed Impressions: Service Date/Time: Thursday, March 01, 2018 11:16 - CONCLUSION: No acute disease. Francisco Figueroa MD Brain MRI 03/01/18 0000 Signed Impressions: Service Date/Time: Thursday, March 01, 2018 15:27 - CONCLUSION: 1. 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 MRV examination may be performed if there is significant persistent clinical concern regarding dural venous sinus thrombosis. 2. Otherwise, unremarkable MRI examination of the brain. Lenny Dee MD Liver Ultrasound 02/28/18 0000 Signed Impressions: Service Date/Time: Wednesday, February 28, 2018 09:14 - CONCLUSION: 1. Gallbladder sludge 2. Medical renal disease Floyd Villatoro MD Head CT 02/28/18 0000 Signed Impressions: Service Date/Time: Wednesday, February 28, 2018 12:31 - CONCLUSION: 1. No intracranial abnormalities seen. 2. Air within the soft tissues adjacent to the posterior and lateral aspects of the right maxillary sinus. Francisco Figueroa MD Abdomen X-Ray 02/22/18 0000 Signed Impressions: Service Date/Time: Thursday, February 22, 2018 17:47 - CONCLUSION: 1. NG tip in stomach. Kevin Wells MD Lower Extremity CT 02/21/18 0000 Signed Impressions: Service Date/Time: Wednesday, February 21, 2018 17:58 - CONCLUSION: 1. Subcutaneous edema in the right lower extremity as above. No discrete abscess. No air locules to suggest gas gangrene. Kevin Wells MD Tibia/Fibula X-Ray 02/20/18 0000 Signed Impressions: Service Date/Time: Tuesday, February 20, 2018 11:01 - CONCLUSION: Soft tissue swelling and irregularity with no radiopaque foreign body. Balaji Zimmerman MD Foot X-Ray 02/20/18 0000 Signed Impressions: Service Date/Time: Tuesday, February 20, 2018 11:00 - CONCLUSION: Soft tissue swelling with no radiopaque foreign body or underlying bony abnormality. Balaji Zimmerman MD Objective Remarks GENERAL: Awake alert and oriented talkative and cooperative appears very sickly and pale and cachectic SKIN: Warm and dry. Left below the knee amputation dressed right lower extremity with multiple large wounds involving the austin downward HEAD: Atraumatic. Normocephalic. EYES: Pupils equal and round. No scleral icterus. No injection or drainage. Extractor muscles intact ENT: No nasal bleeding or discharge. Mucous membranes pink and moist. Tongue is midline NECK: Trachea midline. No JVD. Supple CARDIOVASCULAR: Regular rate and rhythm. S1-S2 no S3 or S4 RESPIRATORY: No accessory muscle use. Clear to auscultation. Breath sounds equal bilaterally. GASTROINTESTINAL: Abdomen soft, non-tender, nondistended. Hepatic and splenic margins not palpable. MUSCULOSKELETAL: Extremities without clubbing, cyanosis, or edema. No obvious deformities. Left below the knee amputation dressed right. Lower extremity with multiple large wounds involving the austin downward NEUROLOGICAL: Awake and alert. No obvious cranial nerve deficits. Motor grossly within normal limits. 4 out of 5 muscle strength in the arms and legs. Normal speech. PSYCHIATRIC: INAppropriate mood and affect; insight and judgment ABnormal. Procedures /3 left BKA / revision and wound closure left BKA and right heel debridement Medications and IVs Current Medications Sodium Chloride 1,000 ml @ 1,000 mls/hr Q1H ONCE IV Last administered on at 10:32; Start 02/20/18 at 10:10; Stop 02/20/18 at 11:09; Status DC Clindamycin/ Sodium Chloride 50 ml @ 100 mls/hr ONCE ONCE IV Last administered on 02/20/18at 10:32; Start 02/20/18 at 10:15; Stop 02/20/18 at 10:44; Status DC Lorazepam (Ativan Inj) 1 mg ONCE ONCE IV PUSH Last administered on 02/20/18 11 :15; Start 02/20/18 at 11:15; Stop 02/20/18 at 11:16; Status DC Sodium Chloride 1,000 ml @ 999 mls/hr BOLUS ONCE IV Last administered on 11:25; Start 02/20/18 at 11:30; Stop 02/20/18 at 12:30; Status DC Lorazepam (Ativan Inj) 1 mg ONCE ONCE IV PUSH Last administered on 02/20/18at 11 :29; Start 02/20/18 at 11:30; Stop 02/20/18 at 11:31; Status DC Lorazepam (Ativan Inj) 2 mg ONCE ONCE IV PUSH Last administered on 02/20/18 13 :02; Start 02/20/18 at 12:45; Stop 02/20/18 at 12:46; Status DC Potassium Chloride/Sodium Chloride 1,000 ml @ 100 mls/hr Q10H IV Last administered on 02/26/18 09:43; Start 02/20/18 at 14:57; Stop 02/27/18 at 19:40; Status DC Sodium Chloride (NS Flush) 2 ml UNSCH PRN IV FLUSH FLUSH AFTER USING IV ACCESS ; Start 02/20/18 at 15:00 Sodium Chloride (NS Flush) 2 ml BID IV FLUSH Last administered on 03/06/18 09: 12; Start 02/20/18 at 21:00 Acetaminophen (Tylenol) 650 mg Q6H PRN PO PAIN 1-10 AND/OR FEVER >101F Last administered on 03/04/18at 04:42; Start 02/20/18 at 15:00 Lorazepam (Ativan Inj) 2 mg Q4H PRN IV PUSH Agitation/Sedation Last administered on 03/06/18 13:24; Start 02/20/18 at 15:00 Ondansetron HCl (Zofran Inj) 4 mg Q6H PRN IV PUSH NAUSEA OR VOMITING Last administered on 02/27/18 20:06; Start 02/20/18 at 15:00 Albuterol/ Ipratropium (Duoneb Neb) 1 ampule Q4HR NEB PRN INH WHEEZING Last administered on 02/27/18 03:21; Start 02/20/18 at 15:00 Heparin Sodium (Porcine) (Heparin Inj) 5,000 units Q12H SQ Last administered on 03/06/18at 04:09; Start 02/20/18 at 16:00 Miscellaneous Information 1 Q361D XX ; Start 02/20/18 at 15:00 Chlorhexidine Gluconate (Chlorhexidine 2% Cloth) Taper DAILY@04 TOP Last administered on 03/04/18at 04:00; Start 02/21/18 at 04:00; Stop 02/17/19 at 03:59 Chlorhexidine Gluconate (Chlorhexidine 2% Cloth) 3 pack UNSCH PRN TOP HYGIENIC CARE; Start 02/20/18 at 15:00 Senna/Docusate Sodium (Damari-Colace) 1 tab BID PO Last administered on 02/28/18at 21:27; Start 02/21/18 at 09:00 Magnesium Hydroxide (Milk Of Magnesia Liq) 30 ml Q12H PRN PO Mild constipation ; Start 02/20/18 at 15:00 Sennosides (Senokot) 17.2 mg Q12H PRN PO Moderate constipation; Start 02/20/18 at 15:00 Bisacodyl (Dulcolax Supp) 10 mg DAILY PRN RECTAL SEVERE CONSITIPATION; Start at 15:00 Lactulose (Lactulose Liq) 30 ml DAILY PRN PO SEVERE CONSITIPATION Last administered on 02/25/18at 20:14; Start 02/20/18 at 15:00 Potassium Chloride 100 ml @ 50 mls/hr Q2H PRN IV For Potassium 2.8 - 3.2 mEq/L ; Start 02/20/18 at 15:00 Potassium Chloride 100 ml @ 50 mls/hr Q2H PRN IV For Potassium 2.8 - 3.2 mEq/ L Last administered on 03/02/18at 12:11; Start 02/20/18 at 15:00 Potassium Bicarb/ Potassium Chloride (K-Lyte Cl Eff) 50 meq UNSCH PRN PO For Potassium 3.3 - 3.5 mEq/L; Start 02/20/18 at 15:00 Potassium Chloride 100 ml @ 25 mls/hr UNSCH PRN IV For Potassium 3.3 - 3.5 mEq /L; Start 02/20/18 at 15:00 Potassium Chloride 100 ml @ 50 mls/hr Q2H PRN IV For Potassium 3.3 - 3.5 mEq/ L Last administered on 03/01/18at 03:39; Start 02/20/18 at 15:00 Magnesium Sulfate 4 gm/Sodium Chloride 100 ml @ 50 mls/hr UNSCH PRN IV For Magnesium 0.9 - 1.1 mg/dL; Start 02/20/18 at 15:00 Magnesium Oxide (Mag-Ox) 800 mg UNSCH PRN PO For Magnesium 1.2 - 1.6 mg/dL; Start 02/20/18 at 15:00 Magnesium Sulfate 2 gm/Sodium Chloride 100 ml @ 50 mls/hr UNSCH PRN IV For Magnesium 1.2 - 1.6 mg/dL Last administered on 03/03/18at 14:47; Start 02/20/18 at 15:00 Potassium Phosphate (K-Phos) 2,000 mg Q4H PRN PO For Phosphorus < 2.5 mg/dL; Start 02/20/18 at 15:00 Sodium Phosphate 30 mmol/Sodium Chloride 250 ml @ 42 mls/hr UNSCH PRN IV For Phosphorus < 2.5 mg/dL; Start 02/20/18 at 15:00 Potassium Phosphate (K-Phos) 2,000 mg UNSCH PRN PO/TUBE SEE LABEL COMMENTS; Start 02/20/18 at 15:00 Potassium Phosphate 30 mmol/ Sodium Chloride 260 ml @ 42 mls/hr UNSCH PRN IV SEE LABEL COMMENTS; Start 02/20/18 at 15:00 Metoprolol Tartrate (Lopressor Inj) 5 mg Q6H PRN IV PUSH heart rate greater than 130/m Last administered on 03/02/18at 04:12; Start 02/20/18 at 16:45 Labetalol HCl (Trandate Inj) 10 mg Q4H PRN IV PUSH SBP greater than 160mm Hg Last administered on 03/02/18at 06:21; Start 02/20/18 at 16:45 Labetalol HCl (Trandate Inj) 10 mg ONCE STAT IV PUSH ; Start 02/20/18 at 16:43; Stop 02/20/18 at 16:52; Status DC Dexmedetomidine HCl 200 mcg/ Sodium Chloride 52 ml @ 2.08 mls/hr TITRATE PRN IV SEDATION Last administered on 02/27/18at 08:31; Start 02/20/18 at 18:00; Stop at 08:52; Status DC Etomidate (Amidate Inj) 40 mg STK-MED ONCE .ROUTE ; Start 02/20/18 at 19:08; Stop 02/20/18 at 19:09; Status DC Chlorhexidine Gluconate (Peridex 0.12% Liq) 15 ml BID@08,20 MT Last administered on 03/03/18at 20:00; Start 02/20/18 at 20:00 Midazolam HCl 100 ml @ 2 mls/hr TITRATE PRN IV SEDATION Last administered on 02/26/18at 10:13; Start 02/20/18 at 19:15; Stop 02/28/18 at 08:52; Status DC Fentanyl Citrate 250 ml @ 5 mls/hr TITRATE PRN IV SEDATION Last administered on 02/26/18at 12:40; Start 02/20/18 at 19:15; Stop 02/28/18 at 08:52; Status DC Midazolam HCl (Versed Inj) 5 mg STK-MED ONCE .ROUTE ; Start 02/20/18 at 19:21; Stop 02/20/18 at 19:22; Status DC Fentanyl Citrate (fentaNYL INJ) 100 mcg STK-MED ONCE .ROUTE ; Start 02/20/18 at 19:21; Stop 02/20/18 at 19:22; Status DC Propofol 50 ml @ As Directed STK-MED ONCE .ROUTE ; Start 02/20/18 at 20:48; Stop 02/20/18 at 20:49; Status DC Propofol 100 ml @ 1.2 mls/hr TITRATE PRN IV SEDATION Last administered on at 18:47; Start 02/20/18 at 21:00; Stop 03/02/18 at 08:05; Status DC Acetaminophen 100 ml @ 400 mls/hr Q6H PRN IV temp greater than 101; Start 02/21 at 13:00 Vancomycin HCl 550 mg/Sodium Chloride 255.5 ml @ 250 mls/hr Q12H IV Last administered on 02/22/18at 01:37; Start 02/21/18 at 14:00; Stop 02/22/18 at 11:25; Status DC Levofloxacin/ Dextrose 100 ml @ 100 mls/hr Q24H IV Last administered on at 13:09; Start 02/21/18 at 14:00; Stop 02/23/18 at 10:42; Status DC Clindamycin/ Sodium Chloride 50 ml @ 100 mls/hr Q6H IV ; Start 02/21/18 at 18:00 ; Stop 02/21/18 at 18:00; Status DC Clindamycin Phosphate 600 mg/ Sodium Chloride 104 ml @ 208 mls/hr Q6H IV Last administered on 02/27/18at 05:44; Start 02/21/18 at 18:00; Stop 02/27/18 at 10:22; Status DC Iohexol (Omnipaque 350 Inj) 93 ml STK-MED ONCE IVCONTRAST Last administered on 02/21/18at 18:26; Start 02/21/18 at 18:26; Stop 02/21/18 at 18:27; Status DC Pharmacy Profile Note 0 ml @ 0 mls/hr UNSCH OTHER ; Start 02/22/18 at 12:00; Stop 02/27/18 at 10:22; Status DC Cefepime HCl 2000 mg/Sodium Chloride 100 ml @ 200 mls/hr Q8H IV Last administered on 02/27/18at 08:30; Start 02/22/18 at 10:00; Stop 02/27/18 at 10:22; Status DC Vancomycin HCl 750 mg/Sodium Chloride 257.5 ml @ 250 mls/hr Q8H IV Last administered on 02/23/18at 14:55; Start 02/22/18 at 14:00; Stop 02/23/18 at 15:12; Status DC Miscellaneous Information SPECIFIC LAB TO BE DRAWN:VANCOMYCIN TROUGH DATE TO... ONCE ONCE .XX ; Start 02/23/18 at 13:45; Stop 02/23/18 at 13:46; Status DC Famotidine (Pepcid Liq) 20 mg BID NG Last administered on 03/06/18at 09:12; Start 02/22/18 at 21:00 Artificial Tears (Tears Naturale Opth Soln) 1 drop Q4H PRN EACH EYE DRY EYE Last administered on 02/23/18at 07:47; Start 02/22/18 at 13:00 Sodium Phosphate 15 mmol/Sodium Chloride 105 ml @ 26.25 mls/ hr ONCE ONCE IV Last administered on 02/22/18at 14:17; Start 02/22/18 at 13:45; Stop 02/22/18 at 17: 44; Status DC Vancomycin HCl 1000 mg/Sodium Chloride 250 ml @ 250 mls/hr Q8H IV Last administered on 02/27/18at 05:45; Start 02/23/18 at 22:00; Stop 02/27/18 at 10:22; Status DC Miscellaneous Information SPECIFIC LAB TO BE DRAWN:VANCOMYCIN TROUGH DATE TO... ONCE ONCE .XX Last administered on 02/25/18at 05:45; Start 02/25/18 at 05:45; Stop 02/25/18 at 05:46; Status DC Cefazolin Sodium 2000 mg/Sodium Chloride 120 ml @ 240 mls/hr Q8H IV Last administered on 03/06/18at 04:09; Start 02/23/18 at 20:00; Stop 03/06/18 at 05:00 ; Status DC Sodium Chloride (Sodium Chloride) 1 gm DAILY PO Last administered on 02/28/18at 09:00; Start 02/24/18 at 18:00; Stop 03/03/18 at 18:17; Status DC Lactated Ringer's 1,000 ml @ As Directed STK-MED ONCE IV ; Start 02/22/18 at 12: 00; Stop 02/25/18 at 08:22; Status DC Vecuronium Tenino (Norcuron 20 Mg Inj) 20 mg STK-MED ONCE IV ; Start 02/22/18 at 12:00; Stop 02/25/18 at 08:22; Status DC Sterile Water (Sterile Water For Injection) 20 ml STK-MED ONCE IV ; Start at 12:00; Stop 02/25/18 at 08:22; Status DC Acetaminophen/ Hydrocodone Bitart (Ringling 10-325 Mg) 1 tab Q6H PRN PO PAIN SCALE 7 TO 10 Last administered on 03/06/18at 10:12; Start 02/25/18 at 18:00 Bupivacaine HCl (Marcaine Pf 0.25% Inj) 30 ml STK-MED ONCE .ROUTE ; Start at 09:00; Stop 02/26/18 at 09:01; Status DC Ketamine HCl (Ketalar Inj) 50 mg STK-MED ONCE .ROUTE ; Start 02/26/18 at 10:02; Stop 02/26/18 at 10:03; Status DC Cefazolin Sodium (Ancef Inj) 2,000 mg STK-MED ONCE .ROUTE Last administered on 02/26/18at 11:42; Start 02/26/18 at 11:26; Stop 02/26/18 at 11:27; Status DC Clindamycin Phosphate (Cleocin Inj) 600 mg STK-MED ONCE .ROUTE Last administered on 02/26/18at 11:42; Start 02/26/18 at 11:26; Stop 02/26/18 at 11:27; Status DC Fentanyl Citrate (fentaNYL INJ) 200 mcg STK-MED ONCE .ROUTE ; Start 02/26/18 at 12:36; Stop 02/26/18 at 12:37; Status DC Levofloxacin (Levaquin) 500 mg DAILY@1100 PO Last administered on 03/06/18at 10: 11; Start 02/28/18 at 11:00 Lisinopril (Prinivil) 5 mg DAILY PO Last administered on 03/06/18at 09:08; Start 02/28/18 at 09:00 Sodium Chloride 1,000 ml @ 125 mls/hr Q8H IV Last administered on 03/02/18at 06 :47; Start 02/28/18 at 09:00; Stop 03/02/18 at 08:05; Status DC Dextrose (D50w (Vial) Inj) 50 ml UNSCH PRN IV PUSH HYPOGLYCEMIA-SEE COMMENTS; Start 02/28/18 at 08:45 Glucagon (Glucagon Inj) 1 mg UNSCH PRN OTHER HYPOGLYCEMIA-SEE COMMENTS; Start 02/28/18 at 08:45 Insulin Human Regular (NovoLIN R SUPPLEMENTAL SCALE) 1 Q6H SQ ; Start 02/28/18 at 10:00 Magnesium Sulfate/ Dextrose 100 ml @ 100 mls/hr Q1H IV Last administered on 02/28/18at 18:37; Start 02/28/18 at 12:00; Stop 02/28/18 at 13:59; Status DC Levetriacetam 500 mg/Sodium Chloride 105 ml @ 420 mls/hr Q12H IV Last administered on 03/06/18at 12:40; Start 02/28/18 at 12:00 Lorazepam (Ativan Inj) 1 mg Q2H PRN IV PUSH seizures; Start 02/28/18 at 13:00; Stop 03/02/18 at 08:05; Status DC Morphine Sulfate (Morphine Inj) 1 mg ONCE ONCE IV PUSH Last administered on 02/28/18at 18:38; Start 02/28/18 at 16:45; Stop 02/28/18 at 16:59; Status DC Carvedilol (Coreg) 3.125 mg Q12HR PO Last administered on 03/06/18at 09:08; Start 03/01/18 at 09:00 Lidocaine HCl (Xylocaine-Mpf 1% Inj) 5 ml STK-MED ONCE OTHER ; Start 02/26/18 at 12:00; Stop 03/01/18 at 09:46; Status DC Rocuronium Tenino (Zemuron Inj) 100 mg STK-MED ONCE IV PUSH ; Start 02/26/18 at 12:00; Stop 03/01/18 at 09:46; Status DC Phenylephrine HCl (Neosynephrine/ NS 1000 Mcg/10ml Syr) 1,000 mcg STK-MED ONCE IV ; Start 02/26/18 at 12:00; Stop 03/01/18 at 09:47; Status DC Dexamethasone Sodium Phosphate (Decadron Inj) 4 mg STK-MED ONCE IV ; Start at 12:00; Stop 03/01/18 at 09:47; Status DC Ondansetron HCl (Zofran Inj) 4 mg STK-MED ONCE IV PUSH ; Start 02/26/18 at 12:00 ; Stop 03/01/18 at 09:47; Status DC Propofol (Diprivan 200 Mg/20 ml Inj) 200 mg STK-MED ONCE IV ; Start 02/26/18 at 12:00; Stop 03/01/18 at 09:47; Status DC Gadodiamide (Omniscan Pf Inj) 7 ml STK-MED ONCE IVCONTRAST Last administered on 03/01/18at 15:49; Start 03/01/18 at 15:49; Stop 03/01/18 at 15:50; Status DC Sodium Chloride 250 ml @ 30 mls/hr ONCE ONCE IV Last administered on at 08:00; Start 03/02/18 at 08:00; Stop 03/02/18 at 16:19; Status DC Gadodiamide (Omniscan Pf Inj) 20 ml STK-MED ONCE IV PUSH Last administered on at 09:00; Start 03/02/18 at 09:00; Stop 03/02/18 at 09:01; Status DC Sodium Chloride 250 ml @ 30 mls/hr CONTINUOUS IV ; Start 03/02/18 at 16:45; Stop 03/03/18 at 12:40; Status DC Collagenase (Santyl Oint) 1 applic DAILY TOPICAL Last administered on at 09:11; Start 03/02/18 at 17:30 Potassium Phosphate 30 mmol/ Sodium Chloride 260 ml @ 42 mls/hr UNSCH PRN IV SEE LABEL COMMENTS Last administered on 03/03/18at 10:39; Start 03/03/18 at 08:00 Magnesium Sulfate 2 gm/Sodium Chloride 100 ml @ 50 mls/hr UNSCH PRN IV For Magnesium 1.2 - 1.6 mg/dL; Start 03/03/18 at 08:00 Sodium Chloride (Sodium Chloride) 1 gm TID PO Last administered on 03/06/18at 12 :40; Start 03/04/18 at 09:00 Tolvaptan (Samsca) 15 mg ONCE ONCE PO Last administered on 03/03/18at 20:48; Start 03/03/18 at 20:00; Stop 03/03/18 at 20:01; Status DC Cefazolin Sodium/ Dextrose 50 ml @ 100 mls/hr Q8H IV Last administered on 03/06at 12:40; Start 03/06/18 at 12:00 A/P Assessment and Plan Assessment and Plan Assessment 42 year old female: Resp Insuff Encephalopathy secondary to substance abuse Hyponatremia Polysubstance abuse positive for amphetamines, cocaine, benzodiazepine, opioids Fever with suspected sepsis Left LLE with cellulitis, abscess and gangrene. s/p LEFT BKA. History of IV drug use Sinus Tachycardia Uncontrolled hypertension Hypoalbuminemia Malnutrition Postoperative pain Seizures Hepatitis C Plan: Neuro: Monitor neuro status, awake and alert UDS: Cocaine, Amphetamines, Opiates, Benzos Ringling every 4 hours as needed for pain control status post LEFT BKA Ringling 10-325 q 6hr on Kera, Neuro is following. 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 Coreg 3.125mg BID, On Lopressor/Labetalol IV PRN 02/22 2-D echo EF 25-30% Pulmonary: Oxygen keep sats >92% Bronchodilators, CXR 03/01: No acute disease GI/liver: On PO diet per speech Elevated AST, US liver: Gallbladder sludge. Medical renal disease Hepatitis profile reactive Hep C IgG ab Hepatitis C Renal/: Monitor renal function, I/O's, electrolytes replacement per protocol. TSH: 1.58. Renal is following- on salt tabs 1gram TID serum osm: 250, urine osm: 627 likely SIADH. Na level 134 today ID: ID following, on Cefazolin and Levaquin Status post left BKA Wound care consulted for lower extremity leg wounds. Wound culture-staph aureus Sputum culture-Klebsiella C-diff PCR negative on 03/01 Endocrine: SSI for glycemic control if needed. Heme: Follow CBC. Transfuse for hemoglobin less than 8 Msk: Vascular surgery following , S/P left BKA. Prophylaxis:SQ Heparin, SCDs for DVT prophylaxis , on Pepcid for GI prophylaxis Lines: Right sided CVP, d/c central line Reconsult wound care Discharge Planning Pending improvement may require a right below the knee amputation Ata Peters DO Mar 06, 2018 15:05
[2018-03-07] VITALS: BP 145/98; PULSE 82; RESP 16; TEMP 97.5; O2SAT 100
[2018-03-07] MEDS: ACETAMINOPHEN/HYDROcodone 325 MG/10 MG TAB PO PRN ×4 (03:37→21:57)
[2018-03-07] MEDS: ceFAZolin 2 GM/DEX PREMIX 50 ML IV SCH ×3 (03:37→21:57)
[2018-03-07] MEDS: INSULIN NovoLIN REGULAR SUPPLEMENTAL SCALE SQ SCH ×4 (03:38→22:00)
[2018-03-07] MEDS: HEPARIN SODIUM - SQ 10,000 UNITS/ML VIAL SQ SCH ×2 (03:38→16:00)
[2018-03-07] MEDS: CHLORHEXIDINE GLUCONATE 2 % 1 PACK (2 CLOTHS) TOP SCH (03:38)
[2018-03-07] MEDS: LORazepam 2 MG/ML VIAL IV PUSH PRN ×5 (04:04→21:57)
--- NOTE | 2018-03-07 07:21 | PD.WCN.NOT ---
Wound Consult Description: Dr Peters consulted wound care for wound management of right lower extremity. Patient right lower extremity was seen by Podiatry. Orders written on by Dr Ramos Communicated with: REZA Richardson Recommendation: Please refer to Dr Ramos orders for wound care to right lower extremity. Follow orders from Dr Holder regarding left stump. Additional Information: Patient not seen for right lower extremity. Patient being followed by Podiatry and Surgery. Please refer to their orders for wound care. Laura Simon [facility] Mar 07, 2018 07:21
[2018-03-07 07:49] LABS: AUTOMATED NEUTROPHIL # 2.4 TH/MM3 (1.8-7.7); BASOPHIL # 0.1 TH/MM3 (0-0.2); BASOPHIL % 1.2 % (0.0-2.0); EOSINOPHIL # 0.1 TH/MM3 (0-0.4); EOSINOPHIL % 2.2 % (0.0-4.0); HEMATOCRIT 32.9 % (35.0-46.0); HEMOGLOBIN 10.9 GM/DL (11.6-15.3); LYMPH % 40.2 % (9.0-44.0); LYMPHOCYTE # 2.1 TH/MM3 (1.0-4.8); MEAN CELL VOLUME 79.2 FL (80.0-100.0); MEAN CORPUSCULAR HEMOGLOBIN 26.3 PG (27.0-34.0); MEAN CORPUSCULAR HGB CONC 33.2 % (32.0-36.0); MEAN PLATELET VOLUME 8.1 FL (7.0-11.0); MONO % 9.1 % (0.0-8.0); MONOCYTE # 0.5 TH/MM3 (0-0.9); NEUT % 47.3 % (16.0-70.0); PLATELET COUNT 375 TH/MM3 (150-450); RED BLOOD COUNT 4.15 MIL/MM3 (4.00-5.30); RED CELL DISTRIBUTION WIDTH 19.1 % (11.6-17.2); WHITE BLOOD COUNT 5.2 TH/MM3 (4.0-11.0)
[2018-03-07 08:00] VITALS: BP 140/89; PULSE 92; RESP 20; TEMP 97.8; O2SAT 99
[2018-03-07] MEDS: CHLORHEXIDINE 0.12% (ORAL KIT) 15 ML CUP MT SCH ×2 (08:00→20:00)
[2018-03-07 08:19] LABS: ALBUMIN 2.7 GM/DL (3.4-5.0); AST (GOT) 24 U/L (15-37); BICARBONATE 22.7 MEQ/L (21.0-32.0); BLOOD UREA NITROGEN 9 MG/DL (7-18); CHLORIDE 98 MEQ/L (98-107); CREATININE 0.48 MG/DL (0.50-1.00); GLOMERULAR FILTRATION RATE 140 ML/MIN (>89); GLUCOSE,RANDOM 89 MG/DL (74-106); MAGNESIUM 1.6 MG/DL (1.5-2.5); SODIUM (NA) 130 MEQ/L (136-145)
[2018-03-07 08:28] LABS: ALKALINE PHOSPHATASE 102 U/L (45-117); ALT (GPT) 17 U/L (10-53); FREE T4 4.87 NG/DL (0.76-1.46); PHOSPHORUS 3.5 MG/DL (2.5-4.9); TOTAL BILIRUBIN ADULT 0.2 MG/DL (0.2-1.0)
[2018-03-07] MEDS: DOCUSATE SODIUM 50 MG/SENNA 8.6 MG TAB PO SCH ×2 (08:37→21:57)
[2018-03-07] MEDS: LISINOPRIL 5 MG TAB PO SCH (08:38)
[2018-03-07] MEDS: CARVEDILOL 3.125 MG TAB PO SCH ×2 (08:38→21:57)
[2018-03-07] MEDS: SODIUM CHLORIDE 1 GRAM TAB PO SCH ×4 (08:38→21:57)
[2018-03-07] MEDS: SODIUM CHLORIDE 0.9% FLUSH 10 ML FLUSH IV FLUSH SCH ×2 (08:39→21:58)
[2018-03-07] MEDS: FAMOTIDINE 40 MG/5 ML LIQ 50 ML BTL NG SCH ×2 (08:39→21:58)
[2018-03-07] MEDS: COLLAGENASE OINT 30 GM TUBE TOPICAL SCH (08:39)
[2018-03-07] MEDS: levETIRAcetam 500 MG TAB PO SCH ×2 (10:52→21:57)
[2018-03-07] MEDS: LEVOFLOXACIN 500 MG TAB PO SCH (10:52)
[2018-03-07 12:00] VITALS: BP 127/87; PULSE 99; RESP 19; TEMP 97.4; O2SAT 99
--- NOTE | 2018-03-07 12:37 | HHI.PR ---
Subjective Remarks F/u cardiomyopathy. Denies shortness of breath. She wants to go home. She is on restraints to try to get out of bed last night and fell. Seen with mother discussed with nursing Objective Vitals Vital Signs Date Time Temp Pulse Resp B/P (MAP) Pulse Ox O2 Delivery O2 Flow Rate FiO2 03/07/18 08:00 97.8 92 20 140/89 (106) 99 03/07/18 00:00 97.5 82 16 145/98 (114) 100 03/06/18 22:00 97.9 92 16 150/89 (109) 100 03/06/18 21:00 97.5 82 16 145/92 (109) 100 03/06/18 20:00 97.8 89 16 152/102 (119) 100 03/06/18 18:00 97.8 74 19 128/93 (105) 100 03/06/18 17:47 22 03/06/18 16:00 98.0 79 22 125/83 (97) 94 03/06/18 16:00 79 03/06/18 14:00 89 I/O 03/06/18 03/06/18 03/06/18 03/07/18 03/07/18 03/07/18 07:00 15:00 23:00 07:00 15:00 23:00 Intake Total 325 ml 155 ml 0 ml 120 ml Output Total 550 ml Balance -225 ml 155 ml 0 ml 120 ml Intake Oral 100 ml 0 ml 120 ml IV Total 225 ml 155 ml Output Urine Total 550 ml # Voids 1 # Bowel Movements 2 2 Result Diagram: 03/07/18 0715 03/07/18 0715 Imaging Last Impressions Head/Brain Mag Res Venography 03/02/18 0000 Signed Impressions: Service Date/Time: Friday, March 02, 2018 08:36 - CONCLUSION: No evidence for cerebral venous thrombosis. Ata Friedman MD FACR Chest X-Ray 03/01/18 0000 Signed Impressions: Service Date/Time: Thursday, March 01, 2018 11:16 - CONCLUSION: No acute disease. Francisco Figueroa MD Brain MRI 03/01/18 0000 Signed Impressions: Service Date/Time: Thursday, March 01, 2018 15:27 - CONCLUSION: 1. 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 MRV examination may be performed if there is significant persistent clinical concern regarding dural venous sinus thrombosis. 2. Otherwise, unremarkable MRI examination of the brain. Lenny Dee MD Liver Ultrasound 02/28/18 0000 Signed Impressions: Service Date/Time: Wednesday, February 28, 2018 09:14 - CONCLUSION: 1. Gallbladder sludge 2. Medical renal disease Floyd Villatoro MD Head CT 02/28/18 0000 Signed Impressions: Service Date/Time: Wednesday, February 28, 2018 12:31 - CONCLUSION: 1. No intracranial abnormalities seen. 2. Air within the soft tissues adjacent to the posterior and lateral aspects of the right maxillary sinus. Francisco Figueroa MD Abdomen X-Ray 02/22/18 0000 Signed Impressions: Service Date/Time: Thursday, February 22, 2018 17:47 - CONCLUSION: 1. NG tip in stomach. Kevin Wells MD Lower Extremity CT 02/21/18 0000 Signed Impressions: Service Date/Time: Wednesday, February 21, 2018 17:58 - CONCLUSION: 1. Subcutaneous edema in the right lower extremity as above. No discrete abscess. No air locules to suggest gas gangrene. Kevin Wells MD Tibia/Fibula X-Ray 02/20/18 0000 Signed Impressions: Service Date/Time: Tuesday, February 20, 2018 11:01 - CONCLUSION: Soft tissue swelling and irregularity with no radiopaque foreign body. Balaji Zimmerman MD Foot X-Ray 02/20/18 0000 Signed Impressions: Service Date/Time: Tuesday, February 20, 2018 11:00 - CONCLUSION: Soft tissue swelling with no radiopaque foreign body or underlying bony abnormality. Balaji Zimmerman MD Objective Remarks GENERAL: Awake alert and oriented talkative and cooperative appears very sickly pale and cachectic SKIN: Warm and dry. Left below the knee amputation dressed right lower extremity with multiple large wounds involving the [place] downward CARDIOVASCULAR: Regular rate and rhythm. S1-S2 no S3 or S4 RESPIRATORY: No accessory muscle use. Clear to auscultation. Breath sounds equal bilaterally. GASTROINTESTINAL: Abdomen soft, non-tender, nondistended. MUSCULOSKELETAL: Extremities without clubbing, cyanosis, or edema. No obvious deformities. Left below the knee amputation dressed. Lower extremity with multiple large wounds involving the [place] downward NEUROLOGICAL: Awake and alert. No obvious cranial nerve deficits. Motor grossly within normal limits. 4 out of 5 muscle strength in the arms and legs. Normal speech. Procedures 02/22 left BKA 02/26 revision and wound closure left BKA and right heel debridement A/P Problem List: (1) Cardiomyopathy ICD Code: I42.9 - Cardiomyopathy, unspecified Assessment and Plan 42 year old female: Resp failure status post vent. Resolved Encephalopathy secondary to substance abuse Hyponatremia Polysubstance abuse positive for amphetamines, cocaine, benzodiazepine, opioids Fever with suspected sepsis Left LLE with cellulitis, abscess and gangrene s/p LEFT BKA. Right foot heel with cellulitis and gangrene Bilateral Hand cellulitis with blisters/wounds. Kleb pneumo UTI. History of IV drug use Sinus Tachycardia Uncontrolled hypertension Cardiomyopathy Hypoalbuminemia Malnutrition Postoperative pain Seizures Hepatitis C Cryoglobulinemia Vasculitis : AMIE positive. Acute resp failure on vent. Plan: Neuro: Monitor neuro status, awake and alert UDS: Cocaine, Amphetamines, Opiates, Benzos [place] every 4 hours as needed for pain control status post LEFT BKA [place] 10-325 q 6hr on Kera, Neuro is following. 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 Coreg 3.125mg BID, On Lopressor/ Labetalol IV PRN 02/22 2-D echo EF 25-30% Pulmonary: Oxygen keep sats >92% Bronchodilators, CXR 03/01: No acute disease GI/liver: On PO diet per speech Elevated AST, US liver: Gallbladder sludge. Medical renal disease Hepatitis profile reactive Hep C IgG ab Hepatitis C Renal/: Monitor renal function, I/O's, electrolytes replacement per protocol. TSH: 1.58. Renal is following- on salt tabs 1gram TID serum osm: 250, urine osm: 627 likely SIADH. Na level 134 today ID: ID following, on Cefazolin and po Levaquin Status post left BKA. May require more surgery involving the right lower extremity Wound care for lower extremity leg wounds. Wound culture-staph aureus Sputum culture-Klebsiella C-diff PCR negative on 03/01 Endocrine: SSI for glycemic control if needed. Heme: Follow CBC. Transfuse for hemoglobin less than 8 Msk: Vascular surgery following , S/P left BKA. Prophylaxis:SQ Heparin, SCDs for DVT prophylaxis , on Pepcid for GI prophylaxis Discharge Planning not ready for discharge on IV antibiotic. May also need more surgery involving the right lower extremity Jhonny Wu MD Mar 07, 2018 12:37
--- NOTE | 2018-03-07 14:36 | PD.CAR.PN ---
CVT Progress Note Subjective/Hospital Course: 42-year-old female intubated ventilated and sedated Patient is apparently a IV drug abuser was brought in hypotensive and septic to our institution is currently under care Podiatry was consulted for evaluation of the feet and spoke with Dr. Ramos about it On exam patient has palpable bilateral femoral pulses and palpable popliteal pulses on the right side posterior tibial is palpable dorsalis pedis is by Doppler patient has multiple ulcers and necrotic areas over the right foot. On the left foot I can Doppler posterior tibial pulse and dorsalis pedis pulse but the entire foot is at this point involved in gangrene which has started from the skin down and that this time the entire foot is essentially black Fluid covered bulla and gangrenous soft tissue is going all the way down to the tendons and gangrene involves entire foot from the metatarsals, over the metatarsals to the tarsals and to the ankle and then over to the heel. Toes are spared. This is a result of multiple injections in this area and gangrenous spread. This patient clearly has inflow vessels which are open but she is perfusing a devitalized foot She needs immediate amputation patient will undergo two-stage amputation in the guillotine fashion with secondary closure in a few days. I fully agree with Dr. 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 At the same time I will debride few of these necrotic areas It should be noted that patient's blood supply to the foot was severely compromised and that vessels below the level of the knee look really diseased fibrotic and the only true viable vessel is anterior tibial 02/24/2018 Patient slightly improved Hemodynamically stable We will take him tomorrow for revision resection and closure of the left BKA stump 02/25/2018 Patient with the guillotine amputation of left leg We will take for closure tomorrow for closure of the BKA stump and debridement Today, due to scheduling conflicts and emergencies surgery had to be postponed. 02/27/2018 Status post second stage left below-knee amputation with closure and advancement of skin flap Dressing clean and dry Discussed case with Dr. Ramos and is more and more likely that patient will require amputation on the right side as well 02/28/2018 Status post BKA closure. Dressing intact clean We will keep dressing on until tomorrow and then remove Patient might need right below-knee amputation in the future, depending on how the debrided areas heal 03/03/2018 Daily dressing change Stump is clean and dry The plastic advancement flap is nicely perfused on the bottom of the stump Unfortunately patient is bending her leg and hitting against the bed so I have instructed him to try to have her move the leg and keep it more straight I would avoid putting a posterior splint on her considering the quality of her skin I discussed this at length with the patient's mother and there is still significant chance the patient will need a right below-knee amputation and if left below-knee develops decubitus ulcer than patient will need an above-knee amputation on the left side Right now everything looks okay continue care will see how it works out 03/04/2018 Stump is clean and dry Patient is not following commands and keeps hitting the stump against the bed which of course is not going to end up well if skin gets damaged. Right foot debridement areas clean but I do not believe patient will be able to heal this due to noncompliance, malnutrition and severe tissue loss. Nothing to add to care at this time we will watch carefully the stump and right leg for any changes 03/07/2018 Stump clean and dry again patient is continuously hitting and pushing stump into the mattress and sooner later this is going to go necrotic explained to patient she needs to straighten out her leg and work her knee But she just nods and then goes back to the lateral position she was in before I am afraid the patient will end up eventually bilateral above-knee amputations I discussed this with mother and she understands Nothing to add to care at this time Objective: Vital Signs Date Time Temp Pulse Resp B/P (MAP) Pulse Ox O2 Delivery O2 Flow Rate FiO2 03/07/18 12:00 97.4 99 19 127/87 (100) 99 03/07/18 08:00 97.8 92 20 140/89 (106) 99 03/07/18 00:00 97.5 82 16 145/98 (114) 100 03/06/18 22:00 97.9 92 16 150/89 (109) 100 03/06/18 21:00 97.5 82 16 145/92 (109) 100 03/06/18 20:00 97.8 89 16 152/102 (119) 100 03/06/18 18:00 97.8 74 19 128/93 (105) 100 03/06/18 17:47 22 03/06/18 16:00 98.0 79 22 125/83 (97) 94 03/06/18 16:00 79 Labs: Laboratory Tests Test 03/07/18 07:15 White Blood Count 5.2 TH/MM3 (4.0-11.0) Red Blood Count 4.15 MIL/MM3 (4.00-5.30) Hemoglobin 10.9 GM/DL (11.6-15.3) Hematocrit 32.9 % (35.0-46.0) Mean Corpuscular Volume 79.2 FL (80.0-100.0) Mean Corpuscular Hemoglobin 26.3 PG (27.0-34.0) Mean Corpuscular Hemoglobin Concent 33.2 % (32.0-36.0) Red Cell Distribution Width 19.1 % (11.6-17.2) Platelet Count 375 TH/MM3 (150-450) Mean Platelet Volume 8.1 FL (7.0-11.0) Neutrophils (%) (Auto) 47.3 % (16.0-70.0) Lymphocytes (%) (Auto) 40.2 % (9.0-44.0) Monocytes (%) (Auto) 9.1 % (0.0-8.0) Eosinophils (%) (Auto) 2.2 % (0.0-4.0) Basophils (%) (Auto) 1.2 % (0.0-2.0) Neutrophils # (Auto) 2.4 TH/MM3 (1.8-7.7) Lymphocytes # (Auto) 2.1 TH/MM3 (1.0-4.8) Monocytes # (Auto) 0.5 TH/MM3 (0-0.9) Eosinophils # (Auto) 0.1 TH/MM3 (0-0.4) Basophils # (Auto) 0.1 TH/MM3 (0-0.2) CBC Comment DIFF FINAL Differential Comment Blood Urea Nitrogen 9 MG/DL (7-18) Creatinine 0.48 MG/DL (0.50-1.00) Random Glucose 89 MG/DL (74-106) Total Protein 7.0 GM/DL (6.4-8.2) Albumin 2.7 GM/DL (3.4-5.0) Calcium Level 9.0 MG/DL (8.5-10.1) Phosphorus Level 3.5 MG/DL (2.5-4.9) Magnesium Level 1.6 MG/DL (1.5-2.5) Alkaline Phosphatase 102 U/L (45-117) Aspartate Amino Transf (AST/SGOT) 24 U/L (15-37) Alanine Aminotransferase (ALT/SGPT) 17 U/L (10-53) Total Bilirubin 0.2 MG/DL (0.2-1.0) Sodium Level 130 MEQ/L (136-145) Potassium Level 4.1 MEQ/L (3.5-5.1) Chloride Level 98 MEQ/L (98-107) Carbon Dioxide Level 22.7 MEQ/L (21.0-32.0) Anion Gap 9 MEQ/L (5-15) Estimat Glomerular Filtration Rate 140 ML/MIN (>89) Free Thyroxine 4.87 NG/DL (0.76-1.46) Thyroid Stimulating Hormone 3rd Gen 3.410 uIU/ML (0.358-3.740) Result Diagram: 03/07/18 0715 03/07/18 0715 David Mays MD Mar 07, 2018 14:36
[2018-03-07 15:18] LABS: HEMOGLOBIN A1C 4.9 % (4.3-6.0)
[2018-03-07 16:00] VITALS: BP 124/81; PULSE 102; RESP 19; TEMP 99.3; O2SAT 100
--- NOTE | 2018-03-07 18:14 | HHI.NPPN ---
Subjective History of Present Illness 42 year old with IVDA , cellulitis low Na Review of Systems General Constitutional: Fatigue Objective Data Data 03/07/18 03/08/18 19:00 07:00 Intake Total 120 ml Balance 120 ml Intake Oral 120 ml Vital Signs Date Time Temp Pulse Resp B/P (MAP) Pulse Ox O2 Delivery O2 Flow Rate FiO2 03/07/18 12:00 97.4 99 19 127/87 (100) 99 03/07/18 08:00 97.8 92 20 140/89 (106) 99 03/07/18 00:00 97.5 82 16 145/98 (114) 100 03/06/18 22:00 97.9 92 16 150/89 (109) 100 03/06/18 21:00 97.5 82 16 145/92 (109) 100 03/06/18 20:00 97.8 89 16 152/102 (119) 100 -: 03/07/18 0715 03/07/18 0715 Physical Exam General Appearance: Malnourished Neck Neck Exam: Neck Supple Pulmonary Resp Exam: Decreased Bases Cardiology CV Exam: Regular Gastrointestinal/Abdomen GI Exam: Soft, Non-Tender, Bowel Sounds Present Extremeties Extremities Exam: No Edema (L BKA) Assessment/Plan Problem List: (1) Hyponatremia ICD Codes: E87.1 - Hypo-osmolality and hyponatremia Plan: Hyponatremia has improved. Needs fluid restriction. Salt tablet stable Na 130 stable may use loop diuretic as needed (2) Polysubstance abuse ICD Codes: F19.10 - Other psychoactive substance abuse, uncomplicated Status: Acute Plan: Patient was counseled against (3) Bilateral leg ulcer ICD Codes: L97.919 - Non-pressure chronic ulcer of unspecified part of right lower leg with unspecified severity; L97.929 - Non-pressure chronic ulcer of unspecified part of left lower leg with unspecified severity Status: Acute Plan: Left BKA (4) Hypokalemia ICD Codes: E87.6 - Hypokalemia Plan: Continue to replace Problem Qualifiers (1) Bilateral leg ulcer: Qualified Codes: L97.919 - Non-pressure chronic ulcer of unspecified part of right lower leg with unspecified severity; L97.929 - Non-pressure chronic ulcer of unspecified part of left lower leg with unspecified severity Lebron Hill MD Mar 07, 2018 18:14
[2018-03-07 20:00] VITALS: BP 132/81; PULSE 125; RESP 20; TEMP 97.8; O2SAT 99
[2018-03-08] VITALS: BP 129/93; PULSE 101; RESP 20; TEMP 97.8; O2SAT 98
[2018-03-08] MEDS: LORazepam 2 MG/ML VIAL IV PUSH PRN ×2 (02:57→09:38)
[2018-03-08] MEDS: CHLORHEXIDINE GLUCONATE 2 % 1 PACK (2 CLOTHS) TOP SCH (05:22)
[2018-03-08] MEDS: INSULIN NovoLIN REGULAR SUPPLEMENTAL SCALE SQ SCH ×4 (05:22→21:28)
[2018-03-08] MEDS: ceFAZolin 2 GM/DEX PREMIX 50 ML IV SCH ×3 (05:22→21:23)
[2018-03-08] MEDS: HEPARIN SODIUM - SQ 10,000 UNITS/ML VIAL SQ SCH ×2 (05:24→16:00)
[2018-03-08] MEDS: ACETAMINOPHEN/HYDROcodone 325 MG/10 MG TAB PO PRN ×3 (05:26→21:23)
[2018-03-08 08:00] VITALS: BP 113/67; PULSE 115; RESP 19; TEMP 98; O2SAT 99
[2018-03-08] MEDS: CHLORHEXIDINE 0.12% (ORAL KIT) 15 ML CUP MT SCH ×2 (08:00→20:00)
[2018-03-08] MEDS: DOCUSATE SODIUM 50 MG/SENNA 8.6 MG TAB PO SCH ×2 (08:09→21:00)
[2018-03-08] MEDS: SODIUM CHLORIDE 1 GRAM TAB PO SCH ×2 (08:11→21:23)
[2018-03-08] MEDS: COLLAGENASE OINT 30 GM TUBE TOPICAL SCH (08:11)
[2018-03-08] MEDS: CARVEDILOL 3.125 MG TAB PO SCH ×2 (08:11→21:23)
[2018-03-08] MEDS: levETIRAcetam 500 MG TAB PO SCH ×2 (08:11→21:23)
[2018-03-08] MEDS: LISINOPRIL 10 MG TAB PO SCH (08:11)
[2018-03-08] MEDS: FAMOTIDINE 40 MG/5 ML LIQ 50 ML BTL NG SCH ×2 (08:13→22:29)
[2018-03-08] MEDS: SODIUM CHLORIDE 0.9% FLUSH 10 ML FLUSH IV FLUSH SCH ×2 (08:21→21:24)
--- NOTE | 2018-03-08 09:33 | HHI.IDPN ---
Subjective Subjective Remarks ID COVERAGE is a 42 y/o CF with PMHx significant for recurrent cellulitis, Hepatitis C treatment naive, IV drug abuse, reported history of Crohn's disease , COPD. Patient has had multiple hospitalizations most recently in Oct 2017 and 2017 for recurrent bilateral LE cellulitis. 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 Cryoglobulins were detected in low amounts and AMIE was positive. Patient received IV antibiotics and wound care and was discharged to follow up with in wound care clinic. Patient was discharged to infusion clinic to receive dose of Dalbavancin on 01/07 at that time her wounds her superficial fewer and not as many with less evidence of infection. To complicate matters patient does not have a home and her last year. She has been treated with steroids for her vasculitis related non infected ulcers in the past. The rest of the history was obtained by review of medical records. With this background patient was brought in by ambulance from a temporary correction/living facility where she is staying for evaluation of bilateral leg pain and altered mental status. One of the other residents became concerned about the patient today because of the way she was acting. They noticed several sores on her bilateral lower extremities. The patient admitted to others that she abused drugs a day prior to admission. Due to worsening mentation patient was intubated for airway protection. ICU course: Patient has high grade fevers and foot appeared to be worsening due to concern for Necrotizing fascitis a Surgery consult was placed. Podiatry evaluated patient and a stat Vascular consult to has been placed. Gen Surgery evaluated patient with me. The general opinion seems to be non salvageable left leg but await Vascular opinion. Currently not on pressors. Remains sedated. UO good. Skin lesions noted on bilateral hands on dorsal aspect with blisters. Also tip of nose appears necrotic with surrounding erythema. ID consulted for evaluation of sepsis, Mment of LLE wet septic gangrene, Right foot heel gangrene and bilateral LE cellulitis. Notes reviewed Patient is out of ICU Up in chair Temps ok Voding ok Frequent BM C diff negative WBC normal 02/27 had further revision of Left BKA and Right foot heel I&D in OR. Extubated 02/27. Antibiotics Ancef IV Levaquin Current Medications Medications (Trade) Dose Ordered Sig/[place] Route Start Time Stop Time Status Last Admin (NS Flush) 2 ml UNSCH PRN IV FLUSH 02/20/18 15:00 (NS Flush) 2 ml BID IV FLUSH 02/20/18 21:00 03/08/18 08:21 (Tylenol) 650 mg Q6H PRN PO 02/20/18 15:00 03/04/18 04:42 (Ativan Inj) 2 mg Q4H PRN IV PUSH 02/20/18 15:00 03/08/18 02:57 (Zofran Inj) 4 mg Q6H PRN IV PUSH 02/20/18 15:00 02/27/18 20:06 (Duoneb Neb) 1 ampule Q4HR NEB PRN INH 02/20/18 15:00 02/27/18 03:21 (Heparin Inj) 5,000 units Q12H SQ 02/20/18 16:00 03/08/18 05:24 Miscellaneous Information 1 Q361D XX 02/20/18 15:00 (Chlorhexidine 2% Cloth) Taper DAILY@04 TOP 02/21/18 04:00 02/17/19 03:59 03/04/18 04:00 (Chlorhexidine 2% Cloth) 3 pack UNSCH PRN TOP 02/20/18 15:00 (Damari-Colace) 1 tab BID PO 02/21/18 09:00 03/07/18 21:57 (Milk Of Magnesia Liq) 30 ml Q12H PRN PO 02/20/18 15:00 (Senokot) 17.2 mg Q12H PRN PO 02/20/18 15:00 (Dulcolax Supp) 10 mg DAILY PRN RECTAL 02/20/18 15:00 (Lactulose Liq) 30 ml DAILY PRN PO 02/20/18 15:00 02/25/18 20:14 (Lopressor Inj) 5 mg Q6H PRN IV PUSH 02/20/18 16:45 03/02/18 04:12 (Trandate Inj) 10 mg Q4H PRN IV PUSH 02/20/18 16:45 03/02/18 06:21 (Peridex 0.12% Liq) 15 ml BID@08,20 MT 02/20/18 20:00 03/03/18 20:00 (Pepcid Liq) 20 mg BID NG 02/22/18 21:00 03/07/18 21:58 (Tears Naturale Opth Soln) 1 drop Q4H PRN EACH EYE 02/22/18 13:00 02/23/18 07:47 ([place] 10-325 Mg) 1 tab Q6H PRN PO 02/25/18 18:00 03/08/18 05:26 (Levaquin) 500 mg DAILY@1100 PO 02/28/18 11:00 03/07/18 10:52 (D50w (Vial) Inj) 50 ml UNSCH PRN IV PUSH 02/28/18 08:45 (Glucagon Inj) 1 mg UNSCH PRN OTHER 02/28/18 08:45 (NovoLIN R SUPPLEMENTAL SCALE) 1 Q6H SQ 02/28/18 10:00 (Coreg) 3.125 mg Q12HR PO 03/01/18 09:00 03/08/18 08:11 (Santyl Oint) 1 applic DAILY TOPICAL 03/02/18 17:30 03/08/18 08:11 Cefazolin Sodium/ Dextrose 50 ml @ 100 mls/hr Q8H IV 03/06/18 12:00 03/08/18 05:22 (Prinivil) 10 mg DAILY PO 03/08/18 09:00 03/08/18 08:11 (Keppra) 500 mg Q12HR PO 03/07/18 11:00 03/08/18 08:11 (Sodium Chloride) 1 gm BID PO 03/07/18 21:00 03/08/18 08:11 Lines PIV - Line sites with no e.o infection Past Medical History Past Medical History Crohn's disease per history Hepatitis C treatment melissa Recurrent cellulitis Past Surgical History Appendectomy Hysterectomy ? Some bowel surgery for Crohn's Allergies: Coded Allergies: codeine (Verified Allergy, Severe, 02/20/18) ketorolac (Verified Allergy, Severe, 02/20/18) penicillin G (Verified Allergy, Intermediate, Rash, 02/20/18) Objective . Vital Signs Date Time Temp Pulse Resp B/P (MAP) Pulse Ox O2 Delivery O2 Flow Rate FiO2 03/08/18 00:00 97.8 101 20 129/93 (105) 98 03/07/18 20:00 97.8 125 20 132/81 (98) 99 03/07/18 16:00 99.3 102 19 124/81 (95) 100 03/07/18 12:00 97.4 99 19 127/87 (100) 99 . Laboratory Tests Test 03/07/18 07:15 White Blood Count 5.2 TH/MM3 Red Blood Count 4.15 MIL/MM3 Hemoglobin 10.9 GM/DL Hematocrit 32.9 % Mean Corpuscular Volume 79.2 FL Mean Corpuscular Hemoglobin 26.3 PG Mean Corpuscular Hemoglobin Concent 33.2 % Red Cell Distribution Width 19.1 % Platelet Count 375 TH/MM3 Mean Platelet Volume 8.1 FL Neutrophils (%) (Auto) 47.3 % Lymphocytes (%) (Auto) 40.2 % Monocytes (%) (Auto) 9.1 % Eosinophils (%) (Auto) 2.2 % Basophils (%) (Auto) 1.2 % Neutrophils # (Auto) 2.4 TH/MM3 Lymphocytes # (Auto) 2.1 TH/MM3 Monocytes # (Auto) 0.5 TH/MM3 Eosinophils # (Auto) 0.1 TH/MM3 Basophils # (Auto) 0.1 TH/MM3 CBC Comment DIFF FINAL Differential Comment Laboratory Tests Test 03/07/18 07:15 Blood Urea Nitrogen 9 MG/DL Creatinine 0.48 MG/DL Random Glucose 89 MG/DL Total Protein 7.0 GM/DL Albumin 2.7 GM/DL Calcium Level 9.0 MG/DL Phosphorus Level 3.5 MG/DL Magnesium Level 1.6 MG/DL Alkaline Phosphatase 102 U/L Aspartate Amino Transf (AST/SGOT) 24 U/L Alanine Aminotransferase (ALT/SGPT) 17 U/L Total Bilirubin 0.2 MG/DL Sodium Level 130 MEQ/L Potassium Level 4.1 MEQ/L Chloride Level 98 MEQ/L Carbon Dioxide Level 22.7 MEQ/L Anion Gap 9 MEQ/L Estimat Glomerular Filtration Rate 140 ML/MIN Hemoglobin A1c 4.9 % Free Thyroxine 4.87 NG/DL Thyroid Stimulating Hormone 3rd Gen 3.410 uIU/ML Imaging Last Impressions Chest X-Ray 02/23/18 0600 Signed Impressions: Service Date/Time: Friday, February 23, 2018 02:40 - CONCLUSION: Satisfactory chest appearance Francisco Shabazz MD Abdomen X-Ray 02/22/18 0000 Signed Impressions: Service Date/Time: Thursday, February 22, 2018 17:47 - CONCLUSION: 1. NG tip in stomach. Kevin Wells MD Lower Extremity CT 02/21/18 0000 Signed Impressions: Service Date/Time: Wednesday, February 21, 2018 17:58 - CONCLUSION: 1. Subcutaneous edema in the right lower extremity as above. No discrete abscess. No air locules to suggest gas gangrene. Kevin Wells MD Tibia/Fibula X-Ray 02/20/18 0000 Signed Impressions: Service Date/Time: Tuesday, February 20, 2018 11:01 - CONCLUSION: Soft tissue swelling and irregularity with no radiopaque foreign body. Balaji Zimmerman MD Head CT 02/20/18 0000 Signed Impressions: Service Date/Time: Tuesday, February 20, 2018 11:49 - CONCLUSION: Suboptimal exam secondary to streak and motion artifact with no evidence of hemorrhage or mass effect. Balaji Zimmerman MD Foot X-Ray 02/20/18 0000 Signed Impressions: Service Date/Time: Tuesday, February 20, 2018 11:00 - CONCLUSION: Soft tissue swelling with no radiopaque foreign body or underlying bony abnormality. Balaji Zimmerman MD Physical Exam GENERAL: Thin female, looks older than stated age, NAD SKIN: Cool and dry. Multiple wounds both hands, tip of nose and R foot HEAD: Atraumatic. Normocephalic. No temporal or scalp tenderness. EYES: Pupils equal round and reactive. No scleral icterus. No injection or drainage. ENT: No nasal discharge, has lesion tip of nose NECK: Trachea midline. Supple, nontender, no meningeal signs. CARDIOVASCULAR: Regular rate and rhythm without murmurs, gallops, or rubs. RESPIRATORY: Clear to auscultation. Breath sounds equal bilaterally. No wheezes , rales, or rhonchi. GASTROINTESTINAL: Abdomen soft, non-tender, nondistended. MUSCULOSKELETAL: Dry dressing Lt BKA stump. Wounds dry R foot and ankle area with eschar. Eschars both hand, nose and L forehead, all dry NEUROLOGICAL: Grossly non-focal Psych: Calm and cooperative IV line sites with no e.o infection. Assessment & Plan Remarks Sepsis present on admission, better MSSA foot infection Left leg and foot with cellulitis, abscess and gangrene. s/p BKA. - better Right foot heel with cellulitis and gangrene - better Bilateral Hand cellulitis with blisters/wounds. - better Kleb pneumo UTI. Bilateral LE cellulitis with blisters. Clinically looks less likely to be Necrotizing fascitis and no gas on imaging. Does not appear to be spreading beyond margins demarcated with marker. Hepatitis C Cryoglobulinemia Vasculitis : AMIE positive. IVDA Acute resp failure on vent. Penicillin allergy: rash. has tolerated Cephalosporins in past. Recs: Continue Ancef IV Continue Levaquin oral Wounds seem stable, all dry Monitor progress Mireille Burris MD Mar 08, 2018 09:33
[2018-03-08] MEDS: LEVOFLOXACIN 500 MG TAB PO SCH (09:39)
[2018-03-08 12:00] VITALS: BP 131/96; PULSE 102; RESP 19; TEMP 98.6; O2SAT 100
--- NOTE | 2018-03-08 12:40 | HHI.PR ---
Subjective Remarks F/u sepsis. Caught by RN about to shoot drug allegedly brought in by friend. Will not allow visitors except mother. Objective Vitals Vital Signs Date Time Temp Pulse Resp B/P (MAP) Pulse Ox O2 Delivery O2 Flow Rate FiO2 03/08/18 00:00 97.8 101 20 129/93 (105) 98 03/07/18 20:00 97.8 125 20 132/81 (98) 99 03/07/18 16:00 99.3 102 19 124/81 (95) 100 I/O 03/07/18 03/07/18 03/07/18 03/08/18 03/08/18 03/08/18 07:00 15:00 23:00 07:00 15:00 23:00 Intake Total 0 ml 120 ml 1200 ml Output Total 900 ml Balance 0 ml 120 ml 300 ml Intake Oral 0 ml 120 ml 1200 ml Output Urine Total 900 ml # Voids 1 2 # Bowel Movements 2 4 Result Diagram: 03/07/1815 03/07/1815 Imaging Last Impressions Head/Brain Mag Res Venography 03/02/18 0000 Signed Impressions: Service Date/Time: Friday, March 02, 2018 08:36 - CONCLUSION: No evidence for cerebral venous thrombosis. Ata Friedman MD FACR Chest X-Ray 03/01/18 0000 Signed Impressions: Service Date/Time: Thursday, March 01, 2018 11:16 - CONCLUSION: No acute disease. Francisco Figueroa MD Brain MRI 03/01/18 0000 Signed Impressions: Service Date/Time: Thursday, March 01, 2018 15:27 - CONCLUSION: 1. 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 MRV examination may be performed if there is significant persistent clinical concern regarding dural venous sinus thrombosis. 2. Otherwise, unremarkable MRI examination of the brain. Lenny Dee MD Liver Ultrasound 02/28/18 0000 Signed Impressions: Service Date/Time: Wednesday, February 28, 2018 09:14 - CONCLUSION: 1. Gallbladder sludge 2. Medical renal disease Floyd Villatoro MD Head CT 02/28/18 0000 Signed Impressions: Service Date/Time: Wednesday, February 28, 2018 12:31 - CONCLUSION: 1. No intracranial abnormalities seen. 2. Air within the soft tissues adjacent to the posterior and lateral aspects of the right maxillary sinus. Francisco Figueroa MD Abdomen X-Ray 02/22/18 0000 Signed Impressions: Service Date/Time: Thursday, February 22, 2018 17:47 - CONCLUSION: 1. NG tip in stomach. Kevin Wells MD Lower Extremity CT 02/21/18 0000 Signed Impressions: Service Date/Time: Wednesday, February 21, 2018 17:58 - CONCLUSION: 1. Subcutaneous edema in the right lower extremity as above. No discrete abscess. No air locules to suggest gas gangrene. Kevin Wells MD Tibia/Fibula X-Ray 02/20/18 0000 Signed Impressions: Service Date/Time: Tuesday, February 20, 2018 11:01 - CONCLUSION: Soft tissue swelling and irregularity with no radiopaque foreign body. Balaji Zimmerman MD Foot X-Ray 02/20/18 0000 Signed Impressions: Service Date/Time: Tuesday, February 20, 2018 11:00 - CONCLUSION: Soft tissue swelling with no radiopaque foreign body or underlying bony abnormality. Balaji Zimmerman MD Objective Remarks GENERAL: Awake alert and oriented talkative and cooperative appears very sickly pale and cachectic SKIN: Warm and dry. Left below the knee amputation dressed right lower extremity with multiple large wounds involving the [place] downward CARDIOVASCULAR: Regular rate and rhythm. S1-S2 no S3 or S4 RESPIRATORY: No accessory muscle use. Clear to auscultation. Breath sounds equal bilaterally. GASTROINTESTINAL: Abdomen soft, non-tender, nondistended. MUSCULOSKELETAL: Extremities without clubbing, cyanosis, or edema. No obvious deformities. Left below the knee amputation dressed. Lower extremity with multiple large wounds involving the [place] downward NEUROLOGICAL: Awake and alert. No obvious cranial nerve deficits. Motor grossly within normal limits. 4 out of 5 muscle strength in the arms and legs. Normal speech. Procedures 4/3 left BKA 4/7 revision and wound closure left BKA and right heel debridement A/P Problem List: (1) Cardiomyopathy ICD Code: I42.9 - Cardiomyopathy, unspecified Assessment and Plan 42 year old female: Resp failure status post vent. Resolved Encephalopathy secondary to substance abuse Hyponatremia Polysubstance abuse positive for amphetamines, cocaine, benzodiazepine, opioids Fever with suspected sepsis Left LLE with cellulitis, abscess and gangrene s/p LEFT BKA. Right foot heel with cellulitis and gangrene Bilateral Hand cellulitis with blisters/wounds. Kleb pneumo UTI. History of IV drug use Sinus Tachycardia Uncontrolled hypertension Cardiomyopathy Hypoalbuminemia Malnutrition Postoperative pain Seizures Hepatitis C Cryoglobulinemia Vasculitis : AMIE positive. Acute resp failure on vent. Plan: Neuro: Monitor neuro status, awake and alert UDS: Cocaine, Amphetamines, Opiates, Benzos. Counselled no visitors except mother [place] every 4 hours as needed for pain control status post LEFT BKA [place] 10-325 q 6hr on Keppra, Neuro is following. 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 Coreg 3.125mg BID, On Lopressor/ Labetalol IV PRN 02/22 2-D echo EF 25-30% Pulmonary: Oxygen keep sats >92% Bronchodilators, CXR 03/01: No acute disease GI/liver: On PO diet per speech Elevated AST, US liver: Gallbladder sludge. Medical renal disease Hepatitis profile reactive Hep C IgG ab Hepatitis C Renal/: Monitor renal function, I/O's, electrolytes replacement per protocol. TSH: 1.58. Renal is following- on salt tabs 1gram BID serum osm: 250, urine osm: 627 likely SIADH. ID: ID following, on Cefazolin and po Levaquin Status post left BKA. May require more surgery involving the right lower extremity Wound care for lower extremity leg wounds. Wound culture-staph aureus Sputum culture-Klebsiella C-diff PCR negative on 03/01 Endocrine: SSI for glycemic control if needed. Heme: Follow CBC. Transfuse for hemoglobin less than 8 Msk: Vascular surgery following , S/P left BKA. Prophylaxis:SQ Heparin, SCDs for DVT prophylaxis , on Pepcid for GI prophylaxis Discharge Planning not ready for discharge on IV antibiotic. May also need more surgery involving the right lower extremity Jhonny Wu MD Mar 08, 2018 12:40
[2018-03-08] MEDS: LORazepam 1 MG TAB PO PRN ×2 (14:45→21:23)
[2018-03-08 16:00] VITALS: BP 102/61; PULSE 114; RESP 20; TEMP 98.4; O2SAT 99
[2018-03-08 20:00] VITALS: BP 123/59; PULSE 115; RESP 20; TEMP 98.5; O2SAT 98
[2018-03-09] VITALS: BP 103/52; PULSE 113; RESP 20; TEMP 98.8; O2SAT 97
[2018-03-09] MEDS: ACETAMINOPHEN/HYDROcodone 325 MG/10 MG TAB PO PRN (03:38)
[2018-03-09] MEDS: LORazepam 1 MG TAB PO PRN (03:38)
[2018-03-09] MEDS: ceFAZolin 2 GM/DEX PREMIX 50 ML IV SCH ×2 (03:38→13:03)
[2018-03-09] MEDS: HEPARIN SODIUM - SQ 10,000 UNITS/ML VIAL SQ SCH (03:39)
[2018-03-09] MEDS: INSULIN NovoLIN REGULAR SUPPLEMENTAL SCALE SQ SCH ×2 (03:41→10:00)
[2018-03-09] MEDS: CHLORHEXIDINE GLUCONATE 2 % 1 PACK (2 CLOTHS) TOP SCH (03:43)
[2018-03-09 04:00] VITALS: BP 128/84; PULSE 112; RESP 20; TEMP 99.4; O2SAT 98
[2018-03-09 06:42] VITALS: BP 118/79; PULSE 105; RESP 20; TEMP 97.9; O2SAT 99
[2018-03-09 08:00] VITALS: BP 118/82; PULSE 107; RESP 17; TEMP 97.9; O2SAT 99
[2018-03-09] MEDS: CHLORHEXIDINE 0.12% (ORAL KIT) 15 ML CUP MT SCH (08:00)
--- NOTE | 2018-03-09 09:12 | HHI.IDPN ---
Subjective Subjective Remarks PATIENT SEEN AND EXAMINED WITH DR. GUAMAN is a 42 y/o CF with PMHx significant for recurrent cellulitis, Hepatitis C treatment naive, IV drug abuse, reported history of Crohn's disease , COPD. Patient has had multiple hospitalizations most recently in Oct 2017 and 2017 for recurrent bilateral LE cellulitis. 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 Cryoglobulins were detected in low amounts and AMIE was positive. Patient received IV antibiotics and wound care and was discharged to follow up with in wound care clinic. Patient was discharged to infusion clinic to receive dose of Dalbavancin on 01/07 at that time her wounds her superficial fewer and not as many with less evidence of infection. To complicate matters patient does not have a home and her last year. She has been treated with steroids for her vasculitis related non infected ulcers in the past. The rest of the history was obtained by review of medical records. With this background patient was brought in by ambulance from a temporary longterm/living facility where she is staying for evaluation of bilateral leg pain and altered mental status. One of the other residents became concerned about the patient today because of the way she was acting. They noticed several sores on her bilateral lower extremities. The patient admitted to others that she abused drugs a day prior to admission. Due to worsening mentation patient was intubated for airway protection. ICU course: Patient has high grade fevers and foot appeared to be worsening due to concern for Necrotizing fascitis a Surgery consult was placed. Podiatry evaluated patient and a stat Vascular consult to has been placed. Gen Surgery evaluated patient with me. The general opinion seems to be non salvageable left leg but await Vascular opinion. Currently not on pressors. Remains sedated. UO good. Skin lesions noted on bilateral hands on dorsal aspect with blisters. Also tip of nose appears necrotic with surrounding erythema. ID consulted for evaluation of sepsis, Mment of LLE wet septic gangrene, Right foot heel gangrene and bilateral LE cellulitis. Notes reviewed Reports episode of soft stool incontinence c/o buttock pain from ulcer denies any fever or chills denies any N/V or abdominal pain denies any rash denies is dysuria afebrile C diff negative WBC normal - 03/07/1802/27 had further revision of Left BKA and Right foot heel I&D in OR. Extubated 02/27. Antibiotics Ancef IV Levaquin Current Medications Medications (Trade) Dose Ordered Sig/Malgorzata Route Start Time Stop Time Status Last Admin (NS Flush) 2 ml UNSCH PRN IV FLUSH 02/20/18 15:00 (NS Flush) 2 ml BID IV FLUSH 02/20/18 21:00 03/08/18 21:24 (Tylenol) 650 mg Q6H PRN PO 02/20/18 15:00 03/04/18 04:42 (Zofran Inj) 4 mg Q6H PRN IV PUSH 02/20/18 15:00 02/27/18 20:06 (Duoneb Neb) 1 ampule Q4HR NEB PRN INH 02/20/18 15:00 02/27/18 03:21 (Heparin Inj) 5,000 units Q12H SQ 02/20/18 16:00 03/08/18 05:24 Miscellaneous Information 1 Q361D XX 02/20/18 15:00 (Chlorhexidine 2% Cloth) Taper DAILY@04 TOP 02/21/18 04:00 02/17/19 03:59 03/04/18 04:00 (Chlorhexidine 2% Cloth) 3 pack UNSCH PRN TOP 02/20/18 15:00 (Damari-Colace) 1 tab BID PO 02/21/18 09:00 03/07/18 21:57 (Milk Of Magnesia Liq) 30 ml Q12H PRN PO 02/20/18 15:00 (Senokot) 17.2 mg Q12H PRN PO 02/20/18 15:00 (Dulcolax Supp) 10 mg DAILY PRN RECTAL 02/20/18 15:00 (Lactulose Liq) 30 ml DAILY PRN PO 02/20/18 15:00 02/25/18 20:14 (Lopressor Inj) 5 mg Q6H PRN IV PUSH 02/20/18 16:45 03/02/18 04:12 (Trandate Inj) 10 mg Q4H PRN IV PUSH 02/20/18 16:45 03/02/18 06:21 (Peridex 0.12% Liq) 15 ml BID@08,20 MT 02/20/18 20:00 03/03/18 20:00 (Pepcid Liq) 20 mg BID NG 02/22/18 21:00 03/08/18 22:29 (Tears Naturale Opth Soln) 1 drop Q4H PRN EACH EYE 02/22/18 13:00 02/23/18 07:47 (Crary 10-325 Mg) 1 tab Q6H PRN PO 02/25/18 18:00 03/09/18 03:38 (Levaquin) 500 mg DAILY@1100 PO 02/28/18 11:00 03/08/18 09:39 (D50w (Vial) Inj) 50 ml UNSCH PRN IV PUSH 02/28/18 08:45 (Glucagon Inj) 1 mg UNSCH PRN OTHER 02/28/18 08:45 (NovoLIN R SUPPLEMENTAL SCALE) 1 Q6H SQ 02/28/18 10:00 (Coreg) 3.125 mg Q12HR PO 03/01/18 09:00 03/08/18 21:23 (Santyl Oint) 1 applic DAILY TOPICAL 03/02/18 17:30 03/08/18 08:11 Cefazolin Sodium/ Dextrose 50 ml @ 100 mls/hr Q8H IV 03/06/18 12:00 03/09/18 03:38 (Prinivil) 10 mg DAILY PO 03/08/18 09:00 03/08/18 08:11 (Keppra) 500 mg Q12HR PO 03/07/18 11:00 03/08/18 21:23 (Sodium Chloride) 1 gm BID PO 03/07/18 21:00 03/08/18 21:23 (Ativan) 1 mg Q6H PRN PO 03/08/18 14:00 03/09/18 03:38 Lines PIV - Line sites with no e.o infection Past Medical History Past Medical History Crohn's disease per history Hepatitis C treatment melissa Recurrent cellulitis Past Surgical History Appendectomy Hysterectomy ? Some bowel surgery for Crohn's (Krysta Shelton) Allergies: Coded Allergies: codeine (Verified Allergy, Severe, 02/20/18) ketorolac (Verified Allergy, Severe, 02/20/18) penicillin G (Verified Allergy, Intermediate, Rash, 02/20/18) Objective . Vital Signs Date Time Temp Pulse Resp B/P (MAP) Pulse Ox O2 Delivery O2 Flow Rate FiO2 03/09/18 06:42 97.9 105 20 118/79 (92) 99 03/09/18 04:00 99.4 112 20 128/84 (99) 98 03/09/18 00:00 98.8 113 20 103/52 (69) 97 03/08/18 20:00 98.5 115 20 123/59 (80) 98 03/08/18 16:00 98.4 114 20 102/61 (75) 99 03/08/18 12:00 98.6 102 19 131/96 (108) 100 Imaging Last Impressions Head/Brain Mag Res Venography 03/02/18 0000 Signed Impressions: Service Date/Time: Friday, March 02, 2018 08:36 - CONCLUSION: No evidence for cerebral venous thrombosis. Ata Friedman MD FACR Chest X-Ray 03/01/18 0000 Signed Impressions: Service Date/Time: Thursday, March 01, 2018 11:16 - CONCLUSION: No acute disease. Francisco Figueroa MD Brain MRI 03/01/18 0000 Signed Impressions: Service Date/Time: Thursday, March 01, 2018 15:27 - CONCLUSION: 1. 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 MRV examination may be performed if there is significant persistent clinical concern regarding dural venous sinus thrombosis. 2. Otherwise, unremarkable MRI examination of the brain. Lenny Dee MD Liver Ultrasound 02/28/18 0000 Signed Impressions: Service Date/Time: Wednesday, February 28, 2018 09:14 - CONCLUSION: 1. Gallbladder sludge 2. Medical renal disease Floyd Villatoro MD Head CT 02/28/18 0000 Signed Impressions: Service Date/Time: Wednesday, February 28, 2018 12:31 - CONCLUSION: 1. No intracranial abnormalities seen. 2. Air within the soft tissues adjacent to the posterior and lateral aspects of the right maxillary sinus. Francisco Figueroa MD Abdomen X-Ray 02/22/18 0000 Signed Impressions: Service Date/Time: Thursday, February 22, 2018 17:47 - CONCLUSION: 1. NG tip in stomach. Kevin Wells MD Lower Extremity CT 02/21/18 0000 Signed Impressions: Service Date/Time: Wednesday, February 21, 2018 17:58 - CONCLUSION: 1. Subcutaneous edema in the right lower extremity as above. No discrete abscess. No air locules to suggest gas gangrene. Keivn Wells MD Tibia/Fibula X-Ray 02/20/18 0000 Signed Impressions: Service Date/Time: Tuesday, February 20, 2018 11:01 - CONCLUSION: Soft tissue swelling and irregularity with no radiopaque foreign body. Balaji Zimmerman MD Foot X-Ray 02/20/18 0000 Signed Impressions: Service Date/Time: Tuesday, February 20, 2018 11:00 - CONCLUSION: Soft tissue swelling with no radiopaque foreign body or underlying bony abnormality. Balaji Zimmerman MD Physical Exam GENERAL: Thin cachetic chronically ill appearing female, looks older than stated age, INAD. Awake and alert. SKIN: Cool and dry. Multiple necrotic appearing wounds both hands, tip of nose and R leg and foot. (+)stage 3 sacral pressure ulcer HEAD: Atraumatic. Normocephalic. +temporal wasting EYES: Pupils equal round and reactive. No scleral icterus. No injection or drainage. MMM. ENT: No nasal discharge, has lesion tip of nose NECK: Trachea midline. CARDIOVASCULAR: Regular rate and rhythm without murmurs, gallops, or rubs. RESPIRATORY: Clear to auscultation. Breath sounds equal bilaterally. No wheezes , rales, or rhonchi. GASTROINTESTINAL: Abdomen soft, non-tender, nondistended. MUSCULOSKELETAL: Dry dressing Lt BKA stump, suture line intact with small amount of serosanguineous drainage noted. Left knee contracted, patient unable to extend. Wounds dry R foot and ankle area with eschar. Eschars both hand, nose and L forehead, all dry NEUROLOGICAL: Grossly non-focal PSYCHIATRIC: Calm and cooperative IV line sites with no e.o infection. (Krysta Shelton) Assessment & Plan Remarks Sepsis present on admission, better MSSA foot infection Left leg and foot with cellulitis, abscess and gangrene. s/p BKA. - 02/27 had further revision of Left BKA and Right foot heel I&D in OR. - reportedly, patient continuously hitting stump against bed Right foot heel with cellulitis and gangrene - better Bilateral Hand cellulitis with blisters/wounds. - better Kleb pneumo UTI. Bilateral LE cellulitis with blisters. Clinically looks less likely to be Necrotizing fascitis and no gas on imaging. Does not appear to be spreading beyond margins demarcated with marker. Hepatitis C Cryoglobulinemia Vasculitis : AMIE positive. IVDA Acute resp failure on vent. Hyponatremia Penicillin allergy: rash. has tolerated Cephalosporins in past. Recs: Continue Ancef IV Continue Levaquin oral Continue to monitor Left BKA incision, sutures intact, small amount of serosanguineous drainage follow clinically if areas on face and hands worsen consider hand surgery consult and plastics for nose. Eschars in Right LE to be followed, appear to be improving per patient report. Follow podiatry recs. Monitor progress (Krysta Shelton) Remarks The exam, history, and the medical decision-making described in the above note were completed with the assistance of the mid-level provider. I reviewed and agree with the findings presented. I attest that I had a [id number] encounter with the patient on the same day, and personally performed and documented my assessment and findings in the medical record. Delayed entry patient seen yday. She was threatening to leave with Mom to [place]. data entry assistant Padmaja notified: she informs me patients mom had gone to get wheel chair for patient. Informed patient she needs more surgery. data entry assistant informed me that patient was caught abusing drugs in hospital on several occasions and visitors have been limited. Continue antibiotics. Counseled patient to stay in hospital as consequences of leaving treatment could include loss of limb or worsening sepsis, morbidity and mortality (Zora Guaman MD) Krysta Shelton Mar 09, 2018 09:12 Zora Guaman MD Mar 10, 2018 10:02
[2018-03-09 12:00] VITALS: BP 100/68; PULSE 111; RESP 17; TEMP 98; O2SAT 98
--- NOTE | 2018-03-09 12:22 | HHI.PR ---
Subjective Remarks Drug abuse reported. Visitors to patient's room have been discontinued except for patient's mother. Patient's primary complaint today is lack of ability to ambulate freely. Objective Vital Signs Date Time Temp Pulse Resp B/P (MAP) Pulse Ox O2 Delivery O2 Flow Rate FiO2 03/09/18 08:00 97.9 107 17 118/82 (94) 99 03/09/18 06:42 97.9 105 20 118/79 (92) 99 03/09/18 04:00 99.4 112 20 128/84 (99) 98 03/09/18 00:00 98.8 113 20 103/52 (69) 97 03/08/18 20:00 98.5 115 20 123/59 (80) 98 03/08/18 16:00 98.4 114 20 102/61 (75) 99 I/O 03/08/18 03/08/18 03/08/18 03/09/18 03/09/18 03/09/18 07:00 15:00 23:00 07:00 15:00 23:00 Intake Total 240 ml 900 ml 50 ml Output Total 900 ml 400 ml Balance 240 ml 0 ml -350 ml Intake Oral 240 ml 850 ml IV Total 50 ml 50 ml Output Urine Total 900 ml 400 ml # Voids 2 # Bowel Movements 1 1 Result Diagram: 03/07/1815 03/07/1815 Procedures s/p Left BKA s/p Right ulcer debridement to heel and lower extremity Objective Remarks GENERAL: NAD, A&Ox3 HEAD: Normocephalic. NECK: Supple, trachea midline. No lymphadenopathy. EYES: No scleral icterus. No injection or drainage. CARDIOVASCULAR: Regular rate and rhythm without murmurs, gallops, or rubs. RESPIRATORY: Breath sounds equal bilaterally. No accessory muscle use. GASTROINTESTINAL: Abdomen soft, non-tender, nondistended. MUSCULOSKELETAL: No cyanosis, or edema. SKIN: Warm and dry. Scabs diffusely NEURO: No focal neurological deficitis. A/P Problem List: (1) Ulcer of right foot ICD Code: L97.519 - Non-pressure chronic ulcer of other part of right foot with unspecified severity Status: Chronic (2) Ulcer of right heel ICD Code: L97.419 - Non-pressure chronic ulcer of right heel and midfoot with unspecified severity Status: Chronic (3) Ulcer of right [place] ICD Code: L97.819 - Non-pressure chronic ulcer of other part of right lower leg with unspecified severity Status: Chronic (4) Tobacco abuse ICD Code: Z72.0 - Tobacco use Status: Chronic (5) Cocaine abuse ICD Code: F14.10 - Cocaine abuse, uncomplicated Status: Chronic Assessment and Plan 42 year old female admitted with respiratory failure and bilateral lower extremity infections and sepsis. Sepsis Fever Resolved Resp failure status post vent Related to sepsis resolved Encephalopathy secondary to substance abuse Resolved Left LLE with cellulitis, abscess and gangrene s/p LEFT BKA. Right foot heel with cellulitis and gangrene Bilateral Hand cellulitis with blisters/wounds. S/P left BKA Vascular surgery following Ceftezole and continued Levaquin continued ID following Paton every 4 hours as needed for pain control status post LEFT BKA Hypoalbuminemia Malnutrition Continue p.o. nutrition Cryoglobulinemia Follow CBC Chronic vasculitis Possible lupus AMIE positive Follow clinically Polysubstance abuse History of IV drug use UDS is positive for cocaine, Amphetamines, Opiates, Benzos. History of abuse in the hospital most recently last night Seizure disorder Continue Keppra Uncontrolled hypertension Cardiomyopathy Recurrent tachycardia congestive heart failure Continue lisinopril Continue Coreg 2-D echo EF 25-30%, on 02/22/2018 Hepatitis C Standard precautions Follows an outpatient Hyponatremia SIADH SolTab supplementation twice daily DVT prophylaxis Heparin Discharge Planning Patient remains IV antibiotic No pair source available for long-term facility May need more surgery involving the right lower extremity Clayton Kruse MD Mar 09, 2018 12:22
[2018-03-09] MEDS: CARVEDILOL 3.125 MG TAB PO SCH (13:00)
[2018-03-09] MEDS: levETIRAcetam 500 MG TAB PO SCH (13:00)
[2018-03-09] MEDS: SODIUM CHLORIDE 0.9% FLUSH 10 ML FLUSH IV FLUSH SCH (13:00)
[2018-03-09] MEDS: FAMOTIDINE 40 MG/5 ML LIQ 50 ML BTL NG SCH (13:00)
[2018-03-09] MEDS: COLLAGENASE OINT 30 GM TUBE TOPICAL SCH (13:01)
[2018-03-09] MEDS: SODIUM CHLORIDE 1 GRAM TAB PO SCH (13:01)
[2018-03-09] MEDS: LISINOPRIL 10 MG TAB PO SCH (13:01)
[2018-03-09] MEDS: DOCUSATE SODIUM 50 MG/SENNA 8.6 MG TAB PO SCH (13:01)
[2018-03-09] MEDS: LEVOFLOXACIN 500 MG TAB PO SCH (13:02)
== END 2018-03-09 15:23 | disposition left against medical advice (07) | DRG 853 ==
LOC: NEPE 09:50 → NEDA 13:14 → HIME 17:25 → N07A 03-06 17:53
PROVIDERS: ADMIT Hospitalist; ATTEND Hospitalist
PROC: 5A1955Z Respiratory Ventilation, Greater than 96 Consecutive Hours (ICD-10-PCS; 2018-02-20)
PROC: 0BH17EZ Insertion of Endotracheal Airway into Trachea, Via Natural or Artificial Opening (ICD-10-PCS; 2018-02-20)
PROC: 0Y6J0Z1 Detachment at Left Lower Leg, High, Open Approach (ICD-10-PCS; principal; 2018-02-22 14:59)
PROC: 30233N1 Transfusion of Nonautologous Red Blood Cells into Peripheral Vein, Percutaneous Approach (ICD-10-PCS; 2018-02-23)
PROC: 0Y6J0Z1 Detachment at Left Lower Leg, High, Open Approach (ICD-10-PCS; 2018-02-26)
PROC: 0JBQ0ZZ Excision of Right Foot Subcutaneous Tissue and Fascia, Open Approach (ICD-10-PCS; 2018-02-26)
PROC: 0JBN0ZZ Excision of Right Lower Leg Subcutaneous Tissue and Fascia, Open Approach (ICD-10-PCS; 2018-02-26)
DX: A41.9 Sepsis, unspecified organism (principal); J96.00 Acute respiratory failure, unspecified whether with hypoxia or hypercapnia; R65.21 Severe sepsis with septic shock; G92 Toxic encephalopathy; I96 Gangrene, not elsewhere classified; R56.9 Unspecified convulsions; E46 Unspecified protein-calorie malnutrition; E22.2 Syndrome of inappropriate secretion of antidiuretic hormone; I42.9 Cardiomyopathy, unspecified; L03.115 Cellulitis of right lower limb; K50.90 Crohn's disease, unspecified, without complications; L03.116 Cellulitis of left lower limb; Z68.1 Body mass index [BMI] 19.9 or less, adult; L03.114 Cellulitis of left upper limb; L03.113 Cellulitis of right upper limb; L97.419 Non-pressure chronic ulcer of right heel and midfoot with unspecified severity; L97.819 Non-pressure chronic ulcer of other part of right lower leg with unspecified severity; L02.416 Cutaneous abscess of left lower limb; J44.9 Chronic obstructive pulmonary disease, unspecified; L97.519 Non-pressure chronic ulcer of other part of right foot with unspecified severity; D89.1 Cryoglobulinemia; E88.09 Other disorders of plasma-protein metabolism, not elsewhere classified; F11.10 Opioid abuse, uncomplicated; B19.20 Unspecified viral hepatitis C without hepatic coma; F17.210 Nicotine dependence, cigarettes, uncomplicated; R00.0 Tachycardia, unspecified; F15.10 Other stimulant abuse, uncomplicated; F14.10 Cocaine abuse, uncomplicated; F19.10 Other psychoactive substance abuse, uncomplicated; R23.8 Other skin changes; R76.8 Other specified abnormal immunological findings in serum; I10 Essential (primary) hypertension; A49.01 Methicillin susceptible Staphylococcus aureus infection, unspecified site; E87.6 Hypokalemia; Z59.0 Homelessness; Z79.899 Other long term (current) drug therapy; Z88.0 Allergy status to penicillin; Z85.41 Personal history of malignant neoplasm of cervix uteri; Z91.19 Patient's noncompliance with other medical treatment and regimen
CPT/HCPCS: 31500; 36430; 36556; 36600; 51702; 70450; 70546; 70553; 71045; 73590; 73630; 73701; 74018; 76705; 76937; 80048; 80053; 80074; 80202; 80307; 81001; 82140; 82595; 82805; 82948; 83036; 83605; 83735; 83930; 83935; 84100; 84132; 84145; 84155; 84295; 84439; 84443; 84702; 85014; 85018; 85025; 85027; 85610; 85730; 86403; 86850; 86900; 86901; 86920; 87015; 87040; 87070; 87077; 87102; 87116; 87147; 87186; 87205; 87206; 87493; 88307; 88311; 93005; 93308; 94002; 94003; 94664; 95819; 96361; 96365; 96375; 96376; A9579; J0690; J0692; J1100; J1644; J1953; J1956; J2060; J2250; J2270; J2370; J2405; J3010; J3370; J3475; J3480; J7030; J7050; J7120; P9016; Q9967